=== PATIENT | female | born 1960 | race Caucasian/White ===

== ENCOUNTER 2016-12-23 05:19 | Emergency (ER) | payer OTHER ==
[~2016-12-23] VITALS: Ht 154.9 cm; Wt 124.7 kg
[~2016-12-23 05:19] MED LIST: /DIVA50TA PO; /GLIM2TA PO; /PANT40TA PO; ADV100INH INH; ADV250INH INH; ALBU17IN INH; ANTI25TA PO; ASPI1TAB PO; ATOR40TA PO; BUDE180INH INH; CARA1TAB2 PO; COLA50CA3 PO; COZA100T2 PO; CYMB60CA3 PO; DEPA500T2 PO; DULO1CAP3 PO; GABA-282 PO; GABA300C2 PO; GLIM2TAB PO; HALO05TA PO; HYDR-3363 PO; HYDR25T PO; IMIT100T PO; JANU100T PO; LEVO112T PO; LEVO137T PO; LIDO1DIS2 TD; LOSA50TA20 PO; LYRI150C PO; METF1000 PO; MIRA3350 PO; OMEP40CA2 PO; PERC5TAB6 PO; REST15CA PO; SYNT175T2 PO; SYNT25TA PO; TEMA15CA2 PO; TRAZ100T2 PO; TRAZ100T4 PO; TYLE500T7 PO; ULTR50TA PO; ZETI10TA21 PO; ZIPR80CA PO; ZIPR80CA12 PO; ZIPR80CAP PO
[2016-12-23] MEDS ORDERED: MORPHINE 4 MG/ML 1ML SYRINGE IV ONE (07:45)
[2016-12-23] MEDS ORDERED: NS 500 ML IV ONE (07:45)
[2016-12-23] MEDS ORDERED: ONDANSETRON 4MG/2ML VIAL (J2405) IV ONE (07:45)
[2016-12-23 08:08] LABS: BASO % 0.6 % (0.0-1.0); EOS # 0.4 K/mm3 (0.0-0.50); LARGE UNSTAINED CELL # 0.1 K/mm3 (0.0-0.4); LARGE UNSTAINED CELL % 0.9 % (0.0-4.0); LYMPH # 1.8 K/mm3 (1.5-4.5); MEAN CORPUSCULAR HEMOGLOBIN 27.7 pg (27.0-33.0); MEAN CORPUSCULAR HGB CONC 30.7 g/dl (32.0-36.5); MEAN CORPUSCULAR VOLUME 90.3 fl (80.0-96.0); MONO # 0.3 K/mm3 (0.0-0.8); MONO % 4.7 % (0.0-5.0); NEUTROPHILS # 3.5 K/mm3 (1.8-7.7); NEUTROPHILS % 58.7 % (36.0-66.0); PLATELET COUNT, AUTOMATED 434 k/mm3 (150-450); RED CELL DISTRIBUTION WIDTH 18.9 % (11.5-14.5)
[2016-12-23 08:17] LABS: ALBUMIN 3.5 GM/DL (3.2-5.2); ALBUMIN/GLOBULIN RATIO 0.85 (1.00-1.93); ALKALINE PHOSPHATASE 62 U/L (45-117); ALT/SGPT 13 U/L (12-78); ANION GAP 7 MEQ/L (8-16); AST/SGOT 12 U/L (15-37); BILIRUBIN,DIRECT < 0.1 MG/DL (0.0-0.2); BILIRUBIN,TOTAL 0.2 MG/DL (0.2-1.0); BLOOD UREA NITROGEN 14 MG/DL (7-18); CALCIUM LEVEL 8.9 MG/DL (8.5-10.1); CARBON DIOXIDE LEVEL 24 MEQ/L (21-32); CHLORIDE LEVEL 104 MEQ/L (98-107); CREATININE FOR GFR 0.94 MG/DL (0.55-1.02); GLOMERULAR FILTRATION RATE > 60.0 (>51); GLUCOSE, FASTING 168 MG/DL (70-105); POTASSIUM SERUM 4.2 MEQ/L (3.5-5.1); SODIUM LEVEL 135 MEQ/L (136-145); TOTAL PROTEIN 7.6 GM/DL (6.4-8.2)
[2016-12-23] MEDS ORDERED: PERC5TAB6 PO (08:45)
[2016-12-23] MEDS ORDERED: ZOFR4TAB3 PO (08:45)
[2016-12-23 08:47] VITALS: BP 138/91
== END 2016-12-23 08:58 | disposition home or self-care (01) ==
LOC: M ED 07:36
DX: K21.9 Gastro-esophageal reflux disease without esophagitis (principal); M54.5 Low back pain; I10 Essential (primary) hypertension; R56.9 Unspecified convulsions; E11.9 Type 2 diabetes mellitus without complications; E03.9 Hypothyroidism, unspecified; F33.9 Major depressive disorder, recurrent, unspecified; Z79.899 Other long term (current) drug therapy; Z79.82 Long term (current) use of aspirin; Z88.8 Allergy status to other drugs, medicaments and biological substances; Z91.018 Allergy to other foods; Z91.013 Allergy to seafood
CPT/HCPCS: 80048; 80076; 83690; 85025; 96361; 96372; 96374; 99282; J2405

== ENCOUNTER → 2017-02-01 | Outpatient (CLI) | payer OTHER ==
[~2017-02-01] MED LIST changes: +ZOFR4TAB3 PO
[2017-02-01 19:38] LABS: BASO % 0.2 % (0.0-1.0); EOS # 0.2 K/mm3 (0.0-0.50); EOS % 3.5 % (0.0-3.0); LARGE UNSTAINED CELL # 0.1 K/mm3 (0.0-0.4); LARGE UNSTAINED CELL % 1.8 % (0.0-4.0); LYMPH # 1.3 K/mm3 (1.5-4.5); LYMPH % 22.7 % (24.0-44.0); MEAN CORPUSCULAR HEMOGLOBIN 29.9 pg (27.0-33.0); MEAN CORPUSCULAR HGB CONC 30.1 g/dl (32.0-36.5); MEAN CORPUSCULAR VOLUME 99.4 fl (80.0-96.0); MONO # 0.3 K/mm3 (0.0-0.8); MONO % 5.7 % (0.0-5.0); NEUTROPHILS # 3.9 K/mm3 (1.8-7.7); NEUTROPHILS % 66.1 % (36.0-66.0); PLATELET COUNT, AUTOMATED 571 k/mm3 (150-450); RED CELL DISTRIBUTION WIDTH 18.5 % (11.5-14.5); WHITE BLOOD COUNT 5.9 K/mm3 (4.0-10.0)
[2017-02-01 20:25] LABS: ALBUMIN 3.3 GM/DL (3.2-5.2); ALBUMIN/GLOBULIN RATIO 0.89 (1.00-1.93); BILIRUBIN,TOTAL 0.3 MG/DL (0.2-1.0); CALCIUM LEVEL 8.8 MG/DL (8.5-10.1); CREATININE FOR GFR 1.02 MG/DL (0.55-1.02); FREE T4 1.38 NG/DL (0.76-1.46); GLOMERULAR FILTRATION RATE 59.3 (>51); POTASSIUM SERUM 4.1 MEQ/L (3.5-5.1)
== END ==
LOC: M WUC 16:08
PROVIDERS: ATTEND Nurse Practitioner Family
DX: R10.84 Generalized abdominal pain (principal); E03.9 Hypothyroidism, unspecified; I10 Essential (primary) hypertension

== ENCOUNTER 2017-02-08 20:26 | Observation (INO) | payer OTHER ==
[~2017-02-08] VITALS: Ht 154.9 cm; Wt 120.5 kg
[2017-02-08] MEDS ORDERED: TOUJ1.2I SC (21:06)
[2017-02-08] MEDS ORDERED: DEXTROSE 50% 50 ML SYRINGE IV STA (22:10)
[2017-02-08 22:51] LABS: BASO % 0.2 % (0.0-1.0); EOS # 0.2 K/mm3 (0.0-0.50); EOS % 2.5 % (0.0-3.0); LARGE UNSTAINED CELL # 0.1 K/mm3 (0.0-0.4); LARGE UNSTAINED CELL % 0.8 % (0.0-4.0); LYMPH # 1.7 K/mm3 (1.5-4.5); LYMPH % 27.1 % (24.0-44.0); MEAN CORPUSCULAR HEMOGLOBIN 29.1 pg (27.0-33.0); MEAN CORPUSCULAR HGB CONC 30.6 g/dl (32.0-36.5); MEAN CORPUSCULAR VOLUME 95.2 fl (80.0-96.0); MONO # 0.3 K/mm3 (0.0-0.8); NEUTROPHILS # 3.9 K/mm3 (1.8-7.7); NEUTROPHILS % 64.4 % (36.0-66.0); PLATELET COUNT, AUTOMATED 435 k/mm3 (150-450); RED CELL DISTRIBUTION WIDTH 18.8 % (11.5-14.5); WHITE BLOOD COUNT 6.1 K/mm3 (4.0-10.0)
[2017-02-08 23:20] LABS: ANION GAP 6 MEQ/L (8-16); BLOOD UREA NITROGEN 10 MG/DL (7-18); CALCIUM LEVEL 8.6 MG/DL (8.5-10.1); CARBON DIOXIDE LEVEL 28 MEQ/L (21-32); CHLORIDE LEVEL 105 MEQ/L (98-107); CREATININE FOR GFR 0.88 MG/DL (0.55-1.02); GLOMERULAR FILTRATION RATE > 60.0 (>51); GLUCOSE, FASTING 140 MG/DL (70-105); SODIUM LEVEL 139 MEQ/L (136-145)
[2017-02-09] MEDS ORDERED: D5W/0.45% SODIUM CHLORIDE 1,000 ML IV SCH (00:15)
[2017-02-09] MEDS ORDERED: ACETAMINOPHEN TAB 650MG DOSE (2X325MG) PO ONE (00:30)
[2017-02-09] MEDS ORDERED: ONDANSETRON 4MG/2ML VIAL (J2405) IV PRN (00:45)
[2017-02-09] MEDS ORDERED: TRAZ150T14 PO (01:07)
[2017-02-09] MEDS ORDERED: GEOD40CA2 PO (01:07)
[2017-02-09] MEDS ORDERED: ONDA1TAB15 PO (01:07)
[2017-02-09] MEDS ORDERED: DULO1CAP2 PO (01:07)
[2017-02-09] MEDS ORDERED: ASPI81TAEC PO (01:07)
[2017-02-09 01:10] LABS: ALBUMIN/GLOBULIN RATIO 0.91 (1.00-1.93); ALKALINE PHOSPHATASE 53 U/L (45-117); ALT/SGPT 17 U/L (12-78); AMYLASE 51 U/L (25-115); AST/SGOT 17 U/L (15-37); BILIRUBIN,DIRECT < 0.1 MG/DL (0.0-0.2); BILIRUBIN,TOTAL 0.2 MG/DL (0.2-1.0); TOTAL PROTEIN 6.3 GM/DL (6.4-8.2)
[2017-02-09] MEDS ORDERED: TEMAZEPAM 15 MG CAP PO PRN (01:15)
[2017-02-09] MEDS ORDERED: ONDANSETRON 4 MG TAB (S0181) PO PRN (01:15)
[2017-02-09] MEDS ORDERED: ALBUTEROL 90 MCG/ACT 8GM HFA INHALER INH PRN (01:15)
[2017-02-09 01:16] LABS: ERYTHROCYTE SEDIMENTATION RATE 22 mm/hr (0-30)
[2017-02-09] MEDS ORDERED: ISOVUE-370 76% 100ML VIAL (Q9967) As Ordered ONE (02:00)
[2017-02-09] MEDS: D5W/0.45% SODIUM CHLORIDE 1,000 ML IV SCH ×2 (02:00→11:53)
[2017-02-09 02:25] VITALS: BP 133/61
[2017-02-09] MEDS: traZODone 50 MG TAB PO SCH ×2 (02:37→20:33)
[2017-02-09] MEDS: DIVALPROEX 500MG *ER* TAB PO SCH ×3 (02:37→20:32)
[2017-02-09] MEDS: ATORVASTATIN 20 MG TAB PO SCH ×2 (02:37→20:31)
[2017-02-09] MEDS: OMEPRAZOLE 20 MG CAP PO SCH ×3 (02:37→20:34)
[2017-02-09] MEDS: GABAPENTIN 300 MG CAP PO SCH ×5 (02:37→20:32)
[2017-02-09] MEDS: hydrOXYzine 25 MG TAB PO SCH ×5 (02:37→20:34)
--- NOTE | 2017-02-09 02:40 | REPUSA ---
CLINICAL HISTORY: Abdominal pain. TECHNIQUE: Multiple axial, sagittal and coronal CT images were obtained through the abdomen and pelvi s after administration of intravenous contrast material. COMMENTS: Fluid-filled distended stomach suggestive of gastroparesis. The liver is mildly enlarged decreased attenuation without mass or defect. There is mild extrahepatic biliary ductal dilatation. The spleen is normal. The gallbladder is within normal limits. The pancre as is of normal contour and attenuation characteristics. There is no evidence of adrenal mass. Both kidneys demonstrate prompt and equal nephrograms. The kidneys are normal in size, shape and conf iguration. There is no evidence of renal or ureteral mass. No renal or ureteral calculi are identifie d. There is no hydroureter or hydronephrosis. No evidence for appendicitis. There is no bowel wall thickening. No evidence for small or large karlos l obstruction. There is no evidence of abdominal ascites or lymphadenopathy. There is no evidence of intrinsic or extrinsic bladder mass. There is no pelvic ascites or lymphadeno jose. Images of the lung bases show no evidence of pleural or parenchymal mass. There are no pleural effusi ons. The bony structures are free of lytic or blastic lesions. Multilevel degenerative changes are seen in volving the thoracolumbar spine. Scattered calcifications are seen involving the aorta and major bran ches compatible with atherosclerosis. IMPRESSION: Fluid-filled distended stomach suggestive of gastroparesis. Mild hepatomegaly with fatty liver infiltration. Mild extrahepatic biliary ductal dilatation measuring 8.8 mm. Moderate large bowel fecal stasis. Thank you for your kind referral of this patient.
[2017-02-09] MEDS: ZIPRASIDONE 20MG CAPSULE (GEODON) PO SCH ×3 (02:48→20:38)
[2017-02-09] MEDS ORDERED: MOM 30ML SUSPENSION UDC PO ONE (03:00)
[2017-02-09] MEDS ORDERED: FLEET ENEMA PR PRN (03:00)
[2017-02-09] MEDS ORDERED: GI COCKTAIL 50ML BTL(HYOSCYAMINE/MAALOX/LIDOCAINE VISCOUS)(1:3:1) PO PRN (03:15)
[2017-02-09] MEDS: SUCRALFATE 1 GM TAB PO SCH ×3 (05:59→17:27)
[2017-02-09 06:00] VITALS: BP 116/54
[2017-02-09] MEDS: METOCLOPRAMIDE 10 MG TAB PO SCH ×3 (06:00→17:27)
[2017-02-09] MEDS ORDERED: LEVOTHYROXINE 0.15 MG TAB (150 MCG) PO SCH (06:00)
[2017-02-09] MEDS: LEVOTHYROXINE 0.025 MG TAB (25 MCG) PO SCH (06:24)
[2017-02-09] MEDS: LEVOTHYROXINE 0.15 MG TAB (150 MCG) PO SCH (06:25)
[2017-02-09 07:27] LABS: BASO % 0.3 % (0.0-1.0); EOS # 0.2 K/mm3 (0.0-0.50); EOS % 2.7 % (0.0-3.0); LARGE UNSTAINED CELL # 0.1 K/mm3 (0.0-0.4); LYMPH # 2.1 K/mm3 (1.5-4.5); LYMPH % 32.6 % (24.0-44.0); MEAN CORPUSCULAR HEMOGLOBIN 29.6 pg (27.0-33.0); MEAN CORPUSCULAR HGB CONC 31.2 g/dl (32.0-36.5); MEAN CORPUSCULAR VOLUME 95.1 fl (80.0-96.0); MONO # 0.5 K/mm3 (0.0-0.8); MONO % 7.3 % (0.0-5.0); NEUTROPHILS # 3.4 K/mm3 (1.8-7.7); NEUTROPHILS % 55.1 % (36.0-66.0); PLATELET COUNT, AUTOMATED 411 k/mm3 (150-450); RED CELL DISTRIBUTION WIDTH 18.7 % (11.5-14.5); WHITE BLOOD COUNT 6.1 K/mm3 (4.0-10.0)
[2017-02-09 07:50] LABS: ALBUMIN 2.7 GM/DL (3.2-5.2); ALBUMIN/GLOBULIN RATIO 0.9 (1.00-1.93); BILIRUBIN,DIRECT 0.1 MG/DL (0.0-0.2); BILIRUBIN,TOTAL 0.2 MG/DL (0.2-1.0); TOTAL PROTEIN 5.7 GM/DL (6.4-8.2)
[2017-02-09 07:55] LABS: ANION GAP 7 MEQ/L (8-16); BLOOD UREA NITROGEN 8 MG/DL (7-18); CALCIUM LEVEL 8.1 MG/DL (8.5-10.1); CARBON DIOXIDE LEVEL 28 MEQ/L (21-32); CHLORIDE LEVEL 105 MEQ/L (98-107); CREATININE FOR GFR 0.85 MG/DL (0.55-1.02); GLOMERULAR FILTRATION RATE > 60.0 (>51); GLUCOSE, FASTING 76 MG/DL (70-105); MAGNESIUM LEVEL 1.9 MG/DL (1.8-2.4); POTASSIUM SERUM 3.5 MEQ/L (3.5-5.1); SODIUM LEVEL 140 MEQ/L (136-145)
--- NOTE | 2017-02-09 08:00 | REP ---
Clinical: Hypoglycemia . Comparison: 12/17/2014 . Findings: The mediastinum and cardiac silhouette are stable and within normal limits for portable technique. The lung bullock are clear without acute consolidation, effusion, or pneumothorax. Skeletal structures are intact. Impression: Normal portable chest x-ray Signed by Petey Walker MD 02/09/2017 07:51 A
[2017-02-09] MEDS ORDERED: E-Z-GAS II EFFERVESCENT PACKET (SODIUM BICARB./CITRIC ACID/SIMETHICONE) As Ordered ONE (08:11)
[2017-02-09] MEDS ORDERED: E-Z-HD 98% w/w 340GM SUSP BTL As Ordered ONE (08:11)
[2017-02-09] MEDS ORDERED: E-Z-PAQUE 96% w/w SUSP 176GM BTL As Ordered ONE ×2 (08:11→10:01)
--- NOTE | 2017-02-09 09:57 | REP ---
RIGHT UPPER QUADRANT SONOGRAPHY: HISTORY: Abdominal pain evaluate gallbladder. Comparison is made with CT images from earlier on this date. FINDINGS: Scanning through the right upper quadrant of the abdomen demonstrates multiple shadowing calculi filling the lumen of the gallbladder. No pericholecystic fluid is seen. No wall thickening is seen. The common bile duct is normal measuring 0.6 cm in greatest diameter. No focal liver lesion is seen. Pancreas is unremarkable. There is mild atrophy of the right kidney without evidence of hydronephrosis cyst or mass. Right kidney measures 8.8 x 6.3 x 4.8 cm. IMPRESSION: Cholelithiasis with multiple stones filling the lumen of the gallbladder. Otherwise negative. Signed by Ralph Mckeon MD 02/09/2017 05:07 P
[2017-02-09] MEDS ORDERED: GLUCOSE 4 GM CHEW TABLET PO PRN (11:45)
[2017-02-09] MEDS ORDERED: DEXTROSE 50% 50 ML SYRINGE IV PRN (11:45)
[2017-02-09] MEDS ORDERED: GLUCAGON FOR INJ 1 MG VIAL (J1610) SC PRN (11:45)
[2017-02-09] MEDS: HumaLOG INSULIN (NovoLOG) PER UNIT SC SCH ×2 (13:55→16:58)
[2017-02-09 14:00] VITALS: BP 131/63
[2017-02-09] MEDS: SENOKOT S TAB PO SCH ×2 (14:10→20:32)
[2017-02-09] MEDS: DULoxetine 30 MG CAP (CYMBALTA) PO SCH (14:10)
[2017-02-09] MEDS: ACETAMINOPHEN TAB 650MG DOSE (2X325MG) PO PRN ×2 (14:10→20:48)
[2017-02-09] MEDS: ASPIRIN 81 MG ENTERIC TAB PO SCH (14:11)
[2017-02-09] MEDS: LOSARTAN 50 MG TAB PO SCH (14:11)
[2017-02-09] MEDS: ENOXAPARIN 40 MG/0.4 ML SYRINGE (J1650) SC SCH (14:12)
--- NOTE | 2017-02-09 14:51 | IPNPDOC ---
Subjective Date Seen The patient was seen on 02/09/17. Subjective Chief Complaint/HPI The patient is a 56-year-old female admitted with a reason for visit of Hypoglycemia Associated With Type 2 Diabetes Melli. General: Denies: Chills, Night Sweats Constitutional: Denies: Chills, Fever Eyes: Denies: Pain, Vision change ENT: Denies: Head Aches, Ear Pain Skin: Denies: Rash, Lesions Pulmonary: Denies: Dyspnea, Cough Cardiovascular: Denies: Chest Pain, Palpitations Gastrointestinal: Reports: Nausea, Vomiting, Abdominal Pain Genitourinary: Denies: Dysuria, Frequency Hematologic: Denies: Bruising Endocrine: Denies: Polydipsia, Polyphagia Objective Physical Examination General Exam: Positive: Alert, Cooperative, No Acute Distress ENT Exam: Positive: Atraumatic, Mucous membr. moist/pink Neck Exam: Negative: JVD Chest Exam: Positive: Clear to auscultation, Normal air movement Heart Exam: Positive: Rate Normal, Normal S1, Normal S2 Abdomen Exam: Positive: Soft, Negative: Tenderness Extremity Exam: Positive: Swelling (2+ non pitting edema), Negative: Tenderness Assessment /Plan Plan/VTE VTE Prophylaxis Ordered?: Yes Plan Nausea, Vomiting with Abdominal Pain likely 2/2 Gastroparesis from Long Standing Diabetes Mellitus CT Scan of the Abd notable for fluid filled distended stomach suggestive of underlying gastroparesis, with moderate large bowel fecal stasis Ultrasound of the gallbladder notable for cholelithiasis with no evidence of cholecystitis Upper GI series ordered Continue with supportive treatment of Reglan, Zofran, milk of magnesia, Fleet enema Encourage ambulation Patient states that she is feeling better today and she has been started on a by mouth diet We will continue to monitor her progress Hypoglycemia likely secondary to underlying gastroparesis Patient has been started on a by mouth diet Insulin sliding scale for now We will continue to monitor blood sugar levels Diabetes mellitus Continue insulin sliding scale as noted above We will restart the patient's long-acting insulin once she is able to tolerate by mouth diet Diabetic Neuropathy Cont Gabapentin, Duloxetine Hypertension, stable Continue losartan Dyslipidemia Continue statin Hypothyroidism Continue levothyroxine History of seizures, stable Continue Depakote Insomnia Temazepam prn qhs GERD Continue PPI DVT prophylaxis Lovenox VS, I&O, 24H, Fishbone Vital Signs/I&O Vital Signs Date Time Temp Pulse Resp B/P (MAP) Pulse Ox O2 Delivery O2 Flow Rate FiO2 02/09/17 06:00 97.3 98 20 116/54 (74) 92 Room Air I&O- Last 24 Hours up to 6 AM 02/09/17 06:00 Intake Total 310 ml Output Total 200 ml Balance 110 ml Laboratory Data 24H LABS Laboratory Tests 2 02/08/17 20:53: Bedside Glucose (Misc Panel) 93 02/08/17 22:09: Bedside Glucose (Misc Panel) 41L 02/08/17 22:22: White Blood Count 6.1, Red Blood Count 3.95L, Hemoglobin 11.5L, Hematocrit 37.6 , Mean Corpuscular Volume 95.2, Mean Corpuscular Hemoglobin 29.1, Mean Corpuscular Hemoglobin Concent 30.6L, Red Cell Distribution Width 18.8H, Platelet Count 435, Neutrophils (%) (Auto) 64.4, Lymphocytes (%) (Auto) 27.1, Monocytes (%) (Auto) 5.0, Eosinophils (%) (Auto) 2.5, Basophils (%) (Auto) 0.2, Neutrophils # (Auto) 3.9, Lymphocytes # (Auto) 1.7, Monocytes # (Auto) 0.3, Eosinophils # (Auto) 0.2, Basophils # (Auto) 0.0, Large Unclassified Cells % 0.8 , Large Unclassified Cells # 0.1, Erythrocyte Sedimentation Rate 22 02/08/17 22:51: Anion Gap 6L, Glomerular Filtration Rate > 60.0, Blood Urea Nitrogen 10, Creatinine 0.88, Sodium Level 139, Potassium Level 4.0, Chloride Level 105, Carbon Dioxide Level 28, Calcium Level 8.6, Aspartate Amino Transf (AST/SGOT) 17 , Alanine Aminotransferase (ALT/SGPT) 17, Alkaline Phosphatase 53, Total Bilirubin 0.2, Direct Bilirubin < 0.1, Total Creatine Kinase 47, Creatine Kinase MB 2.0, Creatine Kinase MB Relative Index 4.25H, Troponin I < 0.02, C- Reactive Protein, Quantitative < 0.30, Total Protein 6.3L, Albumin 3.0L, Albumin /Globulin Ratio 0.91L, Amylase Level 51, Lipase 93 02/08/17 23:13: Bedside Glucose (Misc Panel) 85 02/09/17 00:09: Bedside Glucose (Misc Panel) 78 02/09/17 01:42: Bedside Glucose (Misc Panel) 83 02/09/17 02:00: Estimated Mean Plasma Glucose 146H, Hemoglobin A1c 6.7H, Lactic Acid Level 1.3 02/09/17 03:02: Bedside Glucose (Misc Panel) 78 02/09/17 03:48: Urine Appearance CLEAR, Urine Color YELLOW, Urine pH 6.0, Urine Specific [place] 1.042, Urine Protein NEGATIVE, Urine Glucose (UA) NEGATIVE, Urine Ketones NEGATIVE, Urine Urobilinogen 0.2, Urine Bilirubin NEGATIVE, Urine Leukocyte Esterase NEGATIVE, Urine Blood 3+H, Urine Nitrite NEGATIVE, Urine WBC (Auto) 0, Urine RBC (Auto) 2, Urine Hyaline Casts (Auto) 0, Urine Bacteria (Auto ) NEGATIVE, Urine Squamous Epithelial Cells 2, Urine Sperm (Auto) 02/09/17 06:23: Bedside Glucose (Misc Panel) 77 02/09/17 07:03: White Blood Count 6.1, Red Blood Count 3.41L, Hemoglobin 10.1L, Hematocrit 32.4L , Mean Corpuscular Volume 95.1, Mean Corpuscular Hemoglobin 29.6, Mean Corpuscular Hemoglobin Concent 31.2L, Red Cell Distribution Width 18.7H, Platelet Count 411, Neutrophils (%) (Auto) 55.1, Lymphocytes (%) (Auto) 32.6, Monocytes (%) (Auto) 7.3H, Eosinophils (%) (Auto) 2.7, Basophils (%) (Auto) 0.3 , Neutrophils # (Auto) 3.4, Lymphocytes # (Auto) 2.1, Monocytes # (Auto) 0.5, Eosinophils # (Auto) 0.2, Basophils # (Auto) 0.0, Large Unclassified Cells % 2.0 , Large Unclassified Cells # 0.1, Anion Gap 7L, Glomerular Filtration Rate > 60.0, Blood Urea Nitrogen 8, Creatinine 0.85, Sodium Level 140, Potassium Level 3.5, Chloride Level 105, Carbon Dioxide Level 28, Calcium Level 8.1L, Magnesium Level 1.9, Aspartate Amino Transf (AST/SGOT) 14L, Alanine Aminotransferase (ALT/ SGPT) 16, Alkaline Phosphatase 52, Total Bilirubin 0.2, Direct Bilirubin 0.1, Total Protein 5.7L, Albumin 2.7L, Albumin/Globulin Ratio 0.90L, Amylase Level 48 , Lipase 93, Thyroid Stimulating Hormone (TSH) 1.200 02/09/17 13:36: Bedside Glucose (Misc Panel) 68L CBC/BMP Laboratory Tests 02/08/17 22:22 Red Blood Count 3.95 L, Mean Corpuscular Volume 95.2, Mean Corpuscular Hemoglobin 29.1, Mean Corpuscular Hemoglobin Concent 30.6 L, Red Cell Distribution Width 18.8 H, Neutrophils (%) (Auto) 64.4, Lymphocytes (%) (Auto) 27.1, Monocytes (%) (Auto) 5.0, Eosinophils (%) (Auto) 2.5, Basophils (%) (Auto ) 0.2, Neutrophils # (Auto) 3.9, Lymphocytes # (Auto) 1.7, Monocytes # (Auto) 0.3, Eosinophils # (Auto) 0.2, Basophils # (Auto) 0.0 02/08/17 22:51 Calcium Level 8.6 02/09/17 07:03 Red Blood Count 3.41 L, Mean Corpuscular Volume 95.1, Mean Corpuscular Hemoglobin 29.6, Mean Corpuscular Hemoglobin Concent 31.2 L, Red Cell Distribution Width 18.7 H, Neutrophils (%) (Auto) 55.1, Lymphocytes (%) (Auto) 32.6, Monocytes (%) (Auto) 7.3 H, Eosinophils (%) (Auto) 2.7, Basophils (%) ( Auto) 0.3, Neutrophils # (Auto) 3.4, Lymphocytes # (Auto) 2.1, Monocytes # (Auto ) 0.5, Eosinophils # (Auto) 0.2, Basophils # (Auto) 0.0, Calcium Level 8.1 L Microbiology Microbiology 02/09/17 Urine Culture, Received Pending JEMMA DUBOSE MD February 09, 2017 14:50
--- NOTE | 2017-02-09 14:55 | REP ---
Partial small bowel follow-through study: History: Intractable vomiting. Abdominal pain. 1 minute 11 seconds of fluoroscopy time is utilized. 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 There is air and stool in a nondilated colon. Contrast opacified urine is seen in the urinary bladder from the previous CT study. Single contrast upper GI series shows a normal esophagus and gastroesophageal junction. Minimal reflux is observed. No stricture or hiatal hernia is seen. The stomach displays normal rugal folds and a normal mucosal pattern. No mass or ulcer is appreciated. Duodenal bulb is fully distensible and clear. C-loop is not widened. Small bowel follow-through study shows normal opacification of nondilated jejunal and ileal loops. No fold thickening, obstructive lesion, mass or ulcer is seen. Impression: Minimal gastroesophageal reflux. No other abnormality. Signed by Ralph Mckeon MD 02/09/2017 05:08 P
[2017-02-09] MEDS: MOM 30ML SUSPENSION UDC PO PRN ×2 (15:21→20:46)
[2017-02-09] MEDS: traMADol 50 MG TAB PO PRN (15:21)
[2017-02-09] MEDS ORDERED: HumaLOG INSULIN (NovoLOG) PER UNIT SC SCH (21:00)
[2017-02-09 22:00] VITALS: BP 130/60
[2017-02-10] MEDS: SUCRALFATE 1 GM TAB PO SCH ×3 (00:16→12:13)
[2017-02-10] MEDS: METOCLOPRAMIDE 10 MG TAB PO SCH ×3 (00:16→12:13)
[2017-02-10] MEDS: ACETAMINOPHEN TAB 650MG DOSE (2X325MG) PO PRN (01:11)
[2017-02-10] MEDS: traMADol 50 MG TAB PO PRN (05:23)
[2017-02-10] MEDS: LEVOTHYROXINE 0.15 MG TAB (150 MCG) PO SCH (05:40)
[2017-02-10] MEDS: LEVOTHYROXINE 0.025 MG TAB (25 MCG) PO SCH (05:40)
[2017-02-10 06:00] VITALS: BP 122/68
[2017-02-10 06:31] LABS: BASO % 0.3 % (0.0-1.0); EOS # 0.3 K/mm3 (0.0-0.50); EOS % 6.2 % (0.0-3.0); LARGE UNSTAINED CELL # 0.1 K/mm3 (0.0-0.4); LARGE UNSTAINED CELL % 2.2 % (0.0-4.0); LYMPH # 2.4 K/mm3 (1.5-4.5); LYMPH % 44.1 % (24.0-44.0); MEAN CORPUSCULAR HEMOGLOBIN 30.1 pg (27.0-33.0); MEAN CORPUSCULAR HGB CONC 31.2 g/dl (32.0-36.5); MEAN CORPUSCULAR VOLUME 96.4 fl (80.0-96.0); MONO # 0.5 K/mm3 (0.0-0.8); MONO % 8.2 % (0.0-5.0); NEUTROPHILS # 2.2 K/mm3 (1.8-7.7); PLATELET COUNT, AUTOMATED 352 k/mm3 (150-450); RED CELL DISTRIBUTION WIDTH 18.1 % (11.5-14.5); WHITE BLOOD COUNT 5.5 K/mm3 (4.0-10.0)
[2017-02-10 06:39] LABS: ANION GAP 6 MEQ/L (8-16); BLOOD UREA NITROGEN 7 MG/DL (7-18); CALCIUM LEVEL 8.6 MG/DL (8.5-10.1); CARBON DIOXIDE LEVEL 31 MEQ/L (21-32); CHLORIDE LEVEL 103 MEQ/L (98-107); CREATININE FOR GFR 0.81 MG/DL (0.55-1.02); GLOMERULAR FILTRATION RATE > 60.0 (>51); GLUCOSE, FASTING 85 MG/DL (70-105); POTASSIUM SERUM 4.1 MEQ/L (3.5-5.1); SODIUM LEVEL 140 MEQ/L (136-145)
--- NOTE | 2017-02-10 07:55 | HPE ---
DATE OF ADMISSION: 02/09/2017 PRIMARY CARE PHYSICIAN: Dr. Ata Kamara HOSPITALIST ATTENDING: Dr. Ton Delgado CHIEF COMPLAINT: Confusion, diaphoresis. I felt like I was going to pass out. I was confused and sweating. HISTORY OF PRESENT ILLNESS: This is a 56-year-old female with history of diabetes, hypothyroidism, dyslipidemia, asthma, reflux, bipolar disorder, seizure disorder, hypertension and migraines who was in her usual state of health until a week ago when she developed epigastric abdominal pain, decrease in appetite described as periumbilical pain radiating across the abdomen, none to the back. Denies any dysuria, urgency, frequency, fever or chills at that time. She had seen Dr. Ata Kamara, recommended further imaging and followup in one week. The patient described the pain as a squeezing pain with vomiting about four times daily. She has kept a bland diet and had taken some Tylenol for relief. The pain came and went, no hematemesis, no bright blood per rectum. The patient had felt very constipated. Despite all of this, she had been persistently taking her insulin and diabetic medications. For the past two days she has been increasingly confused, diaphoretic and sweating at home feeling like she was going to pass out. She took her sugar this morning and it was 65. She came to the emergency room for evaluation due to persistent symptoms. She was found to have a glucose level of 41. Hospitalist service was called for admission. The patient denies weight gain, weight loss. She has had change in appetite since last week which was decreased in oral intake due to persistent abdominal pain. She denies any fever, but had chills, no cough, vomiting or diarrhea. No urinary tract infection (UTI) symptoms. Denies dysuria, urgency or frequency. No headaches. Hospitalist service was called for admission for persistent hypoglycemia most likely secondary to her insulin with decrease in oral intake at home. PAST MEDICAL HISTORY: 1. Seizure disorder. 2. Hypertension. 3. Migraines. 4. Diabetes. 5. Hypothyroidism. 6. Dyslipidemia. 7. Osteoarthritis. 8. Asthma. 9. Reflux. 10. Bipolar disorder. PAST SURGICAL HISTORY: 1. Colonoscopy. 2. Tubal ligation. SOCIAL HISTORY: Lives alone, denies alcohol, tobacco or illicit drug use. ALLERGIES: MOTRIN causing upset stomach, SEROQUEL seizures, CORN OIL diarrhea, and SHELLFISH. HOME MEDICATIONS: - budesonide one puff twice a day - levothyroxine 175 mcg daily - Toujeo 35 units nightly - aspirin 81 daily - atorvastatin 40 daily - valproic acid 500 mg twice a day - duloxetine 90 mg daily - gabapentin 300 mg three times a day - hydroxyzine 25 four times a day - losartan 50 daily - omeprazole 40 twice a day - Zofran 4 mg every 6 hours - temazepam 15 mg nightly as needed for sleep - trazodone 150 mg nightly - Geodon 40 mg twice a day FAMILY HISTORY: Noncontributory. REVIEW OF SYSTEMS: Per history of present illness (HPI), 12-point system otherwise with negative findings aside from positive findings on HPI. PHYSICAL EXAMINATION: VITAL SIGNS: Temperature 97.8, pulse 111 sinus, respiratory 20, blood pressure 132/61, 96% on room air. GENERAL: The patient is awake, alert, oriented times three, answering questions appropriately. HEENT: He is edentulous. Pupils equal, round, reactive to light and accommodation. Extraocular muscles intact. Normocephalic atraumatic. Moist mucous membranes. NECK: No cervical lymphadenopathy, thyromegaly or jugular venous distention. LUNGS: Clear to auscultation, no wheezing, rales, or rhonchi. HEART: S1, S2, sinus rhythm. No murmurs, rubs, gallops. ABDOMEN: Soft, nontender, nondistended. Positive bowel sounds in all four quadrants. No rebound, guarding. No hepatosplenomegaly or costovertebral angle (CVA) tenderness. EXTREMITIES: No cyanosis, clubbing or pitting edema. LABORATORY DATA: White count 6.1, hemoglobin 11, hematocrit 37, platelet count 435, 64% neutrophils. Sodium 130, potassium 4, chloride 105, carbon dioxide 28, BUN 10, creatinine 0.88, glucose 140, A1c 6.7, lactic acid 1.3, calcium 8.6, total bilirubin 0.2, direct bilirubin less than 0.1, AST 17, ALT 17, alkaline phosphatase 53, total CK 47, troponin less than 0.02, MB fraction of 2. C-reactive protein less than 0.3, total protein 6.3, albumin 3, amylase 51, lipase 93. IMAGING STUDIES: CT of the abdomen and pelvis shows fluid filled distended stomach suggestive of gastropareses, mildly enlarged liver without mass or defect. There is mild extrahepatic biliary ductal dilatation. Spleen is normal. Gallbladder is within normal. Pancreas is normal. Both kidneys demonstrate prompt and equal nephrograms, normal in size, shape and configuration. Mild hepatomegaly with fatty liver infiltration. Mild extrahepatic biliary ductal dilatation measuring 8.8 mm, moderate large bowel fecal stasis. ASSESSMENT AND PLAN: This is a 56-year-old female with history of diabetes, hypertension, migraines, hypothyroidism, dyslipidemia, asthma, reflux, bipolar disorder, with prepsychiatric admission presents to the emergency room with complaints of confusion, diaphoresis for the past two days almost feeling like passing out with a one week history of epigastric discomfort, decrease in oral intake and vomiting. The patient was found to have severe hypoglycemia due to continued use of long acting insulin by decreasing oral intake and vomiting at home and metabolic acidosis secondary to vomiting. The patient is found to have gastroparesis, and large fecal stasis on CT of the abdomen and pelvis, admitted as an inpatient for two midnights for the following issues: 1. Hypoglycemia secondary to long acting insulin despite decreased oral intake and vomiting for the past week. The patient's long acting insulin has been discontinued. She will be kept on fingersticks every four hours and D5 1/2 normal saline. Infectious etiology has been ruled out for now. 2. Mild extrahepatic biliary ductal dilatation. Obtain ultrasound of gallbladder. Rule out cholelithiasis due to complaints of abdominal pain and what appears to be biliary colic. 3. Gastroparesis. Reglan every 6 hours, Carafate and Protonix. 4. Type 2 diabetes. Nothing by mouth status for now in order to obtain ultrasound of the gallbladder due to complaints of severe gastric pain. Also, rule out hiatal hernia with upper gastrointestinal (GI) series. Rule out peptic ulcer disease, empiric treatment with GI cocktail. Carafate and continue on proton pump inhibitor (PPI). 5. Hypertension. Stable. Continue home dose of losartan. 6. Hypothyroidism. Continue Synthroid. Check TSH in the morning. 7. History of asthma. As needed albuterol. 8. Bipolar disorder. Continue psychiatric medications. 9. Neuropathy. Continue Neurontin. 10. Deep venous thrombosis (DVT) prophylaxis with compression stockings and Lovenox. MTDD
[2017-02-10] MEDS: HumaLOG INSULIN (NovoLOG) PER UNIT SC SCH ×2 (07:59→12:12)
[2017-02-10] MEDS: ASPIRIN 81 MG ENTERIC TAB PO SCH (09:52)
[2017-02-10] MEDS: SENOKOT S TAB PO SCH (09:52)
[2017-02-10] MEDS: ENOXAPARIN 40 MG/0.4 ML SYRINGE (J1650) SC SCH (09:52)
[2017-02-10] MEDS: DULoxetine 30 MG CAP (CYMBALTA) PO SCH (09:52)
[2017-02-10] MEDS: OMEPRAZOLE 20 MG CAP PO SCH (09:53)
[2017-02-10] MEDS: GABAPENTIN 300 MG CAP PO SCH (09:53)
[2017-02-10] MEDS: hydrOXYzine 25 MG TAB PO SCH ×2 (09:53→12:13)
[2017-02-10] MEDS: ZIPRASIDONE 20MG CAPSULE (GEODON) PO SCH (09:53)
[2017-02-10] MEDS: DIVALPROEX 500MG *ER* TAB PO SCH (09:53)
[2017-02-10 09:55] VITALS: BP 135/72
[2017-02-10] MEDS: LOSARTAN 50 MG TAB PO SCH (09:55)
[2017-02-10] MEDS ORDERED: TRAM50TA2 PO (11:03)
[2017-02-10] MEDS ORDERED: SENN1TAB2 PO (11:03)
--- NOTE | 2017-02-10 11:21 | DS.PDOC ---
Discharge Summary General Date of Admission February 08, 2017 at 22:02 Date of Discharge 02/10/17 Primary Care Physician: Ata Kamara [facility] Discharge Summary PROCEDURES PERFORMED DURING STAY: None. ADMITTING DIAGNOSES: 1. . Abdominal pain likely 2/2 Constipation from Gastroparesis from long standing DM 2. Hypoglycemic episode 2/2 Decreased PO Intake and Continuation of Basal Insulin 3. Cholelithiasis DISCHARGE DIAGNOSES: 1. . Abdominal pain likely 2/2 Constipation from Gastroparesis from long standing DM 2. Hypoglycemic episode 2/2 Decreased PO Intake and Continuation of Basal Insulin 3. Cholelithiasis COMPLICATIONS/CHIEF COMPLAINT: Hypoglycemia Associated With Type 2 Diabetes Melli. HISTORY OF PRESENT ILLNESS: . 56-year-old female with history of diabetes, hypothyroidism, dyslipidemia, asthma, reflux, bipolar disorder, seizure disorder, hypertension and migraines who was in her usual state of health until a week ago when she developed epigastric abdominal pain, decrease in appetite described as periumbilical pain radiating across the abdomen, but not to the back. The patient states that during this time she continued to take her normally prescribed basal insulin dose at night. She reports that she took her blood sugar levels this morning and it was noted to be in the 40s. The hospitalist service was called for admission. During hospitalization, a CT scan of the abdomen was obtained which revealed fluid distended stomach suggestive of gastroparesis with moderate large bowel fecal stasis. In addition, an ultrasound of the liver was obtained which revealed cholelithiasis with multiple stones filling the lumen of the gallbladder but no pericholecystic fluid was seen, and the common bile duct was measured within normal limits. LFT's and amylase/lipase were noted to be within normal limits. The patient was given a bowel regimen, antiemetics and analgesics as well as IV fluid hydration. Her diet was subsequently advanced and the patient has tolerated this well. During this time, the patient denies any abdominal pain and notes that she has felt much better after having a bowel movement. The patient denies any right upper quadrant pain and notes that her pain was more diffusely located across the abdomen. She denies similar occurrences in the past. I discussed the findings of cholelithiasis with multiple stones in the gallbladder with the patient. She states that she will follow up with her primary care physician and obtain a referral for surgery for possible cholecystectomy in the future. I advised the patient to cut down on her basal insulin dosing if she is not eating or able to tolerate a by mouth diet in the future due to sickness, to avoid hypoglycemic episodes. In addition I have prescribed the patient medication for stool softening as this appears to be the patient's primary problem on this admission. At this time, the patient states that she is eager to return home. Physical therapy has cleared the patient to return home. DISCHARGE MEDICATIONS: Please see below. ALLERGIES: Please see below. PHYSICAL EXAMINATION ON DISCHARGE: VITAL SIGNS: Please see below. General Exam: Positive: Alert, Cooperative, No Acute Distress ENT Exam: Positive: Atraumatic, Mucous membr. moist/pink Neck Exam: Negative: JVD Chest Exam: Positive: Clear to auscultation, Normal air movement Heart Exam: Positive: Rate Normal, Normal S1, Normal S2 Abdomen Exam: Positive: Soft, Negative: Tenderness Extremity Exam: Positive: Swelling (2+ non pitting edema), Negative: Tenderness LABORATORY DATA: Please see below. IMAGING: RIGHT UPPER QUADRANT SONOGRAPHY: HISTORY: Abdominal pain evaluate gallbladder. Comparison is made with CT images from earlier on this date. FINDINGS: Scanning through the right upper quadrant of the abdomen demonstrates multiple shadowing calculi filling the lumen of the gallbladder. No pericholecystic fluid is seen. No wall thickening is seen. The common bile duct is normal measuring 0.6 cm in greatest diameter. No focal liver lesion is seen. Pancreas is unremarkable. There is mild atrophy of the right kidney without evidence of hydronephrosis cyst or mass. Right kidney measures 8.8 x 6.3 x 4.8 cm. IMPRESSION: Cholelithiasis with multiple stones filling the lumen of the gallbladder. Otherwise negative. CLINICAL HISTORY: Abdominal pain. TECHNIQUE: Multiple axial, sagittal and coronal CT images were obtained through the abdomen and pelvis after administration of intravenous contrast material. COMMENTS: Fluid-filled distended stomach suggestive of gastroparesis. The liver is mildly enlarged decreased attenuation without mass or defect. There is mild extrahepatic biliary ductal dilatation. The spleen is normal. The gallbladder is within normal limits. The pancreas is of normal contour and attenuation characteristics. There is no evidence of adrenal mass. Both kidneys demonstrate prompt and equal nephrograms. The kidneys are normal in size, shape and configuration. There is no evidence of renal or ureteral mass. No renal or ureteral calculi are identified. There is no hydroureter or hydronephrosis. No evidence for appendicitis. There is no bowel wall thickening. No evidence for small or large bowel obstruction. There is no evidence of abdominal ascites or lymphadenopathy. There is no evidence of intrinsic or extrinsic bladder mass. There is no pelvic ascites or lymphadenopathy. Images of the lung bases show no evidence of pleural or parenchymal mass. There are no pleural effusions. The bony structures are free of lytic or blastic lesions. Multilevel degenerative changes are seen involving the thoracolumbar spine. Scattered calcifications are seen involving the aorta and major branches compatible with atherosclerosis. IMPRESSION: Fluid-filled distended stomach suggestive of gastroparesis. Mild hepatomegaly with fatty liver infiltration. Mild extrahepatic biliary ductal dilatation measuring 8.8 mm. Moderate large bowel fecal stasis. PROGNOSIS: Medically stable at this time ACTIVITY: As tolerated. DIET: . Carb consistent diet DISCHARGE PLAN: DISPOSITION: . Home DISCHARGE INSTRUCTIONS: 1. . Follow-up with primary care physician within one week 2. . Obtain outpatient surgery referral for follow up for possible cholecystectomy for cholelithiasis found on ultrasound of the liver/gallbladder 3. . Return to ER if symptoms return or worsen. DISCHARGE CONDITION: Stable. TIME SPENT ON DISCHARGE: Greater than 30 minutes. Vital Signs/I&Os Vital Signs Date Time Temp Pulse Resp B/P (MAP) Pulse Ox O2 Delivery O2 Flow Rate FiO2 02/10/17 09:55 135/72 02/10/17 06:00 96.5 88 18 98 Room Air I&O- Last 24 Hours up to 6 AM 02/10/17 06:00 Intake Total 1940 ml Output Total 900 ml Balance 1040 ml Laboratory Data Labs 24H Laboratory Tests 2 02/09/17 13:36: Bedside Glucose (Misc Panel) 68L 02/09/17 16:46: Bedside Glucose (Misc Panel) 97 02/09/17 19:34: Bedside Glucose (Misc Panel) 150H 02/09/17 20:04: Bedside Glucose (Misc Panel) 182H 02/10/17 06:13: White Blood Count 5.5, Red Blood Count 3.46L, Hemoglobin 10.4L, Hematocrit 33.4L , Mean Corpuscular Volume 96.4H, Mean Corpuscular Hemoglobin 30.1, Mean Corpuscular Hemoglobin Concent 31.2L, Red Cell Distribution Width 18.1H, Platelet Count 352, Neutrophils (%) (Auto) 39.0, Lymphocytes (%) (Auto) 44.1H, Monocytes (%) (Auto) 8.2H, Eosinophils (%) (Auto) 6.2H, Basophils (%) (Auto) 0.3 , Neutrophils # (Auto) 2.2, Lymphocytes # (Auto) 2.4, Monocytes # (Auto) 0.5, Eosinophils # (Auto) 0.3, Basophils # (Auto) 0.0, Large Unclassified Cells % 2.2 , Large Unclassified Cells # 0.1, Anion Gap 6L, Glomerular Filtration Rate > 60.0, Blood Urea Nitrogen 7, Creatinine 0.81, Sodium Level 140, Potassium Level 4.1, Chloride Level 103, Carbon Dioxide Level 31, Calcium Level 8.6 CBC/BMP Laboratory Tests 02/10/17 06:13 Red Blood Count 3.46 L, Mean Corpuscular Volume 96.4 H, Mean Corpuscular Hemoglobin 30.1, Mean Corpuscular Hemoglobin Concent 31.2 L, Red Cell Distribution Width 18.1 H, Neutrophils (%) (Auto) 39.0, Lymphocytes (%) (Auto) 44.1 H, Monocytes (%) (Auto) 8.2 H, Eosinophils (%) (Auto) 6.2 H, Basophils (%) (Auto) 0.3, Neutrophils # (Auto) 2.2, Lymphocytes # (Auto) 2.4, Monocytes # ( Auto) 0.5, Eosinophils # (Auto) 0.3, Basophils # (Auto) 0.0, Calcium Level 8.6 FSBS Laboratory Tests Test 02/09/17 13:36 02/09/17 16:46 02/09/17 19:34 02/09/17 20:04 Range/Units Bedside Glucose (Misc Panel) 68 97 150 182 70-105 MG/DL Microbiology Microbiology 02/09/17 Respiratory Virus Panel (PCR) (JEFFERY) - Final, Complete 02/09/17 Urine Culture - Final, Complete Discharge Medications Scheduled (Lee Verdugo) 300 Unit/Ml Inj, 35 UNIT SC QHS, (Reported) Aspirin (Aspirin EC) 81 Mg Tabec, 81 MG PO DAILY, (Reported) Atorvastatin Calcium (Atorvastatin Calcium) 40 Mg Tab, 40 MG PO QHS, (Reported) Budesonide (Pulmicort Flexhaler) 120 Puff/Inhaler Aerp, 1 PUFF INH BID, ( Reported) Divalproex Sodium (Depakote ER) 500 Mg Tab, 500 MG PO BID, (Reported) Duloxetine Hcl (Duloxetine HCl) 30 Mg Cap, 90 MG PO DAILY, (Reported) Gabapentin (Gabapentin) 300 Mg Cap, 300 MG PO TID, (Reported) Hydroxyzine HCl (Hydroxyzine HCl) 25 Mg Tab, 25 MG PO QID, (Reported) Levothyroxine Sodium (Synthroid) 175 Mcg Tab, 175 MCG PO DAILY, (Reported) Losartan Potassium (Losartan Potassium) 50 Mg Tab, 50 MG PO DAILY, (Reported) Omeprazole (Omeprazole) 40 Mg Cap, 40 MG PO BID, (Reported) Trazodone HCl (Trazodone HCl) 150 Mg Tab, 150 MG PO QHS, (Reported) Ziprasidone Hydrochloride (Geodon) 40 Mg Cap, 40 MG PO BID, (Reported) Scheduled PRN (Senna Plus 8.6-50 mg) 1 Tab Tab, 2 TAB PO BIDP PRN for cons Albuterol Sulfate (Ventolin Hfa) 200 Puff/8 Gm Aers, 2 PUFF INH Q4H PRN for SHORTNESS OF BREATH, (Reported) Ondansetron HCl (Ondansetron HCl) 4 Mg Tab, 4 MG PO Q6H PRN for NAUSEA OR VOMITING, (Reported) Temazepam (Temazepam) 15 Mg Cap, 15 MG PO QHS PRN for SLEEP, (Reported) Tramadol HCl (Tramadol HCl) 50 Mg Tab, 50 MG PO Q12HP PRN for PAIN Allergies Coded Allergies: Quetiapine (Unverified Allergy, Severe, SEIZURES, 12/23/16) Shellfish Allergy (Verified Allergy, Severe, ANAPHYLAXIS, 12/23/16) Atorvastatin (Verified Adverse Reaction, Intermediate, ELEVATED LIVER ENZYMES, 02/10/17) Pt. actively taking atorvastatin and denies having any allergic reaction. Liver enzymes are WNL at this time. [place] Oil (Verified Adverse Reaction, Intermediate, DIARRHEA, 12/23/16) Ibuprofen (Unverified Adverse Reaction, Mild, UPSET STOMACH, 12/23/16) JEMMA DUBOSE MD February 10, 2017 11:21
== END 2017-02-10 12:45 | disposition home health service (06) ==
LOC: EDBD 20:26 → M ED 22:01 → M ED INP 22:02 → M MSPAV 02-09 02:21
PROVIDERS: ADMIT General Practice; ATTEND Internal Medicine
DX: R10.33 Periumbilical pain (principal); E11.43 Type 2 diabetes mellitus with diabetic autonomic (poly)neuropathy; E11.649 Type 2 diabetes mellitus with hypoglycemia without coma; E03.9 Hypothyroidism, unspecified; E78.4 Other hyperlipidemia; J45.909 Unspecified asthma, uncomplicated; K21.9 Gastro-esophageal reflux disease without esophagitis; F31.9 Bipolar disorder, unspecified; K80.20 Calculus of gallbladder without cholecystitis without obstruction; I10 Essential (primary) hypertension; Z79.82 Long term (current) use of aspirin; Z79.899 Other long term (current) drug therapy; Z88.8 Allergy status to other drugs, medicaments and biological substances; Z91.013 Allergy to seafood

== ENCOUNTER 2019-02-01 05:30 | Emergency (ER) | payer OTHER ==
[~2019-02-01 05:30] MED LIST changes: -/DIVA50TA PO; -/GLIM2TA PO; -/PANT40TA PO; +AMAR1TAB5 PO; -ASPI1TAB PO; +ASPI81TA26 PO; +ASPI81TAEC PO; -ATOR40TA PO; +ATOR40TA75 PO; +DEPA1TAB3 PO; +DULO1CAP2 PO; -GABA-282 PO; +GABA-843 PO; +GEOD40CA13 PO; +HALO0.5H PO; -HALO05TA PO; -HYDR25T PO; +LOSA50TA88 PO; +ONDA4TAB5 PO; +PERC5TAB12 PO; -PERC5TAB6 PO; +PROT1TAB2 PO; +SENN1TAB40 PO; +TOUJ1.2I SC; +TRAM50TA2 PO; +TRAZ-163 PO; -TRAZ100T4 PO; +TRAZ1TAB14 PO; +ZOFR4TAB14 PO; -ZOFR4TAB3 PO
--- NOTE | 2019-02-01 07:11 | REP ---
Clinical: Trauma. Fall. Pain. Technique: Internal rotation, external rotation, and Y view of the left shoulder. Findings: Mild arthritic changes include cortical irregularity and subtle spurring at the acromioclavicular joint. The glenohumeral joint is intact and relatively normal for age. Subacromial space is normal. No acute fracture or dislocation is appreciated. Impression: Mild arthritic changes. No acute fracture or dislocation. Electronically Signed by Petey Walker MD 02/01/2019 07:03 A
--- NOTE | 2019-02-01 07:13 | REP ---
Clinical: Trauma. Fall. Pain. Technique: Neutral and frog lateral views of the left hip. Findings: Age-related degenerative change including joint space narrowing and subtle spurring along the acetabular roof noted. No acute fracture dislocation. Surrounding soft tissues normal. Impression: Age-related degenerative change. No acute fracture or dislocation. Electronically Signed by Petey Walker MD 02/01/2019 07:04 A
[2019-02-01] MEDS ORDERED: ACETAMINOPHEN 325 MG TAB PO ONE (07:15)
--- NOTE | 2019-02-01 07:15 | REP ---
Clinical: Fall. Pain. Technique: AP, lateral, bilateral oblique and sunrise views of the left knee. Findings: Early advanced tricompartmental osteoarthritic degenerative changes are appreciated. No obvious acute fracture or dislocation. No obvious effusion. Impression: Early advanced tricompartmental osteoarthritic changes. No acute fracture dislocation identified. If the patient remains symptomatic consider CT or MRI for further investigation. Electronically Signed by Petey Walker MD 02/01/2019 07:06 A
[2019-02-01 08:18] VITALS: BP 133/64
== END 2019-02-01 08:18 | disposition home or self-care (01) ==
LOC: M ED 05:30
DX: M17.12 Unilateral primary osteoarthritis, left knee (principal); M19.012 Primary osteoarthritis, left shoulder; M16.12 Unilateral primary osteoarthritis, left hip; W19.XXXA Unspecified fall, initial encounter; Y92.099 Unspecified place in other non-institutional residence as the place of occurrence of the external cause; Y93.01 Activity, walking, marching and hiking; Y99.9 Unspecified external cause status; E11.9 Type 2 diabetes mellitus without complications; I10 Essential (primary) hypertension; F43.10 Post-traumatic stress disorder, unspecified; F20.9 Schizophrenia, unspecified; F41.9 Anxiety disorder, unspecified; F31.9 Bipolar disorder, unspecified; M54.9 Dorsalgia, unspecified; R42 Dizziness and giddiness; K21.9 Gastro-esophageal reflux disease without esophagitis; J45.909 Unspecified asthma, uncomplicated; E78.5 Hyperlipidemia, unspecified; R56.9 Unspecified convulsions; Z87.440 Personal history of urinary (tract) infections; Z79.82 Long term (current) use of aspirin; Z79.899 Other long term (current) drug therapy; Z88.6 Allergy status to analgesic agent; Z88.8 Allergy status to other drugs, medicaments and biological substances; Z91.02 Food additives allergy status; Z91.018 Allergy to other foods

== ENCOUNTER 2019-03-20 20:09 | Emergency (ER) | payer OTHER ==
[~2019-03-20 20:09] MED LIST changes: -DULO1CAP2 PO; +DULO1CAP5 PO; +DULO1CAP6 PO
[2019-03-20 21:53] LABS: BASO # 0.1 10^3/uL (0.0-0.2); BASO % 0.6 % (0.0-1.0); EOS # 0.5 10^3/uL (0.0-0.50); EOS % 5.7 % (0.0-3.0); HEMATOCRIT 35.9 % (36.0-47.0); HEMOGLOBIN 11.2 g/dl (12.0-15.5); LYMPH # 2.1 10^3/uL (1.5-4.5); LYMPH % 25.4 % (24.0-44.0); MEAN CORPUSCULAR HEMOGLOBIN 28.2 pg (27.0-33.0); MEAN CORPUSCULAR HGB CONC 31.2 g/dl (32.0-36.5); MEAN CORPUSCULAR VOLUME 90.4 fl (80.0-96.0); MONO # 0.8 10^3/uL (0.0-0.8); MONO % 10.4 % (0.0-5.0); NEUTROPHILS # 4.6 10^3/uL (1.8-7.7); NEUTROPHILS % 57.3 % (36.0-66.0); PLATELET COUNT, AUTOMATED 285 10^3/uL (150-450); RED BLOOD COUNT 3.97 10^6/uL (4.00-5.40); WHITE BLOOD COUNT 8.1 10^3/uL (4.0-10.0)
[2019-03-20 22:25] LABS: ALBUMIN 3.5 GM/DL (3.2-5.2); BILIRUBIN,DIRECT 0.1 MG/DL (0.0-0.2); BILIRUBIN,TOTAL 0.3 MG/DL (0.2-1.0); CREATININE FOR GFR 1.02 MG/DL (0.55-1.30); GLOMERULAR FILTRATION RATE 58.8 (>45); TOTAL PROTEIN 7.8 GM/DL (6.4-8.2)
[2019-03-20 22:29] LABS: C REACTIVE PROTEIN QUANTITATIV < 0.30 MG/DL (0.00-0.30); NT-PRO BNP 149 PG/ML (<125)
[2019-03-20 23:09] VITALS: BP 160/94
[2019-03-20] MEDS ORDERED: LASI20TA3 PO (23:41)
[2019-03-20] MEDS ORDERED: FUROSEMIDE 20 MG TAB PO ONE (23:45)
== END 2019-03-21 00:03 | disposition home or self-care (01) ==
LOC: M ED 20:09
DX: R60.0 Localized edema (principal); E11.9 Type 2 diabetes mellitus without complications; J44.9 Chronic obstructive pulmonary disease, unspecified; Z79.4 Long term (current) use of insulin; Z79.51 Long term (current) use of inhaled steroids; Z79.82 Long term (current) use of aspirin; Z79.891 Long term (current) use of opiate analgesic; Z79.899 Other long term (current) drug therapy; Z88.6 Allergy status to analgesic agent; Z88.8 Allergy status to other drugs, medicaments and biological substances; Z91.013 Allergy to seafood; Z91.018 Allergy to other foods

== ENCOUNTER → 2019-04-18 | Outpatient (REF) | payer OTHER ==
[~2019-04-18] MED LIST changes: +LASI20TA3 PO
[2019-04-18 16:11] LABS: FREE T4 1.06 NG/DL (0.76-1.46); PERCENT SATURATION 10.7 % (13.2-45.0); THYROID STIMULATING HORMONE 18.6 uIU/ML (0.358-3.740)
[2019-04-18 16:13] LABS: BASO # 0.1 10^3/uL (0.0-0.2); BASO % 0.7 % (0.0-1.0); EOS # 0.4 10^3/uL (0.0-0.50); EOS % 5.5 % (0.0-3.0); LYMPH # 2.1 10^3/uL (1.5-4.5); MEAN CORPUSCULAR HEMOGLOBIN 28.6 pg (27.0-33.0); MEAN CORPUSCULAR HGB CONC 30.8 g/dl (32.0-36.5); MEAN CORPUSCULAR VOLUME 92.9 fl (80.0-96.0); MONO # 0.6 10^3/uL (0.0-0.8); MONO % 9.2 % (0.0-5.0); NEUTROPHILS # 3.6 10^3/uL (1.8-7.7); NEUTROPHILS % 52.7 % (36.0-66.0); PLATELET COUNT, AUTOMATED 297 10^3/uL (150-450); WHITE BLOOD COUNT 6.9 10^3/uL (4.0-10.0)
[2019-04-18 16:22] LABS: HEMOGLOBIN A1c 9.4 %
== END ==
LOC: M SFHCPLAZ 14:13
PROVIDERS: ATTEND Physician Assistant Medical
DX: D64.9 Anemia, unspecified (principal); E11.9 Type 2 diabetes mellitus without complications; E03.9 Hypothyroidism, unspecified

== ENCOUNTER → 2019-04-28 | Outpatient (CLI) | payer OTHER ==
--- NOTE | 2019-04-28 11:27 | REP ---
BILATERAL LOWER EXTREMITY DOPPLER VENOUS ULTRASOUND: Comparison: None. Technique: The deep venous system of the bilateral lower extremities is evaluated with weller scale imaging, compression ultrasound, color imaging and duplex Doppler interrogation. Examination from the groin through the popliteal fossa into the proximal calf. Local history: Lymphedema, debilitation, evaluate venous system. Findings: There is full compressibility from the common femoral vein in the inguinal region through the popliteal vein on both sides. Color imaging confirms patency throughout the course of the deep venous system. There is respiratory variation and augmented flow at all levels. Impression: 1. No Doppler venous ultrasound evidence of DVT in the bilateral lower extremities. 2. Technologist notes indicate visualization difficult due to body habitus considerations. No visible thrombus. Electronically Signed by Yariel Moss MD 04/28/2019 11:19 A
== END ==
LOC: M RAD 09:57
PROVIDERS: ATTEND Physician Assistant Medical
DX: R53.81 Other malaise (principal)

== ENCOUNTER 2019-05-18 10:00 | Outpatient (RCR) | payer OTHER ==
[~2019-05-18 10:00] MED LIST changes: -ACET500T15 PO; -ACET650T15 PO; -AMMO12CR7 TOP; -AMOX500T PO; -ASPI81TA85 PO; -BASA100I SC; -BUSP10TA; -BUSP10TA PO; -FURO20TA2 PO; -GLIM2TAB4 PO; -HYDR-643 PO; -HYDR50TA70 PO; -LEVO2TA PO; -LIDO5TD TD; -MELO7.5T35; -METF-791; -MOBI4TAB PO; -NYAM10003; -NYST1POW9 TOP; -OMEP-221 PO; +OMEP40CA2 PO; -OMEP40CA97 PO; -ONDA-83 PO; +ONDA4TAB5 PO; -PIOG1TAB36 PO; -SENN-53 PO; +SENN1TAB40 PO; -SYST1SOL OU; -TIZA2TA; -TIZA2TA PO; +TRAZ-163 PO; -TRAZ-257 PO; -VALP1CAP2 PO; -VOLT1GEL15 TOP
== END 2019-05-20 ==
LOC: M PT 10:00
PROVIDERS: ATTEND Physician Assistant Medical
DX: R53.81 Other malaise (principal)

== ENCOUNTER → 2019-05-18 | Outpatient (CLI) | payer OTHER ==
[~2019-05-18] MED LIST changes: +ACET500T15 PO; +ACET650T15 PO; +AMMO12CR7 TOP; +AMOX500T PO; +ASPI81TA85 PO; +BASA100I SC; +BUSP10TA; +BUSP10TA PO; +FURO20TA2 PO; +GLIM2TAB4 PO; +HYDR-643 PO; +HYDR50TA70 PO; +LEVO2TA PO; +LIDO5TD TD; +MELO7.5T35; +METF-791; +MOBI4TAB PO; +NYAM10003; +NYST1POW9 TOP; +OMEP-221 PO; -OMEP40CA2 PO; +OMEP40CA97 PO; +ONDA-83 PO; -ONDA4TAB5 PO; +PIOG1TAB36 PO; +SENN-53 PO; -SENN1TAB40 PO; +SYST1SOL OU; +TIZA2TA; +TIZA2TA PO; -TRAZ-163 PO; +TRAZ-257 PO; +VALP1CAP2 PO; +VOLT1GEL15 TOP
--- NOTE | 2019-05-18 21:25 | REP ---
Clinical: Right wrist pain. No history of trauma. Technique: AP and lateral views of the right wrist. Findings: Small calcifications and/or bony fragments are identified at the first carpometacarpal joint space and anteriorly noted on lateral radiograph which may represent elements of chondrocalcinosis and/or small fracture fragments related to prior trauma. Dilation is required. The carpal bones appear otherwise relatively intact and within normal limits for age. Distal radius and ulna as well as visualized metacarpal bones appear essentially age-appropriate. Impression: Nonspecific findings as described above. Electronically Signed by Petey Walker MD 05/18/2019 09:17 P
== END ==
LOC: M RAD 11:09
PROVIDERS: ATTEND Physician Assistant Medical
DX: M25.531 Pain in right wrist (principal)

== ENCOUNTER → 2019-05-26 | Outpatient (CLI) | payer OTHER ==
--- NOTE | 2019-06-01 08:11 | ECHO ---
DATE OF PROCEDURE: 05/26/2019 DATE OF : 1960 AGE: 58 REFERRING PROVIDER: JENNA Fink REASON FOR STUDY: Heart failure, unspecified. 2-D MEASUREMENTS: IVS: 0.9 cm LV: 4.8 cm LVPW: 0.9 cm LA: 3.6 cm Aorta: 2.6 cm RV: 2.7 cm IVS: 1.8 cm DOPPLER MEASUREMENTS: Peak velocity across the aortic valve: 1.9 m/s Peak velocity across the LVOT: 1.1 m/s Mitral E: 1.1 Mitral A: 0.9 Ratio: 1.3 Maximum tricuspid valve velocity: 2.7 m/s 2-D COMMENTS: 1. Normal left ventricular size, wall thickness, and normal global left ventricular systolic function. The estimated ventricular systolic ejection fraction is 60-65%. 2. Normal left atrium. Normal right atrium and right ventricle. 3. The atrial septum appeared to be normal without evidence of defect or shunt. 4. Normal aortic root. 5. A small pericardial effusion was noted, no evidence of cardiac tamponade. 6. Mildly calcified aortic valve with normal leaflet excursion. The mitral valve as well as the tricuspid valve and pulmonic valve appeared to be normal. The proximal pulmonary artery branches were not well visualized. 7. The inferior vena cava was normal in size, central venous pressure is most likely normal. DOPPLER: Detects trace mitral regurgitation and mild tricuspid regurgitation. Trace pulmonic regurgitation also detected. The calculated pulmonary artery systolic pressure varies between 30-40 mmHg. Assessment of the left ventricular diastolic function also appeared to be normal. IMPRESSION: 1. Normal global left ventricular systolic and diastolic function. 2. Aortic valve sclerosis with trivial aortic stenosis. There was no aortic regurgitation. 3. Trace mitral regurgitation. 4. Mild tricuspid regurgitation with probably mild pulmonary hypertension. 5. A small pericardial effusion was noted, no evidence of cardiac tamponade.
== END ==
LOC: M CARPUL 09:41
PROVIDERS: ATTEND Physician Assistant Medical
DX: I50.9 Heart failure, unspecified (principal)

== ENCOUNTER 2019-06-02 10:28 | Outpatient (RCR) | payer OTHER | END 2019-06-19 | LOC: M PT 10:28 | PROVIDERS: ATTEND Physician Assistant Medical | DX: R53.81 Other malaise (principal) ==

== ENCOUNTER 2019-06-08 12:20 | Emergency (ER) | payer OTHER ==
[~2019-06-08] VITALS: Ht 154.9 cm; Wt 123.2 kg
[2019-06-08 12:54] LABS: BASO % 0.6 % (0.0-1.0); EOS # 0.4 10^3/uL (0.0-0.5); EOS % 4.9 % (0.0-3.0); HEMATOCRIT 36.6 % (36.0-47.0); HEMOGLOBIN 11.4 g/dl (12.0-15.5); LYMPH # 1.8 10^3/uL (1.5-5.0); LYMPH % 25.6 % (24.0-44.0); MEAN CORPUSCULAR HEMOGLOBIN 27.6 pg (27.0-33.0); MEAN CORPUSCULAR HGB CONC 31.1 g/dl (32.0-36.5); MEAN CORPUSCULAR VOLUME 88.6 fl (80.0-96.0); MONO # 0.7 10^3/uL (0.0-0.8); MONO % 9.6 % (0.0-5.0); NEUTROPHILS # 4.2 10^3/uL (1.5-8.5); NEUTROPHILS % 58.7 % (36.0-66.0); PLATELET COUNT, AUTOMATED 286 10^3/uL (150-450); RED BLOOD COUNT 4.13 10^6/uL (4.00-5.40); WHITE BLOOD COUNT 7.1 10^3/uL (4.0-10.0)
[2019-06-08 13:31] LABS: INR 1.07; PROTHROMBIN TIME 13.7 SECONDS (11.8-14.0)
[2019-06-08 13:49] LABS: ALT/SGPT 12 U/L (12-78); BILIRUBIN,DIRECT < 0.1 MG/DL (0.0-0.2); BILIRUBIN,TOTAL 0.3 MG/DL (0.2-1.0); BLOOD UREA NITROGEN 19 MG/DL (7-18); CALCIUM LEVEL 8.7 MG/DL (8.8-10.2); CARBON DIOXIDE LEVEL 27 MEQ/L (21-32); CHLORIDE LEVEL 100 MEQ/L (98-107); CK-MB VALUE MASS < 1.0 NG/ML (<3.6); CPK CREATINE PHOSPHOKINASE 25 U/L (26-192); CREATININE FOR GFR 1.05 MG/DL (0.55-1.30); GLOMERULAR FILTRATION RATE 56.9 (>45); GLUCOSE, FASTING 360 MG/DL (70-100); LIPASE 113 U/L (73-393); NT-PRO BNP 175 PG/ML (<125); POTASSIUM SERUM 4.4 MEQ/L (3.5-5.1); SODIUM LEVEL 135 MEQ/L (136-145); TOTAL PROTEIN 6.8 GM/DL (6.4-8.2); TROPONIN I < 0.02 NG/ML (< 0.10)
--- NOTE | 2019-06-08 14:13 | REP ---
CHEST, SINGLE VIEW: Single view of the chest is performed. There is mild elevation of the right hemidiaphragm. This is similar to the prior study 02/09/2017. There is no acute infiltrate or pulmonary edema. The heart is at the upper limits of normal in size. Mediastinal silhouette is unchanged. There are degenerative changes of the spine. IMPRESSION: No acute pulmonary disease. Electronically Signed by Pierre Vasquez MD 06/08/2019 05:40 P
[2019-06-08] MEDS ORDERED: HumuLIN R (REGULAR) INSULIN (NovoLIN R) **100U/ML** PER UNIT IV ONE (14:15)
[2019-06-08 17:07] LABS: HEMOGLOBIN A1c 10.9 %
[2019-06-08 17:15] VITALS: BP 171/74
--- NOTE | 2019-06-08 21:40 | ECGEPIP ---
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
== END 2019-06-08 17:25 | disposition home or self-care (01) ==
LOC: M ED 12:20 → EDBD 12:20 → M ED 17:25
DX: E11.65 Type 2 diabetes mellitus with hyperglycemia (principal); I10 Essential (primary) hypertension; J45.909 Unspecified asthma, uncomplicated; E07.9 Disorder of thyroid, unspecified; M79.7 Fibromyalgia; E78.9 Disorder of lipoprotein metabolism, unspecified; F43.10 Post-traumatic stress disorder, unspecified; F20.9 Schizophrenia, unspecified; Z79.899 Other long term (current) drug therapy; Z79.890 Hormone replacement therapy; Z79.82 Long term (current) use of aspirin; Z88.8 Allergy status to other drugs, medicaments and biological substances; Z91.018 Allergy to other foods

== ENCOUNTER → 2019-06-14 | Outpatient (REF) | payer OTHER ==
[2019-06-14 14:07] LABS: ALBUMIN 3.4 GM/DL (3.2-5.2); ALT/SGPT 13 U/L (12-78); BILIRUBIN,TOTAL 0.3 MG/DL (0.2-1.0); BLOOD UREA NITROGEN 13 MG/DL (7-18); CALCIUM LEVEL 9.4 MG/DL (8.8-10.2); CARBON DIOXIDE LEVEL 26 MEQ/L (21-32); CHLORIDE LEVEL 104 MEQ/L (98-107); GLOMERULAR FILTRATION RATE > 60.0 (>45); GLUCOSE, FASTING 184 MG/DL (70-100); NT-PRO BNP 144 PG/ML (<125); SODIUM LEVEL 139 MEQ/L (136-145); TOTAL PROTEIN 7.4 GM/DL (6.4-8.2)
== END ==
LOC: M SFHCPLAZ 11:51
PROVIDERS: ATTEND Physician Assistant Medical
DX: I50.9 Heart failure, unspecified (principal)

== ENCOUNTER 2019-07-11 17:02 | Emergency (ER) | payer OTHER ==
[~2019-07-11] VITALS: Ht 154.9 cm; Wt 109.5 kg
[~2019-07-11 17:02] MED LIST changes: -OMEP40CA2 PO; +OMEP40CA97 PO; +SENN-53 PO; -SENN1TAB40 PO
[2019-07-11 18:10] LABS: BASO # 0.1 10^3/uL (0.0-0.2); BASO % 0.7 % (0.0-1.0); EOS # 0.5 10^3/uL (0.0-0.5); EOS % 6.9 % (0.0-3.0); HEMATOCRIT 35.2 % (36.0-47.0); HEMOGLOBIN 10.8 g/dl (12.0-15.5); LYMPH % 30.1 % (24.0-44.0); MEAN CORPUSCULAR HEMOGLOBIN 26.5 pg (27.0-33.0); MEAN CORPUSCULAR HGB CONC 30.7 g/dl (32.0-36.5); MEAN CORPUSCULAR VOLUME 86.5 fl (80.0-96.0); MONO # 0.6 10^3/uL (0.0-0.8); MONO % 8.5 % (0.0-5.0); NEUTROPHILS # 3.6 10^3/uL (1.5-8.5); NEUTROPHILS % 53.4 % (36.0-66.0); PLATELET COUNT, AUTOMATED 254 10^3/uL (150-450); RED BLOOD COUNT 4.07 10^6/uL (4.00-5.40); WHITE BLOOD COUNT 6.7 10^3/uL (4.0-10.0)
[2019-07-11] MEDS ORDERED: NORCO, ANEXSIA 5/325MG TABLET (HYDROcodone/ACETAMINOPHEN) PO ONE (18:30)
[2019-07-11 18:48] LABS: BLOOD UREA NITROGEN 17 MG/DL (7-18); C REACTIVE PROTEIN QUANTITATIV 0.71 MG/DL (0.00-0.30); CALCIUM LEVEL 8.8 MG/DL (8.8-10.2); CARBON DIOXIDE LEVEL 28 MEQ/L (21-32); CHLORIDE LEVEL 103 MEQ/L (98-107); CREATININE FOR GFR 0.86 MG/DL (0.55-1.30); GLOMERULAR FILTRATION RATE > 60.0 (>45); GLUCOSE, FASTING 114 MG/DL (70-100); POTASSIUM SERUM 5.3 MEQ/L (3.5-5.1); SODIUM LEVEL 137 MEQ/L (136-145)
--- NOTE | 2019-07-11 19:29 | REP ---
HISTORY: Pain. No trauma. Degenerative changes seen involving the hip and knee. There is no fracture or destructive osseous lesion. Electronically Signed by Simeon Haney DO 07/11/2019 07:54 P
--- NOTE | 2019-07-11 19:31 | REP ---
HISTORY: Pain. COMPARISON: 02/01/2019. There is no significant change from the prior exam. There is tricompartmental marginal osteophytosis and there is tricompartmental narrowing, however, today's exam is limited by the lack of proper obliques, lateral view and sunrise view. The technologist has placed in the Oxxy power jacket, that the images obtained were the best obtainable. Electronically Signed by Simeon Haney DO 07/11/2019 07:54 P
--- NOTE | 2019-07-11 19:35 | REPVR ---
PROCEDURE INFORMATION: Exam: US Duplex Lower Extremity Veins Exam date and time: 07/11/2019 6:59 PM Clinical history: 58 years old, female; Pain; Leg, lower; Bilateral; Additional info: Left leg swelling > right swelling TECHNIQUE: Imaging protocol: Real-time duplex ultrasound of the Lower Extremities with 2-D weller scale, color Doppler flow and spectral waveform analysis with image documentation. Complete exam focused on the bilateral lower extremity veins. COMPARISON: US Duplex, Ext LOWER veins, bilat 04/28/2019 10:18 AM FINDINGS: Right deep veins: Unremarkable. The common femoral, femoral, proximal profunda femoral and popliteal veins are patent without thrombus. Normal Doppler waveforms. Normal compressibility and/or augmentation response. Right superficial veins: Saphenofemoral junction is patent without thrombus. Left deep veins: Unremarkable. The common femoral, femoral, proximal profunda femoral and popliteal veins are patent without thrombus. Normal Doppler waveforms. Normal compressibility and/or augmentation response. Left superficial veins: Saphenofemoral junction is patent without thrombus. Soft tissues: Unremarkable. IMPRESSION: No DVT of the bilateral lower extremity veins. Electronically signed by: Sid Magallanes On 07/11/2019 19:34:51 PM
--- NOTE | 2019-07-11 19:46 | REP ---
HISTORY: Pain. No history of trauma. COMPARISON: None. There is no evidence of an acute fracture. Electronically Signed by Simeon Haney DO 07/11/2019 07:54 P
[2019-07-11 20:33] VITALS: BP 179/93
== END 2019-07-11 20:43 | disposition home or self-care (01) ==
LOC: M ED 17:02 → EDBD 17:02 → M ED 20:43
DX: M16.12 Unilateral primary osteoarthritis, left hip (principal); M17.12 Unilateral primary osteoarthritis, left knee; M25.762 Osteophyte, left knee; I50.9 Heart failure, unspecified; K21.9 Gastro-esophageal reflux disease without esophagitis; N39.0 Urinary tract infection, site not specified; E78.5 Hyperlipidemia, unspecified; I11.0 Hypertensive heart disease with heart failure; R42 Dizziness and giddiness; F41.9 Anxiety disorder, unspecified; Z88.8 Allergy status to other drugs, medicaments and biological substances; Z91.02 Food additives allergy status; Z91.013 Allergy to seafood; Z79.899 Other long term (current) drug therapy; Z79.51 Long term (current) use of inhaled steroids

== ENCOUNTER 2019-07-13 10:08 | Outpatient (RCR) | payer OTHER | END 2019-07-20 | LOC: M PT 10:08 | PROVIDERS: ATTEND Physician Assistant Medical | DX: R53.81 Other malaise (principal) ==

== ENCOUNTER → 2019-07-21 | Outpatient (REF) | payer OTHER ==
[2019-07-21 12:14] LABS: FREE T4 1.05 NG/DL (0.76-1.46); THYROID STIMULATING HORMONE 20.5 uIU/ML (0.358-3.740)
[2019-07-21 12:51] LABS: HEMOGLOBIN A1c 9.5 %
== END ==
LOC: M SFHCPLAZ 10:03
PROVIDERS: ATTEND Physician Assistant Medical
DX: I50.9 Heart failure, unspecified (principal); E03.9 Hypothyroidism, unspecified; E11.9 Type 2 diabetes mellitus without complications

== ENCOUNTER 2019-07-27 13:01 | Observation (INO) | payer OTHER ==
[~2019-07-27] VITALS: Ht 154.9 cm; Wt 118.2 kg
[2019-07-27] MEDS ORDERED: TIZA2TA (13:18)
[2019-07-27] MEDS ORDERED: NYAM10003 (13:18)
[2019-07-27] MEDS ORDERED: METF-791 (13:18)
[2019-07-27] MEDS ORDERED: BUSP10TA (13:18)
[2019-07-27] MEDS ORDERED: MELO7.5T35 (13:18)
[2019-07-27 14:09] LABS: HEMATOCRIT 33.1 % (36.0-47.0); HEMOGLOBIN 10.2 g/dl (12.0-15.5); MEAN CORPUSCULAR HEMOGLOBIN 26.3 pg (27.0-33.0); MEAN CORPUSCULAR HGB CONC 30.8 g/dl (32.0-36.5); MEAN CORPUSCULAR VOLUME 85.3 fl (80.0-96.0); PLATELET COUNT, AUTOMATED 244 10^3/uL (150-450); RED BLOOD COUNT 3.88 10^6/uL (4.00-5.40); WHITE BLOOD COUNT 6.5 10^3/uL (4.0-10.0)
[2019-07-27 14:25] LABS: ACETAMINOPHEN LEVEL < 2.0 UG/ML (10.0-30.0); ALBUMIN 3.3 GM/DL (3.2-5.2); ALT/SGPT 14 U/L (12-78); BILIRUBIN,DIRECT < 0.1 MG/DL (0.0-0.2); BILIRUBIN,TOTAL 0.3 MG/DL (0.2-1.0); BLOOD UREA NITROGEN 18 MG/DL (7-18); CALCIUM LEVEL 8.7 MG/DL (8.8-10.2); CARBON DIOXIDE LEVEL 29 MEQ/L (21-32); CHLORIDE LEVEL 102 MEQ/L (98-107); CREATININE FOR GFR 1.06 MG/DL (0.55-1.30); ETHYL ALCOHOL (ETHANOL) < 0.003 % (0.000-0.010); GLOMERULAR FILTRATION RATE 56.3 (>45); GLUCOSE, FASTING 286 MG/DL (70-100); POTASSIUM SERUM 4.1 MEQ/L (3.5-5.1); SALICYLATE LEVEL < 1.7 MG/DL (5.0-30.0); SODIUM LEVEL 136 MEQ/L (136-145); TOTAL PROTEIN 7.5 GM/DL (6.4-8.2)
[2019-07-27 14:28] LABS: AMPHETAMINES LEVEL URINE NEGATIVE (NEGATIVE); BARBITURATES URINE NEGATIVE (NEGATIVE); BENZODIAZEPINES URINE NEGATIVE (NEGATIVE); CANNABINOIDS URINE NEGATIVE (NEGATIVE); COCAINE METABOLITE URINE NEGATIVE (NEGATIVE); METHADONE URINE NEGATIVE (NEGATIVE); OPIATES URINE NEGATIVE (NEGATIVE); PHENCYCLIDINE URINE NEGATIVE (NEGATIVE)
[2019-07-27] MEDS ORDERED: TIZA2TA PO (16:39)
[2019-07-27] MEDS ORDERED: TRAZ1TAB14 PO (16:39)
[2019-07-27] MEDS ORDERED: HYDR-643 PO (16:39)
[2019-07-27] MEDS ORDERED: TEMA15CA2 PO (16:39)
[2019-07-27] MEDS ORDERED: PIOG1TAB36 PO (16:39)
[2019-07-27] MEDS ORDERED: ACET500T15 PO (16:39)
[2019-07-27] MEDS ORDERED: HYDR50TA70 PO (16:39)
[2019-07-27] MEDS ORDERED: AMMO12CR7 TOP (16:39)
[2019-07-27] MEDS ORDERED: ACET650T15 PO (16:39)
[2019-07-27] MEDS ORDERED: LOSA50TA88 PO (16:39)
[2019-07-27] MEDS ORDERED: ASPI81TA85 PO (16:39)
[2019-07-27] MEDS ORDERED: MOBI4TAB PO (16:39)
[2019-07-27] MEDS ORDERED: LEVO2TA PO (16:39)
[2019-07-27] MEDS ORDERED: DULO1CAP6 PO (16:39)
[2019-07-27] MEDS ORDERED: DULO1CAP5 PO (16:39)
[2019-07-27] MEDS ORDERED: BASA100I SC (16:39)
[2019-07-27] MEDS ORDERED: OMEP-221 PO (16:39)
[2019-07-27] MEDS ORDERED: FURO20TA2 PO (16:39)
[2019-07-27] MEDS ORDERED: NYST1POW9 TOP (16:39)
[2019-07-27] MEDS ORDERED: BUSP10TA PO (16:39)
[2019-07-27] MEDS ORDERED: GLIM2TAB2 PO (16:39)
[2019-07-27] MEDS ORDERED: VALP1CAP2 PO (16:39)
[2019-07-27] MEDS ORDERED: VOLT1GEL15 TOP (16:39)
[2019-07-27] MEDS ORDERED: SYST1SOL OU (16:39)
[2019-07-27] MEDS ORDERED: traZODone 50 MG TAB PO PRN ×2 (17:30→22:45)
[2019-07-27] MEDS ORDERED: MOM 30ML SUSPENSION UDC PO PRN (17:30)
[2019-07-27] MEDS ORDERED: MAALOX 30 ML SUSP *UDC PO PRN (17:30)
[2019-07-27] MEDS ORDERED: ACETAMINOPHEN TAB 650MG DOSE (2X325MG) PO PRN (17:30)
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
[2019-07-27] MEDS ORDERED: GLUCAGON FOR INJ 1 MG VIAL (J1610) SC PRN (20:15)
[2019-07-27] MEDS ORDERED: DEXTROSE 50% 50 ML SYRINGE IV PRN (20:15)
[2019-07-27] MEDS ORDERED: GLUCOSE 4 GM CHEW TABLET PO PRN (20:15)
[2019-07-27 20:41] LABS: HEMOGLOBIN A1c 9.3 %
[2019-07-27] MEDS ORDERED: LIDOCAINE 5% (LIDODERM) PATCH TD SCH (21:00)
[2019-07-27] MEDS ORDERED: HumaLOG INSULIN (NovoLOG) PER UNIT SC SCH (21:00)
[2019-07-27] MEDS ORDERED: POLYVINYL ALCOHOL OPHTH SOLN 15 ML(LIQUITEARS) OU PRN (22:45)
[2019-07-27] MEDS ORDERED: LEVEMIR (INSULIN DETEMIR) 1 UNITS/0.01ML SC SCH (22:45)
[2019-07-27] MEDS ORDERED: TEMAZEPAM 15 MG CAP PO PRN (22:45)
[2019-07-27] MEDS ORDERED: hydrOXYzine 50 MG TAB PO SCH (22:45)
[2019-07-27] MEDS ORDERED: PILL CUTTER 1 EACH XX PRN (23:15)
[2019-07-27] MEDS: OMEPRAZOLE 20 MG CAP PO SCH (23:21)
[2019-07-27] MEDS: MELOXICAM (MOBIC) 7.5 MG TAB PO SCH (23:22)
[2019-07-27] MEDS: busPIRone 10 MG TAB PO SCH (23:22)
[2019-07-27] MEDS: VALPROIC ACID 250 MG CAP PO SCH (23:22)
[2019-07-28 00:13] VITALS: BP 154/88
[2019-07-28] MEDS: tiZANidine 4 MG TAB PO PRN ×2 (03:49→16:41)
[2019-07-28 06:00] VITALS: BP 152/88
[2019-07-28] MEDS ORDERED: LEVOTHYROXINE 100MCG TABLET (0.1MG) PO SCH (06:00)
[2019-07-28] MEDS ORDERED: HumaLOG INSULIN (NovoLOG) PER UNIT SC ONE (06:00)
[2019-07-28 06:15] LABS: HEMATOCRIT 31.2 % (36.0-47.0); HEMOGLOBIN 9.6 g/dl (12.0-15.5); MEAN CORPUSCULAR HEMOGLOBIN 26.3 pg (27.0-33.0); MEAN CORPUSCULAR HGB CONC 30.8 g/dl (32.0-36.5); MEAN CORPUSCULAR VOLUME 85.5 fl (80.0-96.0); PLATELET COUNT, AUTOMATED 223 10^3/uL (150-450); RED BLOOD COUNT 3.65 10^6/uL (4.00-5.40); WHITE BLOOD COUNT 7.1 10^3/uL (4.0-10.0)
[2019-07-28 06:40] LABS: BLOOD UREA NITROGEN 18 MG/DL (7-18); CALCIUM LEVEL 8.8 MG/DL (8.8-10.2); CARBON DIOXIDE LEVEL 28 MEQ/L (21-32); CHLORIDE LEVEL 106 MEQ/L (98-107); CREATININE FOR GFR 0.96 MG/DL (0.55-1.30); GLOMERULAR FILTRATION RATE > 60.0 (>45); GLUCOSE, FASTING 200 MG/DL (70-100); POTASSIUM SERUM 3.9 MEQ/L (3.5-5.1); SODIUM LEVEL 139 MEQ/L (136-145)
[2019-07-28] MEDS: HumaLOG INSULIN (NovoLOG) PER UNIT SC SCH ×2 (07:30→13:22)
[2019-07-28] MEDS: OMEPRAZOLE 20 MG CAP PO SCH (08:39)
[2019-07-28] MEDS: hydrOXYzine 10 MG TAB PO SCH ×2 (08:39→16:41)
[2019-07-28 08:40] VITALS: BP 135/74
[2019-07-28] MEDS: VALPROIC ACID 250 MG CAP PO SCH ×2 (08:41→16:41)
[2019-07-28] MEDS: MELOXICAM (MOBIC) 7.5 MG TAB PO SCH (08:41)
[2019-07-28] MEDS: busPIRone 10 MG TAB PO SCH (08:41)
[2019-07-28] MEDS ORDERED: **NOTE PATIENT COMMENT** MISC XX SCH (09:00)
[2019-07-28] MEDS ORDERED: DULoxetine 30 MG CAP (CYMBALTA) PO SCH ×2 (09:00)
[2019-07-28] MEDS ORDERED: ASPIRIN 81 MG ENTERIC TAB PO SCH (09:00)
[2019-07-28] MEDS ORDERED: LOSARTAN 50 MG TAB PO SCH (09:00)
[2019-07-28] MEDS ORDERED: FUROSEMIDE 20 MG TAB PO SCH (09:00)
[2019-07-28] MEDS ORDERED: NYSTATIN 100,000 UNITS/GM TOPICAL PWD 15 GM TOP SCH (09:00)
[2019-07-28] MEDS ORDERED: ACETAMINOPHEN 650MG ER TAB (TYLENOL ARTHRITIS) PO SCH (09:00)
[2019-07-28 14:00] VITALS: BP 142/75
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
== END 2019-07-28 17:16 ==
LOC: M ED 13:01 → INTOOBSV 17:21 → M ED INP 17:21 → M MSPAV 07-28 00:13
PROVIDERS: ADMIT Psychiatry & Neurology Psychiatry; ATTEND Family Medicine
DX: F32.2 Major depressive disorder, single episode, severe without psychotic features (principal); R45.851 Suicidal ideations; E11.65 Type 2 diabetes mellitus with hyperglycemia; E03.9 Hypothyroidism, unspecified; I50.9 Heart failure, unspecified; E66.01 Morbid (severe) obesity due to excess calories; I11.0 Hypertensive heart disease with heart failure; G40.909 Epilepsy, unspecified, not intractable, without status epilepticus; R05 Cough; M54.5 Low back pain; M25.562 Pain in left knee; D64.9 Anemia, unspecified; K59.09 Other constipation; Z79.899 Other long term (current) drug therapy; Z79.82 Long term (current) use of aspirin; Z79.4 Long term (current) use of insulin; Z91.013 Allergy to seafood; Z88.8 Allergy status to other drugs, medicaments and biological substances; Z91.018 Allergy to other foods; Z88.6 Allergy status to analgesic agent; Z91.14 Patient's other noncompliance with medication regimen
CPT/HCPCS: 36415; 80048; 80076; 80307; 83036; 84443; 85027; 97140; 97161; 99285; G0480

== ENCOUNTER 2019-07-28 16:00 | Inpatient (IN) | payer MEDICAID, OTHER ==
[~2019-07-28] VITALS: Ht 154.9 cm; Wt 130.0 kg
[~2019-07-28 16:00] MED LIST changes: +ACET500T15 PO; +ACET650T15 PO; +AMMO12CR7 TOP; +ASPI81TA85 PO; +BASA100I SC; +BUSP10TA; +BUSP10TA PO; +FURO20TA2 PO; +GLIM2TAB2 PO; +HYDR-643 PO; +HYDR50TA70 PO; +LEVO2TA PO; +MELO7.5T35; +METF-791; +MOBI4TAB PO; +NYAM10003; +NYST1POW9 TOP; +OMEP-221 PO; +PIOG1TAB36 PO; +SYST1SOL OU; +TIZA2TA; +TIZA2TA PO; +VALP1CAP2 PO; +VOLT1GEL15 TOP
[2019-07-28] MEDS ORDERED: TEMAZEPAM 15 MG CAP PO PRN (16:45)
[2019-07-28] MEDS ORDERED: POLYVINYL ALCOHOL OPHTH SOLN 15 ML(LIQUITEARS) OU PRN (16:45)
[2019-07-28] MEDS ORDERED: GLUCAGON FOR INJ 1 MG VIAL (J1610) SC PRN (17:00)
[2019-07-28] MEDS ORDERED: DEXTROSE 50% 50 ML SYRINGE IV PRN (17:00)
[2019-07-28] MEDS ORDERED: GLUCOSE 4 GM CHEW TABLET PO PRN (17:00)
[2019-07-28 18:11] VITALS: BP 142/86
[2019-07-28] MEDS: HumaLOG INSULIN (NovoLOG) PER UNIT SC SCH ×2 (18:45→20:36)
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
[2019-07-28] MEDS: LEVEMIR (INSULIN DETEMIR) 1 UNITS/0.01ML SC SCH (20:30)
[2019-07-28] MEDS: hydrOXYzine 50 MG TAB PO SCH (20:32)
[2019-07-28] MEDS: busPIRone 10 MG TAB PO SCH (20:32)
[2019-07-28] MEDS: MELOXICAM (MOBIC) 7.5 MG TAB PO SCH (20:32)
[2019-07-28] MEDS: ACETAMINOPHEN 650MG ER TAB (TYLENOL ARTHRITIS) PO SCH (20:32)
[2019-07-28] MEDS: traZODone 50 MG TAB PO PRN (20:32)
[2019-07-28] MEDS: NYSTATIN 100,000 UNITS/GM TOPICAL PWD 15 GM TOP SCH (20:32)
[2019-07-28] MEDS ORDERED: GLIMEPIRIDE 2 MG TAB PO SCH (21:00)
[2019-07-29] MEDS: LEVOTHYROXINE 100MCG TABLET (0.1MG) PO SCH (04:36)
[2019-07-29] MEDS: tiZANidine 4 MG TAB PO PRN ×2 (04:36→16:03)
[2019-07-29] MEDS: HumaLOG INSULIN (NovoLOG) PER UNIT SC SCH ×4 (06:36→21:00)
[2019-07-29 07:34] VITALS: BP 133/70
[2019-07-29] MEDS ORDERED: DULoxetine 30 MG CAP (CYMBALTA) PO SCH (09:00)
[2019-07-29] MEDS: NYSTATIN 100,000 UNITS/GM TOPICAL PWD 15 GM TOP SCH ×2 (09:04→20:56)
[2019-07-29] MEDS: VALPROIC ACID 250 MG CAP PO SCH ×2 (09:04→17:09)
[2019-07-29] MEDS: MELOXICAM (MOBIC) 7.5 MG TAB PO SCH ×2 (09:04→20:55)
[2019-07-29] MEDS: hydrOXYzine 10 MG TAB PO SCH ×2 (09:05→14:03)
[2019-07-29] MEDS: ASPIRIN 81 MG ENTERIC TAB PO SCH (09:05)
[2019-07-29] MEDS: DULoxetine 30 MG CAP (CYMBALTA) PO SCH (09:05)
[2019-07-29] MEDS: FUROSEMIDE 40 MG TAB PO SCH (09:05)
[2019-07-29] MEDS: busPIRone 10 MG TAB PO SCH ×2 (09:05→20:55)
[2019-07-29] MEDS: ACETAMINOPHEN 650MG ER TAB (TYLENOL ARTHRITIS) PO SCH ×2 (09:05→20:55)
[2019-07-29] MEDS: LOSARTAN 50 MG TAB PO SCH (09:26)
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
[2019-07-29 18:00] VITALS: BP 138/75
[2019-07-29] MEDS: hydrOXYzine 50 MG TAB PO SCH (20:55)
[2019-07-29] MEDS: LEVEMIR (INSULIN DETEMIR) 1 UNITS/0.01ML SC SCH (20:56)
[2019-07-29] MEDS: traZODone 50 MG TAB PO PRN (21:01)
[2019-07-30] MEDS: tiZANidine 4 MG TAB PO PRN ×3 (04:18→17:16)
[2019-07-30] MEDS: LEVOTHYROXINE 100MCG TABLET (0.1MG) PO SCH (06:07)
[2019-07-30 06:28] VITALS: BP 130/71
[2019-07-30] MEDS: HumaLOG INSULIN (NovoLOG) PER UNIT SC SCH ×4 (06:59→20:57)
[2019-07-30] MEDS: VALPROIC ACID 250 MG CAP PO SCH ×2 (08:21→17:09)
[2019-07-30] MEDS: ASPIRIN 81 MG ENTERIC TAB PO SCH (08:21)
[2019-07-30] MEDS: LIDOCAINE 5% (LIDODERM) PATCH TD SCH ×2 (08:21→15:43)
[2019-07-30] MEDS: FUROSEMIDE 40 MG TAB PO SCH (08:21)
[2019-07-30] MEDS: busPIRone 10 MG TAB PO SCH ×2 (08:23→20:49)
[2019-07-30] MEDS: LOSARTAN 50 MG TAB PO SCH (08:23)
[2019-07-30] MEDS: ACETAMINOPHEN 650MG ER TAB (TYLENOL ARTHRITIS) PO SCH ×2 (08:24→20:50)
[2019-07-30] MEDS: DULoxetine 30 MG CAP (CYMBALTA) PO SCH (08:24)
[2019-07-30] MEDS: MELOXICAM (MOBIC) 7.5 MG TAB PO SCH ×2 (08:24→20:49)
[2019-07-30] MEDS: hydrOXYzine 10 MG TAB PO SCH ×2 (08:24→15:35)
[2019-07-30] MEDS: NYSTATIN 100,000 UNITS/GM TOPICAL PWD 15 GM TOP SCH ×2 (08:48→20:51)
[2019-07-30] MEDS ORDERED: FLUBLOK(EGG FREE)(QUAD)INFLUENZA VACC 0.5ML SYRINGE (90682)18YRS&OLDER IM ONE (09:00)
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
[2019-07-30] MEDS ORDERED: ANALGESIC BALM CRM 120 GM TOP ONE (14:15)
[2019-07-30 15:25] VITALS: BP 133/75
[2019-07-30] MEDS ORDERED: ANALGESIC BALM CRM 120 GM TOP PRN (18:30)
[2019-07-30] MEDS: hydrOXYzine 50 MG TAB PO SCH (20:49)
[2019-07-30] MEDS: LEVEMIR (INSULIN DETEMIR) 1 UNITS/0.01ML SC SCH (20:56)
[2019-07-30] MEDS: traZODone 50 MG TAB PO PRN (20:58)
[2019-07-30] MEDS ORDERED: **NOTE PATIENT COMMENT** MISC XX SCH ×2 (21:00)
[2019-07-31] MEDS: LEVOTHYROXINE 100MCG TABLET (0.1MG) PO SCH (05:49)
[2019-07-31] MEDS: HumaLOG INSULIN (NovoLOG) PER UNIT SC SCH (06:32)
[2019-07-31 06:37] VITALS: BP 132/77
[2019-07-31 09:11] VITALS: BP 151/70
[2019-07-31] MEDS: ASPIRIN 81 MG ENTERIC TAB PO SCH (09:11)
[2019-07-31] MEDS: busPIRone 10 MG TAB PO SCH (09:11)
[2019-07-31] MEDS: ACETAMINOPHEN 650MG ER TAB (TYLENOL ARTHRITIS) PO SCH (09:11)
[2019-07-31] MEDS: MELOXICAM (MOBIC) 7.5 MG TAB PO SCH (09:11)
[2019-07-31] MEDS: DULoxetine 30 MG CAP (CYMBALTA) PO SCH (09:11)
[2019-07-31] MEDS: hydrOXYzine 10 MG TAB PO SCH (09:11)
[2019-07-31] MEDS: FUROSEMIDE 40 MG TAB PO SCH (09:11)
[2019-07-31] MEDS: LOSARTAN 50 MG TAB PO SCH (09:11)
[2019-07-31] MEDS: NYSTATIN 100,000 UNITS/GM TOPICAL PWD 15 GM TOP SCH (09:12)
[2019-07-31] MEDS: VALPROIC ACID 250 MG CAP PO SCH (09:12)
[2019-07-31] MEDS: LIDOCAINE 5% (LIDODERM) PATCH TD SCH ×2 (09:15→09:16)
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
[2019-07-31] MEDS ORDERED: LIDO5TD TD (10:27)
== END 2019-07-31 12:00 | disposition home or self-care (01) | DRG 754 ==
LOC: M PSY 17:18
PROVIDERS: ADMIT Psychiatry & Neurology Addiction Medicine; ATTEND Psychiatry & Neurology Addiction Medicine
DX: F32.9 Major depressive disorder, single episode, unspecified (principal); F43.20 Adjustment disorder, unspecified; Z62.811 Personal history of psychological abuse in childhood; Z63.5 Disruption of family by separation and divorce; F45.1 Undifferentiated somatoform disorder; Z79.82 Long term (current) use of aspirin; Z79.4 Long term (current) use of insulin; Z79.899 Other long term (current) drug therapy; Z88.8 Allergy status to other drugs, medicaments and biological substances; Z91.013 Allergy to seafood; M54.30 Sciatica, unspecified side; M79.606 Pain in leg, unspecified

== ENCOUNTER 2019-08-14 14:09 | Outpatient (RCR) | payer OTHER ==
[~2019-08-14 14:09] MED LIST changes: +LIDO5TD TD
== END 2019-08-19 ==
LOC: M PT 14:09
PROVIDERS: ATTEND Physician Assistant Medical
DX: Z51.89 Encounter for other specified aftercare (principal); R53.81 Other malaise

== ENCOUNTER 2019-08-31 08:42 | Emergency (ER) | payer OTHER ==
[~2019-08-31] VITALS: Ht 154.9 cm; Wt 122.7 kg
[2019-08-31] MEDS ORDERED: IPRATROPIUM 0.5MG/ALBUTEROL 2.5MG INH SOL UD 3ML (DUONEB)(J7620) NEB ONE (09:30)
--- NOTE | 2019-08-31 09:41 | REP ---
Single view chest: 08/31/2019. Indication: Dyspnea. Comparison: 06/08/2019. Findings: No air space consolidation is present. There is no pleural effusion or pneumothorax. The cardiomediastinal silhouette is unremarkable. Impression: No acute cardiopulmonary process. Electronically Signed by Domingo Walton DO 08/31/2019 09:32 A
[2019-08-31 10:34] LABS: BASO # 0.1 10^3/uL (0.0-0.2); BASO % 0.6 % (0.0-1.0); EOS # 0.5 10^3/uL (0.0-0.5); EOS % 5.8 % (0.0-3.0); HEMATOCRIT 36.6 % (36.0-47.0); HEMOGLOBIN 11.2 g/dl (12.0-15.5); LYMPH % 22.8 % (24.0-44.0); MEAN CORPUSCULAR HEMOGLOBIN 26.4 pg (27.0-33.0); MEAN CORPUSCULAR HGB CONC 30.6 g/dl (32.0-36.5); MEAN CORPUSCULAR VOLUME 86.3 fl (80.0-96.0); MONO % 10.9 % (0.0-5.0); NEUTROPHILS # 5.2 10^3/uL (1.5-8.5); NEUTROPHILS % 59.4 % (36.0-66.0); PLATELET COUNT, AUTOMATED 284 10^3/uL (150-450); RED BLOOD COUNT 4.24 10^6/uL (4.00-5.40); WHITE BLOOD COUNT 8.8 10^3/uL (4.0-10.0)
[2019-08-31 10:56] LABS: CK-MB VALUE MASS 1.1 NG/ML (<3.6); CPK CREATINE PHOSPHOKINASE 50 U/L (26-192); TROPONIN I < 0.02 NG/ML (< 0.10)
[2019-08-31 11:03] LABS: CALCIUM LEVEL 9.1 MG/DL (8.8-10.2); CREATININE FOR GFR 1.41 MG/DL (0.55-1.30); GLOMERULAR FILTRATION RATE 40.5 (>45); POTASSIUM SERUM 3.4 MEQ/L (3.5-5.1)
[2019-08-31] MEDS ORDERED: AMOX500T PO ×2 (13:18→13:45)
[2019-08-31 13:46] VITALS: BP 130/78
--- NOTE | 2019-08-31 22:05 | ECGEPIP ---
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
== END 2019-08-31 14:05 | disposition home or self-care (01) ==
LOC: M ED 08:42 → EDBD 08:42 → M ED 14:05
DX: J20.9 Acute bronchitis, unspecified (principal); E11.9 Type 2 diabetes mellitus without complications; E03.9 Hypothyroidism, unspecified; I10 Essential (primary) hypertension; D64.9 Anemia, unspecified; F32.9 Major depressive disorder, single episode, unspecified; I89.0 Lymphedema, not elsewhere classified; R94.31 Abnormal electrocardiogram [ECG] [EKG]; Z88.6 Allergy status to analgesic agent; Z88.8 Allergy status to other drugs, medicaments and biological substances; Z91.013 Allergy to seafood; Z91.02 Food additives allergy status

== ENCOUNTER → 2019-10-18 | Outpatient (CLI) | payer OTHER ==
[~2019-10-18] MED LIST changes: +AMOX500T PO; -GLIM2TAB2 PO; +GLIM2TAB4 PO; +ONDA-83 PO; -ONDA4TAB5 PO; -TRAZ-163 PO; +TRAZ-257 PO
[2019-10-18 13:26] LABS: ALBUMIN 3.3 GM/DL (3.2-5.2); BILIRUBIN,TOTAL 0.4 MG/DL (0.2-1.0); CALCIUM LEVEL 9.6 MG/DL (8.8-10.2); CREATININE FOR GFR 1.47 MG/DL (0.55-1.30); GLOMERULAR FILTRATION RATE 38.6 (>45); POTASSIUM SERUM 3.6 MEQ/L (3.5-5.1); TOTAL PROTEIN 7.7 GM/DL (6.4-8.2)
[2019-10-18 13:30] LABS: HEMOGLOBIN A1c 11.2 %
== END ==
LOC: M PLALAB 10:39
PROVIDERS: ATTEND Physician Assistant Medical
DX: E11.9 Type 2 diabetes mellitus without complications (principal); I50.9 Heart failure, unspecified

== ENCOUNTER → 2020-01-17 | Outpatient (CLI) | payer OTHER ==
--- NOTE | 2020-01-18 02:32 | REPPI ---
Clinical: Left-sided sciatica. Technique: AP, lateral, bilateral oblique views of the lumbosacral spine. Findings: Alignment and lordosis maintained. Age-related osteopenia and moderate multilevel degenerative changes include endplate sclerosis, early marginal spurring/osteophyte formation, and hypertrophic facet changes. Associated disc space narrowing and L3-4 through L5-S1 is suggested. No acute fracture / compression injury or subluxation identified. Impression: Osteopenia and moderate multilevel degenerative spondylosis. Electronically Signed by Petey Walker MD 01/18/2020 02:23 A
== END ==
LOC: M PLAIMG 14:55
PROVIDERS: ATTEND Physician Assistant Medical
DX: M54.32 Sciatica, left side (principal); M85.88 Other specified disorders of bone density and structure, other site; M51.36 Other intervertebral disc degeneration, lumbar region

== ENCOUNTER → 2020-01-17 | Outpatient (REF) | payer OTHER ==
[2020-01-17 17:28] LABS: HEMOGLOBIN A1c 10.6 %
[2020-01-17 17:32] LABS: ALBUMIN 3.5 GM/DL (3.2-5.2); ALT/SGPT 17 U/L (12-78); BILIRUBIN,TOTAL 0.2 MG/DL (0.2-1.0); BLOOD UREA NITROGEN 18 MG/DL (7-18); CALCIUM LEVEL 9.4 MG/DL (8.8-10.2); CARBON DIOXIDE LEVEL 29 MEQ/L (21-32); CHLORIDE LEVEL 98 MEQ/L (98-107); CREATININE FOR GFR 0.95 MG/DL (0.55-1.30); GLOMERULAR FILTRATION RATE > 60.0 (>45); GLUCOSE, FASTING 407 MG/DL (70-100); NT-PRO BNP 183 PG/ML (<125); SODIUM LEVEL 133 MEQ/L (136-145); TOTAL PROTEIN 8.2 GM/DL (6.4-8.2)
== END ==
LOC: M SFHCPLAZ 14:54
PROVIDERS: ATTEND Physician Assistant Medical
DX: I50.9 Heart failure, unspecified (principal); E11.9 Type 2 diabetes mellitus without complications

== ENCOUNTER → 2020-02-15 | Outpatient (REF) | payer OTHER ==
[~2020-02-15] MED LIST changes: -METF-791; +METF-838
[2020-02-15 18:23] LABS: BASO # 0.1 10^3/uL (0.0-0.2); BASO % 0.7 % (0.0-1.0); EOS # 0.2 10^3/uL (0.0-0.5); EOS % 2.7 % (0.0-3.0); HEMATOCRIT 37.9 % (36.0-47.0); HEMOGLOBIN 11.2 g/dl (12.0-15.5); LYMPH # 1.9 10^3/uL (1.5-5.0); LYMPH % 21.4 % (24.0-44.0); MEAN CORPUSCULAR HEMOGLOBIN 25.4 pg (27.0-33.0); MEAN CORPUSCULAR HGB CONC 29.6 g/dl (32.0-36.5); MEAN CORPUSCULAR VOLUME 85.9 fl (80.0-96.0); MONO # 0.9 10^3/uL (0.0-0.8); MONO % 9.9 % (0.0-5.0); NEUTROPHILS # 5.8 10^3/uL (1.5-8.5); NEUTROPHILS % 64.3 % (36.0-66.0); PLATELET COUNT, AUTOMATED 449 10^3/uL (150-450); RED BLOOD COUNT 4.41 10^6/uL (4.00-5.40)
[2020-02-15 19:03] LABS: ALBUMIN 3.4 GM/DL (3.2-5.2); BILIRUBIN,TOTAL 0.3 MG/DL (0.2-1.0); C REACTIVE PROTEIN QUANTITATIV 0.3 MG/DL (0.00-0.30); CALCIUM LEVEL 9.4 MG/DL (8.8-10.2); CREATININE FOR GFR 1.2 MG/DL (0.55-1.30); GLOMERULAR FILTRATION RATE 48.6 (>45); POTASSIUM SERUM 5.3 MEQ/L (3.5-5.1); TOTAL PROTEIN 8.4 GM/DL (6.4-8.2)
[2020-02-15 19:39] LABS: ERYTHROCYTE SEDIMENTATION RATE 54 mm/hr (0-30)
== END ==
LOC: M SFHCPLAZ 14:37
PROVIDERS: ATTEND Physician Assistant Medical
DX: J01.10 Acute frontal sinusitis, unspecified (principal); I50.9 Heart failure, unspecified

== ENCOUNTER 2020-03-14 17:35 | Emergency (ER) | payer OTHER ==
--- NOTE | 2020-03-14 18:38 | REP ---
Oral chest x-ray: Sitting AP view. History: Chest pain. Comparison chest x-ray: August 31, 2019. Findings: Monitoring electrodes overlie the chest. Lungs are well inflated and clear. The pleural angles are sharp. Right hemidiaphragm is slightly elevated unchanged. Heart is not felt to be enlarged. Impression: No acute disease. Electronically Signed by Ralph Mckeon MD 03/14/2020 06:30 P
[2020-03-14 19:01] VITALS: BP 129/75
== END 2020-03-14 19:03 | disposition home or self-care (01) ==
LOC: EDBD 17:35 → M ED 17:35
DX: M94.0 Chondrocostal junction syndrome [Tietze] (principal); I51.9 Heart disease, unspecified; E11.9 Type 2 diabetes mellitus without complications; J45.909 Unspecified asthma, uncomplicated; Z79.4 Long term (current) use of insulin; Z79.82 Long term (current) use of aspirin; Z79.899 Other long term (current) drug therapy; Z88.8 Allergy status to other drugs, medicaments and biological substances; Z91.013 Allergy to seafood; Z91.018 Allergy to other foods

== ENCOUNTER 2020-03-15 14:01 | Outpatient (RCR) | payer OTHER ==
[~2020-03-15 14:01] MED LIST changes: -ASPI81TA85 PO; +ASPI81TA86 PO
== END 2020-03-19 ==
LOC: M PT 14:01
PROVIDERS: ATTEND Physician Assistant Medical
DX: I89.0 Lymphedema, not elsewhere classified (principal)

== ENCOUNTER 2020-04-02 23:45 | Emergency (ER) | payer OTHER ==
[~2020-04-02] VITALS: Ht 152.4 cm; Wt 102.7 kg
[~2020-04-02 23:45] MED LIST changes: +ASPI81TA85 PO; -ASPI81TA86 PO
--- NOTE | 2020-04-03 01:46 | REPVR ---
PROCEDURE INFORMATION: Exam: CT Thoracic Spine Without Contrast Exam date and time: 04/03/2020 1:02 AM Age: 59 years old Clinical indication: Injury or trauma; Fall; Initial encounter; Blunt trauma (contusions or hematomas); Additional info: Fall, pain TECHNIQUE: Imaging protocol: Computed tomography images of the thoracic spine without contrast. Radiation optimization: All CT scans at this facility use at least one of these dose optimization techniques: automated exposure control; mA and/or kV adjustment per patient size (includes targeted exams where dose is matched to clinical indication); or iterative reconstruction. COMPARISON: CR Spine, Thoracic 3 VIEWS 09/25/2014 9:36 AM FINDINGS: Vertebrae: Degenerative changes at the costovertebral joints throughout the thoracic spine. No acute fracture or malalignment.. Advanced discogenic degenerative changes throughout the thoracic spine. No spinal stenosis. No bone lesions. Posterior elements are intact. Soft tissues: Paraspinal soft tissues are unremarkable. IMPRESSION: 1. No fracture or malalignment. 2. Degenerative spondylosis as above. Electronically signed by: Alonso Armstrong On 04/03/2020 01:46:42 AM
--- NOTE | 2020-04-03 01:51 | REPVR ---
PROCEDURE INFORMATION: Exam: CT Lumbar Spine Without Contrast Exam date and time: 04/03/2020 1:02 AM Age: 59 years old Clinical indication: Injury or trauma; Fall; Initial encounter; Blunt trauma (contusions or hematomas); Additional info: Fall, pain TECHNIQUE: Imaging protocol: Computed tomography images of the lumbar spine without contrast. Radiation optimization: All CT scans at this facility use at least one of these dose optimization techniques: automated exposure control; mA and/or kV adjustment per patient size (includes targeted exams where dose is matched to clinical indication); or iterative reconstruction. COMPARISON: CR Spine. Lumbosacral, complete 06/14/2015 6:21 AM FINDINGS: Vertebrae: Normal alignment. No compression fractures. Mild discogenic degenerative changes. Advanced multilevel facet DJD. Mild spinal stenosis at L4-L5 and L5-S1. Severe foraminal stenosis at L4-L5 and L5-S1 on the left with milder foraminal stenoses on the right. Soft tissues: Unremarkable. IMPRESSION: 1. No fracture or malalignment. 2. Advanced degenerative spondylosis as above. Electronically signed by: Alonso Armstrong On 04/03/2020 01:51:03 AM
[2020-04-03] MEDS ORDERED: PERCOCET 5MG/325MG TAB PO ONE (02:30)
[2020-04-03 03:30] VITALS: BP 147/80
[2020-04-03] MEDS ORDERED: PERC5TAB12 PO (04:10)
[2020-04-03] MEDS ORDERED: OXYCODONE/APAP 5MG/325MG(BULK FOR ED) 1 TABLET PO ONE (04:15)
== END 2020-04-03 04:30 | disposition home or self-care (01) ==
LOC: M ED 23:45
DX: M54.5 Low back pain (principal); E11.9 Type 2 diabetes mellitus without complications; I10 Essential (primary) hypertension; I50.9 Heart failure, unspecified; E03.9 Hypothyroidism, unspecified; R56.9 Unspecified convulsions; Z79.899 Other long term (current) drug therapy; Z79.890 Hormone replacement therapy; Z79.82 Long term (current) use of aspirin; Z79.4 Long term (current) use of insulin; Z88.8 Allergy status to other drugs, medicaments and biological substances; Z91.018 Allergy to other foods

== ENCOUNTER 2020-04-17 13:30 | Outpatient (RCR) | payer OTHER ==
[~2020-04-17 13:30] MED LIST changes: -ASPI81TA85 PO; +ASPI81TA86 PO
== END 2020-04-19 ==
LOC: M PT 13:30
PROVIDERS: ATTEND Physician Assistant Medical
DX: I89.0 Lymphedema, not elsewhere classified (principal)

== ENCOUNTER 2020-04-23 12:45 | Outpatient (RCR) | payer OTHER | END 2020-05-20 | LOC: M PT 12:45 | PROVIDERS: ATTEND Physician Assistant Medical | DX: I89.0 Lymphedema, not elsewhere classified (principal) ==

== ENCOUNTER 2020-07-04 12:44 | Emergency (ER) | payer OTHER ==
[~2020-07-04] VITALS: Ht 154.9 cm; Wt 103.2 kg
[2020-07-04 13:20] LABS: VENOUS O2 SATURATION 97.4 % (60.0-80.0); VENOUS PARTIAL PRESSURE CO2 40.9 mmHg (38.0-50.0); VENOUS PARTIAL PRESSURE O2 107.8 mmHg (30.0-50.0); VENOUS PH 7.386 UNITS (7.330-7.430); VENOUS STANDARD HCO3 23.7 MEQ/L; VENOUS TOTAL CO2 25.2 MEQ/L (24.0-28.0)
[2020-07-04 13:39] LABS: BASO % 0.4 % (0.0-1.0); EOS # 0.3 10^3/uL (0.0-0.5); HEMATOCRIT 31.4 % (36.0-47.0); HEMOGLOBIN 9.2 g/dl (12.0-15.5); LYMPH # 1.5 10^3/uL (1.5-5.0); LYMPH % 20.1 % (24.0-44.0); MEAN CORPUSCULAR HEMOGLOBIN 22.4 pg (27.0-33.0); MEAN CORPUSCULAR HGB CONC 29.3 g/dl (32.0-36.5); MEAN CORPUSCULAR VOLUME 76.6 fl (80.0-96.0); MONO # 0.9 10^3/uL (0.0-0.8); MONO % 11.3 % (0.0-5.0); NEUTROPHILS # 4.9 10^3/uL (1.5-8.5); NEUTROPHILS % 63.3 % (36.0-66.0); WHITE BLOOD COUNT 7.7 10^3/uL (4.0-10.0)
[2020-07-04 14:12] LABS: OSMOLALITY SERUM 303 MOSM/KG (280-301)
[2020-07-04] MEDS ORDERED: NS 1,000 ML IV ONE (14:15)
[2020-07-04 14:22] LABS: ACETONE/KETONE 2.04 MG/DL (<2.81); ALBUMIN 2.8 GM/DL (3.2-5.2); ALT/SGPT 16 U/L (12-78); BILIRUBIN,DIRECT < 0.1 MG/DL (0.0-0.2); BILIRUBIN,TOTAL 0.2 MG/DL (0.2-1.0); BLOOD UREA NITROGEN 22 MG/DL (7-18); CALCIUM LEVEL 8.7 MG/DL (8.8-10.2); CARBON DIOXIDE LEVEL 29 MEQ/L (21-32); CHLORIDE LEVEL 99 MEQ/L (98-107); CREATININE FOR GFR 1.02 MG/DL (0.55-1.30); GLOMERULAR FILTRATION RATE 58.7 (>45); GLUCOSE, FASTING 405 MG/DL (70-100); LIPASE 84 U/L (73-393); MAGNESIUM LEVEL 1.8 MG/DL (1.8-2.4); PHOSPHORUS LEVEL 3.7 MG/DL (2.5-4.9); POTASSIUM SERUM 5.2 MEQ/L (3.5-5.1); SODIUM LEVEL 133 MEQ/L (136-145); TOTAL PROTEIN 7.3 GM/DL (6.4-8.2)
[2020-07-04 14:58] LABS: HEMOGLOBIN A1c 11.1 %
[2020-07-04] MEDS ORDERED: HumuLIN R (REGULAR) INSULIN (NovoLIN R) **100U/ML** PER UNIT IV ONE (15:15)
[2020-07-04 18:23] VITALS: BP 144/87
--- NOTE | 2020-07-04 19:41 | ECGEPIP ---
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
== END 2020-07-04 18:30 | disposition home or self-care (01) ==
LOC: EDBD 12:44 → M ED 12:44
DX: E11.65 Type 2 diabetes mellitus with hyperglycemia (principal); R19.7 Diarrhea, unspecified; I10 Essential (primary) hypertension; E78.5 Hyperlipidemia, unspecified; E03.9 Hypothyroidism, unspecified; D64.9 Anemia, unspecified; J45.909 Unspecified asthma, uncomplicated; E66.9 Obesity, unspecified; Z88.8 Allergy status to other drugs, medicaments and biological substances; Z91.013 Allergy to seafood; Z79.4 Long term (current) use of insulin; Z79.82 Long term (current) use of aspirin; Z79.890 Hormone replacement therapy; Z79.899 Other long term (current) drug therapy

== ENCOUNTER → 2020-07-10 | Outpatient (REF) | payer OTHER ==
[~2020-07-10] MED LIST changes: +SOMA350T PO
[2020-07-10 14:13] LABS: ALBUMIN 3.4 GM/DL (3.2-5.2); BILIRUBIN,TOTAL 0.3 MG/DL (0.2-1.0); CALCIUM LEVEL 9.7 MG/DL (8.8-10.2); CREATININE FOR GFR 1.18 MG/DL (0.55-1.30); GLOMERULAR FILTRATION RATE 49.6 (>45); POTASSIUM SERUM 4.7 MEQ/L (3.5-5.1); TOTAL PROTEIN 7.9 GM/DL (6.4-8.2)
== END ==
LOC: M SFHCPLAZ 09:28
PROVIDERS: ATTEND Nurse Practitioner Family
DX: E11.65 Type 2 diabetes mellitus with hyperglycemia (principal)

== ENCOUNTER → 2020-07-18 | Outpatient (CLI) | payer OTHER ==
--- NOTE | 2020-07-20 01:01 | ECWPNPC ---
PATIENT NAME: KAIN RUIZ : 1960 GENDER: FEMALE VISIT DATE: 07/18/2020 DISCHARGE DATE: 07/18/20910 VISIT LOCKED DATE TIME: PHYSICIAN: JUAN PABLO PERKINS PHYSICIAN PAGER NO: ACTIVE RESOURCE: JUAN PABLO PERKINS REASON FOR APPOINTMENT 1. SCIATICA HISTORY OF PRESENT ILLNESS GENERAL: 59-YEAR-OLD FEMALE IN FOR INITIAL PAIN CONSULT REGARDING SCIATICA. PATIENT STATES THAT SHE'S HAD INJECTIONS IN THE PAST FOR HER SCIATICA AND THEY WORKED WELL. SHE RATES HER PAIN CURRENTLY AT AN 8 OUT OF 10 AND DESCRIBES IT STABBING. FALL RISK SCREENING: SCREENING :TWO OR MORE FALLS WITH INJURY IN THE PAST YEAR PT FELL ONE MONTH AGO AND HURT HER BACK AND NECK. PT ADMITS TO SEEKING MEDICAL TREATMENT. PAIN SCREENING: PATIENT HAS A COMPLAINT OF ACUTE OR CHRONIC PAIN :YES LOCATION OF PAIN:NECK, RIGHT SHOULDER, LOW BACK INTENSITY OF PAIN (SCALE OF 1 TO 10):8 WHAT DOES YOUR PAIN FEEL LIKE:STABBING DURATION:CONTINOUS, CONSTANT PAIN IS INCREASED BY:ACTIVITIES PAIN IS DECREASED BY:OTHERS NOTHING TREATMENT/MEDICATIONS USED TO MANAGE PAIN:OTC PAIN RELIEVERS LEVEL OF RELIEF FROM PAIN TREATMENTS IN THE PAST:25% PAIN HAS INTERFERED WITH THE FOLLOWING:BATHING/DRESSING, WALKING ABILITY, HOUSEWORK, SLEEP, TRANSPORTATION, TOILETING NURSING NOTE: - - - - - -. PAIN CENTER INTAKE QUESTIONS: DO YOU HAVE A HISTORY OF MRSA? :NO DO YOU TAKE A BLOOD THINNERS? :NO DO YOU HAVE ANY BLEEDING DISORDERS? :NO ANY NEW NUMBNESS OR WEAKNESS IN YOUR LEGS OR ARMS? :YES NEUROPATHY TO ARMS AND LEGS ANY PACEMAKER,DEFIBRILLATOR, OR DORSAL COLUMN STIMULATOR? :NO DO YOU HAVE ANY RASHES OR OPEN SORES? :NO ARE YOU ALLERGIC TO IV DYE? :NO ARE YOU DIABETIC? :YES INSULIN ANY NEW PROBLEMS WITH YOUR MEDICATIONS? :NO HAVE YOU RECEIVED A VACCINE IN THE PAST 30 DAYS? :NO DO YOU PLAN TO RECEIVE A VACCINE IN THE NEXT 21 DAYS? :NO DO YOU NEED ANY PRESCRIPTION? :NO DO YOU TAKE ANY IMMUNOSUPPRESSIVE MEDICATIONS? :NO CURRENT MEDICATIONS TAKING VENTOLIN HFA 108 (90 BASE) MCG/ACT AEROSOL SOLUTION 2 PUFFS NEEDED INHALATION EVERY 4 HOURS NEEDED TAKING ATORVASTATIN CALCIUM 40 MG TABLET 1 TABLET ORALLY ONCE A DAY TAKING PULMICORT FLEXHALER 180 MCG/ACT AEROSOL POWDER BREATH ACTIVATED 1 PUFF INHALATION TWICE A DAY TAKING ONE TOUCH ULTRA BLUE STRIPS 1 STRIP SUBCUTANEOUSLY BID TAKING TEMAZEPAM 15 MG CAPSULE 1 CAPSULE AT BEDTIME NEEDED ORALLY ONCE A DAY TAKING PEPCID 40 MG TABLET 1 TABLET AT BEDTIME ORALLY BID TAKING HYDROXYZINE HCL 50 MG TABLET 1 TABLET NEEDED ORALLY BEFORE BEDTIME TAKING TRAZODONE HCL 150 MG TABLET 1 TABLET AT BEDTIME ORALLY ONCE A DAY TAKING HYDROXYZINE HCL 25 MG TABLET 1 TABLET FOUR TIMES A DAY ORALLY QID TAKING DEPAKOTE ER 500 MG TABLET EXTENDED RELEASE 24 HOUR 1 TABLET ORALLY TWICE A DAY TAKING LEVOTHYROXINE SODIUM 200 MCG TABLET 1 TABLET ON AN EMPTY STOMACH IN THE MORNING ORALLY ONCE A DAY TAKING VALPROIC ACID 250 MG CAPSULE 2 CAPS ORALLY TWICE DAILY AT 800 AND 1700 TAKING DICLOFENAC SODIUM 1 % CREAM 2 PUMPS TO AFFECTED AREA TRANSDERMAL EVERY 6 HOURS NEEDED TAKING ULTRA THIN PEN NEEDLES 31G X 5 MM MISCELLANEOUS DIRECTED DX E11.9 BEFORE BEDTIME TAKING POTASSIUM CHLORIDE ER 10 MEQ TABLET EXTENDED RELEASE 1 TABLET WITH FOOD ORALLY DAILY TAKING OMEPRAZOLE 40 MG CAPSULE DELAYED RELEASE 1 CAPSULE ORALLY TWICE A DAY TAKING MAY HAVE - - XXL DEPENDS DX R32, N39.46 SIX TIMES DAILY NEEDED TAKING GABAPENTIN 400 MG CAPSULE 1 CAPSULE ORALLY THREE TIMES DAILY TAKING CHUX 1PAD TO BED/COUCH/CHAIR TOPICALLY BID TAKING LASIX 40 MG TABLET 1 TABLET ORALLY DAILY TAKING ASPIRIN 81 81 MG TABLET DELAYED RELEASE 1 TABLET ORALLY ONCE A DAY TAKING OXYBUTYNIN CHLORIDE 5 MG TABLET 1 TABLET ORALLY TWICE A DAY TAKING LOSARTAN POTASSIUM 50 MG TABLET 1 TABLET ORALLY ONCE A DAY TAKING METFORMIN HCL ER 500 MG TABLET EXTENDED RELEASE 24 HOUR 1 TABLET WITH EVENING MEAL ORALLY ONCE A DAY TAKING ALOGLIPTIN BENZOATE 25 MG TABLET 1 TAB ORALLY DAILY TAKING BASAGLAR KWIKPEN 100 UNIT/ML SOLUTION PEN-INJECTOR 55 UNITS AT BEDTIME SUBCUTANEOUS BEFORE BEDTIME NOT-TAKING NYSTATIN 163529 UNIT/GM POWDER 1 APPLICATION UNDER PANNUS EXTERNALLY TWICE A DAY NOT-TAKING ONDANSETRON HCL 4 MG TABLET 1 TABLET ORALLY Q6H PRN NOT-TAKING BUSPIRONE HCL 15 MG TABLET TAKE ONE TABLET BY MOUTH @8AM AND TAKE ONE TABLET @8PM ORALLY BID NOT-TAKING DULOXETINE HCL 60 MG CAPSULE DELAYED RELEASE PARTICLES 1 CAPSULE ORALLY ONCE A DAY NOT-TAKING TRAMADOL HCL 50 MG TABLET 1 TABLET Q12 HOURS NEEDED ORALLY BID PRN MDD 2 TABS NOT-TAKING LIDOCAINE HCL 4 % GEL 1 APPLICATION, SHOULDER, KNEE, BUTTOCK NEEDED EXTERNALLY THREE TIMES A DAY NOT-TAKING NYSTATIN 106173 UNIT/ML SUSPENSION 5 ML ORALLY SWISH AND SWALLOW 4 TIMES A DAY NOT-TAKING MELOXICAM 7.5 MG TABLET 1 TABLET ORALLY BID NOT-TAKING TIZANIDINE HCL 4 MG TABLET 1 TABLET NEEDED ORALLY THREE TIMES DAILY NEEDED NOT-TAKING MAPAP 500 MG CAPSULE 2 CAPSULE NEEDED ORALLY EVERY 8 HRS MEDICATION LIST REVIEWED AND RECONCILED WITH THE PATIENT PAST MEDICAL HISTORY ANEMIA LYMPHEDEMA [id number] INSULIN HTN HYPOTHYROIDISM H/O SEIZURES CONSTIPATION CHF-NONE ON ECHO 05/2019 SUICIDAL IDEATION 07/2019 ALLERGIES IBUPROFEN: UPSET STOMACH - SIDE EFFECTS ATORVASTATIN CALCIUM: ELEVATES LIVER ENZYMES - SIDE EFFECTS QUETIAPINE FUMARATE: SEIZURES - ALLERGY SHELLFISH: ANAPHYLAXIS - ALLERGY HYDROLYZED CORN OIL: DIARRHEA - SIDE EFFECTS SURGICAL HISTORY NO SURGICAL HISTORY DOCUMENTED. FAMILY HISTORY FATHER: MOTHER: 3 BROTHER(S) , 5 SISTER(S) . 1DAUGHTER(S) . 2 BROTHERS . SOCIAL HISTORY GENERAL: TOBACCO USE ARE YOU A:NONSMOKER LATEX QUESTIONNAIRE LATEX ALLERGY : HAVE YOU EVER DEVELOPED ANY TYPE OF REACTION AFTER HANDLING LATEX PRODUCTS SUCH RUBBER GLOVES, CONDOMS, DIAPHRAGMS, BALLOONS, SOCKS, OR UNDERWEAR?NO LATEX ALLERGY : HAVE YOU EVER DEVELOPED ANY TYPE OF REACTION DURING OR AFTER DENTAL APPOINTMENT, VAGINAL/RECTAL EXAMINATION, SURGICAL PROCEDURE, OR ANY OTHER EXPOSURE?NO LATEX RISK : HAVE YOU EVER HAD ANY DIFFICULTY BREATHING OR HIVES AFTER EATING OR HANDLING ANY FRUITS, OR VEGETABLES; SUCH KIWI, BANANAS, STONE FRUITS, OR CHESTNUTSNO LATEX RISK : DO YOU HAVE A PREVIOUS PERSONAL HISTORY OF MORE THAN NINE SURGERIES, SPINA BIFIDA, OR REPEATED CATHERIZATIONS? NO LATEX RISK : ARE YOU FREQUENTLY EXPOSED TO LATEX PRODUCTS IN YOUR OCCUPATION?NO DATE ASKED : 07/10/2020 ALCOHOL SCREENING DID YOU HAVE A DRINK CONTAINING ALCOHOL IN THE PAST YEAR?NO POINTS0 INTERPRETATIONNEGATIVE RECREATIONAL DRUG USE DRUG USE?NO CAFFEINE CAFFEINE USE?YES HOW OFTEN AND HOW MUCH? 1-2 CUPS COFFEE HIV / HEP-C SCREENING HIV TEST OFFERED TO PATIENT:YES DATE OFFERED:04/18/2019 TEST ACCEPTED:NO HEP-C TEST OFFERED TO PATIENT:YES DATE OFFERED:04/18/2019 REASON:PATIENT DECLINED TEST ACCEPTED:NO REASON:PATIENT DECLINED BROCHURE PROVIDED TO PATIENTYES LANGUAGE LANGUAGES SPOKEN:BENGALI LEARNING BARRIERS / SPECIAL NEEDS CHANGE FROM LAST VISIT?NO BARRIERS TO LEARNING?NO HEARING IMPAIRED?NO VISION IMPAIRED?YES COGNITIVELY IMPAIRED?NO :CORRECTIVE LENSES READINESS TO LEARN?YES LEARNING PREFERENCES?NO LEARNING CAPABILITIES PRESENT?YES EMOTIONAL BARRIERS?NO SPECIAL DEVICES?YES :WALKER HAND CANDLE DIPPER NEEDED?NO DOMESTIC VIOLENCE DO YOU FEEL SAFE IN YOUR ENVIRONMENT?YES DIET: NO CONCENTRATED SWEETS.. MARITAL STATUS: . PAIN CLINIC PFS, CLERGY, PUBLIC HEALTH REFERRALS HAS THE PATIENT BEEN EDUCATED REGARDING HIS/HER PLAN OF CARE?YES HAS THE PATIENT BEEN EDUCATED REGARDING PAIN, THE RISK FOR PAIN, THE IMPORTANCE OF EFFECTIVE PAIN MANAGEMENT, AND THE PAIN ASSESSMENT PROCESS?YES ADVANCE DIRECTIVE ADVANCE DIRECTIVE DISCUSSED WITH PATIENT:YES SISTERKUMAR [phone] HOSPITALIZATION/MAJOR DIAGNOSTIC PROCEDURE SUICIDE ATTEMPT C DRUG OVERDOSE AT [facility] 2013 GASTROPARESIS, HYPOGLYCEMIA, GASTROENTERITIS, & BILIARY COLIC @ [facility] 2017 REVIEW OF SYSTEMS CONSTITUTIONAL: ANY RECENT FEVER NO . CHILLS NO . WEIGHT CHANGE OF UNKNOWN REASONS NO . MUSCULOSKELETAL: ANY UNUSUAL JOINT PAIN OR SWELLING NOT MENTIONED NO . SYSTEMIC LUPUS NO . ANY NEUROMUSCULAR DISORDER NOT MENTIONED NO . LYME DISEASE NO . GASTROENTEROLOGY: ANY NEW CHANGE IN BOWEL CONTROL? NO . HISTORY OF LIVER DISORDER NOT MENTIONED NO . HISTORY OF UNUSUAL ABDOMINAL PAIN OR CRAMPING NOT MENTIONED NO . NO CONSTIPATION. GENITOURINARY: ANY NEW CHANGE IN BLADDER CONTROL? NO . ANY RENAL/KIDNEY CONDITON NOT MENTIONED NO . NEUROLOGY: HISTORY OF TBI NOT MENTIONED NO . OTHER NEW NUMBNESS OR PAIN PATTERNS NOT MENTIONED NO . NEW ONSET DIZZINESS OR NEUROLOGICAL CHANGES NOT MENTIONED NO . HISTORY OF SEVERE HEADACHES NOT MENTIONED NO . HISTORY OF STROKE OR NEUROLOGICAL DISORDER NOT MENTIONED NO . CARDIOLOGY: HEART SURGERY NO . CONGESTIVE HEART FAILURE/FLUID OVERLOAD NOT MENTIONED NO . HISTORY OF CHEST PAIN,IRREGULAR HEART BEAT NOT MENTIONED NO . RESPIRATORY: SHORTNESS OF BREATH ON EXERTION, WHEEZES, UNUSUAL COUGH NOT MENTIONED NO . ENDOCRINOLOGY: ADRENAL GLAND OR THYROID DISORDERS NOT MENTIONED NO . UNUSUAL URINATION, DIZZINESS OR LETHARGY NOT MENTIONED NO . VITAL SIGNS WT 267 LBS, HT 61 IN, BMI 50.44 INDEX, BP 143/91 MM HG, HR 93 /MIN, RR 20 /MIN, TEMP 97.4 F, OXYGEN SAT % 93, SAFE IN ENV? (Y/N) YES, REVIEWED BY: DM. EXAMINATION GENERAL EXAMINATION: GENERALNO ACUTE DISTRESS, WELL NOURISHED AND HYDRATED. PSYCHAPPROPRIATE MOOD AND AFFECT . LUNGS:CLEAR TO AUSCULTATION BILATERALLY, NO WHEEZES, RHONCHI, RALES. HEART:NO MURMURS, REGULAR RATE AND RHYTHM. BACK:POINT TENDER LEFT SIJ, POSITIVE JOSE'S TEST LEFT SIDE . ASSESSMENTS SACROILIITIS, NOT ELSEWHERE CLASSIFIED - M46.1 (PRIMARY) TREATMENT SACROILIITIS, NOT ELSEWHERE CLASSIFIED START CELEBREX CAPSULE, 100 MG, 1 CAPSULE WITH FOOD, ORALLY, ONCE A DAY, 30 DAY(S), 30 REFILL TIZANIDINE HCL TABLET, 4 MG, 1 TABLET NEEDED, ORALLY, THREE TIMES DAILY NEEDED, 90 DAY(S), 90, REFILLS 1 NOTES: 59-YEAR-OLD FEMALE IN FOR INITIAL PAIN CONSULT. GIVEN PRESENTING SYMPTOMS AND RESULTS OF PHYSICAL EXAMINATION RECOMMENDED LEFT SIJ AND STARTING CELEBREX 100 MG DAILY WITH FOLLOW-UP POST PROCEDURE. PATIENT HAS EXPRESSED UNDERSTANDING OF AND WAS IN AGREEMENT WITH TREATMENT PLAN. GIVEN TIME TO ASK QUESTIONS AND EXPRESS CONCERNS. CLINICAL NOTES: STARTED PATIENT ON CELEBREX 100MG AND REFILLED THE TIZANIDINE 4MG TAB. PRE- PROCEDURE TEACHING WAS GIVEN AND PATIENT AGREES AND UNDERSTANDS JUAN PABLO WILL SEE PATIENT POST-PROCEDURE -DIGNA BARNETT. OTHERS NOTES: 07/17/20 JOHN PARKINSON SUPERVISOR COVERING AND LINING. PROCEDURE CODES FA211 ESTABILISHED PATIENT [facility] CHARGE DISPOSITION & COMMUNICATION FOLLOW UP POSTPROCEDURE (REASON: LEFT SIJ) ELECTRONICALLY SIGNED BY KATHI MCNEAL ON 07/19/2020 AT 09:52 AM EDT DISCLAIMER : THIS IS A VISIT SUMMARY EXTRACTED FROM THE [employer] CHART. IT IS NOT A COPY OF THE [employer] PROGRESS NOTE. GANESH
== END ==
LOC: M PAIN 08:30
PROVIDERS: ATTEND Family Medicine
DX: M46.1 Sacroiliitis, not elsewhere classified (principal); E11.9 Type 2 diabetes mellitus without complications; I10 Essential (primary) hypertension; E03.9 Hypothyroidism, unspecified; Z88.6 Allergy status to analgesic agent; Z88.8 Allergy status to other drugs, medicaments and biological substances; Z91.013 Allergy to seafood; Z91.018 Allergy to other foods; E66.01 Morbid (severe) obesity due to excess calories; Z68.43 Body mass index [BMI] 50.0-59.9, adult; Z79.4 Long term (current) use of insulin; Z79.82 Long term (current) use of aspirin; Z79.899 Other long term (current) drug therapy

== ENCOUNTER 2020-07-19 16:42 | Emergency (ER) | payer OTHER ==
[~2020-07-19] VITALS: Ht 154.9 cm; Wt 127.3 kg
[~2020-07-19 16:42] MED LIST changes: -SOMA350T PO
[2020-07-19] MEDS ORDERED: PERCOCET 5MG/325MG TAB PO ONE (17:30)
--- NOTE | 2020-07-19 17:57 | REPVR ---
PROCEDURE INFORMATION: Exam: CT Lumbar Spine Without Contrast Exam date and time: 07/19/2020 5:16 PM Age: 59 years old Clinical indication: Injury or trauma; Fall; Blunt trauma (contusions or hematomas) TECHNIQUE: Imaging protocol: Computed tomography images of the lumbar spine without contrast. Radiation optimization: All CT scans at this facility use at least one of these dose optimization techniques: automated exposure control; mA and/or kV adjustment per patient size (includes targeted exams where dose is matched to clinical indication); or iterative reconstruction. COMPARISON: CT Spine, lumbar w/o contrast 04/03/2020 1:15 AM FINDINGS: Vertebrae: Sacralization of the L5 vertebra is present. No acute fracture is identified. There is severe facet arthropathy in the lower lumbar spine. Alignment is anatomic. Discs/Spinal canal/Neural foramina: There is no severe spinal canal stenosis. Moderate/severe left and mild right neural foraminal narrowing is present at L3-L4 and L4-L5. Soft tissues: Unremarkable. IMPRESSION: 1. No acute abnormality. 2. Chronic findings as discussed above. Electronically signed by: Brennan Schmitz On 07/19/2020 17:56:40 PM
--- NOTE | 2020-07-19 18:06 | REP ---
INDICATION: fall. COMPARISON: Comparison chest x-ray March 14, 2020.. TECHNIQUE: Six views including PA chest. FINDINGS: PA chest radiograph shows no evidence of pneumothorax or hydrothorax. Mediastinum is not widened. Heart size is normal. Lung bullock are clear. Multiple views of the right ribcage showed no evidence of acute rib fracture or bony destructive lesion. There are degenerative changes in the thoracic spine. IMPRESSION: Negative right rib radiographs. No fracture or acute bony abnormality. <Electronically signed by Diogenes Mckeon > 07/19/20 [id number]
--- NOTE | 2020-07-19 18:15 | REP ---
INDICATION: fall. COMPARISON: Comparison radiographs September 13, 2014.. TECHNIQUE: Three views. FINDINGS: The right glenohumeral and acromioclavicular joints are normally aligned. There is osteoarthritic hypertrophy and acromion process spurring. No fracture or subluxation is seen. Periarticular soft tissues are unremarkable. IMPRESSION: No fracture or subluxation seen. AC joint osteoarthritis. <Electronically signed by Diogenes Mckeon > 07/19/20 [id number]
[2020-07-19] MEDS ORDERED: SOMA350T PO (19:02)
[2020-07-19] MEDS ORDERED: carisoprodoL 350 MG TAB PO ONE (19:15)
[2020-07-19 19:58] VITALS: BP 144/74
== END 2020-07-19 20:15 | disposition home or self-care (01) ==
LOC: M ED 16:42
DX: S39.012A Strain of muscle, fascia and tendon of lower back, initial encounter (principal); T14.8XXA Other injury of unspecified body region, initial encounter; M25.511 Pain in right shoulder; W01.0XXA Fall on same level from slipping, tripping and stumbling without subsequent striking against object, initial encounter; Y92.019 Unspecified place in single-family (private) house as the place of occurrence of the external cause; Y93.9 Activity, unspecified; M19.011 Primary osteoarthritis, right shoulder; M48.061 Spinal stenosis, lumbar region without neurogenic claudication; I11.9 Hypertensive heart disease without heart failure; E11.9 Type 2 diabetes mellitus without complications; Z88.8 Allergy status to other drugs, medicaments and biological substances; Z91.018 Allergy to other foods; Z79.82 Long term (current) use of aspirin; Z79.899 Other long term (current) drug therapy

== ENCOUNTER → 2020-09-09 | Outpatient (REF) | payer OTHER ==
[~2020-09-09] MED LIST changes: +SOMA350T PO
[2020-09-09 18:09] LABS: APPEARANCE, URINE CLOUDY (CLEAR); BACTERIA, URINE AUTO 1+ (NEGATIVE); BILIRUBIN, URINE AUTO NEGATIVE (NEGATIVE); BLOOD, URINE BLOOD 1+ (NEGATIVE); COLOR, URINE YELLOW (YELLOW); GLUCOSE, URINE (UA) AUTO 3+ mg/dL (NEGATIVE); KETONE, URINE AUTO TRACE mg/dL (NEGATIVE); LEUKOCYTE ESTERASE, URINE AUTO 3+ (NEGATIVE); MUCUS, URINE SMALL (NEGATIVE); NITRITE, URINE AUTO NEGATIVE (NEGATIVE); PROTEIN, URINE AUTO 1+ mg/dL (NEGATIVE); RBC, URINE AUTO 43 /HPF (0-3); SPECIFIC GRAVITY URINE AUTO 1.024 (1.002-1.035); SQUAMOUS EPITHELIAL CELL UR AU 15 /HPF (0-6); UROBILINOGEN, URINE AUTO 0.2 mg/dL (0.0-2.0); WBC, URINE AUTO 37 /HPF (0-3)
== END ==
LOC: M SFHCPLAZ 16:43
PROVIDERS: ATTEND Family Medicine
DX: R30.0 Dysuria (principal)

== ENCOUNTER 2020-09-19 13:56 | Emergency (ER) | payer OTHER ==
[2020-09-19 14:56] LABS: BASO % 0.6 % (0.0-1.0); EOS # 0.3 10^3/uL (0.0-0.5); EOS % 6.3 % (0.0-3.0); HEMOGLOBIN 8.4 g/dl (12.0-15.5); LYMPH # 1.2 10^3/uL (1.5-5.0); LYMPH % 25.2 % (24.0-44.0); MEAN CORPUSCULAR HEMOGLOBIN 21.3 pg (27.0-33.0); MEAN CORPUSCULAR VOLUME 76.1 fl (80.0-96.0); MONO # 0.6 10^3/uL (0.0-0.8); MONO % 11.8 % (0.0-5.0); NEUTROPHILS # 2.6 10^3/uL (1.5-8.5); PLATELET COUNT, AUTOMATED 182 10^3/uL (150-450); RED BLOOD COUNT 3.94 10^6/uL (4.00-5.40); WHITE BLOOD COUNT 4.7 10^3/uL (4.0-10.0)
[2020-09-19 15:32] LABS: RSV AMPLIFICATION NEGATIVE (NEGATIVE)
[2020-09-19 15:35] LABS: BLOOD UREA NITROGEN 20 MG/DL (7-18); CALCIUM LEVEL 8.4 MG/DL (8.8-10.2); CARBON DIOXIDE LEVEL 28 MEQ/L (21-32); CHLORIDE LEVEL 97 MEQ/L (98-107); CK-MB VALUE MASS < 1.0 NG/ML (<3.6); CPK CREATINE PHOSPHOKINASE 67 U/L (26-192); CREATININE FOR GFR 1.21 MG/DL (0.55-1.30); FREE T4 0.59 NG/DL (0.76-1.46); GLOMERULAR FILTRATION RATE 48.2 (>45); GLUCOSE, FASTING 478 MG/DL (70-100); MAGNESIUM LEVEL 1.7 MG/DL (1.8-2.4); MB/CK RELATIVE INDEX 1.49 (< OR =4); SODIUM LEVEL 131 MEQ/L (136-145); TROPONIN I < 0.02 NG/ML (< 0.10)
[2020-09-19] MEDS ORDERED: HumuLIN R (REGULAR) INSULIN (NovoLIN R) **100U/ML** PER UNIT IV STA (15:43)
--- NOTE | 2020-09-19 15:46 | REP ---
INDICATION: Syncope/near-syncope COMPARISON: 03/14/2020 TECHNIQUE: Portable AP view of the chest FINDINGS: The mediastinum and cardiac silhouette are stable and within normal limits for portable technique. The lung bullock are clear without acute consolidation, effusion, or pneumothorax. Skeletal structures are intact. IMPRESSION: No acute cardiopulmonary process appreciated. <Electronically signed by Petey Walker > 09/19/20 [id number]
--- NOTE | 2020-09-19 16:00 | REP ---
INDICATION: Syncope COMPARISON: 05/18/2015 TECHNIQUE: Axial noncontrast images from the skull base to the thoracic inlet with coronal reformations. This CT examination was performed using the following dose reduction techniques: Automated exposure control, adjustment of mA and/or kv according to the patient's size, and use of iterative reconstruction technique. FINDINGS: Age-related atrophy and microvascular ischemic changes are appreciated. The ventricles and sulci are symmetric. Vasquez-white differentiation is maintained. There is no evidence for acute intracranial hemorrhage, mass/mass effect, pathology or infarction. No extra-axial fluid collection. Calvarium is intact. Paranasal sinuses and mastoid air cells are clear. IMPRESSION: Age related atrophy and microvascular ischemic changes. No acute intracranial hemorrhage, infarction, or mass/mass effect. <Electronically signed by Petey Walker > 09/19/20 [id number]
[2020-09-19] MEDS ORDERED: NS 500 ML IV ONE (16:15)
[2020-09-19 16:22] VITALS: O2SAT 98
[2020-09-19 18:01] VITALS: BP 137/84
--- NOTE | 2020-09-20 08:02 | ECGEPIP ---
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
== END 2020-09-19 18:37 | disposition home or self-care (01) ==
LOC: M ED 13:56
DX: E11.65 Type 2 diabetes mellitus with hyperglycemia (principal); I11.9 Hypertensive heart disease without heart failure; I50.9 Heart failure, unspecified; Z79.4 Long term (current) use of insulin; Z79.82 Long term (current) use of aspirin; Z79.899 Other long term (current) drug therapy; Z88.8 Allergy status to other drugs, medicaments and biological substances; Z91.018 Allergy to other foods; Z91.013 Allergy to seafood

== ENCOUNTER → 2020-10-01 | Outpatient (REF) | payer OTHER ==
[~2020-10-01] MED LIST changes: +GABA-282 PO; -GABA-843 PO
== END ==
LOC: M SFHCPLAZ 13:18
PROVIDERS: ATTEND Physician Assistant Medical
DX: R05 Cough (principal)

== ENCOUNTER 2020-10-16 14:41 | Inpatient (IN) | payer OTHER ==
[~2020-10-16] VITALS: Ht 154.9 cm; Wt 126.9 kg
[2020-10-16] MEDS ORDERED: GABA-845 PO (14:56)
[2020-10-16] MEDS ORDERED: POTA1TAB23 PO (14:56)
[2020-10-16] MEDS ORDERED: ALOG25TA PO (14:56)
[2020-10-16] MEDS ORDERED: ATOR40TA75 PO (14:56)
[2020-10-16] MEDS ORDERED: METF-838 PO (14:56)
[2020-10-16] MEDS ORDERED: LIDO2.5C15 TOP (14:56)
--- NOTE | 2020-10-16 15:25 | REP ---
INDICATION: pain after fall. COMPARISON: Comparison left tib fib series 11 July 2019.. TECHNIQUE: Four views of the left knee are presented. Patient unable to position for sunrise. FINDINGS: Four views of the left knee demonstrate diffuse osteopenia. There is advanced patellofemoral, medial, and lateral compartment osteoarthritis. There is no evidence of joint effusion.. No fracture or subluxation is seen. No opaque foreign body noted. IMPRESSION: Advanced 3 compartment osteoarthritis of the left knee. Diffuse osteopenia. No acute bony abnormality seen.. <Electronically signed by Diogenes Mckeon > 10/16/20 [id number]
[2020-10-16] MEDS ORDERED: traMADol 50 MG TAB PO ONE (15:45)
[2020-10-16] MEDS ORDERED: ACETAMINOPHEN 325 MG TAB PO ONE (15:45)
--- OUTSIDE RECORDS SUMMARY | 2020-10-16 15:52 | CCD ---
Author Author [facility] Organization [facility] Address Unknown Phone Unavailable Care Team Providers Care Pediatric Urologist Name Role Phone Butch Donaldson Unavailable PROBLEMS Type Condition ICD9-CM Code EFY69-HG Code Onset Dates Condition S tatus SNOMED Code Notes Problem Congestive heart failure, [place] KIMBLE class 1, unspecified congestive heart failure type I50.9 Active 57659248 Problem Anemia, unspecified type D64.9 Active 4747127 00 Problem Debilitated R53.81 Active 10438755 Problem Constipation, unspecified constipation type K59.00 Active 84304773 Problem Seizures R56.9 Active 50371143 Problem Other chronic pain G89.29 Active 15366644 Problem Sciatica of left side M54.32 Active 7917275428 57112 Problem Essential hypertension I10 Active 19820887 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 Z79.4 Active 317128798 Problem Cervical cancer screening Z12.4 Active 310095 001 Problem Breast cancer screening Z12.39 Active 64207558 1 Problem Morbid (severe) obesity due to excess calories E66 .01 Active 27373044541693 Problem Body mass index (BMI) of 50-59.9 in adult Z68.43 Active 570116762 Problem Candidiasis B37.9 Active 99728551 Problem Post-traumatic osteoarthritis of left knee M17.32 Active 736363313 Problem PMB (postmenopausal bleeding) N95.0 Active 76 388420 Problem Postmenopausal vaginal bleeding N95.0 Active 36560902 Problem DDD (degenerative disc disease), lumbar M51.36 Active 58910209 Problem Type 2 diabetes mellitus with hyperglycemia E11.65 Active 779100720266971 Problem Acquired hypothyroidism E03.9 Active 21088625 2 Problem Sacroiliitis, not elsewhere classified M46.1 A ctive 166573203 Problem Lymphedema I89.0 Active 527934497 Problem Type 2 diabetes mellitus without complications E11 .9 Active 489824632 Problem Mixed stress and urge urinary incontinence N39.46 Active 791826464 Problem Falls frequently R29.6 Active 940777352 Problem Incontinence in female R32 Active 15193441 Problem Hypoglycemia E16.2 Active 483922036 ALLERGIES Allergen (clinical drug ingredient) Drug/Non Drug Allergy do cumented on EMR Reaction Allergy Type Onset Date Status shellfish Anaphylaxis Non Drug Allergy Active quetiapine Quetiapine Fumarate([facility] Code:[address]-09) seizures Adolfo g Allergy Active hydrolyzed corn oil Diarrhea Non Drug Allergy Active atorvastatin Atorvastatin Calcium([facility] Code:[address] -98) elevates liver enzymes Drug Allergy Active ibuprofen Ibuprofen([facility] Code:[address]-84) upset stomach Drug Aller gy Active ENCOUNTERS from 1960 to 2020-10-07 Encounter Location Date Provider Diagnosis [facility] [address] [place] [id number] Sep, Butch Donaldson IMMUNIZATIONS No Information SOCIAL HISTORY Tobacco Use: Social History Observation Description Date Details (start date - stop date) Never Smoker Sex Assigned At : Social History Observation Description Sex Assigned At Unknown Language: Question Answer Notes Languages spoken: Ugandan Alcohol Screening: Question Answer Notes Did you have a drink containing alcohol in the past year? No Points 0 Interpretation Negative Tobacco Use: Question Answer Notes Are you a: never smoker REASON FOR REFERRAL No Information VITAL SIGNS No information MEDICATIONS Medication SIG (Take, Route, Frequency, Duration) Notes Start Da te End Date Status Basaglar KwikPen 100 UNIT/ML 55 units at bedtime Subcutaneous be fore bedtime Active Aspirin 81 81 MG 1 tablet Orally Once a day Active Diclofenac Sodium 1 % 2 pumps to affected area Tra nsdermal every 6 hours as needed Active Atorvastatin Calcium 40 MG 1 tablet Orally Once a day for 30 day(s) Active Omeprazole 40 MG 1 capsule Orally twice a day for 30 days Active Tizanidine HCl 4 MG 1 tablet as needed Orally three times daily as ne eded Active Lasix 40 MG 1 tablet Orally Daily Ac tive Ventolin HFA 108 (90 Base) MCG/ACT 2 puffs as needed I nhalation every 4 hours as needed Active Chux 1pad to bed/couch/chair topically bid 21 May, 2 020 Active Oxybutynin Chloride 5 MG 1 tablet Orally Twice a day 2019 Active Celebrex 100 MG 1 capsule with food Orally Once a day Active Ultra Thin Pen [place] 31G X 5 MM as directed DX E11.9 before bedtime Active Gabapentin 400 MG 1 capsule Orally three times daily 2019 Active Alogliptin Benzoate 25 MG 1 tab Orally Daily Active Losartan Potassium 50 MG 1 tablet Orally Once a day for 28 Active Valproic Acid 250 MG 2 caps orally Twice daily at 800 and 1700 for 28 days Active MetFORMIN HCl ER 500 MG 1 tablet with evening meal Orally Once a day Active Lidocaine HCl 4 % 1 application, shoulder, kne e, buttock as needed Externally Three times a day Active TraZODone HCl 150 MG 1 tablet at bedtime Orally Once a day for 30 day (s) Active Pulmicort Flexhaler 180 MCG/ACT 1 puff Inhalation Twice a day Active Mapap 500 MG 2 capsule as needed Orally every 8 hrs Active Levothyroxine Sodium 200 MCG 1 tablet on an empty stom ach in the morning Orally Once a day for 30 Active Potassium Chloride ER 10 MEQ 1 tablet with food Orally Daily for 30 D ays Active Fluconazole 150 MG 1 tablet Orally every 72 hours Aug, Active One touch ultra blue 1 strip subcutaneously bid for 30 days Active HydrOXYzine HCl 25 MG 1 tablet four times a day Orally QID for 30 Day s Active May Have - XXL Depends DX R32, N39.46 Six times daily as ne eded for 30 Days Feb, Active Temazepam 15 MG 1 capsule at bedtime as needed Orally Once a day for 30 days Active Depakote ER 500 MG 1 tablet Orally twice a day for 30 Days Active HydrOXYzine HCl 50 MG 1 tablet as needed Orally before bedtime for 30 days Active Pepcid 40 MG 1 tablet at bedtime Orally bid for 30 day(s) Aug, Active PROCEDURES No Information RESULTS No Results REASON FOR VISIT RESCHEDULE PROCEDURE MEDICAL (GENERAL) HISTORY Type Description Date Medical History Anemia Medical History Lymphedema Medical History N5LD-bi Insulin Medical History HTN Medical History Hypothyroidism Medical History H/o seizures Medical History Constipation Medical History CHF-none on echo 05/2019 Medical History Suicidal Ideation 07/2019 Surgical History No Surgical history information Hospitalization History suicide attempt c drug overdose at [facility] 2013 Hospitalization History Gastroparesis, hypoglycemia, gastroenteritis, & biliary colic @ [facility] 2017 Goals Section No Information Health Concerns No Information MEDICAL EQUIPMENT No Information MENTAL STATUS No Information FUNCTIONAL STATUS No Information ASSESSMENTS No Information PLAN OF TREATMENT Medication Medication Name Sig Start Date Stop Date MetFORMIN HCl ER 500 MG 1 tablet with evening meal Orally Once a day Alogliptin Benzoate 25 MG 1 tab Orally Daily Basaglar KwikPen 100 UNIT/ML 55 units at bedtime Subcutaneous be fore bedtime Diclofenac Sodium 1 % 2 pumps to affected area Tra nsdermal every 6 hours as needed Ultra Thin Pen [place] 31G X 5 MM as directed DX E11.9 before be dtime Celebrex 100 MG 1 capsule with food Orally Once a day Tizanidine HCl 4 MG 1 tablet as needed Orally three times daily as needed Lidocaine HCl 4 % 1 application, shoulder, kne e, buttock as needed Externally Three times a day Mapap 500 MG 2 capsule as needed Orally every 8 hrs Next Appt Details Provider Name:Butch Donaldson, 2020-10-22 09:00:00 AM, [address] [place] [address], [phone], Provider Name:Melissa Carlisle, 2020-11-05 02 :15:00 PM, [address] [place] [address], [phone], Provider Name:Homa Back, 01-15 10:45:00 AM, [facility] [place], [phone], Insurance Providers Payer Name Payer Address Payer Phone Insured Name Patient Relati onship to Insured Coverage Start Date Coverage End Date [facility] [employer] [facility] [address] [facility] [phone] KAIN RUIZ self
--- OUTSIDE RECORDS SUMMARY | 2020-10-16 15:52 | CCD ---
Author Author [facility] Organization [facility] Address Unknown Phone Unavailable Care Team Providers Care Party Plan Sales Director Name Role Phone Homa Back Unavailable PROBLEMS Type Condition ICD9-CM Code [id number] Code Onset Dates Condition S tatus SNOMED Code Notes Problem Congestive heart failure, [place] KIMBLE class 1, unspecified congestive heart failure type I50.9 Active 76605233 Problem Anemia, unspecified type D64.9 Active 4227951 00 Problem Debilitated R53.81 Active 89717965 Problem Constipation, unspecified constipation type K59.00 Active 91615346 Problem Seizures R56.9 Active 37915683 Problem Other chronic pain G89.29 Active 32525293 Problem Sciatica of left side M54.32 Active 2064641317 63665 Problem Essential hypertension I10 Active 64723383 Problem residential current use of insulin Z79.4 Active 849905688 Problem Cervical cancer screening Z12.4 Active 992062 001 Problem Breast cancer screening Z12.39 Active 55050253 1 Problem Morbid (severe) obesity due to excess calories E66 .01 Active 34658159235612 Problem Body mass index (BMI) of 50-59.9 in adult Z68.43 Active 588437428 Problem Candidiasis B37.9 Active 01427051 Problem Post-traumatic osteoarthritis of left knee M17.32 Active 825252573 Problem PMB (postmenopausal bleeding) N95.0 Active 76 408233 Problem Postmenopausal vaginal bleeding N95.0 Active 07441133 Problem DDD (degenerative disc disease), lumbar M51.36 Active 06294510 Problem Type 2 diabetes mellitus with hyperglycemia E11.65 Active 114569505310723 Problem Acquired hypothyroidism E03.9 Active 15403322 2 Problem Sacroiliitis, not elsewhere classified M46.1 A ctive 741638491 Problem Lymphedema I89.0 Active 098981119 Problem Type 2 diabetes mellitus without complications E11 .9 Active 880502197 Problem Mixed stress and urge urinary incontinence N39.46 Active 324622101 Problem Falls frequently R29.6 Active 785709056 Problem Incontinence in female R32 Active 03913389 Problem Hypoglycemia E16.2 Active 265554473 ALLERGIES Allergen (clinical drug ingredient) Drug/Non Drug Allergy do cumented on EMR Reaction Allergy Type Onset Date Status shellfish Anaphylaxis Non Drug Allergy Active quetiapine Quetiapine Fumarate([place] Code:[address]-67) seizures Adolfo g Allergy Active hydrolyzed corn oil Diarrhea Non Drug Allergy Active atorvastatin Atorvastatin Calcium([facility] Code:[address] -98) elevates liver enzymes Drug Allergy Active ibuprofen Ibuprofen([facility] Code:[address]-80) upset stomach Drug Aller gy Active ENCOUNTERS from 1960 to 2020-10-11 Encounter Location Date Provider Diagnosis [address] [address] Sep, Homa Nazanin Type 2 diabetes mellitus with hyperglyce diana E11.65 ; Cough R05 and Fall, subsequent encounter W19.XXXD IMMUNIZATIONS No Information SOCIAL HISTORY Tobacco Use: Social History Observation Description Date Details (start date - stop date) Never Smoker Sex Assigned At : Social History Observation Description Sex Assigned At Unknown Language: Question Answer Notes Languages spoken: Pashto Alcohol Screening: Question Answer Notes Did you have a drink containing alcohol in the past year? No Points 0 Interpretation Negative Tobacco Use: Question Answer Notes Are you a: never smoker REASON FOR REFERRAL No Information VITAL SIGNS Weight 277 lbs Sep, Height 61 in Sep, BMI 52.33 kg/m2 Sep, Heart Rate 116 /min Sep, Respiratory Rate 20 /min Sep, Temperature 97.5 degrees Fahrenheit Sep, Oximetry 97 Sep, Blood pressure systolic 120 mm Hg Sep, Blood pressure diastolic 80 mm Hg Sep, MEDICATIONS Medication SIG (Take, Route, Frequency, Duration) [...] Active Chux 1pad to bed/couch/chair topically bid January, Active Oxybutynin Chloride 5 MG 1 tablet Orally Twice a day 2019 Active Celebrex 100 MG 1 capsule with food Orally Once a day Active Ultra Thin Pen [place] 31G X 5 MM as directed DX [...] Orally QID for 30 Day s Active January Have - XXL Depends DX R32, N39.46 [...] day(s) Aug, Active PROCEDURES No Information RESULTS Component Value Reference Range RESPIRATORY PANEL Reviewed date:10/01/2020 15:58:28 Interpretation: Performing Lab:[facility], [facility] [id number] , ,[place] [address] RESPIRATORY PANEL This respiratory PCR panel detects Influ jaziel A H1, H3 and RESPIRATORY PANEL 2009 H1 viruses, Influenza B virus, Respiratory Syncytial Virus, RESPIRATORY PANEL Human metapneumovirus, Parai nfluenza virus 1, 2, 3 and 4, Adenovirus, RESPIRATORY PANEL Rhinovirus/Enterovirus, Diomedes navirus HKU1, NL63, OC43, 229E and RESPIRATORY PANEL SARS-CoV-2 (COVID 19), Borde tella pertussis, Bordetella parapertussis, RESPIRATORY PANEL Mycoplasma pneumoniae and Chlamydia pneu moniae. RESPIRATORY PANEL RESPIRATORY PANEL NEGATIVE by MULTIPLEXED NUCLEIC ACID PCR RESPIRATORY PANEL SARS-CoV-2 (COVID 19) NEGATIVE - SARS-CoV-2 (COVID19) RESPIRATORY PANEL REASON FOR VISIT 2 MONTH MEDICAL (GENERAL) HISTORY Type Description Date Medical History Anemia Medical History Lymphedema Medical History [id number] Insulin Medical History HTN Medical History Hypothyroidism Medical History H/o seizures Medical History Constipation Medical History CHF-none on echo 05/2019 Medical History Suicidal Ideation 07/2019 Surgical History No Surgical history information Hospitalization History suicide attempt c drug overdose at [facility] 2013 Hospitalization History Gastroparesis, hypoglycemia, gastroenteritis, & biliary colic @ [facility] 2017 Goals Section No Information Health Concerns No Information MEDICAL EQUIPMENT No Information MENTAL STATUS No Information FUNCTIONAL STATUS No Information ASSESSMENTS Encounter Date Diagnosis Assessment Notes Treatment Notes Treatm ent Clinical Notes Sep, Type 2 diabetes mellitus with hyperglycemia (ICD -10 - E11.65) No change in Regimen Sep, Cough (ICD-10 - R05) productive phlegm/green now x 3D Sep, Fall, subsequent encounter (ICD-10 - W19.XXXD) NO new falls PLAN OF TREATMENT Medication Medication Name Sig [...] 6 hours as needed Ultra Thin Pen Goodman 31G X 5 MM as directed DX [...] capsule as needed Orally every 8 hrs Treatment Notes Assessment Notes Clinical Notes Type 2 diabetes mellitus with hyperglycemia No change in Regimen Cough productive phlegm/gr een now x 3D Fall, subsequent encounter NO new falls Treatment Notes Test Name Order Date Comprehensive Metabolic Profile (CMP) 2020-10-11 HEMOGLOBIN A1c 2020-10-11 CBC with Differential 2020-10-11 Next Appt Details 3 Months f/u c SS, BW today Reason: Provider Name:Butch Donaldson, 2020-10-22 09:00:00 AM, [address] [place] [address], [phone], Provider Name:Melissa Carlisle, 2020-11-05 02 :15:00 PM, [address] [place] [address], [phone], Provider Name:Homa Back, 01-15 10:45:00 AM, [address] [place], [address], Insurance Providers Payer Name Payer Address Payer Phone Insured Name Patient Relati onship to Insured Coverage Start Date Coverage End Date [facility] COMMUNITY PLAN [facility] [address] [facility] [phone] KAIN RUIZ self
--- OUTSIDE RECORDS SUMMARY | 2020-10-16 15:52 | CCD ---
Author Author [facility] Organization [facility] Address Unknown Phone Unavailable Care Team Providers Care Food Selector Name Role Phone Homa Back Unavailable PROBLEMS Type Condition ICD9-CM Code [id number] Code Onset Dates Condition S tatus SNOMED Code Notes Problem Congestive heart failure, [place] KIMBLE class 1, unspecified congestive heart failure type I50.9 Active 59228532 Problem Anemia, unspecified type D64.9 Active 3021629 00 Problem Debilitated R53.81 Active 27607798 Problem Constipation, unspecified constipation type K59.00 Active 72052599 Problem Seizures R56.9 Active 46198482 Problem Other chronic pain G89.29 Active 31471973 Problem Sciatica of left side M54.32 Active 9637792523 10748 Problem Essential hypertension I10 Active 15114420 Problem [facility] current use of insulin Z79.4 Active 526978966 Problem Cervical cancer screening Z12.4 Active 979634 001 Problem Breast cancer screening Z12.39 Active 05745149 1 Problem Morbid (severe) obesity due to excess calories E66 .01 Active 50627567429444 Problem Body mass index (BMI) of 50-59.9 in adult Z68.43 Active 516553202 Problem Candidiasis B37.9 Active 84917206 Problem Post-traumatic osteoarthritis of left knee M17.32 Active 560231821 Problem PMB (postmenopausal bleeding) N95.0 Active 76 401211 Problem Postmenopausal vaginal bleeding N95.0 Active 23555835 Problem DDD (degenerative disc disease), lumbar M51.36 Active 42752521 Problem Type 2 diabetes mellitus with hyperglycemia E11.65 Active 863599114121255 Problem Acquired hypothyroidism E03.9 Active 20945129 2 Problem Sacroiliitis, not elsewhere classified M46.1 A ctive 225535489 Problem Lymphedema I89.0 Active 177478840 Problem Type 2 diabetes mellitus without complications E11 .9 Active 527651767 Problem Mixed stress and urge urinary incontinence N39.46 Active 451823740 Problem Falls frequently R29.6 Active 458381037 Problem Incontinence in female R32 Active 75204058 Problem Hypoglycemia E16.2 Active 387087176 ALLERGIES Allergen (clinical drug ingredient) Drug/Non Drug Allergy do cumented on EMR Reaction Allergy Type Onset Date Status shellfish Anaphylaxis Non Drug Allergy Active quetiapine Quetiapine Fumarate([facility] Code:[address]-44) seizures Adolfo g Allergy Active hydrolyzed corn oil Diarrhea Non Drug Allergy Active atorvastatin Atorvastatin Calcium([facility] Code:[address] -98) elevates liver enzymes Drug Allergy Active ibuprofen Ibuprofen([facility] Code:[address]-48) upset stomach Drug Aller gy Active ENCOUNTERS from 1960 to 2020-09-24 Encounter Location Date Provider Diagnosis [address] [address] Sep[facility] IMMUNIZATIONS No Information SOCIAL HISTORY Tobacco Use: Social History Observation Description Date Details (start date - stop date) Never Smoker Sex Assigned At : Social History Observation Description Sex Assigned At Unknown Language: Question Answer Notes Languages spoken: Australian Alcohol Screening: Question Answer Notes Did you have a drink containing alcohol in the past year? No Points 0 Interpretation Negative Tobacco Use: Question Answer Notes Are you a: never smoker REASON FOR REFERRAL No Information VITAL SIGNS No information MEDICATIONS Medication SIG (Take, Route, Frequency, Duration) Notes Start Da te End Date Status Mapap 500 MG 2 capsule as needed Orally every 8 hrs Mar Active Atorvastatin Calcium 40 MG 1 tablet Orally Once a day for 30 day(s) Active MetFORMIN HCl ER 500 MG 1 tablet with evening meal Orally Once a day Active BusPIRone HCl 15 MG TAKE ONE TABLET BY MOUTH @8A M and TAKE ONE TABLET @8PM Orally bid for 28 days Not-Adeel g Diclofenac Sodium 1 % 2 pumps to affected area Tra nsdermal every 6 hours as needed Apr, Active Ultra Thin Pen [place] 31G X 5 MM as directed DX E11.9 before be dtime Dec, Active HydrOXYzine HCl 50 MG 1 tablet as needed Orally before bedtime for 30 days Active Pulmicort Flexhaler 180 MCG/ACT 1 puff Inhalation Twice a day Active Meloxicam 7.5 MG 1 tablet Orally bid Not-Taking Losartan Potassium 50 MG 1 tablet Orally Once a day for 28 Active Celebrex 100 MG 1 capsule with food Orally Once a day 2019 Active Basaglar KwikPen 100 UNIT/ML 55 units at bedtime Subcutaneous be fore bedtime Active One touch ultra blue 1 strip subcutaneously bid for 30 days Active Aspirin 81 81 MG 1 tablet Orally Once a day Active Levothyroxine Sodium 200 MCG 1 tablet on an empty stom ach in the morning Orally Once a day for 30 Active Tizanidine HCl 4 MG 1 tablet as needed Orally three times daily as needed Dec, Active Lasix 40 MG 1 tablet Orally Daily Ac tive Fluconazole 150 MG 1 tablet Orally every 72 hours Aug, Active Lidocaine HCl 4 % 1 application, shoulder, kne e, buttock as needed Externally Three times a day Dec, Active Alogliptin Benzoate 25 mg 1 tab Orally Daily for 30 Days Active HydrOXYzine HCl 25 MG 1 tablet four times a day Orally QID for 30 Day s Active May Have - XXL Depends DX R32, N39.46 Six times daily as ne eded for 30 Days Feb, Active Omeprazole 40 MG 1 capsule Orally twice a day for 30 days Active Depakote ER 500 MG 1 tablet Orally twice a day for 30 Days Active Pepcid 40 MG 1 tablet at bedtime Orally bid for 30 day(s) Aug, Active Gabapentin 400 MG 1 capsule Orally three times daily 2019 Active Nystatin 450350 UNIT/GM 1 application under pannus E xternally Twice a day for 30 days Jun, Not-Taking Temazepam 15 MG 1 capsule at bedtime as needed Orally Once a day for 30 days Active Ventolin HFA 108 (90 Base) MCG/ACT 2 puffs as needed I nhalation every 4 hours as needed Active Oxybutynin Chloride 5 MG 1 tablet Orally Twice a day 2019 Active Nystatin 722117 UNIT/ML 5 mL Orally Swish and swallow 4 time s a day for 10 days January, Not-Taking Ondansetron HCl 4 MG 1 tablet Orally q6h prn Not-Taking TraZODone HCl 150 MG 1 tablet at bedtime Orally Once a day for 30 day (s) Active Tramadol HCl 50 MG 1 tablet q12 hours as needed Orally bid prn mdd 2 tabs for 14 day(s) Not-Taking Duloxetine HCl 60 MG 1 capsule Orally Once a day for 30 day(s) Oct, Not-Taking Potassium Chloride ER 10 MEQ 1 tablet with food Orally Daily for 30 D ays Active Valproic Acid 250 MG 2 caps orally Twice daily at 800 and 1700 for 28 days Active Chux 1pad to bed/couch/chair topically bid 07 February, 2 020 Active PROCEDURES No Information RESULTS No Results REASON FOR VISIT ER Visit [facility] 09/19; Hyperglycemia due to Type 2 diabetes MEDICAL (GENERAL) HISTORY Type Description Date Medical History Anemia Medical History Lymphedema Medical History [id number] Insulin Medical History HTN Medical History Hypothyroidism Medical History H/o seizures Medical History Constipation Medical History CHF-none on echo 05/2019 Medical History Suicidal Ideation 07/2019 Surgical History No Surgical history information Hospitalization History suicide attempt c drug overdose at [facility] 2013 Hospitalization History Gastroparesis, hypoglycemia, gastroenteritis, & biliary colic @ [facility] 2017 Goals Section No Information Health Concerns No Information MEDICAL EQUIPMENT No Information MENTAL STATUS No Information FUNCTIONAL STATUS No Information ASSESSMENTS No Information PLAN OF TREATMENT Medication Medication Name Sig Start Date Stop Date Alogliptin Benzoate 25 mg 1 tab Orally Daily for 30 Days Levothyroxine Sodium 200 MCG 1 tablet on an empty stom ach in the morning Orally Once a day for 30 Fluconazole 150 MG 1 tablet Orally every 72 hours Aug, Next Appt Details Provider Name:Homa Back, 10-01 10:45:00 AM, [address] [place], [address], Provider Name:Rajinder Cheema, 2020-10-10 02:00:00 PM, [address] [place], [address], Insurance Providers Payer Name Payer Address Payer Phone Insured Name Patient Relati onship to Insured Coverage Start Date Coverage End Date [facility] COMMUN[facility] PLAN [facility] [address] [facility] [phone] KAIN RUIZ self
--- OUTSIDE RECORDS SUMMARY | 2020-10-16 15:52 | CCD ---
Author Author [facility] Organization [facility] Address Unknown Phone Unavailable Care Team Providers Care Employee Relations Director Name Role Phone Homa Back Unavailable PROBLEMS Type Condition ICD9-CM Code [id number] Code Onset Dates Condition S tatus SNOMED Code Notes Problem Congestive heart failure, [place] KIMBLE class 1, unspecified congestive heart failure type I50.9 Active 54274319 Problem Anemia, unspecified type D64.9 Active 4705952 00 Problem Debilitated R53.81 Active 22236626 Problem Constipation, unspecified constipation type K59.00 Active 68267671 Problem Seizures R56.9 Active 96959242 Problem Other chronic pain G89.29 Active 13718189 Problem Sciatica of left side M54.32 Active 3279298727 28484 Problem Essential hypertension I10 Active 53297364 Problem [facility] current use of insulin Z79.4 Active 953926234 Problem Cervical cancer screening Z12.4 Active 635347 001 Problem Breast cancer screening Z12.39 Active 43482770 1 Problem Morbid (severe) obesity due to excess calories E66 .01 Active 70274813379347 Problem Body mass index (BMI) of 50-59.9 in adult Z68.43 Active 835022977 Problem Candidiasis B37.9 Active 62746522 Problem Post-traumatic osteoarthritis of left knee M17.32 Active 653152290 Problem PMB (postmenopausal bleeding) N95.0 Active 76 194929 Problem Postmenopausal vaginal bleeding N95.0 Active 21481302 Problem DDD (degenerative disc disease), lumbar M51.36 Active 88938017 Problem Type 2 diabetes mellitus with hyperglycemia E11.65 Active 797746153830949 Problem Acquired hypothyroidism E03.9 Active 11985201 2 Problem Sacroiliitis, not elsewhere classified M46.1 A ctive 075125832 Problem Lymphedema I89.0 Active 905959862 Problem Type 2 diabetes mellitus without complications E11 .9 Active 028150816 Problem Mixed stress and urge urinary incontinence N39.46 Active 189050251 Problem Falls frequently R29.6 Active 830052205 Problem Incontinence in female R32 Active 58145736 Problem Hypoglycemia E16.2 Active 554382767 ALLERGIES Allergen (clinical drug ingredient) Drug/Non Drug Allergy do cumented on EMR Reaction Allergy Type Onset Date Status shellfish Anaphylaxis Non Drug Allergy Active quetiapine Quetiapine Fumarate([facility] Code:[address]-31) seizures Adolfo g Allergy Active hydrolyzed corn oil Diarrhea Non Drug Allergy Active atorvastatin Atorvastatin Calcium([facility] Code:[address] -98) elevates liver enzymes Drug Allergy Active ibuprofen Ibuprofen([facility] Code:[address]-33) upset stomach Drug Aller gy Active ENCOUNTERS from 1960 to 2020-09-27 Encounter Location Date Provider Diagnosis [address] [address] Sep, [facility] IMMUNIZATIONS No Information SOCIAL HISTORY Tobacco Use: Social History Observation Description Date Details (start date - stop date) Never Smoker Sex Assigned At : Social History Observation Description Sex Assigned At Unknown Language: Question Answer Notes Languages spoken: Tunisian Alcohol Screening: Question Answer Notes Did you have a drink containing alcohol in the past year? No Points 0 Interpretation Negative Tobacco Use: Question Answer Notes Are you a: never smoker REASON FOR REFERRAL No Information VITAL SIGNS No information MEDICATIONS Medication SIG (Take, Route, Frequency, Duration) Notes Start Da te End Date Status BusPIRone HCl 15 MG TAKE ONE TABLET BY MOUTH @8A M and TAKE ONE TABLET @8PM Orally bid for 28 days Not-Takin g Diclofenac Sodium 1 % 2 pumps to affected area Tra nsdermal every 6 hours as needed Apr, Active MetFORMIN HCl ER 500 MG 1 tablet with evening meal Orally Once a day Active Ondansetron HCl 4 MG 1 tablet Orally q6h prn Not-Taking Ventolin HFA 108 (90 Base) MCG/ACT 2 puffs as needed I nhalation every 4 hours as needed Active Ultra Thin Pen [place] 31G X 5 MM as directed DX E11.9 before be dtime Dec, Active Losartan Potassium 50 MG 1 tablet Orally Once a day for 28 Active Pulmicort Flexhaler 180 MCG/ACT 1 puff Inhalation Twice a day Active Meloxicam 7.5 MG 1 tablet Orally bid Not-Taking Mapap 500 MG 2 capsule as needed Orally every 8 hrs Mar Active Celebrex 100 MG 1 capsule with food Orally Once a day 2019 Active Basaglar KwikPen 100 UNIT/ML 55 units at bedtime Subcutaneous be fore bedtime Active One touch ultra blue 1 strip subcutaneously bid for 30 days Active Aspirin 81 81 MG 1 tablet Orally Once a day Active HydrOXYzine HCl 50 MG 1 tablet as needed Orally before bedtime for 30 days Active Tizanidine HCl 4 [...] twice a day for 30 days Active Atorvastatin Calcium 40 MG 1 tablet Orally Once a day for 30 day(s) Active Temazepam 15 MG 1 capsule at bedtime as needed Orally Once a day for 30 days Active Gabapentin 400 MG 1 capsule Orally three times daily 2019 Active Nystatin 273721 UNIT/GM 1 application under pannus E xternally Twice a day for 30 days Jun, Not-Taking Levothyroxine Sodium 200 MCG 1 tablet on an empty stom ach in the morning Orally Once a day for 30 Active Pepcid 40 MG 1 tablet at bedtime Orally bid for 30 day(s) Aug, Active Oxybutynin Chloride 5 MG 1 tablet Orally Twice a day 2019 Active Nystatin 887193 UNIT/ML 5 mL Orally Swish and swallow 4 time s a day for 10 days January, Not-Taking Depakote ER 500 MG 1 tablet Orally twice a day for 30 Days Active TraZODone HCl 150 MG 1 tablet [...] Information RESULTS No Results REASON FOR VISIT Atorvastatin Calcium 40 MG MEDICAL (GENERAL) HISTORY Type Description Date Medical History Anemia Medical History Lymphedema Medical History [id number] Insulin Medical History HTN Medical History Hypothyroidism Medical History H/o seizures Medical History Constipation Medical History CHF-none on echo 05/2019 Medical History Suicidal Ideation 07/2019 Surgical History No Surgical history information Hospitalization History suicide attempt c drug overdose at [place] [facility] 2013 Hospitalization History Gastroparesis, hypoglycemia, gastroenteritis, & biliary colic @ [facility] 2017 Goals Section No Information Health Concerns No Information MEDICAL EQUIPMENT No Information MENTAL STATUS No Information FUNCTIONAL STATUS No Information ASSESSMENTS No Information PLAN OF TREATMENT Medication Medication Name Sig Start Date Stop Date Levothyroxine Sodium 200 MCG 1 tablet on an empty stom ach in the morning Orally Once a day for 30 Atorvastatin Calcium 40 MG 1 tablet Orally Once a day for 30 day (s) Fluconazole 150 MG 1 tablet Orally every 72 hours Aug, Alogliptin Benzoate 25 mg 1 tab Orally Daily for 30 Days Next Appt Details Provider Name:Homa Back, 10-01 10:45:00 AM, [address] [place], [address], Provider Name:Rajinder Cheema, 2020-10-10 02:00:00 PM, [address] [place], [address], Insurance Providers Payer Name Payer Address Payer Phone Insured Name Patient Relati onship to Insured Coverage Start Date Coverage End Date [facility] COMMUNITY PLAN [facility] [address] [facility] [phone] KAIN RUIZ self
--- OUTSIDE RECORDS SUMMARY | 2020-10-16 15:54 | CCD ---
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[employer] [place] Name Role Phone Jori HERNANDEZ DPM Unavailable Unavailable Jori HERNANDEZ DPM Unavailable Unavailable Jori HERNANDEZ DPM Unavailable Unavailable Jori HERNANDEZ DPM Unavailable Unavailable Jori HERNANDEZ DPM Unavailable Unavailable Jori HERNANDEZ DPM Unavailable Unavailable Jori HERNANDEZ DPM Unavailable Unavailable Jori HERNANDEZ DPM Unavailable Unavailable Jori HERNANDEZ DPM Unavailable Unavailable Jori HERNANDEZ DPM Unavailable Unavailable Jori HERNANDEZ DPM Unavailable Unavailable Jori HERNANDEZ DPM Unavailable Unavailable Jori HERNANDEZ DPM Unavailable Unavailable Jori HERNANDEZ DPM Unavailable Unavailable Jori HERNANDEZ DPM Unavailable Unavailable Jori HERNANDEZ DPM Unavailable Unavailable Jori HERNANDEZ DPM Unavailable Unavailable MAJAK, R MADIHA DPM Unavailable Unavailable MAJAK, R MADIHA DPM Unavailable Unavailable MAJAK, R MADIHA DPM Unavailable Unavailable MAJAK, R MADIHA DPM Unavailable Unavailable MAJAK, R MADIHA DPM Unavailable Unavailable MAJAK, R MADIHA DPM Unavailable Unavailable MAJAK, R MADIHA DPM Unavailable Unavailable MAJAK, R MADIHA DPM Unavailable Unavailable MAJAK, R MADIHA DPM Unavailable Unavailable MAJAK, R MADIAH DPM Unavailable Unavailable MAJAK, R MADIHA DPM Unavailable Unavailable MAJAK, R MADIHA DPM Unavailable Unavailable MAJAK, R MADIHA DPM Unavailable Unavailable [facility] Unavailable Unavailable Re-disclosure Warning The records that you are about to access may contain information from federally-assisted alcohol or drug abuse programs. If such information is present, then the following federally mandated warning applies: This information has been disclosed to you from records protected by federal confidentiality rules (42 CFR part 2). The federal rules prohibit you from making any further disclosure of this information unless further disclosure is expressly permitted by the written consent of the person to whom it pertains or as otherwise permitted by 42 CFR part 2. A general authorization for the release of medical or other information is NOT sufficient for this purpose. The Federal rules restrict any use of the information to criminally investigate or prosecute any alcohol or drug abuse patient.The records that you are about to access may contain highly sensitive health information, the redisclosure of which is protected by Article 27-F of the [facility] Public Health law. If you continue you may have access to information: Regarding HIV / AIDS; Provided by facilities licensed or operated by the [facility] Office of Mental Health; or Provided by the [facility] Office for People With Developmental Disabilities. If such information is present, then the following [facility] mandated warning applies: This information has been disclosed to you from confidential records which are protected by state law. State law prohibits you from making any further disclosure of this information without the specific written consent of the person to whom it pertains, or as otherwise permitted by law. Any unauthorized further disclosure in violation of state law may result in a fine or chcf sentence or both. A general authorization for the release of medical or other information is NOT sufficient authorization for further disc losure. Allergies and Adverse Reactions Type Description Substance Reaction Status Data Source(s ) Drug allergy Ibuprofen Ibuprofen upset stomach Active eCW1 ([facility]) Drug allergy Atorvastatin Calcium atorvastatin elevates liver enzymes Active eCW1 ([facility]) Drug allergy Quetiapine Fumarate quetiapine seizures Active eCW 1 ([facility]) shellfish shellfish shellfish Anaphylaxis Active eCW1 ([facility]) hydrolyzed corn oil hydrolyzed corn oil hydrolyzed corn oil Diarrhea Active eCW1 ([facility]) shellfish shellfish shellfish Anaphylaxis Active eCW1 ([facility]) hydrolyzed corn oil hydrolyzed corn oil hydrolyzed corn oil Diarrhea Active eCW1 ([facility]) shellfish shellfish shellfish Anaphylaxis Active eCW1 ([facility]) hydrolyzed corn oil hydrolyzed corn oil hydrolyzed corn oil Diarrhea Active eCW1 ([facility]) Family History Family Member Name Family Member Gender Family Member Status Date o f Status Description Data Source(s) Unknown Male Problem MEDENT ([facility] () Unknown Female Problem MEDENT ([facility]) Encounters Encounter Providers Location Date Indications Data Source(s ) [place] [address] [facility] [place] [address] 10/01/2020 12:00:00 AM EST eCW1 ([facility]) Unknown [address] [facility] [place] [address] 09/26/2020 12:00:00 AM EST eCW1 ([facility]) Unknown [address] [facility] [place] [address] 09/23/2020 12:00:00 AM EST eCW1 ([facility]) Unknown [address] [facility] [place] [address] 09/23/2020 12:00:00 AM EST eCW1 ([facility]) Unknown [address] [facility] [place] [address] 09/16/2020 12:00:00 AM EST eCW1 ([facility]) Unknown [address] [facility] [place] [address] 09/10/2020 12:00:00 AM EST eCW1 ([facility]) Outpatient [address] [facility] [address] 09/09/2020 12:00:00 AM EST eCW1 ([facility]) Unknown [address] [facility] [address] 09/09/2020 12:00:00 AM EST eCW1 ([facility]) Unknown [address] [facility] [address] 09/05/2020 12:00:00 AM EST eCW1 ([facility]) Unknown [address] [facility] [address] 09/04/2020 12:00:00 AM EST eCW1 ([facility]) Unknown [address] [facility] [address] 08/22/2020 12:00:00 AM EST eCW1 ([facility]) Unknown [address] [facility] [address] 08/13/2020 12:00:00 AM EST eCW1 ([facility]) Unknown [address] [facility] [address] 08/08/2020 12:00:00 AM EST eCW1 ([facility]) Outpatient [address] [facility] [address] 07/30/2020 12:00:00 AM EST eCW1 ([facility]) Unknown [address] [facility] [address] 07/23/2020 12:00:00 AM EST eCW1 ([facility]) Outpatient [address] [facility] [address] 07/18/2020 12:00:00 AM EDT eCW1 ([facility]) Unknown [address] [facility] [address] 07/18/2020 12:00:00 AM EDT eCW1 ([facility]) Unknown [address] [facility] [place] [address] 07/17/2020 12:00:00 AM EDT eCW1 ([facility]) Outpatient [address] [facility] [address] 07/10/2020 12:00:00 AM EDT [facility]CW1 ([facility]) Unknown [address] [facility] [address] 07/05/2020 12:00:00 AM EDT eCW1 ([facility]) Unknown [address] [facility] [address] 07/03/2020 12:00:00 AM EDT eCW1 [facility] Outpatient Attender: MADIHA HERNANDEZ [facility] 04/20 10:45:00 AM EDT MEDENT ([facility] [place] [address] [facility] Y [address] 04/16/2020 12:00:00 AM EDT eCW1 ([facility]) Unknown [address] [facility] [address] 04/11/2020 12:00:00 AM EDT eCW1 ([facility]) Unknown [address] [facility] [address] 04/03/2020 12:00:00 AM EDT eCW1 ([facility]) Outpatient [address] [facility] [address] 04/02/2020 12:00:00 AM EDT eCW1 ([facility]) Unknown [address] [facility] [address] 04/01/2020 12:00:00 AM EDT eCW1 ([facility]) Outpatient [address] [facility] Y [address] 03/28/2020 12:00:00 AM EDT eCW1 ([facility]) Unknown [address] [facility] [address] 03/20/2020 12:00:00 AM EDT eCW1 ([facility]) [facility] [address] [place] [address] 03/05/2020 12:00:00 AM EDT eCW1 ([facility]) Unknown [address] [facility] [address] 03/04/2020 12:00:00 AM EDT eCW1 ([facility]) [place] [address] [facility] [address] 03/04/2020 12:00:00 AM EDT eCW1 ([facility]) Unknown [address] [facility] [address] 03/01/2020 12:00:00 AM EDT eCW1 [facility]/27/2020 07:33:08 PM E DT [facility] Unknown [address] [facility] [address] 02/22/2020 12:00:00 AM EDT eCW1 ([facility]) Unknown [address] [facility] [address] 02/16/2020 12:00:00 AM EDT [facility]CW[facility] Outpatient [address] [facility] [place] [address] 02/15/2020 12:00:00 AM EDT eCW1 ([facility]) [facility] [place] [address] [facility] [place] [address] 02/14/2020 12:00:00 AM EDT eCW1 ([facility] [place] [address] [facility] [address] 02/13/2020 12:00:00 AM EDT eCW1 ([facility] [place] [address] [facility] [place] [address] 02/08/2020 12:00:00 AM EDT eCW1 ([facility]) [facility] [place] [address] [facility] [place] [address] 02/08/2020 12:00:00 AM EDT eCW1 ([facility]) [facility] [address] [facility] [address] 02/06/2020 12:00:00 AM EDT eCW1 ([facility]) [facility] [address] [facility] [address] 02/06/2020 12:00:00 AM EDT eCW1 ([facility]) [facility] [address] [facility] [address] 02/02/2020 12:00:00 AM EDT eCW1 ([facility]) [facility] [address] [facility] [address] 01/31/2020 12:00:00 AM EDT eCW1 ([facility]) [facility] [address] [facility] [address] 01/29/2020 12:00:00 AM EDT eCW1 ([facility]) [facility] [address] [place] [address], [place] [address] 01/25/2020 12:00:00 AM EDT eCW1 ([facility]) [facility] [address] [facility] [address] 01/24/2020 12:00:00 AM EDT eCW1 ([facility]) [facility] [address] [facility] [address] 01/18/2020 12:00:00 AM EDT eCW1 ([facility]) [facility] [address] [place] [address], [place] [address] 01/18/2020 12:00:00 AM EDT eCW1 ([facility]) [facility] [address] [place] [address], [place] [address] 01/18/2020 12:00:00 AM EDT eCW1 ([facility]) [facility] [address] [place] [address], [place] [address] 01/17/2020 12:00:00 AM EDT eCW1 ([facility]) [facility] [address] [facility] [place] [address] 01/16/2020 12:00:00 AM EDT eCW1 ([facility]) [facility] [address] [facility] [place] [address] 01/15/2020 12:00:00 AM EDT eCW1 ([facility]) [facility] [address] [place] [address] 12/20/2019 12:00:00 AM EDT eCW1 ([facility]) [facility] [address] [place] [address] [place] [address] 12/12/2019 12:00:00 AM EDT eCW1 ([facility]) [facility] [address] [place] [address] 11/30/2019 12:00:00 AM EDT eCW1 ([facility]) [facility] [address] [place] [address] N [place] [address] 11/21/2019 12:00:00 AM EST eCW1 ([facility]) [facility] [address] [place] [address] N [place] [address] 11/21/2019 12:00:00 AM EST eCW1 ([facility]) [facility] [address] [place] [address] 11/21/2019 12:00:00 AM EST eCW1 ([facility]) [facility] [address] [place] [address] N [place] [address] 11/20/2019 12:00:00 AM EST eCW1 ([facility]) [facility] [address] [place] [address] Y [address] 11/16/2019 12:00:00 AM EST eCW1 ([facility]) [facility] [address] [place] [address] Y [address] 11/15/2019 12:00:00 AM EST eCW1 ([facility]) [facility] [address] [place] [address], [place] [address] 11/09/2019 12:00:00 AM EST eCW1 ([facility]) [facility] [address] [place] [address], [place] [address] 10/24/2019 12:00:00 AM EST eCW1 ([facility]) [facility] [address] [place] [address], [place] [address] 10/23/2019 12:00:00 AM EST eCW1 ([facility]) [facility] [address] [place] [address], [place] [address] 10/23/2019 12:00:00 AM EST eCW1 ([facility]) [facility] [address] [place] [address], [place] [address] 10/19/2019 12:00:00 AM EST eCW1 ([facility]) [address] [address] 10/18/2019 12:00:00 AM EST eCW1 ([facility]) [address] [address] 10/16/2019 12:00:00 AM EST eCW1 ([facility]) [facility] [address] [place] [address], [place] [address] 10/16/2019 12:00:00 AM EST eCW1 ([facility]) [facility] [address] [place] [address], [place] [address] 10/12/2019 12:00:00 AM EST eCW1 ([facility]) [address] [address] 10/12/2019 12:00:00 AM EST eCW1 ([facility]) [address] [address] 10/02/2019 12:00:00 AM EST eCW1 ([facility]) [address] [address] 09/28/2019 12:00:00 AM EST eCW1 ([facility]) [address] [address] 09/27/2019 12:00:00 AM EST eCW1 ([facility]) Outpatient 09/22/2019 05:38:00 AM EST [facility] [address] [address] 09/21/2019 12:00:00 AM EST eCW1 ([facility]) [address] [address] 09/07/2019 12:00:00 AM EST eCW1 ([facility]) [address] [address] 08/31/2019 12:00:00 AM EST eCW1 ([facility]) Medications Medication Brand Name Start Date Product Form Dose Route Admi nistrative Instructions Pharmacy Instructions Status Indications Reaction Description Data Source(s) Fluconazole 150 MG Oral Tablet Fluconazole 150 MG 09/09/2020 12:00: 00 AM EST 1.0 {tablet} active Fluconazole 150 MG eCW1 ([facility]) Fluconazole 150 MG Oral Tablet Fluconazole 150 MG 09/09/2020 12:00: 00 AM EST 1.0 {tablet} active Fluconazole 150 MG eCW1 ([facility]) Fluconazole 150 MG Oral Tablet Fluconazole 150 MG 09/09/2020 12:00: 00 AM EST 1.0 {tablet} active Fluconazole 150 MG eCW1 ([facility]) Fluconazole 150 MG Oral Tablet Fluconazole 150 MG 09/09/2020 12:00: 00 AM EST 1.0 {tablet} active Fluconazole 150 MG eCW1 ([facility]) Fluconazole 150 MG Oral Tablet Fluconazole 150 MG 09/09/2020 12:00: 00 AM EST 1.0 {tablet} active Fluconazole 150 MG eCW1 ([facility]) Fluconazole 150 MG Oral Tablet Fluconazole 150 MG 09/09/2020 12:00: 00 AM EST 1.0 {tablet} active Fluconazole 150 MG eCW1 ([facility]) Fluconazole 150 MG Oral Tablet Fluconazole 150 MG 09/09/2020 12:00: 00 AM EST 1.0 {tablet} active Fluconazole 150 MG eCW1 ([facility]) Fluconazole 150 MG Oral Tablet Fluconazole 150 MG 09/09/2020 12:00: 00 AM EST 1.0 {tablet} active Fluconazole 150 MG eCW1 ([facility]) celecoxib 100 MG Oral Capsule [Celebrex] Celebrex 100 MG Siobhan ebrex 100 MG 07/18/2020 12:00:00 AM EDT 1.0 {capsule_with_food} active Celebrex 100 MG eCW1 ([facility]) celecoxib 100 MG Oral Capsule [Celebrex] Celebrex 100 MG Siobhan ebrex 100 MG 07/18/2020 12:00:00 AM EDT 1.0 {capsule_with_food} active Celebrex 100 MG eCW1 ([facility]) celecoxib 100 MG Oral Capsule [Celebrex] Celebrex 100 MG Siobhan ebrex 100 MG 07/18/2020 12:00:00 AM EDT 1.0 {capsule_with_food} active Celebrex 100 MG eCW1 ([facility]) celecoxib 100 MG Oral Capsule [Celebrex] Celebrex 100 MG Siobhan ebrex 100 MG 07/18/2020 12:00:00 AM EDT 1.0 {capsule_with_food} active Celebrex 100 MG eCW1 ([facility]) celecoxib 100 MG Oral Capsule [Celebrex] Celebrex 100 MG Siobhan ebrex 100 MG 07/18/2020 12:00:00 AM EDT 1.0 {capsule_with_food} active Celebrex 100 MG eCW1 ([facility]) celecoxib 100 MG Oral Capsule [Celebrex] Celebrex 100 MG Siobhan ebrex 100 MG 07/18/2020 12:00:00 AM EDT 1.0 {capsule_with_food} active Celebrex 100 MG eCW1 ([facility]) celecoxib 100 MG Oral Capsule [Celebrex] Celebrex 100 MG Siobhan ebrex 100 MG 07/18/2020 12:00:00 AM EDT 1.0 {capsule_with_food} active Celebrex 100 MG eCW1 ([facility]) celecoxib 100 MG Oral Capsule [Celebrex] Celebrex 100 MG Siobhan ebrex 100 MG 07/18/2020 12:00:00 AM EDT 1.0 {capsule_with_food} active Celebrex 100 MG eCW1 ([facility]) celecoxib 100 MG Oral Capsule [Celebrex] Celebrex 100 MG Siobhan ebrex 100 MG 07/18/2020 12:00:00 AM EDT 1.0 {capsule_with_food} active Celebrex 100 MG eCW1 ([facility]) celecoxib 100 MG Oral Capsule [Celebrex] Celebrex 100 MG Siobhan ebrex 100 MG 07/18/2020 12:00:00 AM EDT 1.0 {capsule_with_food} active Celebrex 100 MG eCW1 ([facility]) celecoxib 100 MG Oral Capsule [Celebrex] Celebrex 100 MG Siobhan ebrex 100 MG 07/18/2020 12:00:00 AM EDT 1.0 {capsule_with_food} active Celebrex 100 MG eCW1 ([facility]) celecoxib 100 MG Oral Capsule [Celebrex] Celebrex 100 MG Siobhan ebrex 100 MG 07/18/2020 12:00:00 AM EDT 1.0 {capsule_with_food} active Celebrex 100 MG eCW1 ([facility]) celecoxib 100 MG Oral Capsule [Celebrex] Celebrex 100 MG Siobhan ebrex 100 MG 07/18/2020 12:00:00 AM EDT 1.0 {capsule_with_food} active Celebrex 100 MG eCW1 ([facility]) celecoxib 100 MG Oral Capsule [Celebrex] Celebrex 100 MG Siobhan ebrex 100 MG 07/18/2020 12:00:00 AM EDT 1.0 {capsule_with_food} active Celebrex 100 MG eCW1 ([facility]) celecoxib 100 MG Oral Capsule [Celebrex] Celebrex 100 MG Siobhan ebrex 100 MG 07/18/2020 12:00:00 AM EDT 1.0 {capsule_with_food} active Celebrex 100 MG eCW1 ([facility]) May Have - UNK 02/26/2020 12:00:00 AM EDT active May Have - eCW1 ([facility]) May Have - UNK 02/26/2020 12:00:00 AM EDT active May Have - eCW1 ([facility]) May Have - UNK 02/26/2020 12:00:00 AM EDT active May Have - eCW1 ([facility]) May Have - UNK 02/26/2020 12:00:00 AM EDT active May Have - eCW1 ([facility]) May Have - UNK 02/26/2020 12:00:00 AM EDT active May Have - eCW1 ([facility]) May Have - UNK 02/26/2020 12:00:00 AM EDT active May Have - eCW1 ([facility]) May Have - UNK 02/26/2020 12:00:00 AM EDT active May Have - eCW1 ([facility]) May Have - UNK 02/26/2020 12:00:00 AM EDT active May Have - eCW1 ([facility]) May Have - UNK 02/26/2020 12:00:00 AM EDT active May Have - eCW1 ([facility]) May Have - UNK 02/26/2020 12:00:00 AM EDT active May Have - eCW1 ([facility]) May Have - UNK 02/26/2020 12:00:00 AM EDT active May Have - eCW1 ([facility]) May Have - UNK 02/26/2020 12:00:00 AM EDT active May Have - eCW1 ([facility]) May Have - UNK 02/26/2020 12:00:00 AM EDT active May Have - eCW1 ([facility]) May Have - UNK 02/26/2020 12:00:00 AM EDT active May Have - eCW1 ([facility]) May Have - UNK 02/26/2020 12:00:00 AM EDT active May Have - eCW1 ([facility]) May Have - UNK 02/26/2020 12:00:00 AM EDT active May Have - eCW1 ([facility]) May Have - UNK 02/26/2020 12:00:00 AM EDT active May Have - eCW1 ([facility]) May Have - UNK 02/26/2020 12:00:00 AM EDT active May Have - eCW1 ([facility]) May Have - UNK 02/26/2020 12:00:00 AM EDT active May Have - eCW1 ([facility]) May Have - UNK 02/26/2020 12:00:00 AM EDT active May Have - eCW1 ([facility]) May Have - UNK 02/26/2020 12:00:00 AM EDT active May Have - eCW1 ([facility]) May Have - UNK 02/26/2020 12:00:00 AM EDT active May Have - eCW1 ([facility]) May Have - UNK 02/26/2020 12:00:00 AM EDT active May Have - eCW1 ([facility]) May Have - UNK 02/26/2020 12:00:00 AM EDT active May Have - eCW1 ([facility]) May Have - UNK 02/26/2020 12:00:00 AM EDT active May Have - eCW1 ([facility]) May Have - UNK 02/26/2020 12:00:00 AM EDT active May Have - eCW1 ([facility]) May Have - UNK 02/26/2020 12:00:00 AM EDT active May Have - eCW1 ([facility]) May Have - UNK 02/26/2020 12:00:00 AM EDT active May Have - eCW1 ([facility]) May Have - UNK 02/26/2020 12:00:00 AM EDT active May Have - eCW1 ([facility]) May Have - UNK 02/26/2020 12:00:00 AM EDT active May Have - eCW1 ([facility]) May Have - UNK 02/26/2020 12:00:00 AM EDT active May Have - eCW1 ([facility]) May Have - UNK 02/26/2020 12:00:00 AM EDT active May Have - eCW1 ([facility]) Amoxicillin 875 MG / Clavulanate 125 MG Oral Tablet Amoxicillin-Pot Clavulanate 875-125 MG Amoxicillin-Pot Clavulanate 875-125 MG 02/15/2020 12:00:00 AM ED T 1.0 {tablet} active Amoxicillin-Pot Cla vulanate 875-125 MG eCW1 ([facility]) Prednisone 20 MG Oral Tablet PredniSONE 20 MG PredniSONE 20 MG 02/15/2020 12:00:00 AM EDT 1.0 {tablet} active Pr edniSONE 20 MG eCW1 ([facility]) Amoxicillin 875 MG / Clavulanate 125 MG Oral Tablet Amoxicillin-Pot Clavulanate 875-125 MG Amoxicillin-Pot Clavulanate 875-125 MG 02/15/2020 12:00:00 AM ED T 1.0 {tablet} active Amoxicillin-Pot Cla vulanate 875-125 MG eCW1 ([facility]) Amoxicillin 875 MG / Clavulanate 125 MG Oral Tablet Amoxicillin-Pot Clavulanate 875-125 MG Amoxicillin-Pot Clavulanate 875-125 MG 02/15/2020 12:00:00 AM ED T 1.0 {tablet} active Amoxicillin-Pot Cla vulanate 875-125 MG eCW1 ([facility]) Prednisone 20 MG Oral Tablet PredniSONE 20 MG PredniSONE 20 MG 02/15/2020 12:00:00 AM EDT 1.0 {tablet} active Pr edniSONE 20 MG eCW1 ([facility]) Amoxicillin 875 MG / Clavulanate 125 MG Oral Tablet Amoxicillin-Pot Clavulanate 875-125 MG Amoxicillin-Pot Clavulanate 875-125 MG 02/15/2020 12:00:00 AM ED T 1.0 {tablet} active Amoxicillin-Pot Cla vulanate 875-125 MG eCW1 ([facility]) Prednisone 20 MG Oral Tablet PredniSONE 20 MG PredniSONE 20 MG 02/15/2020 12:00:00 AM EDT 1.0 {tablet} active Pr edniSONE 20 MG eCW1 ([facility]) Prednisone 20 MG Oral Tablet PredniSONE 20 MG PredniSONE 20 MG 02/15/2020 12:00:00 AM EDT 1.0 {tablet} active Pr edniSONE 20 MG eCW1 ([facility]) Amoxicillin 875 MG / Clavulanate 125 MG Oral Tablet Amoxicillin-Pot Clavulanate 875-125 MG Amoxicillin-Pot Clavulanate 875-125 MG 02/15/2020 12:00:00 AM ED T 1.0 {tablet} active Amoxicillin-Pot Cla vulanate 875-125 MG eCW1 ([facility]) Prednisone 20 MG Oral Tablet PredniSONE 20 MG PredniSONE 20 MG 02/15/2020 12:00:00 AM EDT 1.0 {tablet} active Pr edniSONE 20 MG eCW1 ([facility]) Oxybutynin chloride 5 MG Oral Tablet Oxybutynin Chlori de 5 MG Oxybutynin Chloride 5 MG 02/14/2020 12:00:00 AM EDT 1.0 {tablet} active Oxybutynin Chloride 5 MG eCW1 ([facility]) Oxybutynin chloride 5 MG Oral Tablet Oxybutynin Chlori de 5 MG Oxybutynin Chloride 5 MG 02/14/2020 12:00:00 AM EDT 1.0 {tablet} active Oxybutynin Chloride 5 MG eCW1 ([facility]) Oxybutynin chloride 5 MG Oral Tablet Oxybutynin Chlori de 5 MG Oxybutynin Chloride 5 MG 02/14/2020 12:00:00 AM EDT 1.0 {tablet} active Oxybutynin Chloride 5 MG eCW1 ([facility]) Oxybutynin chloride 5 MG Oral Tablet Oxybutynin Chlori de 5 MG Oxybutynin Chloride 5 MG 02/14/2020 12:00:00 AM EDT 1.0 {tablet} active Oxybutynin Chloride 5 MG eCW1 ([facility]) Oxybutynin chloride 5 MG Oral Tablet Oxybutynin Chlori de 5 MG Oxybutynin Chloride 5 MG 02/14/2020 12:00:00 AM EDT 1.0 {tablet} active Oxybutynin Chloride 5 MG eCW1 ([facility]) Oxybutynin chloride 5 MG Oral Tablet Oxybutynin Chlori de 5 MG Oxybutynin Chloride 5 MG 02/14/2020 12:00:00 AM EDT 1.0 {tablet} active Oxybutynin Chloride 5 MG eCW1 ([facility]) Oxybutynin chloride 5 MG Oral Tablet Oxybutynin Chlori de 5 MG Oxybutynin Chloride 5 MG 02/14/2020 12:00:00 AM EDT 1.0 {tablet} active Oxybutynin Chloride 5 MG eCW1 ([facility]) Oxybutynin chloride 5 MG Oral Tablet Oxybutynin Chlori de 5 MG Oxybutynin Chloride 5 MG 02/14/2020 12:00:00 AM EDT 1.0 {tablet} active Oxybutynin Chloride 5 MG eCW1 ([facility]) Oxybutynin chloride 5 MG Oral Tablet Oxybutynin Chlori de 5 MG Oxybutynin Chloride 5 MG 02/14/2020 12:00:00 AM EDT 1.0 {tablet} active Oxybutynin Chloride 5 MG eCW1 ([facility]) Oxybutynin chloride 5 MG Oral Tablet Oxybutynin Chlori de 5 MG Oxybutynin Chloride 5 MG 02/14/2020 12:00:00 AM EDT 1.0 {tablet} active Oxybutynin Chloride 5 MG eCW1 ([facility]) Oxybutynin chloride 5 MG Oral Tablet Oxybutynin Chlori de 5 MG Oxybutynin Chloride 5 MG 02/14/2020 12:00:00 AM EDT 1.0 {tablet} active Oxybutynin Chloride 5 MG eCW1 ([facility]) Oxybutynin chloride 5 MG Oral Tablet Oxybutynin Chlori de 5 MG Oxybutynin Chloride 5 MG 02/14/2020 12:00:00 AM EDT 1.0 {tablet} active Oxybutynin Chloride 5 MG eCW1 ([facility]) Oxybutynin chloride 5 MG Oral Tablet Oxybutynin Chlori de 5 MG Oxybutynin Chloride 5 MG 02/14/2020 12:00:00 AM EDT 1.0 {tablet} active Oxybutynin Chloride 5 MG eCW1 ([facility]) Oxybutynin chloride 5 MG Oral Tablet Oxybutynin Chlori de 5 MG Oxybutynin Chloride 5 MG 02/14/2020 12:00:00 AM EDT 1.0 {tablet} active Oxybutynin Chloride 5 MG eCW1 ([facility]) Oxybutynin chloride 5 MG Oral Tablet Oxybutynin Chlori de 5 MG Oxybutynin Chloride 5 MG 02/14/2020 12:00:00 AM EDT 1.0 {tablet} active Oxybutynin Chloride 5 MG eCW1 ([facility]) Oxybutynin chloride 5 MG Oral Tablet Oxybutynin Chlori de 5 MG Oxybutynin Chloride 5 MG 02/14/2020 12:00:00 AM EDT 1.0 {tablet} active Oxybutynin Chloride 5 MG eCW1 ([facility]) Oxybutynin chloride 5 MG Oral Tablet Oxybutynin Chlori de 5 MG Oxybutynin Chloride 5 MG 02/14/2020 12:00:00 AM EDT 1.0 {tablet} active Oxybutynin Chloride 5 MG eCW1 ([facility]) Oxybutynin chloride 5 MG Oral Tablet Oxybutynin Chlori de 5 MG Oxybutynin Chloride 5 MG 02/14/2020 12:00:00 AM EDT 1.0 {tablet} active Oxybutynin Chloride 5 MG eCW1 ([facility]) Oxybutynin chloride 5 MG Oral Tablet Oxybutynin Chlori de 5 MG Oxybutynin Chloride 5 MG 02/14/2020 12:00:00 AM EDT 1.0 {tablet} active Oxybutynin Chloride 5 MG eCW1 ([facility]) Oxybutynin chloride 5 MG Oral Tablet Oxybutynin Chlori de 5 MG Oxybutynin Chloride 5 MG 02/14/2020 12:00:00 AM EDT 1.0 {tablet} active Oxybutynin Chloride 5 MG eCW1 ([facility]) Oxybutynin chloride 5 MG Oral Tablet Oxybutynin Chlori de 5 MG Oxybutynin Chloride 5 MG 02/14/2020 12:00:00 AM EDT 1.0 {tablet} active Oxybutynin Chloride 5 MG eCW1 ([facility]) Oxybutynin chloride 5 MG Oral Tablet Oxybutynin Chlori de 5 MG Oxybutynin Chloride 5 MG 02/14/2020 12:00:00 AM EDT 1.0 {tablet} active Oxybutynin Chloride 5 MG eCW1 ([facility]) Oxybutynin chloride 5 MG Oral Tablet Oxybutynin Chlori de 5 MG Oxybutynin Chloride 5 MG 02/14/2020 12:00:00 AM EDT 1.0 {tablet} active Oxybutynin Chloride 5 MG eCW1 ([facility]) Oxybutynin chloride 5 MG Oral Tablet Oxybutynin Chlori de 5 MG Oxybutynin Chloride 5 MG 02/14/2020 12:00:00 AM EDT 1.0 {tablet} active Oxybutynin Chloride 5 MG eCW1 ([facility]) Oxybutynin chloride 5 MG Oral Tablet Oxybutynin Chlori de 5 MG Oxybutynin Chloride 5 MG 02/14/2020 12:00:00 AM EDT 1.0 {tablet} active Oxybutynin Chloride 5 MG eCW1 ([facility]) Oxybutynin chloride 5 MG Oral Tablet Oxybutynin Chlori de 5 MG Oxybutynin Chloride 5 MG 02/14/2020 12:00:00 AM EDT 1.0 {tablet} active Oxybutynin Chloride 5 MG eCW1 ([facility]) Oxybutynin chloride 5 MG Oral Tablet Oxybutynin Chlori de 5 MG Oxybutynin Chloride 5 MG 02/14/2020 12:00:00 AM EDT 1.0 {tablet} active Oxybutynin Chloride 5 MG eCW1 ([facility]) Oxybutynin chloride 5 MG Oral Tablet Oxybutynin Chlori de 5 MG Oxybutynin Chloride 5 MG 02/14/2020 12:00:00 AM EDT 1.0 {tablet} active Oxybutynin Chloride 5 MG eCW1 ([facility]) Oxybutynin chloride 5 MG Oral Tablet Oxybutynin Chlori de 5 MG Oxybutynin Chloride 5 MG 02/14/2020 12:00:00 AM EDT 1.0 {tablet} active Oxybutynin Chloride 5 MG eCW1 ([facility]) Oxybutynin chloride 5 MG Oral Tablet Oxybutynin Chlori de 5 MG Oxybutynin Chloride 5 MG 02/14/2020 12:00:00 AM EDT 1.0 {tablet} active Oxybutynin Chloride 5 MG eCW1 ([facility]) Oxybutynin chloride 5 MG Oral Tablet Oxybutynin Chlori de 5 MG Oxybutynin Chloride 5 MG 02/14/2020 12:00:00 AM EDT 1.0 {tablet} active Oxybutynin Chloride 5 MG eCW1 ([facility]) Oxybutynin chloride 5 MG Oral Tablet Oxybutynin Chlori de 5 MG Oxybutynin Chloride 5 MG 02/14/2020 12:00:00 AM EDT 1.0 {tablet} active Oxybutynin Chloride 5 MG eCW1 ([facility]) Chux UNK 02/08/2020 12:00:00 AM EDT active Chux eCW1 ([facility]) Chux UNK 02/08/2020 12:00:00 AM EDT active Chux eCW1 ([facility]) Chux UNK 02/08/2020 12:00:00 AM EDT active Chux eCW1 ([facility]) Chux UNK 02/08/2020 12:00:00 AM EDT activ e 1pad to bed/couch/chair eCW1 ([facility]) Chux UNK 02/08/2020 12:00:00 AM EDT active Chux eCW1 ([facility]) Chux UNK 02/08/2020 12:00:00 AM EDT active Chux eCW1 ([facility]) Chux UNK 02/08/2020 12:00:00 AM EDT active Chux eCW1 ([facility]) Chux UNK 02/08/2020 12:00:00 AM EDT active Chux eCW1 ([facility]) Chux UNK 02/08/2020 12:00:00 AM EDT active Chux eCW1 ([facility]) Chux UNK 02/08/2020 12:00:00 AM EDT active Chux eCW1 ([facility]) Chux UNK 02/08/2020 12:00:00 AM EDT active Chux eCW1 ([facility]) Chux UNK 02/08/2020 12:00:00 AM EDT active Chux eCW1 ([facility]) Chux UNK 02/08/2020 12:00:00 AM EDT active Chux eCW1 ([facility]) Chux UNK 02/08/2020 12:00:00 AM EDT active Chux eCW1 ([facility]) Chux UNK 02/08/2020 12:00:00 AM EDT active Chux eCW1 ([facility]) Chux UNK 02/08/2020 12:00:00 AM EDT active Chux eCW1 ([facility]) Chux UNK 02/08/2020 12:00:00 AM EDT active Chux eCW1 ([facility]) Chux UNK 02/08/2020 12:00:00 AM EDT active Chux eCW1 ([facility]) Chux UNK 02/08/2020 12:00:00 AM EDT active Chux eCW1 ([facility]) Chux UNK 02/08/2020 12:00:00 AM EDT active Chux eCW1 ([facility]) Chux UNK 02/08/2020 12:00:00 AM EDT active Chux eCW1 ([facility]) Chux UNK 02/08/2020 12:00:00 AM EDT active Chux eCW1 ([facility]) Chux UNK 02/08/2020 12:00:00 AM EDT active Chux eCW1 ([facility]) Chux UNK 02/08/2020 12:00:00 AM EDT active Chux eCW1 ([facility]) Chux UNK 02/08/2020 12:00:00 AM EDT active Chux eCW1 ([facility]) Chux UNK 02/08/2020 12:00:00 AM EDT active Chux eCW1 ([facility]) Chux UNK 02/08/2020 12:00:00 AM EDT active Chux eCW1 ([facility]) Chux UNK 02/08/2020 12:00:00 AM EDT active Chux eCW1 ([facility]) Chux UNK 02/08/2020 12:00:00 AM EDT active Chux eCW1 ([facility]) Chux UNK 02/08/2020 12:00:00 AM EDT active Chux eCW1 ([facility]) Chux UNK 02/08/2020 12:00:00 AM EDT active Chux eCW1 ([facility]) Chux UNK 02/08/2020 12:00:00 AM EDT active Chux eCW1 ([facility]) Chux UNK 02/08/2020 12:00:00 AM EDT active Chux eCW1 ([facility]) Nystatin 354609 UNT/ML Oral Suspension Nystatin 128992 UNIT/ML Nystatin 122911 UNIT/ML 01/29/2020 12:00:00 AM EDT 5.0 {ml} active Nystatin 853761 UNIT/ML eCW1 ([facility]) Nystatin 690936 UNT/ML Oral Suspension Nystatin 814336 UNIT/ML Nystatin 952403 UNIT/ML 01/29/2020 12:00:00 AM EDT 5.0 {ml} suspende d Nystatin 379408 UNIT/ML eCW1 ([facility]) Nystatin 286537 UNT/ML Oral Suspension Nystatin 059973 UNIT/ML Nystatin 652034 UNIT/ML 01/29/2020 12:00:00 AM EDT 5.0 {ml} active Nystatin 544395 UNIT/ML eCW1 ([facility]) Nystatin 428508 UNT/ML Oral Suspension Nystatin 352632 UNIT/ML Nystatin 427809 UNIT/ML 01/29/2020 12:00:00 AM EDT 5.0 {ml} active Nystatin 861577 UNIT/ML eCW1 ([facility]) Nystatin 424728 UNT/ML Oral Suspension Nystatin 268633 UNIT/ML Nystatin 337051 UNIT/ML 01/29/2020 12:00:00 AM EDT 5.0 {ml} suspende d Nystatin 259790 UNIT/ML eCW1 ([facility]) Nystatin 896225 UNT/ML Oral Suspension Nystatin 493430 UNIT/ML Nystatin 941201 UNIT/ML 01/29/2020 12:00:00 AM EDT 5.0 {ml} suspende d Nystatin 843439 UNIT/ML eCW1 ([facility]) Nystatin 638609 UNT/ML Oral Suspension Nystatin 679927 UNIT/ML Nystatin 303316 UNIT/ML 01/29/2020 12:00:00 AM EDT 5.0 {ml} active Nystatin 220257 UNIT/ML eCW1 ([facility]) Nystatin 675787 UNT/ML Oral Suspension Nystatin 706232 UNIT/ML Nystatin 136073 UNIT/ML 01/29/2020 12:00:00 AM EDT 5.0 {ml} suspende d Nystatin 106100 UNIT/ML eCW1 ([facility]) Nystatin 657207 UNT/ML Oral Suspension Nystatin 875354 UNIT/ML Nystatin 303464 UNIT/ML 01/29/2020 12:00:00 AM EDT 5.0 {ml} active Nystatin 059520 UNIT/ML eCW1 ([facility]) Nystatin 167813 UNT/ML Oral Suspension Nystatin 310583 UNIT/ML Nystatin 903742 UNIT/ML 01/29/2020 12:00:00 AM EDT 5.0 {ml} suspende d Nystatin 322333 UNIT/ML eCW1 ([facility]) Nystatin 698041 UNT/ML Oral Suspension Nystatin 995518 UNIT/ML Nystatin 286076 UNIT/ML 01/29/2020 12:00:00 AM EDT 5.0 {ml} suspende d Nystatin 977986 UNIT/ML eCW1 ([facility]) Nystatin 389748 UNT/ML Oral Suspension Nystatin 560067 UNIT/ML Nystatin 738812 UNIT/ML 01/29/2020 12:00:00 AM EDT 5.0 {ml} active Nystatin 648604 UNIT/ML eCW1 ([facility]) Nystatin 002335 UNT/ML Oral Suspension Nystatin 297643 UNIT/ML Nystatin 640516 UNIT/ML 01/29/2020 12:00:00 AM EDT active 5 mL eCW1 ([facility]) Nystatin 191181 UNT/ML Oral Suspension Nystatin 999702 UNIT/ML Nystatin 298721 UNIT/ML 01/29/2020 12:00:00 AM EDT 5.0 {ml} suspende d Nystatin 133787 UNIT/ML eCW1 ([facility]) Nystatin 066499 UNT/ML Oral Suspension Nystatin 150753 UNIT/ML Nystatin 496015 UNIT/ML 01/29/2020 12:00:00 AM EDT 5.0 {ml} active Nystatin 912962 UNIT/ML eCW1 ([facility]) Nystatin 913934 UNT/ML Oral Suspension Nystatin 838600 UNIT/ML Nystatin 483050 UNIT/ML 01/29/2020 12:00:00 AM EDT 5.0 {ml} active Nystatin 780417 UNIT/ML eCW1 ([facility]) Nystatin 109287 UNT/ML Oral Suspension Nystatin 187769 UNIT/ML Nystatin 081365 UNIT/ML 01/29/2020 12:00:00 AM EDT 5.0 {ml} suspende d Nystatin 873449 UNIT/ML eCW1 ([facility]) Nystatin 777359 UNT/ML Oral Suspension Nystatin 802508 UNIT/ML Nystatin 382894 UNIT/ML 01/29/2020 12:00:00 AM EDT 5.0 {ml} active Nystatin 061740 UNIT/ML eCW1 ([facility]) Nystatin 060307 UNT/ML Oral Suspension Nystatin 604334 UNIT/ML Nystatin 102528 UNIT/ML 01/29/2020 12:00:00 AM EDT 5.0 {ml} active Nystatin 602609 UNIT/ML eCW1 ([facility]) Nystatin 140511 UNT/ML Oral Suspension Nystatin 859043 UNIT/ML Nystatin 847870 UNIT/ML 01/29/2020 12:00:00 AM EDT 5.0 {ml} active Nystatin 676754 UNIT/ML eCW1 ([facility]) Nystatin 307088 UNT/ML Oral Suspension Nystatin 338109 UNIT/ML Nystatin 088147 UNIT/ML 01/29/2020 12:00:00 AM EDT 5.0 {ml} suspende d Nystatin 940485 UNIT/ML eCW1 ([facility]) Nystatin 276616 UNT/ML Oral Suspension Nystatin 009296 UNIT/ML Nystatin 057388 UNIT/ML 01/29/2020 12:00:00 AM EDT 5.0 {ml} suspende d Nystatin 815361 UNIT/ML eCW1 ([facility]) Nystatin 379422 UNT/ML Oral Suspension Nystatin 635449 UNIT/ML Nystatin 265675 UNIT/ML 01/29/2020 12:00:00 AM EDT 5.0 {ml} active Nystatin 628371 UNIT/ML eCW1 ([facility]) Nystatin 560654 UNT/ML Oral Suspension Nystatin 484874 UNIT/ML Nystatin 978643 UNIT/ML 01/29/2020 12:00:00 AM EDT 5.0 {ml} suspende d Nystatin 364272 UNIT/ML eCW1 ([facility]) Nystatin 930282 UNT/ML Oral Suspension Nystatin 219023 UNIT/ML Nystatin 198804 UNIT/ML 01/29/2020 12:00:00 AM EDT 5.0 {ml} suspende d Nystatin 985051 UNIT/ML eCW1 ([facility]) Nystatin 193134 UNT/ML Oral Suspension Nystatin 181036 UNIT/ML Nystatin 685971 UNIT/ML 01/29/2020 12:00:00 AM EDT 5.0 {ml} suspende d Nystatin 436627 UNIT/ML eCW1 ([facility]) Nystatin 780983 UNT/ML Oral Suspension Nystatin 329123 UNIT/ML Nystatin 879417 UNIT/ML 01/29/2020 12:00:00 AM EDT 5.0 {ml} active Nystatin 779585 UNIT/ML eCW1 ([facility]) Nystatin 533095 UNT/ML Oral Suspension Nystatin 854706 UNIT/ML Nystatin 384293 UNIT/ML 01/29/2020 12:00:00 AM EDT 5.0 {ml} suspende d Nystatin 919279 UNIT/ML eCW1 ([facility]) Nystatin 782851 UNT/ML Oral Suspension Nystatin 557965 UNIT/ML Nystatin 779310 UNIT/ML 01/29/2020 12:00:00 AM EDT 5.0 {ml} active Nystatin 282735 UNIT/ML eCW1 ([facility]) Nystatin 779800 UNT/ML Oral Suspension Nystatin 243333 UNIT/ML Nystatin 328316 UNIT/ML 01/29/2020 12:00:00 AM EDT 5.0 {ml} suspende d Nystatin 449367 UNIT/ML eCW1 ([facility]) Nystatin 601775 UNT/ML Oral Suspension Nystatin 862544 UNIT/ML Nystatin 182716 UNIT/ML 01/29/2020 12:00:00 AM EDT 5.0 {ml} suspende d Nystatin 880768 UNIT/ML eCW1 ([facility]) Acetaminophen 325 MG / Hydrocodone La trate 5 MG Oral Tablet Hydrocodone- Acetaminophen 5-325 MG Hydrocodone-Acetaminophen 5-325 MG 01/25/2020 12:00:00 AM EDT 1.0 {tablet_as_needed} suspended Hydrocodone-Acetaminophen 5- 325 MG eCW1 ([facility]) Acetaminophen 325 MG / Hydrocodone La trate 5 MG Oral Tablet Hydrocodone- Acetaminophen 5-325 MG Hydrocodone-Acetaminophen 5-325 MG 01/25/2020 12:00:00 AM EDT 1.0 {tablet_as_needed} suspended Hydrocodone-Acetaminophen 5- 325 MG eCW1 ([facility]) Acetaminophen 325 MG / Hydrocodone La trate 5 MG Oral Tablet Hydrocodone- Acetaminophen 5-325 MG Hydrocodone-Acetaminophen 5-325 MG 01/25/2020 12:00:00 AM EDT 1.0 {tablet_as_needed} active Hydrocodone-Acetaminophen 5-325 MG eCW1 ([facility]) Acetaminophen 325 MG / Hydrocodone La trate 5 MG Oral Tablet Hydrocodone- Acetaminophen 5-325 MG Hydrocodone-Acetaminophen 5-325 MG 01/25/2020 12:00:00 AM EDT 1.0 {tablet_as_needed} suspended Hydrocodone-Acetaminophen 5- 325 MG eCW1 ([facility]) Acetaminophen 325 MG / Hydrocodone La trate 5 MG Oral Tablet Hydrocodone- Acetaminophen 5-325 MG Hydrocodone-Acetaminophen 5-325 MG 01/25/2020 12:00:00 AM EDT active 1 tablet as neede d eCW1 ([facility]) Acetaminophen 325 MG / Hydrocodone La trate 5 MG Oral Tablet Hydrocodone- Acetaminophen 5-325 MG Hydrocodone-Acetaminophen 5-325 MG 01/25/2020 12:00:00 AM EDT 1.0 {tablet_as_needed} active Hydrocodone-Acetaminophen 5-325 MG eCW1 ([facility]) Acetaminophen 325 MG / Hydrocodone La trate 5 MG Oral Tablet Hydrocodone- Acetaminophen 5-325 MG Hydrocodone-Acetaminophen 5-325 MG 01/25/2020 12:00:00 AM EDT 1.0 {tablet_as_needed} active Hydrocodone-Acetaminophen 5-325 MG eCW1 ([facility]) Acetaminophen 325 MG / Hydrocodone La trate 5 MG Oral Tablet Hydrocodone- Acetaminophen 5-325 MG Hydrocodone-Acetaminophen 5-325 MG 01/25/2020 12:00:00 AM EDT 1.0 {tablet_as_needed} suspended Hydrocodone-Acetaminophen 5- 325 MG eCW1 ([facility]) Acetaminophen 325 MG / Hydrocodone La trate 5 MG Oral Tablet Hydrocodone- Acetaminophen 5-325 MG Hydrocodone-Acetaminophen 5-325 MG 01/25/2020 12:00:00 AM EDT 1.0 {tablet_as_needed} active Hydrocodone-Acetaminophen 5-325 MG eCW1 ([facility]) Acetaminophen 325 MG / Hydrocodone La trate 5 MG Oral Tablet Hydrocodone- Acetaminophen 5-325 MG Hydrocodone-Acetaminophen 5-325 MG 01/25/2020 12:00:00 AM EDT 1.0 {tablet_as_needed} suspended Hydrocodone-Acetaminophen 5- 325 MG eCW1 ([facility]) Acetaminophen 325 MG / Hydrocodone La trate 5 MG Oral Tablet Hydrocodone- Acetaminophen 5-325 MG Hydrocodone-Acetaminophen 5-325 MG 01/25/2020 12:00:00 AM EDT 1.0 {tablet_as_needed} suspended Hydrocodone-Acetaminophen 5- 325 MG eCW1 ([facility]) Acetaminophen 325 MG / Hydrocodone La trate 5 MG Oral Tablet Hydrocodone- Acetaminophen 5-325 MG Hydrocodone-Acetaminophen 5-325 MG 01/25/2020 12:00:00 AM EDT 1.0 {tablet_as_needed} suspended Hydrocodone-Acetaminophen 5- 325 MG eCW1 ([facility]) Acetaminophen 325 MG / Hydrocodone La trate 5 MG Oral Tablet Hydrocodone- Acetaminophen 5-325 MG Hydrocodone-Acetaminophen 5-325 MG 01/25/2020 12:00:00 AM EDT 1.0 {tablet_as_needed} active Hydrocodone-Acetaminophen 5-325 MG eCW1 ([facility]) Acetaminophen 325 MG / Hydrocodone La trate 5 MG Oral Tablet Hydrocodone- Acetaminophen 5-325 MG Hydrocodone-Acetaminophen 5-325 MG 01/25/2020 12:00:00 AM EDT 1.0 {tablet_as_needed} active Hydrocodone-Acetaminophen 5-325 MG eCW1 ([facility]) Ultra Thin Pen [place] 31G X 5 MM UNK 01/18/2020 12:00:00 AM EDT active Ultra Th[employer] [place] 31G X 5 M M eCW1 ([facility]) Ultra Thin [employer] [place] 31G X 5 MM UNK 01/18/2020 12:00:00 AM EDT active [employer] [place] 31G X 5 M M eCW1 ([facility]) Ultra Thin [employer] [place] 31G X 5 MM UNK 01/18/2020 12:00:00 AM EDT active Ultra [employer] [place] 31G X 5 M M eCW1 ([facility]) Ultra Thin [employer] [place] 31G X 5 MM UNK 01/18/2020 12:00:00 AM EDT active Ultra [employer] [place] 31G X 5 M M eCW1 ([facility]) Ultra Thin [employer] [place] 31G X 5 MM UNK 01/18/2020 12:00:00 AM EDT active Ultra Th[employer] [place] 31G X 5 M M eCW1 ([facility]) Ultra Thin [employer] [place] 31G X 5 MM UNK 01/18/2020 12:00:00 AM EDT active Ultra Th[employer] [place] 31G X 5 M M eCW1 ([facility]) Ultra Thin [employer] [place] 31G X 5 MM UNK 01/18/2020 12:00:00 AM EDT active Ultra Th[employer] [place] 31G X 5 M M eCW1 ([facility]) Ultra Thin [employer] [place] 31G X 5 MM UNK 01/18/2020 12:00:00 AM EDT active Ultra [employer] [place] 31G X 5 M M eCW1 ([facility]) Ultra Thin [employer] [place] 31G X 5 MM UNK 01/18/2020 12:00:00 AM EDT active Ultra Th[employer] [place] 31G X 5 M M eCW1 ([facility]) Ultra Thin [employer] [place] 31G X 5 MM UNK 01/18/2020 12:00:00 AM EDT active Ultra Th[employer] [place] 31G X 5 M M eCW1 ([facility]) Ultra Thin [employer] [place] 31G X 5 MM UNK 01/18/2020 12:00:00 AM EDT active as directed eCW1 ([facility]) Ultra Thin [employer] [place] 31G X 5 MM UNK 01/18/2020 12:00:00 AM EDT active Ultra Th[employer] [place] 31G X 5 M M eCW1 ([facility]) Ultra Thin [employer] [place] 31G X 5 MM UNK 01/18/2020 12:00:00 AM EDT active Ultra Th[employer] [place] 31G X 5 M M eCW1 ([facility]) Ultra Thin [employer] [place] 31G X 5 MM UNK 01/18/2020 12:00:00 AM EDT active Ultra Th[employer] [place] 31G X 5 M M eCW1 ([facility]) Ultra Thin [employer] [place] 31G X 5 MM UNK 01/18/2020 12:00:00 AM EDT active Ultra Th[employer] [place] 31G X 5 M M eCW1 ([facility]) Ultra Thin [employer] [place] 31G X 5 MM UNK 01/18/2020 12:00:00 AM EDT active [employer] [place] 31G X 5 M M eCW1 ([facility]) [employer] [place] 31G X 5 MM UNK 01/18/2020 12:00:00 AM EDT active [employer] [place] 31G X 5 M M eCW1 ([facility]) [employer] [place] 31G X 5 MM UNK 01/18/2020 12:00:00 AM EDT active [employer] [place] 31G X 5 M M eCW1 ([facility]) [employer] [place] 31G X 5 MM UNK 01/18/2020 12:00:00 AM EDT active [employer] [place] 31G X 5 M M eCW1 ([facility]) [employer] [place] 31G X 5 MM UNK 01/18/2020 12:00:00 AM EDT active [employer] [place] 31G X 5 M M eCW1 ([facility]) [employer] [place] 31G X 5 MM UNK 01/18/2020 12:00:00 AM EDT active [employer] [place] 31G X 5 M M eCW1 ([facility]) [employer] [place] 31G X 5 MM UNK 01/18/2020 12:00:00 AM EDT active [employer] [place] 31G X 5 M M eCW1 ([facility]) [employer] [place] 31G X 5 MM UNK 01/18/2020 12:00:00 AM EDT active [employer] [place] 31G X 5 M M eCW1 ([facility]) [employer] [place] 31G X 5 MM UNK 01/18/2020 12:00:00 AM EDT active [employer] [place] 31G X 5 M M eCW1 ([facility]) [employer] [place] 31G X 5 MM UNK 01/18/2020 12:00:00 AM EDT active [employer] [place] 31G X 5 M M eCW1 ([facility]) [employer] [place] 31G X 5 MM UNK 01/18/2020 12:00:00 AM EDT active [employer] [place] 31G X 5 M M eCW1 ([facility]) [employer] [place] 31G X 5 MM UNK 01/18/2020 12:00:00 AM EDT active [employer] [place] 31G X 5 M M eCW1 ([facility]) [employer] [place] 31G X 5 MM UNK 01/18/2020 12:00:00 AM EDT active [employer] [place] 31G X 5 M M eCW1 ([facility]) [employer] [place] 31G X 5 MM UNK 01/18/2020 12:00:00 AM EDT active [employer] [place] 31G X 5 M M eCW1 ([facility]) [employer] [place] 31G X 5 MM UNK 01/18/2020 12:00:00 AM EDT active [employer] [place] 31G X 5 M M eCW1 ([facility]) [employer] [place] 31G X 5 MM UNK 01/18/2020 12:00:00 AM EDT active [employer] [place] 29G X 5 M M eCW1 ([facility]) gabapentin 400 MG Oral Capsule Gabapentin 400 MG Gabapentin 400 MG 01/17/2020 12:00:00 AM EDT 1.0 {capsule} active G abapentin 400 MG eCW1 ([facility]) gabapentin 400 MG Oral Capsule Gabapentin 400 MG Gabapentin 400 MG 01/17/2020 12:00:00 AM EDT 1.0 {capsule} active G abapentin 400 MG eCW1 ([facility]) tizanidine 4 MG Oral Tablet Tizanidine HCl 4 MG Tizanidine H Cl 4 MG 01/17/2020 12:00:00 AM EDT 1.0 {tablet_as_needed} active Tizanidine HCl 4 MG eCW1 ([facility]) gabapentin 400 MG Oral Capsule Gabapentin 400 MG Gabapentin 400 MG 01/17/2020 12:00:00 AM EDT 1.0 {capsule} active G abapentin 400 MG eCW1 ([facility]) Lidocaine HCl 4 % UNK 01/17/2020 12:00:00 AM EDT active Lidocaine HCl 4 % eCW1 ([facility]) gabapentin 400 MG Oral Capsule Gabapentin 400 MG Gabapentin 400 MG 01/17/2020 12:00:00 AM EDT 1.0 {capsule} active G abapentin 400 MG eCW1 ([facility]) gabapentin 400 MG Oral Capsule Gabapentin 400 MG Gabapentin 400 MG 01/17/2020 12:00:00 AM EDT 1.0 {capsule} active G abapentin 400 MG eCW1 ([facility]) tizanidine 4 MG Oral Tablet Tizanidine HCl 4 MG Tizanidine H Cl 4 MG 01/17/2020 12:00:00 AM EDT 1.0 {tablet_as_needed} suspended Tizanidine HCl 4 MG eCW1 ([facility]) gabapentin 400 MG Oral Capsule Gabapentin 400 MG Gabapentin 400 MG 01/17/2020 12:00:00 AM EDT 1.0 {capsule} active G abapentin 400 MG eCW1 ([facility]) tizanidine 4 MG Oral Tablet Tizanidine HCl 4 MG Tizanidine H Cl 4 MG 01/17/2020 12:00:00 AM EDT 1.0 {tablet_as_needed} active Tizanidine HCl 4 MG eCW1 ([facility]) gabapentin 400 MG Oral Capsule Gabapentin 400 MG Gabapentin 400 MG 01/17/2020 12:00:00 AM EDT 1.0 {capsule} active G abapentin 400 MG eCW1 ([facility]) Lidocaine HCl 4 % UNK 01/17/2020 12:00:00 AM EDT active Lidocaine HCl 4 % eCW1 ([facility]) gabapentin 400 MG Oral Capsule Gabapentin 400 MG Gabapentin 400 MG 01/17/2020 12:00:00 AM EDT 1.0 {capsule} active G abapentin 400 MG eCW1 ([facility]) tizanidine 4 MG Oral Tablet Tizanidine HCl 4 MG Tizanidine H Cl 4 MG 01/17/2020 12:00:00 AM EDT 1.0 {tablet_as_needed} active Tizanidine HCl 4 MG eCW1 ([facility]) gabapentin 400 MG Oral Capsule Gabapentin 400 MG Gabapentin 400 MG 01/17/2020 12:00:00 AM EDT 1.0 {capsule} active G abapentin 400 MG eCW1 ([facility]) Lidocaine HCl 4 % UNK 01/17/2020 12:00:00 AM EDT active Lidocaine HCl 4 % eCW1 ([facility]) tizanidine 4 MG Oral Tablet Tizanidine HCl 4 MG Tizanidine H Cl 4 MG 01/17/2020 12:00:00 AM EDT 1.0 {tablet_as_needed} active Tizanidine HCl 4 MG eCW1 ([facility]) gabapentin 400 MG Oral Capsule Gabapentin 400 MG Gabapentin 400 MG 01/17/2020 12:00:00 AM EDT 1.0 {capsule} active G abapentin 400 MG eCW1 ([facility]) tizanidine 4 MG Oral Tablet Tizanidine HCl 4 MG Tizanidine H Cl 4 MG 01/17/2020 12:00:00 AM EDT 1.0 {tablet_as_needed} active Tizanidine HCl 4 MG eCW1 ([facility]) gabapentin 400 MG Oral Capsule Gabapentin 400 MG Gabapentin 400 MG 01/17/2020 12:00:00 AM EDT 1.0 {capsule} active G abapentin 400 MG eCW1 ([facility]) Lidocaine HCl 4 % UNK 01/17/2020 12:00:00 AM EDT active Lidocaine HCl 4 % eCW1 ([facility]) Lidocaine HCl 4 % UNK 01/17/2020 12:00:00 AM EDT active Lidocaine HCl 4 % eCW1 ([facility]) gabapentin 400 MG Oral Capsule Gabapentin 400 MG Gabapentin 400 MG 01/17/2020 12:00:00 AM EDT 1.0 {capsule} active G abapentin 400 MG eCW1 ([facility]) Lidocaine HCl 4 % UNK 01/17/2020 12:00:00 AM EDT active Lidocaine HCl 4 % eCW1 ([facility]) tizanidine 4 MG Oral Tablet Tizanidine HCl 4 MG Tizanidine H Cl 4 MG 01/17/2020 12:00:00 AM EDT 1.0 {tablet_as_needed} active Tizanidine HCl 4 MG eCW1 ([facility]) Lidocaine HCl 4 % UNK 01/17/2020 12:00:00 AM EDT suspended Lidocaine HCl 4 % eCW1 ([facility]) gabapentin 400 MG Oral Capsule Gabapentin 400 MG Gabapentin 400 MG 01/17/2020 12:00:00 AM EDT 1.0 {capsule} active G abapentin 400 MG eCW1 ([facility]) gabapentin 400 MG Oral Capsule Gabapentin 400 MG Gabapentin 400 MG 01/17/2020 12:00:00 AM EDT 1.0 {capsule} active G abapentin 400 MG eCW1 ([facility]) tizanidine 4 MG Oral Tablet Tizanidine HCl 4 MG Tizanidine H Cl 4 MG 01/17/2020 12:00:00 AM EDT 1.0 {tablet_as_needed} active Tizanidine HCl 4 MG eCW1 ([facility]) gabapentin 400 MG Oral Capsule Gabapentin 400 MG Gabapentin 400 MG 01/17/2020 12:00:00 AM EDT 1.0 {capsule} active G abapentin 400 MG eCW1 ([facility]) Lidocaine HCl 4 % UNK 01/17/2020 12:00:00 AM EDT suspended Lidocaine HCl 4 % eCW1 ([facility]) gabapentin 400 MG Oral Capsule Gabapentin 400 MG Gabapentin 400 MG 01/17/2020 12:00:00 AM EDT 1.0 {capsule} active G abapentin 400 MG eCW1 ([facility]) tizanidine 4 MG Oral Tablet Tizanidine HCl 4 MG Tizanidine H Cl 4 MG 01/17/2020 12:00:00 AM EDT 1.0 {tablet_as_needed} active Tizanidine HCl 4 MG eCW1 ([facility]) tizanidine 4 MG Oral Tablet Tizanidine HCl 4 MG Tizanidine H Cl 4 MG 01/17/2020 12:00:00 AM EDT 1.0 {tablet_as_needed} active Tizanidine HCl 4 MG eCW1 ([facility]) Lidocaine HCl 4 % UNK 01/17/2020 12:00:00 AM EDT active Lidocaine HCl 4 % eCW1 ([facility]) Lidocaine HCl 4 % UNK 01/17/2020 12:00:00 AM EDT active Lidocaine HCl 4 % eCW1 ([facility]) gabapentin 400 MG Oral Capsule Gabapentin 400 MG Gabapentin 400 MG 01/17/2020 12:00:00 AM EDT 1.0 {capsule} active G abapentin 400 MG eCW1 ([facility]) gabapentin 400 MG Oral Capsule Gabapentin 400 MG Gabapentin 400 MG 01/17/2020 12:00:00 AM EDT 1.0 {capsule} active G abapentin 400 MG eCW1 ([facility]) Lidocaine HCl 4 % UNK 01/17/2020 12:00:00 AM EDT active Lidocaine HCl 4 % eCW1 ([facility]) tizanidine 4 MG Oral Tablet Tizanidine HCl 4 MG Tizanidine H Cl 4 MG 01/17/2020 12:00:00 AM EDT 1.0 {tablet_as_needed} active Tizanidine HCl 4 MG eCW1 ([facility]) tizanidine 4 MG Oral Tablet Tizanidine HCl 4 MG Tizanidine H Cl 4 MG 01/17/2020 12:00:00 AM EDT 1.0 {tablet_as_needed} active Tizanidine HCl 4 MG eCW1 ([facility]) gabapentin 400 MG Oral Capsule Gabapentin 400 MG Gabapentin 400 MG 01/17/2020 12:00:00 AM EDT 1.0 {capsule} active G abapentin 400 MG eCW1 ([facility]) tizanidine 4 MG Oral Tablet Tizanidine HCl 4 MG Tizanidine H Cl 4 MG 01/17/2020 12:00:00 AM EDT 1.0 {tablet_as_needed} active Tizanidine HCl 4 MG eCW1 ([facility]) gabapentin 400 MG Oral Capsule Gabapentin 400 MG Gabapentin 400 MG 01/17/2020 12:00:00 AM EDT 1.0 {capsule} active G abapentin 400 MG eCW1 ([facility]) tizanidine 4 MG Oral Tablet Tizanidine HCl 4 MG Tizanidine H Cl 4 MG 01/17/2020 12:00:00 AM EDT 1.0 {tablet_as_needed} active Tizanidine HCl 4 MG eCW1 ([facility]) Lidocaine HCl 4 % UNK 01/17/2020 12:00:00 AM EDT active Lidocaine HCl 4 % eCW1 ([facility]) Lidocaine HCl 4 % UNK 01/17/2020 12:00:00 AM EDT active Lidocaine HCl 4 % eCW1 ([facility]) tizanidine 4 MG Oral Tablet Tizanidine HCl 4 MG Tizanidine H Cl 4 MG 01/17/2020 12:00:00 AM EDT 1.0 {tablet_as_needed} active Tizanidine HCl 4 MG eCW1 ([facility]) tizanidine 4 MG Oral Tablet Tizanidine HCl 4 MG Tizanidine H Cl 4 MG 01/17/2020 12:00:00 AM EDT 1.0 {tablet_as_needed} active Tizanidine HCl 4 MG eCW1 ([facility]) Lidocaine HCl 4 % UNK 01/17/2020 12:00:00 AM EDT active Lidocaine HCl 4 % eCW1 ([facility]) tizanidine 4 MG Oral Tablet Tizanidine HCl 4 MG Tizanidine H Cl 4 MG 01/17/2020 12:00:00 AM EDT 1.0 {tablet_as_needed} active Tizanidine HCl 4 MG eCW1 ([facility]) tizanidine 4 MG Oral Tablet Tizanidine HCl 4 MG Tizanidine H Cl 4 MG 01/17/2020 12:00:00 AM EDT 1.0 {tablet_as_needed} active Tizanidine HCl 4 MG eCW1 ([facility]) Lidocaine HCl 4 % UNK 01/17/2020 12:00:00 AM EDT active Lidocaine HCl 4 % eCW1 ([facility]) gabapentin 400 MG Oral Capsule Gabapentin 400 MG Gabapentin 400 MG 01/17/2020 12:00:00 AM EDT 1.0 {capsule} active G abapentin 400 MG eCW1 ([facility]) gabapentin 400 MG Oral Capsule Gabapentin 400 MG Gabapentin 400 MG 01/17/2020 12:00:00 AM EDT 1.0 {capsule} active G abapentin 400 MG eCW1 ([facility]) tizanidine 4 MG Oral Tablet Tizanidine HCl 4 MG Tizanidine H Cl 4 MG 01/17/2020 12:00:00 AM EDT 1.0 {tablet_as_needed} active Tizanidine HCl 4 MG eCW1 ([facility]) tizanidine 4 MG Oral Tablet Tizanidine HCl 4 MG Tizanidine H Cl 4 MG 01/17/2020 12:00:00 AM EDT 1.0 {tablet_as_needed} active Tizanidine HCl 4 MG eCW1 ([facility]) Lidocaine HCl 4 % UNK 01/17/2020 12:00:00 AM EDT active Lidocaine HCl 4 % eCW1 ([facility]) gabapentin 400 MG Oral Capsule Gabapentin 400 MG Gabapentin 400 MG 01/17/2020 12:00:00 AM EDT 1.0 {capsule} active G abapentin 400 MG eCW1 ([facility]) Lidocaine HCl 4 % UNK 01/17/2020 12:00:00 AM EDT active Lidocaine HCl 4 % eCW1 ([facility]) tizanidine 4 MG Oral Tablet Tizanidine HCl 4 MG Tizanidine H Cl 4 MG 01/17/2020 12:00:00 AM EDT 1.0 {tablet_as_needed} active Tizanidine HCl 4 MG eCW1 ([facility]) Lidocaine HCl 4 % UNK 01/17/2020 12:00:00 AM EDT active Lidocaine HCl 4 % eCW1 ([facility]) tizanidine 4 MG Oral Tablet Tizanidine HCl 4 MG Tizanidine H Cl 4 MG 01/17/2020 12:00:00 AM EDT 1.0 {tablet_as_needed} active Tizanidine HCl 4 MG eCW1 ([facility]) gabapentin 400 MG Oral Capsule Gabapentin 400 MG Gabapentin 400 MG 01/17/2020 12:00:00 AM EDT 1.0 {capsule} active G abapentin 400 MG eCW1 ([facility]) Lidocaine HCl 4 % UNK 01/17/2020 12:00:00 AM EDT active Lidocaine HCl 4 % eCW1 ([facility]) tizanidine 4 MG Oral Tablet Tizanidine HCl 4 MG Tizanidine H Cl 4 MG 01/17/2020 12:00:00 AM EDT 1.0 {tablet_as_needed} active Tizanidine HCl 4 MG eCW1 ([facility]) Lidocaine HCl 4 % UNK 01/17/2020 12:00:00 AM EDT active Lidocaine HCl 4 % eCW1 ([facility]) tizanidine 4 MG Oral Tablet Tizanidine HCl 4 MG Tizanidine H Cl 4 MG 01/17/2020 12:00:00 AM EDT 1.0 {tablet_as_needed} active Tizanidine HCl 4 MG eCW1 ([facility]) tizanidine 4 MG Oral Tablet Tizanidine HCl 4 MG Tizanidine H Cl 4 MG 01/17/2020 12:00:00 AM EDT active 1 tablet as needed eCW1 ([facility]) Lidocaine HCl 4 % UNK 01/17/2020 12:00:00 AM EDT active Lidocaine HCl 4 % eCW1 ([facility]) Lidocaine HCl 4 % UNK 01/17/2020 12:00:00 AM EDT suspended Lidocaine HCl 4 % eCW1 ([facility]) Lidocaine HCl 4 % UNK 01/17/2020 12:00:00 AM EDT active 1 application, shoulder, knee, buttock as needed eCW1 ([facility]) Lidocaine HCl 4 % UNK 01/17/2020 12:00:00 AM EDT active Lidocaine HCl 4 % eCW1 ([facility]) Lidocaine HCl 4 % UNK 01/17/2020 12:00:00 AM EDT active Lidocaine HCl 4 % eCW1 ([facility]) gabapentin 400 MG Oral Capsule Gabapentin 400 MG Gabapentin 400 MG 01/17/2020 12:00:00 AM EDT 1.0 {capsule} active G abapentin 400 MG eCW1 ([facility]) Lidocaine HCl 4 % UNK 01/17/2020 12:00:00 AM EDT active Lidocaine HCl 4 % eCW1 ([facility]) gabapentin 400 MG Oral Capsule Gabapentin 400 MG Gabapentin 400 MG 01/17/2020 12:00:00 AM EDT active 1 capsul e eCW1 ([facility]) gabapentin 400 MG Oral Capsule Gabapentin 400 MG Gabapentin 400 MG 01/17/2020 12:00:00 AM EDT 1.0 {capsule} active G abapentin 400 MG eCW1 ([facility]) Lidocaine HCl 4 % UNK 01/17/2020 12:00:00 AM EDT active Lidocaine HCl 4 % eCW1 ([facility]) gabapentin 400 MG Oral Capsule Gabapentin 400 MG Gabapentin 400 MG 01/17/2020 12:00:00 AM EDT 1.0 {capsule} active G abapentin 400 MG eCW1 ([facility]) tizanidine 4 MG Oral Tablet Tizanidine HCl 4 MG Tizanidine H Cl 4 MG 01/17/2020 12:00:00 AM EDT 1.0 {tablet_as_needed} active Tizanidine HCl 4 MG eCW1 ([facility]) tizanidine 4 MG Oral Tablet Tizanidine HCl 4 MG Tizanidine H Cl 4 MG 01/17/2020 12:00:00 AM EDT 1.0 {tablet_as_needed} active Tizanidine HCl 4 MG eCW1 ([facility]) gabapentin 400 MG Oral Capsule Gabapentin 400 MG Gabapentin 400 MG 01/17/2020 12:00:00 AM EDT 1.0 {capsule} active G abapentin 400 MG eCW1 ([facility]) tizanidine 4 MG Oral Tablet Tizanidine HCl 4 MG Tizanidine H Cl 4 MG 01/17/2020 12:00:00 AM EDT 1.0 {tablet_as_needed} active Tizanidine HCl 4 MG eCW1 ([facility]) Lidocaine HCl 4 % UNK 01/17/2020 12:00:00 AM EDT suspended Lidocaine HCl 4 % eCW1 ([facility]) Lidocaine HCl 4 % UNK 01/17/2020 12:00:00 AM EDT active Lidocaine HCl 4 % eCW1 ([facility]) gabapentin 400 MG Oral Capsule Gabapentin 400 MG Gabapentin 400 MG 01/17/2020 12:00:00 AM EDT 1.0 {capsule} active G abapentin 400 MG eCW1 ([facility]) gabapentin 400 MG Oral Capsule Gabapentin 400 MG Gabapentin 400 MG 01/17/2020 12:00:00 AM EDT 1.0 {capsule} active G abapentin 400 MG eCW1 ([facility]) tizanidine 4 MG Oral Tablet Tizanidine HCl 4 MG Tizanidine H Cl 4 MG 01/17/2020 12:00:00 AM EDT 1.0 {tablet_as_needed} active Tizanidine HCl 4 MG eCW1 ([facility]) Lidocaine HCl 4 % UNK 01/17/2020 12:00:00 AM EDT active Lidocaine HCl 4 % eCW1 ([facility]) gabapentin 400 MG Oral Capsule Gabapentin 400 MG Gabapentin 400 MG 01/17/2020 12:00:00 AM EDT 1.0 {capsule} active G abapentin 400 MG eCW1 ([facility]) tizanidine 4 MG Oral Tablet Tizanidine HCl 4 MG Tizanidine H Cl 4 MG 01/17/2020 12:00:00 AM EDT 1.0 {tablet_as_needed} active Tizanidine HCl 4 MG eCW1 ([facility]) Lidocaine HCl 4 % UNK 01/17/2020 12:00:00 AM EDT active Lidocaine HCl 4 % eCW1 ([facility]) tizanidine 4 MG Oral Tablet Tizanidine HCl 4 MG Tizanidine H Cl 4 MG 01/17/2020 12:00:00 AM EDT 1.0 {tablet_as_needed} active Tizanidine HCl 4 MG eCW1 ([facility]) gabapentin 400 MG Oral Capsule Gabapentin 400 MG Gabapentin 400 MG 01/17/2020 12:00:00 AM EDT 1.0 {capsule} active G abapentin 400 MG eCW1 ([facility]) duloxetine 60 MG Delayed Release Oral Capsule Duloxeti ne HCl 60 MG Duloxetine HCl 60 MG 10/24/2019 12:00:00 AM EST 1.0 {capsule} a ctive Duloxetine HCl 60 MG eCW1 ([facility]) duloxetine 60 MG Delayed Release Oral Capsule Duloxeti ne HCl 60 MG Duloxetine HCl 60 MG 10/24/2019 12:00:00 AM EST 1.0 {capsule} a ctive Duloxetine HCl 60 MG eCW1 ([facility]) duloxetine 60 MG Delayed Release Oral Capsule Duloxeti ne HCl 60 MG Duloxetine HCl 60 MG 10/24/2019 12:00:00 AM EST 1.0 {capsule} s uspended Duloxetine HCl 60 MG eCW1 ([facility]) duloxetine 60 MG Delayed Release Oral Capsule Duloxeti ne HCl 60 MG Duloxetine HCl 60 MG 10/24/2019 12:00:00 AM EST 1.0 {capsule} a ctive Duloxetine HCl 60 MG eCW1 ([facility]) duloxetine 30 MG Delayed Release Oral Capsule Duloxeti ne HCl 30 MG Duloxetine HCl 30 MG 10/24/2019 12:00:00 AM EST suspende d Duloxetine HCl 30 MG eCW1 ([facility]) duloxetine 60 MG Delayed Release Oral Capsule Duloxeti ne HCl 60 MG Duloxetine HCl 60 MG 10/24/2019 12:00:00 AM EST 1.0 {capsule} a ctive Duloxetine HCl 60 MG eCW1 ([facility]) duloxetine 60 MG Delayed Release Oral Capsule Duloxeti ne HCl 60 MG Duloxetine HCl 60 MG 10/24/2019 12:00:00 AM EST 1.0 {capsule} a ctive Duloxetine HCl 60 MG eCW1 ([facility]) duloxetine 30 MG Delayed Release Oral Capsule Duloxeti ne HCl 30 MG Duloxetine HCl 30 MG 10/24/2019 12:00:00 AM EST active Duloxetine HCl 30 MG eCW1 ([facility]) duloxetine 30 MG Delayed Release Oral Capsule Duloxeti ne HCl 30 MG Duloxetine HCl 30 MG 10/24/2019 12:00:00 AM EST active Duloxetine HCl 30 MG eCW1 ([facility]) duloxetine 60 MG Delayed Release Oral Capsule Duloxeti ne HCl 60 MG Duloxetine HCl 60 MG 10/24/2019 12:00:00 AM EST 1.0 {capsule} s uspended Duloxetine HCl 60 MG eCW1 ([facility]) duloxetine 30 MG Delayed Release Oral Capsule Duloxeti ne HCl 30 MG Duloxetine HCl 30 MG 10/24/2019 12:00:00 AM EST active 1 capsule c -1 60mg capsule eCW1 ([facility]) duloxetine 60 MG Delayed Release Oral Capsule Duloxeti ne HCl 60 MG Duloxetine HCl 60 MG 10/24/2019 12:00:00 AM EST 1.0 {capsule} s uspended Duloxetine HCl 60 MG eCW1 ([facility]) duloxetine 30 MG Delayed Release Oral Capsule Duloxeti ne HCl 30 MG Duloxetine HCl 30 MG 10/24/2019 12:00:00 AM EST suspende d Duloxetine HCl 30 MG eCW1 ([facility]) duloxetine 60 MG Delayed Release Oral Capsule Duloxeti ne HCl 60 MG Duloxetine HCl 60 MG 10/24/2019 12:00:00 AM EST 1.0 {capsule} a ctive Duloxetine HCl 60 MG eCW1 ([facility]) duloxetine 60 MG Delayed Release Oral Capsule Duloxeti ne HCl 60 MG Duloxetine HCl 60 MG 10/24/2019 12:00:00 AM EST 1.0 {capsule} s uspended Duloxetine HCl 60 MG eCW1 ([facility]) duloxetine 30 MG Delayed Release Oral Capsule Duloxeti ne HCl 30 MG Duloxetine HCl 30 MG 10/24/2019 12:00:00 AM EST suspende d Duloxetine HCl 30 MG eCW1 ([facility]) duloxetine 30 MG Delayed Release Oral Capsule Duloxeti ne HCl 30 MG Duloxetine HCl 30 MG 10/24/2019 12:00:00 AM EST active Duloxetine HCl 30 MG eCW1 ([facility]) duloxetine 30 MG Delayed Release Oral Capsule Duloxeti ne HCl 30 MG Duloxetine HCl 30 MG 10/24/2019 12:00:00 AM EST suspende d Duloxetine HCl 30 MG eCW1 ([facility]) duloxetine 60 MG Delayed Release Oral Capsule Duloxeti ne HCl 60 MG Duloxetine HCl 60 MG 10/24/2019 12:00:00 AM EST 1.0 {capsule} s uspended Duloxetine HCl 60 MG eCW1 ([facility]) duloxetine 60 MG Delayed Release Oral Capsule Duloxeti ne HCl 60 MG Duloxetine HCl 60 MG 10/24/2019 12:00:00 AM EST active 1 capsule eCW1 ([facility]) duloxetine 60 MG Delayed Release Oral Capsule Duloxeti ne HCl 60 MG Duloxetine HCl 60 MG 10/24/2019 12:00:00 AM EST 1.0 {capsule} s uspended Duloxetine HCl 60 MG eCW1 ([facility]) duloxetine 30 MG Delayed Release Oral Capsule Duloxeti ne HCl 30 MG Duloxetine HCl 30 MG 10/24/2019 12:00:00 AM EST active Duloxetine HCl 30 MG eCW1 ([facility]) duloxetine 30 MG Delayed Release Oral Capsule Duloxeti ne HCl 30 MG Duloxetine HCl 30 MG 10/24/2019 12:00:00 AM EST suspende d Duloxetine HCl 30 MG eCW1 ([facility]) duloxetine 60 MG Delayed Release Oral Capsule Duloxeti ne HCl 60 MG Duloxetine HCl 60 MG 10/24/2019 12:00:00 AM EST 1.0 {capsule} s uspended Duloxetine HCl 60 MG eCW1 ([facility]) duloxetine 60 MG Delayed Release Oral Capsule Duloxeti ne HCl 60 MG Duloxetine HCl 60 MG 10/24/2019 12:00:00 AM EST 1.0 {capsule} s uspended Duloxetine HCl 60 MG eCW1 ([facility]) duloxetine 60 MG Delayed Release Oral Capsule Duloxeti ne HCl 60 MG Duloxetine HCl 60 MG 10/24/2019 12:00:00 AM EST active 1 capsule eCW1 ([facility]) duloxetine 60 MG Delayed Release Oral Capsule Duloxeti ne HCl 60 MG Duloxetine HCl 60 MG 10/24/2019 12:00:00 AM EST 1.0 {capsule} s uspended Duloxetine HCl 60 MG eCW1 ([facility]) duloxetine 60 MG Delayed Release Oral Capsule Duloxeti ne HCl 60 MG Duloxetine HCl 60 MG 10/24/2019 12:00:00 AM EST 1.0 {capsule} a ctive Duloxetine HCl 60 MG eCW1 ([facility]) duloxetine 60 MG Delayed Release Oral Capsule Duloxeti ne HCl 60 MG Duloxetine HCl 60 MG 10/24/2019 12:00:00 AM EST 1.0 {capsule} s uspended Duloxetine HCl 60 MG eCW1 ([facility]) duloxetine 60 MG Delayed Release Oral Capsule Duloxeti ne HCl 60 MG Duloxetine HCl 60 MG 10/24/2019 12:00:00 AM EST 1.0 {capsule} a ctive Duloxetine HCl 60 MG eCW1 ([facility]) duloxetine 60 MG Delayed Release Oral Capsule Duloxeti ne HCl 60 MG Duloxetine HCl 60 MG 10/24/2019 12:00:00 AM EST 1.0 {capsule} s uspended Duloxetine HCl 60 MG eCW1 ([facility]) duloxetine 30 MG Delayed Release Oral Capsule Duloxeti ne HCl 30 MG Duloxetine HCl 30 MG 10/24/2019 12:00:00 AM EST suspende d Duloxetine HCl 30 MG eCW1 ([facility]) duloxetine 60 MG Delayed Release Oral Capsule Duloxeti ne HCl 60 MG Duloxetine HCl 60 MG 10/24/2019 12:00:00 AM EST 1.0 {capsule} a ctive Duloxetine HCl 60 MG eCW1 ([facility]) duloxetine 30 MG Delayed Release Oral Capsule Duloxeti ne HCl 30 MG Duloxetine HCl 30 MG 10/24/2019 12:00:00 AM EST suspende d Duloxetine HCl 30 MG eCW1 ([facility]) duloxetine 60 MG Delayed Release Oral Capsule Duloxeti ne HCl 60 MG Duloxetine HCl 60 MG 10/24/2019 12:00:00 AM EST 1.0 {capsule} a ctive Duloxetine HCl 60 MG eCW1 ([facility]) duloxetine 60 MG Delayed Release Oral Capsule Duloxeti ne HCl 60 MG Duloxetine HCl 60 MG 10/24/2019 12:00:00 AM EST 1.0 {capsule} s uspended Duloxetine HCl 60 MG eCW1 ([facility]) duloxetine 60 MG Delayed Release Oral Capsule Duloxeti ne HCl 60 MG Duloxetine HCl 60 MG 10/24/2019 12:00:00 AM EST 1.0 {capsule} a ctive Duloxetine HCl 60 MG eCW1 ([facility]) duloxetine 30 MG Delayed Release Oral Capsule Duloxeti ne HCl 30 MG Duloxetine HCl 30 MG 10/24/2019 12:00:00 AM EST active Duloxetine HCl 30 MG eCW1 ([facility]) duloxetine 30 MG Delayed Release Oral Capsule Duloxeti ne HCl 30 MG Duloxetine HCl 30 MG 10/24/2019 12:00:00 AM EST active 1 capsule c -1 60mg capsule eCW1 ([facility]) duloxetine 60 MG Delayed Release Oral Capsule Duloxeti ne HCl 60 MG Duloxetine HCl 60 MG 10/24/2019 12:00:00 AM EST 1.0 {capsule} s uspended Duloxetine HCl 60 MG eCW1 ([facility]) duloxetine 60 MG Delayed Release Oral Capsule Duloxeti ne HCl 60 MG Duloxetine HCl 60 MG 10/24/2019 12:00:00 AM EST 1.0 {capsule} a ctive Duloxetine HCl 60 MG eCW1 ([facility]) duloxetine 30 MG Delayed Release Oral Capsule Duloxeti ne HCl 30 MG Duloxetine HCl 30 MG 10/24/2019 12:00:00 AM EST active Duloxetine HCl 30 MG eCW1 ([facility]) duloxetine 60 MG Delayed Release Oral Capsule Duloxeti ne HCl 60 MG Duloxetine HCl 60 MG 10/24/2019 12:00:00 AM EST 1.0 {capsule} a ctive Duloxetine HCl 60 MG eCW1 ([facility]) duloxetine 60 MG Delayed Release Oral Capsule Duloxeti ne HCl 60 MG Duloxetine HCl 60 MG 10/24/2019 12:00:00 AM EST 1.0 {capsule} s uspended Duloxetine HCl 60 MG eCW1 ([facility]) duloxetine 60 MG Delayed Release Oral Capsule Duloxeti ne HCl 60 MG Duloxetine HCl 60 MG 10/24/2019 12:00:00 AM EST 1.0 {capsule} a ctive Duloxetine HCl 60 MG eCW1 ([facility]) duloxetine 60 MG Delayed Release Oral Capsule Duloxeti ne HCl 60 MG Duloxetine HCl 60 MG 10/24/2019 12:00:00 AM EST 1.0 {capsule} s uspended Duloxetine HCl 60 MG eCW1 ([facility]) duloxetine 60 MG Delayed Release Oral Capsule Duloxeti ne HCl 60 MG Duloxetine HCl 60 MG 10/24/2019 12:00:00 AM EST 1.0 {capsule} s uspended Duloxetine HCl 60 MG eCW1 ([facility]) alogliptin 25 MG Oral Tablet Alogliptin Benzoate 25 MG Alogliptin Benzoate 25 MG 10/13/2019 12:00:00 AM EST active Alogliptin Benzoate 25 MG eCW1 ([facility]) alogliptin 6.25 MG Oral Tablet Alogliptin Benzoate 6.2 5 MG Alogliptin Benzoate 6.25 MG 10/13/2019 12:00:00 AM EST active 1 tab eCW1 ([facility]) alogliptin 6.25 MG Oral Tablet Alogliptin Benzoate 6.2 5 MG Alogliptin Benzoate 6.25 MG 10/13/2019 12:00:00 AM EST active Alogliptin Benzoate 6.25 MG eCW1 ([facility]) alogliptin 6.25 MG Oral Tablet Alogliptin Benzoate 6.2 5 MG Alogliptin Benzoate 6.25 MG 10/13/2019 12:00:00 AM EST active Alogliptin Benzoate 6.25 MG eCW1 ([facility]) alogliptin 25 MG Oral Tablet Alogliptin Benzoate 25 MG Alogliptin Benzoate 25 MG 10/13/2019 12:00:00 AM EST active Alogliptin Benzoate 25 MG eCW1 ([facility]) alogliptin 6.25 MG Oral Tablet Alogliptin Benzoate 6.2 5 MG Alogliptin Benzoate 6.25 MG 10/13/2019 12:00:00 AM EST active Alogliptin Benzoate 6.25 MG eCW1 ([facility]) alogliptin 6.25 MG Oral Tablet Alogliptin Benzoate 6.2 5 MG Alogliptin Benzoate 6.25 MG 10/13/2019 12:00:00 AM EST active Alogliptin Benzoate 6.25 MG eCW1 ([facility]) alogliptin 25 MG Oral Tablet Alogliptin Benzoate 25 MG Alogliptin Benzoate 25 MG 10/13/2019 12:00:00 AM EST active Alogliptin Benzoate 25 MG eCW1 ([facility]) alogliptin 6.25 MG Oral Tablet Alogliptin Benzoate 6.2 5 MG Alogliptin Benzoate 6.25 MG 10/13/2019 12:00:00 AM EST active Alogliptin Benzoate 6.25 MG eCW1 ([facility]) alogliptin 6.25 MG Oral Tablet Alogliptin Benzoate 6.2 5 MG Alogliptin Benzoate 6.25 MG 10/13/2019 12:00:00 AM EST active Alogliptin Benzoate 6.25 MG eCW1 ([facility]) alogliptin 6.25 MG Oral Tablet Alogliptin Benzoate 6.2 5 MG Alogliptin Benzoate 6.25 MG 10/13/2019 12:00:00 AM EST active Alogliptin Benzoate 6.25 MG eCW1 ([facility]) alogliptin 6.25 MG Oral Tablet Alogliptin Benzoate 6.2 5 MG Alogliptin Benzoate 6.25 MG 10/13/2019 12:00:00 AM EST active Alogliptin Benzoate 6.25 MG eCW1 ([facility]) alogliptin 6.25 MG Oral Tablet Alogliptin Benzoate 6.2 5 MG Alogliptin Benzoate 6.25 MG 10/13/2019 12:00:00 AM EST active Alogliptin Benzoate 6.25 MG eCW1 ([facility]) alogliptin 6.25 MG Oral Tablet Alogliptin Benzoate 6.2 5 MG Alogliptin Benzoate 6.25 MG 10/13/2019 12:00:00 AM EST active Alogliptin Benzoate 6.25 MG eCW1 ([facility]) alogliptin 25 MG Oral Tablet Alogliptin Benzoate 25 MG Alogliptin Benzoate 25 MG 10/13/2019 12:00:00 AM EST active Alogliptin Benzoate 25 MG eCW1 ([facility]) alogliptin 6.25 MG Oral Tablet Alogliptin Benzoate 6.2 5 MG Alogliptin Benzoate 6.25 MG 10/13/2019 12:00:00 AM EST active Alogliptin Benzoate 6.25 MG eCW1 ([facility]) alogliptin 6.25 MG Oral Tablet Alogliptin Benzoate 6.2 5 MG Alogliptin Benzoate 6.25 MG 10/13/2019 12:00:00 AM EST active 1 tab eCW1 ([facility]) alogliptin 6.25 MG Oral Tablet Alogliptin Benzoate 6.2 5 MG Alogliptin Benzoate 6.25 MG 10/13/2019 12:00:00 AM EST active Alogliptin Benzoate 6.25 MG eCW1 ([facility]) alogliptin 6.25 MG Oral Tablet Alogliptin Benzoate 6.2 5 MG Alogliptin Benzoate 6.25 MG 10/13/2019 12:00:00 AM EST active Alogliptin Benzoate 6.25 MG eCW1 ([facility]) alogliptin 25 MG Oral Tablet Alogliptin Benzoate 25 MG Alogliptin Benzoate 25 MG 10/13/2019 12:00:00 AM EST active Alogliptin Benzoate 25 MG eCW1 ([facility]) alogliptin 25 MG Oral Tablet Alogliptin Benzoate 25 MG Alogliptin Benzoate 25 MG 10/13/2019 12:00:00 AM EST active Alogliptin Benzoate 25 MG eCW1 ([facility]) Levofloxacin 750 MG Oral Tablet [Levaquin] Levaquin 750 MG L evaquin 750 MG 10/12/2019 12:00:00 AM EST 1.0 {tablet} suspended Levaquin 750 MG eCW1 ([facility]) Levofloxacin 750 MG Oral Tablet [Levaquin] Levaquin 750 MG L evaquin 750 MG 10/12/2019 12:00:00 AM EST 1.0 {tablet} suspended Levaquin 750 MG eCW1 ([facility]) Levofloxacin 750 MG Oral Tablet [Levaquin] Levaquin 750 MG L evaquin 750 MG 10/12/2019 12:00:00 AM EST 1.0 {tablet} suspended Levaquin 750 MG eCW1 ([facility]) Levofloxacin 750 MG Oral Tablet [Levaquin] Levaquin 750 MG L evaquin 750 MG 10/12/2019 12:00:00 AM EST 1.0 {tablet} suspended Levaquin 750 MG eCW1 ([facility]) Levofloxacin 750 MG Oral Tablet [Levaquin] Levaquin 750 MG L evaquin 750 MG 10/12/2019 12:00:00 AM EST 1.0 {tablet} suspended Levaquin 750 MG eCW1 ([facility]) Levofloxacin 750 MG Oral Tablet [Levaquin] Levaquin 750 MG L evaquin 750 MG 10/12/2019 12:00:00 AM EST active 1 tablet eCW1 ([facility]) Levofloxacin 750 MG Oral Tablet [Levaquin] Levaquin 750 MG L evaquin 750 MG 10/12/2019 12:00:00 AM EST suspended 1 tablet eCW1 ([facility]) sitagliptin 25 MG Oral Tablet [Januvia] Januvia 25 MG Januvi a 25 MG 09/21/2019 12:00:00 AM EST active as direc gabo eCW1 ([facility]) Famotidine 40 MG Oral Tablet [Pepcid] Pepcid 40 MG Pepcid 40 MG 09/07/2019 12:00:00 AM EST 1.0 {tablet_at_bedtime} active Pepcid 40 MG eCW1 ([facility]) Metoclopramide 5 MG Oral Tablet [Reglan] Reglan 5 MG Reglan 5 MG 09/07/2019 12:00:00 AM EST 1.0 {tablet_before_meals} active Reglan 5 MG eCW1 ([facility]) Probiotics UNK 09/07/2019 12:00:00 AM EST active 1-2tablet c each meal eCW1 ([facility]) Metoclopramide 5 MG Oral Tablet [Reglan] Reglan 5 MG Reglan 5 MG 09/07/2019 12:00:00 AM EST 1.0 {tablet_before_meals} suspended Reglan 5 MG eCW1 ([facility]) Metoclopramide 5 MG Oral Tablet [Reglan] Reglan 5 MG Reglan 5 MG 09/07/2019 12:00:00 AM EST 1.0 {tablet_before_meals} active Reglan 5 MG eCW1 ([facility]) Probiotics UNK 09/07/2019 12:00:00 AM EST suspend ed Probiotics eCW1 ([facility]) Probiotics UNK 09/07/2019 12:00:00 AM EST suspend ed Probiotics eCW1 ([facility]) Probiotics UNK 09/07/2019 12:00:00 AM EST suspend ed Probiotics eCW1 ([facility]) Metoclopramide 5 MG Oral Tablet [Reglan] Reglan 5 MG Reglan 5 MG 09/07/2019 12:00:00 AM EST 1.0 {tablet_before_meals} suspended Reglan 5 MG eCW1 ([facility]) Metoclopramide 5 MG Oral Tablet [Reglan] Reglan 5 MG Reglan 5 MG 09/07/2019 12:00:00 AM EST active 1 tablet before meals eCW1 ([facility]) Famotidine 40 MG Oral Tablet [Pepcid] Pepcid 40 MG Pepcid 40 MG 09/07/2019 12:00:00 AM EST 1.0 {tablet_at_bedtime} active Pepcid 40 MG eCW1 ([facility]) Famotidine 40 MG Oral Tablet [Pepcid] Pepcid 40 MG Pepcid 40 MG 09/07/2019 12:00:00 AM EST 1.0 {tablet_at_bedtime} active Pepcid 40 MG eCW1 ([facility]) Famotidine 40 MG Oral Tablet [Pepcid] Pepcid 40 MG Pepcid 40 MG 09/07/2019 12:00:00 AM EST 1.0 {tablet_at_bedtime} active Pepcid 40 MG eCW1 ([facility]) Famotidine 40 MG Oral Tablet [Pepcid] Pepcid 40 MG Pepcid 40 MG 09/07/2019 12:00:00 AM EST active 1 tablet at bedtime eCW1 ([facility]) Famotidine 40 MG Oral Tablet [Pepcid] Pepcid 40 MG Pepcid 40 MG 09/07/2019 12:00:00 AM EST 1.0 {tablet_at_bedtime} active Pepcid 40 MG eCW1 ([facility]) Probiotics UNK 09/07/2019 12:00:00 AM EST suspend ed Probiotics eCW1 ([facility]) Probiotics UNK 09/07/2019 12:00:00 AM EST active Probiotics eCW1 ([facility]) Famotidine 40 MG Oral Tablet [Pepcid] Pepcid 40 MG Pepcid 40 MG 09/07/2019 12:00:00 AM EST 1.0 {tablet_at_bedtime} active Pepcid 40 MG eCW1 ([facility]) Probiotics UNK 09/07/2019 12:00:00 AM EST active 1-2tablet c each meal eCW1 ([facility]) Famotidine 40 MG Oral Tablet [Pepcid] Pepcid 40 MG Pepcid 40 MG 09/07/2019 12:00:00 AM EST 1.0 {tablet_at_bedtime} active Pepcid 40 MG eCW1 ([facility]) Famotidine 40 MG Oral Tablet [Pepcid] Pepcid 40 MG Pepcid 40 MG 09/07/2019 12:00:00 AM EST 1.0 {tablet_at_bedtime} active Pepcid 40 MG eCW1 ([facility]) Famotidine 40 MG Oral Tablet [Pepcid] Pepcid 40 MG Pepcid 40 MG 09/07/2019 12:00:00 AM EST 1.0 {tablet_at_bedtime} active Pepcid 40 MG eCW1 ([facility]) Metoclopramide 5 MG Oral Tablet [Reglan] Reglan 5 MG Reglan 5 MG 09/07/2019 12:00:00 AM EST 1.0 {tablet_before_meals} suspended Reglan 5 MG eCW1 ([facility]) Famotidine 40 MG Oral Tablet [Pepcid] Pepcid 40 MG Pepcid 40 MG 09/07/2019 12:00:00 AM EST 1.0 {tablet_at_bedtime} active Pepcid 40 MG eCW1 ([facility]) Famotidine 40 MG Oral Tablet [Pepcid] Pepcid 40 MG Pepcid 40 MG 09/07/2019 12:00:00 AM EST active 1 tablet at bedtime eCW1 ([facility]) Famotidine 40 MG Oral Tablet [Pepcid] Pepcid 40 MG Pepcid 40 MG 09/07/2019 12:00:00 AM EST 1.0 {tablet_at_bedtime} active Pepcid 40 MG eCW1 ([facility]) Probiotics UNK 09/07/2019 12:00:00 AM EST active Probiotics eCW1 ([facility]) Famotidine 40 MG Oral Tablet [Pepcid] Pepcid 40 MG Pepcid 40 MG 09/07/2019 12:00:00 AM EST 1.0 {tablet_at_bedtime} active Pepcid 40 MG eCW1 ([facility]) Metoclopramide 5 MG Oral Tablet [Reglan] Reglan 5 MG Reglan 5 MG 09/07/2019 12:00:00 AM EST 1.0 {tablet_before_meals} suspended Reglan 5 MG eCW1 ([facility]) Probiotics UNK 09/07/2019 12:00:00 AM EST active Probiotics eCW1 ([facility]) Famotidine 40 MG Oral Tablet [Pepcid] Pepcid 40 MG Pepcid 40 MG 09/07/2019 12:00:00 AM EST 1.0 {tablet_at_bedtime} active Pepcid 40 MG eCW1 ([facility]) Metoclopramide 5 MG Oral Tablet [Reglan] Reglan 5 MG Reglan 5 MG 09/07/2019 12:00:00 AM EST 1.0 {tablet_before_meals} suspended Reglan 5 MG eCW1 ([facility]) Probiotics UNK 09/07/2019 12:00:00 AM EST active Probiotics eCW1 ([facility]) Metoclopramide 5 MG Oral Tablet [Reglan] Reglan 5 MG Reglan 5 MG 09/07/2019 12:00:00 AM EST 1.0 {tablet_before_meals} active Reglan 5 MG eCW1 ([facility]) Cheratussin AC 100-10 MG/5ML UNK 09/07/2019 12:00:00 AM EST active 5 ml eCW1 ([facility]) Famotidine 40 MG Oral Tablet [Pepcid] Pepcid 40 MG Pepcid 40 MG 09/07/2019 12:00:00 AM EST 1.0 {tablet_at_bedtime} active Pepcid 40 MG eCW1 ([facility]) Probiotics UNK 09/07/2019 12:00:00 AM EST suspend ed Probiotics eCW1 ([facility]) Metoclopramide 5 MG Oral Tablet [Reglan] Reglan 5 MG Reglan 5 MG 09/07/2019 12:00:00 AM EST 1.0 {tablet_before_meals} suspended Reglan 5 MG eCW1 ([facility]) Famotidine 40 MG Oral Tablet [Pepcid] Pepcid 40 MG Pepcid 40 MG 09/07/2019 12:00:00 AM EST 1.0 {tablet_at_bedtime} active Pepcid 40 MG eCW1 ([facility]) Famotidine 40 MG Oral Tablet [Pepcid] Pepcid 40 MG Pepcid 40 MG 09/07/2019 12:00:00 AM EST 1.0 {tablet_at_bedtime} active Pepcid 40 MG eCW1 ([facility]) Famotidine 40 MG Oral Tablet [Pepcid] Pepcid 40 MG Pepcid 40 MG 09/07/2019 12:00:00 AM EST 1.0 {tablet_at_bedtime} active Pepcid 40 MG eCW1 ([facility]) Famotidine 40 MG Oral Tablet [Pepcid] Pepcid 40 MG Pepcid 40 MG 09/07/2019 12:00:00 AM EST 1.0 {tablet_at_bedtime} active Pepcid 40 MG eCW1 ([facility]) Probiotics UNK 09/07/2019 12:00:00 AM EST active Probiotics eCW1 ([facility]) Probiotics UNK 09/07/2019 12:00:00 AM EST suspend ed Probiotics eCW1 ([facility]) Famotidine 40 MG Oral Tablet [Pepcid] Pepcid 40 MG Pepcid 40 MG 09/07/2019 12:00:00 AM EST active 1 tablet at bedtime eCW1 ([facility]) Famotidine 40 MG Oral Tablet [Pepcid] Pepcid 40 MG Pepcid 40 MG 09/07/2019 12:00:00 AM EST 1.0 {tablet_at_bedtime} active Pepcid 40 MG eCW1 ([facility]) Famotidine 40 MG Oral Tablet [Pepcid] Pepcid 40 MG Pepcid 40 MG 09/07/2019 12:00:00 AM EST 1.0 {tablet_at_bedtime} active Pepcid 40 MG eCW1 ([facility]) Famotidine 40 MG Oral Tablet [Pepcid] Pepcid 40 MG Pepcid 40 MG 09/07/2019 12:00:00 AM EST 1.0 {tablet_at_bedtime} active Pepcid 40 MG eCW1 ([facility]) Famotidine 40 MG Oral Tablet [Pepcid] Pepcid 40 MG Pepcid 40 MG 09/07/2019 12:00:00 AM EST 1.0 {tablet_at_bedtime} active Pepcid 40 MG eCW1 ([facility]) Famotidine 40 MG Oral Tablet [Pepcid] Pepcid 40 MG Pepcid 40 MG 09/07/2019 12:00:00 AM EST 1.0 {tablet_at_bedtime} active Pepcid 40 MG eCW1 ([facility]) Metoclopramide 5 MG Oral Tablet [Reglan] Reglan 5 MG Reglan 5 MG 09/07/2019 12:00:00 AM EST 1.0 {tablet_before_meals} suspended Reglan 5 MG eCW1 ([facility]) Probiotics UNK 09/07/2019 12:00:00 AM EST active 1-2tablet c each meal eCW1 ([facility]) Metoclopramide 5 MG Oral Tablet [Reglan] Reglan 5 MG Reglan 5 MG 09/07/2019 12:00:00 AM EST active 1 tablet before meals eCW1 ([facility]) Metoclopramide 5 MG Oral Tablet [Reglan] Reglan 5 MG Reglan 5 MG 09/07/2019 12:00:00 AM EST 1.0 {tablet_before_meals} active Reglan 5 MG eCW1 ([facility]) Famotidine 40 MG Oral Tablet [Pepcid] Pepcid 40 MG Pepcid 40 MG 09/07/2019 12:00:00 AM EST 1.0 {tablet_at_bedtime} active Pepcid 40 MG eCW1 ([facility]) Metoclopramide 5 MG Oral Tablet [Reglan] Reglan 5 MG Reglan 5 MG 09/07/2019 12:00:00 AM EST 1.0 {tablet_before_meals} active Reglan 5 MG eCW1 ([facility]) Famotidine 40 MG Oral Tablet [Pepcid] Pepcid 40 MG Pepcid 40 MG 09/07/2019 12:00:00 AM EST 1.0 {tablet_at_bedtime} active Pepcid 40 MG eCW1 ([facility]) Famotidine 40 MG Oral Tablet [Pepcid] Pepcid 40 MG Pepcid 40 MG 09/07/2019 12:00:00 AM EST 1.0 {tablet_at_bedtime} active Pepcid 40 MG eCW1 ([facility]) Famotidine 40 MG Oral Tablet [Pepcid] Pepcid 40 MG Pepcid 40 MG 09/07/2019 12:00:00 AM EST 1.0 {tablet_at_bedtime} active Pepcid 40 MG eCW1 ([facility]) Probiotics UNK 09/07/2019 12:00:00 AM EST active Probiotics eCW1 ([facility]) Probiotics UNK 09/07/2019 12:00:00 AM EST suspend ed Probiotics eCW1 ([facility]) Amoxicillin 500 MG Oral Tablet Amoxicillin 500 MG 09/07/2019 12:00: 00 AM EST active 2 tablet eCW1 ([facility]) Famotidine 40 MG Oral Tablet [Pepcid] Pepcid 40 MG Pepcid 40 MG 09/07/2019 12:00:00 AM EST 1.0 {tablet_at_bedtime} active Pepcid 40 MG eCW1 ([facility]) Metoclopramide 5 MG Oral Tablet [Reglan] Reglan 5 MG Reglan 5 MG 09/07/2019 12:00:00 AM EST 1.0 {tablet_before_meals} active Reglan 5 MG eCW1 ([facility]) Metoclopramide 5 MG Oral Tablet [Reglan] Reglan 5 MG Reglan 5 MG 09/07/2019 12:00:00 AM EST active 1 tablet before meals eCW1 ([facility]) Famotidine 40 MG Oral Tablet [Pepcid] Pepcid 40 MG Pepcid 40 MG 09/07/2019 12:00:00 AM EST 1.0 {tablet_at_bedtime} active Pepcid 40 MG eCW1 ([facility]) Famotidine 40 MG Oral Tablet [Pepcid] Pepcid 40 MG Pepcid 40 MG 09/07/2019 12:00:00 AM EST 1.0 {tablet_at_bedtime} active Pepcid 40 MG eCW1 ([facility]) Famotidine 40 MG Oral Tablet [Pepcid] Pepcid 40 MG Pepcid 40 MG 09/07/2019 12:00:00 AM EST 1.0 {tablet_at_bedtime} active Pepcid 40 MG eCW1 ([facility]) Famotidine 40 MG Oral Tablet [Pepcid] Pepcid 40 MG Pepcid 40 MG 09/07/2019 12:00:00 AM EST 1.0 {tablet_at_bedtime} active Pepcid 40 MG eCW1 ([facility]) benzonatate 100 MG Oral Capsule [Tessalon Perles] Sailaja jeremías Perles 100 MG Tessalon Perles 100 MG 09/07/2019 12:00:00 AM EST active 1 capsule as needed eCW1 ([facility]) Insurance Providers Payer name Policy type / Coverage type Policy ID Covered republican ID Covered republican's relationship to morales Policy Morales Plan Information [facility]) O [id number] S [id number] [employer] COMMUNITY [employer]AN [facility] [id number] SP [id number] [employer] COMMUNITY PLAN [facility] [id number] SP [id number] [employer] COMMUNITY PLAN [facility] [id number] SP [id number] Medicaid Dental P [id number] S [id number] [facility] [id number] SP [id number] [employer] COMMUNITY PLAN [facility] [id number] SP [id number] ANSI-Medicaid [id number] ANSI-Medicaid [id number] ANSI-Medicaid [id number] ANSI-Medicaid [id number] ANSI-Medicaid [id number] [employer] Hmo Commercial [id number] Self [id number] [employer] Hmo Commercial [id number] Self [id number] [employer] Hmo Commercial [id number] Self [id number] [employer] Hmo Commercial [id number] Self [id number] UNHC COMMUNITY PLAN MCDHMO [id number] SP [id number] Medicaid [place] Medigap Part B Self BS [facility] Plus Medigap Part B Self BS [place] Hmo Blue Option Medigap Part B Self [facility] Community Plan Commercial Self [facility] Community Plan Commercial Self [facility]) O [id number] S [id number] SELF PAY UNAVAILABLE SP UNAVAILA BLE [place] [id number] SP [id number] L[place] [id number] SP [id number] MEDICAID [id number] SP [id number] HMO BLUE [id number] SP [id number] HMO BLUE [id number] SP [id number] Problems, Conditions, and Diagnoses Code Display Name Description Problem Type Effective Dates Data Source(s) M46.1 Solitary sacroiliitis Sacroiliitis, not elsewhere clas sified Problem 07/18/2020 12:00:00 AM EDT eCW1 ([facility]) E11.65 Hyperglycemia due to type 2 diabetes alison litus Type 2 diabetes mellitus with hyperglycemia Problem 07/10/2020 12:00:00 AM EDT eCW1 ([facility]) Type 2 diabetes mellitus with diabetic p olyneuropathy Type 2 diabetes mellitus with diabetic polyneuropathy Problem 05/18/2020 12:00:00 AM EDT MEDE NT ([facility] [id number] Ingrowing nail Ingrowing nail Problem 05/18/2020 12:00: 00 AM EDT MEDENT ([facility] E16.2 [id number] Hypoglycemia Problem 03/28/2020 12:00:00 AM EDT eCW1 ([facility]) R29.6 [id number] Falls frequently Problem 02/15/2020 12:00:00 AM EDT eCW1 ([facility]) R29.6 [id number] Falls frequently Problem 02/15/2020 12:00:00 AM EDT eCW1 ([facility]) R32 [id number] Incontinence in female Problem 02/14/2020 12 :00:00 AM EDT eCW1 ([facility]) R32 [id number] Incontinence in female Problem 02/14/2020 12 :00:00 AM EDT eCW1 ([facility]) N39.46 [id number] Mixed stress and urge urinary incontinenc e Problem 02/08/2020 12:00:00 AM EDT eCW1 ([facility]) N39.46 [id number] Mixed stress and urge urinary incontinenc e Problem 02/08/2020 12:00:00 AM EDT eCW1 ([facility]) M51.36 59130393 DDD (degenerative disc disease), lumbar P roblem 01/18/2020 12:00:00 AM EDT eCW1 ([facility]) N95.0 13510177 Postmenopausal vaginal bleeding Problem 01/18/2020 12:00:00 AM EDT eCW1 ([facility]) M51.36 [id number] DDD (degenerative disc disease), lumbar P roblem 01/18/2020 12:00:00 AM EDT eCW1 ([facility]) N95.0 50118418 PMB (postmenopausal bleeding) Problem 2019 12:00:00 AM EDT eCW1 ([facility]) N95.0 45464610 PMB (postmenopausal bleeding) Problem 2019 12:00:00 AM EDT eCW1 ([facility]) G89.29 27330025 Other chronic pain Problem 10/24/2019 12:00: 00 AM EST eCW1 ([facility]) G89.29 96450925 Other chronic pain Problem 10/24/2019 12:00: 00 AM EST eCW1 ([facility]) Surgeries/Procedures Procedure Description Date Indications Data Source(s) DEBRIDEMENT NAIL ANY METHOD 07/15/2020 12:00:00 AM EDT [facility] ([facility] DEBRIDEMENT NAIL ANY METHOD 05/06/2020 12:00:00 AM EDT [facility] ([facility] Office Visit, Est Pt., Level 4 PC 10/12/2019 12:00:00 AM EST eCW1 ([facility]) Influenza A+B 10/12/2019 12:00:00 AM EST eCW1 ([facility]) TRANS CARE MGMT 7 DAY DISCH 09/07/2019 12:00:00 AM EST eCW1 ([facility]) Results ID Date Data Source [id number] 10/01/2020 11:28:00 AM EST [facility] Name Value Range Interpretation Code Description Data Debbi rce(s) Supporting Document(s) SARS-CoV-2 (COVID 19) NEGATIVE - SARS-CoV-2 (COVID19) [facility] This lab was ordered by [facility] a nd reported by [facility]. ID Date Data Source RESPIRATORY PANEL 10/01/2020 12:00:00 AM EST eCW1 ([facility]) Name Value Range Interpretation Code Description Data Debbi rce(s) Supporting Document(s) This respiratory PCR panel detects Influenza A H1, H3 and RESPIRATORY PANEL eCW1 ([facility]) ID Date Data Source [id number] 09/19/2020 02:43:00 PM EST [facility] Name Value Range Interpretation Code Description Data Debbi rce(s) Supporting Document(s) SARS coronavirus 2 RNA [Presence] in Res piratory specimen by AMANDEEP with probe detection [facility] This lab was ordered by [facility] a nd reported by [facility]. ID Date Data Source URINE CULTURE 09/09/2020 12:00:00 AM EST eCW1 ([facility]) Name Value Range Interpretation Code Description Data Debbi rce(s) Supporting Document(s) URINE CULTURE eCW1 ([facility]) ID Date Data Source UA URINALYSIS 09/09/2020 12:00:00 AM EST eCW1 ([facility]) Name Value Range Interpretation Code Description Data Debbi rce(s) Supporting Document(s) UA URINALYSIS eCW1 ([facility]) ID Date Data Source Comprehensive Metabolic Profile (CMP) 07/10/2020 06:37:14 AM EDT eCW1 ([facility]) Name Value Range Interpretation Code Description Data Debbi rce(s) Supporting Document(s) 260 GLUCOSE, FASTING eCW1 ([facility]) 49.6 GLOMERULAR FILTRATION RATE eCW 1 ([facility]) 134 SODIUM LEVEL eCW1 ([facility]) 15 BLOOD UREA NITROGEN eCW1 ([facility]) 1.18 CREATININE FOR GFR eCW1 ([facility]) 4.7 POTASSIUM SERUM eCW1 ([facility]) 96 CHLORIDE LEVEL eCW1 ([facility]) 30 CARBON DIOXIDE LEVEL eCW1 ([facility]) 15 ALT/SGPT eCW1 ([facility]) 9.7 CALCIUM LEVEL eCW1 ([facility]) 84 ALKALINE PHOSPHATASE eCW1 ([facility]) 10 AST/SGOT eCW1 ([facility]) 3.4 ALBUMIN eCW1 ([facility]) 0.8 ALBUMIN/GLOBULIN RATIO eCW1 ([facility]) 7.9 TOTAL PROTEIN eCW1 ([facility]) 0.3 BILIRUBIN,TOTAL eCW1 ([facility]) ID Date Data Source [id number] 01/17/2020 12:00:00 AM EDT eCW1 ([facility]) Name Value Range Interpretation Code Description Data Debbi rce(s) Supporting Document(s) Hemoglobin A1c/Hemoglobin.total in Blood 10.6 HEMOGLOBIN A1c eCW1 ([facility]) ID Date Data Source NT-PRO BNP 01/17/2020 12:00:00 AM EDT eCW1 ([facility]) Name Value Range Interpretation Code Description Data Debbi rce(s) Supporting Document(s) 183 <125 NT-PRO BNP eCW1 ([facility]) Procedure Social History Code Duration Value Status Description Data Source(s ) Smoking 10/01/2020 12:00:00 AM EST Never Smoker completed Never S moker eCW1 ([facility]) Smoking 10/01/2020 12:00:00 AM EST Never Smoker completed Never S moker eCW1 ([facility]) Smoking 09/09/2020 12:00:00 AM EST Never Smoker completed Never S moker eCW1 ([facility]) Smoking 09/09/2020 12:00:00 AM EST Never Smoker completed Never S moker eCW1 ([facility]) Smoking 09/09/2020 12:00:00 AM EST Never Smoker completed Never S moker eCW1 ([facility]) Smoking 09/09/2020 12:00:00 AM EST Never Smoker completed Never S moker eCW1 ([facility]) Smoking 09/09/2020 12:00:00 AM EST Never Smoker completed Never S moker eCW1 ([facility]) Smoking 09/09/2020 12:00:00 AM EST Never Smoker completed Never S moker eCW1 ([facility]) Smoking 07/30/2020 12:00:00 AM EST Never Smoker completed Never S moker eCW1 ([facility]) Smoking 07/30/2020 12:00:00 AM EST Never Smoker completed Never S moker eCW1 ([facility]) Smoking 07/30/2020 12:00:00 AM EST Never Smoker completed Never S moker eCW1 ([facility]) Smoking 07/30/2020 12:00:00 AM EST Never Smoker completed Never S moker eCW1 ([facility]) Smoking 07/30/2020 12:00:00 AM EST Never Smoker completed Never S moker eCW1 ([facility]) Smoking 07/30/2020 12:00:00 AM EST Never Smoker completed Never S moker eCW1 ([facility]) Smoking 07/18/2020 12:00:00 AM EDT Never Smoker completed Never S moker eCW1 ([facility]) Smoking 07/18/2020 12:00:00 AM EDT Never Smoker completed Never S moker eCW1 ([facility]) Smoking 07/18/2020 12:00:00 AM EDT Never Smoker completed Never S moker eCW1 ([facility]) Smoking 07/17/2020 12:00:00 AM EDT Never Smoker completed Never S moker eCW1 ([facility]) Smoking 07/10/2020 12:00:00 AM EDT Never Smoker completed Never S moker eCW1 ([facility]) Smoking 03/28/2020 12:00:00 AM EDT Never Smoker completed Never S moker eCW1 ([facility]) Smoking 03/28/2020 12:00:00 AM EDT Never Smoker completed Never S moker eCW1 ([facility]) Smoking 03/28/2020 12:00:00 AM EDT Never Smoker completed Never S moker eCW1 ([facility]) Smoking 03/28/2020 12:00:00 AM EDT Never Smoker completed Never S moker eCW1 ([facility]) Smoking 03/28/2020 12:00:00 AM EDT Never Smoker completed Never S moker eCW1 ([facility]) Smoking 03/28/2020 12:00:00 AM EDT Never Smoker completed Never S moker eCW1 ([facility]) Smoking 03/28/2020 12:00:00 AM EDT Never Smoker completed Never S moker eCW1 ([facility]) Smoking 03/28/2020 12:00:00 AM EDT Never Smoker completed Never S moker eCW1 ([facility]) Smoking 02/15/2020 12:00:00 AM EDT Never Smoker completed Never S moker eCW1 ([facility]) Smoking 02/15/2020 12:00:00 AM EDT Never Smoker completed Never S moker eCW1 ([facility]) Smoking 02/15/2020 12:00:00 AM EDT Never Smoker completed Never S moker eCW1 ([facility]) Smoking 02/15/2020 12:00:00 AM EDT Never Smoker completed Never S moker eCW1 ([facility]) Smoking 02/15/2020 12:00:00 AM EDT Never Smoker completed Never S moker eCW1 ([facility]) Vital Signs ID Date Data Source UNK Name Value Range Interpretation Code Description Data Source(s) Diastolic blood pressure 80 mm[Hg] 80 mm[Hg] eCW1 ([facility]) Systolic blood pressure 120 mm[Hg] 120 mm[Hg] e CW1 ([facility]) Body temperature 97.5 [degF] 97.5 [degF] eCW1 ( [facility]) Respiratory rate 20 /min 20 /min eCW1 ([facility]) Heart rate 116 /min 116 /min eCW1 [facility] Body mass index (BMI) [Ratio] 52.33 kg/m2 52.33 kg/m2 eCW1 ([facility]) Body height 61 [in_i] 61 [in_i] eCW1 ([facility]) Body weight 277 [lb_av] 277 [lb_av] eCW1 ([facility]) Diastolic blood pressure 80 mm[Hg] 80 mm[Hg] eCW1 ([facility]) Systolic blood pressure 140 mm[Hg] 140 mm[Hg] e CW1 ([facility]) Body temperature 96.6 [degF] 96.6 [degF] eCW1 ( [facility]) Respiratory rate 20 /min 20 /min eCW1 ([facility]) Heart rate 100 /min 100 /min eCW1 ([facility] Body mass index (BMI) [Ratio] 52.52 kg/m2 52.52 kg/m2 eCW1 ([facility]) Body height 61 [in_i] 61 [in_i] eCW1 ([facility]) Body weight 278 [lb_av] 278 [lb_av] eCW1 ([facility]) Diastolic blood pressure 82 mm[Hg] 82 mm[Hg] eCW1 ([facility]) Systolic blood pressure 132 mm[Hg] 132 mm[Hg] e CW1 ([facility]) Body temperature 97.4 [degF] 97.4 [degF] eCW1 ( [facility]) Respiratory rate 20 /min 20 /min eCW1 ([facility]) Heart rate 99 /min 99 /min eCW1 ([facility]) Body mass index (BMI) [Ratio] 52.26 kg/m2 52.26 kg/m2 eCW1 ([facility]) Body height 61 [in_i] 61 [in_i] eCW1 ([facility]) Body weight 276.6 [lb_av] 276.6 [lb_av] eCW1 ([facility]) Diastolic blood pressure 91 mm[Hg] 91 mm[Hg] eCW1 ([facility]) Systolic blood pressure 143 mm[Hg] 143 mm[Hg] e CW1 ([facility]) Body temperature 97.4 [degF] 97.4 [degF] eCW1 ( [facility]) Respiratory rate 20 /min 20 /min eCW1 ([facility]) Heart rate 93 /min 93 /min eCW1 ([facility]) Body mass index (BMI) [Ratio] 50.44 kg/m2 50.44 kg/m2 W1 ([facility]) Body height 61 [in_i] 61 [in_i] eCW1 ([facility]) Body weight 267 [lb_av] 267 [lb_av] eCW1 ([facility]) Diastolic blood pressure 78 mm[Hg] 78 mm[Hg] eCW1 ([facility]) Systolic blood pressure 134 mm[Hg] 134 mm[Hg] e CW1 ([facility]) Body temperature 97.4 [degF] 97.4 [degF] eCW1 ( [facility]) Respiratory rate 22 /min 22 /min eCW1 ([facility]) Heart rate 100 /min 100 /min eCW1 ([facility]) Body mass index (BMI) [Ratio] 51.88 kg/m2 51.88 kg/m2 eCW1 ([facility]) Body height 61 [in_i] 61 [in_i] eCW1 ([facility]) Body weight 274.6 [lb_av] 274.6 [lb_av] eCW1 ([facility]) Body mass index (BMI) [Ratio] 41.3 kg/m2 41.3 k g/m2 MEDENT ([facility] Heart rate 95 /min 95 /min MEDENT ([facility] Diastolic blood pressure 80 mm[Hg] 80 mm[Hg] MEDENT ([facility] Systolic blood pressure 138 mm[Hg] 138 mm[Hg] M EDENT ([facility] Body weight 226.00 [lb_av] 226.00 [lb_av] MEDEN T ([facility] Body height 62 [in_i] 62 [in_i] MEDENT ([facility] 5'2" Diastolic blood pressure 76 mm[Hg] 76 mm[Hg] eCW1 ([facility]) Systolic blood pressure 130 mm[Hg] 130 mm[Hg] e CW1 ([facility]) Body temperature 97.5 [degF] 97.5 [degF] eCW1 ( [facility]) Respiratory rate 22 /min 22 /min eCW1 ([facility]) Heart rate 122 /min 122 /min eCW1 ([facility]) Body mass index (BMI) [Ratio] 50.86 kg/m2 50.86 kg/m2 W1 ([facility]) Body height 61 [in_i] 61 [in_i] eCW1 ([facility]) Body weight 269.2 [lb_av] 269.2 [lb_av] eCW1 ([facility]) Systolic blood pressure 136 mm[Hg] 136 mm[Hg] e CW1 ([facility]) Body temperature 96.9 [degF] 96.9 [degF] eCW1 ( [facility]) Respiratory rate 24 /min 24 /min eCW1 ([facility]) Heart rate 120 /min 120 /min eCW1 ([facility]) Body mass index (BMI) [Ratio] 50.90 kg/m2 50.90 kg/m2 eCW1 ([facility]) Body height 61 [in_i] 61 [in_i] eCW1 ([facility]) Body weight 269.4 [lb_av] 269.4 [lb_av] eCW1 ([facility]) Diastolic blood pressure 70 mm[Hg] 70 mm[Hg] eCW1 ([facility]) Diastolic blood pressure 78 mm[Hg] 78 mm[Hg] eCW1 ([facility]) Systolic blood pressure 128 mm[Hg] 128 mm[Hg] e CW1 ([facility]) Body temperature 97.7 [degF] 97.7 [degF] eCW1 ( [facility]) Respiratory rate 22 /min 22 /min eCW1 ([facility]) Heart rate 125 /min 125 /min eCW1 ([facility]) Body mass index (BMI) [Ratio] 50.90 kg/m2 50.90 kg/m2 eCW1 ([facility]) Body height 61 [in_us] 61 [in_us] eCW1 ([facility]) Body weight Measured 269.4 [lb_av] 269.4 [lb_av ] eCW1 ([facility]) Diastolic blood pressure 80 mm[Hg] 80 mm[Hg] eCW1 ([facility]) Systolic blood pressure 132 mm[Hg] 132 mm[Hg] e CW1 ([facility]) Body temperature 98.3 [degF] 98.3 [degF] eCW1 ( [facility]) Respiratory rate 22 /min 22 /min eCW1 ([facility]) Heart rate 106 /min 106 /min eCW1 ([facility]) Body mass index (BMI) [Ratio] 51.09 kg/m2 51.09 kg/m2 eCW1 ([facility]) Body height 61 [in_us] 61 [in_us] eCW1 ([facility]) Body weight Measured 270.4 [lb_av] 270.4 [lb_av ] eCW1 ([facility]) Diastolic blood pressure 70 mm[Hg] 70 mm[Hg] eCW1 ([facility]) Systolic blood pressure 120 mm[Hg] 120 mm[Hg] e CW1 ([facility]) Body temperature 98.0 [degF] 98.0 [degF] eCW1 ( [facility]) Respiratory rate 22 /min 22 /min eCW1 ([facility]) Heart rate 118 /min 118 /min eCW1 ([facility]) Body mass index (BMI) [Ratio] 49.73 kg/m2 49.73 kg/m2 eCW1 ([facility]) Body height 61 [in_us] 61 [in_us] eCW1 ([facility]) Body weight Measured 263.2 [lb_av] 263.2 [lb_av ] eCW1 ([facility]) Patient Treatment Plan of Care Planned Activity Planned Date Details Description Data Source (s) Fluconazole 150 MG Oral Tablet 09/09/2020 12:00:00 AM EST eCW1 ([facility]) Fluconazole 150 MG Oral Tablet 09/09/2020 12:00:00 AM EST eCW1 ([facility]) Fluconazole 150 MG Oral Tablet 09/09/2020 12:00:00 AM EST eCW1 ([facility]) Fluconazole 150 MG Oral Tablet 09/09/2020 12:00:00 AM EST eCW1 ([facility]) Fluconazole 150 MG Oral Tablet 09/09/2020 12:00:00 AM EST eCW1 ([facility]) Fluconazole 150 MG Oral Tablet 09/09/2020 12:00:00 AM EST eCW1 ([facility]) celecoxib 100 MG Oral Capsule [Celebrex] 07/18/2020 12:00:00 AM EDT eCW1 ([facility]) celecoxib 100 MG Oral Capsule [Celebrex] 07/18/2020 12:00:00 AM EDT eCW1 ([facility]) celecoxib 100 MG Oral Capsule [Celebrex] 07/18/2020 12:00:00 AM EDT eCW1 ([facility]) celecoxib 100 MG Oral Capsule [Celebrex] 07/18/2020 12:00:00 AM EDT eCW1 ([facility]) celecoxib 100 MG Oral Capsule [Celebrex] 07/18/2020 12:00:00 AM EDT eCW1 ([facility]) celecoxib 100 MG Oral Capsule [Celebrex] 07/18/2020 12:00:00 AM EDT eCW1 ([facility]) celecoxib 100 MG Oral Capsule [Celebrex] 07/18/2020 12:00:00 AM EDT eCW1 ([facility]) celecoxib 100 MG Oral Capsule [Celebrex] 07/18/2020 12:00:00 AM EDT eCW1 ([facility]) celecoxib 100 MG Oral Capsule [Celebrex] 07/18/2020 12:00:00 AM EDT eCW1 ([facility]) May Have - 02/26/2020 12:00:00 AM EDT e CW1 ([facility]) May Have - 02/26/2020 12:00:00 AM EDT e CW1 ([facility]) May Have - 02/26/2020 12:00:00 AM EDT e CW1 ([facility]) May Have - 02/26/2020 12:00:00 AM EDT e CW1 ([facility]) May Have - 02/26/2020 12:00:00 AM EDT e CW1 ([facility]) May Have - 02/26/2020 12:00:00 AM EDT e CW1 ([facility]) May Have - 02/26/2020 12:00:00 AM EDT e CW1 ([facility]) May Have - 02/26/2020 12:00:00 AM EDT e CW1 ([facility]) May Have - 02/26/2020 12:00:00 AM EDT e CW1 ([facility]) May Have - 02/26/2020 12:00:00 AM EDT e CW1 ([facility]) Prednisone 20 MG Oral Tablet 02/15/2020 12:00:00 AM EDT eCW1 ([facility]) Amoxicillin 875 MG / Clavulanate 125 MG Oral Tablet 02/15/20 20 12:00:00 AM EDT eCW1 ([facility]) Amoxicillin 875 MG / Clavulanate 125 MG Oral Tablet 02/15/20 20 12:00:00 AM EDT eCW1 ([facility]) Prednisone 20 MG Oral Tablet 02/15/2020 12:00:00 AM EDT eCW1 ([facility]) Amoxicillin 875 MG / Clavulanate 125 MG Oral Tablet 02/15/20 20 12:00:00 AM EDT eCW1 ([facility]) Prednisone 20 MG Oral Tablet 02/15/2020 12:00:00 AM EDT eCW1 ([facility]) Amoxicillin 875 MG / Clavulanate 125 MG Oral Tablet 02/15/20 20 12:00:00 AM EDT eCW1 ([facility]) Prednisone 20 MG Oral Tablet 02/15/2020 12:00:00 AM EDT eCW1 ([facility]) Amoxicillin 875 MG / Clavulanate 125 MG Oral Tablet 02/15/20 20 12:00:00 AM EDT eCW1 ([facility]) Prednisone 20 MG Oral Tablet 02/15/2020 12:00:00 AM EDT eCW1 ([facility]) Oxybutynin chloride 5 MG Oral Tablet 02/14/2020 12:00:00 AM EDT eCW1 ([facility]) Chux 02/08/2020 12:00:00 AM EDT e CW1 ([facility]) Chux 02/08/2020 12:00:00 AM EDT e CW1 ([facility]) Chux 02/08/2020 12:00:00 AM EDT e CW1 ([facility]) Chux 02/08/2020 12:00:00 AM EDT e CW1 ([facility]) Chux 02/08/2020 12:00:00 AM EDT e CW1 ([facility]) Nystatin 146472 UNT/ML Oral Suspension 01/29/2020 12:00:00 AM EDT eCW1 ([facility]) Acetaminophen 325 MG / Hydrocodone Bitartrate 5 MG Ora l Tablet 01/25/2020 12:00:00 AM EDT eCW1 ([facility]) Ultra Thin Pen [place] 31G X 5 MM 01/18/2020 12:00:00 AM EDT eCW1 ([facility]) Ultra Thin Pen [place] 31G X 5 MM 01/18/2020 12:00:00 AM EDT eCW1 ([facility]) Ultra Thin Pen [place] 31G X 5 MM 01/18/2020 12:00:00 AM EDT eCW1 ([facility]) Ultra Thin Pen [place] 31G X 5 MM 01/18/2020 12:00:00 AM EDT eCW1 ([facility]) Ultra Thin Pen [place] 31G X 5 MM 01/18/2020 12:00:00 AM EDT eCW1 ([facility]) Ultra Thin Pen [place] 31G X 5 MM 01/18/2020 12:00:00 AM EDT eCW1 ([facility]) Ultra Thin Pen [place] 31G X 5 MM 01/18/2020 12:00:00 AM EDT eCW1 ([facility]) tizanidine 4 MG Oral Tablet 01/17/2020 12:00:00 AM EDT eCW1 ([facility]) Lidocaine HCl 4 % 01/17/2020 12:00:00 AM EDT eCW1 ([facility]) tizanidine 4 MG Oral Tablet 01/17/2020 12:00:00 AM EDT eCW1 ([facility]) Lidocaine HCl 4 % 01/17/2020 12:00:00 AM EDT eCW1 ([facility]) tizanidine 4 MG Oral Tablet 01/17/2020 12:00:00 AM EDT eCW1 ([facility]) Lidocaine HCl 4 % 01/17/2020 12:00:00 AM EDT eCW1 ([facility]) tizanidine 4 MG Oral Tablet 01/17/2020 12:00:00 AM EDT eCW1 ([facility]) Lidocaine HCl 4 % 01/17/2020 12:00:00 AM EDT eCW1 ([facility]) tizanidine 4 MG Oral Tablet 01/17/2020 12:00:00 AM EDT eCW1 ([facility]) tizanidine 4 MG Oral Tablet 01/17/2020 12:00:00 AM EDT eCW1 ([facility]) Lidocaine HCl 4 % 01/17/2020 12:00:00 AM EDT eCW1 ([facility]) tizanidine 4 MG Oral Tablet 01/17/2020 12:00:00 AM EDT eCW1 ([facility]) Lidocaine HCl 4 % 01/17/2020 12:00:00 AM EDT eCW1 ([facility]) tizanidine 4 MG Oral Tablet 01/17/2020 12:00:00 AM EDT eCW1 ([facility]) tizanidine 4 MG Oral Tablet 01/17/2020 12:00:00 AM EDT eCW1 ([facility]) tizanidine 4 MG Oral Tablet 01/17/2020 12:00:00 AM EDT eCW1 ([facility]) gabapentin 400 MG Oral Capsule 01/17/2020 12:00:00 AM EDT eCW1 ([facility]) tizanidine 4 MG Oral Tablet 01/17/2020 12:00:00 AM EDT eCW1 ([facility]) gabapentin 400 MG Oral Capsule 01/17/2020 12:00:00 AM EDT eCW1 ([facility]) gabapentin 400 MG Oral Capsule 01/17/2020 12:00:00 AM EDT eCW1 ([facility]) tizanidine 4 MG Oral Tablet 01/17/2020 12:00:00 AM EDT eCW1 ([facility]) Lidocaine HCl 4 % 01/17/2020 12:00:00 AM EDT eCW1 ([facility]) tizanidine 4 MG Oral Tablet 01/17/2020 12:00:00 AM EDT eCW1 ([facility]) gabapentin 400 MG Oral Capsule 01/17/2020 12:00:00 AM EDT eCW1 ([facility]) tizanidine 4 MG Oral Tablet 01/17/2020 12:00:00 AM EDT eCW1 ([facility]) gabapentin 400 MG Oral Capsule 01/17/2020 12:00:00 AM EDT eCW1 ([facility]) duloxetine 60 MG Delayed Release Oral Capsule 10/24/2019 12:00:00 A M EST eCW1 ([facility]) duloxetine 30 MG Delayed Release Oral Capsule 10/24/2019 12:00:00 A M EST eCW1 ([facility]) alogliptin 25 MG Oral Tablet 10/13/2019 12:00:00 AM EST eCW1 ([facility]) alogliptin 6.25 MG Oral Tablet 10/13/2019 12:00:00 AM EST eCW1 ([facility]) alogliptin 25 MG Oral Tablet 10/13/2019 12:00:00 AM EST eCW1 ([facility]) alogliptin 6.25 MG Oral Tablet 10/13/2019 12:00:00 AM EST eCW1 ([facility]) alogliptin 6.25 MG Oral Tablet 10/13/2019 12:00:00 AM EST eCW1 ([facility]) alogliptin 6.25 MG Oral Tablet 10/13/2019 12:00:00 AM EST eCW1 ([facility]) alogliptin 6.25 MG Oral Tablet 10/13/2019 12:00:00 AM EST eCW1 ([facility]) alogliptin 6.25 MG Oral Tablet 10/13/2019 12:00:00 AM EST eCW1 ([facility]) alogliptin 6.25 MG Oral Tablet 10/13/2019 12:00:00 AM EST eCW1 ([facility]) alogliptin 6.25 MG Oral Tablet 10/13/2019 12:00:00 AM EST eCW1 ([facility]) alogliptin 6.25 MG Oral Tablet 10/13/2019 12:00:00 AM EST eCW1 ([facility]) alogliptin 6.25 MG Oral Tablet 10/13/2019 12:00:00 AM EST eCW1 ([facility]) Levofloxacin 750 MG Oral Tablet [Levaquin] 10/12/2019 12:00:[address] eCW1 ([facility]) sitagliptin 25 MG Oral Tablet [Januvia] 09/21/2019 12:00:00 AM EST eCW1 ([facility]) Cheratussin AC 100-10 MG/5ML 09/07/2019 12:00:00 AM EST eCW1 ([facility]) Probiotics 09/07/2019 12:00:00 AM EST e CW1 ([facility]) Amoxicillin 500 MG Oral Tablet 09/07/2019 12:00:00 AM EST eCW1 ([facility]) Metoclopramide 5 MG Oral Tablet [Reglan] 09/07/2019 12:00:00 AM EST eCW1 ([facility]) benzonatate 100 MG Oral Capsule [Tessalon Perles] 09/07/2019 12: 00:00 AM EST eCW1 ([facility]) Famotidine 40 MG Oral Tablet [Pepcid] 09/07/2019 12:00:00 AM EST eCW1 ([facility])
[2020-10-16] MEDS ORDERED: ULTR50TA8 PO (16:21)
[2020-10-16] MEDS ORDERED: FURO40TA2 PO (17:30)
[2020-10-16] MEDS ORDERED: BUSP15TA47 PO (17:30)
[2020-10-16] MEDS ORDERED: ASPI81TA27 PO (17:31)
[2020-10-16] MEDS ORDERED: POLYVINYL ALCOHOL OPHTH SOLN 15 ML(LIQUITEARS) OU PRN (19:00)
--- NOTE | 2020-10-16 19:02 | HPEPDOC ---
[facility] Medical History & Physical Date of Admission Oct 16, 2020 Date of Service: Oct 16, 2020 History and Physical CHIEF COMPLAINT: Left knee pain HISTORY OF PRESENT ILLNESS: 59-year-old female with significant arthritis of her knee presents due to uncontrollable left knee pain preventing her from ambulating at home using her walker. Patient tells me that this pain has been ongoing for years but lately been getting worse the left knee is worse than the right knee. Tells me she's tried a steroid injection in her knee approximately 3 years ago and it helped but she hasn't tried it since. She says that today at home she twisted her knee and that exacerbated her pain she describes the pain as 8 out of 10 very uncomfortable and unable to use her walker to ambulate. Patient otherwise feels well and was planned to be discharged home from the emergency department however she was only able to walk a few feet and was deemed unsafe to be discharged from there patient will be admitted to the medical service for evaluation by physical therapy and pain management PAST MEDICAL/SURGICAL HISTORY: Seizure disorder Fibromyalgia Hypothyroidism Insulin-dependent diabetes Arthritis Tubal ligation SOCIAL HISTORY: Denies alcohol use Denies tobacco use Denies illicit drug use FAMILY HISTORY: Reviewed and noncontributory to this admission. Mother has CHF. Dad has Ckd ALLERGIES: Please see below. REVIEW OF SYSTEMS: 10 point review of systems complete all negative otherwise stated in HPI HOME MEDICATIONS: Please see below. PHYSICAL EXAMINATION: Constitutional: Awake and alert, in no apparent distress, obese female ENT: Sclera are clear. Mucosa is moist. Respiratory: Lungs CTA bilaterally. No respiratory distress. No use of accessory muscles. Cardiovascular: RRR S1 and S2 are normal, no murmur Gastrointestinal: Abdomen is soft, obese, non distended, non tender Musculoskeletal: Very large lower extremities mostly fatty tissue very large diameter of both legs they are symmetrical. Left knee is tender to manipulation. Difficult to examine accurately due to her large body habitus and large leg size. Neurologic: No focal neurological deficit. Mental Status: A&O x3, normal affect Skin: Warm, dry LABORATORY DATA: See below. IMAGING: The x-ray impressions:Advanced 3 compartment osteoarthritis of the left knee. Diffuse osteopenia MICROBIOLOGY: Please see below. ASSESSMENT/PLAN 59-year-old female with significant arthritis of her knee presents due to un controllable left knee pain preventing her from ambulating at home using her walker.admitted to the medical service for evaluation by physical therapy and pain management # Left knee arthritis: Evaluation by physical therapy. Pain control. We'll refer her to outpatient follow-up with orthopedic surgery. # Congestive heart failure: Not in exacerbation. Continue home medications inc quita Lasix. # DM: ISS. Frequent Accu-Cheks. Hypoglycemic precautions. Levemir 25 units twice a day. # Seizure disorder: Continue Depakote # Anxiety/depression: Continue home medications # Hypertension: Continue home meds. Monitor and titrate # Hypothyroidism: resume Synthroid. # DVT prophylaxis: Heparin A Youse[facility] Hospitalist Vital Signs Vital Signs Date Time Temp Pulse Resp B/P (MAP) Pulse Ox O2 Delivery O2 Flow Rate FiO2 10/16/20 16:02 18 10/16/20 15:50 97.7 90 134/69 (90) 100 Room Air Laboratory Data Labs 24H Laboratory Tests 2 10/16/20 18:07: Home Medications Scheduled Alogliptin Benzoate (Alogliptin) 25 Mg Tablet, 25 MG PO DAILY Aspirin (Aspirin EC) 81 Mg Tablet.dr, 81 MG PO DAILY Atorvastatin Calcium (Atorvastatin Calcium) 40 Mg Tablet, 40 MG PO QPM Buspirone HCl (Buspirone HCl) 15 Mg Tablet, 15 MG PO BID Duloxetine Hcl (Duloxetine HCl) 60 Mg Capsule.dr, 60 MG PO BID Furosemide (Furosemide) 40 Mg Tablet, 40 MG PO DAILY Gabapentin (Gabapentin) 400 Mg Capsule, 400 MG PO TID Hydroxyzine HCl (Hydroxyzine HCl) 50 Mg Tablet, 50 MG PO QHS Insulin Glargine,Hum.rec.anlog (Basaglar Kwikpen U-100) 100 Unit/1 Ml Insuln.pen, 55 UNIT SC QHS Levothyroxine Sodium (Synthroid) 200 Mcg Tablet, 200 MCG PO QAM Losartan Potassium (Losartan Potassium) 50 Mg Tablet, 50 MG PO DAILY Metformin HCl (Metformin HCl ER) 500 Mg Tab.er.24h, 500 MG PO QPM Omeprazole (Omeprazole) 40 Mg Capsule.dr, 40 MG PO BID Potassium Chloride (Potassium Chloride) 10 Meq Tablet.er, 10 MEQ PO QPM Trazodone HCl (Trazodone HCl) 150 Mg Tablet, 150 MG PO QHS Valproic Acid (Valproic Acid) 250 Mg Capsule, 500 MG PO BID TAKES 0800/1700 Scheduled PRN Acetaminophen (Acetaminophen ER) 650 Mg Tablet.er, 650 MG PO Q8H PRN for PAIN Lidocaine/Prilocaine (Lidocaine-Prilocaine Cream) 2.5%/2.5% Cream..g., 1 APLCT TOP DAILY PRN for PAIN APPLY TO SHOULDER, KNEE, HAND Oxycodone/Acetaminophen (Oxycodone-Acetaminophen 5-325) 1 Each Tablet, 1 TAB PO Q8HP PRN for MODERATE/SEVERE PAIN (PS 5-10) Propylene Glycol/Peg 400 (Systane 0.3-0.4% Eye Drops) 15 Ml Drops, 1 DROP OU QID PRN for DRY EYES Allergies Coded Allergies: shellfish derived (Verified Allergy, Severe, ANAPHYLAXIS, 07/19/20) atorvastatin (Verified Adverse Reaction, Intermediate, ELEVATED LIVER ENZYMES, 07/19/20) quetiapine (Verified Adverse Reaction, Intermediate, SEIZURES, 07/19/20) Hydrolyzed Brogan Oil (Verified Adverse Reaction, Mild, DIARRHEA, 07/19/20) ibuprofen (Verified Adverse Reaction, Mild, UPSET STOMACH, 07/19/20) metformin (Verified Adverse Reaction, Unknown, DIARRHEA, 07/19/20) A-FIB/CHADSVASC A-FIB History Current/History of A-Fib/PAF?: No ARCELIA JUNG MD Oct 16, 2020 19:02
[2020-10-16] MEDS ORDERED: GLUCOSE 4GM CHEW TABLET PO PRN (19:15)
[2020-10-16] MEDS ORDERED: GLUCAGON INJ 1MG VIAL SC PRN (19:15)
[2020-10-16] MEDS ORDERED: DEXTROSE 50% 50 ML SYRINGE IV PRN (19:15)
[2020-10-16] MEDS ORDERED: MAALOX 30 ML SUSP *UDC PO PRN (19:15)
[2020-10-16] MEDS ORDERED: MOM 30ML SUSPENSION UDC PO PRN (19:15)
[2020-10-16] MEDS: ATORVASTATIN 20 MG TAB PO SCH (19:31)
[2020-10-16] MEDS: POTASSIUM CHLORIDE 10 MEQ SR TABLET PO SCH (19:32)
--- OUTSIDE RECORDS SUMMARY | 2020-10-16 20:12 | CCD ---
Author Author [facility] Organization [facility] Address Unknown Phone Unavailable Care Team Providers Care Pamphlet Distributor Name Role Phone Jori HERNANDEZ DPM Unavailable [...] is protected by Article 27-F of the [facility] Public Health law. If you continue you may have access to information: Regarding HIV / AIDS; Provided by facilities licensed or operated by the [facility] Office of Mental Health; or Provided by the [facility] Office for People With Developmental Disabilities. If such information is present, then the following [facility] mandated warning applies: This information has been [...] allergy Ibuprofen Ibuprofen upset stomach Active eCW1 ([facility]) Drug allergy Atorvastatin Calcium atorvastatin elevates liver enzymes Active eCW1 ([facility]) Drug allergy Quetiapine Fumarate quetiapine seizures Active eCW 1 ([facility]) shellfish shellfish shellfish Anaphylaxis Active eCW1 ([facility]) hydrolyzed corn oil hydrolyzed corn oil hydrolyzed corn oil Diarrhea Active eCW1 ([facility]) shellfish shellfish shellfish Anaphylaxis Active eCW1 ([facility]) hydrolyzed corn oil hydrolyzed corn oil hydrolyzed corn oil Diarrhea Active eCW1 ([facility]) shellfish shellfish shellfish Anaphylaxis Active eCW1 ([facility]) hydrolyzed corn oil hydrolyzed corn oil hydrolyzed corn oil Diarrhea Active eCW1 ([facility]) Family History Family Member Name Family Member Gender Family Member Status Date o f Status Description Data Source(s) Unknown Male Problem MEDENT ([facility] () Unknown Female Problem MEDENT ([facility]) Encounters Encounter Providers Location Date Indications Data Source(s ) Outpatient [address] [facility] [place] [address] 10/01/2020 12:00:00 AM EST eCW1 ([facility]) Unknown [address] [facility] [place] [address] 09/26/2020 12:00:00 AM EST eCW1 ([facility]) Unknown [address] [facility] [place] [address] 09/23/2020 12:00:00 AM EST eCW1 ([facility]) Unknown [address] [facility] [place] [address] 09/23/2020 12:00:00 AM EST eCW1 ([facility]) Unknown [address] [facility] [place] [address] 09/16/2020 12:00:00 AM EST eCW1 ([facility]) Unknown [address] [facility] [place] [address] 09/10/2020 12:00:00 AM EST eCW1 ([facility]) Outpatient [address] [facility] [address] 09/09/2020 12:00:00 AM EST eCW1 ([facility]) [place] [address] [facility] [address] 09/09/2020 12:00:00 AM EST eCW1 ([facility]) [place] [address] [facility] [address] 09/05/2020 12:00:00 AM EST eCW1 ([facility]) Unknown [address] [facility] [address] 09/04/2020 12:00:00 AM EST eCW1 ([facility]) Unknown [address] [facility] [address] 08/22/2020 12:00:00 AM EST eCW1 ([facility]) Unknown [address] [facility] [address] 08/13/2020 12:00:00 AM EST eCW1 ([facility]) Unknown [address] [facility] [address] 08/08/2020 12:00:00 AM EST eCW1 ([facility]) [place]patient [address] [facility] [address] 07/30/2020 12:00:00 AM EST eCW1 ([facility]) Unknown [address] [facility] [address] 07/23/2020 12:00:00 AM EST eCW1 ([facility]) Outpatient [address] [facility] [address] 07/18/2020 12:00:00 AM EDT eCW1 ([facility]) Unknown [address] [facility] [address] 07/18/2020 12:00:00 AM EDT eCW1 ([facility]) Unknown [address] [facility] [place] [address] 07/17/2020 12:00:00 AM EDT eCW1 ([facility]) Outpatient [address] [facility], [place] [address] 07/10/2020 12:00:00 AM EDT [facility]CW1 [facility] Unknown [address] [facility], [place] [address] 07/05/2020 12:00:00 AM EDT eCW1 ([facility]) Unknown [address] [facility], [place] [address] 07/03/2020 12:00:00 AM EDT eCW1 [facility] Outpatient Attender: MADIHA HERNANDEZ [facility] Office 04/20 10:45:00 AM EDT MEDENT ([facility] [place] [address] [facility] Y [address] 04/16/2020 12:00:00 AM EDT eCW1 ([facility]) Unknown [address] [facility] [address] 04/11/2020 12:00:00 AM EDT eCW1 ([facility]) Unknown [address] [facility], [place] [address] 04/03/2020 12:00:00 AM EDT eCW1 ([facility]) Outpatient [address] [facility], [place] [address] 04/02/2020 12:00:00 AM EDT eCW1 ([facility]) Unknown [address] [facility] [address] 04/01/2020 12:00:00 AM EDT eCW1 ([facility]) Outpatient [address] [facility] Y [address] 03/28/2020 12:00:00 AM EDT eCW1 ([facility]) Unknown [address] [facility], [place] [address] 03/20/2020 12:00:00 AM EDT eCW1 ([facility]) [facility] [address] [place] [address] 03/05/2020 12:00:00 AM EDT eCW1 ([facility]) Unknown [address] [facility] [address] 03/04/2020 12:00:00 AM EDT eCW1 ([facility]) Unknown [address] [facility] [address] 03/04/2020 12:00:00 AM EDT eCW1 ([facility]) Unknown [address] [facility] [address] 03/01/2020 12:00:00 AM EDT eCW1 [facility]) [facility]: [facility] 02/27/2020 07:33:08 PM E DT [facility] Unknown [address] [facility] [address] 02/22/2020 12:00:00 AM EDT eCW1 ([facility]) Unknown [address] [facility] [address] 02/16/2020 12:00:00 AM EDT [facility]CW1 [facility] Outpatient [address] [facility] [place] [address] 02/15/2020 12:00:00 AM EDT eCW1 ([facility]) [facility] Lenny [address] [facility] [place] [address] 02/14/2020 12:00:00 AM EDT eCW1 ([facility]) [facility] Lenny [address] [facility] [address] 02/13/2020 12:00:00 AM EDT eCW1 ([facility]) [facility] Jamaal [address] [facility] [place] [address] 02/08/2020 12:00:00 AM EDT eCW1 [facility] Jamaal [address] [facility] [place] [address] 02/08/2020 12:00:00 AM EDT eCW1 ([facility]) [facility] [address] [facility] [address] 02/06/2020 12:00:00 AM EDT eCW1 ([facility]) [facility] [address] [facility] [address] 02/06/2020 12:00:00 AM EDT eCW1 ([facility]) [facility] [address] [facility] [address] 02/02/2020 12:00:00 AM EDT eCW1 ([facility]) [facility] [address] [facility] [address] 01/31/2020 12:00:00 AM EDT eCW1 ([facility]) [facility] [address] [facility] [address] 01/29/2020 12:00:00 AM EDT eCW1 ([facility]) [facility] [address] [place] [address], [place] [address] 01/25/2020 12:00:00 AM EDT eCW1 ([facility]) [facility] [address] [facility] [address] 01/24/2020 12:00:00 AM EDT eCW1 ([facility]) [facility] [address] [facility] [address] 01/18/2020 12:00:00 AM EDT eCW1 ([facility]) [facility] [address] [place] [address], [place] [address] 01/18/2020 12:00:00 AM EDT eCW1 ([facility]) [facility] [address] [place] [address], [place] [address] 01/18/2020 12:00:00 AM EDT eCW1 ([facility]) [facility] [address] [place] [address], [place] [address] 01/17/2020 12:00:00 AM EDT eCW1 ([facility]) [facility] [address] [facility] [place] [address] 01/16/2020 12:00:00 AM EDT eCW1 ([facility]) [facility] [address] [facility] Y [address] 01/15/2020 12:00:00 AM EDT eCW1 ([facility]) [facility] [address] [place] [address] 12/20/2019 12:00:00 AM EDT eCW1 ([facility]) [facility] [address] [place] [address] Y [address] 12/12/2019 12:00:00 AM EDT eCW1 ([facility]) [facility] [address] [place] [address] 11/30/2019 12:00:00 AM EDT eCW1 ([facility]) [facility] [address] [place] [address] N [place] [address] 11/21/2019 12:00:00 AM EST eCW1 ([facility]) [facility] [address] [place] [address] N Y [address] 11/21/2019 12:00:00 AM EST eCW1 ([facility]) [facility] [address] [place] [address] 11/21/2019 12:00:00 AM EST eCW1 ([facility]) [facility] [address] [place] [address] N Y [address] 11/20/2019 12:00:00 AM EST eCW1 ([facility]) [facility] [address] [place] [address] Y [address] 11/16/2019 12:00:00 AM EST eCW1 ([facility]) [facility] [address] [place] [address] Y [address] 11/15/2019 12:00:00 AM EST eCW1 ([facility]) [facility] [address] [place] [address], [place] [address] 11/09/2019 12:00:00 AM EST eCW1 ([facility]) [facility] [address] [place] [address], [place] [address] 10/24/2019 12:00:00 AM EST eCW1 ([facility]) [facility] [address] [place] [address], [place] [address] 10/23/2019 12:00:00 AM EST eCW1 ([facility]) [facility] [address] [place] [address], [place] [address] 10/23/2019 12:00:00 AM EST eCW1 ([facility]) [facility] [address] [place] [address], [place] [address] 10/19/2019 12:00:00 AM EST eCW1 ([facility]) [address] [address] 10/18/2019 12:00:00 AM EST eCW1 ([facility]) [address] [address] 10/16/2019 12:00:00 AM EST eCW1 ([facility]) [facility] [address] [place] [address], [place] [address] 10/16/2019 12:00:00 AM EST eCW1 ([facility]) [facility] [address] [place] [address], [place] [address] 10/12/2019 12:00:00 AM EST eCW1 ([facility]) [address] [address] 10/12/2019 12:00:00 AM EST eCW1 ([facility]) [address] [address] 10/02/2019 12:00:00 AM EST eCW1 ([facility]) [address] [address] 09/28/2019 12:00:00 AM EST eCW1 ([facility]) [address] [address] 09/27/2019 12:00:00 AM EST eCW1 ([facility]) Outpatient 09/22/2019 05:38:00 AM EST [facility] [address], [place] [address] 09/21/2019 12:00:00 AM EST eCW1 ([facility]) [address] [address] 09/07/2019 12:00:00 AM EST eCW1 ([facility]) [address] [address] 08/31/2019 12:00:00 AM EST eCW1 ([facility]) Medications Medication Brand Name Start Date Product Form Dose Route Admi nistrative Instructions Pharmacy Instructions Status Indications Reaction Description Data Source(s) Fluconazole 150 MG Oral Tablet Fluconazole 150 MG 09/09/2020 12:00: 00 AM EST 1.0 {tablet} active Fluconazole 150 MG eCW1 ([facility]) Fluconazole 150 MG Oral Tablet Fluconazole 150 MG 09/09/2020 12:00: 00 AM EST 1.0 {tablet} active Fluconazole 150 MG eCW1 ([facility]) Fluconazole 150 MG Oral Tablet Fluconazole 150 MG 09/09/2020 12:00: 00 AM EST 1.0 {tablet} active Fluconazole 150 MG eCW1 ([facility]) Fluconazole 150 MG Oral Tablet Fluconazole 150 MG 09/09/2020 12:00: 00 AM EST 1.0 {tablet} active Fluconazole 150 MG eCW1 ([facility]) Fluconazole 150 MG Oral Tablet Fluconazole 150 MG 09/09/2020 12:00: 00 AM EST 1.0 {tablet} active Fluconazole 150 MG eCW1 ([facility]) Fluconazole 150 MG Oral Tablet Fluconazole 150 MG 09/09/2020 12:00: 00 AM EST 1.0 {tablet} active Fluconazole 150 MG eCW1 ([facility]) Fluconazole 150 MG Oral Tablet Fluconazole 150 MG 09/09/2020 12:00: 00 AM EST 1.0 {tablet} active Fluconazole 150 MG eCW1 ([facility]) Fluconazole 150 MG Oral Tablet Fluconazole 150 MG 09/09/2020 12:00: 00 AM EST 1.0 {tablet} active Fluconazole 150 MG eCW1 ([facility]) celecoxib 100 MG Oral Capsule [Celebrex] Celebrex 100 MG Siobhan ebrex 100 MG 07/18/2020 12:00:00 AM EDT 1.0 {capsule_with_food} active Celebrex 100 MG eCW1 ([facility]) celecoxib 100 MG Oral Capsule [Celebrex] Celebrex 100 MG Siobhan ebrex 100 MG 07/18/2020 12:00:00 AM EDT 1.0 {capsule_with_food} active Celebrex 100 MG eCW1 ([facility]) celecoxib 100 MG Oral Capsule [Celebrex] Celebrex 100 MG Siobhan ebrex 100 MG 07/18/2020 12:00:00 AM EDT 1.0 {capsule_with_food} active Celebrex 100 MG eCW1 ([facility]) celecoxib 100 MG Oral Capsule [Celebrex] Celebrex 100 MG Siobhan ebrex 100 MG 07/18/2020 12:00:00 AM EDT 1.0 {capsule_with_food} active Celebrex 100 MG eCW1 ([facility]) celecoxib 100 MG Oral Capsule [Celebrex] Celebrex 100 MG Siobhan ebrex 100 MG 07/18/2020 12:00:00 AM EDT 1.0 {capsule_with_food} active Celebrex 100 MG eCW1 ([facility]) celecoxib 100 MG Oral Capsule [Celebrex] Celebrex 100 MG Siobhan ebrex 100 MG 07/18/2020 12:00:00 AM EDT 1.0 {capsule_with_food} active Celebrex 100 MG eCW1 ([facility]) celecoxib 100 MG Oral Capsule [Celebrex] Celebrex 100 MG Siobhan ebrex 100 MG 07/18/2020 12:00:00 AM EDT 1.0 {capsule_with_food} active Celebrex 100 MG eCW1 ([facility]) celecoxib 100 MG Oral Capsule [Celebrex] Celebrex 100 MG Siobhan ebrex 100 MG 07/18/2020 12:00:00 AM EDT 1.0 {capsule_with_food} active Celebrex 100 MG eCW1 ([facility]) celecoxib 100 MG Oral Capsule [Celebrex] Celebrex 100 MG Siobhan ebrex 100 MG 07/18/2020 12:00:00 AM EDT 1.0 {capsule_with_food} active Celebrex 100 MG eCW1 ([facility]) celecoxib 100 MG Oral Capsule [Celebrex] Celebrex 100 MG Siobhan ebrex 100 MG 07/18/2020 12:00:00 AM EDT 1.0 {capsule_with_food} active Celebrex 100 MG eCW1 ([facility]) celecoxib 100 MG Oral Capsule [Celebrex] Celebrex 100 MG Siobhan ebrex 100 MG 07/18/2020 12:00:00 AM EDT 1.0 {capsule_with_food} active Celebrex 100 MG eCW1 ([facility]) celecoxib 100 MG Oral Capsule [Celebrex] Celebrex 100 MG Siobhan ebrex 100 MG 07/18/2020 12:00:00 AM EDT 1.0 {capsule_with_food} active Celebrex 100 MG eCW1 ([facility]) celecoxib 100 MG Oral Capsule [Celebrex] Celebrex 100 MG Siobhan ebrex 100 MG 07/18/2020 12:00:00 AM EDT 1.0 {capsule_with_food} active Celebrex 100 MG eCW1 ([facility]) celecoxib 100 MG Oral Capsule [Celebrex] Celebrex 100 MG Siobhan ebrex 100 MG 07/18/2020 12:00:00 AM EDT 1.0 {capsule_with_food} active Celebrex 100 MG eCW1 ([facility]) celecoxib 100 MG Oral Capsule [Celebrex] Celebrex 100 MG Siobhan ebrex 100 MG 07/18/2020 12:00:00 AM EDT 1.0 {capsule_with_food} active Celebrex 100 MG eCW1 ([facility]) May Have - UNK 02/26/2020 12:00:00 AM EDT active May Have - eCW1 ([facility]) May Have - UNK 02/26/2020 12:00:00 AM EDT active May Have - eCW1 ([facility]) May Have - UNK 02/26/2020 12:00:00 AM EDT active May Have - eCW1 ([facility]) May Have - UNK 02/26/2020 12:00:00 AM EDT active May Have - eCW1 ([facility]) May Have - UNK 02/26/2020 12:00:00 AM EDT active May Have - eCW1 ([facility]) May Have - UNK 02/26/2020 12:00:00 AM EDT active May Have - eCW1 ([facility]) May Have - UNK 02/26/2020 12:00:00 AM EDT active May Have - eCW1 ([facility]) May Have - UNK 02/26/2020 12:00:00 AM EDT active May Have - eCW1 ([facility]) May Have - UNK 02/26/2020 12:00:00 AM EDT active May Have - eCW1 ([facility]) May Have - UNK 02/26/2020 12:00:00 AM EDT active May Have - eCW1 ([facility]) May Have - UNK 02/26/2020 12:00:00 AM EDT active May Have - eCW1 ([facility]) May Have - UNK 02/26/2020 12:00:00 AM EDT active May Have - eCW1 ([facility]) May Have - UNK 02/26/2020 12:00:00 AM EDT active May Have - eCW1 ([facility]) May Have - UNK 02/26/2020 12:00:00 AM EDT active May Have - eCW1 ([facility]) May Have - UNK 02/26/2020 12:00:00 AM EDT active May Have - eCW1 ([facility]) May Have - UNK 02/26/2020 12:00:00 AM EDT active May Have - eCW1 ([facility]) May Have - UNK 02/26/2020 12:00:00 AM EDT active May Have - eCW1 ([facility]) May Have - UNK 02/26/2020 12:00:00 AM EDT active May Have - eCW1 ([facility]) May Have - UNK 02/26/2020 12:00:00 AM EDT active May Have - eCW1 ([facility]) May Have - UNK 02/26/2020 12:00:00 AM EDT active May Have - eCW1 ([facility]) May Have - UNK 02/26/2020 12:00:00 AM EDT active May Have - eCW1 ([facility]) May Have - UNK 02/26/2020 12:00:00 AM EDT active May Have - eCW1 ([facility]) May Have - UNK 02/26/2020 12:00:00 AM EDT active May Have - eCW1 ([facility]) May Have - UNK 02/26/2020 12:00:00 AM EDT active May Have - eCW1 ([facility]) May Have - UNK 02/26/2020 12:00:00 AM EDT active May Have - eCW1 ([facility]) May Have - UNK 02/26/2020 12:00:00 AM EDT active May Have - eCW1 ([facility]) May Have - UNK 02/26/2020 12:00:00 AM EDT active May Have - eCW1 ([facility]) May Have - UNK 02/26/2020 12:00:00 AM EDT active May Have - eCW1 ([facility]) May Have - UNK 02/26/2020 12:00:00 AM EDT active May Have - eCW1 ([facility]) May Have - UNK 02/26/2020 12:00:00 AM EDT active May Have - eCW1 ([facility]) May Have - UNK 02/26/2020 12:00:00 AM EDT active May Have - eCW1 ([facility]) May Have - UNK 02/26/2020 12:00:00 AM EDT active May Have - eCW1 ([facility]) Amoxicillin 875 MG / Clavulanate 125 MG Oral Tablet Amoxicillin-Pot Clavulanate 875-125 MG Amoxicillin-Pot Clavulanate 875-125 MG 02/15/2020 12:00:00 AM ED T 1.0 {tablet} active Amoxicillin-Pot Cla vulanate 875-125 MG eCW1 ([facility]) Prednisone 20 MG Oral Tablet PredniSONE 20 MG PredniSONE 20 MG 02/15/2020 12:00:00 AM EDT 1.0 {tablet} active Pr edniSONE 20 MG eCW1 ([facility]) Amoxicillin 875 MG / Clavulanate 125 MG Oral Tablet Amoxicillin-Pot Clavulanate 875-125 MG Amoxicillin-Pot Clavulanate 875-125 MG 02/15/2020 12:00:00 AM ED T 1.0 {tablet} active Amoxicillin-Pot Cla vulanate 875-125 MG eCW1 ([facility]) Amoxicillin 875 MG / Clavulanate 125 MG Oral Tablet Amoxicillin-Pot Clavulanate 875-125 MG Amoxicillin-Pot Clavulanate 875-125 MG 02/15/2020 12:00:00 AM ED T 1.0 {tablet} active Amoxicillin-Pot Cla vulanate 875-125 MG eCW1 ([facility]) Prednisone 20 MG Oral Tablet PredniSONE 20 MG PredniSONE 20 MG 02/15/2020 12:00:00 AM EDT 1.0 {tablet} active Pr edniSONE 20 MG eCW1 ([facility]) Amoxicillin 875 MG / Clavulanate 125 MG Oral Tablet Amoxicillin-Pot Clavulanate 875-125 MG Amoxicillin-Pot Clavulanate 875-125 MG 02/15/2020 12:00:00 AM ED T 1.0 {tablet} active Amoxicillin-Pot Cla vulanate 875-125 MG eCW1 ([facility]) Prednisone 20 MG Oral Tablet PredniSONE 20 MG PredniSONE 20 MG 02/15/2020 12:00:00 AM EDT 1.0 {tablet} active Pr edniSONE 20 MG eCW1 ([facility]) Prednisone 20 MG Oral Tablet PredniSONE 20 MG PredniSONE 20 MG 02/15/2020 12:00:00 AM EDT 1.0 {tablet} active Pr edniSONE 20 MG eCW1 ([facility]) Amoxicillin 875 MG / Clavulanate 125 MG Oral Tablet Amoxicillin-Pot Clavulanate 875-125 MG Amoxicillin-Pot Clavulanate 875-125 MG 02/15/2020 12:00:00 AM ED T 1.0 {tablet} active Amoxicillin-Pot Cla vulanate 875-125 MG eCW1 ([facility]) Prednisone 20 MG Oral Tablet PredniSONE 20 MG PredniSONE 20 MG 02/15/2020 12:00:00 AM EDT 1.0 {tablet} active Pr edniSONE 20 MG eCW1 ([facility]) Oxybutynin chloride 5 MG Oral Tablet Oxybutynin Chlori de 5 MG Oxybutynin Chloride 5 MG 02/14/2020 12:00:00 AM EDT 1.0 {tablet} active Oxybutynin Chloride 5 MG eCW1 ([facility]) Oxybutynin chloride 5 MG Oral Tablet Oxybutynin Chlori de 5 MG Oxybutynin Chloride 5 MG 02/14/2020 12:00:00 AM EDT 1.0 {tablet} active Oxybutynin Chloride 5 MG eCW1 ([facility]) Oxybutynin chloride 5 MG Oral Tablet Oxybutynin Chlori de 5 MG Oxybutynin Chloride 5 MG 02/14/2020 12:00:00 AM EDT 1.0 {tablet} active Oxybutynin Chloride 5 MG eCW1 ([facility]) Oxybutynin chloride 5 MG Oral Tablet Oxybutynin Chlori de 5 MG Oxybutynin Chloride 5 MG 02/14/2020 12:00:00 AM EDT 1.0 {tablet} active Oxybutynin Chloride 5 MG eCW1 ([facility]) Oxybutynin chloride 5 MG Oral Tablet Oxybutynin Chlori de 5 MG Oxybutynin Chloride 5 MG 02/14/2020 12:00:00 AM EDT 1.0 {tablet} active Oxybutynin Chloride 5 MG eCW1 ([facility]) Oxybutynin chloride 5 MG Oral Tablet Oxybutynin Chlori de 5 MG Oxybutynin Chloride 5 MG 02/14/2020 12:00:00 AM EDT 1.0 {tablet} active Oxybutynin Chloride 5 MG eCW1 ([facility]) Oxybutynin chloride 5 MG Oral Tablet Oxybutynin Chlori de 5 MG Oxybutynin Chloride 5 MG 02/14/2020 12:00:00 AM EDT 1.0 {tablet} active Oxybutynin Chloride 5 MG eCW1 ([facility]) Oxybutynin chloride 5 MG Oral Tablet Oxybutynin Chlori de 5 MG Oxybutynin Chloride 5 MG 02/14/2020 12:00:00 AM EDT 1.0 {tablet} active Oxybutynin Chloride 5 MG eCW1 ([facility]) Oxybutynin chloride 5 MG Oral Tablet Oxybutynin Chlori de 5 MG Oxybutynin Chloride 5 MG 02/14/2020 12:00:00 AM EDT 1.0 {tablet} active Oxybutynin Chloride 5 MG [facility] [facility] Oxybutynin chloride 5 MG Oral Tablet Oxybutynin Chlori de 5 MG Oxybutynin Chloride 5 MG 02/14/2020 12:00:00 AM EDT 1.0 {tablet} active Oxybutynin Chloride 5 MG eCW1 ([facility]) Oxybutynin chloride 5 MG Oral Tablet Oxybutynin Chlori de 5 MG Oxybutynin Chloride 5 MG 02/14/2020 12:00:00 AM EDT 1.0 {tablet} active Oxybutynin Chloride 5 MG eCW1 ([facility]) Oxybutynin chloride 5 MG Oral Tablet Oxybutynin Chlori de 5 MG Oxybutynin Chloride 5 MG 02/14/2020 12:00:00 AM EDT 1.0 {tablet} active Oxybutynin Chloride 5 MG eCW1 ([facility]) Oxybutynin chloride 5 MG Oral Tablet Oxybutynin Chlori de 5 MG Oxybutynin Chloride 5 MG 02/14/2020 12:00:00 AM EDT 1.0 {tablet} active Oxybutynin Chloride 5 MG eCW1 ([facility]) Oxybutynin chloride 5 MG Oral Tablet Oxybutynin Chlori de 5 MG Oxybutynin Chloride 5 MG 02/14/2020 12:00:00 AM EDT 1.0 {tablet} active Oxybutynin Chloride 5 MG eCW1 ([facility]) Oxybutynin chloride 5 MG Oral Tablet Oxybutynin Chlori de 5 MG Oxybutynin Chloride 5 MG 02/14/2020 12:00:00 AM EDT 1.0 {tablet} active Oxybutynin Chloride 5 MG eCW1 ([facility]) Oxybutynin chloride 5 MG Oral Tablet Oxybutynin Chlori de 5 MG Oxybutynin Chloride 5 MG 02/14/2020 12:00:00 AM EDT 1.0 {tablet} active Oxybutynin Chloride 5 MG eCW1 ([facility]) Oxybutynin chloride 5 MG Oral Tablet Oxybutynin Chlori de 5 MG Oxybutynin Chloride 5 MG 02/14/2020 12:00:00 AM EDT 1.0 {tablet} active Oxybutynin Chloride 5 MG eCW1 ([facility]) Oxybutynin chloride 5 MG Oral Tablet Oxybutynin Chlori de 5 MG Oxybutynin Chloride 5 MG 02/14/2020 12:00:00 AM EDT 1.0 {tablet} active Oxybutynin Chloride 5 MG eCW1 ([facility]) Oxybutynin chloride 5 MG Oral Tablet Oxybutynin Chlori de 5 MG Oxybutynin Chloride 5 MG 02/14/2020 12:00:00 AM EDT 1.0 {tablet} active Oxybutynin Chloride 5 MG eCW1 ([facility]) Oxybutynin chloride 5 MG Oral Tablet Oxybutynin Chlori de 5 MG Oxybutynin Chloride 5 MG 02/14/2020 12:00:00 AM EDT 1.0 {tablet} active Oxybutynin Chloride 5 MG eCW1 ([facility]) Oxybutynin chloride 5 MG Oral Tablet Oxybutynin Chlori de 5 MG Oxybutynin Chloride 5 MG 02/14/2020 12:00:00 AM EDT 1.0 {tablet} active Oxybutynin Chloride 5 MG eCW1 ([facility]) Oxybutynin chloride 5 MG Oral Tablet Oxybutynin Chlori de 5 MG Oxybutynin Chloride 5 MG 02/14/2020 12:00:00 AM EDT 1.0 {tablet} active Oxybutynin Chloride 5 MG eCW1 ([facility]) Oxybutynin chloride 5 MG Oral Tablet Oxybutynin Chlori de 5 MG Oxybutynin Chloride 5 MG 02/14/2020 12:00:00 AM EDT 1.0 {tablet} active Oxybutynin Chloride 5 MG eCW1 ([facility]) Oxybutynin chloride 5 MG Oral Tablet Oxybutynin Chlori de 5 MG Oxybutynin Chloride 5 MG 02/14/2020 12:00:00 AM EDT 1.0 {tablet} active Oxybutynin Chloride 5 MG eCW1 ([facility]) Oxybutynin chloride 5 MG Oral Tablet Oxybutynin Chlori de 5 MG Oxybutynin Chloride 5 MG 02/14/2020 12:00:00 AM EDT 1.0 {tablet} active Oxybutynin Chloride 5 MG eCW1 ([facility]) Oxybutynin chloride 5 MG Oral Tablet Oxybutynin Chlori de 5 MG Oxybutynin Chloride 5 MG 02/14/2020 12:00:00 AM EDT 1.0 {tablet} active Oxybutynin Chloride 5 MG eCW1 ([facility]) Oxybutynin chloride 5 MG Oral Tablet Oxybutynin Chlori de 5 MG Oxybutynin Chloride 5 MG 02/14/2020 12:00:00 AM EDT 1.0 {tablet} active Oxybutynin Chloride 5 MG eCW1 ([facility]) Oxybutynin chloride 5 MG Oral Tablet Oxybutynin Chlori de 5 MG Oxybutynin Chloride 5 MG 02/14/2020 12:00:00 AM EDT 1.0 {tablet} active Oxybutynin Chloride 5 MG eCW1 ([facility]) Oxybutynin chloride 5 MG Oral Tablet Oxybutynin Chlori de 5 MG Oxybutynin Chloride 5 MG 02/14/2020 12:00:00 AM EDT 1.0 {tablet} active Oxybutynin Chloride 5 MG eCW1 ([facility]) Oxybutynin chloride 5 MG Oral Tablet Oxybutynin Chlori de 5 MG Oxybutynin Chloride 5 MG 02/14/2020 12:00:00 AM EDT 1.0 {tablet} active Oxybutynin Chloride 5 MG eCW1 ([facility]) Oxybutynin chloride 5 MG Oral Tablet Oxybutynin Chlori de 5 MG Oxybutynin Chloride 5 MG 02/14/2020 12:00:00 AM EDT 1.0 {tablet} active Oxybutynin Chloride 5 MG eCW1 ([facility]) Oxybutynin chloride 5 MG Oral Tablet Oxybutynin Chlori de 5 MG Oxybutynin Chloride 5 MG 02/14/2020 12:00:00 AM EDT 1.0 {tablet} active Oxybutynin Chloride 5 MG eCW1 ([facility]) Chux UNK 02/08/2020 12:00:00 AM EDT active Chux eCW1 ([facility]) Chux UNK 02/08/2020 12:00:00 AM EDT active Chux eCW1 ([facility]) Chux UNK 02/08/2020 12:00:00 AM EDT active Chux eCW1 ([facility]) Chux UNK 02/08/2020 12:00:00 AM EDT activ e 1pad to bed/couch/chair eCW1 ([facility]) Chux UNK 02/08/2020 12:00:00 AM EDT active Chux eCW1 ([facility]) Chux UNK 02/08/2020 12:00:00 AM EDT active Chux eCW1 ([facility]) Chux UNK 02/08/2020 12:00:00 AM EDT active Chux eCW1 ([facility]) Chux UNK 02/08/2020 12:00:00 AM EDT active Chux eCW1 ([facility]) Chux UNK 02/08/2020 12:00:00 AM EDT active Chux eCW1 ([facility]) Chux UNK 02/08/2020 12:00:00 AM EDT active Chux eCW1 ([facility]) Chux UNK 02/08/2020 12:00:00 AM EDT active Chux eCW1 ([facility]) Chux UNK 02/08/2020 12:00:00 AM EDT active Chux eCW1 ([facility]) Chux UNK 02/08/2020 12:00:00 AM EDT active Chux eCW1 ([facility]) Chux UNK 02/08/2020 12:00:00 AM EDT active Chux eCW1 ([facility]) Chux UNK 02/08/2020 12:00:00 AM EDT active Chux eCW1 ([facility]) Chux UNK 02/08/2020 12:00:00 AM EDT active Chux eCW1 ([facility]) Chux UNK 02/08/2020 12:00:00 AM EDT active Chux eCW1 ([facility]) Chux UNK 02/08/2020 12:00:00 AM EDT active Chux eCW1 ([facility]) Chux UNK 02/08/2020 12:00:00 AM EDT active Chux eCW1 ([facility]) Chux UNK 02/08/2020 12:00:00 AM EDT active Chux eCW1 ([facility]) Chux UNK 02/08/2020 12:00:00 AM EDT active Chux eCW1 ([facility]) Chux UNK 02/08/2020 12:00:00 AM EDT active Chux eCW1 ([facility]) Chux UNK 02/08/2020 12:00:00 AM EDT active Chux eCW1 ([facility]) Chux UNK 02/08/2020 12:00:00 AM EDT active Chux eCW1 ([facility]) Chux UNK 02/08/2020 12:00:00 AM EDT active Chux eCW1 ([facility]) Chux UNK 02/08/2020 12:00:00 AM EDT active Chux eCW1 ([facility]) Chux UNK 02/08/2020 12:00:00 AM EDT active Chux eCW1 ([facility]) Chux UNK 02/08/2020 12:00:00 AM EDT active Chux eCW1 ([facility]) Chux UNK 02/08/2020 12:00:00 AM EDT active Chux eCW1 ([facility]) Chux UNK 02/08/2020 12:00:00 AM EDT active Chux eCW1 ([facility]) Chux UNK 02/08/2020 12:00:00 AM EDT active Chux eCW1 ([facility]) Chux UNK 02/08/2020 12:00:00 AM EDT active Chux eCW1 ([facility]) Chux UNK 02/08/2020 12:00:00 AM EDT active Chux eCW1 ([facility]) Nystatin 351564 UNT/ML Oral Suspension Nystatin 683618 UNIT/ML Nystatin 941892 UNIT/ML 01/29/2020 12:00:00 AM EDT 5.0 {ml} active Nystatin 389768 UNIT/ML eCW1 ([facility]) Nystatin 920393 UNT/ML Oral Suspension Nystatin 069257 UNIT/ML Nystatin 471185 UNIT/ML 01/29/2020 12:00:00 AM EDT 5.0 {ml} suspende d Nystatin 681014 UNIT/ML eCW1 ([facility]) Nystatin 054718 UNT/ML Oral Suspension Nystatin 643805 UNIT/ML Nystatin 339828 UNIT/ML 01/29/2020 12:00:00 AM EDT 5.0 {ml} active Nystatin 978685 UNIT/ML eCW1 ([facility]) Nystatin 837806 UNT/ML Oral Suspension Nystatin 689009 UNIT/ML Nystatin 081951 UNIT/ML 01/29/2020 12:00:00 AM EDT 5.0 {ml} active Nystatin 033394 UNIT/ML eCW1 ([facility]) Nystatin 814478 UNT/ML Oral Suspension Nystatin 506804 UNIT/ML Nystatin 606914 UNIT/ML 01/29/2020 12:00:00 AM EDT 5.0 {ml} suspende d Nystatin 904195 UNIT/ML eCW1 ([facility]) Nystatin 373943 UNT/ML Oral Suspension Nystatin 924270 UNIT/ML Nystatin 496939 UNIT/ML 01/29/2020 12:00:00 AM EDT 5.0 {ml} suspende d Nystatin 710695 UNIT/ML eCW1 ([facility]) Nystatin 358650 UNT/ML Oral Suspension Nystatin 575379 UNIT/ML Nystatin 347150 UNIT/ML 01/29/2020 12:00:00 AM EDT 5.0 {ml} active Nystatin 886225 UNIT/ML eCW1 ([facility]) Nystatin 638734 UNT/ML Oral Suspension Nystatin 078080 UNIT/ML Nystatin 452448 UNIT/ML 01/29/2020 12:00:00 AM EDT 5.0 {ml} suspende d Nystatin 051852 UNIT/ML eCW1 ([facility]) Nystatin 021751 UNT/ML Oral Suspension Nystatin 238411 UNIT/ML Nystatin 678891 UNIT/ML 01/29/2020 12:00:00 AM EDT 5.0 {ml} active Nystatin 351812 UNIT/ML eCW1 ([facility]) Nystatin 701741 UNT/ML Oral Suspension Nystatin 475516 UNIT/ML Nystatin 305276 UNIT/ML 01/29/2020 12:00:00 AM EDT 5.0 {ml} suspende d Nystatin 371451 UNIT/ML eCW1 ([facility]) Nystatin 940727 UNT/ML Oral Suspension Nystatin 698748 UNIT/ML Nystatin 538744 UNIT/ML 01/29/2020 12:00:00 AM EDT 5.0 {ml} suspende d Nystatin 109161 UNIT/ML eCW1 ([facility]) Nystatin 692170 UNT/ML Oral Suspension Nystatin 970941 UNIT/ML Nystatin 349485 UNIT/ML 01/29/2020 12:00:00 AM EDT 5.0 {ml} active Nystatin 955677 UNIT/ML eCW1 ([facility]) Nystatin 870730 UNT/ML Oral Suspension Nystatin 339005 UNIT/ML Nystatin 764659 UNIT/ML 01/29/2020 12:00:00 AM EDT active 5 mL eCW1 ([facility]) Nystatin 776701 UNT/ML Oral Suspension Nystatin 770498 UNIT/ML Nystatin 878000 UNIT/ML 01/29/2020 12:00:00 AM EDT 5.0 {ml} suspende d Nystatin 939716 UNIT/ML eCW1 ([facility]) Nystatin 214864 UNT/ML Oral Suspension Nystatin 024758 UNIT/ML Nystatin 401421 UNIT/ML 01/29/2020 12:00:00 AM EDT 5.0 {ml} active Nystatin 169166 UNIT/ML eCW1 ([facility]) Nystatin 330649 UNT/ML Oral Suspension Nystatin 376757 UNIT/ML Nystatin 779602 UNIT/ML 01/29/2020 12:00:00 AM EDT 5.0 {ml} active Nystatin 147101 UNIT/ML eCW1 ([facility]) Nystatin 373086 UNT/ML Oral Suspension Nystatin 221330 UNIT/ML Nystatin 614452 UNIT/ML 01/29/2020 12:00:00 AM EDT 5.0 {ml} suspende d Nystatin 179265 UNIT/ML eCW1 ([facility]) Nystatin 795631 UNT/ML Oral Suspension Nystatin 847898 UNIT/ML Nystatin 783594 UNIT/ML 01/29/2020 12:00:00 AM EDT 5.0 {ml} active Nystatin 420669 UNIT/ML eCW1 ([facility]) Nystatin 755106 UNT/ML Oral Suspension Nystatin 269358 UNIT/ML Nystatin 644897 UNIT/ML 01/29/2020 12:00:00 AM EDT 5.0 {ml} active Nystatin 080347 UNIT/ML eCW1 ([facility]) Nystatin 574462 UNT/ML Oral Suspension Nystatin 698789 UNIT/ML Nystatin 665120 UNIT/ML 01/29/2020 12:00:00 AM EDT 5.0 {ml} active Nystatin 637708 UNIT/ML eCW1 ([facility]) Nystatin 838435 UNT/ML Oral Suspension Nystatin 173281 UNIT/ML Nystatin 741472 UNIT/ML 01/29/2020 12:00:00 AM EDT 5.0 {ml} suspende d Nystatin 349605 UNIT/ML eCW1 ([facility]) Nystatin 596229 UNT/ML Oral Suspension Nystatin 439925 UNIT/ML Nystatin 390620 UNIT/ML 01/29/2020 12:00:00 AM EDT 5.0 {ml} suspende d Nystatin 029762 UNIT/ML eCW1 ([facility]) Nystatin 973710 UNT/ML Oral Suspension Nystatin 317748 UNIT/ML Nystatin 045693 UNIT/ML 01/29/2020 12:00:00 AM EDT 5.0 {ml} active Nystatin 464958 UNIT/ML eCW1 ([facility]) Nystatin 007130 UNT/ML Oral Suspension Nystatin 339817 UNIT/ML Nystatin 508755 UNIT/ML 01/29/2020 12:00:00 AM EDT 5.0 {ml} suspende d Nystatin 796759 UNIT/ML eCW1 ([facility]) Nystatin 527633 UNT/ML Oral Suspension Nystatin 536706 UNIT/ML Nystatin 772612 UNIT/ML 01/29/2020 12:00:00 AM EDT 5.0 {ml} suspende d Nystatin 883801 UNIT/ML eCW1 ([facility]) Nystatin 172521 UNT/ML Oral Suspension Nystatin 169798 UNIT/ML Nystatin 910290 UNIT/ML 01/29/2020 12:00:00 AM EDT 5.0 {ml} suspende d Nystatin 633619 UNIT/ML eCW1 ([facility]) Nystatin 709362 UNT/ML Oral Suspension Nystatin 307863 UNIT/ML Nystatin 028358 UNIT/ML 01/29/2020 12:00:00 AM EDT 5.0 {ml} active Nystatin 180781 UNIT/ML eCW1 ([facility]) Nystatin 711864 UNT/ML Oral Suspension Nystatin 060067 UNIT/ML Nystatin 090183 UNIT/ML 01/29/2020 12:00:00 AM EDT 5.0 {ml} suspende d Nystatin 453860 UNIT/ML eCW1 ([facility]) Nystatin 890207 UNT/ML Oral Suspension Nystatin 411004 UNIT/ML Nystatin 845863 UNIT/ML 01/29/2020 12:00:00 AM EDT 5.0 {ml} active Nystatin 939565 UNIT/ML eCW1 ([facility]) Nystatin 065804 UNT/ML Oral Suspension Nystatin 650424 UNIT/ML Nystatin 801889 UNIT/ML 01/29/2020 12:00:00 AM EDT 5.0 {ml} suspende d Nystatin 489979 UNIT/ML eCW1 ([facility]) Nystatin 571103 UNT/ML Oral Suspension Nystatin 826403 UNIT/ML Nystatin 071380 UNIT/ML 01/29/2020 12:00:00 AM EDT 5.0 {ml} suspende d Nystatin 368661 UNIT/ML eCW1 ([facility]) Acetaminophen 325 MG / Hydrocodone La trate 5 MG Oral Tablet Hydrocodone- Acetaminophen 5-325 MG Hydrocodone-Acetaminophen 5-325 MG 01/25/2020 12:00:00 AM EDT 1.0 {tablet_as_needed} suspended Hydrocodone-Acetaminophen 5- 325 MG eCW1 ([facility]) Acetaminophen 325 MG / Hydrocodone La trate 5 MG Oral Tablet Hydrocodone- Acetaminophen 5-325 MG Hydrocodone-Acetaminophen 5-325 MG 01/25/2020 12:00:00 AM EDT 1.0 {tablet_as_needed} suspended Hydrocodone-Acetaminophen 5- 325 MG eCW1 ([facility]) Acetaminophen 325 MG / Hydrocodone La trate 5 MG Oral Tablet Hydrocodone- Acetaminophen 5-325 MG Hydrocodone-Acetaminophen 5-325 MG 01/25/2020 12:00:00 AM EDT 1.0 {tablet_as_needed} active Hydrocodone-Acetaminophen 5-325 MG eCW1 ([facility]) Acetaminophen 325 MG / Hydrocodone La trate 5 MG Oral Tablet Hydrocodone- Acetaminophen 5-325 MG Hydrocodone-Acetaminophen 5-325 MG 01/25/2020 12:00:00 AM EDT 1.0 {tablet_as_needed} suspended Hydrocodone-Acetaminophen 5- 325 MG eCW1 ([facility]) Acetaminophen 325 MG / Hydrocodone La trate 5 MG Oral Tablet Hydrocodone- Acetaminophen 5-325 MG Hydrocodone-Acetaminophen 5-325 MG 01/25/2020 12:00:00 AM EDT active 1 tablet as neede d eCW1 ([facility]) Acetaminophen 325 MG / Hydrocodone La trate 5 MG Oral Tablet Hydrocodone- Acetaminophen 5-325 MG Hydrocodone-Acetaminophen 5-325 MG 01/25/2020 12:00:00 AM EDT 1.0 {tablet_as_needed} active Hydrocodone-Acetaminophen 5-325 MG eCW1 ([facility]) Acetaminophen 325 MG / Hydrocodone La trate 5 MG Oral Tablet Hydrocodone- Acetaminophen 5-325 MG Hydrocodone-Acetaminophen 5-325 MG 01/25/2020 12:00:00 AM EDT 1.0 {tablet_as_needed} active Hydrocodone-Acetaminophen 5-325 MG eCW1 ([facility]) Acetaminophen 325 MG / Hydrocodone La trate 5 MG Oral Tablet Hydrocodone- Acetaminophen 5-325 MG Hydrocodone-Acetaminophen 5-325 MG 01/25/2020 12:00:00 AM EDT 1.0 {tablet_as_needed} suspended Hydrocodone-Acetaminophen 5- 325 MG eCW1 ([facility]) Acetaminophen 325 MG / Hydrocodone La trate 5 MG Oral Tablet Hydrocodone- Acetaminophen 5-325 MG Hydrocodone-Acetaminophen 5-325 MG 01/25/2020 12:00:00 AM EDT 1.0 {tablet_as_needed} active Hydrocodone-Acetaminophen 5-325 MG eCW1 ([facility]) Acetaminophen 325 MG / Hydrocodone La trate 5 MG Oral Tablet Hydrocodone- Acetaminophen 5-325 MG Hydrocodone-Acetaminophen 5-325 MG 01/25/2020 12:00:00 AM EDT 1.0 {tablet_as_needed} suspended Hydrocodone-Acetaminophen 5- 325 MG eCW1 ([facility]) Acetaminophen 325 MG / Hydrocodone La trate 5 MG Oral Tablet Hydrocodone- Acetaminophen 5-325 MG Hydrocodone-Acetaminophen 5-325 MG 01/25/2020 12:00:00 AM EDT 1.0 {tablet_as_needed} suspended Hydrocodone-Acetaminophen 5- 325 MG eCW1 ([facility]) Acetaminophen 325 MG / Hydrocodone La trate 5 MG Oral Tablet Hydrocodone- Acetaminophen 5-325 MG Hydrocodone-Acetaminophen 5-325 MG 01/25/2020 12:00:00 AM EDT 1.0 {tablet_as_needed} suspended Hydrocodone-Acetaminophen 5- 325 MG eCW1 ([facility]) Acetaminophen 325 MG / Hydrocodone La trate 5 MG Oral Tablet Hydrocodone- Acetaminophen 5-325 MG Hydrocodone-Acetaminophen 5-325 MG 01/25/2020 12:00:00 AM EDT 1.0 {tablet_as_needed} active Hydrocodone-Acetaminophen 5-325 MG eCW1 ([facility]) Acetaminophen 325 MG / Hydrocodone La trate 5 MG Oral Tablet Hydrocodone- Acetaminophen 5-325 MG Hydrocodone-Acetaminophen 5-325 MG 01/25/2020 12:00:00 AM EDT 1.0 {tablet_as_needed} active Hydrocodone-Acetaminophen 5-325 MG eCW1 ([facility]) Ultra Thin [place] 31G X 5 MM UNK 01/18/2020 12:00:00 AM EDT active Ultra Thin [place] 31G X 5 M M eCW1 ([facility]) Ultra Thin [place] 31G X 5 MM UNK 01/18/2020 12:00:00 AM EDT active Ultra Thin [place] 31G X 5 M M eCW1 ([facility]) Ultra Thin [place] 31G X 5 MM UNK 01/18/2020 12:00:00 AM EDT active Ultra Thin [place] 31G X 5 M M eCW1 ([facility]) Ultra Thin [place] 31G X 5 MM UNK 01/18/2020 12:00:00 AM EDT active Ultra Thin [place] 31G X 5 M M eCW1 ([facility]) Ultra Thin [place] 31G X 5 MM UNK 01/18/2020 12:00:00 AM EDT active Ultra Thin [place] 31G X 5 M M eCW1 ([facility]) Ultra Thin [place] 31G X 5 MM UNK 01/18/2020 12:00:00 AM EDT active Ultra Thin [place] 31G X 5 M M eCW1 ([facility]) Ultra Thin [place] 31G X 5 MM UNK 01/18/2020 12:00:00 AM EDT active Ultra Thin [place] 31G X 5 M M eCW1 ([facility]) Ultra Thin [place] 31G X 5 MM UNK 01/18/2020 12:00:00 AM EDT active Ultra Thin [place] 31G X 5 M M eCW1 ([facility]) Ultra Thin [place] 31G X 5 MM UNK 01/18/2020 12:00:00 AM EDT active Ultra Thin [place] 31G X 5 M M eCW1 ([facility]) Ultra Thin [place] 31G X 5 MM UNK 01/18/2020 12:00:00 AM EDT active Ultra Thin [place] 31G X 5 M M eCW1 ([facility]) Ultra Thin [place] 31G X 5 MM UNK 01/18/2020 12:00:00 AM EDT active as directed eCW1 ([facility]) Ultra Thin [place] 31G X 5 MM UNK 01/18/2020 12:00:00 AM EDT active Ultra Thin [place] 31G X 5 M M eCW1 ([facility]) Ultra Thin [place] 31G X 5 MM UNK 01/18/2020 12:00:00 AM EDT active Ultra Thin [place] 31G X 5 M M eCW1 ([facility]) Ultra Thin [place] 31G X 5 MM UNK 01/18/2020 12:00:00 AM EDT active Ultra Thin [place] 31G X 5 M M eCW1 ([facility]) Ultra Thin [place] 31G X 5 MM UNK 01/18/2020 12:00:00 AM EDT active Ultra Thin [place] 31G X 5 M M eCW1 ([facility]) Ultra Thin [place] 31G X 5 MM UNK 01/18/2020 12:00:00 AM EDT active Ultra Thin [place] 31G X 5 M M eCW1 ([facility]) Ultra Thin [place] 31G X 5 MM UNK 01/18/2020 12:00:00 AM EDT active Ultra Thin [place] 31G X 5 M M eCW1 ([facility]) Ultra Thin [place] 31G X 5 MM UNK 01/18/2020 12:00:00 AM EDT active Ultra Thin [place] 31G X 5 M M eCW1 ([facility]) Ultra Thin [place] 31G X 5 MM UNK 01/18/2020 12:00:00 AM EDT active Ultra Thin [place] 31G X 5 M M eCW1 ([facility]) Ultra Thin [place] 31G X 5 MM UNK 01/18/2020 12:00:00 AM EDT active Ultra Thin [place] 31G X 5 M M eCW1 ([facility]) Ultra Thin [place] 31G X 5 MM UNK 01/18/2020 12:00:00 AM EDT active Ultra Thin [place] 31G X 5 M M eCW1 ([facility]) Ultra Thin [place] 31G X 5 MM UNK 01/18/2020 12:00:00 AM EDT active Ultra Thin [place] 31G X 5 M M eCW1 ([facility]) Ultra Thin [place] 31G X 5 MM UNK 01/18/2020 12:00:00 AM EDT active Ultra Thin [place] 31G X 5 M M eCW1 ([facility]) Ultra Thin [place] 31G X 5 MM UNK 01/18/2020 12:00:00 AM EDT active Ultra Thin [place] 31G X 5 M M eCW1 ([facility]) Ultra Thin [place] 31G X 5 MM UNK 01/18/2020 12:00:00 AM EDT active Ultra Thin [place] 31G X 5 M M eCW1 ([facility]) Ultra Thin [place] 31G X 5 MM UNK 01/18/2020 12:00:00 AM EDT active Ultra Thin [place] 31G X 5 M M eCW1 ([facility]) Ultra Thin [place] 31G X 5 MM UNK 01/18/2020 12:00:00 AM EDT active Ultra Thin [place] 31G X 5 M M eCW1 ([facility]) Ultra Thin [place] 31G X 5 MM UNK 01/18/2020 12:00:00 AM EDT active Ultra Thin [place] 31G X 5 M M eCW1 ([facility]) Ultra Thin [place] 31G X 5 MM UNK 01/18/2020 12:00:00 AM EDT active Ultra Thin [place] 31G X 5 M M eCW1 ([facility]) Ultra Thin [place] 31G X 5 MM UNK 01/18/2020 12:00:00 AM EDT active Ultra Thin [place] 31G X 5 M M eCW1 ([facility]) Ultra Thin [place] 31G X 5 MM UNK 01/18/2020 12:00:00 AM EDT active Ultra Thin [place] 31G X 5 M M eCW1 ([facility]) gabapentin 400 MG Oral Capsule Gabapentin 400 MG Gabapentin 400 MG 01/17/2020 12:00:00 AM EDT 1.0 {capsule} active G abapentin 400 MG eCW1 ([facility]) gabapentin 400 MG Oral Capsule Gabapentin 400 MG Gabapentin 400 MG 01/17/2020 12:00:00 AM EDT 1.0 {capsule} active G abapentin 400 MG eCW1 ([facility]) tizanidine 4 MG Oral Tablet Tizanidine HCl 4 MG Tizanidine H Cl 4 MG 01/17/2020 12:00:00 AM EDT 1.0 {tablet_as_needed} active Tizanidine HCl 4 MG eCW1 ([facility]) gabapentin 400 MG Oral Capsule Gabapentin 400 MG Gabapentin 400 MG 01/17/2020 12:00:00 AM EDT 1.0 {capsule} active G abapentin 400 MG eCW1 ([facility]) Lidocaine HCl 4 % UNK 01/17/2020 12:00:00 AM EDT active Lidocaine HCl 4 % eCW1 ([facility]) gabapentin 400 MG Oral Capsule Gabapentin 400 MG Gabapentin 400 MG 01/17/2020 12:00:00 AM EDT 1.0 {capsule} active G abapentin 400 MG eCW1 ([facility]) gabapentin 400 MG Oral Capsule Gabapentin 400 MG Gabapentin 400 MG 01/17/2020 12:00:00 AM EDT 1.0 {capsule} active G abapentin 400 MG eCW1 ([facility]) tizanidine 4 MG Oral Tablet Tizanidine HCl 4 MG Tizanidine H Cl 4 MG 01/17/2020 12:00:00 AM EDT 1.0 {tablet_as_needed} suspended Tizanidine HCl 4 MG eCW1 ([facility]) gabapentin 400 MG Oral Capsule Gabapentin 400 MG Gabapentin 400 MG 01/17/2020 12:00:00 AM EDT 1.0 {capsule} active G abapentin 400 MG [facility]CW[facility] [facility] tizanidine 4 MG Oral Tablet Tizanidine HCl 4 MG Tizanidine H Cl 4 MG 01/17/2020 12:00:00 AM EDT 1.0 {tablet_as_needed} active Tizanidine HCl 4 MG eCW1 ([facility]) gabapentin 400 MG Oral Capsule Gabapentin 400 MG Gabapentin 400 MG 01/17/2020 12:00:00 AM EDT 1.0 {capsule} active G abapentin 400 MG eCW1 ([facility]) Lidocaine HCl 4 % UNK 01/17/2020 12:00:00 AM EDT active Lidocaine HCl 4 % eCW1 ([facility]) gabapentin 400 MG Oral Capsule Gabapentin 400 MG Gabapentin 400 MG 01/17/2020 12:00:00 AM EDT 1.0 {capsule} active G abapentin 400 MG eCW1 ([facility]) tizanidine 4 MG Oral Tablet Tizanidine HCl 4 MG Tizanidine H Cl 4 MG 01/17/2020 12:00:00 AM EDT 1.0 {tablet_as_needed} active Tizanidine HCl 4 MG eCW1 ([facility]) gabapentin 400 MG Oral Capsule Gabapentin 400 MG Gabapentin 400 MG 01/17/2020 12:00:00 AM EDT 1.0 {capsule} active G abapentin 400 MG eCW1 ([facility]) Lidocaine HCl 4 % UNK 01/17/2020 12:00:00 AM EDT active Lidocaine HCl 4 % eCW1 ([facility]) tizanidine 4 MG Oral Tablet Tizanidine HCl 4 MG Tizanidine H Cl 4 MG 01/17/2020 12:00:00 AM EDT 1.0 {tablet_as_needed} active Tizanidine HCl 4 MG eCW1 ([facility]) gabapentin 400 MG Oral Capsule Gabapentin 400 MG Gabapentin 400 MG 01/17/2020 12:00:00 AM EDT 1.0 {capsule} active G abapentin 400 MG eCW1 ([facility]) tizanidine 4 MG Oral Tablet Tizanidine HCl 4 MG Tizanidine H Cl 4 MG 01/17/2020 12:00:00 AM EDT 1.0 {tablet_as_needed} active Tizanidine HCl 4 MG eCW1 ([facility]) gabapentin 400 MG Oral Capsule Gabapentin 400 MG Gabapentin 400 MG 01/17/2020 12:00:00 AM EDT 1.0 {capsule} active G abapentin 400 MG eCW1 ([facility]) Lidocaine HCl 4 % UNK 01/17/2020 12:00:00 AM EDT active Lidocaine HCl 4 % eCW1 ([facility]) Lidocaine HCl 4 % UNK 01/17/2020 12:00:00 AM EDT active Lidocaine HCl 4 % eCW1 ([facility]) gabapentin 400 MG Oral Capsule Gabapentin 400 MG Gabapentin 400 MG 01/17/2020 12:00:00 AM EDT 1.0 {capsule} active G abapentin 400 MG eCW1 ([facility]) Lidocaine HCl 4 % UNK 01/17/2020 12:00:00 AM EDT active Lidocaine HCl 4 % eCW1 ([facility]) tizanidine 4 MG Oral Tablet Tizanidine HCl 4 MG Tizanidine H Cl 4 MG 01/17/2020 12:00:00 AM EDT 1.0 {tablet_as_needed} active Tizanidine HCl 4 MG eCW1 ([facility]) Lidocaine HCl 4 % UNK 01/17/2020 12:00:00 AM EDT suspended Lidocaine HCl 4 % eCW1 ([facility]) gabapentin 400 MG Oral Capsule Gabapentin 400 MG Gabapentin 400 MG 01/17/2020 12:00:00 AM EDT 1.0 {capsule} active G abapentin 400 MG eCW1 ([facility]) gabapentin 400 MG Oral Capsule Gabapentin 400 MG Gabapentin 400 MG 01/17/2020 12:00:00 AM EDT 1.0 {capsule} active G abapentin 400 MG eCW1 ([facility]) tizanidine 4 MG Oral Tablet Tizanidine HCl 4 MG Tizanidine H Cl 4 MG 01/17/2020 12:00:00 AM EDT 1.0 {tablet_as_needed} active Tizanidine HCl 4 MG eCW1 ([facility]) gabapentin 400 MG Oral Capsule Gabapentin 400 MG Gabapentin 400 MG 01/17/2020 12:00:00 AM EDT 1.0 {capsule} active G abapentin 400 MG eCW1 ([facility]) Lidocaine HCl 4 % UNK 01/17/2020 12:00:00 AM EDT suspended Lidocaine HCl 4 % eCW1 ([facility]) gabapentin 400 MG Oral Capsule Gabapentin 400 MG Gabapentin 400 MG 01/17/2020 12:00:00 AM EDT 1.0 {capsule} active G abapentin 400 MG eCW1 ([facility]) tizanidine 4 MG Oral Tablet Tizanidine HCl 4 MG Tizanidine H Cl 4 MG 01/17/2020 12:00:00 AM EDT 1.0 {tablet_as_needed} active Tizanidine HCl 4 MG eCW1 ([facility]) tizanidine 4 MG Oral Tablet Tizanidine HCl 4 MG Tizanidine H Cl 4 MG 01/17/2020 12:00:00 AM EDT 1.0 {tablet_as_needed} active Tizanidine HCl 4 MG eCW1 ([facility]) Lidocaine HCl 4 % UNK 01/17/2020 12:00:00 AM EDT active Lidocaine HCl 4 % eCW1 ([facility]) Lidocaine HCl 4 % UNK 01/17/2020 12:00:00 AM EDT active Lidocaine HCl 4 % eCW1 ([facility]) gabapentin 400 MG Oral Capsule Gabapentin 400 MG Gabapentin 400 MG 01/17/2020 12:00:00 AM EDT 1.0 {capsule} active G abapentin 400 MG eCW1 ([facility]) gabapentin 400 MG Oral Capsule Gabapentin 400 MG Gabapentin 400 MG 01/17/2020 12:00:00 AM EDT 1.0 {capsule} active G abapentin 400 MG eCW1 ([facility]) Lidocaine HCl 4 % UNK 01/17/2020 12:00:00 AM EDT active Lidocaine HCl 4 % eCW1 ([facility]) tizanidine 4 MG Oral Tablet Tizanidine HCl 4 MG Tizanidine H Cl 4 MG 01/17/2020 12:00:00 AM EDT 1.0 {tablet_as_needed} active Tizanidine HCl 4 MG eCW1 ([facility]) tizanidine 4 MG Oral Tablet Tizanidine HCl 4 MG Tizanidine H Cl 4 MG 01/17/2020 12:00:00 AM EDT 1.0 {tablet_as_needed} active Tizanidine HCl 4 MG eCW1 ([facility]) gabapentin 400 MG Oral Capsule Gabapentin 400 MG Gabapentin 400 MG 01/17/2020 12:00:00 AM EDT 1.0 {capsule} active G abapentin 400 MG eCW1 ([facility]) tizanidine 4 MG Oral Tablet Tizanidine HCl 4 MG Tizanidine H Cl 4 MG 01/17/2020 12:00:00 AM EDT 1.0 {tablet_as_needed} active Tizanidine HCl 4 MG eCW1 ([facility]) gabapentin 400 MG Oral Capsule Gabapentin 400 MG Gabapentin 400 MG 01/17/2020 12:00:00 AM EDT 1.0 {capsule} active G abapentin 400 MG eCW1 ([facility]) tizanidine 4 MG Oral Tablet Tizanidine HCl 4 MG Tizanidine H Cl 4 MG 01/17/2020 12:00:00 AM EDT 1.0 {tablet_as_needed} active Tizanidine HCl 4 MG eCW1 ([facility]) Lidocaine HCl 4 % UNK 01/17/2020 12:00:00 AM EDT active Lidocaine HCl 4 % eCW1 ([facility]) Lidocaine HCl 4 % UNK 01/17/2020 12:00:00 AM EDT active Lidocaine HCl 4 % eCW1 ([facility]) tizanidine 4 MG Oral Tablet Tizanidine HCl 4 MG Tizanidine H Cl 4 MG 01/17/2020 12:00:00 AM EDT 1.0 {tablet_as_needed} active Tizanidine HCl 4 MG eCW1 ([facility]) tizanidine 4 MG Oral Tablet Tizanidine HCl 4 MG Tizanidine H Cl 4 MG 01/17/2020 12:00:00 AM EDT 1.0 {tablet_as_needed} active Tizanidine HCl 4 MG eCW1 ([facility]) Lidocaine HCl 4 % UNK 01/17/2020 12:00:00 AM EDT active Lidocaine HCl 4 % eCW1 ([facility]) tizanidine 4 MG Oral Tablet Tizanidine HCl 4 MG Tizanidine H Cl 4 MG 01/17/2020 12:00:00 AM EDT 1.0 {tablet_as_needed} active Tizanidine HCl 4 MG eCW1 ([facility]) tizanidine 4 MG Oral Tablet Tizanidine HCl 4 MG Tizanidine H Cl 4 MG 01/17/2020 12:00:00 AM EDT 1.0 {tablet_as_needed} active Tizanidine HCl 4 MG eCW1 ([facility]) Lidocaine HCl 4 % UNK 01/17/2020 12:00:00 AM EDT active Lidocaine HCl 4 % eCW1 ([facility]) gabapentin 400 MG Oral Capsule Gabapentin 400 MG Gabapentin 400 MG 01/17/2020 12:00:00 AM EDT 1.0 {capsule} active G abapentin 400 MG eCW1 ([facility]) gabapentin 400 MG Oral Capsule Gabapentin 400 MG Gabapentin 400 MG 01/17/2020 12:00:00 AM EDT 1.0 {capsule} active G abapentin 400 MG eCW1 ([facility]) tizanidine 4 MG Oral Tablet Tizanidine HCl 4 MG Tizanidine H Cl 4 MG 01/17/2020 12:00:00 AM EDT 1.0 {tablet_as_needed} active Tizanidine HCl 4 MG eCW1 ([facility]) tizanidine 4 MG Oral Tablet Tizanidine HCl 4 MG Tizanidine H Cl 4 MG 01/17/2020 12:00:00 AM EDT 1.0 {tablet_as_needed} active Tizanidine HCl 4 MG eCW1 ([facility]) Lidocaine HCl 4 % UNK 01/17/2020 12:00:00 AM EDT active Lidocaine HCl 4 % eCW1 ([facility]) gabapentin 400 MG Oral Capsule Gabapentin 400 MG Gabapentin 400 MG 01/17/2020 12:00:00 AM EDT 1.0 {capsule} active G abapentin 400 MG eCW1 ([facility]) Lidocaine HCl 4 % UNK 01/17/2020 12:00:00 AM EDT active Lidocaine HCl 4 % eCW1 ([facility]) tizanidine 4 MG Oral Tablet Tizanidine HCl 4 MG Tizanidine H Cl 4 MG 01/17/2020 12:00:00 AM EDT 1.0 {tablet_as_needed} active Tizanidine HCl 4 MG eCW1 ([facility]) Lidocaine HCl 4 % UNK 01/17/2020 12:00:00 AM EDT active Lidocaine HCl 4 % eCW1 ([facility]) tizanidine 4 MG Oral Tablet Tizanidine HCl 4 MG Tizanidine H Cl 4 MG 01/17/2020 12:00:00 AM EDT 1.0 {tablet_as_needed} active Tizanidine HCl 4 MG eCW1 ([facility]) gabapentin 400 MG Oral Capsule Gabapentin 400 MG Gabapentin 400 MG 01/17/2020 12:00:00 AM EDT 1.0 {capsule} active G abapentin 400 MG eCW1 ([facility]) Lidocaine HCl 4 % UNK 01/17/2020 12:00:00 AM EDT active Lidocaine HCl 4 % eCW1 ([facility]) tizanidine 4 MG Oral Tablet Tizanidine HCl 4 MG Tizanidine H Cl 4 MG 01/17/2020 12:00:00 AM EDT 1.0 {tablet_as_needed} active Tizanidine HCl 4 MG eCW1 ([facility]) Lidocaine HCl 4 % UNK 01/17/2020 12:00:00 AM EDT active Lidocaine HCl 4 % eCW1 ([facility]) tizanidine 4 MG Oral Tablet Tizanidine HCl 4 MG Tizanidine H Cl 4 MG 01/17/2020 12:00:00 AM EDT 1.0 {tablet_as_needed} active Tizanidine HCl 4 MG eCW1 ([facility]) tizanidine 4 MG Oral Tablet Tizanidine HCl 4 MG Tizanidine H Cl 4 MG 01/17/2020 12:00:00 AM EDT active 1 tablet as needed eCW1 ([facility]) Lidocaine HCl 4 % UNK 01/17/2020 12:00:00 AM EDT active Lidocaine HCl 4 % eCW1 ([facility]) Lidocaine HCl 4 % UNK 01/17/2020 12:00:00 AM EDT suspended Lidocaine HCl 4 % eCW1 ([facility]) Lidocaine HCl 4 % UNK 01/17/2020 12:00:00 AM EDT active 1 application, shoulder, knee, buttock as needed eCW1 ([facility]) Lidocaine HCl 4 % UNK 01/17/2020 12:00:00 AM EDT active Lidocaine HCl 4 % eCW1 ([facility]) Lidocaine HCl 4 % UNK 01/17/2020 12:00:00 AM EDT active Lidocaine HCl 4 % eCW1 ([facility]) gabapentin 400 MG Oral Capsule Gabapentin 400 MG Gabapentin 400 MG 01/17/2020 12:00:00 AM EDT 1.0 {capsule} active G abapentin 400 MG eCW1 ([facility]) Lidocaine HCl 4 % UNK 01/17/2020 12:00:00 AM EDT active Lidocaine HCl 4 % eCW1 ([facility]) gabapentin 400 MG Oral Capsule Gabapentin 400 MG Gabapentin 400 MG 01/17/2020 12:00:00 AM EDT active 1 capsul e eCW1 ([facility]) gabapentin 400 MG Oral Capsule Gabapentin 400 MG Gabapentin 400 MG 01/17/2020 12:00:00 AM EDT 1.0 {capsule} active G abapentin 400 MG eCW1 ([facility]) Lidocaine HCl 4 % UNK 01/17/2020 12:00:00 AM EDT active Lidocaine HCl 4 % eCW1 ([facility]) gabapentin 400 MG Oral Capsule Gabapentin 400 MG Gabapentin 400 MG 01/17/2020 12:00:00 AM EDT 1.0 {capsule} active G abapentin 400 MG eCW1 ([facility]) tizanidine 4 MG Oral Tablet Tizanidine HCl 4 MG Tizanidine H Cl 4 MG 01/17/2020 12:00:00 AM EDT 1.0 {tablet_as_needed} active Tizanidine HCl 4 MG eCW1 ([facility]) tizanidine 4 MG Oral Tablet Tizanidine HCl 4 MG Tizanidine H Cl 4 MG 01/17/2020 12:00:00 AM EDT 1.0 {tablet_as_needed} active Tizanidine HCl 4 MG eCW1 ([facility]) gabapentin 400 MG Oral Capsule Gabapentin 400 MG Gabapentin 400 MG 01/17/2020 12:00:00 AM EDT 1.0 {capsule} active G abapentin 400 MG eCW1 ([facility]) tizanidine 4 MG Oral Tablet Tizanidine HCl 4 MG Tizanidine H Cl 4 MG 01/17/2020 12:00:00 AM EDT 1.0 {tablet_as_needed} active Tizanidine HCl 4 MG eCW1 ([facility]) Lidocaine HCl 4 % UNK 01/17/2020 12:00:00 AM EDT suspended Lidocaine HCl 4 % eCW1 ([facility]) Lidocaine HCl 4 % UNK 01/17/2020 12:00:00 AM EDT active Lidocaine HCl 4 % eCW1 ([facility]) gabapentin 400 MG Oral Capsule Gabapentin 400 MG Gabapentin 400 MG 01/17/2020 12:00:00 AM EDT 1.0 {capsule} active G abapentin 400 MG eCW1 ([facility]) gabapentin 400 MG Oral Capsule Gabapentin 400 MG Gabapentin 400 MG 01/17/2020 12:00:00 AM EDT 1.0 {capsule} active G abapentin 400 MG eCW1 ([facility]) tizanidine 4 MG Oral Tablet Tizanidine HCl 4 MG Tizanidine H Cl 4 MG 01/17/2020 12:00:00 AM EDT 1.0 {tablet_as_needed} active Tizanidine HCl 4 MG eCW1 ([facility]) Lidocaine HCl 4 % UNK 01/17/2020 12:00:00 AM EDT active Lidocaine HCl 4 % eCW1 ([facility]) gabapentin 400 MG Oral Capsule Gabapentin 400 MG Gabapentin 400 MG 01/17/2020 12:00:00 AM EDT 1.0 {capsule} active G abapentin 400 MG eCW1 ([facility]) tizanidine 4 MG Oral Tablet Tizanidine HCl 4 MG Tizanidine H Cl 4 MG 01/17/2020 12:00:00 AM EDT 1.0 {tablet_as_needed} active Tizanidine HCl 4 MG eCW1 ([facility]) Lidocaine HCl 4 % UNK 01/17/2020 12:00:00 AM EDT active Lidocaine HCl 4 % eCW1 ([facility]) tizanidine 4 MG Oral Tablet Tizanidine HCl 4 MG Tizanidine H Cl 4 MG 01/17/2020 12:00:00 AM EDT 1.0 {tablet_as_needed} active Tizanidine HCl 4 MG eCW1 ([facility]) gabapentin 400 MG Oral Capsule Gabapentin 400 MG Gabapentin 400 MG 01/17/2020 12:00:00 AM EDT 1.0 {capsule} active G abapentin 400 MG eCW1 ([facility]) duloxetine 60 MG Delayed Release Oral Capsule Duloxeti ne HCl 60 MG Duloxetine HCl 60 MG 10/24/2019 12:00:00 AM EST 1.0 {capsule} a ctive Duloxetine HCl 60 MG eCW1 ([facility]) duloxetine 60 MG Delayed Release Oral Capsule Duloxeti ne HCl 60 MG Duloxetine HCl 60 MG 10/24/2019 12:00:00 AM EST 1.0 {capsule} a ctive Duloxetine HCl 60 MG eCW1 ([facility]) duloxetine 60 MG Delayed Release Oral Capsule Duloxeti ne HCl 60 MG Duloxetine HCl 60 MG 10/24/2019 12:00:00 AM EST 1.0 {capsule} s uspended Duloxetine HCl 60 MG eCW1 ([facility]) duloxetine 60 MG Delayed Release Oral Capsule Duloxeti ne HCl 60 MG Duloxetine HCl 60 MG 10/24/2019 12:00:00 AM EST 1.0 {capsule} a ctive Duloxetine HCl 60 MG eCW1 ([facility]) duloxetine 30 MG Delayed Release Oral Capsule Duloxeti ne HCl 30 MG Duloxetine HCl 30 MG 10/24/2019 12:00:00 AM EST suspende d Duloxetine HCl 30 MG eCW1 ([facility]) duloxetine 60 MG Delayed Release Oral Capsule Duloxeti ne HCl 60 MG Duloxetine HCl 60 MG 10/24/2019 12:00:00 AM EST 1.0 {capsule} a ctive Duloxetine HCl 60 MG eCW1 ([facility]) duloxetine 60 MG Delayed Release Oral Capsule Duloxeti ne HCl 60 MG Duloxetine HCl 60 MG 10/24/2019 12:00:00 AM EST 1.0 {capsule} a ctive Duloxetine HCl 60 MG eCW1 ([facility]) duloxetine 30 MG Delayed Release Oral Capsule Duloxeti ne HCl 30 MG Duloxetine HCl 30 MG 10/24/2019 12:00:00 AM EST active Duloxetine HCl 30 MG eCW1 ([facility]) duloxetine 30 MG Delayed Release Oral Capsule Duloxeti ne HCl 30 MG Duloxetine HCl 30 MG 10/24/2019 12:00:00 AM EST active Duloxetine HCl 30 MG eCW1 ([facility]) duloxetine 60 MG Delayed Release Oral Capsule Duloxeti ne HCl 60 MG Duloxetine HCl 60 MG 10/24/2019 12:00:00 AM EST 1.0 {capsule} s uspended Duloxetine HCl 60 MG eCW1 ([facility]) duloxetine 30 MG Delayed Release Oral Capsule Duloxeti ne HCl 30 MG Duloxetine HCl 30 MG 10/24/2019 12:00:00 AM EST active 1 capsule c -1 60mg capsule eCW1 ([facility]) duloxetine 60 MG Delayed Release Oral Capsule Duloxeti ne HCl 60 MG Duloxetine HCl 60 MG 10/24/2019 12:00:00 AM EST 1.0 {capsule} s uspended Duloxetine HCl 60 MG eCW1 ([facility]) duloxetine 30 MG Delayed Release Oral Capsule Duloxeti ne HCl 30 MG Duloxetine HCl 30 MG 10/24/2019 12:00:00 AM EST suspende d Duloxetine HCl 30 MG eCW1 ([facility]) duloxetine 60 MG Delayed Release Oral Capsule Duloxeti ne HCl 60 MG Duloxetine HCl 60 MG 10/24/2019 12:00:00 AM EST 1.0 {capsule} a ctive Duloxetine HCl 60 MG eCW1 ([facility]) duloxetine 60 MG Delayed Release Oral Capsule Duloxeti ne HCl 60 MG Duloxetine HCl 60 MG 10/24/2019 12:00:00 AM EST 1.0 {capsule} s uspended Duloxetine HCl 60 MG eCW1 ([facility]) duloxetine 30 MG Delayed Release Oral Capsule Duloxeti ne HCl 30 MG Duloxetine HCl 30 MG 10/24/2019 12:00:00 AM EST suspende d Duloxetine HCl 30 MG eCW1 ([facility]) duloxetine 30 MG Delayed Release Oral Capsule Duloxeti ne HCl 30 MG Duloxetine HCl 30 MG 10/24/2019 12:00:00 AM EST active Duloxetine HCl 30 MG eCW1 ([facility]) duloxetine 30 MG Delayed Release Oral Capsule Duloxeti ne HCl 30 MG Duloxetine HCl 30 MG 10/24/2019 12:00:00 AM EST suspende d Duloxetine HCl 30 MG eCW1 ([facility]) duloxetine 60 MG Delayed Release Oral Capsule Duloxeti ne HCl 60 MG Duloxetine HCl 60 MG 10/24/2019 12:00:00 AM EST 1.0 {capsule} s uspended Duloxetine HCl 60 MG eCW1 ([facility]) duloxetine 60 MG Delayed Release Oral Capsule Duloxeti ne HCl 60 MG Duloxetine HCl 60 MG 10/24/2019 12:00:00 AM EST active 1 capsule eCW1 ([facility]) duloxetine 60 MG Delayed Release Oral Capsule Duloxeti ne HCl 60 MG Duloxetine HCl 60 MG 10/24/2019 12:00:00 AM EST 1.0 {capsule} s uspended Duloxetine HCl 60 MG eCW1 ([facility]) duloxetine 30 MG Delayed Release Oral Capsule Duloxeti ne HCl 30 MG Duloxetine HCl 30 MG 10/24/2019 12:00:00 AM EST active Duloxetine HCl 30 MG eCW1 ([facility]) duloxetine 30 MG Delayed Release Oral Capsule Duloxeti ne HCl 30 MG Duloxetine HCl 30 MG 10/24/2019 12:00:00 AM EST suspende d Duloxetine HCl 30 MG eCW1 ([facility]) duloxetine 60 MG Delayed Release Oral Capsule Duloxeti ne HCl 60 MG Duloxetine HCl 60 MG 10/24/2019 12:00:00 AM EST 1.0 {capsule} s uspended Duloxetine HCl 60 MG eCW1 ([facility]) duloxetine 60 MG Delayed Release Oral Capsule Duloxeti ne HCl 60 MG Duloxetine HCl 60 MG 10/24/2019 12:00:00 AM EST 1.0 {capsule} s uspended Duloxetine HCl 60 MG eCW1 ([facility]) duloxetine 60 MG Delayed Release Oral Capsule Duloxeti ne HCl 60 MG Duloxetine HCl 60 MG 10/24/2019 12:00:00 AM EST active 1 capsule eCW1 ([facility]) duloxetine 60 MG Delayed Release Oral Capsule Duloxeti ne HCl 60 MG Duloxetine HCl 60 MG 10/24/2019 12:00:00 AM EST 1.0 {capsule} s uspended Duloxetine HCl 60 MG eCW1 ([facility]) duloxetine 60 MG Delayed Release Oral Capsule Duloxeti ne HCl 60 MG Duloxetine HCl 60 MG 10/24/2019 12:00:00 AM EST 1.0 {capsule} a ctive Duloxetine HCl 60 MG eCW1 ([facility]) duloxetine 60 MG Delayed Release Oral Capsule Duloxeti ne HCl 60 MG Duloxetine HCl 60 MG 10/24/2019 12:00:00 AM EST 1.0 {capsule} s uspended Duloxetine HCl 60 MG eCW1 ([facility]) duloxetine 60 MG Delayed Release Oral Capsule Duloxeti ne HCl 60 MG Duloxetine HCl 60 MG 10/24/2019 12:00:00 AM EST 1.0 {capsule} a ctive Duloxetine HCl 60 MG eCW1 ([facility]) duloxetine 60 MG Delayed Release Oral Capsule Duloxeti ne HCl 60 MG Duloxetine HCl 60 MG 10/24/2019 12:00:00 AM EST 1.0 {capsule} s uspended Duloxetine HCl 60 MG eCW1 ([facility]) duloxetine 30 MG Delayed Release Oral Capsule Duloxeti ne HCl 30 MG Duloxetine HCl 30 MG 10/24/2019 12:00:00 AM EST suspende d Duloxetine HCl 30 MG eCW1 ([facility]) duloxetine 60 MG Delayed Release Oral Capsule Duloxeti ne HCl 60 MG Duloxetine HCl 60 MG 10/24/2019 12:00:00 AM EST 1.0 {capsule} a ctive Duloxetine HCl 60 MG eCW1 ([facility]) duloxetine 30 MG Delayed Release Oral Capsule Duloxeti ne HCl 30 MG Duloxetine HCl 30 MG 10/24/2019 12:00:00 AM EST suspende d Duloxetine HCl 30 MG eCW1 ([facility]) duloxetine 60 MG Delayed Release Oral Capsule Duloxeti ne HCl 60 MG Duloxetine HCl 60 MG 10/24/2019 12:00:00 AM EST 1.0 {capsule} a ctive Duloxetine HCl 60 MG eCW1 ([facility]) duloxetine 60 MG Delayed Release Oral Capsule Duloxeti ne HCl 60 MG Duloxetine HCl 60 MG 10/24/2019 12:00:00 AM EST 1.0 {capsule} s uspended Duloxetine HCl 60 MG eCW1 ([facility]) duloxetine 60 MG Delayed Release Oral Capsule Duloxeti ne HCl 60 MG Duloxetine HCl 60 MG 10/24/2019 12:00:00 AM EST 1.0 {capsule} a ctive Duloxetine HCl 60 MG eCW1 ([facility]) duloxetine 30 MG Delayed Release Oral Capsule Duloxeti ne HCl 30 MG Duloxetine HCl 30 MG 10/24/2019 12:00:00 AM EST active Duloxetine HCl 30 MG eCW1 ([facility]) duloxetine 30 MG Delayed Release Oral Capsule Duloxeti ne HCl 30 MG Duloxetine HCl 30 MG 10/24/2019 12:00:00 AM EST active 1 capsule c -1 60mg capsule eCW1 ([facility]) duloxetine 60 MG Delayed Release Oral Capsule Duloxeti ne HCl 60 MG Duloxetine HCl 60 MG 10/24/2019 12:00:00 AM EST 1.0 {capsule} s uspended Duloxetine HCl 60 MG eCW1 ([facility]) duloxetine 60 MG Delayed Release Oral Capsule Duloxeti ne HCl 60 MG Duloxetine HCl 60 MG 10/24/2019 12:00:00 AM EST 1.0 {capsule} a ctive Duloxetine HCl 60 MG eCW1 ([facility]) duloxetine 30 MG Delayed Release Oral Capsule Duloxeti ne HCl 30 MG Duloxetine HCl 30 MG 10/24/2019 12:00:00 AM EST active Duloxetine HCl 30 MG eCW1 ([facility]) duloxetine 60 MG Delayed Release Oral Capsule Duloxeti ne HCl 60 MG Duloxetine HCl 60 MG 10/24/2019 12:00:00 AM EST 1.0 {capsule} a ctive Duloxetine HCl 60 MG eCW1 ([facility]) duloxetine 60 MG Delayed Release Oral Capsule Duloxeti ne HCl 60 MG Duloxetine HCl 60 MG 10/24/2019 12:00:00 AM EST 1.0 {capsule} s uspended Duloxetine HCl 60 MG eCW1 ([facility]) duloxetine 60 MG Delayed Release Oral Capsule Duloxeti ne HCl 60 MG Duloxetine HCl 60 MG 10/24/2019 12:00:00 AM EST 1.0 {capsule} a ctive Duloxetine HCl 60 MG eCW1 ([facility]) duloxetine 60 MG Delayed Release Oral Capsule Duloxeti ne HCl 60 MG Duloxetine HCl 60 MG 10/24/2019 12:00:00 AM EST 1.0 {capsule} s uspended Duloxetine HCl 60 MG eCW1 ([facility]) duloxetine 60 MG Delayed Release Oral Capsule Duloxeti ne HCl 60 MG Duloxetine HCl 60 MG 10/24/2019 12:00:00 AM EST 1.0 {capsule} s uspended Duloxetine HCl 60 MG eCW1 ([facility]) alogliptin 25 MG Oral Tablet Alogliptin Benzoate 25 MG Alogliptin Benzoate 25 MG 10/13/2019 12:00:00 AM EST active Alogliptin Benzoate 25 MG eCW1 ([facility]) alogliptin 6.25 MG Oral Tablet Alogliptin Benzoate 6.2 5 MG Alogliptin Benzoate 6.25 MG 10/13/2019 12:00:00 AM EST active 1 tab eCW1 ([facility]) alogliptin 6.25 MG Oral Tablet Alogliptin Benzoate 6.2 5 MG Alogliptin Benzoate 6.25 MG 10/13/2019 12:00:00 AM EST active Alogliptin Benzoate 6.25 MG eCW1 ([facility]) alogliptin 6.25 MG Oral Tablet Alogliptin Benzoate 6.2 5 MG Alogliptin Benzoate 6.25 MG 10/13/2019 12:00:00 AM EST active Alogliptin Benzoate 6.25 MG eCW1 ([facility]) alogliptin 25 MG Oral Tablet Alogliptin Benzoate 25 MG Alogliptin Benzoate 25 MG 10/13/2019 12:00:00 AM EST active Alogliptin Benzoate 25 MG [facility] [facility] alogliptin 6.25 MG Oral Tablet Alogliptin Benzoate 6.2 5 MG Alogliptin Benzoate 6.25 MG 10/13/2019 12:00:00 AM EST active Alogliptin Benzoate 6.25 MG eCW1 ([facility]) alogliptin 6.25 MG Oral Tablet Alogliptin Benzoate 6.2 5 MG Alogliptin Benzoate 6.25 MG 10/13/2019 12:00:00 AM EST active Alogliptin Benzoate 6.25 MG eCW1 ([facility]) alogliptin 25 MG Oral Tablet Alogliptin Benzoate 25 MG Alogliptin Benzoate 25 MG 10/13/2019 12:00:00 AM EST active Alogliptin Benzoate 25 MG eCW1 ([facility]) alogliptin 6.25 MG Oral Tablet Alogliptin Benzoate 6.2 5 MG Alogliptin Benzoate 6.25 MG 10/13/2019 12:00:00 AM EST active Alogliptin Benzoate 6.25 MG eCW1 ([facility]) alogliptin 6.25 MG Oral Tablet Alogliptin Benzoate 6.2 5 MG Alogliptin Benzoate 6.25 MG 10/13/2019 12:00:00 AM EST active Alogliptin Benzoate 6.25 MG eCW1 ([facility]) alogliptin 6.25 MG Oral Tablet Alogliptin Benzoate 6.2 5 MG Alogliptin Benzoate 6.25 MG 10/13/2019 12:00:00 AM EST active Alogliptin Benzoate 6.25 MG eCW1 ([facility]) alogliptin 6.25 MG Oral Tablet Alogliptin Benzoate 6.2 5 MG Alogliptin Benzoate 6.25 MG 10/13/2019 12:00:00 AM EST active Alogliptin Benzoate 6.25 MG eCW1 ([facility]) alogliptin 6.25 MG Oral Tablet Alogliptin Benzoate 6.2 5 MG Alogliptin Benzoate 6.25 MG 10/13/2019 12:00:00 AM EST active Alogliptin Benzoate 6.25 MG eCW1 ([facility]) alogliptin 6.25 MG Oral Tablet Alogliptin Benzoate 6.2 5 MG Alogliptin Benzoate 6.25 MG 10/13/2019 12:00:00 AM EST active Alogliptin Benzoate 6.25 MG eCW1 ([facility]) alogliptin 25 MG Oral Tablet Alogliptin Benzoate 25 MG Alogliptin Benzoate 25 MG 10/13/2019 12:00:00 AM EST active Alogliptin Benzoate 25 MG eCW1 ([facility]) alogliptin 6.25 MG Oral Tablet Alogliptin Benzoate 6.2 5 MG Alogliptin Benzoate 6.25 MG 10/13/2019 12:00:00 AM EST active Alogliptin Benzoate 6.25 MG eCW1 ([facility]) alogliptin 6.25 MG Oral Tablet Alogliptin Benzoate 6.2 5 MG Alogliptin Benzoate 6.25 MG 10/13/2019 12:00:00 AM EST active 1 tab eCW1 ([facility]) alogliptin 6.25 MG Oral Tablet Alogliptin Benzoate 6.2 5 MG Alogliptin Benzoate 6.25 MG 10/13/2019 12:00:00 AM EST active Alogliptin Benzoate 6.25 MG eCW1 ([facility]) alogliptin 6.25 MG Oral Tablet Alogliptin Benzoate 6.2 5 MG Alogliptin Benzoate 6.25 MG 10/13/2019 12:00:00 AM EST active Alogliptin Benzoate 6.25 MG eCW1 ([facility]) alogliptin 25 MG Oral Tablet Alogliptin Benzoate 25 MG Alogliptin Benzoate 25 MG 10/13/2019 12:00:00 AM EST active Alogliptin Benzoate 25 MG eCW1 ([facility]) alogliptin 25 MG Oral Tablet Alogliptin Benzoate 25 MG Alogliptin Benzoate 25 MG 10/13/2019 12:00:00 AM EST active Alogliptin Benzoate 25 MG eCW1 ([facility]) Levofloxacin 750 MG Oral Tablet [Levaquin] Levaquin 750 MG L evaquin 750 MG 10/12/2019 12:00:00 AM EST 1.0 {tablet} suspended Levaquin 750 MG eCW1 ([facility]) Levofloxacin 750 MG Oral Tablet [Levaquin] Levaquin 750 MG L evaquin 750 MG 10/12/2019 12:00:00 AM EST 1.0 {tablet} suspended Levaquin 750 MG eCW1 ([facility]) Levofloxacin 750 MG Oral Tablet [Levaquin] Levaquin 750 MG L evaquin 750 MG 10/12/2019 12:00:00 AM EST 1.0 {tablet} suspended Levaquin 750 MG eCW1 ([facility]) Levofloxacin 750 MG Oral Tablet [Levaquin] Levaquin 750 MG L evaquin 750 MG 10/12/2019 12:00:00 AM EST 1.0 {tablet} suspended Levaquin 750 MG eCW1 ([facility]) Levofloxacin 750 MG Oral Tablet [Levaquin] Levaquin 750 MG L evaquin 750 MG 10/12/2019 12:00:00 AM EST 1.0 {tablet} suspended Levaquin 750 MG eCW1 ([facility]) Levofloxacin 750 MG Oral Tablet [Levaquin] Levaquin 750 MG L evaquin 750 MG 10/12/2019 12:00:00 AM EST active 1 tablet eCW1 ([facility]) Levofloxacin 750 MG Oral Tablet [Levaquin] Levaquin 750 MG L evaquin 750 MG 10/12/2019 12:00:00 AM EST suspended 1 tablet eCW1 ([facility]) sitagliptin 25 MG Oral Tablet [Januvia] Januvia 25 MG Januvi a 25 MG 09/21/2019 12:00:00 AM EST active as direc gabo eCW1 ([facility]) Famotidine 40 MG Oral Tablet [Pepcid] Pepcid 40 MG Pepcid 40 MG 09/07/2019 12:00:00 AM EST 1.0 {tablet_at_bedtime} active Pepcid 40 MG eCW1 ([facility]) Metoclopramide 5 MG Oral Tablet [Reglan] Reglan 5 MG Reglan 5 MG 09/07/2019 12:00:00 AM EST 1.0 {tablet_before_meals} active Reglan 5 MG eCW1 ([facility]) Probiotics UNK 09/07/2019 12:00:00 AM EST active 1-2tablet c each meal eCW1 ([facility]) Metoclopramide 5 MG Oral Tablet [Reglan] Reglan 5 MG Reglan 5 MG 09/07/2019 12:00:00 AM EST 1.0 {tablet_before_meals} suspended Reglan 5 MG eCW1 ([facility]) Metoclopramide 5 MG Oral Tablet [Reglan] Reglan 5 MG Reglan 5 MG 09/07/2019 12:00:00 AM EST 1.0 {tablet_before_meals} active Reglan 5 MG eCW1 ([facility]) Probiotics UNK 09/07/2019 12:00:00 AM EST suspend ed Probiotics eCW1 ([facility]) Probiotics UNK 09/07/2019 12:00:00 AM EST suspend ed Probiotics eCW1 ([facility]) Probiotics UNK 09/07/2019 12:00:00 AM EST suspend ed Probiotics eCW1 ([facility]) Metoclopramide 5 MG Oral Tablet [Reglan] Reglan 5 MG Reglan 5 MG 09/07/2019 12:00:00 AM EST 1.0 {tablet_before_meals} suspended Reglan 5 MG eCW1 ([facility]) Metoclopramide 5 MG Oral Tablet [Reglan] Reglan 5 MG Reglan 5 MG 09/07/2019 12:00:00 AM EST active 1 tablet before meals eCW1 ([facility]) Famotidine 40 MG Oral Tablet [Pepcid] Pepcid 40 MG Pepcid 40 MG 09/07/2019 12:00:00 AM EST 1.0 {tablet_at_bedtime} active Pepcid 40 MG eCW1 ([facility]) Famotidine 40 MG Oral Tablet [Pepcid] Pepcid 40 MG Pepcid 40 MG 09/07/2019 12:00:00 AM EST 1.0 {tablet_at_bedtime} active Pepcid 40 MG eCW1 ([facility]) Famotidine 40 MG Oral Tablet [Pepcid] Pepcid 40 MG Pepcid 40 MG 09/07/2019 12:00:00 AM EST 1.0 {tablet_at_bedtime} active Pepcid 40 MG eCW1 ([facility]) Famotidine 40 MG Oral Tablet [Pepcid] Pepcid 40 MG Pepcid 40 MG 09/07/2019 12:00:00 AM EST active 1 tablet at bedtime eCW1 ([facility]) Famotidine 40 MG Oral Tablet [Pepcid] Pepcid 40 MG Pepcid 40 MG 09/07/2019 12:00:00 AM EST 1.0 {tablet_at_bedtime} active Pepcid 40 MG eCW1 ([facility]) Probiotics UNK 09/07/2019 12:00:00 AM EST suspend ed Probiotics eCW1 ([facility]) Probiotics UNK 09/07/2019 12:00:00 AM EST active Probiotics eCW1 ([facility]) Famotidine 40 MG Oral Tablet [Pepcid] Pepcid 40 MG Pepcid 40 MG 09/07/2019 12:00:00 AM EST 1.0 {tablet_at_bedtime} active Pepcid 40 MG eCW1 ([facility]) Probiotics UNK 09/07/2019 12:00:00 AM EST active 1-2tablet c each meal eCW1 ([facility]) Famotidine 40 MG Oral Tablet [Pepcid] Pepcid 40 MG Pepcid 40 MG 09/07/2019 12:00:00 AM EST 1.0 {tablet_at_bedtime} active Pepcid 40 MG eCW1 ([facility]) Famotidine 40 MG Oral Tablet [Pepcid] Pepcid 40 MG Pepcid 40 MG 09/07/2019 12:00:00 AM EST 1.0 {tablet_at_bedtime} active Pepcid 40 MG eCW1 ([facility]) Famotidine 40 MG Oral Tablet [Pepcid] Pepcid 40 MG Pepcid 40 MG 09/07/2019 12:00:00 AM EST 1.0 {tablet_at_bedtime} active Pepcid 40 MG eCW1 ([facility]) Metoclopramide 5 MG Oral Tablet [Reglan] Reglan 5 MG Reglan 5 MG 09/07/2019 12:00:00 AM EST 1.0 {tablet_before_meals} suspended Reglan 5 MG eCW1 ([facility]) Famotidine 40 MG Oral Tablet [Pepcid] Pepcid 40 MG Pepcid 40 MG 09/07/2019 12:00:00 AM EST 1.0 {tablet_at_bedtime} active Pepcid 40 MG eCW1 ([facility]) Famotidine 40 MG Oral Tablet [Pepcid] Pepcid 40 MG Pepcid 40 MG 09/07/2019 12:00:00 AM EST active 1 tablet at bedtime eCW1 ([facility]) Famotidine 40 MG Oral Tablet [Pepcid] Pepcid 40 MG Pepcid 40 MG 09/07/2019 12:00:00 AM EST 1.0 {tablet_at_bedtime} active Pepcid 40 MG eCW1 ([facility]) Probiotics UNK 09/07/2019 12:00:00 AM EST active Probiotics eCW1 ([facility]) Famotidine 40 MG Oral Tablet [Pepcid] Pepcid 40 MG Pepcid 40 MG 09/07/2019 12:00:00 AM EST 1.0 {tablet_at_bedtime} active Pepcid 40 MG eCW1 ([facility]) Metoclopramide 5 MG Oral Tablet [Reglan] Reglan 5 MG Reglan 5 MG 09/07/2019 12:00:00 AM EST 1.0 {tablet_before_meals} suspended Reglan 5 MG eCW1 ([facility]) Probiotics UNK 09/07/2019 12:00:00 AM EST active Probiotics eCW1 ([facility]) Famotidine 40 MG Oral Tablet [Pepcid] Pepcid 40 MG Pepcid 40 MG 09/07/2019 12:00:00 AM EST 1.0 {tablet_at_bedtime} active Pepcid 40 MG eCW1 ([facility]) Metoclopramide 5 MG Oral Tablet [Reglan] Reglan 5 MG Reglan 5 MG 09/07/2019 12:00:00 AM EST 1.0 {tablet_before_meals} suspended Reglan 5 MG eCW1 ([facility]) Probiotics UNK 09/07/2019 12:00:00 AM EST active Probiotics eCW1 ([facility]) Metoclopramide 5 MG Oral Tablet [Reglan] Reglan 5 MG Reglan 5 MG 09/07/2019 12:00:00 AM EST 1.0 {tablet_before_meals} active Reglan 5 MG eCW1 ([facility]) Cheratussin AC 100-10 MG/5ML UNK 09/07/2019 12:00:00 AM EST active 5 ml eCW1 ([facility]) Famotidine 40 MG Oral Tablet [Pepcid] Pepcid 40 MG Pepcid 40 MG 09/07/2019 12:00:00 AM EST 1.0 {tablet_at_bedtime} active Pepcid 40 MG eCW1 ([facility]) Probiotics UNK 09/07/2019 12:00:00 AM EST suspend ed Probiotics eCW1 ([facility]) Metoclopramide 5 MG Oral Tablet [Reglan] Reglan 5 MG Reglan 5 MG 09/07/2019 12:00:00 AM EST 1.0 {tablet_before_meals} suspended Reglan 5 MG eCW1 ([facility]) Famotidine 40 MG Oral Tablet [Pepcid] Pepcid 40 MG Pepcid 40 MG 09/07/2019 12:00:00 AM EST 1.0 {tablet_at_bedtime} active Pepcid 40 MG eCW1 ([facility]) Famotidine 40 MG Oral Tablet [Pepcid] Pepcid 40 MG Pepcid 40 MG 09/07/2019 12:00:00 AM EST 1.0 {tablet_at_bedtime} active Pepcid 40 MG eCW1 ([facility]) Famotidine 40 MG Oral Tablet [Pepcid] Pepcid 40 MG Pepcid 40 MG 09/07/2019 12:00:00 AM EST 1.0 {tablet_at_bedtime} active Pepcid 40 MG eCW1 ([facility]) Famotidine 40 MG Oral Tablet [Pepcid] Pepcid 40 MG Pepcid 40 MG 09/07/2019 12:00:00 AM EST 1.0 {tablet_at_bedtime} active Pepcid 40 MG eCW1 ([facility]) Probiotics UNK 09/07/2019 12:00:00 AM EST active Probiotics eCW1 ([facility]) Probiotics UNK 09/07/2019 12:00:00 AM EST suspend ed Probiotics eCW1 ([facility]) Famotidine 40 MG Oral Tablet [Pepcid] Pepcid 40 MG Pepcid 40 MG 09/07/2019 12:00:00 AM EST active 1 tablet at bedtime eCW1 ([facility]) Famotidine 40 MG Oral Tablet [Pepcid] Pepcid 40 MG Pepcid 40 MG 09/07/2019 12:00:00 AM EST 1.0 {tablet_at_bedtime} active Pepcid 40 MG eCW1 ([facility]) Famotidine 40 MG Oral Tablet [Pepcid] Pepcid 40 MG Pepcid 40 MG 09/07/2019 12:00:00 AM EST 1.0 {tablet_at_bedtime} active Pepcid 40 MG eCW1 ([facility]) Famotidine 40 MG Oral Tablet [Pepcid] Pepcid 40 MG Pepcid 40 MG 09/07/2019 12:00:00 AM EST 1.0 {tablet_at_bedtime} active Pepcid 40 MG eCW1 ([facility]) Famotidine 40 MG Oral Tablet [Pepcid] Pepcid 40 MG Pepcid 40 MG 09/07/2019 12:00:00 AM EST 1.0 {tablet_at_bedtime} active Pepcid 40 MG eCW1 ([facility]) Famotidine 40 MG Oral Tablet [Pepcid] Pepcid 40 MG Pepcid 40 MG 09/07/2019 12:00:00 AM EST 1.0 {tablet_at_bedtime} active Pepcid 40 MG eCW1 ([facility]) Metoclopramide 5 MG Oral Tablet [Reglan] Reglan 5 MG Reglan 5 MG 09/07/2019 12:00:00 AM EST 1.0 {tablet_before_meals} suspended Reglan 5 MG eCW1 ([facility]) Probiotics UNK 09/07/2019 12:00:00 AM EST active 1-2tablet c each meal eCW1 ([facility]) Metoclopramide 5 MG Oral Tablet [Reglan] Reglan 5 MG Reglan 5 MG 09/07/2019 12:00:00 AM EST active 1 tablet before meals eCW1 ([facility]) Metoclopramide 5 MG Oral Tablet [Reglan] Reglan 5 MG Reglan 5 MG 09/07/2019 12:00:00 AM EST 1.0 {tablet_before_meals} active Reglan 5 MG eCW1 ([facility]) Famotidine 40 MG Oral Tablet [Pepcid] Pepcid 40 MG Pepcid 40 MG 09/07/2019 12:00:00 AM EST 1.0 {tablet_at_bedtime} active Pepcid 40 MG eCW1 ([facility]) Metoclopramide 5 MG Oral Tablet [Reglan] Reglan 5 MG Reglan 5 MG 09/07/2019 12:00:00 AM EST 1.0 {tablet_before_meals} active Reglan 5 MG eCW1 ([facility]) Famotidine 40 MG Oral Tablet [Pepcid] Pepcid 40 MG Pepcid 40 MG 09/07/2019 12:00:00 AM EST 1.0 {tablet_at_bedtime} active Pepcid 40 MG eCW1 ([facility]) Famotidine 40 MG Oral Tablet [Pepcid] Pepcid 40 MG Pepcid 40 MG 09/07/2019 12:00:00 AM EST 1.0 {tablet_at_bedtime} active Pepcid 40 MG eCW1 ([facility]) Famotidine 40 MG Oral Tablet [Pepcid] Pepcid 40 MG Pepcid 40 MG 09/07/2019 12:00:00 AM EST 1.0 {tablet_at_bedtime} active Pepcid 40 MG eCW1 ([facility]) Probiotics UNK 09/07/2019 12:00:00 AM EST active Probiotics eCW1 ([facility]) Probiotics UNK 09/07/2019 12:00:00 AM EST suspend ed Probiotics eCW1 ([facility]) Amoxicillin 500 MG Oral Tablet Amoxicillin 500 MG 09/07/2019 12:00: 00 AM EST active 2 tablet eCW1 ([facility]) Famotidine 40 MG Oral Tablet [Pepcid] Pepcid 40 MG Pepcid 40 MG 09/07/2019 12:00:00 AM EST 1.0 {tablet_at_bedtime} active Pepcid 40 MG eCW1 ([facility]) Metoclopramide 5 MG Oral Tablet [Reglan] Reglan 5 MG Reglan 5 MG 09/07/2019 12:00:00 AM EST 1.0 {tablet_before_meals} active Reglan 5 MG eCW1 ([facility]) Metoclopramide 5 MG Oral Tablet [Reglan] Reglan 5 MG Reglan 5 MG 09/07/2019 12:00:00 AM EST active 1 tablet before meals eCW1 ([facility]) Famotidine 40 MG Oral Tablet [Pepcid] Pepcid 40 MG Pepcid 40 MG 09/07/2019 12:00:00 AM EST 1.0 {tablet_at_bedtime} active Pepcid 40 MG eCW1 ([facility]) Famotidine 40 MG Oral Tablet [Pepcid] Pepcid 40 MG Pepcid 40 MG 09/07/2019 12:00:00 AM EST 1.0 {tablet_at_bedtime} active Pepcid 40 MG eCW1 ([facility]) Famotidine 40 MG Oral Tablet [Pepcid] Pepcid 40 MG Pepcid 40 MG 09/07/2019 12:00:00 AM EST 1.0 {tablet_at_bedtime} active Pepcid 40 MG eCW1 ([facility]) Famotidine 40 MG Oral Tablet [Pepcid] Pepcid 40 MG Pepcid 40 MG 09/07/2019 12:00:00 AM EST 1.0 {tablet_at_bedtime} active Pepcid 40 MG eCW1 ([facility]) benzonatate 100 MG Oral Capsule [Tessalon Perles] Sailaja jeremías Perles 100 MG Tessalon Perles 100 MG 09/07/2019 12:00:00 AM EST active 1 capsule as needed eCW1 ([facility]) Insurance Providers Payer name Policy type / Coverage type Policy ID Covered democrat ID Covered democrat's relationship to morales Policy Morales Plan Information [employer] COMMUNITY PLAN [facility] [id number] SP [id number] [facility] COMMUNITY PLAN [facility] [id number] SP [id number] [facility]) O [id number] S [id number] [employer] COMMUNITY PLAN [facility] [id number] SP [id number] Medicaid Dental P [id number] S [id number] [facility] [id number] SP [id number] [facility] COMMUNITY PLAN [facility] [id number] SP [id number] ANSI-Medicaid [id number] ANSI-Medicaid [id number] ANSI-Medicaid [id number] ANSI-Medicaid [id number] ANSI-Medicaid [id number] [employer] Hmo Commercial [id number] Self [id number] [employer] Hmo Commercial [id number] Self [id number] [employer] Hmo Commercial [id number] Self [id number] [employer] Hmo Commercial [id number] Self [id number] UNHC COMMUNITY PLAN [id number] [id number] SP [id number] [place] Medigap Part B Self BS Family Health Plus Medigap Part B Self BS [place] Hmo Blue Option Medigap Part B Self [facility] Community Plan Commercial Self [facility] Community Plan Commercial Self [facility](MCAID) O [id number] S [id number] SELF PAY UNAVAILABLE SP UNAVAILA BLE LESIA [id number] SP [id number] LESIA [id number] SP [id number] MEDICAID [id number] SP [id number] HMO BLUE [id number] SP [id number] HMO BLUE [id number] SP [id number] Problems, Conditions, and Diagnoses Code Display Name Description Problem Type Effective Dates Data Source(s) M46.1 Solitary sacroiliitis Sacroiliitis, not elsewhere clas sified Problem 07/18/2020 12:00:00 AM EDT eCW1 ([facility]) E11.65 Hyperglycemia due to type 2 diabetes alison litus Type 2 diabetes mellitus with hyperglycemia Problem 07/10/2020 12:00:00 AM EDT eCW1 ([facility]) Type 2 diabetes mellitus with diabetic p olyneuropathy Type 2 diabetes mellitus with diabetic polyneuropathy Problem 05/18/2020 12:00:00 AM EDT MEDE NT ([facility] [id number] Ingrowing nail Ingrowing nail Problem 05/18/2020 12:00: 00 AM EDT MEDENT ([facility] E16.2 [id number] Hypoglycemia Problem 03/28/2020 12:00:00 AM EDT eCW1 ([facility]) R29.6 [id number] Falls frequently Problem 02/15/2020 12:00:00 AM EDT eCW1 ([facility]) R29.6 [id number] Falls frequently Problem 02/15/2020 12:00:00 AM EDT eCW1 ([facility]) R32 [id number] Incontinence in female Problem 02/14/2020 12 :00:00 AM EDT eCW1 ([facility]) R32 [id number] Incontinence in female Problem 02/14/2020 12 :00:00 AM EDT eCW1 ([facility]) N39.46 [id number] Mixed stress and urge urinary incontinenc e Problem 02/08/2020 12:00:00 AM EDT eCW1 ([facility]) N39.46 [id number] Mixed stress and urge urinary incontinenc e Problem 02/08/2020 12:00:00 AM EDT eCW1 ([facility]) M51.36 [id number] DDD (degenerative disc disease), lumbar P roblem 01/18/2020 12:00:00 AM EDT eCW1 ([facility]) N95.0 [id number] Postmenopausal vaginal bleeding Problem 01/18/2020 12:00:00 AM EDT eCW1 ([facility]) M51.36 [id number] DDD (degenerative disc disease), lumbar P roblem 01/18/2020 12:00:00 AM EDT eCW1 ([facility]) N95.0 48206195 PMB (postmenopausal bleeding) Problem 2019 12:00:00 AM EDT eCW1 ([facility]) N95.0 08128603 PMB (postmenopausal bleeding) Problem 2019 12:00:00 AM EDT eCW1 ([facility]) G89.29 [id number] Other chronic pain Problem 10/24/2019 12:00: 00 AM EST eCW1 ([facility]) G89.29 [id number] Other chronic pain Problem 10/24/2019 12:00: 00 AM EST eCW1 ([facility]) Surgeries/Procedures Procedure Description Date Indications Data Source(s) DEBRIDEMENT NAIL ANY METHOD 07/15/2020 12:00:00 AM EDT [facility] ([facility] DEBRIDEMENT NAIL ANY METHOD 05/06/2020 12:00:00 AM EDT [facility] ([facility] Office Visit, Est Pt., Level 4 PC 10/12/2019 12:00:00 AM EST eCW1 ([facility]) Influenza A+B 10/12/2019 12:00:00 AM EST eCW1 ([facility]) TRANS CARE MGMT 7 DAY DISCH 09/07/2019 12:00:00 AM EST eCW1 ([facility]) Results ID Date Data Source [id number] 10/01/2020 11:28:00 AM EST [place] Name Value Range Interpretation Code Description Data Debbi rce(s) Supporting Document(s) SARS-CoV-2 (COVID 19) NEGATIVE - SARS-CoV-2 (COVID19) [facility] This lab was ordered by [facility] a nd reported by [facility]. ID Date Data Source RESPIRATORY PANEL 10/01/2020 12:00:00 AM EST eCW1 ([facility]) Name Value Range Interpretation Code Description Data Debbi rce(s) Supporting Document(s) This respiratory PCR panel detects Influenza A H1, H3 and RESPIRATORY PANEL eCW1 ([facility]) ID Date Data Source [id number] 09/19/2020 02:43:00 PM EST [facility] Name Value Range Interpretation Code Description Data Debbi rce(s) Supporting Document(s) SARS coronavirus 2 RNA [Presence] in Res piratory specimen by [facility]ANDEEP with probe detection [facility] This lab was ordered by [facility] a nd reported by [facility]. ID Date Data Source URINE CULTURE 09/09/2020 12:00:00 AM EST eCW1 ([facility]) Name Value Range Interpretation Code Description Data Debbi rce(s) Supporting Document(s) URINE CULTURE eCW1 ([facility]) ID Date Data Source UA URINALYSIS 09/09/2020 12:00:00 AM EST eCW1 ([facility]) Name Value Range Interpretation Code Description Data Debbi rce(s) Supporting Document(s) UA URINALYSIS eCW1 ([facility]) ID Date Data Source Comprehensive Metabolic Profile (CMP) 07/10/2020 06:37:14 AM EDT eCW1 ([facility]) Name Value Range Interpretation Code Description Data Debbi rce(s) Supporting Document(s) 260 GLUCOSE, FASTING eCW1 ([facility]) 49.6 GLOMERULAR FILTRATION RATE eCW 1 ([facility]) 134 SODIUM LEVEL eCW1 ([facility]) 15 BLOOD UREA NITROGEN eCW1 ([facility]) 1.18 CREATININE FOR GFR eCW1 ([facility]) 4.7 POTASSIUM SERUM eCW1 ([facility]) 96 CHLORIDE LEVEL eCW1 ([facility]) 30 CARBON DIOXIDE LEVEL eCW1 ([facility]) 15 ALT/SGPT eCW1 ([facility]) 9.7 CALCIUM LEVEL eCW1 ([facility]) 84 ALKALINE PHOSPHATASE eCW1 ([facility]) 10 AST/SGOT eCW1 ([facility]) 3.4 ALBUMIN eCW1 ([facility]) 0.8 ALBUMIN/GLOBULIN RATIO eCW1 ([facility]) 7.9 TOTAL PROTEIN eCW1 ([facility]) 0.3 BILIRUBIN,TOTAL eCW1 ([facility]) ID Date Data Source [id number] 01/17/2020 12:00:00 AM EDT eCW1 ([facility]) Name Value Range Interpretation Code Description Data Debbi rce(s) Supporting Document(s) Hemoglobin A1c/Hemoglobin.total in Blood 10.6 HEMOGLOBIN A1c eCW1 ([facility]) ID Date Data Source NT-PRO BNP 01/17/2020 12:00:00 AM EDT eCW1 ([facility]) Name Value Range Interpretation Code Description Data Debbi rce(s) Supporting Document(s) 183 <125 NT-PRO BNP eCW1 ([facility]) Procedure Social History Code Duration Value Status Description Data Source(s ) Smoking 10/01/2020 12:00:00 AM EST Never Smoker completed Never S moker eCW1 ([facility]) Smoking 10/01/2020 12:00:00 AM EST Never Smoker completed Never S moker eCW1 ([facility]) Smoking 09/09/2020 12:00:00 AM EST Never Smoker completed Never S moker eCW1 ([facility]) Smoking 09/09/2020 12:00:00 AM EST Never Smoker completed Never S moker eCW1 ([facility]) Smoking 09/09/2020 12:00:00 AM EST Never Smoker completed Never S moker eCW1 ([facility]) Smoking 09/09/2020 12:00:00 AM EST Never Smoker completed Never S moker eCW1 ([facility]) Smoking 09/09/2020 12:00:00 AM EST Never Smoker completed Never S moker eCW1 ([facility]) Smoking 09/09/2020 12:00:00 AM EST Never Smoker completed Never S moker eCW1 ([facility]) Smoking 07/30/2020 12:00:00 AM EST Never Smoker completed Never S moker eCW1 ([facility]) Smoking 07/30/2020 12:00:00 AM EST Never Smoker completed Never S moker eCW1 ([facility]) Smoking 07/30/2020 12:00:00 AM EST Never Smoker completed Never S moker eCW1 ([facility]) Smoking 07/30/2020 12:00:00 AM EST Never Smoker completed Never S moker eCW1 ([facility]) Smoking 07/30/2020 12:00:00 AM EST Never Smoker completed Never S moker eCW1 ([facility]) Smoking 07/30/2020 12:00:00 AM EST Never Smoker completed Never S moker eCW1 ([facility]) Smoking 07/18/2020 12:00:00 AM EDT Never Smoker completed Never S moker eCW1 ([facility]) Smoking 07/18/2020 12:00:00 AM EDT Never Smoker completed Never S moker eCW1 ([facility]) Smoking 07/18/2020 12:00:00 AM EDT Never Smoker completed Never S moker eCW1 ([facility]) Smoking 07/17/2020 12:00:00 AM EDT Never Smoker completed Never S moker eCW1 ([facility]) Smoking 07/10/2020 12:00:00 AM EDT Never Smoker completed Never S moker eCW1 ([facility]) Smoking 03/28/2020 12:00:00 AM EDT Never Smoker completed Never S moker eCW1 ([facility]) Smoking 03/28/2020 12:00:00 AM EDT Never Smoker completed Never S moker eCW1 ([facility]) Smoking 03/28/2020 12:00:00 AM EDT Never Smoker completed Never S moker eCW1 ([facility]) Smoking 03/28/2020 12:00:00 AM EDT Never Smoker completed Never S moker eCW1 ([facility]) Smoking 03/28/2020 12:00:00 AM EDT Never Smoker completed Never S moker eCW1 ([facility]) Smoking 03/28/2020 12:00:00 AM EDT Never Smoker completed Never S moker eCW1 ([facility]) Smoking 03/28/2020 12:00:00 AM EDT Never Smoker completed Never S moker eCW1 ([facility]) Smoking 03/28/2020 12:00:00 AM EDT Never Smoker completed Never S moker eCW1 ([facility]) Smoking 02/15/2020 12:00:00 AM EDT Never Smoker completed Never S moker eCW1 ([facility]) Smoking 02/15/2020 12:00:00 AM EDT Never Smoker completed Never S moker eCW1 ([facility]) Smoking 02/15/2020 12:00:00 AM EDT Never Smoker completed Never S moker eCW1 ([facility]) Smoking 02/15/2020 12:00:00 AM EDT Never Smoker completed Never S moker eCW1 ([facility]) Smoking 02/15/2020 12:00:00 AM EDT Never Smoker completed Never S moker eCW1 ([facility]) Vital Signs ID Date Data Source UNK Name Value Range Interpretation Code Description Data Source(s) Diastolic blood pressure 80 mm[Hg] 80 mm[Hg] eCW1 ([facility]) Systolic blood pressure 120 mm[Hg] 120 mm[Hg] e CW1 ([facility]) Body temperature 97.5 [degF] 97.5 [degF] eCW1 ( [facility]) Respiratory rate 20 /min 20 /min eCW1 ([facility]) Heart rate 116 /min 116 /min eCW1 ([facility]) Body mass index (BMI) [Ratio] 52.33 kg/m2 52.33 kg/m2 eCW1 ([facility]) Body height 61 [in_i] 61 [in_i] eCW1 ([facility]) Body weight 277 [lb_av] 277 [lb_av] eCW1 ([facility]) Diastolic blood pressure 80 mm[Hg] 80 mm[Hg] eCW1 ([facility]) Systolic blood pressure 140 mm[Hg] 140 mm[Hg] e CW1 ([facility]) Body temperature 96.6 [degF] 96.6 [degF] eCW1 ( [facility]) Respiratory rate 20 /min 20 /min eCW1 ([facility]) Heart rate 100 /min 100 /min eCW1 ([facility]) Body mass index (BMI) [Ratio] 52.52 kg/m2 52.52 kg/m2 eCW1 ([facility]) Body height 61 [in_i] 61 [in_i] eCW1 ([facility]) Body weight 278 [lb_av] 278 [lb_av] eCW1 ([facility]) Diastolic blood pressure 82 mm[Hg] 82 mm[Hg] eCW1 ([facility]) Systolic blood pressure 132 mm[Hg] 132 mm[Hg] e CW1 ([facility]) Body temperature 97.4 [degF] 97.4 [degF] eCW1 ( [facility]) Respiratory rate 20 /min 20 /min eCW1 ([facility]) Heart rate 99 /min 99 /min eCW1 ([facility]) Body mass index (BMI) [Ratio] 52.26 kg/m2 52.26 kg/m2 eCW1 ([facility]) Body height 61 [in_i] 61 [in_i] eCW1 ([facility]) Body weight 276.6 [lb_av] 276.6 [lb_av] eCW1 ([facility]) Diastolic blood pressure 91 mm[Hg] 91 mm[Hg] eCW1 ([facility]) Systolic blood pressure 143 mm[Hg] 143 mm[Hg] e CW1 ([facility]) Body temperature 97.4 [degF] 97.4 [degF] eCW1 ( [facility]) Respiratory rate 20 /min 20 /min eCW1 ([facility]) Heart rate 93 /min 93 /min eCW1 ([facility]) Body mass index (BMI) [Ratio] 50.44 kg/m2 50.44 kg/m2 W1 ([facility]) Body height 61 [in_i] 61 [in_i] eCW1 ([facility]) Body weight 267 [lb_av] 267 [lb_av] eCW1 ([facility]) Diastolic blood pressure 78 mm[Hg] 78 mm[Hg] eCW1 ([facility]) Systolic blood pressure 134 mm[Hg] 134 mm[Hg] e CW1 ([facility]) Body temperature 97.4 [degF] 97.4 [degF] eCW1 ( [facility]) Respiratory rate 22 /min 22 /min eCW1 ([facility]) Heart rate 100 /min 100 /min eCW1 ([facility]) Body mass index (BMI) [Ratio] 51.88 kg/m2 51.88 kg/m2 eCW1 ([facility]) Body height 61 [in_i] 61 [in_i] eCW1 ([facility]) Body weight 274.6 [lb_av] 274.6 [lb_av] eCW1 ([facility]) Body mass index (BMI) [Ratio] 41.3 kg/m2 [...] blood pressure 76 mm[Hg] 76 mm[Hg] eCW1 ([facility]) Systolic blood pressure 130 mm[Hg] 130 mm[Hg] e CW1 ([facility]) Body temperature 97.5 [degF] 97.5 [degF] eCW1 ( [facility]) Respiratory rate 22 /min 22 /min eCW1 ([facility]) Heart rate 122 /min 122 /min eCW1 ([facility]) Body mass index (BMI) [Ratio] 50.86 kg/m2 50.86 kg/m2 W1 ([facility]) Body height 61 [in_i] 61 [in_i] eCW1 ([facility]) Body weight 269.2 [lb_av] 269.2 [lb_av] eCW1 ([facility]) Systolic blood pressure 136 mm[Hg] 136 mm[Hg] e CW1 ([facility]) Body temperature 96.9 [degF] 96.9 [degF] eCW1 ( [facility]) Respiratory rate 24 /min 24 /min eCW1 ([facility]) Heart rate 120 /min 120 /min eCW1 ([facility]) Body mass index (BMI) [Ratio] 50.90 kg/m2 50.90 kg/m2 eCW1 ([facility]) Body height 61 [in_i] 61 [in_i] eCW1 ([facility]) Body weight 269.4 [lb_av] 269.4 [lb_av] eCW1 ([facility]) Diastolic blood pressure 70 mm[Hg] 70 mm[Hg] eCW1 ([facility]) Diastolic blood pressure 78 mm[Hg] 78 mm[Hg] eCW1 ([facility]) Systolic blood pressure 128 mm[Hg] 128 mm[Hg] e CW1 ([facility]) Body temperature 97.7 [degF] 97.7 [degF] eCW1 ( [facility]) Respiratory rate 22 /min 22 /min eCW1 ([facility]) Heart rate 125 /min 125 /min eCW1 ([facility]) Body mass index (BMI) [Ratio] 50.90 kg/m2 50.90 kg/m2 eCW1 ([facility]) Body height 61 [in_us] 61 [in_us] eCW1 ([facility]) Body weight Measured 269.4 [lb_av] 269.4 [lb_av ] eCW1 ([facility]) Diastolic blood pressure 80 mm[Hg] 80 mm[Hg] eCW1 ([facility]) Systolic blood pressure 132 mm[Hg] 132 mm[Hg] e CW1 ([facility]) Body temperature 98.3 [degF] 98.3 [degF] eCW1 ( [facility]) Respiratory rate 22 /min 22 /min eCW1 ([facility]) Heart rate 106 /min 106 /min eCW1 ([facility]) Body mass index (BMI) [Ratio] 51.09 kg/m2 51.09 kg/m2 eCW1 ([facility]) Body height 61 [in_us] 61 [in_us] eCW1 ([facility]) Body weight Measured 270.4 [lb_av] 270.4 [lb_av ] eCW1 ([facility]) Diastolic blood pressure 70 mm[Hg] 70 mm[Hg] eCW1 ([facility]) Systolic blood pressure 120 mm[Hg] 120 mm[Hg] e CW1 ([facility]) Body temperature 98.0 [degF] 98.0 [degF] eCW1 ( [facility]) Respiratory rate 22 /min 22 /min eCW1 ([facility]) Heart rate 118 /min 118 /min eCW1 ([facility]) Body mass index (BMI) [Ratio] 49.73 kg/m2 49.73 kg/m2 eCW1 ([facility]) Body height 61 [in_us] 61 [in_us] eCW1 ([facility]) Body weight Measured 263.2 [lb_av] 263.2 [lb_av ] eCW1 ([facility]) Patient Treatment Plan of Care Planned Activity Planned Date Details Description Data Source (s) Fluconazole 150 MG Oral Tablet 09/09/2020 12:00:00 AM EST eCW1 ([facility]) Fluconazole 150 MG Oral Tablet 09/09/2020 12:00:00 AM EST eCW1 ([facility]) Fluconazole 150 MG Oral Tablet 09/09/2020 12:00:00 AM EST eCW1 ([facility]) Fluconazole 150 MG Oral Tablet 09/09/2020 12:00:00 AM EST eCW1 ([facility]) Fluconazole 150 MG Oral Tablet 09/09/2020 12:00:00 AM EST eCW1 ([facility]) Fluconazole 150 MG Oral Tablet 09/09/2020 12:00:00 AM EST eCW1 ([facility]) celecoxib 100 MG Oral Capsule [Celebrex] 07/18/2020 12:00:00 AM EDT eCW1 ([facility]) celecoxib 100 MG Oral Capsule [Celebrex] 07/18/2020 12:00:00 AM EDT eCW1 ([facility]) celecoxib 100 MG Oral Capsule [Celebrex] 07/18/2020 12:00:00 AM EDT eCW1 ([facility]) celecoxib 100 MG Oral Capsule [Celebrex] 07/18/2020 12:00:00 AM EDT eCW1 ([facility]) celecoxib 100 MG Oral Capsule [Celebrex] 07/18/2020 12:00:00 AM EDT eCW1 ([facility]) celecoxib 100 MG Oral Capsule [Celebrex] 07/18/2020 12:00:00 AM EDT eCW1 ([facility]) celecoxib 100 MG Oral Capsule [Celebrex] 07/18/2020 12:00:00 AM EDT eCW1 ([facility]) celecoxib 100 MG Oral Capsule [Celebrex] 07/18/2020 12:00:00 AM EDT eCW1 ([facility]) celecoxib 100 MG Oral Capsule [Celebrex] 07/18/2020 12:00:00 AM EDT eCW1 ([facility]) May Have - 02/26/2020 12:00:00 AM EDT e CW1 ([facility]) May Have - 02/26/2020 12:00:00 AM EDT e CW1 ([facility]) May Have - 02/26/2020 12:00:00 AM EDT e CW1 ([facility]) May Have - 02/26/2020 12:00:00 AM EDT e CW1 ([facility]) May Have - 02/26/2020 12:00:00 AM EDT e CW1 ([facility]) May Have - 02/26/2020 12:00:00 AM EDT e CW1 ([facility]) May Have - 02/26/2020 12:00:00 AM EDT e CW1 ([facility]) May Have - 02/26/2020 12:00:00 AM EDT e CW1 ([facility]) May Have - 02/26/2020 12:00:00 AM EDT e CW1 ([facility]) May Have - 02/26/2020 12:00:00 AM EDT e CW1 ([facility]) Prednisone 20 MG Oral Tablet 02/15/2020 12:00:00 AM EDT eCW1 ([facility]) Amoxicillin 875 MG / Clavulanate 125 MG Oral Tablet 02/15/20 20 12:00:00 AM EDT eCW1 ([facility]) Amoxicillin 875 MG / Clavulanate 125 MG Oral Tablet 02/15/20 20 12:00:00 AM EDT eCW1 ([facility]) Prednisone 20 MG Oral Tablet 02/15/2020 12:00:00 AM EDT eCW1 ([facility]) Amoxicillin 875 MG / Clavulanate 125 MG Oral Tablet 02/15/20 20 12:00:00 AM EDT eCW1 ([facility]) Prednisone 20 MG Oral Tablet 02/15/2020 12:00:00 AM EDT eCW1 ([facility]) Amoxicillin 875 MG / Clavulanate 125 MG Oral Tablet 02/15/20 20 12:00:00 AM EDT eCW1 ([facility]) Prednisone 20 MG Oral Tablet 02/15/2020 12:00:00 AM EDT eCW1 ([facility]) Amoxicillin 875 MG / Clavulanate 125 MG Oral Tablet 02/15/20 20 12:00:00 AM EDT eCW1 ([facility]) Prednisone 20 MG Oral Tablet 02/15/2020 12:00:00 AM EDT eCW1 ([facility]) Oxybutynin chloride 5 MG Oral Tablet 02/14/2020 12:00:00 AM EDT eCW1 ([facility]) Chux 02/08/2020 12:00:00 AM EDT e CW1 ([facility]) Chux 02/08/2020 12:00:00 AM EDT e CW1 ([facility]) Chux 02/08/2020 12:00:00 AM EDT e CW1 ([facility]) Chux 02/08/2020 12:00:00 AM EDT e CW1 ([facility]) Chux 02/08/2020 12:00:00 AM EDT e CW1 ([facility]) Nystatin [id number] UNT/ML Oral Suspension 01/29/2020 12:00:00 AM EDT eCW1 ([facility]) Acetaminophen 325 MG / Hydrocodone Bitartrate 5 MG Ora l Tablet 01/25/2020 12:00:00 AM EDT eCW1 ([facility]) Ultra Thin Pen [place] 31G X 5 MM 01/18/2020 12:00:00 AM EDT eCW1 ([facility]) Ultra Thin Pen [place] 31G X 5 MM 01/18/2020 12:00:00 AM EDT eCW1 ([facility]) Ultra Thin Pen [place] 31G X 5 MM 01/18/2020 12:00:00 AM EDT eCW1 ([facility]) Ultra Thin Pen [place] 31G X 5 MM 01/18/2020 12:00:00 AM EDT eCW1 ([facility]) Ultra Thin Pen [place] 31G X 5 MM 01/18/2020 12:00:00 AM EDT eCW1 ([facility]) Ultra Thin Pen [place] 31G X 5 MM 01/18/2020 12:00:00 AM EDT eCW1 ([facility]) Ultra Thin Pen [place] 31G X 5 MM 01/18/2020 12:00:00 AM EDT eCW1 ([facility]) tizanidine 4 MG Oral Tablet 01/17/2020 12:00:00 AM EDT eCW1 ([facility]) Lidocaine HCl 4 % 01/17/2020 12:00:00 AM EDT eCW1 ([facility]) tizanidine 4 MG Oral Tablet 01/17/2020 12:00:00 AM EDT eCW1 ([facility]) Lidocaine HCl 4 % 01/17/2020 12:00:00 AM EDT eCW1 ([facility]) tizanidine 4 MG Oral Tablet 01/17/2020 12:00:00 AM EDT eCW1 ([facility]) Lidocaine HCl 4 % 01/17/2020 12:00:00 AM EDT eCW1 ([facility]) tizanidine 4 MG Oral Tablet 01/17/2020 12:00:00 AM EDT eCW1 ([facility]) Lidocaine HCl 4 % 01/17/2020 12:00:00 AM EDT eCW1 ([facility]) tizanidine 4 MG Oral Tablet 01/17/2020 12:00:00 AM EDT eCW1 ([facility]) tizanidine 4 MG Oral Tablet 01/17/2020 12:00:00 AM EDT eCW1 ([facility]) Lidocaine HCl 4 % 01/17/2020 12:00:00 AM EDT eCW1 ([facility]) tizanidine 4 MG Oral Tablet 01/17/2020 12:00:00 AM EDT eCW1 ([facility]) Lidocaine HCl 4 % 01/17/2020 12:00:00 AM EDT eCW1 ([facility]) tizanidine 4 MG Oral Tablet 01/17/2020 12:00:00 AM EDT eCW1 ([facility]) tizanidine 4 MG Oral Tablet 01/17/2020 12:00:00 AM EDT eCW1 ([facility]) tizanidine 4 MG Oral Tablet 01/17/2020 12:00:00 AM EDT eCW1 ([facility]) gabapentin 400 MG Oral Capsule 01/17/2020 12:00:00 AM EDT eCW1 ([facility]) tizanidine 4 MG Oral Tablet 01/17/2020 12:00:00 AM EDT eCW1 ([facility]) gabapentin 400 MG Oral Capsule 01/17/2020 12:00:00 AM EDT eCW1 ([facility]) gabapentin 400 MG Oral Capsule 01/17/2020 12:00:00 AM EDT eCW1 ([facility]) tizanidine 4 MG Oral Tablet 01/17/2020 12:00:00 AM EDT eCW1 ([facility]) Lidocaine HCl 4 % 01/17/2020 12:00:00 AM EDT eCW1 ([facility]) tizanidine 4 MG Oral Tablet 01/17/2020 12:00:00 AM EDT eCW1 ([facility]) gabapentin 400 MG Oral Capsule 01/17/2020 12:00:00 AM EDT eCW1 ([facility]) tizanidine 4 MG Oral Tablet 01/17/2020 12:00:00 AM EDT eCW1 ([facility]) gabapentin 400 MG Oral Capsule 01/17/2020 12:00:00 AM EDT eCW1 ([facility]) duloxetine 60 MG Delayed Release Oral Capsule 10/24/2019 12:00:00 A M EST eCW1 ([facility]) duloxetine 30 MG Delayed Release Oral Capsule 10/24/2019 12:00:00 A M EST eCW1 ([facility]) alogliptin 25 MG Oral Tablet 10/13/2019 12:00:00 AM EST eCW1 ([facility]) alogliptin 6.25 MG Oral Tablet 10/13/2019 12:00:00 AM EST eCW1 ([facility]) alogliptin 25 MG Oral Tablet 10/13/2019 12:00:00 AM EST eCW1 ([facility]) alogliptin 6.25 MG Oral Tablet 10/13/2019 12:00:00 AM EST eCW1 ([facility]) alogliptin 6.25 MG Oral Tablet 10/13/2019 12:00:00 AM EST eCW1 ([facility]) alogliptin 6.25 MG Oral Tablet 10/13/2019 12:00:00 AM EST eCW1 ([facility]) alogliptin 6.25 MG Oral Tablet 10/13/2019 12:00:00 AM EST eCW1 ([facility]) alogliptin 6.25 MG Oral Tablet 10/13/2019 12:00:00 AM EST eCW1 ([facility]) alogliptin 6.25 MG Oral Tablet 10/13/2019 12:00:00 AM EST eCW1 ([facility]) alogliptin 6.25 MG Oral Tablet 10/13/2019 12:00:00 AM EST eCW1 ([facility]) alogliptin 6.25 MG Oral Tablet 10/13/2019 12:00:00 AM EST eCW1 ([facility]) alogliptin 6.25 MG Oral Tablet 10/13/2019 12:00:00 AM EST eCW1 ([facility]) Levofloxacin 750 MG Oral Tablet [Levaquin] 10/12/2019 12:00:[address] eCW1 ([facility]) sitagliptin 25 MG Oral Tablet [Januvia] 09/21/2019 12:00:00 AM EST eCW1 ([facility]) Cheratussin AC 100-10 MG/5ML 09/07/2019 12:00:00 AM EST eCW1 ([facility]) Probiotics 09/07/2019 12:00:00 AM EST e CW1 ([facility]) Amoxicillin 500 MG Oral Tablet 09/07/2019 12:00:00 AM EST eCW1 ([facility]) Metoclopramide 5 MG Oral Tablet [Reglan] 09/07/2019 12:00:00 AM EST eCW1 ([facility]) benzonatate 100 MG Oral Capsule [Tessalon Perles] 09/07/2019 12: 00:00 AM EST eCW1 ([facility]) Famotidine 40 MG Oral Tablet [Pepcid] 09/07/2019 12:00:00 AM EST eCW1 ([facility])
[2020-10-16 20:44] LABS: HEMATOCRIT 30.3 % (36.0-47.0); HEMOGLOBIN 8.6 g/dl (12.0-15.5); MEAN CORPUSCULAR HEMOGLOBIN 21.2 pg (27.0-33.0); MEAN CORPUSCULAR HGB CONC 28.4 g/dl (32.0-36.5); MEAN CORPUSCULAR VOLUME 74.6 fl (80.0-96.0); PLATELET COUNT, AUTOMATED 284 10^3/uL (150-450); RED BLOOD COUNT 4.06 10^6/uL (4.00-5.40); WHITE BLOOD COUNT 9.7 10^3/uL (4.0-10.0)
[2020-10-16] MEDS: DOCUSATE SODIUM 100MG CAPSULE PO SCH (21:00)
[2020-10-16] MEDS: HumaLOG INSULIN (NovoLOG) PER UNIT SC SCH (21:00)
[2020-10-16 21:09] LABS: BLOOD UREA NITROGEN 13 MG/DL (7-18); CALCIUM LEVEL 8.6 MG/DL (8.8-10.2); CARBON DIOXIDE LEVEL 32 MEQ/L (21-32); CHLORIDE LEVEL 100 MEQ/L (98-107); CREATININE FOR GFR 0.91 MG/DL (0.55-1.30); GLOMERULAR FILTRATION RATE > 60.0 (>45); GLUCOSE, FASTING 209 MG/DL (70-100); POTASSIUM SERUM 3.8 MEQ/L (3.5-5.1); SODIUM LEVEL 137 MEQ/L (136-145)
[2020-10-16 22:14] VITALS: BP 192/88
[2020-10-16] MEDS: traZODone 50 MG TAB PO SCH (23:06)
[2020-10-16] MEDS: DULoxetine 30 MG CAP (CYMBALTA) PO SCH (23:06)
[2020-10-16] MEDS: GABAPENTIN 400 MG CAP PO SCH (23:06)
[2020-10-16] MEDS: hydrOXYzine 50 MG TAB PO SCH (23:07)
[2020-10-16] MEDS: busPIRone 5 MG TAB PO SCH (23:07)
[2020-10-16] MEDS: LEVEMIR (INSULIN DETEMIR) 1 UNITS/0.01ML SC SCH (23:08)
[2020-10-16] MEDS: ACETAMINOPHEN TAB 650MG DOSE (2X325MG) PO PRN (23:10)
[2020-10-17] MEDS ORDERED: traMADol 50 MG TAB PO ONE
[2020-10-17] MEDS ORDERED: KETOROLAC 30 MG/ML 1ML VIAL IV ONE (03:00)
[2020-10-17] MEDS ORDERED: KETOROLAC TROMETHAMINE 10 MG TAB PO ONE (03:15)
[2020-10-17 03:21] VITALS: BP 127/70
[2020-10-17] MEDS: HEPARIN SOD (PORCINE) 5000UNITS/ML 1ML VIAL/SYRINGE SC SCH ×3 (05:34→22:37)
[2020-10-17] MEDS: LEVOTHYROXINE 100MCG TABLET (0.1MG) PO SCH (05:34)
[2020-10-17 06:00] VITALS: BP 127/69
[2020-10-17] MEDS: HumaLOG INSULIN (NovoLOG) PER UNIT SC SCH ×4 (08:36→22:36)
[2020-10-17] MEDS: LEVEMIR (INSULIN DETEMIR) 1 UNITS/0.01ML SC SCH ×2 (08:36→22:37)
[2020-10-17] MEDS: DOCUSATE SODIUM 100MG CAPSULE PO SCH ×2 (08:37→21:00)
[2020-10-17] MEDS: DULoxetine 30 MG CAP (CYMBALTA) PO SCH ×2 (08:37→22:35)
[2020-10-17] MEDS: busPIRone 5 MG TAB PO SCH ×2 (08:37→22:35)
[2020-10-17] MEDS: GABAPENTIN 400 MG CAP PO SCH ×3 (08:37→22:35)
[2020-10-17] MEDS: FUROSEMIDE 40 MG TAB PO SCH (08:37)
[2020-10-17] MEDS: VALPROIC ACID 250MG CAP PO SCH ×2 (08:37→17:30)
[2020-10-17] MEDS: ASPIRIN 81 MG ENTERIC TAB PO SCH (08:37)
[2020-10-17] MEDS: LOSARTAN 50MG TABLET PO SCH (08:39)
[2020-10-17] MEDS: CAPSAICIN 0.025% CR 60 GM TOP SCH ×4 (09:00→22:37)
[2020-10-17 09:19] LABS: BLOOD UREA NITROGEN 12 MG/DL (7-18); CALCIUM LEVEL 9.1 MG/DL (8.8-10.2); CARBON DIOXIDE LEVEL 27 MEQ/L (21-32); CHLORIDE LEVEL 102 MEQ/L (98-107); CREATININE FOR GFR 0.84 MG/DL (0.55-1.30); GLOMERULAR FILTRATION RATE > 60.0 (>45); GLUCOSE, FASTING 219 MG/DL (70-100); POTASSIUM SERUM 4.1 MEQ/L (3.5-5.1); SODIUM LEVEL 139 MEQ/L (136-145)
[2020-10-17 10:05] LABS: HEMOGLOBIN 8.6 g/dl (12.0-15.5); MEAN CORPUSCULAR HEMOGLOBIN 21.5 pg (27.0-33.0); MEAN CORPUSCULAR HGB CONC 28.7 g/dl (32.0-36.5); PLATELET COUNT, AUTOMATED 285 10^3/uL (150-450)
--- NOTE | 2020-10-17 11:12 | IPNPDOC ---
Text Note Date of Service The patient was seen on 10/17/20. NOTE Subjective: Patient was seen and examined this morning at bedside she tells me she's feeling better overall compared to yesterday her knee feels less painful and she is able to move more freely. She says she still not quite able to use her walker as she is been able to prior limited by pain. She'll be working with physical therapy today. There was no acute overnight events. Patient tells me she's otherwise feeling well Objective: Constitutional: Awake and alert, in no apparent distress, obese female ENT: Sclera are clear. Mucosa is moist. Respiratory: Lungs CTA bilaterally. No respiratory distress. No use of accessory muscles. Cardiovascular: RRR S1 and S2 are normal, no murmur Gastrointestinal: Abdomen is soft, obese, non distended, non tender Musculoskeletal: Very large lower extremities mostly fatty tissue very large diameter of both legs they are symmetrical. Left knee is tender to manipulation. Difficult to examine accurately due to her large body habitus and large leg size. Pain overall improved from yesterday so is her range of motion at the joint Neurologic: No focal neurological deficit. Mental Status: A&O x3, normal affect Skin: Warm, dry Assessment/plan: 59-year-old female with significant arthritis of her knee presents due to uncontrollable left knee pain preventing her from ambulating at home using her walker.admitted to the medical service for evaluation by physical therapy and pain management # Left knee arthritis: Evaluation by physical therapy. Pain control. We'll refer her to outpatient follow-up with orthopedic surgery. Patient is medically cleared for discharge however it is the opinion of physical therapy the patient would benefit from subacute rehabilitation prior to going home. Patient will be transitioned ALC status until this can be arranged. # Congestive heart failure: Not in exacerbation. Continue home medications including Lasix. # DM: ISS. Frequent Accu-Cheks. Hypoglycemic precautions. Levemir 25 units twice a day. # Seizure disorder: Continue Depakote # Anxiety/depression: Continue home medications # Hypertension: Continue home meds. Monitor and titrate # Hypothyroidism: resume Synthroid. # DVT prophylaxis: Heparin A Yousef Hospitalist VS,Mariusz, I+O VS, Fishbone, I+O Laboratory Tests 10/16/20 20:27 10/17/20 08:09 10/17/20 09:43 Vital Signs Date Time Temp Pulse Resp B/P (MAP) Pulse Ox O2 Delivery O2 Flow Rate FiO2 10/17/20 08:39 134/73 10/17/20 06:00 98.0 87 18 96 Room Air I&O- Last 24 Hours up to 6 AM 10/17/20 06:00 Intake Total 540 ml Output Total 0 ml Balance 540 ml ARCELIA JUNG MD Oct 17, 2020 11:12
[2020-10-17 12:00] VITALS: BP 161/85
[2020-10-17] MEDS: ACETAMINOPHEN TAB 650MG DOSE (2X325MG) PO PRN (12:58)
[2020-10-17] MEDS: POTASSIUM CHLORIDE 10 MEQ SR TABLET PO SCH (17:30)
[2020-10-17] MEDS: ATORVASTATIN 20 MG TAB PO SCH (17:30)
[2020-10-17 22:00] VITALS: BP 165/87
[2020-10-17] MEDS: traZODone 50 MG TAB PO SCH (22:35)
[2020-10-17] MEDS: hydrOXYzine 50 MG TAB PO SCH (22:35)
[2020-10-17] MEDS: PERCOCET 5MG/325MG TAB PO PRN (22:36)
[2020-10-18] MEDS: HEPARIN SOD (PORCINE) 5000UNITS/ML 1ML VIAL/SYRINGE SC SCH (05:42)
[2020-10-18] MEDS: LEVOTHYROXINE 100MCG TABLET (0.1MG) PO SCH (05:42)
[2020-10-18 06:00] VITALS: BP 137/73
[2020-10-18] MEDS: HumaLOG INSULIN (NovoLOG) PER UNIT SC SCH ×2 (08:32→12:28)
[2020-10-18] MEDS: VALPROIC ACID 250MG CAP PO SCH (08:33)
[2020-10-18] MEDS: LEVEMIR (INSULIN DETEMIR) 1 UNITS/0.01ML SC SCH (08:33)
[2020-10-18] MEDS: DULoxetine 30 MG CAP (CYMBALTA) PO SCH (08:33)
[2020-10-18] MEDS: ASPIRIN 81 MG ENTERIC TAB PO SCH (08:33)
[2020-10-18] MEDS: FUROSEMIDE 40 MG TAB PO SCH (08:34)
[2020-10-18] MEDS: busPIRone 5 MG TAB PO SCH (08:34)
[2020-10-18] MEDS: DOCUSATE SODIUM 100MG CAPSULE PO SCH (08:34)
[2020-10-18] MEDS: GABAPENTIN 400 MG CAP PO SCH (08:34)
[2020-10-18 08:35] VITALS: BP 153/96
[2020-10-18] MEDS: LOSARTAN 50MG TABLET PO SCH (08:35)
[2020-10-18] MEDS: CAPSAICIN 0.025% CR 60 GM TOP SCH ×2 (08:36→12:28)
[2020-10-18] MEDS: PERCOCET 5MG/325MG TAB PO PRN (08:39)
[2020-10-18] MEDS ORDERED: PERCOCET PO (10:58)
--- NOTE | 2020-10-18 11:13 | DS.PDOC ---
Discharge Summary General Date of Admission Oct 16, 2020 at 19:02 Date of Discharge 10/18/2020 Discharge Summary PROCEDURES PERFORMED DURING STAY: [None]. ADMITTING DIAGNOSES: 1. Left knee arthritis DISCHARGE DIAGNOSES: 1. Left knee arthritis COMPLICATIONS/CHIEF COMPLAINT: Left Knee Sprain. HISTORY OF PRESENT ILLNESS: From admitting H&P:59-year-old female with significant arthritis of her knee presents due to uncontrollable left knee pain preventing her from ambulating at home using her walker. Patient tells me that this pain has been ongoing for years but lately been getting worse the left knee is worse than the right knee. Tells me she's tried a steroid injection in her knee approximately 3 years ago and it helped but she hasn't tried it since. She says that today at home she twisted her knee and that exacerbated her pain she describes the pain as 8 out of 10 very uncomfortable and unable to use her walker to ambulate. Patient otherwise feels well and was planned to be discharged home from the emergency department however she was only able to walk a few feet and was deemed unsafe to be discharged from there patient will be admitted to the medical service for evaluation by physical therapy and pain management HOSPITAL COURSE: 59-year-old female with significant arthritis of her knee pres ents due to uncontrollable left knee pain preventing her from ambulating at home using her walker.admitted to the medical service for evaluation by physical therapy and pain management. During her hospital stay patient's left knee pain did improve and shortness of physical therapy who recommended some subacute rehabilitation would be appropriate. I did not feel that MRI imaging was necessary at this point given her clinical improvement and knee x-rays demonstrate her severe left knee arthritis which has been progressing for years upon discharge I referred her to orthopedic surgery to see if she is a candidate for knee replacement or perhaps repeat steroid injection. DISCHARGE MEDICATIONS: Please see below. ALLERGIES: Please see below. PHYSICAL EXAMINATION ON DISCHARGE: Constitutional: Awake and alert, in no apparent distress, obese female ENT: Sclera are clear. Mucosa is moist. Respiratory: Lungs CTA bilaterally. No respiratory distress. No use of accessory muscles. Cardiovascular: RRR S1 and S2 are normal, no murmur Gastrointestinal: Abdomen is soft, obese, non distended, non tender Musculoskeletal: Very large lower extremities mostly fatty tissue very large diameter of both legs they are symmetrical. Left knee is tender to manipulation but improved significantly over the past 2 days. Difficult to examine accurately due to her large body habitus and large leg size. Pain overall improved from yesterday so is her range of motion at the joint. Able to bear weight on it. Neurologic: No focal neurological deficit. Mental Status: A&O x3, normal affect Skin: Warm, dry LABORATORY DATA: Please see below. IMAGING: Left knee x-ray:Advanced 3 compartment osteoarthritis of the left knee. Diffuse osteopenia. No acute bony abnormality seen. PROGNOSIS: Fair ACTIVITY: [As tolerated]. DIET: No salt added diet DISPOSITION: Subacute rehabilitation DISCHARGE INSTRUCTIONS:Please follow up with your primary care physician within 1 week from discharge. If you do not have one, please follow up with us to schedule an appointment. Please keep all of your follow up appointments. Please call central to book your appointments with hospital specialists. Please take all your medications as prescribed. Please call/come to Clinic or go to the Emergency Department if - Temp >101, intractable Nausea/Vomiting, Diarrhea, Mouth sores, Headaches, Altered mental status, Seizures, sudden onset of swelling, bleeding, shortness of breath or chest pain. ITEMS TO FOLLOWUP ON ON OUTPATIENT: 1. Follow-up with PCP in 3-5 days of discharge. Follow-up with orthopedic surgery for further recommendations and management of your advanced left knee arthritis. DISCHARGE CONDITION: [Stable]. TIME SPENT ON DISCHARGE: 30 minutes. Vital Signs/I&Os Vital Signs Date Time Temp Pulse Resp B/P (MAP) Pulse Ox O2 Delivery O2 Flow Rate FiO2 10/18/20 09:09 18 10/18/20 08:35 153/96 10/18/20 06:00 97.6 84 97 Room Air I&O- Last 24 Hours up to 6 AM 10/18/20 06:00 Intake Total 1210 ml Output Total 1 ml Balance 1209 ml Laboratory Data Labs 24H Laboratory Tests 2 10/17/20 12:44: Bedside Glucose (Misc Panel) 237H 10/17/20 16:56: Bedside Glucose (Misc Panel) 220H 10/17/20 22:22: Bedside Glucose (Misc Panel) 319H 10/18/20 05:47: Bedside Glucose (Misc Panel) 201H FSBS Laboratory Tests Test 10/17/20 12:44 10/17/20 16:56 10/17/20 22:22 10/18/20 05:47 Range/Units Bedside Glucose (Misc Panel) 237 220 319 201 80-115 MG/DL Discharge Medications Scheduled Alogliptin Benzoate (Alogliptin) 25 Mg Tablet, 25 MG PO DAILY, (Reported) Aspirin (Aspirin EC) 81 Mg Tablet.dr, 81 MG PO DAILY, (Reported) Atorvastatin Calcium (Atorvastatin Calcium) 40 Mg Tablet, 40 MG PO QPM, (Reported) Buspirone HCl (Buspirone HCl) 15 Mg Tablet, 15 MG PO BID, (Reported) Duloxetine Hcl (Duloxetine HCl) 60 Mg Capsule.dr, 60 MG PO BID, (Reported) Furosemide (Furosemide) 40 Mg Tablet, 40 MG PO DAILY, (Reported) Gabapentin (Gabapentin) 400 Mg Capsule, 400 MG PO TID, (Reported) Hydroxyzine HCl (Hydroxyzine HCl) 50 Mg Tablet, 50 MG PO QHS, (Reported) Insulin Glargine,Hum.rec.anlog (Basaglar Kwikpen U-100) 100 Unit/1 Ml Insuln.pen, 55 UNIT SC QHS, (Reported) Levothyroxine Sodium (Synthroid) 200 Mcg Tablet, 200 MCG PO QAM, (Reported) Losartan Potassium (Losartan Potassium) 50 Mg Tablet, 50 MG PO DAILY, (Reported) Metformin HCl (Metformin HCl ER) 500 Mg Tab.er.24h, 500 MG PO QPM, (Reported) Omeprazole (Omeprazole) 40 Mg Capsule.dr, 40 MG PO BID, (Reported) Potassium Chloride (Potassium Chloride) 10 Meq Tablet.er, 10 MEQ PO QPM, (Reported) Trazodone HCl (Trazodone HCl) 150 Mg Tablet, 150 MG PO QHS, (Reported) Valproic Acid (Valproic Acid) 250 Mg Capsule, 500 MG PO BID, (Reported) TAKES 0800/1700 Scheduled PRN Acetaminophen (Acetaminophen ER) 650 Mg Tablet.er, 650 MG PO Q8H PRN for PAIN, (Reported) Lidocaine/Prilocaine (Lidocaine-Prilocaine Cream) 2.5%/2.5% Cream..g., 1 APLCT TOP DAILY PRN for PAIN, (Reported) APPLY TO SHOULDER, KNEE, HAND Oxycodone/Acetaminophen (Oxycodone-Acetaminophen 5-325) 1 Each Tablet, 1 TAB PO Q8HP PRN for MODERATE/SEVERE PAIN (PS 5-10) Propylene Glycol/Peg 400 (Systane 0.3-0.4% Eye Drops) 15 Ml Drops, 1 DROP OU QID PRN for DRY EYES, (Reported) Allergies Coded Allergies: shellfish derived (Verified Allergy, Severe, ANAPHYLAXIS, 07/19/20) atorvastatin (Verified Adverse Reaction, Intermediate, ELEVATED LIVER ENZYMES, 07/19/20) quetiapine (Verified Adverse Reaction, Intermediate, SEIZURES, 07/19/20) Hydrolyzed [place] Oil (Verified Adverse Reaction, Mild, DIARRHEA, 07/19/20) ibuprofen (Verified Adverse Reaction, Mild, UPSET STOMACH, 07/19/20) metformin (Verified Adverse Reaction, Unknown, DIARRHEA, 07/19/20) ARCELIA JUNG MD Oct 18, 2020 11:13
== END 2020-10-18 12:56 | DRG 351 ==
LOC: M ED 14:41 → EDBD 14:41 → M ED INP 19:02 → M MSPAV 22:14
PROVIDERS: ADMIT Family Medicine; ATTEND Family Medicine
DX: M17.12 Unilateral primary osteoarthritis, left knee (principal); I11.0 Hypertensive heart disease with heart failure; I50.9 Heart failure, unspecified; Z79.899 Other long term (current) drug therapy; Z79.82 Long term (current) use of aspirin; Z79.4 Long term (current) use of insulin; Z91.013 Allergy to seafood; Z88.6 Allergy status to analgesic agent; Z88.8 Allergy status to other drugs, medicaments and biological substances; E11.9 Type 2 diabetes mellitus without complications; F41.9 Anxiety disorder, unspecified; F32.9 Major depressive disorder, single episode, unspecified; E03.9 Hypothyroidism, unspecified; G40.909 Epilepsy, unspecified, not intractable, without status epilepticus

== ENCOUNTER → 2020-10-21 | Outpatient (REF) | payer OTHER ==
[~2020-10-21] MED LIST changes: +ALOG25TA PO; +ASPI81TA27 PO; +BUSP15TA47 PO; +FURO40TA2 PO; +GABA-845 PO; +LIDO2.5C15 TOP; +METF-838 PO; +PERCOCET PO; +POTA1TAB23 PO; +ULTR50TA8 PO
[2020-10-21 11:05] LABS: HEMATOCRIT 34.2 % (36.0-47.0); HEMOGLOBIN 9.8 g/dl (12.0-15.5); MEAN CORPUSCULAR HEMOGLOBIN 21.5 pg (27.0-33.0); MEAN CORPUSCULAR HGB CONC 28.7 g/dl (32.0-36.5); MEAN CORPUSCULAR VOLUME 75.2 fl (80.0-96.0); PLATELET COUNT, AUTOMATED 318 10^3/uL (150-450); RED BLOOD COUNT 4.55 10^6/uL (4.00-5.40); WHITE BLOOD COUNT 8.6 10^3/uL (4.0-10.0)
[2020-10-21 11:39] LABS: CALCIUM LEVEL 9.3 MG/DL (8.8-10.2); CREATININE FOR GFR 1.25 MG/DL (0.55-1.30); GLOMERULAR FILTRATION RATE 46.4 (>45); POTASSIUM SERUM 3.9 MEQ/L (3.5-5.1); THYROID STIMULATING HORMONE 21.9 uIU/ML (0.358-3.740)
[2020-10-21 11:55] LABS: HEMOGLOBIN A1c 11.3 %
[2020-10-21 13:55] LABS: TOTAL 25(OH) VITAMIN D 27.8 NG/ML (30.0-100.0)
[2020-10-21 15:03] LABS: APPEARANCE, URINE MANUAL CLEAR (CLEAR); BILIRUBIN, URINE MANUAL NEGATIVE (NEGATIVE); BLOOD URINE MANUAL POSITIVE (NEGATIVE); COLOR, URINE MANUAL LT YELLOW (YELLOW); GLUCOSE, URINE (UA) MANUAL 2+(250 MG/DL) mg/dL (NEGATIVE); KETONE, URINE MANUAL NEGATIVE (NEGATIVE); LEUKOCYTE ESTERASE, URINE MAN NEGATIVE (NEGATIVE); NITRITE, URINE MANUAL NEGATIVE (NEGATIVE); PH,URINE MAN 7.5 UNITS (5.0 - 7.0); PROTEIN, URINE MANUAL NEGATIVE (NEGATIVE); SPECIFIC GRAVITY,URINE MANUAL 1.005 (1.002-1.035); UROBILINOGEN, URINE MANUAL NORMAL (NORMAL)
[2020-10-21 15:08] LABS: BACTERIA, URINE NONE SEEN; HYALINE CAST, URINE NONE SEEN /lpf (0-1); RBC, URINE TNTC /hpf (0-3); SQUAMOUS EPITHELIAL CELL URINE SMALL AMOUNT /hpf (SMALL AMT); WBC, URINE 0-1 /hpf (0-3)
[2020-10-21 15:36] LABS: CREATININE, URINE < 13.0 MG/DL; MALB URINE SIEMENS 17.2 MG/L
== END ==
LOC: SKLAB2 10:10
PROVIDERS: ATTEND Internal Medicine
DX: D64.9 Anemia, unspecified (principal); N95.0 Postmenopausal bleeding

== ENCOUNTER → 2020-10-22 | Outpatient (REF) ==
[2020-10-22 14:19] LABS: APPEARANCE, URINE CLEAR (CLEAR); BACTERIA, URINE AUTO NEGATIVE (NEGATIVE); BILIRUBIN, URINE AUTO NEGATIVE (NEGATIVE); BLOOD, URINE BLOOD 3+ (NEGATIVE); COLOR, URINE YELLOW (YELLOW); GLUCOSE, URINE (UA) AUTO NEGATIVE (NEGATIVE); KETONE, URINE AUTO TRACE mg/dL (NEGATIVE); LEUKOCYTE ESTERASE, URINE AUTO NEGATIVE (NEGATIVE); NITRITE, URINE AUTO NEGATIVE (NEGATIVE); PROTEIN, URINE AUTO NEGATIVE (NEGATIVE); RBC, URINE AUTO 26 /HPF (0-3); SPECIFIC GRAVITY URINE AUTO 1.017 (1.002-1.035); SQUAMOUS EPITHELIAL CELL UR AU 2 /HPF (0-6); UROBILINOGEN, URINE AUTO 0.2 mg/dL (0.0-2.0); WBC, URINE AUTO 18 /HPF (0-3)
== END ==
LOC: SKLAB2 12:00
PROVIDERS: ATTEND Internal Medicine
DX: R31.9 Hematuria, unspecified (principal)

== ENCOUNTER → 2020-10-23 | Outpatient (REF) | LOC: SKLAB2 11:11 | PROVIDERS: ATTEND Internal Medicine | DX: Z20.822 Contact with and (suspected) exposure to COVID-19 (principal) ==

== ENCOUNTER → 2020-10-25 | Outpatient (CLI) | payer OTHER ==
--- NOTE | 2020-10-26 04:22 | REP ---
INDICATION: HEMATURIA COMPARISON: None TECHNIQUE: Real time weller scale ultrasound examination using curved array transducer. FINDINGS: Bilateral kidneys are normal in contour, size, echogenicity and reniform shape. Increased central sinus fat consistent with chronic age-related changes. No hydronephrosis, nephrolithiasis, cystic or renal mass lesion. Bladder is normal in appearance and demonstrates bilateral ureteral jets. Right kidney measures 9.8 x 4.4 x 4.7 cm. Left kidney measures 9.3 x 5.3 x 5.4 cm. IMPRESSION: 1. Normal renal ultrasound. <Electronically signed by Petey Walker > 10/26/20 0410
== END ==
LOC: M RAD 11:12
PROVIDERS: ATTEND Nurse Practitioner Family
DX: R31.9 Hematuria, unspecified (principal); Z79.4 Long term (current) use of insulin

== ENCOUNTER → 2020-10-30 | Outpatient (REF) | LOC: SKLAB3 07:04 | PROVIDERS: ATTEND Internal Medicine | DX: Z20.822 Contact with and (suspected) exposure to COVID-19 (principal) ==

== ENCOUNTER → 2020-10-31 | Outpatient (CLI) | payer OTHER ==
--- NOTE | 2020-11-01 03:42 | REP ---
INDICATION: VAGINAL BLEEDING ANEMIA COMPARISON: None. TECHNIQUE: Transabdominal pelvic ultrasound followed by transvaginal examination for better evaluation of the endometrium and adnexa. FINDINGS: Bladder is unremarkable and measures 10.2 x 5.4 x 8.2 cm. Normal anteverted uterus measures 8.1 x 3.9 x 3.6 cm. The endometrial complex measures 10.8 mm thickness. No discrete uterine or endometrial abnormalities are appreciated. Bilateral ovaries are not visualized on either transabdominal or transvaginal images. No pelvic fluid or adnexal mass lesion identified. IMPRESSION: Normal uterus. Ovaries not visualized. <Electronically signed by Petey Walker > 11/01/20 1406
== END ==
LOC: M RAD 12:27
PROVIDERS: ATTEND Nurse Practitioner Family
DX: D64.9 Anemia, unspecified (principal); N93.9 Abnormal uterine and vaginal bleeding, unspecified

== ENCOUNTER → 2020-11-06 | Outpatient (REF) | LOC: SKLAB3 07:00 | PROVIDERS: ATTEND Internal Medicine | DX: Z20.822 Contact with and (suspected) exposure to COVID-19 (principal) ==

== ENCOUNTER → 2020-11-13 | Outpatient (REF) | payer OTHER ==
[~2020-11-13] MED LIST changes: +ADME100I SC; +FERR32TA PO; +LEVO50TA5 PO
[2020-11-13 07:01] LABS: HEMOGLOBIN 7.9 g/dl (12.0-15.5); MEAN CORPUSCULAR HEMOGLOBIN 21.6 pg (27.0-33.0); MEAN CORPUSCULAR HGB CONC 29.3 g/dl (32.0-36.5); PLATELET COUNT, AUTOMATED 271 10^3/uL (150-450); RED BLOOD COUNT 3.65 10^6/uL (4.00-5.40); WHITE BLOOD COUNT 6.2 10^3/uL (4.0-10.0)
[2020-11-13 07:41] LABS: BLOOD UREA NITROGEN 16 MG/DL (7-18); CALCIUM LEVEL 9.2 MG/DL (8.8-10.2); CARBON DIOXIDE LEVEL 34 MEQ/L (21-32); CHLORIDE LEVEL 99 MEQ/L (98-107); CREATININE FOR GFR 0.91 MG/DL (0.55-1.30); GLOMERULAR FILTRATION RATE > 60.0 (>45); GLUCOSE, FASTING 216 MG/DL (70-100); POTASSIUM SERUM 4.2 MEQ/L (3.5-5.1); SODIUM LEVEL 138 MEQ/L (136-145); THYROID STIMULATING HORMONE 0.746 uIU/ML (0.358-3.740)
--- NOTE | 2020-11-15 00:36 | ECGEPIP ---
[facility] Test Date: 2020-11-13 Pat Name: KAIN RUIZ Department: Room: - Gender: Female Medical Charge Entry Specialist: JESSICA : [id number] Requested By: Paul Orellana Order Number: [id number] Reading MD: Dewayne Murillo Measurements Intervals [place] Rate: 88 P: 43 FL: 152 QRS: 4 QRSD: 94 T: 88 QT: 402 QTc: 486 Interpretive Statements Normal sinus rhythm Compared to the last 3 tracings in the system, no significant changes Electronically Signed on 11-15-2020 0:36:21 EST by Dewayne Murillo
== END ==
LOC: SKLAB3 00:36
PROVIDERS: ATTEND Internal Medicine
DX: Z01.818 Encounter for other preprocedural examination (principal); Z20.822 Contact with and (suspected) exposure to COVID-19
CPT/HCPCS: 36415; 80048; 83550; 84443; 85027; 86850; 86870; 86900; 86901; 86920; 93005; U0003

== ENCOUNTER 2020-11-14 11:04 | Outpatient (CLI) | payer OTHER ==
[~2020-11-14] VITALS: Ht 154.9 cm; Wt 123.0 kg
[2020-11-14] VITALS (7 sets, daily range): BP systolic 115–144; BP diastolic 58–88
[~2020-11-14 11:04] MED LIST changes: +ACETAMINOPHEN TAB 650MG DOSE (2X325MG) PO SCH; -ADME100I SC; -FERR32TA PO; -LEVO50TA5 PO; +diphenhydrAMINE 25MG CAP PO SCH
== END 2020-11-14 16:30 | disposition home or self-care (01) ==
LOC: M INFU 11:04
PROVIDERS: ATTEND Nurse Practitioner Family
DX: D64.9 Anemia, unspecified (principal); Z88.8 Allergy status to other drugs, medicaments and biological substances
CPT/HCPCS: 36430; P9016

== ENCOUNTER → 2020-11-15 | Outpatient (REF) | payer OTHER ==
[~2020-11-15] MED LIST changes: -ACETAMINOPHEN TAB 650MG DOSE (2X325MG) PO SCH; +ADME100I SC; +FERR32TA PO; +LEVO50TA5 PO; -diphenhydrAMINE 25MG CAP PO SCH
[2020-11-15 08:09] LABS: HEMATOCRIT 37.3 % (36.0-47.0); HEMOGLOBIN 10.8 g/dl (12.0-15.5); MEAN CORPUSCULAR VOLUME 76.1 fl (80.0-96.0); PLATELET COUNT, AUTOMATED 297 10^3/uL (150-450)
== END ==
LOC: SKLAB3 11-12 07:00
PROVIDERS: ATTEND Internal Medicine
DX: D64.9 Anemia, unspecified (principal)

== ENCOUNTER → 2020-11-21 | Outpatient (REF) | payer OTHER ==
[~2020-11-21] MED LIST changes: +ASPI-569 PO; -ASPI81TAEC PO
[2020-11-21 08:50] LABS: HEMATOCRIT 39.4 % (36.0-47.0); HEMOGLOBIN 11.5 g/dl (12.0-15.5); MEAN CORPUSCULAR HEMOGLOBIN 22.7 pg (27.0-33.0); MEAN CORPUSCULAR HGB CONC 29.2 g/dl (32.0-36.5); MEAN CORPUSCULAR VOLUME 77.9 fl (80.0-96.0); PLATELET COUNT, AUTOMATED 313 10^3/uL (150-450); RED BLOOD COUNT 5.06 10^6/uL (4.00-5.40); WHITE BLOOD COUNT 7.9 10^3/uL (4.0-10.0)
== END ==
LOC: SKLAB3 07:00
PROVIDERS: ATTEND Internal Medicine
DX: D64.9 Anemia, unspecified (principal)

== ENCOUNTER → 2020-11-27 | Outpatient (REF) | payer OTHER | LOC: SKLAB3 14:21 | PROVIDERS: ATTEND Internal Medicine | DX: Z20.822 Contact with and (suspected) exposure to COVID-19 (principal) ==

== ENCOUNTER → 2020-11-28 | Outpatient (REF) | payer OTHER | LOC: SKLAB3 11:16 | PROVIDERS: ATTEND Internal Medicine | DX: Z20.822 Contact with and (suspected) exposure to COVID-19 (principal) ==

== ENCOUNTER 2020-12-03 09:04 | Day surgery (SDC) | payer OTHER ==
[~2020-12-03] VITALS: Ht 154.9 cm; Wt 93.0 kg
[~2020-12-03 09:04] MED LIST changes: +LIDOCAINE 2% 100MG/5ML SDV (FOR ANES.) As Ordered ONE; +LR 1,000 ML IV ONE; +MIDAZOLAM INJ 2MG/2ML VIAL (J2250 PER 1MG) As Ordered ONE; +ONDANSETRON 4MG/2ML VIAL As Ordered ONE; +dexameTHASONE 4 MG/ML 1ML VIAL (J1100 PER 1MG) As Ordered ONE; +fentaNYL 100 MCG/2 ML INJECTION (J3010) As Ordered ONE; +propofoL 200 MG/20 ML VIAL As Ordered ONE
[2020-12-03] MEDS ORDERED: ROCURONIUM BROMIDE 50 MG/5 ML VIAL As Ordered ONE (10:03)
[2020-12-03] MEDS ORDERED: fentaNYL 100 MCG/2 ML INJECTION (J3010) As Ordered ONE (10:51)
[2020-12-03] MEDS ORDERED: ACETAMINOPHEN 1000MG 100ML IV BTL (OFIRMEV) (J0131 PER 10MG) As Ordered ONE (10:54)
[2020-12-03] MEDS ORDERED: KETOROLAC 60MG 2ML VIAL As Ordered ONE (10:56)
[2020-12-03] MEDS ORDERED: SUGAMMADEX SODIUM 500 MG/5 ML VIAL (BRIDION) As Ordered ONE (10:56)
[2020-12-03] MEDS ORDERED: propofoL 200 MG/20 ML VIAL As Ordered ONE (10:59)
[2020-12-03] MEDS ORDERED: ONDANSETRON 4MG/2ML VIAL IV PRN (11:45)
[2020-12-03] MEDS ORDERED: fentaNYL 100 MCG/2 ML INJECTION (J3010) IV PRN (11:45)
[2020-12-03] MEDS ORDERED: METOCLOPRAMIDE INJ 10MG/2ML VIAL (J2765 PER 1) IV PRN (11:45)
[2020-12-03] MEDS ORDERED: ACETAMINOPHEN TAB 650MG DOSE (2X325MG) PO PRN (11:50)
[2020-12-03 13:18] VITALS: BP 115/62
--- NOTE | 2020-12-03 13:21 | RO ---
OPERATIVE NOTE DATE OF OPERATION: 12/03/2020 PREOPERATIVE DIAGNOSIS: POSTOPERATIVE DIAGNOSIS: PROCEDURE PERFORMED: Dilatation and curettage and diagnostic/operative hysteroscopy. SURGEON: Katie Cherry MD UNDER SHERIFF: None. ANESTHESIA: INDICATION FOR OPERATION: Suzanne is a 59-year-old female who presented to the office for bleeding. She is patient at the [facility] because she is not able to care for herself but she does report that she now has had a few episodes of heavy postmenopausal bleeding to the point that she had to change pads and was soaking pads. Bleeding as of right now has stopped from her most recent episode but it was prolonged and she reports needing a blood transfusion because her bleeding was so heavy. She has history of uterine polyps that were removed in the past but she was counseled on need for tissue diagnosis and she was unable to complete an endometrial biopsy in the office due to her body habitus and discomfort. INFECTION CLASSIFICATION: 2. ESTIMATED BLOOD LOSS: 20 mL. URINE OUTPUT: 100 mL clear yellow urine at the start of the procedure by in and out catheterization. IV FLUIDS: 300 mL of lactated Ringer's. DESCRIPTION OF FINDINGS: Uterus sounded to 6 cm and the cervix was slightly open. On hysteroscopy there was noted to be an elongated polyp coming down from the uterus and questionable mass on the inner right fundal aspect of the uterus. MATERIAL FORWARDED TO THE LAB FOR EXAMINATION: 1. Biopsy of endometrial polyp. 2. Endometrial curettings including endometrial polyp. DESCRIPTION OF PROCEDURE: After obtaining informed consent the patient was taken to the operating room where she underwent general anesthesia with endotracheal tube. She was placed in low lithotomy position, perineum and vagina were prepped and draped in sterile fashion. [place] speculum was inserted and tenaculum used to grasp the cervix from the anterior segment. Cervix was sequentially dilated using Hanks dilators. I then inserted the hysteroscope up to the fundus of the uterus but just inside the cervix it was noted to have an impeding elongated endometrial polyp so I took a biopsy of the polyp at that point and then because I could not get a good view of the cavity I removed the scope and performed D&C to get good tissue and then after that I reinserted the camera and most of the endometrial polyp had been removed with the curettings. There was a questionable mass on the inner right fundal aspect of the uterus and I made sure to scrape that area again with the curet prior to ending the procedure. There was approximately 300 mL of fluid used for the hysteroscopy but a lot of that was unaccounted for on the floor of the OR. At the end of the procedure tenaculum was removed, speculum was removed, nothing was retained in the vagina. The patient was awakened from general anesthesia and transferred to the recovery room in good condition. All counts were correct x2.
== END 2020-12-03 13:34 | disposition home or self-care (01) ==
LOC: M SDC 09:04
PROVIDERS: ATTEND Obstetrics & Gynecology
DX: N95.0 Postmenopausal bleeding (principal); N84.0 Polyp of corpus uteri; I10 Essential (primary) hypertension; E03.9 Hypothyroidism, unspecified; E10.9 Type 1 diabetes mellitus without complications; F41.9 Anxiety disorder, unspecified; F32.9 Major depressive disorder, single episode, unspecified; D64.9 Anemia, unspecified; Z79.4 Long term (current) use of insulin; M79.7 Fibromyalgia; Z88.8 Allergy status to other drugs, medicaments and biological substances; Z91.013 Allergy to seafood; Z79.82 Long term (current) use of aspirin; Z79.899 Other long term (current) drug therapy
CPT/HCPCS: 58558; 88305; J0131; J1100; J1885; J2250; J2405; J3010

== ENCOUNTER → 2020-12-04 | Outpatient (REF) | payer OTHER ==
[~2020-12-04] MED LIST changes: -LIDOCAINE 2% 100MG/5ML SDV (FOR ANES.) As Ordered ONE; -LR 1,000 ML IV ONE; -MIDAZOLAM INJ 2MG/2ML VIAL (J2250 PER 1MG) As Ordered ONE; -ONDANSETRON 4MG/2ML VIAL As Ordered ONE; -dexameTHASONE 4 MG/ML 1ML VIAL (J1100 PER 1MG) As Ordered ONE; -fentaNYL 100 MCG/2 ML INJECTION (J3010) As Ordered ONE; -propofoL 200 MG/20 ML VIAL As Ordered ONE
== END ==
LOC: SKLAB3 15:13
PROVIDERS: ATTEND Internal Medicine
DX: Z20.822 Contact with and (suspected) exposure to COVID-19 (principal)

== ENCOUNTER → 2020-12-18 | Outpatient (RCR) | payer OTHER | LOC: M PT 12-05 13:31 | PROVIDERS: ATTEND Internal Medicine | DX: I89.0 Lymphedema, not elsewhere classified (principal) ==

== ENCOUNTER → 2020-12-20 | Outpatient (REF) | payer OTHER | LOC: SKLAB3 07:00 | PROVIDERS: ATTEND Internal Medicine | DX: Z20.822 Contact with and (suspected) exposure to COVID-19 (principal) ==

== ENCOUNTER → 2020-12-22 | Outpatient (REF) | payer OTHER | LOC: SKLAB3 07:00 | PROVIDERS: ATTEND Internal Medicine | DX: E11.9 Type 2 diabetes mellitus without complications (principal) ==

== ENCOUNTER → 2021-01-02 | Outpatient (REF) | payer OTHER ==
[2021-01-02 09:50] LABS: ALBUMIN 2.8 GM/DL (3.2-5.2); ALT/SGPT 14 U/L (12-78); BILIRUBIN,TOTAL 0.3 MG/DL (0.2-1.0); BLOOD UREA NITROGEN 12 MG/DL (7-18); CALCIUM LEVEL 9.6 MG/DL (8.8-10.2); CARBON DIOXIDE LEVEL 33 MEQ/L (21-32); CHLORIDE LEVEL 102 MEQ/L (98-107); CREATININE FOR GFR 0.78 MG/DL (0.55-1.30); GLOMERULAR FILTRATION RATE > 60.0 (>45); GLUCOSE, FASTING 145 MG/DL (70-100); POTASSIUM SERUM 3.5 MEQ/L (3.5-5.1); SODIUM LEVEL 139 MEQ/L (136-145); TOTAL PROTEIN 7.1 GM/DL (6.4-8.2)
== END ==
LOC: SKLAB3 07:00
PROVIDERS: ATTEND Internal Medicine
DX: E11.9 Type 2 diabetes mellitus without complications (principal); R11.0 Nausea

== ENCOUNTER → 2021-01-07 | Outpatient (REF) | payer OTHER ==
[2021-01-07 10:08] LABS: ALBUMIN 2.6 GM/DL (3.2-5.2); ALT/SGPT 15 U/L (12-78); BILIRUBIN,TOTAL 0.2 MG/DL (0.2-1.0); BLOOD UREA NITROGEN 18 MG/DL (7-18); CALCIUM LEVEL 8.7 MG/DL (8.8-10.2); CARBON DIOXIDE LEVEL 35 MEQ/L (21-32); CHLORIDE LEVEL 101 MEQ/L (98-107); CHOLESTEROL LEVEL 118 MG/DL (<200); CHOLESTEROL RISK RATIO 2.458 (<5); CREATININE FOR GFR 0.81 MG/DL (0.55-1.30); GLOMERULAR FILTRATION RATE > 60.0 (>45); GLUCOSE, FASTING 173 MG/DL (70-100); HDL CHOLESTEROL 48 MG/DL (>40); IRON (FE) 46 UG/DL (50-170); LDL CHOLESTEROL 51 MG/DL (<100); NON-HDL-C 70 MG/DL; PERCENT SATURATION 12.3 % (13.2-45.0); POTASSIUM SERUM 3.8 MEQ/L (3.5-5.1); SODIUM LEVEL 140 MEQ/L (136-145); TOTAL IRON BINDING CAPACITY 373 UG/DL (250-450); TOTAL PROTEIN 6.1 GM/DL (6.4-8.2); TRIGLYCERIDES LEVEL 96 MG/DL (<150)
[2021-01-07 10:12] LABS: HEMOGLOBIN A1c 9.4 %
== END ==
LOC: SKLAB3 11:42
PROVIDERS: ATTEND Internal Medicine
DX: E11.9 Type 2 diabetes mellitus without complications (principal); D64.9 Anemia, unspecified; E78.5 Hyperlipidemia, unspecified

== ENCOUNTER → 2021-01-17 | Outpatient (RCR) | payer OTHER | LOC: M PT 12-19 13:33 | PROVIDERS: ATTEND Internal Medicine | DX: I89.0 Lymphedema, not elsewhere classified (principal) ==

== ENCOUNTER → 2021-01-24 | Outpatient (CLI) | payer MEDICAID ==
--- NOTE | 2021-01-24 15:53 | REP ---
INDICATION: GASTROPHRESIS. COMPARISON: None. TECHNIQUE/RADIOTRACER AND DOSE: 0.91 mCi of Technetium-99m sulfur colloid was ingested in two scrambled eggs and 6 ounces of water and sequential anterior and posterior images are acquired for an 89-minute imaging observation period. Regions of interest are drawn around the stomach to plot gastric emptying. FINDINGS: Expected T1/2 is 90 minutes. Fifty-five% emptying is observed in this patient during the 89-minute imaging observation period, for a calculated T1/2 in this patient of 90 minutes. IMPRESSION: Normal gastric emptying. <Electronically signed by Diogenes Mckeon > 01/24/21 [id number]
== END ==
LOC: M RAD 12:32
PROVIDERS: ATTEND Nurse Practitioner Family
DX: K31.84 Gastroparesis (principal)
CPT/HCPCS: 78264; A9541

== ENCOUNTER → 2021-01-27 | Outpatient (REF) | payer MEDICAID | LOC: SKLAB3 09:11 | PROVIDERS: ATTEND Internal Medicine | DX: Z20.822 Contact with and (suspected) exposure to COVID-19 (principal) ==

== ENCOUNTER 2021-02-06 17:29 | Inpatient (IN) | payer MEDICAID, OTHER ==
[~2021-02-06] VITALS: Ht 154.9 cm; Wt 125.1 kg
[~2021-02-06 17:29] MED LIST changes: +GABA-283 PO; -GABA-845 PO; +LIDO1CRE42 TOP; -LIDO2.5C15 TOP
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
--- NOTE | 2021-02-06 18:49 | REP ---
INDICATION: trauma COMPARISON: 07/11/2019 TECHNIQUE: Four views FINDINGS: There is no significant change compared to the prior exam. There is tricompartmental marginal osteophytosis and tricompartmental narrowing. No acute fracture has developed. IMPRESSION: No change from the prior exam. <Electronically signed by Simeon Haney > 02/06/21 [id number]
[2021-02-06 19:22] LABS: BASO % 0.5 % (0.0-1.0); EOS # 0.3 10^3/uL (0.0-0.5); EOS % 3.6 % (0.0-3.0); HEMATOCRIT 37.1 % (36.0-47.0); HEMOGLOBIN 11.6 g/dl (12.0-15.5); LYMPH # 1.5 10^3/uL (1.5-5.0); LYMPH % 20.8 % (24.0-44.0); MEAN CORPUSCULAR HEMOGLOBIN 26.9 pg (27.0-33.0); MEAN CORPUSCULAR HGB CONC 31.3 g/dl (32.0-36.5); MEAN CORPUSCULAR VOLUME 86.1 fl (80.0-96.0); NEUTROPHILS # 4.5 10^3/uL (1.5-8.5); NEUTROPHILS % 61.2 % (36.0-66.0); PLATELET COUNT, AUTOMATED 261 10^3/uL (150-450); RED BLOOD COUNT 4.31 10^6/uL (4.00-5.40); WHITE BLOOD COUNT 7.4 10^3/uL (4.0-10.0)
[2021-02-06] MEDS ORDERED: MORPHINE 2 MG/ML 1ML VIAL (J2270) IV ONE (19:30)
[2021-02-06 19:35] LABS: INR 0.98; PARTIAL THROMBOPLASTIN TIME 25.1 SECONDS (24.2-38.5); PROTHROMBIN TIME 13.2 SECONDS (12.5-14.3)
[2021-02-06 19:53] LABS: BLOOD UREA NITROGEN 16 MG/DL (7-18); CALCIUM LEVEL 8.8 MG/DL (8.8-10.2); CARBON DIOXIDE LEVEL 33 MEQ/L (21-32); CHLORIDE LEVEL 103 MEQ/L (98-107); CK-MB VALUE MASS < 1.0 NG/ML (<3.6); CPK CREATINE PHOSPHOKINASE 25 U/L (26-192); CREATININE FOR GFR 0.89 MG/DL (0.55-1.30); GLOMERULAR FILTRATION RATE > 60.0 (>45); GLUCOSE, FASTING 163 MG/DL (70-100); POTASSIUM SERUM 3.7 MEQ/L (3.5-5.1); SODIUM LEVEL 141 MEQ/L (136-145); TROPONIN I < 0.02 NG/ML (< 0.10); VALPROIC ACID (DEPAKOTE) 50.3 UG/ML (50.0-100.0)
[2021-02-06] MEDS ORDERED: ACET-683 PO (19:57)
[2021-02-06] MEDS ORDERED: NYST1POW9 TOP (19:57)
[2021-02-06] MEDS ORDERED: INSUH10VL SC (19:57)
[2021-02-06] MEDS ORDERED: LANTINJ4 SC (19:57)
[2021-02-06] MEDS ORDERED: VALP250S PO (19:57)
[2021-02-06] MEDS ORDERED: MOM30SS PO (19:57)
[2021-02-06] MEDS ORDERED: AUGM875T28 PO (19:57)
[2021-02-06] MEDS ORDERED: GLUCAGON INJ 1MG VIAL SC PRN (20:35)
[2021-02-06] MEDS ORDERED: MAALOX 30 ML SUSP *UDC PO PRN (20:35)
[2021-02-06] MEDS ORDERED: GLUCOSE 4GM CHEW TABLET PO PRN (20:35)
[2021-02-06] MEDS ORDERED: LABETALOL 100MG/20ML VIAL IV PRN (20:35)
[2021-02-06] MEDS ORDERED: DEXTROSE 50% 50 ML SYRINGE IV PRN (20:35)
[2021-02-06] MEDS ORDERED: MOM 30ML SUSPENSION UDC PO PRN (20:35)
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
[2021-02-06] MEDS ORDERED: AUGMENTIN 875 MG TAB PO SCH (21:00)
[2021-02-06] MEDS: LEVEMIR (INSULIN DETEMIR) 1 UNITS/0.01ML SC SCH (21:00)
[2021-02-06] MEDS: HumaLOG INSULIN (NovoLOG) PER UNIT SC SCH (21:00)
--- NOTE | 2021-02-06 23:07 | REPVR ---
PROCEDURE INFORMATION: Exam: MR Head Without Contrast Exam date and time: 02/06/2021 8:26 PM Age: 60 years old Clinical indication: Weakness, extremity; Bilateral; Additional info: CVA TECHNIQUE: Imaging protocol: MR of the head without contrast. COMPARISON: CT Head without contrast 02/06/2021 6:11 PM FINDINGS: Limitations: The exam is degraded by patient motion artifact. Brain: There is mild cerebral volume loss. Changes of chronic white matter microvascular disease are present. No signs of a recent infarction or hemorrhage. Cerebral ventricles: There is ex vacuo ventricular enlargement without evidence of obstructive hydrocephalus. Bones/joints: Unremarkable. Paranasal sinuses: Normal as visualized. No acute sinusitis. Mastoid air cells: Normal as visualized. No mastoid effusion. oft tissues: Unremarkable. IMPRESSION: 1. Motion limited exam. 2. Mild cerebral volume loss and chronic white matter changes. No acute intracranial abnormality. Electronically signed by: Alonso Armstrong On 02/06/2021 23:07:41 PM
--- NOTE | 2021-02-06 23:12 | REPVR ---
PROCEDURE INFORMATION: Exam: MRA Head Without Contrast; Arteriography Exam date and time: 02/06/2021 8:26 PM Age: 60 years old Clinical indication: Weakness; Additional info: CVA TECHNIQUE: Imaging protocol: Magnetic resonance angiography head without contrast. Exam focused on the arteries. COMPARISON: CT Head without contrast 02/06/2021 6:11 PM FINDINGS: ANTERIOR CIRCULATION: Right internal carotid artery: Intracranial segment is patent with no significant stenosis. No aneurysm. Right middle cerebral artery: No occlusion or significant stenosis. No aneurysm. Right anterior cerebral artery: No occlusion or significant stenosis. No aneurysm. Left internal carotid artery: Intracranial segment is patent with no significant stenosis. No aneurysm. Left middle cerebral artery: No occlusion or significant stenosis. No aneurysm. Left anterior cerebral artery: No occlusion or significant stenosis. No aneurysm. POSTERIOR CIRCULATION: Right vertebral artery: No occlusion or significant stenosis. No aneurysm. Left vertebral artery: No occlusion or significant stenosis. No aneurysm. Basilar artery: No occlusion or significant stenosis. No aneurysm. Right posterior cerebral artery: No occlusion or significant stenosis. No aneurysm. Left posterior cerebral artery: No occlusion or significant stenosis. No aneurysm. IMPRESSION: No stenosis or occlusion. Electronically signed by: Alonso Armstrong On 02/06/2021 23:12:12 PM
[2021-02-06 23:58] VITALS: BP 123/64
[2021-02-07] MEDS: traZODone 50 MG TAB PO SCH ×2 (00:43→20:56)
[2021-02-07] MEDS: DULoxetine 30 MG CAP (CYMBALTA) PO SCH ×3 (00:43→20:57)
[2021-02-07] MEDS: busPIRone 5 MG TAB PO SCH ×3 (00:43→20:56)
[2021-02-07] MEDS: POTASSIUM CHLORIDE 10 MEQ SR TABLET PO SCH ×2 (00:44→20:57)
[2021-02-07] MEDS: LOSARTAN 50MG TABLET PO SCH ×2 (00:49→20:56)
[2021-02-07] MEDS: VALPROIC ACID 250MG CAP PO SCH ×3 (00:50→20:56)
[2021-02-07] MEDS: GABAPENTIN 400MG CAP PO SCH ×4 (00:50→20:55)
[2021-02-07] MEDS: NYSTATIN 100,000 UNITS/GM TOPICAL PWD 15 GM TOP SCH ×3 (00:50→20:59)
[2021-02-07 06:00] VITALS: BP 107/61
[2021-02-07] MEDS: LEVOTHYROXINE 100MCG TABLET (0.1MG) PO SCH (06:17)
[2021-02-07] MEDS: ACETAMINOPHEN TAB 650MG DOSE (2X325MG) PO PRN ×3 (06:18→20:55)
[2021-02-07 06:50] LABS: HEMATOCRIT 34.1 % (36.0-47.0); HEMOGLOBIN 10.5 g/dl (12.0-15.5); MEAN CORPUSCULAR HGB CONC 30.8 g/dl (32.0-36.5); MEAN CORPUSCULAR VOLUME 87.7 fl (80.0-96.0); PLATELET COUNT, AUTOMATED 229 10^3/uL (150-450); RED BLOOD COUNT 3.89 10^6/uL (4.00-5.40); WHITE BLOOD COUNT 6.7 10^3/uL (4.0-10.0)
[2021-02-07 07:13] LABS: BLOOD UREA NITROGEN 14 MG/DL (7-18); CALCIUM LEVEL 8.1 MG/DL (8.8-10.2); CARBON DIOXIDE LEVEL 34 MEQ/L (21-32); CHLORIDE LEVEL 103 MEQ/L (98-107); CREATININE FOR GFR 0.72 MG/DL (0.55-1.30); GLOMERULAR FILTRATION RATE > 60.0 (>45); GLUCOSE, FASTING 136 MG/DL (70-100); POTASSIUM SERUM 3.9 MEQ/L (3.5-5.1); SODIUM LEVEL 140 MEQ/L (136-145)
--- NOTE | 2021-02-07 07:59 | REP ---
INDICATION: leg weakness resolved. Repeat dictation. Preliminary report is provided at the time of the exam by stanley PATHAK. COMPARISON: Comparison CT study of the brain is from 19 September 2020.. TECHNIQUE: Helical scanning is acquired. 5 mm axial images were reformatted. Coronal MPR images were generated. FINDINGS: Bone window settings demonstrate intact bony calvarium. The it visualized paranasal sinuses are clear. Digital preliminary prepper view is are unremarkable. Patient is edentulous. On soft tissue window settings there is mild generalized volume loss and concordant ventricular enlargement. There is no evidence of intracranial hemorrhage. No mass, extra-axial fluid collection, infarct, or midline shift is seen. IMPRESSION: Mild generalized atrophy. No acute intracranial abnormality.. <Electronically signed by Diogenes Mckeon > 02/07/21 [id number]
--- NOTE | 2021-02-07 08:02 | REP ---
INDICATION: trauma. Repeat dictation. Preliminary report is provided at the time of the exam by stanley PATHAK. COMPARISON: Comparison CT study of the cervical spine is from February 22, 2016.. TECHNIQUE: Helical scanning is acquired and overlapping 2 mm high resolution axial images were generated and reviewed at bone and soft tissue window settings. Coronal and sagittal multiplanar re-formations images are generated. FINDINGS: There is no evidence of cervical spine element fracture. No skull base fracture is seen. Cervical vertebral body heights are preserved. Alignment is normal. Facet joints are normally aligned bilaterally at each cervical level on multiplanar re-formations images. There is no evidence of intraspinal or paraspinal hematoma. No extra vertebral abnormality is seen. There is fairly advanced degenerative spondylosis change with degenerative disc disease throughout the cervical spine anterior osteophyte formation particularly to the right of midline and osteoarthritic facet disease. These findings are essentially unchanged. There is a degenerative 2.6 mm anterior subluxation of C3 on C4 due to degenerative disc and osteoarthritic facet disease. This previously measured 2.1 mm. No prevertebral or paravertebral soft tissue swelling is seen. No significant extra-spinal abnormality. IMPRESSION: Degenerative spondylosis changes. No traumatic abnormality.. <Electronically signed by Diogenes Mckeon > 02/07/21 [id number]
[2021-02-07] MEDS: ENOXAPARIN 40MG/0.4ML SYRINGE (J1650 PER 10MG) SC SCH (08:41)
[2021-02-07] MEDS: HumaLOG INSULIN (NovoLOG) PER UNIT SC SCH ×4 (08:41→20:58)
[2021-02-07] MEDS: FERROUS GLUCONATE 324 MG TAB PO SCH (08:43)
[2021-02-07] MEDS: FUROSEMIDE 40 MG TAB PO SCH (08:43)
[2021-02-07] MEDS: AUGMENTIN 875 MG TAB PO SCH ×2 (08:49→20:55)
[2021-02-07 09:34] LABS: HEMOGLOBIN A1c 8.9 %
[2021-02-07 14:00] VITALS: BP 126/70
--- NOTE | 2021-02-07 15:15 | IPNPDOC ---
Text Note Date of Service The patient was seen on 02/07/21. NOTE Subjective: She was seen and examined this morning at bedside. Patient tells me that her left leg feels swollen and painful, she says her legs are always swollen and she thinks her leg swelling is part of the reason why she fell. Otherwise she tells me she has no chest pain or palpitations no fevers or chills. Otherwise there is no acute overnight events reported to me. Objective: Constitutional: Awake and alert, appears older than stated age and chronically ill appearing ENT: Sclera are clear. Mucosa is moist. Respiratory: Lungs diminished breath sounds bilaterally. No respiratory distress. Cardiovascular: Regular rate and rhythm Gastrointestinal: Abdomen is soft, non distended, non tender, BS present. Obese abdomen Musculoskeletal: Chronic appearing bilateral lower extremity edema left slightly greater than right with tenderness on palpation of the left lower extremity Neurologic: No focal neurological deficit. Mental Status: A&O x3, normal affect Assessment/plan: 60F w IDDM2, essential HTN, Hypothyroidism, Seizure Disorder, OA, Unsteady gait requiring walker, Fibromyalgia, anxiety / depression, & obesity who presented for evaluation of transient LLE weakness resulting in a fall. # LLE pain and swelling: Fu duplex US lower extremity to rule out DVT. On exam not much difference in both legs left leg maybe slightly more swollen but much more tender on palpation, they both appear chronically swollen. # Mechanical Fall: Could be multifactorial from deconditioning chronic illness, medications, leg pain or swelling. PT consulted for home safety evaluation to determine patient is safe to go home versus requiring rehabilitation. # N Anemia: Appears stable follow-up with PCP continue oral iron supplementation # DM: ISS. Frequent Accu-Cheks. Hypoglycemic precautions. reduce long acting insulin from 82 units to 40 units QHS # Hypertension: Continue home meds Furosemide, Losartan. Monitor and titrate # Seizure Disorder: Valproic Acid # Anxiety/ depression: Duloxetine Buspirone # Venous insufficiency w lymphedema: Furosemide / elevate legs # Class 3 obesity: BMI 53, complicates care. # DVT prophylaxis: Lovenox A Yousef Hospitalist VS,Fishbone, I+O VS, Fishbone, I+O Laboratory Tests 02/06/21 18:33 02/07/21 06:32 Vital Signs Date Time Temp Pulse Resp B/P (MAP) Pulse Ox O2 Delivery O2 Flow Rate FiO2 02/07/21 14:00 98.2 83 18 126/70 (88) 95 Room Air I&O- Last 24 Hours up to 6 AM 02/07/21 06:00 Intake Total 720 ml Output Total 0 ml Balance 720 ml ARCELIA JUNG MD February 07, 2021 15:15
--- NOTE | 2021-02-07 16:36 | REP ---
INDICATION: Left lower extremity swelling and pain. COMPARISON: None. TECHNIQUE: Multiple ultrasonographic images of the deep venous structures of the left thigh were obtained from the common femoral vein to the popliteal vein along with Doppler interrogation and color flow Doppler images. FINDINGS: There is no abnormal echogenic material seen within any of the visualized deep venous structures that would suggest acute thrombosis. Coaptation is unremarkable throughout. Doppler interrogation shows an expected response to respiratory variability and augmentation. The color flow images show what appears to be a normal vascular pattern throughout. IMPRESSION: There is no ultrasonographic evidence of deep venous thrombosis involving any of the visualized deep venous structures of the left thigh, as described above. <Electronically signed by Simeon Haney > 02/07/21 [id number]
--- NOTE | 2021-02-07 20:24 | ECGEPIP ---
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
[2021-02-07] MEDS: LEVEMIR (INSULIN DETEMIR) 1 UNITS/0.01ML SC SCH (20:57)
[2021-02-07 22:00] VITALS: BP 121/67
[2021-02-08 06:00] VITALS: BP 122/65
[2021-02-08] MEDS: LEVOTHYROXINE 100MCG TABLET (0.1MG) PO SCH (06:20)
[2021-02-08] MEDS: HumaLOG INSULIN (NovoLOG) PER UNIT SC SCH ×4 (08:06→22:09)
[2021-02-08] MEDS: ENOXAPARIN 40MG/0.4ML SYRINGE (J1650 PER 10MG) SC SCH (08:07)
[2021-02-08] MEDS: AUGMENTIN 875 MG TAB PO SCH ×2 (08:08→22:04)
[2021-02-08] MEDS: busPIRone 5 MG TAB PO SCH ×2 (08:09→22:02)
[2021-02-08] MEDS: DULoxetine 30 MG CAP (CYMBALTA) PO SCH ×2 (08:09→22:04)
[2021-02-08] MEDS: FUROSEMIDE 40 MG TAB PO SCH (08:09)
[2021-02-08] MEDS: FERROUS GLUCONATE 324 MG TAB PO SCH (08:09)
[2021-02-08] MEDS: GABAPENTIN 400MG CAP PO SCH ×3 (08:10→22:04)
[2021-02-08] MEDS: VALPROIC ACID 250MG CAP PO SCH ×2 (08:10→22:05)
[2021-02-08] MEDS: NYSTATIN 100,000 UNITS/GM TOPICAL PWD 15 GM TOP SCH ×2 (08:11→22:09)
[2021-02-08] MEDS: ACETAMINOPHEN TAB 650MG DOSE (2X325MG) PO PRN ×2 (12:55→22:03)
--- NOTE | 2021-02-08 12:57 | IPNPDOC ---
Text Note Date of Service The patient was seen on 02/08/21. NOTE Subjective: -Reports left leg pain, a bit better now. -No report of chest pain, palpitations, SOB, fevers or chills. Objective: Constitutional: Awake and alert, appears older than stated age and chronically ill appearing ENT: Sclera are clear. Mucosa is moist. Respiratory: Lungs diminished breath sounds bilaterally. No respiratory distress. Cardiovascular: Regular rate and rhythm Gastrointestinal: Abdomen is soft, non distended, non tender, BS present. Obese abdomen Extremities: Chronic appearing bilateral lower extremity edema left slightly greater than right with tenderness on palpation of the left lower extremity Neurologic: No focal neurological deficit. Mental Status: A&O x3, normal affect Labs: reviewed Assessment: 60F w IDDM2, essential HTN, Hypothyroidism, Seizure Disorder, OA, Unsteady gait requiring walker, Fibromyalgia, anxiety / depression, & obesity who presented f or evaluation of LLE weakness resulting in a fall with LLE pain without evidence of DVT or fracture. # LLE pain and swelling: -duplex US of lower extremity was negative for DVT. -On exam did not see much difference in legs with left leg slightly more swollen on bilateral edema with tenderness to palpation. # Mechanical Fall: Could be multifactorial from deconditioning chronic illness, medications, leg pain or swelling. -PT consulted for home safety evaluation to determine patient is safe to go home versus requiring rehabilitation _-> recommending rehabilitation # Chronic Anemia: Appears stable follow-up with PCP continue oral iron supplementation # DM: ISS. Frequent Accu-Cheks. Hypoglycemic precautions. Continue long acting insulin at 40 units QHS # Hypertension: Continue home meds Furosemide, Losartan. Monitor and titrate # Seizure Disorder: Valproic Acid # Anxiety/ depression: Duloxetine Buspirone # Venous insufficiency w lymphedema: Furosemide / elevate legs # Class 3 obesity: BMI 53, complicates care. # DVT prophylaxis: Lovenox VS,Fishbone, I+O VS, Fishbone, I+O Vital Signs Date Time Temp Pulse Resp B/P (MAP) Pulse Ox O2 Delivery O2 Flow Rate FiO2 02/08/21 06:00 97.6 85 18 122/65 (84) 94 Room Air I&O- Last 24 Hours up to 6 AM 02/08/21 06:00 Intake Total 930 ml Output Total 1300 ml Balance -370 ml CLEMENTE CUMMINGS V. MD February 08, 2021 09:49
[2021-02-08 14:00] VITALS: BP 107/61
[2021-02-08 22:00] VITALS: BP 149/76
[2021-02-08] MEDS: traZODone 50 MG TAB PO SCH (22:04)
[2021-02-08] MEDS: POTASSIUM CHLORIDE 10 MEQ SR TABLET PO SCH (22:04)
[2021-02-08] MEDS: LEVEMIR (INSULIN DETEMIR) 1 UNITS/0.01ML SC SCH (22:05)
[2021-02-08] MEDS: LOSARTAN 50MG TABLET PO SCH (22:08)
[2021-02-09] MEDS: LEVOTHYROXINE 100MCG TABLET (0.1MG) PO SCH (05:35)
[2021-02-09 05:39] LABS: HEMATOCRIT 34.2 % (36.0-47.0); HEMOGLOBIN 10.5 g/dl (12.0-15.5); MEAN CORPUSCULAR HEMOGLOBIN 26.5 pg (27.0-33.0); MEAN CORPUSCULAR HGB CONC 30.7 g/dl (32.0-36.5); MEAN CORPUSCULAR VOLUME 86.4 fl (80.0-96.0); PLATELET COUNT, AUTOMATED 231 10^3/uL (150-450); RED BLOOD COUNT 3.96 10^6/uL (4.00-5.40); WHITE BLOOD COUNT 6.5 10^3/uL (4.0-10.0)
[2021-02-09 06:00] VITALS: BP 145/76
[2021-02-09 06:12] LABS: BLOOD UREA NITROGEN 17 MG/DL (7-18); CARBON DIOXIDE LEVEL 30 MEQ/L (21-32); CHLORIDE LEVEL 105 MEQ/L (98-107); CREATININE FOR GFR 0.78 MG/DL (0.55-1.30); GLOMERULAR FILTRATION RATE > 60.0 (>45); GLUCOSE, FASTING 210 MG/DL (70-100); POTASSIUM SERUM 4.2 MEQ/L (3.5-5.1); SODIUM LEVEL 138 MEQ/L (136-145)
[2021-02-09] MEDS: AUGMENTIN 875 MG TAB PO SCH ×2 (08:07→21:04)
[2021-02-09] MEDS: VALPROIC ACID 250MG CAP PO SCH ×2 (08:07→21:04)
[2021-02-09] MEDS: busPIRone 5 MG TAB PO SCH ×2 (08:07→21:04)
[2021-02-09] MEDS: GABAPENTIN 400MG CAP PO SCH ×3 (08:07→21:04)
[2021-02-09] MEDS: ENOXAPARIN 40MG/0.4ML SYRINGE (J1650 PER 10MG) SC SCH (08:07)
[2021-02-09] MEDS: DULoxetine 30 MG CAP (CYMBALTA) PO SCH ×2 (08:08→21:05)
[2021-02-09] MEDS: FERROUS GLUCONATE 324 MG TAB PO SCH (08:08)
[2021-02-09] MEDS: HumaLOG INSULIN (NovoLOG) PER UNIT SC SCH ×4 (08:08→21:06)
[2021-02-09] MEDS: NYSTATIN 100,000 UNITS/GM TOPICAL PWD 15 GM TOP SCH ×2 (08:08→21:06)
[2021-02-09] MEDS: FUROSEMIDE 40 MG TAB PO SCH (08:08)
[2021-02-09 14:00] VITALS: BP 144/77
--- NOTE | 2021-02-09 15:23 | IPNPDOC ---
Text Note Date of Service The patient was seen on 02/09/21. NOTE Subjective: -Improving left leg pain. I am encouraging her to get out of bed though because she is not getting out of bed much this weekend at all. -No report of chest pain, palpitations, SOB, fevers or chills. Objective: Constitutional: Awake and alert, appears older than stated age and chronically ill appearing ENT: Sclera are clear. Mucosa is moist. Respiratory: Lungs diminished breath sounds bilaterally. No respiratory distress. Cardiovascular: Regular rate and rhythm Gastrointestinal: Abdomen is soft, non distended, non tender, BS present. Obese abdomen Extremities: Chronic appearing bilateral lower extremity edema, with teds on, LLE pain seems better with palpation than yesterday Neurologic: No focal neurological deficit. Mental Status: A&O x3, normal affect Labs: reviewed, stable Assessment: 60F w IDDM2, essential HTN, Hypothyroidism, Seizure Disorder, OA, Unsteady gait requiring walker, Fibromyalgia, anxiety / depression, & obesity who presented for evaluation of LLE weakness resulting in a fall with LLE pain without evidence of DVT or fracture. # LLE pain and swelling: -duplex US of lower extremity was negative for DVT. -On exam did not see much difference in legs with left leg slightly more swollen on bilateral edema with tenderness to palpation. # Mechanical Fall: Could be multifactorial from deconditioning chronic illness, medications, leg pain or swelling. -PT consulted for home safety evaluation to determine patient is safe to go home versus requiring rehabilitation --> recommending rehabilitation # Chronic Anemia: Appears stable follow-up with PCP continue oral iron supplementation # DM: ISS. Frequent Accu-Cheks. Hypoglycemic precautions. Continue long acting insulin at 40 units QHS # Hypertension: Continue home meds Furosemide, Losartan. Monitor and titrate # Seizure Disorder: Valproic Acid # Anxiety/ depression: Duloxetine Buspirone # Venous insufficiency w lymphedema: Furosemide / elevate legs # Class 3 obesity: BMI 53, complicates care. # DVT prophylaxis: Lovenox Dispo: pending rehab with ongoing PT/OT VS,Fishbone, I+O VS, Fishbone, I+O Laboratory Tests 02/09/21 05:27 Vital Signs Date Time Temp Pulse Resp B/P (MAP) Pulse Ox O2 Delivery O2 Flow Rate FiO2 02/09/21 06:00 98.0 83 18 145/76 (99) 94 Room Air I&O- Last 24 Hours up to 6 AM 02/09/21 06:00 Intake Total 2220 ml Output Total 3600 ml Balance -1380 ml CLEMENTE CUMMINGS MD February 09, 2021 08:34
[2021-02-09] MEDS: ACETAMINOPHEN TAB 650MG DOSE (2X325MG) PO PRN ×2 (15:36→21:11)
[2021-02-09] MEDS: traZODone 50 MG TAB PO SCH (21:04)
[2021-02-09] MEDS: LEVEMIR (INSULIN DETEMIR) 1 UNITS/0.01ML SC SCH (21:05)
[2021-02-09] MEDS: LOSARTAN 50MG TABLET PO SCH (21:05)
[2021-02-09] MEDS: POTASSIUM CHLORIDE 10 MEQ SR TABLET PO SCH (21:05)
[2021-02-09 22:00] VITALS: BP 155/83
[2021-02-10 06:00] VITALS: BP 151/83
[2021-02-10] MEDS: LEVOTHYROXINE 100MCG TABLET (0.1MG) PO SCH (06:08)
[2021-02-10 06:40] LABS: HEMATOCRIT 38.9 % (36.0-47.0); HEMOGLOBIN 12.1 g/dl (12.0-15.5); MEAN CORPUSCULAR HGB CONC 31.1 g/dl (32.0-36.5); MEAN CORPUSCULAR VOLUME 86.8 fl (80.0-96.0); PLATELET COUNT, AUTOMATED 222 10^3/uL (150-450); RED BLOOD COUNT 4.48 10^6/uL (4.00-5.40); WHITE BLOOD COUNT 5.3 10^3/uL (4.0-10.0)
[2021-02-10 07:06] LABS: BLOOD UREA NITROGEN 14 MG/DL (7-18); CALCIUM LEVEL 9.1 MG/DL (8.8-10.2); CARBON DIOXIDE LEVEL 33 MEQ/L (21-32); CHLORIDE LEVEL 97 MEQ/L (98-107); CREATININE FOR GFR 0.83 MG/DL (0.55-1.30); GLOMERULAR FILTRATION RATE > 60.0 (>45); GLUCOSE, FASTING 191 MG/DL (70-100); POTASSIUM SERUM 4.2 MEQ/L (3.5-5.1); SODIUM LEVEL 135 MEQ/L (136-145)
[2021-02-10] MEDS: VALPROIC ACID 250MG CAP PO SCH ×2 (08:08→21:15)
[2021-02-10] MEDS: HumaLOG INSULIN (NovoLOG) PER UNIT SC SCH ×4 (08:08→21:16)
[2021-02-10] MEDS: GABAPENTIN 400MG CAP PO SCH ×3 (08:09→21:13)
[2021-02-10] MEDS: AUGMENTIN 875 MG TAB PO SCH ×2 (08:09→21:13)
[2021-02-10] MEDS: busPIRone 5 MG TAB PO SCH ×2 (08:09→21:15)
[2021-02-10] MEDS: DULoxetine 30 MG CAP (CYMBALTA) PO SCH ×2 (08:09→21:15)
[2021-02-10] MEDS: FUROSEMIDE 40 MG TAB PO SCH (08:09)
[2021-02-10] MEDS: FERROUS GLUCONATE 324 MG TAB PO SCH (08:09)
[2021-02-10] MEDS: ACETAMINOPHEN TAB 650MG DOSE (2X325MG) PO PRN ×2 (08:09→15:43)
[2021-02-10] MEDS: NYSTATIN 100,000 UNITS/GM TOPICAL PWD 15 GM TOP SCH ×2 (08:10→21:17)
[2021-02-10] MEDS: ENOXAPARIN 40MG/0.4ML SYRINGE (J1650 PER 10MG) SC SCH (08:10)
--- NOTE | 2021-02-10 13:15 | IPNPDOC ---
Text Note Date of Service The patient was seen on 02/10/21. NOTE Subjective: -Improving left leg pain. Reports that she actually walked on it today with PT, feels encouraged -No report of chest pain, palpitations, SOB, fevers or chills. Objective: Constitutional: Awake and alert, appears older than stated age and chronically ill appearing ENT: Sclera are clear. Mucosa is moist. Respiratory: Lungs diminished breath sounds bilaterally. No respiratory distress. Cardiovascular: Regular rate and rhythm Gastrointestinal: Abdomen is soft, non distended, non tender, BS present. Obese abdomen Extremities: Chronic appearing bilateral lower extremity edema, with teds on, LLE pain seems better with palpation than yesterday Neurologic: No focal neurological deficit. Mental Status: A&O x3, normal affect Labs: reviewed, stable Assessment: 60F w IDDM2, essential HTN, Hypothyroidism, Seizure Disorder, OA, Unsteady gait requiring walker, Fibromyalgia, anxiety / depression, & obesity who presented for evaluation of LLE weakness resulting in a fall with LLE pain without evidence of DVT or fracture. # LLE pain and swelling: -duplex US of lower extremity was negative for DVT. -On exam did not see much difference in legs with left leg slightly more swollen on bilateral edema with tenderness to palpation. # Mechanical Fall: Could be multifactorial from deconditioning chronic illness, medications, leg pain or swelling. -PT consulted for home safety evaluation to determine patient is safe to go home versus requiring rehabilitation --> recommending rehabilitation # Chronic Anemia: Appears stable follow-up with PCP continue oral iron supplementation # DM: ISS. Frequent Accu-Cheks. Hypoglycemic precautions. Continue long acting insulin at 40 units QHS # Hypertension: Continue home meds Furosemide, Losartan. Monitor and titrate # Seizure Disorder: Valproic Acid # Anxiety/ depression: Duloxetine Buspirone # Venous insufficiency w lymphedema: Furosemide / elevate legs # Class 3 obesity: BMI 53, complicates care. # DVT prophylaxis: Lovenox Dispo: Has ongoing PT/OT, pending ARU eval vs. STR VS,Fishbone, I+O VS, Fishbone, I+O Laboratory Tests 02/10/21 06:12 Vital Signs Date Time Temp Pulse Resp B/P (MAP) Pulse Ox O2 Delivery O2 Flow Rate FiO2 02/10/21 06:00 98.0 90 20 151/83 (105) 94 Room Air I&O- Last 24 Hours up to 6 AM 02/10/21 06:00 Intake Total 1500 ml Output Total 3800 ml Balance -2300 ml CLEMENTE CUMMINGS MD February 10, 2021 13:15
[2021-02-10 14:00] VITALS: BP 125/69
[2021-02-10] MEDS: POTASSIUM CHLORIDE 10 MEQ SR TABLET PO SCH (21:13)
[2021-02-10 21:14] VITALS: BP 119/70
[2021-02-10] MEDS: LOSARTAN 50MG TABLET PO SCH (21:14)
[2021-02-10] MEDS: traZODone 50 MG TAB PO SCH (21:15)
[2021-02-10] MEDS: LEVEMIR (INSULIN DETEMIR) 1 UNITS/0.01ML SC SCH (21:16)
[2021-02-10 22:00] VITALS: BP 119/70
[2021-02-11] MEDS: LEVOTHYROXINE 100MCG TABLET (0.1MG) PO SCH (05:46)
[2021-02-11 06:00] VITALS: BP 117/71
[2021-02-11 06:24] LABS: HEMATOCRIT 36.7 % (36.0-47.0); HEMOGLOBIN 11.6 g/dl (12.0-15.5); MEAN CORPUSCULAR HEMOGLOBIN 27.2 pg (27.0-33.0); MEAN CORPUSCULAR HGB CONC 31.6 g/dl (32.0-36.5); MEAN CORPUSCULAR VOLUME 85.9 fl (80.0-96.0); PLATELET COUNT, AUTOMATED 213 10^3/uL (150-450); RED BLOOD COUNT 4.27 10^6/uL (4.00-5.40); WHITE BLOOD COUNT 5.8 10^3/uL (4.0-10.0)
[2021-02-11 06:48] LABS: BLOOD UREA NITROGEN 14 MG/DL (7-18); CALCIUM LEVEL 8.9 MG/DL (8.8-10.2); CARBON DIOXIDE LEVEL 31 MEQ/L (21-32); CHLORIDE LEVEL 101 MEQ/L (98-107); CREATININE FOR GFR 0.81 MG/DL (0.55-1.30); GLOMERULAR FILTRATION RATE > 60.0 (>45); GLUCOSE, FASTING 206 MG/DL (70-100); POTASSIUM SERUM 3.9 MEQ/L (3.5-5.1); SODIUM LEVEL 138 MEQ/L (136-145)
[2021-02-11] MEDS: busPIRone 5 MG TAB PO SCH (09:40)
[2021-02-11] MEDS: FERROUS GLUCONATE 324 MG TAB PO SCH (09:40)
[2021-02-11] MEDS: DULoxetine 30 MG CAP (CYMBALTA) PO SCH (09:40)
[2021-02-11] MEDS: VALPROIC ACID 250MG CAP PO SCH (09:40)
[2021-02-11] MEDS: FUROSEMIDE 40 MG TAB PO SCH (09:41)
[2021-02-11] MEDS: ENOXAPARIN 40MG/0.4ML SYRINGE (J1650 PER 10MG) SC SCH (09:41)
[2021-02-11] MEDS: HumaLOG INSULIN (NovoLOG) PER UNIT SC SCH (09:41)
[2021-02-11] MEDS: GABAPENTIN 400MG CAP PO SCH (09:41)
[2021-02-11] MEDS: AUGMENTIN 875 MG TAB PO SCH (09:41)
[2021-02-11] MEDS: NYSTATIN 100,000 UNITS/GM TOPICAL PWD 15 GM TOP SCH (09:42)
--- NOTE | 2021-02-11 10:01 | DS.PDOC ---
Discharge Summary General Date of Admission February 06, 2021 at 20:35 Date of Discharge 02/11/2021 Attending Physician: CLEEMNTE CUMMINGS MD Discharge Summary PROCEDURES PERFORMED DURING STAY: None ADMITTING DIAGNOSES: Weakness DISCHARGE DIAGNOSES: L leg pain, likely 2/2 her osteoarthritis Mechanical fall Physical deconditioning Unstable gait IDDM2 w neuropathy essential HTN Hypothyroidism Seizure Disorder OA History of Unsteady gait/ frequent falls/ uses walker Fibromyalgia Venous insufficiency w lymphedema anxiety depression Class 3 obesity COMPLICATIONS/CHIEF COMPLAINT: Transient Weakness Of Left Leg. HISTORY OF PRESENT ILLNESS: 60 yr old W who lives in assisted living who was brought into the ED after she reported more than usual LLE pain with weakness and feeling like it was heavy and she could not ambulate per her baseline, despite having her walker with her and had a fall backwards. She denies hitting her head or LOC but hurt her knees and shoulder. She denied having prodromal v/d, dizziness, sensation of the ground moving beneath her, ringing in the ears, chest pain. HOSPITAL COURSE: She was admitted for observation and a lower extremity venous doppler scan was negative for DVT, XR was negative for acute fracture, while CT head showed no fractures, bleeding or masses. She worked with PT and was deemed appropriate for subacute rehabilitation. DISCHARGE MEDICATIONS: Please see below. ALLERGIES: Please see below. PHYSICAL EXAMINATION ON DISCHARGE: VITAL SIGNS: Please see below. Constitutional: Awake and alert, appears older than stated age and chronically ill appearing ENT: Sclera are clear. Mucosa is moist. Respiratory: Lungs diminished breath sounds bilaterally. No respiratory distress. Cardiovascular: Regular rate and rhythm Gastrointestinal: Abdomen is soft, non distended, non tender, BS present. Obese abdomen Extremities: Chronic appearing bilateral lower extremity edema, with teds on Neurologic: No focal neurological deficit. Mental Status: A&O x3, normal affect LABORATORY DATA: Please see below. IMAGING: CT head: without acute bleeding, fractures to skull, masses or evidence of acute infarct CT cervical spine: No acute fractures XRay pelvis/hip IMPRESSION: Chronic changes and technique as described above. Xray knee left IMPRESSION: No change from the prior exam. Xray shoulder IMPRESSION: No change from the prior exam. AC joint DJD status quo. MRI brain IMPRESSION: 1. Motion limited exam. 2. Mild cerebral volume loss and chronic white matter changes. No acute intracranial abnormality. MRA brain IMPRESSION: No stenosis or occlusion. PROGNOSIS: Good ACTIVITY: As tolerated. DIET: Consistent carb DISCHARGE PLAN: STR for rehab DISPOSITION: STR DISCHARGE INSTRUCTIONS: STR for rehab ITEMS TO FOLLOWUP ON ON OUTPATIENT: Deconditioning Osteoarthritis and mobility challenges with PCP, and likely referral to orthopedics DISCHARGE CONDITION: Stable TIME SPENT ON DISCHARGE: 32 minutes. Vital Signs/I&Os Vital Signs Date Time Temp Pulse Resp B/P (MAP) Pulse Ox O2 Delivery O2 Flow Rate FiO2 02/10/21 06:00 98.0 90 20 151/83 (105) 94 Room Air I&O- Last 24 Hours up to 6 AM 02/10/21 06:00 Intake Total 1500 ml Output Total 3800 ml Balance -2300 ml Laboratory Data Labs 24H Laboratory Tests 2 02/09/21 11:43: Bedside Glucose (Misc Panel) 282H 02/09/21 16:27: Bedside Glucose (Misc Panel) 265H 02/09/21 20:24: Bedside Glucose (Misc Panel) 288H 02/10/21 06:12: Nucleated Red Blood Cells % (auto) 0.0, Anion Gap 5L, Glomerular Filtration Rate > 60.0, Calcium Level 9.1 CBC/BMP Laboratory Tests 02/10/21 06:12 FSBS Laboratory Tests Test 02/09/21 11:43 02/09/21 16:27 02/09/21 20:24 Range/Units Bedside Glucose (Misc Panel) 282 265 288 80-115 MG/DL Microbiology Microbiology 02/06/21 Respiratory Virus Panel (PCR) (JEFFERY) - Final, Complete Discharge Medications Scheduled Acetaminophen (Acetaminophen) 500 Mg Tablet, 1,000 MG PO TID, (Reported) Amoxicillin/Potassium Clav (Augmentin 875-125 Tablet) 1 Each Tablet, 1 TAB PO BID, (Reported) STARTED 02/05/21 FOR 11 DAYS Atorvastatin Calcium (Atorvastatin Calcium) 40 Mg Tablet, 40 MG PO QHS, (Reported) Buspirone HCl (Buspirone HCl) 15 Mg Tablet, 15 MG PO BID, (Reported) Duloxetine Hcl (Duloxetine HCl) 60 Mg Capsule.dr, 60 MG PO BID, (Reported) Ferrous Gluconate (Ferrous Gluconate) 324 Mg Tablet, 324 MG PO DAILY, (Reported) Furosemide (Furosemide) 40 Mg Tablet, 40 MG PO DAILY, (Reported) Gabapentin (Gabapentin) 400 Mg Capsule, 400 MG PO TID, (Reported) Hydroxyzine HCl (Hydroxyzine HCl) 50 Mg Tablet, 50 MG PO QHS, (Reported) Insulin Glargine,Hum.rec.anlog (Lantus Solostar) 100 Unit/1 Ml Insuln.pen, 82 UNITS SC QHS, (Reported) Insulin Human Lispro (Novolog) 100 Unit/1 Ml Vial, 8 UNITS SC AC, (Reported) Levothyroxine Sodium (Synthroid) 200 Mcg Tablet, 200 MCG PO QAM, (Reported) Losartan Potassium (Losartan Potassium) 50 Mg Tablet, 50 MG PO QHS, (Reported) Nystatin (Nystatin Powder) 15 Gm Powder, 1 DOSE TOP BID, (Reported) APPLY UNDER RIGHT BREAST Omeprazole (Omeprazole) 40 Mg Capsule.dr, 40 MG PO DAILY, (Reported) Potassium Chloride (Potassium Chloride) 10 Meq Tablet.er, 10 MEQ PO QHS, (Reported) Trazodone HCl (Trazodone HCl) 150 Mg Tablet, 150 MG PO QHS, (Reported) Valproic Acid (As Sodium Salt) (Valproic Acid) 250 Mg/5 Ml Solution, 500 MG PO BID, (Reported) Scheduled PRN Lidocaine/Prilocaine (Lidocaine-Prilocaine Cream) 2.5%/2.5% Cream..g., 1 APLCT TOP QID PRN for PAIN, (Reported) APPLY TO LEFT KNEE Milk Of Magnesia (Milk of Magnesia) 2,400 Mg/10 Ml Oral.susp, 10 ML PO DAILY PRN for CONSTIPATION, (Reported) Allergies Coded Allergies: shellfish derived (Verified Allergy, Severe, ANAPHYLAXIS, 12/03/20) atorvastatin (Verified Adverse Reaction, Intermediate, ELEVATED LIVER ENZYMES, 12/03/20) quetiapine (Verified Adverse Reaction, Intermediate, SEIZURES, 12/03/20) Hydrolyzed [place] Oil (Verified Adverse Reaction, Mild, DIARRHEA, 12/03/20) ibuprofen (Verified Adverse Reaction, Mild, UPSET STOMACH, 12/03/20) metformin (Verified Adverse Reaction, Mild, DIARRHEA, 12/03/20) CLEMENTE CUMMINGS MD February 10, 2021 08:43
== END 2021-02-11 12:45 | DRG 351 ==
LOC: M ED 17:29 → EDBD 17:29 → M ED INP 20:35 → INTOOBSV 20:35 → ENRESERV 21:54 → M MSPAV 23:58 → OBSVTOIN 02-10 13:13
PROVIDERS: ADMIT Internal Medicine; ATTEND Internal Medicine
DX: M16.12 Unilateral primary osteoarthritis, left hip (principal); E11.40 Type 2 diabetes mellitus with diabetic neuropathy, unspecified; F41.9 Anxiety disorder, unspecified; F32.9 Major depressive disorder, single episode, unspecified; E03.9 Hypothyroidism, unspecified; G40.909 Epilepsy, unspecified, not intractable, without status epilepticus; I10 Essential (primary) hypertension; R29.6 Repeated falls; E66.9 Obesity, unspecified; R26.89 Other abnormalities of gait and mobility; I87.8 Other specified disorders of veins; I89.0 Lymphedema, not elsewhere classified; Z79.899 Other long term (current) drug therapy; Z91.013 Allergy to seafood; Z88.6 Allergy status to analgesic agent; Z88.8 Allergy status to other drugs, medicaments and biological substances; M79.7 Fibromyalgia; D64.9 Anemia, unspecified; Z79.4 Long term (current) use of insulin; Z68.43 Body mass index [BMI] 50.0-59.9, adult

== ENCOUNTER → 2021-02-18 | Outpatient (REF) | payer OTHER, MEDICAID ==
[~2021-02-18] MED LIST changes: +ACET-683 PO; +AUGM875T28 PO; +DULO60CA35 PO; +EXCETAB33 PO; +FIOR1CAP PO; +FLON1SPR NARES; +FLUT15.820 NARES; +INSUH10VL SC; +LANTINJ4 SC; +LEVO200T31 PO; +LEVO200T4 PO; +LORA-622 PO; +MILKSUS3 PO; +MIRA1POW3 PO; +MOM30SS PO; +OMEP40CA4 PO; -OMEP40CA97 PO; +VALP250S PO
[2021-02-18 12:06] LABS: BLOOD UREA NITROGEN 14 MG/DL (7-18); CALCIUM LEVEL 9.2 MG/DL (8.8-10.2); CARBON DIOXIDE LEVEL 26 MEQ/L (21-32); CHLORIDE LEVEL 101 MEQ/L (98-107); CREATININE FOR GFR 0.89 MG/DL (0.55-1.30); GLOMERULAR FILTRATION RATE > 60.0 (>45); GLUCOSE, FASTING 213 MG/DL (70-100); POTASSIUM SERUM 4.6 MEQ/L (3.5-5.1); SODIUM LEVEL 136 MEQ/L (136-145)
== END ==
PROVIDERS: ATTEND Internal Medicine
DX: I10 Essential (primary) hypertension (principal)

== ENCOUNTER → 2021-02-19 | Outpatient (REF) | payer OTHER ==
[2021-02-19 09:39] LABS: HEMATOCRIT 37.2 % (36.0-47.0); HEMOGLOBIN 11.5 g/dl (12.0-15.5); MEAN CORPUSCULAR HEMOGLOBIN 27.3 pg (27.0-33.0); MEAN CORPUSCULAR HGB CONC 30.9 g/dl (32.0-36.5); MEAN CORPUSCULAR VOLUME 88.4 fl (80.0-96.0); PLATELET COUNT, AUTOMATED 258 10^3/uL (150-450); RED BLOOD COUNT 4.21 10^6/uL (4.00-5.40); WHITE BLOOD COUNT 6.7 10^3/uL (4.0-10.0)
== END ==
PROVIDERS: ATTEND Internal Medicine
DX: I10 Essential (primary) hypertension (principal)

== ENCOUNTER → 2021-02-25 | Outpatient (REF) | payer OTHER, MEDICAID ==
[~2021-02-25] MED LIST changes: -DULO60CA35 PO; -EXCETAB33 PO; -FIOR1CAP PO; -FLON1SPR NARES; -FLUT15.820 NARES; -LEVO200T31 PO; -LEVO200T4 PO; -LORA-622 PO; -MILKSUS3 PO; -MIRA1POW3 PO; -OMEP40CA4 PO; +OMEP40CA97 PO
[2021-02-25 11:02] LABS: HEMATOCRIT 37.9 % (36.0-47.0); HEMOGLOBIN 11.6 g/dl (12.0-15.5); MEAN CORPUSCULAR HEMOGLOBIN 27.4 pg (27.0-33.0); MEAN CORPUSCULAR HGB CONC 30.6 g/dl (32.0-36.5); MEAN CORPUSCULAR VOLUME 89.4 fl (80.0-96.0); PLATELET COUNT, AUTOMATED 267 10^3/uL (150-450); RED BLOOD COUNT 4.24 10^6/uL (4.00-5.40); WHITE BLOOD COUNT 7.4 10^3/uL (4.0-10.0)
[2021-02-25 12:11] LABS: BLOOD UREA NITROGEN 21 MG/DL (7-18); CALCIUM LEVEL 9.1 MG/DL (8.8-10.2); CARBON DIOXIDE LEVEL 26 MEQ/L (21-32); CHLORIDE LEVEL 101 MEQ/L (98-107); CHOLESTEROL LEVEL 117 MG/DL (<200); CREATININE FOR GFR 0.85 MG/DL (0.55-1.30); GLOMERULAR FILTRATION RATE > 60.0 (>45); GLUCOSE, FASTING 226 MG/DL (70-100); HDL CHOLESTEROL 52 MG/DL (>40); LDL CHOLESTEROL 48 MG/DL (<100); NON-HDL-C 65 MG/DL; POTASSIUM SERUM 4.3 MEQ/L (3.5-5.1); SODIUM LEVEL 138 MEQ/L (136-145); THYROID STIMULATING HORMONE 0.894 uIU/ML (0.358-3.740); TRIGLYCERIDES LEVEL 87 MG/DL (<150); VALPROIC ACID (DEPAKOTE) 79.5 UG/ML (50.0-100.0)
[2021-02-25 12:35] LABS: HEMOGLOBIN A1c 8.5 %
== END ==
PROVIDERS: ATTEND Internal Medicine
DX: I10 Essential (primary) hypertension (principal); E78.5 Hyperlipidemia, unspecified; E11.9 Type 2 diabetes mellitus without complications; G40.909 Epilepsy, unspecified, not intractable, without status epilepticus

== ENCOUNTER → 2021-03-10 | Outpatient (REF) | payer OTHER ==
[~2021-03-10] MED LIST changes: +OMEP40CA4 PO; -OMEP40CA97 PO
== END ==
PROVIDERS: ATTEND Internal Medicine
DX: Z20.822 Contact with and (suspected) exposure to COVID-19 (principal); Z01.89 Encounter for other specified special examinations

== ENCOUNTER 2021-03-13 16:37 | Emergency (ER) | payer OTHER ==
[~2021-03-13] VITALS: Ht 154.9 cm; Wt 127.3 kg
[2021-03-13] MEDS ORDERED: SUMAtriptan SUCCINATE 6 MG/0.5 ML VIAL SC ONE (17:50)
[2021-03-13] MEDS ORDERED: diphenhydrAMINE 50MG/ML VIAL (J1200) IV STA (20:04)
[2021-03-13] MEDS ORDERED: KETOROLAC 30 MG/ML 1ML VIAL IV ONE (20:05)
[2021-03-13] MEDS ORDERED: NS 1,000 ML IV ONE (20:05)
[2021-03-13] MEDS ORDERED: METOCLOPRAMIDE INJ 10MG/2ML VIAL (J2765 PER 1) IV ONE (21:00)
[2021-03-13 23:00] VITALS: BP 116/73
[2021-03-15] MEDS ORDERED: DULO1CAP6 PO (23:48)
[2021-03-15] MEDS ORDERED: FLON1SPR NARES (23:48)
== END 2021-03-14 00:18 | disposition home or self-care (01) ==
LOC: M ED 16:37
DX: G43.909 Migraine, unspecified, not intractable, without status migrainosus (principal); M79.7 Fibromyalgia; K21.9 Gastro-esophageal reflux disease without esophagitis; E03.9 Hypothyroidism, unspecified; F20.9 Schizophrenia, unspecified; J45.909 Unspecified asthma, uncomplicated; E11.9 Type 2 diabetes mellitus without complications; I11.0 Hypertensive heart disease with heart failure; Z88.8 Allergy status to other drugs, medicaments and biological substances; Z91.013 Allergy to seafood
CPT/HCPCS: 96361; 96374; 96375; 99284; J1200; J1885; J2765

== ENCOUNTER 2021-03-15 23:24 | Emergency (ER) | payer OTHER ==
[~2021-03-15] VITALS: Ht 154.9 cm; Wt 127.2 kg
[2021-03-15] MEDS ORDERED: FLON1SPR NARES (23:48)
[2021-03-15] MEDS ORDERED: DULO1CAP6 PO (23:48)
[2021-03-16] MEDS ORDERED: DEPA1TAB3 PO (01:22)
[2021-03-16] MEDS ORDERED: LEVO200T4 PO (01:22)
[2021-03-16] MEDS ORDERED: diphenhydrAMINE 50MG/ML VIAL (J1200) IV ONE (02:40)
[2021-03-16] MEDS ORDERED: METOCLOPRAMIDE INJ 10MG/2ML VIAL (J2765 PER 1) IV ONE (02:40)
--- NOTE | 2021-03-16 04:00 | REPVR ---
PROCEDURE INFORMATION: Exam: CT Head Without Contrast Exam date and time: 03/16/2021 2:53 AM Age: 60 years old Clinical indication: Pain; Headache TECHNIQUE: Imaging protocol: Computed tomography of the head without contrast. Radiation optimization: All CT scans at this facility use at least one of these dose optimization techniques: automated exposure control; mA and/or kV adjustment per patient size (includes targeted exams where dose is matched to clinical indication); or iterative reconstruction. COMPARISON: 1. MRI-Brain without Contrast 2021-02-06 21:[address] Head without contrast 2021-02-06 18:11 FINDINGS: Brain: Diffuse moderate cerebral volume loss. No midline shift, mass, fluid collection, or evidence of acute hemorrhage. Cerebral ventricles: Moderate ventricular enlargement. Paranasal sinuses: Visualized sinuses are unremarkable. No fluid levels. Mastoid air cells: Visualized mastoid air cells are well aerated. Bones/joints: Unremarkable. No acute fracture. Soft tissues: Unremarkable. IMPRESSION: No acute intracranial abnormality. Electronically signed by: Ton Wyman On 03/16/2021 04:00:14 AM
[2021-03-16] MEDS ORDERED: FIOR1CAP PO (05:20)
[2021-03-16 06:24] VITALS: BP 139/65
== END 2021-03-16 06:26 | disposition home or self-care (01) ==
LOC: M ED 23:24
DX: G43.909 Migraine, unspecified, not intractable, without status migrainosus (principal); Z79.899 Other long term (current) drug therapy; Z79.890 Hormone replacement therapy; Z79.84 Long term (current) use of oral hypoglycemic drugs; Z79.51 Long term (current) use of inhaled steroids; Z88.8 Allergy status to other drugs, medicaments and biological substances; Z91.013 Allergy to seafood
CPT/HCPCS: 70450; 96374; 96375; 99284; J1200; J2765

== ENCOUNTER → 2021-03-18 | Outpatient (CLI) | payer OTHER ==
[~2021-03-18] MED LIST changes: +FIOR1CAP PO; +FLON1SPR NARES; +LEVO200T4 PO
--- NOTE | 2021-03-18 16:41 | DEXAMM ---
INDICATION: M85.88 OSTEOPENIA OF LUMBAR SPINE. COMPARISON: None. TECHNIQUE: Bone density was measured using dual-energy x-ray absorptionmetry (DEXA). FINDINGS: AP SPINE L1-L4 BMD 1.154 g/cm2 Young Adult T-Score -0.3 Age Matched Z-Score 1.0. LT FEMUR, TOTAL BMD 0.728 g/cm2 Young Adult T-Score -2.2 Age Matched Z-Score -1.2. LT NECK BMD 0.656 g/cm2 Young Adult T-Score -2.8 Age Matched Z-Score -1.4. RT FEMUR, TOTAL BMD 0.790 g/cm2 Young Adult T-Score -1.7 Age Matched Z-Score -0.7. RT NECK BMD 0.721 g/cm2 Young Adult T-Score -2.3 Age Matched Z-Score -0.9. IMPRESSION: There is normal bone density of the spine. There is osteoporosis of the left hip. There is low bone density of the right hip. FOLLOW-UP: Recommendation for the next bone density exam: 2 years. <Electronically signed by Diogenes Mckeon > 03/18/21 [id number]
== END ==
LOC: M WHC 14:47
PROVIDERS: ATTEND Physician Assistant Medical
DX: M85.88 Other specified disorders of bone density and structure, other site (principal)

== ENCOUNTER 2021-03-23 13:54 | Inpatient (IN) | payer MEDICAID, OTHER ==
[~2021-03-23] VITALS: Ht 154.9 cm; Wt 134.2 kg
[2021-03-23] MEDS ORDERED: traMADol 50 MG TAB PO SCH (14:00)
[2021-03-23 14:49] LABS: BASO # 0.1 10^3/uL (0.0-0.2); BASO % 0.7 % (0.0-1.0); EOS # 0.4 10^3/uL (0.0-0.5); EOS % 5.6 % (0.0-3.0); HEMATOCRIT 38.6 % (36.0-47.0); LYMPH % 27.7 % (24.0-44.0); MEAN CORPUSCULAR HEMOGLOBIN 28.4 pg (27.0-33.0); MEAN CORPUSCULAR HGB CONC 31.1 g/dl (32.0-36.5); MEAN CORPUSCULAR VOLUME 91.5 fl (80.0-96.0); MONO # 0.7 10^3/uL (0.0-0.8); NEUTROPHILS % 54.9 % (36.0-66.0); PLATELET COUNT, AUTOMATED 283 10^3/uL (150-450); RED BLOOD COUNT 4.22 10^6/uL (4.00-5.40); WHITE BLOOD COUNT 7.3 10^3/uL (4.0-10.0)
--- NOTE | 2021-03-23 15:03 | REP ---
INDICATION: ro dvt - swelling and pain both legs COMPARISON: None. TECHNIQUE: Vasquez scale and color Doppler evaluation using linear high frequency transducer. FINDINGS: Ultrasound examination of the lower extremity deep venous structures from the common femoral vein through the popliteal veins demonstrates normal compressibility flow and wave patterns in response to respiration and augmentation. There is no evidence for deep venous thrombosis. IMPRESSION: No evidence for deep venous thrombosis. <Electronically signed by Petey Walker > 03/23/21 [id number]
--- NOTE | 2021-03-23 15:04 | REP ---
INDICATION: cellulitis legs COMPARISON: 09/19/2020 TECHNIQUE: Portable AP view of the chest FINDINGS: The mediastinum and cardiac silhouette are stable and within normal limits for portable technique. The lung bullock are clear without acute consolidation, effusion, or pneumothorax. Skeletal structures are intact. IMPRESSION: No acute cardiopulmonary process appreciated. <Electronically signed by Petey Walker > 03/23/21 [id number]
[2021-03-23 15:13] LABS: ERYTHROCYTE SEDIMENTATION RATE 40 mm/hr (0-30)
[2021-03-23 15:19] LABS: ALBUMIN 3.1 GM/DL (3.2-5.2); ALT/SGPT 19 U/L (12-78); BILIRUBIN,DIRECT < 0.1 MG/DL (0.0-0.2); BILIRUBIN,TOTAL 0.2 MG/DL (0.2-1.0); BLOOD UREA NITROGEN 16 MG/DL (7-18); CALCIUM LEVEL 8.3 MG/DL (8.8-10.2); CARBON DIOXIDE LEVEL 32 MEQ/L (21-32); CHLORIDE LEVEL 100 MEQ/L (98-107); CREATININE FOR GFR 0.93 MG/DL (0.55-1.30); GLOMERULAR FILTRATION RATE > 60.0 (>45); GLUCOSE, FASTING 225 MG/DL (70-100); POTASSIUM SERUM 4.4 MEQ/L (3.5-5.1); SODIUM LEVEL 136 MEQ/L (136-145); TOTAL PROTEIN 7.2 GM/DL (6.4-8.2)
[2021-03-23] MEDS ORDERED: PIPERACILLIN/TAZOBACTAM SOD 4.5 GM in D5W MINI-BAG PLUS 50 ML IV ONE (15:45)
[2021-03-23] MEDS ORDERED: MORPHINE 2 MG/ML 1ML VIAL (J2270) IV PRN (15:50)
[2021-03-23] MEDS ORDERED: MILKSUS3 PO (16:41)
[2021-03-23] MEDS ORDERED: DULO60CA35 PO (16:41)
[2021-03-23] MEDS ORDERED: EXCETAB33 PO (16:41)
[2021-03-23] MEDS ORDERED: LEVO200T31 PO (16:41)
[2021-03-23] MEDS ORDERED: LORA-622 PO (16:41)
[2021-03-23] MEDS ORDERED: FLUT15.820 NARES (16:41)
[2021-03-23] MEDS ORDERED: DEPA1TAB3 PO (16:41)
[2021-03-23] MEDS ORDERED: GLUCOSE 4GM CHEW TABLET PO PRN (17:00)
[2021-03-23] MEDS ORDERED: GLUCAGON INJ 1MG VIAL SC PRN (17:00)
[2021-03-23] MEDS ORDERED: DEXTROSE 50% 50 ML SYRINGE IV PRN (17:00)
[2021-03-23 17:02] LABS: RSV AMPLIFICATION NEGATIVE (NEGATIVE)
--- NOTE | 2021-03-23 17:18 | HPEPDOC ---
General Date of Admission 03/23/21 Date of Service: Mar 23, 2021 Chief Complaint The patient is a 60-year-old female admitted with a reason for visit of Cellulitis. Source: Patient, RN/MD History of Present Illness This is a 60-year-old female a resident of [facility] assisted living with past medical history of obesity, bilateral lower leg lymphedema, diabetes, hypertension, hypothyroid, hyperlipidemia, seizure disorder, fibromyalgia, migraine,GERD gait instability uses a walker to ambulate presented to the emergency room for burning pain and swelling with redness of both the legs which started this morning. She reported that she was feeling unwell yesterday but nothing major and when she went to bed her legs were as usual looking but this morning when she woke up she saw that her both her legs were swollen and both her legs where red and hot and painful so that she could not put pressure on the legs to walk so she was brought to the emergency room. She denied any fever or chills. She had DVT scan done for both the legs which were negative. She was admitted for bilateral cellulitis Home Medications Scheduled Acetaminophen (Acetaminophen) 500 Mg Tablet, 1,000 MG PO TID, (Reported) Atorvastatin Calcium (Atorvastatin Calcium) 40 Mg Tablet, 40 MG PO QHS, (Reported) Buspirone HCl (Buspirone HCl) 15 Mg Tablet, 15 MG PO BID, (Reported) Divalproex Sodium (Depakote) 500 Mg Tablet.dr, 500 MG PO BID, (Reported) Duloxetine HCl (Duloxetine HCl) 60 Mg Capsule.dr, 120 MG PO DAILY, (Reported) Ferrous Gluconate (Ferrous Gluconate) 324 Mg Tablet, 324 MG PO DAILY, (Reported) Fluticasone Propionate (Fluticasone Propionate) 15.8 Ml [place].susp, 1 SPRAY NARES DAILY, (Reported) Furosemide (Furosemide) 40 Mg Tablet, 40 MG PO DAILY, (Reported) Gabapentin (Gabapentin) 400 Mg Capsule, 400 MG PO TID, (Reported) Insulin Glargine,Hum.rec.anlog (Lantus Solostar) 100 Unit/1 Ml Insuln.pen, 82 UNITS SC QHS, (Reported) Insulin Human Lispro (Novolog) 100 Unit/1 Ml Vial, 8 UNITS SC AC, (Reported) Levothyroxine Sodium (Levoxyl) 200 Mcg Tablet, 200 MCG PO DAILY, (Reported) Loratadine (Loratadine) 10 Mg Tablet, 10 MG PO QHS, (Reported) Losartan Potassium (Losartan Potassium) 50 Mg Tablet, 50 MG PO QHS, (Reported) Nystatin (Nystatin Powder) 15 Gm Powder, 1 DOSE TOP BID, (Reported) APPLY UNDER BREASTS Omeprazole (Omeprazole) 40 Mg Capsule.dr, 40 MG PO DAILY, (Reported) Potassium Chloride (Potassium Chloride) 10 Meq Tablet.er, 10 MEQ PO QHS, (Reported) Trazodone HCl (Trazodone HCl) 150 Mg Tablet, 150 MG PO QHS, (Reported) Scheduled PRN Aspirin/Acetaminophen/Caffeine (Excedrin Migraine Caplet) 1 Each Tablet, 2 TAB- CAP PO Q6H PRN for MIGRAINE, (Reported) Lidocaine/Prilocaine (Lidocaine-Prilocaine Cream) 2.5%/2.5% Cream..g., 1 APLCT TOP QID PRN for PAIN, (Reported) APPLY TO LEFT KNEE, NECK, SHOULDERS, AND BUTTOCKS Magnesium Hydroxide (Milk of Magnesia) 400 Mg/5 Ml Oral.susp, 30 ML PO DAILY PRN for CONSTIPATION, (Reported) Allergies Coded Allergies: shellfish derived (Verified Allergy, Severe, ANAPHYLAXIS, 12/03/20) atorvastatin (Verified Adverse Reaction, Intermediate, ELEVATED LIVER ENZYMES, 12/03/20) quetiapine (Verified Adverse Reaction, Intermediate, SEIZURES, 12/03/20) Hydrolyzed [place] Oil (Verified Adverse Reaction, Mild, DIARRHEA, 12/03/20) ibuprofen (Verified Adverse Reaction, Mild, UPSET STOMACH, 12/03/20) metformin (Verified Adverse Reaction, Mild, DIARRHEA, 12/03/20) Past Medical History Medical History IDDM2 w neuropathy, essential HTN, Hypothyroidism, Seizure Disorder, OA, Unsteady gait/ frequent falls/ uses walker, Fibromyalgia, Venous insufficiency w lymphedema, anxiety/ depression, Obesity, Tubal ligation, In-Pt Psych admission for Adjustment disorder, PTSD, migraine, asthma Family History Mother CHF Father - CKD Social History * Smoker: Denies Alcohol: Denies Drugs: denies A-FIB/CHADSVASC A-FIB History Current/History of A-Fib/PAF?: No Review of Systems Constitutional: Denies: Chills, Fever, Night Sweats Eyes: Denies: Pain, Vision change ENT: Denies: Head Aches, Ear Pain, Dysphagia Skin: Reports: Other (Both legs are red and swollen) Pulmonary: Denies: Dyspnea, Cough Cardiovascular: Denies: Chest Pain, Palpitations, Orthopnea, Paroxysmal Noc. Dyspnea, Lt Headedness Gastrointestinal: Denies: Nausea, Vomiting, Abdominal Pain, Diarrhea Genitourinary: Denies: Dysuria, Frequency, Incontinence, Retention Hematologic: Denies: Bruising, Bleeding Excessively Musculoskeletal: Reports: Back Pain Physical Examination General Exam: Positive: Alert, Cooperative, No Acute Distress Eye Exam: Positive: PERRLA, Conjunctiva & lids normal, EOMI; Negative: Sclera icteric ENT Exam: Positive: Atraumatic, Mucous membr. moist/pink, Pharynx Normal Neck Exam: Positive: Supple; Negative: JVD, thyromegaly Chest Exam: Positive: Clear to auscultation, Normal air movement Heart Exam: Positive: Rate Normal, Regular Rhythm, Normal S1, Normal S2; Negative: Murmurs, Rubs Abdomen Exam: Positive: Normal bowel sounds, Soft; Negative: Tenderness, Hepatospenomegaly Extremity Exam: Positive: Edema, Tenderness, Swelling Skin Exam: Positive: Other skin issue (Both the lower part of the legs are red and inflamed) Vital Signs Vital Signs Date Time Temp Pulse Resp B/P (MAP) Pulse Ox O2 Delivery O2 Flow Rate FiO2 03/23/21 14:31 145/69 (94) 03/23/21 14:24 83 19 96 Room Air 03/23/21 14:00 98.3 Laboratory Data Labs 24H Laboratory Tests 2 03/23/21 14:27: Immature Granulocyte % (Auto) 1.1, Neutrophils (%) (Auto) 54.9, Lymphocytes (%) (Auto) 27.7, Monocytes (%) (Auto) 10.0H, Eosinophils (%) (Auto) 5.6H, Basophils (%) (Auto) 0.7, Neutrophils # (Auto) 4.0, Lymphocytes # (Auto) 2.0, Monocytes # (Auto) 0.7, Eosinophils # (Auto) 0.4, Basophils # (Auto) 0.1, Nucleated Red Blood Cells % (auto) 0.0, Erythrocyte Sedimentation Rate 40H, Anion Gap 4L, Glomerular Filtration Rate > 60.0, Lactic Acid Level 2.0, Calcium Level 8.3L, Total Bilirubin 0.2, Direct Bilirubin < 0.1, Aspartate Amino Transf (AST/SGOT) 22, Alanine Aminotransferase (ALT/SGPT) 19, Alkaline Phosphatase 66, C-Reactive Protein, Quantitative 0.60H, Total Protein 7.2, Albumin 3.1L, Albumin/Globulin Ratio 0.8L CBC/BMP Laboratory Tests 03/23/21 14:27 Microbiology Microbiology 03/23/21 Blood Culture, Received Pending 03/23/21 Blood Culture, Received Pending Assessment/Plan This is a 60-year-old female a resident of [facility] assisted living with past medical history of obesity, bilateral lower leg lymphedema, diabetes, hypertension, hypothyroid, hyperlipidemia, seizure disorder, fibromyalgia, migraine,GERD gait instability uses a walker to ambulate presented to the emergency room for burning pain and swelling with redness of both the legs which started this morning. She was admitted for bilateral cellulitis. Bilateral lower leg cellulitis Will give ceftaroline Blood culture sent Pain control with tramadol and ketorolac and Tylenol Diabetes with neuropathy We will give Levemir and lispro fingersticks before meals and at bedtime Continue gabapentin, duloxetine Fibromyalgia Continue duloxetine, gabapentin Hypothyroid Continue Synthroid Seizure disorder Continue Depakote Hypertension Continue losartan Hyperlipidemia Continue statin Anxiety /depression /insomnia/ adjustment disorder Continue buspirone, trazodone, Depakote Plan / VTE VTE Prophylaxis Ordered?: Yes LENY ANTONIO MD Mar 23, 2021 15:55
[2021-03-23 17:57] VITALS: BP 127/71
[2021-03-23] MEDS: GABAPENTIN 400MG CAP PO SCH ×2 (18:13→20:18)
[2021-03-23] MEDS: ACETAMINOPHEN 500 MG TAB PO SCH ×2 (18:13→20:18)
[2021-03-23] MEDS: HumaLOG INSULIN (NovoLOG) PER UNIT SC SCH ×2 (18:13→20:47)
[2021-03-23] MEDS ORDERED: FUROSEMIDE 100MG/10ML VIAL (J1940) IV ONE (18:15)
[2021-03-23] MEDS: CEFTAROLINE FOSAMIL 600 MG in D5W MINI-BAG PLUS 50 ML IV SCH (18:35)
--- NOTE | 2021-03-23 19:22 | ECGEPIP ---
[facility] - ED Test Date: 2021-03-23 Pat Name: KAIN RUIZ Department: Room: - Gender: Female Family Law Legal Assistant: MELANIE : 1960 Requested By: Lc Mendez Order Number: [id number] Reading MD: Lc Mendez Measurements Intervals [place]ons Rate: 78 P: 26 TN: 158 QRS: 54 QRSD: 84 T: 106 QT: 412 QTc: 469 Interpretive Statements Normal sinus rhythm Nonspecific T wave abnormality Baseline artifact may affect reading Delayed R wave progression Borderline prolonged QTc cw 02/06/[address] T wave changes Electronically Signed on 03-23-2021 19:22:09 EDT by Lc Mendez
[2021-03-23] MEDS: traZODone 50 MG TAB PO SCH (20:18)
[2021-03-23] MEDS: ATORVASTATIN 20 MG TAB PO SCH (20:18)
[2021-03-23] MEDS: DIVALPROEX 500 MG TAB PO SCH (20:19)
[2021-03-23] MEDS: busPIRone 5 MG TAB PO SCH (20:19)
[2021-03-23] MEDS: LOSARTAN 50MG TABLET PO SCH (20:21)
[2021-03-23] MEDS: LORATADINE 10 MG TAB PO SCH (20:21)
[2021-03-23] MEDS: LEVEMIR (INSULIN DETEMIR) 1 UNITS/0.01ML SC SCH (20:21)
[2021-03-23] MEDS: traMADol 50 MG TAB PO SCH (21:18)
[2021-03-23 22:00] VITALS: BP 136/68
[2021-03-24] MEDS: KETOROLAC 30 MG/ML 1ML VIAL IV PRN ×2 (00:15→12:55)
[2021-03-24] MEDS: LEVOTHYROXINE 100MCG TABLET (0.1MG) PO SCH (05:45)
[2021-03-24] MEDS: CEFTAROLINE FOSAMIL 600 MG in D5W MINI-BAG PLUS 50 ML IV SCH ×2 (05:45→17:25)
[2021-03-24] MEDS: traMADol 50 MG TAB PO SCH ×3 (05:46→22:26)
[2021-03-24 06:00] VITALS: BP 111/61
[2021-03-24 06:34] LABS: BASO % 0.5 % (0.0-1.0); EOS # 0.5 10^3/uL (0.0-0.5); EOS % 6.9 % (0.0-3.0); HEMATOCRIT 36.1 % (36.0-47.0); HEMOGLOBIN 11.1 g/dl (12.0-15.5); LYMPH # 2.2 10^3/uL (1.5-5.0); LYMPH % 28.5 % (24.0-44.0); MEAN CORPUSCULAR HEMOGLOBIN 28.2 pg (27.0-33.0); MEAN CORPUSCULAR HGB CONC 30.7 g/dl (32.0-36.5); MEAN CORPUSCULAR VOLUME 91.6 fl (80.0-96.0); MONO # 0.8 10^3/uL (0.0-0.8); MONO % 10.7 % (2.0-8.0); NEUTROPHILS % 52.9 % (36.0-66.0); PLATELET COUNT, AUTOMATED 262 10^3/uL (150-450); RED BLOOD COUNT 3.94 10^6/uL (4.00-5.40); WHITE BLOOD COUNT 7.6 10^3/uL (4.0-10.0)
[2021-03-24 07:01] LABS: BLOOD UREA NITROGEN 20 MG/DL (7-18); CALCIUM LEVEL 8.8 MG/DL (8.8-10.2); CARBON DIOXIDE LEVEL 36 MEQ/L (21-32); CHLORIDE LEVEL 99 MEQ/L (98-107); CREATININE FOR GFR 0.91 MG/DL (0.55-1.30); GLOMERULAR FILTRATION RATE > 60.0 (>45); GLUCOSE, FASTING 114 MG/DL (70-100); POTASSIUM SERUM 3.9 MEQ/L (3.5-5.1); SODIUM LEVEL 140 MEQ/L (136-145)
[2021-03-24] MEDS: ENOXAPARIN 40MG/0.4ML SYRINGE (J1650 PER 10MG) SC SCH (08:12)
[2021-03-24] MEDS: LEVEMIR (INSULIN DETEMIR) 1 UNITS/0.01ML SC SCH ×2 (08:13→21:17)
[2021-03-24] MEDS: FERROUS GLUCONATE 324 MG TAB PO SCH (08:14)
[2021-03-24] MEDS: ACETAMINOPHEN 500 MG TAB PO SCH ×4 (08:14→21:19)
[2021-03-24] MEDS: DULoxetine 30 MG CAP (CYMBALTA) PO SCH (08:14)
[2021-03-24] MEDS: GABAPENTIN 400MG CAP PO SCH ×3 (08:14→21:15)
[2021-03-24] MEDS: HumaLOG INSULIN (NovoLOG) PER UNIT SC SCH ×4 (08:14→21:00)
[2021-03-24] MEDS: DIVALPROEX 500 MG TAB PO SCH ×2 (08:15→21:15)
[2021-03-24] MEDS: busPIRone 5 MG TAB PO SCH ×2 (08:18→21:15)
[2021-03-24] MEDS ORDERED: FUROSEMIDE 40MG/4ML VIAL (J1940) IV SCH (09:00)
[2021-03-24 14:00] VITALS: BP 137/81
[2021-03-24] MEDS ORDERED: FUROSEMIDE 40MG/4ML VIAL (J1940) IV ONE (17:45)
[2021-03-24 20:56] VITALS: BP 139/85
[2021-03-24] MEDS: ATORVASTATIN 20 MG TAB PO SCH (21:15)
[2021-03-24] MEDS: traZODone 50 MG TAB PO SCH (21:15)
[2021-03-24] MEDS: LORATADINE 10 MG TAB PO SCH (21:15)
[2021-03-24 21:18] VITALS: BP 152/86
[2021-03-24] MEDS: LOSARTAN 50MG TABLET PO SCH (21:18)
[2021-03-25] MEDS: KETOROLAC 30 MG/ML 1ML VIAL IV PRN (01:36)
[2021-03-25] MEDS: traMADol 50 MG TAB PO SCH (05:40)
[2021-03-25] MEDS: CEFTAROLINE FOSAMIL 600 MG in D5W MINI-BAG PLUS 50 ML IV SCH (05:40)
[2021-03-25] MEDS: LEVOTHYROXINE 100MCG TABLET (0.1MG) PO SCH (05:40)
[2021-03-25 06:16] VITALS: BP 122/84
[2021-03-25 06:39] LABS: BASO % 0.5 % (0.0-1.0); EOS # 0.5 10^3/uL (0.0-0.5); EOS % 7.2 % (0.0-3.0); HEMATOCRIT 36.2 % (36.0-47.0); HEMOGLOBIN 11.2 g/dl (12.0-15.5); LYMPH # 2.4 10^3/uL (1.5-5.0); LYMPH % 31.5 % (24.0-44.0); MEAN CORPUSCULAR HEMOGLOBIN 28.2 pg (27.0-33.0); MEAN CORPUSCULAR HGB CONC 30.9 g/dl (32.0-36.5); MEAN CORPUSCULAR VOLUME 91.2 fl (80.0-96.0); MONO # 0.7 10^3/uL (0.0-0.8); MONO % 8.9 % (2.0-8.0); NEUTROPHILS # 3.9 10^3/uL (1.5-8.5); NEUTROPHILS % 51.5 % (36.0-66.0); PLATELET COUNT, AUTOMATED 253 10^3/uL (150-450); RED BLOOD COUNT 3.97 10^6/uL (4.00-5.40); WHITE BLOOD COUNT 7.6 10^3/uL (4.0-10.0)
[2021-03-25 06:58] LABS: BLOOD UREA NITROGEN 23 MG/DL (7-18); CALCIUM LEVEL 8.5 MG/DL (8.8-10.2); CARBON DIOXIDE LEVEL 37 MEQ/L (21-32); CHLORIDE LEVEL 97 MEQ/L (98-107); GLOMERULAR FILTRATION RATE > 60.0 (>45); GLUCOSE, FASTING 89 MG/DL (70-100); POTASSIUM SERUM 4.4 MEQ/L (3.5-5.1); SODIUM LEVEL 136 MEQ/L (136-145)
[2021-03-25] MEDS: HumaLOG INSULIN (NovoLOG) PER UNIT SC SCH ×4 (07:30→20:41)
[2021-03-25] MEDS: LEVEMIR (INSULIN DETEMIR) 1 UNITS/0.01ML SC SCH ×2 (09:00→20:42)
[2021-03-25] MEDS ORDERED: HYDROMORPHONE HCL 0.5 MG/ 0.5 ML SYRINGE (J1170 PER 1) IV ONE (09:05)
[2021-03-25] MEDS ORDERED: NALOXONE INJ 0.4MG/1ML VIAL (J2310 PER 1MG) IV PRN (09:05)
[2021-03-25] MEDS: ACETAMINOPHEN 500 MG TAB PO SCH ×3 (09:21→20:41)
[2021-03-25] MEDS: KETOROLAC 30 MG/ML 1ML VIAL IV SCH ×3 (09:21→20:43)
[2021-03-25] MEDS: busPIRone 5 MG TAB PO SCH ×2 (09:21→20:39)
[2021-03-25] MEDS: DULoxetine 30 MG CAP (CYMBALTA) PO SCH (09:21)
[2021-03-25] MEDS: DIVALPROEX 500 MG TAB PO SCH ×2 (09:21→20:39)
[2021-03-25] MEDS: ENOXAPARIN 40MG/0.4ML SYRINGE (J1650 PER 10MG) SC SCH (09:22)
[2021-03-25] MEDS: GABAPENTIN 400MG CAP PO SCH ×3 (09:22→20:40)
[2021-03-25] MEDS: FERROUS GLUCONATE 324 MG TAB PO SCH (09:22)
[2021-03-25] MEDS ORDERED: LevoFLOXacin IV 750 MG in IV 1 EA IV SCH (12:00)
--- NOTE | 2021-03-25 12:58 | IPN ---
PROGRESS NOTE DATE: 03/25/2021 SUBJECTIVE: The patient complains of 10/10 pain of bilateral lower extremities, not alleviated with acetaminophen t.i.d. and IV Toradol as needed as well as Tramadol. Patient is chronically on Gabapentin. Due to BMI of 56.6, we have attempted to refrain from opioid narcotics due to increased risk of respiratory acidosis. No fever or chills overnight. Erythema is decreased on IV Ceftaroline but MRSA screen is negative. OBJECTIVE: VITAL SIGNS: Temperature is 96.4, pulse is 68, respiratory rate is 20, blood pressure is 122/84, 96% on room air. GENERAL APPEARANCE: Awake, alert and oriented to person, place and time, answering questions appropriately. HEENT: Moist mucous membranes. NECK: No JVD, thyromegaly or cervical lymphadenopathy. LUNGS: Clear to auscultation. No wheezing, rales or rhonchi. HEART: S1 and S2, sinus rhythm. ABDOMEN: Obese, soft, nontender and nondistended. Positive bowel sounds. EXTREMITIES: Bilateral lower extremity erythema. No induration, Slight tenderness on deep palpation, improving erythema along the marked site. LABORATORY DATA: Imaging studies have been reviewed. ASSESSMENT AND PLAN: This is a 58-year-old with supermorbid obesity, BMI of 56.6, admitted on 03/23/2021 due to bilateral lower extremity cellulitis with a history of bilateral lower extremity lymphedema, diabetes, hypertension, hypothyroidism, hyperlipidemia, seizure disorder, fibromyalgia, reflux disease, gait instability, uses a walker and fibromyalgia. Patient had been on Ceftaroline on March 23 and March 24. MRSA screen is negative. White count is normal. Patient remains afebrile with improvement in the bilateral lower extremity edema and erythema. Patient still complains of severe pain. IMPRESSION: 1. Bilateral lower extremity diabetic skin infection/cellulitis. Patient has been on Ceftaroline x2 days, transition to Flagyl 500 q. 8 hourly and for Pseudomonas coverage Levaquin 750 IV daily, pharmacy consulted for renal dosing. 2. Type 2 diabetes, controlled on Levemir, consistent carbohydrate diet, fingersticks q. a.c. and h.s. 3. Neuropathy secondary to diabetes on Gabapentin and Duloxetine. 4. Chronic fibromyalgia, on Duloxetine and Gabapentin. 5. Hypothyroidism, on Synthroid. Seizure disorder on Depakote. 6. Hypertension and acute kidney injury. Patient is currently on Toradol, blood pressure has been stable at 122 systolic, if needed patient can be given Norvasc for blood pressure control. If the heart rate is greater than 70 she may also be given beta blockers. MTDD
[2021-03-25 14:00] VITALS: BP 135/68
[2021-03-25] MEDS: metroNIDAZOLE 500 MG in IV 1 EA IV SCH ×2 (14:11→20:42)
[2021-03-25] MEDS: LORATADINE 10 MG TAB PO SCH (20:39)
[2021-03-25] MEDS: ATORVASTATIN 20 MG TAB PO SCH (20:40)
[2021-03-25] MEDS: traZODone 50 MG TAB PO SCH (20:40)
[2021-03-25 22:00] VITALS: BP 158/81
[2021-03-26] MEDS: KETOROLAC 30 MG/ML 1ML VIAL IV SCH ×4 (02:15→20:17)
[2021-03-26] MEDS: LEVOTHYROXINE 100MCG TABLET (0.1MG) PO SCH (05:19)
[2021-03-26] MEDS: metroNIDAZOLE 500 MG in IV 1 EA IV SCH (05:20)
[2021-03-26 06:00] VITALS: BP 125/61
[2021-03-26 06:32] LABS: BASO % 0.4 % (0.0-1.0); EOS # 0.6 10^3/uL (0.0-0.5); EOS % 8.2 % (0.0-3.0); HEMOGLOBIN 10.6 g/dl (12.0-15.5); LYMPH # 1.9 10^3/uL (1.5-5.0); MEAN CORPUSCULAR HGB CONC 31.2 g/dl (32.0-36.5); MEAN CORPUSCULAR VOLUME 89.7 fl (80.0-96.0); MONO # 0.7 10^3/uL (0.0-0.8); MONO % 9.2 % (2.0-8.0); NEUTROPHILS # 4.2 10^3/uL (1.5-8.5); NEUTROPHILS % 56.5 % (36.0-66.0); PLATELET COUNT, AUTOMATED 231 10^3/uL (150-450); RED BLOOD COUNT 3.79 10^6/uL (4.00-5.40); WHITE BLOOD COUNT 7.5 10^3/uL (4.0-10.0)
[2021-03-26 06:59] LABS: CALCIUM LEVEL 8.6 MG/DL (8.8-10.2); CREATININE FOR GFR 1.04 MG/DL (0.55-1.30); GLOMERULAR FILTRATION RATE 57.2 (>45); POTASSIUM SERUM 4.8 MEQ/L (3.5-5.1)
[2021-03-26] MEDS: DIVALPROEX 500 MG TAB PO SCH ×2 (08:28→20:18)
[2021-03-26] MEDS: FERROUS GLUCONATE 324 MG TAB PO SCH (08:28)
[2021-03-26] MEDS: GABAPENTIN 400MG CAP PO SCH ×3 (08:28→20:17)
[2021-03-26] MEDS: DULoxetine 30 MG CAP (CYMBALTA) PO SCH (08:28)
[2021-03-26] MEDS: ENOXAPARIN 40MG/0.4ML SYRINGE (J1650 PER 10MG) SC SCH (08:28)
[2021-03-26] MEDS: ACETAMINOPHEN 500 MG TAB PO SCH ×3 (08:29→20:17)
[2021-03-26] MEDS: HumaLOG INSULIN (NovoLOG) PER UNIT SC SCH ×4 (08:30→20:18)
[2021-03-26] MEDS: LEVEMIR (INSULIN DETEMIR) 1 UNITS/0.01ML SC SCH ×2 (08:30→20:18)
[2021-03-26] MEDS: busPIRone 5 MG TAB PO SCH ×2 (09:17→20:18)
[2021-03-26] MEDS: LevoFLOXacin 750 MG TABLET PO SCH (10:39)
[2021-03-26 14:00] VITALS: BP 131/77
[2021-03-26] MEDS: metroNIDAZOLE (FLAGYL) 500MG TABLET PO SCH ×2 (14:16→21:22)
[2021-03-26] MEDS ORDERED: FUROSEMIDE 40MG/4ML VIAL (J1940) IV ONE (14:35)
--- NOTE | 2021-03-26 14:44 | IPN ---
PROGRESS NOTE DATE: 03/26/2021 SUBJECTIVE: The patient was seen and examined at the bedside. Chart has been reviewed. She still complains of severe pain bilateral lower extremities, especially when she bears weight and ambulates from the bed to the bedside commode. No fever or chills overnight. Erythema and redness, as well as swelling have improved over the past two days. OBJECTIVE: VITAL SIGNS: Temperature 96.7, pulse 68, respiratory rate 20, blood pressure 125/61, 95% on room air. GENERAL: The patient is awake, alert, and oriented to person, place, and time. NECK: No JVD, thyromegaly, or cervical lymphadenopathy. LUNGS: Clear to auscultation. Air entry is equal. No adventitious breath sounds. HEART: S1, S2. Sinus. Nondisplaced PMI. No carotid bruits. ABDOMEN: Obese, soft, nontender, and nondistended with positive bowel sounds. No hepatosplenomegaly. EXTREMITIES: Bilateral lower extremity erythema is improved. Along the demarcated lines no induration, slight tenderness. DIAGNOSTIC STUDIES: Laboratory data, imaging studies, and microbiology have been reviewed. ASSESSMENT: This is a 60-year-old with super morbid obesity with body mass index (BMI) of 56 admitted on 03/23, due to bilateral lower extremity cellulitis with history of lymphedema, diabetes, hypertension, hypothyroidism, hyperlipidemia, seizure disorder, fibromyalgia, reflux, gait instability with walker at baseline. The patient was treated with ceftaroline 03/23 through 03/24. Methicillin-resistant Staphylococcus aureus (MRSA) screen was negative. White count is normal. The patient remains afebrile with improvement in bilateral lower extremity edema and erythema, but still complains of severe pain. IMPRESSION: 1. Bilateral lower extremity diabetic skin infection/bilateral lower extremity cellulitis in a diabetic. The patient had been on ceftaroline x2. MRSA screen was negative. This has been discontinued. She is currently now on Levaquin and Flagyl. Pharmacy consulted for renal dosing as needed. 2. Type 2 diabetes on Levemir, consistent carbohydrate diet, fingerstick a.c. and h.s. with coverage appears to be stable. 3. Chronic neuropathy on gabapentin and duloxetine. 4. Chronic fibromyalgia on home medications. 5. Hypothyroidism on Synthroid. 6. Seizure disorder on Depakote. 7. Hypertension, stable on Norvasc. Current blood pressure is 125. 8. Hyponatremia. No mental status changes. 9. Chronic lymphedema. The patient may be given Lasix daily. MTDD
[2021-03-26] MEDS: ATORVASTATIN 20 MG TAB PO SCH (20:17)
[2021-03-26] MEDS: traZODone 50 MG TAB PO SCH (20:18)
[2021-03-26] MEDS: LORATADINE 10 MG TAB PO SCH (20:18)
[2021-03-26 22:00] VITALS: BP 126/78
[2021-03-27] MEDS: KETOROLAC 30 MG/ML 1ML VIAL IV SCH ×2 (02:51→08:24)
[2021-03-27] MEDS: metroNIDAZOLE (FLAGYL) 500MG TABLET PO SCH ×3 (05:34→21:47)
[2021-03-27] MEDS: LEVOTHYROXINE 100MCG TABLET (0.1MG) PO SCH (05:34)
[2021-03-27] MEDS: LevoFLOXacin 750 MG TABLET PO SCH (05:34)
[2021-03-27 06:00] VITALS: BP 132/69
[2021-03-27 07:09] LABS: BASO % 0.6 % (0.0-1.0); EOS # 0.6 10^3/uL (0.0-0.5); HEMATOCRIT 34.2 % (36.0-47.0); HEMOGLOBIN 10.7 g/dl (12.0-15.5); LYMPH # 1.7 10^3/uL (1.5-5.0); LYMPH % 23.9 % (24.0-44.0); MEAN CORPUSCULAR HEMOGLOBIN 27.9 pg (27.0-33.0); MEAN CORPUSCULAR HGB CONC 31.3 g/dl (32.0-36.5); MEAN CORPUSCULAR VOLUME 89.3 fl (80.0-96.0); MONO # 0.7 10^3/uL (0.0-0.8); MONO % 9.7 % (2.0-8.0); NEUTROPHILS # 4.1 10^3/uL (1.5-8.5); NEUTROPHILS % 56.8 % (36.0-66.0); PLATELET COUNT, AUTOMATED 235 10^3/uL (150-450); RED BLOOD COUNT 3.83 10^6/uL (4.00-5.40); WHITE BLOOD COUNT 7.2 10^3/uL (4.0-10.0)
[2021-03-27 07:28] LABS: CREATININE FOR GFR 1.13 MG/DL (0.55-1.30); GLOMERULAR FILTRATION RATE 51.9 (>45); POTASSIUM SERUM 5.1 MEQ/L (3.5-5.1)
[2021-03-27] MEDS: DULoxetine 30 MG CAP (CYMBALTA) PO SCH (08:21)
[2021-03-27] MEDS: GABAPENTIN 400MG CAP PO SCH ×3 (08:21→21:47)
[2021-03-27] MEDS: ACETAMINOPHEN 500 MG TAB PO SCH ×3 (08:22→21:00)
[2021-03-27] MEDS: DIVALPROEX 500 MG TAB PO SCH ×2 (08:22→22:03)
[2021-03-27] MEDS: ENOXAPARIN 40MG/0.4ML SYRINGE (J1650 PER 10MG) SC SCH (08:23)
[2021-03-27] MEDS: FERROUS GLUCONATE 324 MG TAB PO SCH (08:23)
[2021-03-27] MEDS: HumaLOG INSULIN (NovoLOG) PER UNIT SC SCH ×4 (08:24→21:49)
[2021-03-27] MEDS: LEVEMIR (INSULIN DETEMIR) 1 UNITS/0.01ML SC SCH ×2 (08:25→21:48)
[2021-03-27] MEDS: busPIRone 5 MG TAB PO SCH ×2 (08:34→21:48)
[2021-03-27] MEDS ORDERED: SODIUM CHLORIDE NASAL 0.65% SPRAY BTL (OCEAN) PRN (08:45)
[2021-03-27] MEDS ORDERED: IBUPROFEN 600MG TAB PO PRN (10:40)
[2021-03-27] MEDS: SODIUM CHLORIDE NASAL 0.65% SPRAY BTL (OCEAN) SCH ×3 (11:07→21:49)
[2021-03-27] MEDS: FEXOFENADINE 60 MG TAB PO SCH (11:08)
--- NOTE | 2021-03-27 11:38 | IPNPDOC ---
Date Seen The patient was seen on 03/27/21. Progress Note pt is medically stable for hospital discharge, but needs continued physical therapy services. pt will be changed to alc/snf status. VS, I&O, 24H, Fishbone Vital Signs/I&O Vital Signs Date Time Temp Pulse Resp B/P (MAP) Pulse Ox O2 Delivery O2 Flow Rate FiO2 03/27/21 06:00 97.4 68 19 132/69 (90) 95 Room Air I&O- Last 24 Hours up to 6 AM 03/27/21 06:00 Intake Total 3250 ml Output Total 3075 ml Balance 175 ml Laboratory Data 24H LABS Laboratory Tests 2 03/26/21 16:43: Bedside Glucose (Misc Panel) 190H 03/26/21 19:55: Bedside Glucose (Misc Panel) 267H 03/27/21 06:18: Immature Granulocyte % (Auto) 1.0, Neutrophils (%) (Auto) 56.8, Lymphocytes (%) (Auto) 23.9L, Monocytes (%) (Auto) 9.7H, Eosinophils (%) (Auto) 8.0H, Basophils (%) (Auto) 0.6, Neutrophils # (Auto) 4.1, Lymphocytes # (Auto) 1.7, Monocytes # (Auto) 0.7, Eosinophils # (Auto) 0.6H, Basophils # (Auto) 0.0, Nucleated Red Blood Cells % (auto) 0.0, Anion Gap 0L, Glomerular Filtration Rate 51.9, Calcium Level 9.0 CBC/BMP Laboratory Tests 03/27/21 06:18 Microbiology Microbiology 03/23/21 Blood Culture - Preliminary, Resulted No Growth after 72 hours. All specime... 03/23/21 Blood Culture - Preliminary, Resulted No Growth after 72 hours. All specime... OVI RATLIFF MD Mar 27, 2021 11:38
[2021-03-27 14:00] VITALS: BP 128/78
[2021-03-27] MEDS: PERCOCET 5MG/325MG TAB PO PRN ×2 (15:30→22:04)
[2021-03-27] MEDS: traZODone 50 MG TAB PO SCH (21:47)
[2021-03-27] MEDS: ATORVASTATIN 20 MG TAB PO SCH (21:48)
[2021-03-27 22:00] VITALS: BP 146/86
[2021-03-28] MEDS: PERCOCET 5MG/325MG TAB PO PRN ×3 (04:27→17:55)
[2021-03-28] MEDS: LevoFLOXacin 750 MG TABLET PO SCH (05:34)
[2021-03-28] MEDS: metroNIDAZOLE (FLAGYL) 500MG TABLET PO SCH ×3 (05:34→21:30)
[2021-03-28] MEDS: LEVOTHYROXINE 100MCG TABLET (0.1MG) PO SCH (05:34)
[2021-03-28 06:00] VITALS: BP 115/80
[2021-03-28 07:03] LABS: BASO % 0.5 % (0.0-1.0); EOS # 0.7 10^3/uL (0.0-0.5); EOS % 8.2 % (0.0-3.0); HEMATOCRIT 33.9 % (36.0-47.0); HEMOGLOBIN 10.6 g/dl (12.0-15.5); LYMPH # 1.9 10^3/uL (1.5-5.0); LYMPH % 23.9 % (24.0-44.0); MEAN CORPUSCULAR HGB CONC 31.3 g/dl (32.0-36.5); MEAN CORPUSCULAR VOLUME 89.7 fl (80.0-96.0); MONO # 0.9 10^3/uL (0.0-0.8); MONO % 11.1 % (2.0-8.0); NEUTROPHILS # 4.4 10^3/uL (1.5-8.5); NEUTROPHILS % 55.7 % (36.0-66.0); PLATELET COUNT, AUTOMATED 232 10^3/uL (150-450); RED BLOOD COUNT 3.78 10^6/uL (4.00-5.40); WHITE BLOOD COUNT 7.9 10^3/uL (4.0-10.0)
[2021-03-28 07:24] LABS: CALCIUM LEVEL 8.9 MG/DL (8.8-10.2); CREATININE FOR GFR 1.29 MG/DL (0.55-1.30); GLOMERULAR FILTRATION RATE 44.6 (>45); POTASSIUM SERUM 5.2 MEQ/L (3.5-5.1)
[2021-03-28] MEDS: ACETAMINOPHEN 500 MG TAB PO SCH ×3 (09:00→20:29)
[2021-03-28] MEDS: FEXOFENADINE 60 MG TAB PO SCH (09:01)
[2021-03-28] MEDS: DIVALPROEX 500 MG TAB PO SCH ×2 (09:01→20:28)
[2021-03-28] MEDS: GABAPENTIN 400MG CAP PO SCH ×3 (09:01→20:28)
[2021-03-28] MEDS: FERROUS GLUCONATE 324 MG TAB PO SCH (09:01)
[2021-03-28] MEDS: ENOXAPARIN 40MG/0.4ML SYRINGE (J1650 PER 10MG) SC SCH (09:01)
[2021-03-28] MEDS: busPIRone 5 MG TAB PO SCH ×2 (09:01→20:28)
[2021-03-28] MEDS: DULoxetine 30 MG CAP (CYMBALTA) PO SCH (09:02)
[2021-03-28] MEDS: LEVEMIR (INSULIN DETEMIR) 1 UNITS/0.01ML SC SCH ×2 (09:03→21:31)
[2021-03-28] MEDS: HumaLOG INSULIN (NovoLOG) PER UNIT SC SCH ×4 (09:03→21:30)
[2021-03-28] MEDS: SODIUM CHLORIDE NASAL 0.65% SPRAY BTL (OCEAN) SCH ×3 (09:04→20:31)
[2021-03-28 14:00] VITALS: BP 112/68
[2021-03-28] MEDS: ATORVASTATIN 20 MG TAB PO SCH (20:28)
[2021-03-28] MEDS: traZODone 50 MG TAB PO SCH (20:28)
[2021-03-28 22:00] VITALS: BP 127/67
[2021-03-29] MEDS: PERCOCET 5MG/325MG TAB PO PRN ×3 (01:00→15:34)
[2021-03-29] MEDS: LevoFLOXacin 750 MG TABLET PO SCH (05:41)
[2021-03-29] MEDS: LEVOTHYROXINE 100MCG TABLET (0.1MG) PO SCH (05:41)
[2021-03-29] MEDS: metroNIDAZOLE (FLAGYL) 500MG TABLET PO SCH ×3 (05:41→22:26)
[2021-03-29 06:00] VITALS: BP 117/58
[2021-03-29 06:59] LABS: BASO % 0.5 % (0.0-1.0); EOS # 0.6 10^3/uL (0.0-0.5); EOS % 8.1 % (0.0-3.0); HEMATOCRIT 33.4 % (36.0-47.0); HEMOGLOBIN 10.5 g/dl (12.0-15.5); LYMPH # 2.1 10^3/uL (1.5-5.0); LYMPH % 26.8 % (24.0-44.0); MEAN CORPUSCULAR HEMOGLOBIN 28.7 pg (27.0-33.0); MEAN CORPUSCULAR HGB CONC 31.4 g/dl (32.0-36.5); MEAN CORPUSCULAR VOLUME 91.3 fl (80.0-96.0); MONO # 0.9 10^3/uL (0.0-0.8); MONO % 11.4 % (2.0-8.0); NEUTROPHILS % 52.3 % (36.0-66.0); PLATELET COUNT, AUTOMATED 204 10^3/uL (150-450); RED BLOOD COUNT 3.66 10^6/uL (4.00-5.40); WHITE BLOOD COUNT 7.7 10^3/uL (4.0-10.0)
[2021-03-29 07:29] LABS: CALCIUM LEVEL 8.5 MG/DL (8.8-10.2); CREATININE FOR GFR 1.09 MG/DL (0.55-1.30); GLOMERULAR FILTRATION RATE 54.1 (>45); POTASSIUM SERUM 4.9 MEQ/L (3.5-5.1)
[2021-03-29] MEDS: ACETAMINOPHEN 500 MG TAB PO SCH ×3 (09:00→20:57)
[2021-03-29] MEDS: FEXOFENADINE 60 MG TAB PO SCH (09:20)
[2021-03-29] MEDS: SODIUM CHLORIDE NASAL 0.65% SPRAY BTL (OCEAN) SCH ×3 (09:21→20:58)
[2021-03-29] MEDS: ENOXAPARIN 40MG/0.4ML SYRINGE (J1650 PER 10MG) SC SCH (09:21)
[2021-03-29] MEDS: DULoxetine 30 MG CAP (CYMBALTA) PO SCH (09:21)
[2021-03-29] MEDS: DIVALPROEX 500 MG TAB PO SCH ×2 (09:21→20:57)
[2021-03-29] MEDS: busPIRone 5 MG TAB PO SCH ×2 (09:21→20:57)
[2021-03-29] MEDS: GABAPENTIN 400MG CAP PO SCH ×3 (09:21→20:58)
[2021-03-29] MEDS: LEVEMIR (INSULIN DETEMIR) 1 UNITS/0.01ML SC SCH ×2 (09:22→22:26)
[2021-03-29] MEDS: HumaLOG INSULIN (NovoLOG) PER UNIT SC SCH ×4 (09:22→22:04)
[2021-03-29] MEDS: FERROUS GLUCONATE 324 MG TAB PO SCH (09:22)
[2021-03-29 14:00] VITALS: BP 119/54
[2021-03-29] MEDS: traZODone 50 MG TAB PO SCH (20:57)
[2021-03-29] MEDS: ATORVASTATIN 20 MG TAB PO SCH (20:58)
[2021-03-29 22:00] VITALS: BP 130/61
[2021-03-30] MEDS: metroNIDAZOLE (FLAGYL) 500MG TABLET PO SCH (05:59)
[2021-03-30] MEDS: LEVOTHYROXINE 100MCG TABLET (0.1MG) PO SCH (05:59)
[2021-03-30] MEDS: PERCOCET 5MG/325MG TAB PO PRN ×2 (05:59→17:03)
[2021-03-30 06:00] VITALS: BP 138/58
[2021-03-30 06:59] LABS: BASO # 0.1 10^3/uL (0.0-0.2); BASO % 0.7 % (0.0-1.0); EOS # 0.7 10^3/uL (0.0-0.5); EOS % 9.6 % (0.0-3.0); HEMATOCRIT 34.3 % (36.0-47.0); HEMOGLOBIN 10.6 g/dl (12.0-15.5); LYMPH # 1.7 10^3/uL (1.5-5.0); LYMPH % 22.9 % (24.0-44.0); MEAN CORPUSCULAR HEMOGLOBIN 28.3 pg (27.0-33.0); MEAN CORPUSCULAR HGB CONC 30.9 g/dl (32.0-36.5); MEAN CORPUSCULAR VOLUME 91.7 fl (80.0-96.0); MONO # 0.7 10^3/uL (0.0-0.8); MONO % 9.9 % (2.0-8.0); NEUTROPHILS # 4.2 10^3/uL (1.5-8.5); NEUTROPHILS % 56.1 % (36.0-66.0); PLATELET COUNT, AUTOMATED 202 10^3/uL (150-450); RED BLOOD COUNT 3.74 10^6/uL (4.00-5.40); WHITE BLOOD COUNT 7.4 10^3/uL (4.0-10.0)
[2021-03-30 07:29] LABS: BLOOD UREA NITROGEN 20 MG/DL (7-18); CALCIUM LEVEL 8.5 MG/DL (8.8-10.2); CARBON DIOXIDE LEVEL 33 MEQ/L (21-32); CHLORIDE LEVEL 99 MEQ/L (98-107); CREATININE FOR GFR 0.84 MG/DL (0.55-1.30); GLOMERULAR FILTRATION RATE > 60.0 (>45); GLUCOSE, FASTING 147 MG/DL (70-100); POTASSIUM SERUM 4.4 MEQ/L (3.5-5.1); SODIUM LEVEL 136 MEQ/L (136-145)
[2021-03-30] MEDS: busPIRone 5 MG TAB PO SCH ×2 (07:52→21:18)
[2021-03-30] MEDS: GABAPENTIN 400MG CAP PO SCH ×3 (07:52→21:18)
[2021-03-30] MEDS: ACETAMINOPHEN 500 MG TAB PO SCH ×3 (07:52→21:18)
[2021-03-30] MEDS: FERROUS GLUCONATE 324 MG TAB PO SCH (07:53)
[2021-03-30] MEDS: DIVALPROEX 500 MG TAB PO SCH ×2 (07:53→21:19)
[2021-03-30] MEDS: DULoxetine 30 MG CAP (CYMBALTA) PO SCH (07:53)
[2021-03-30] MEDS: HumaLOG INSULIN (NovoLOG) PER UNIT SC SCH ×4 (07:54→21:20)
[2021-03-30] MEDS: ENOXAPARIN 40MG/0.4ML SYRINGE (J1650 PER 10MG) SC SCH (07:54)
[2021-03-30] MEDS: FEXOFENADINE 60 MG TAB PO SCH (07:54)
[2021-03-30] MEDS: LEVEMIR (INSULIN DETEMIR) 1 UNITS/0.01ML SC SCH ×2 (07:54→21:19)
[2021-03-30] MEDS: SODIUM CHLORIDE NASAL 0.65% SPRAY BTL (OCEAN) SCH ×3 (07:55→21:20)
[2021-03-30] MEDS ORDERED: MOM 30ML SUSPENSION UDC PO PRN (11:05)
[2021-03-30] MEDS ORDERED: SENOKOT S TAB PO PRN (11:05)
[2021-03-30] MEDS ORDERED: SENOKOT S TAB PO ONE (11:05)
[2021-03-30] MEDS ORDERED: MIRALAX *UNIT DOSE* 17GM PACKET PO PRN (11:05)
[2021-03-30] MEDS ORDERED: MOM 30ML SUSPENSION UDC PO ONE (11:05)
[2021-03-30 14:00] VITALS: BP 126/60
[2021-03-30] MEDS: traZODone 50 MG TAB PO SCH (21:18)
[2021-03-30] MEDS: ATORVASTATIN 20 MG TAB PO SCH (21:19)
[2021-03-31] MEDS: PERCOCET 5MG/325MG TAB PO PRN ×2 (04:23→12:08)
[2021-03-31] MEDS: LEVOTHYROXINE 100MCG TABLET (0.1MG) PO SCH (05:16)
[2021-03-31 06:00] VITALS: BP 124/61
[2021-03-31] MEDS: HumaLOG INSULIN (NovoLOG) PER UNIT SC SCH ×4 (07:30→21:00)
[2021-03-31 08:55] LABS: BASO # 0.1 10^3/uL (0.0-0.2); BASO % 0.9 % (0.0-1.0); EOS # 0.7 10^3/uL (0.0-0.5); EOS % 8.8 % (0.0-3.0); HEMATOCRIT 36.7 % (36.0-47.0); HEMOGLOBIN 11.4 g/dl (12.0-15.5); LYMPH # 2.2 10^3/uL (1.5-5.0); LYMPH % 26.5 % (24.0-44.0); MEAN CORPUSCULAR HEMOGLOBIN 28.6 pg (27.0-33.0); MEAN CORPUSCULAR HGB CONC 31.1 g/dl (32.0-36.5); MONO # 0.8 10^3/uL (0.0-0.8); MONO % 10.2 % (2.0-8.0); NEUTROPHILS # 4.3 10^3/uL (1.5-8.5); NEUTROPHILS % 52.5 % (36.0-66.0); PLATELET COUNT, AUTOMATED 224 10^3/uL (150-450); RED BLOOD COUNT 3.99 10^6/uL (4.00-5.40); WHITE BLOOD COUNT 8.2 10^3/uL (4.0-10.0)
[2021-03-31] MEDS: FERROUS GLUCONATE 324 MG TAB PO SCH (08:56)
[2021-03-31] MEDS: DULoxetine 30 MG CAP (CYMBALTA) PO SCH (08:56)
[2021-03-31] MEDS: ACETAMINOPHEN 500 MG TAB PO SCH ×3 (08:58→21:08)
[2021-03-31] MEDS: DIVALPROEX 500 MG TAB PO SCH ×2 (08:59→21:08)
[2021-03-31] MEDS: FEXOFENADINE 60 MG TAB PO SCH (08:59)
[2021-03-31] MEDS: GABAPENTIN 400MG CAP PO SCH ×3 (08:59→21:08)
[2021-03-31] MEDS: ENOXAPARIN 40MG/0.4ML SYRINGE (J1650 PER 10MG) SC SCH (09:00)
[2021-03-31] MEDS: LEVEMIR (INSULIN DETEMIR) 1 UNITS/0.01ML SC SCH ×2 (09:00→21:09)
[2021-03-31] MEDS: SODIUM CHLORIDE NASAL 0.65% SPRAY BTL (OCEAN) SCH ×3 (09:01→21:10)
[2021-03-31] MEDS: busPIRone 5 MG TAB PO SCH ×2 (09:02→21:07)
[2021-03-31 09:29] LABS: BLOOD UREA NITROGEN 19 MG/DL (7-18); CALCIUM LEVEL 9.3 MG/DL (8.8-10.2); CARBON DIOXIDE LEVEL 32 MEQ/L (21-32); CHLORIDE LEVEL 103 MEQ/L (98-107); CREATININE FOR GFR 0.87 MG/DL (0.55-1.30); GLOMERULAR FILTRATION RATE > 60.0 (>45); GLUCOSE, FASTING 218 MG/DL (70-100); POTASSIUM SERUM 4.5 MEQ/L (3.5-5.1); SODIUM LEVEL 137 MEQ/L (136-145)
[2021-03-31] MEDS: traZODone 50 MG TAB PO SCH (21:08)
[2021-03-31] MEDS: ATORVASTATIN 20 MG TAB PO SCH (21:08)
[2021-04-01] MEDS: LEVOTHYROXINE 100MCG TABLET (0.1MG) PO SCH (05:06)
[2021-04-01 06:00] VITALS: BP 130/76
[2021-04-01] MEDS: FERROUS GLUCONATE 324 MG TAB PO SCH (08:08)
[2021-04-01] MEDS: GABAPENTIN 400MG CAP PO SCH ×3 (08:08→20:52)
[2021-04-01] MEDS: DULoxetine 30 MG CAP (CYMBALTA) PO SCH (08:08)
[2021-04-01] MEDS: FEXOFENADINE 60 MG TAB PO SCH (08:08)
[2021-04-01] MEDS: busPIRone 5 MG TAB PO SCH ×2 (08:08→20:52)
[2021-04-01] MEDS: DIVALPROEX 500 MG TAB PO SCH ×2 (08:08→20:51)
[2021-04-01] MEDS: ACETAMINOPHEN 500 MG TAB PO SCH ×3 (08:09→20:53)
[2021-04-01] MEDS: ENOXAPARIN 40MG/0.4ML SYRINGE (J1650 PER 10MG) SC SCH (08:09)
[2021-04-01] MEDS: LEVEMIR (INSULIN DETEMIR) 1 UNITS/0.01ML SC SCH ×2 (08:09→20:54)
[2021-04-01] MEDS: HumaLOG INSULIN (NovoLOG) PER UNIT SC SCH ×4 (08:10→20:41)
[2021-04-01] MEDS: SODIUM CHLORIDE NASAL 0.65% SPRAY BTL (OCEAN) SCH ×3 (08:10→20:53)
[2021-04-01] MEDS: PERCOCET 5MG/325MG TAB PO PRN ×3 (08:18→23:50)
[2021-04-01] MEDS: FUROSEMIDE 40 MG TAB PO SCH (09:50)
[2021-04-01 15:35] VITALS: BP 134/68
--- NOTE | 2021-04-01 15:55 | IPNPDOC ---
Text Note Date of Service The patient was seen on 04/01/21. NOTE Subjective: Patient is a 64-year-old female with a PMHx of Bilateral LE lymphedema, HTN, DM2, DLP, Hypothyroidism, Seizure disorder, Fibromyalgia, Migraine headaches, Super Morbid Obesity, GERD who presented to the emergency room with complaints of redness of her lower extremities. Patient was admitted to hospital service for further evaluation and treatment of cellulitis. Patient was seen and examined at the bedside. Currently patient denies any chest pain, shortness breath, palpitations, nausea, vomiting, abdominal pain. She does report some worsening of her lower extremity swelling. Reports that the redness, warmth and tenderness of bilateral legs has improved. Objective: Vitals (See below) General: Lying in bed, appears comfortable, AAOx3 HEENT: NC, AT CVS: +S1S2 Lungs: Fair air entry b/l, no evidence of wheezing, rales or rhonchi Abdomen: Soft, nondistended, nontender Extremities: Chronic lymphedema with 1+ pitting edema superimposed, LE erythema / warmth / tenderness has improved bilaterally (regressed from demarkation lines), - Calf tenderness Imaging: CXR 03/23: No acute cardiopulmonary process appreciated. Vascular US 03/23: No evidence for deep venous thrombosis. Assessment and plan: Bilateral LE cellulitis - Clinically patient is improvement of her bilateral lower extremity cellulitis - Physical reveals progression from demarcation lines improvement of erythema, warmth and tenderness - Blood culture 03/23: No growth at 5 days - MRSA screen 03/23: Not detected - s/p Levaquin and Flagyl (Completed 5 day course) DM2 - c/w ISS and Levemir Hypothyroidism - c/w Levothyroxine Chronic Neuropathy / Fibromyalgia - c/w Gabapentin and Duloxetine Seizure disorder - c/w Divalproex HTN - BP well controlled - c/w Amlodipien DLP - c/w Atorvastatin Depression / Insomnia - c/w Buspirone, Trazodone Chronic lymphedema - Will resume Furosemide based on outpatient dosing s/p Hyponatremia DVT prophylaxis - c/w Lovenox Disposition: - c/w ALC status - Awaiting placement VS,Fishbone, I+O VS, Fishbone, I+O Vital Signs Date Time Temp Pulse Resp B/P (MAP) Pulse Ox O2 Delivery O2 Flow Rate FiO2 04/01/21 15:35 134/68 (90) 04/01/21 15:35 20 04/01/21 06:00 97.6 81 96 Room Air I&O- Last 24 Hours up to 6 AM 04/01/21 05:59 Intake Total 2910 ml Output Total 1800 ml Balance 1110 ml BONITA SANTIAGO MD Apr 01, 2021 15:55
[2021-04-01] MEDS: traZODone 50 MG TAB PO SCH (20:51)
[2021-04-01] MEDS: ATORVASTATIN 20 MG TAB PO SCH (20:51)
[2021-04-02] MEDS: LEVOTHYROXINE 100MCG TABLET (0.1MG) PO SCH (05:53)
[2021-04-02 06:00] VITALS: BP 131/70
[2021-04-02 06:37] LABS: BASO # 0.1 10^3/uL (0.0-0.2); BASO % 0.6 % (0.0-1.0); EOS # 0.6 10^3/uL (0.0-0.5); EOS % 7.1 % (0.0-3.0); HEMATOCRIT 34.2 % (36.0-47.0); HEMOGLOBIN 10.7 g/dl (12.0-15.5); LYMPH # 2.4 10^3/uL (1.5-5.0); LYMPH % 30.2 % (24.0-44.0); MEAN CORPUSCULAR HEMOGLOBIN 28.6 pg (27.0-33.0); MEAN CORPUSCULAR HGB CONC 31.3 g/dl (32.0-36.5); MEAN CORPUSCULAR VOLUME 91.4 fl (80.0-96.0); MONO # 0.7 10^3/uL (0.0-0.8); MONO % 9.3 % (2.0-8.0); NEUTROPHILS # 4.1 10^3/uL (1.5-8.5); NEUTROPHILS % 51.8 % (36.0-66.0); PLATELET COUNT, AUTOMATED 199 10^3/uL (150-450); RED BLOOD COUNT 3.74 10^6/uL (4.00-5.40); WHITE BLOOD COUNT 7.9 10^3/uL (4.0-10.0)
[2021-04-02 07:02] LABS: BLOOD UREA NITROGEN 20 MG/DL (7-18); CARBON DIOXIDE LEVEL 30 MEQ/L (21-32); CHLORIDE LEVEL 100 MEQ/L (98-107); CREATININE FOR GFR 0.83 MG/DL (0.55-1.30); GLOMERULAR FILTRATION RATE > 60.0 (>45); GLUCOSE, FASTING 230 MG/DL (70-100); MAGNESIUM LEVEL 1.7 MG/DL (1.8-2.4); POTASSIUM SERUM 4.3 MEQ/L (3.5-5.1); SODIUM LEVEL 137 MEQ/L (136-145)
[2021-04-02] MEDS ORDERED: MAG SULF 1GM/100ML (MAG RUN) 1 GM in IV 1 EA IV ONE (07:30)
[2021-04-02] MEDS: HumaLOG INSULIN (NovoLOG) PER UNIT SC SCH ×4 (08:20→21:26)
[2021-04-02] MEDS: ENOXAPARIN 40MG/0.4ML SYRINGE (J1650 PER 10MG) SC SCH (08:20)
[2021-04-02] MEDS: LEVEMIR (INSULIN DETEMIR) 1 UNITS/0.01ML SC SCH ×2 (08:20→21:26)
[2021-04-02] MEDS: DULoxetine 30 MG CAP (CYMBALTA) PO SCH (08:21)
[2021-04-02] MEDS: GABAPENTIN 400MG CAP PO SCH ×3 (08:22→21:27)
[2021-04-02] MEDS: FERROUS GLUCONATE 324 MG TAB PO SCH (08:22)
[2021-04-02] MEDS: busPIRone 5 MG TAB PO SCH ×2 (08:22→21:27)
[2021-04-02] MEDS: ACETAMINOPHEN 500 MG TAB PO SCH ×3 (08:23→21:00)
[2021-04-02] MEDS: SODIUM CHLORIDE NASAL 0.65% SPRAY BTL (OCEAN) SCH ×3 (08:23→21:27)
[2021-04-02] MEDS: FUROSEMIDE 40 MG TAB PO SCH (08:23)
[2021-04-02] MEDS: DIVALPROEX 500 MG TAB PO SCH ×2 (09:00→21:26)
[2021-04-02] MEDS: FEXOFENADINE 60 MG TAB PO SCH (11:01)
[2021-04-02] MEDS ORDERED: MAGNESIUM OXIDE 400MG TAB (MAG-OX) PO ONE (12:15)
[2021-04-02] MEDS: PERCOCET 5MG/325MG TAB PO PRN ×2 (14:36→21:28)
[2021-04-02] MEDS: ATORVASTATIN 20 MG TAB PO SCH (21:27)
[2021-04-02] MEDS: traZODone 50 MG TAB PO SCH (21:27)
[2021-04-03] MEDS: PERCOCET 5MG/325MG TAB PO PRN ×3 (04:03→18:38)
[2021-04-03] MEDS: LEVOTHYROXINE 100MCG TABLET (0.1MG) PO SCH (05:59)
[2021-04-03 06:00] VITALS: BP 127/64
[2021-04-03 06:51] LABS: BASO # 0.1 10^3/uL (0.0-0.2); BASO % 0.7 % (0.0-1.0); EOS # 0.6 10^3/uL (0.0-0.5); EOS % 7.9 % (0.0-3.0); HEMATOCRIT 33.7 % (36.0-47.0); HEMOGLOBIN 10.6 g/dl (12.0-15.5); LYMPH # 2.3 10^3/uL (1.5-5.0); LYMPH % 27.9 % (24.0-44.0); MEAN CORPUSCULAR HEMOGLOBIN 28.3 pg (27.0-33.0); MEAN CORPUSCULAR HGB CONC 31.5 g/dl (32.0-36.5); MEAN CORPUSCULAR VOLUME 89.9 fl (80.0-96.0); MONO # 0.9 10^3/uL (0.0-0.8); MONO % 10.5 % (2.0-8.0); NEUTROPHILS # 4.2 10^3/uL (1.5-8.5); NEUTROPHILS % 52.1 % (36.0-66.0); PLATELET COUNT, AUTOMATED 211 10^3/uL (150-450); RED BLOOD COUNT 3.75 10^6/uL (4.00-5.40); WHITE BLOOD COUNT 8.1 10^3/uL (4.0-10.0)
[2021-04-03 07:05] LABS: BLOOD UREA NITROGEN 19 MG/DL (7-18); CALCIUM LEVEL 8.9 MG/DL (8.8-10.2); CARBON DIOXIDE LEVEL 32 MEQ/L (21-32); CHLORIDE LEVEL 100 MEQ/L (98-107); CREATININE FOR GFR 0.81 MG/DL (0.55-1.30); GLOMERULAR FILTRATION RATE > 60.0 (>45); GLUCOSE, FASTING 164 MG/DL (70-100); MAGNESIUM LEVEL 1.9 MG/DL (1.8-2.4); POTASSIUM SERUM 4.1 MEQ/L (3.5-5.1); SODIUM LEVEL 136 MEQ/L (136-145)
[2021-04-03] MEDS: HumaLOG INSULIN (NovoLOG) PER UNIT SC SCH ×4 (08:27→22:41)
[2021-04-03] MEDS: ENOXAPARIN 40MG/0.4ML SYRINGE (J1650 PER 10MG) SC SCH (08:27)
[2021-04-03] MEDS: FUROSEMIDE 40 MG TAB PO SCH (08:28)
[2021-04-03] MEDS: busPIRone 5 MG TAB PO SCH ×2 (08:28→22:48)
[2021-04-03] MEDS: FERROUS GLUCONATE 324 MG TAB PO SCH (08:28)
[2021-04-03] MEDS: DIVALPROEX 500 MG TAB PO SCH ×2 (08:28→22:48)
[2021-04-03] MEDS: FEXOFENADINE 60 MG TAB PO SCH (08:28)
[2021-04-03] MEDS: GABAPENTIN 400MG CAP PO SCH ×3 (08:28→22:47)
[2021-04-03] MEDS: SODIUM CHLORIDE NASAL 0.65% SPRAY BTL (OCEAN) SCH ×3 (08:29→22:49)
[2021-04-03] MEDS: DULoxetine 30 MG CAP (CYMBALTA) PO SCH (08:29)
[2021-04-03] MEDS: LEVEMIR (INSULIN DETEMIR) 1 UNITS/0.01ML SC SCH ×2 (08:29→22:48)
[2021-04-03] MEDS: ACETAMINOPHEN 500 MG TAB PO SCH ×3 (08:30→22:47)
[2021-04-03] MEDS ORDERED: LANTINJ4 SC (14:33)
[2021-04-03] MEDS ORDERED: BUSP15TA47 PO (14:33)
[2021-04-03] MEDS ORDERED: TRAZ1TAB14 PO (14:33)
[2021-04-03] MEDS ORDERED: FLUT15.820 NARES (14:33)
[2021-04-03] MEDS ORDERED: LEVO200T31 PO (14:33)
[2021-04-03] MEDS ORDERED: GABA-283 PO (14:33)
[2021-04-03] MEDS ORDERED: MIRA1POW3 PO (14:33)
[2021-04-03] MEDS ORDERED: DEPA1TAB3 PO (14:33)
[2021-04-03] MEDS ORDERED: INSUH10VL SC (14:33)
[2021-04-03] MEDS ORDERED: FERR32TA PO (14:33)
[2021-04-03] MEDS ORDERED: ATOR40TA75 PO (14:33)
[2021-04-03] MEDS ORDERED: OMEP-221 PO (14:33)
[2021-04-03] MEDS ORDERED: FURO40TA2 PO (14:33)
[2021-04-03] MEDS ORDERED: DULO60CA35 PO (14:33)
[2021-04-03] MEDS ORDERED: ACET-683 PO (14:33)
[2021-04-03] MEDS: traZODone 50 MG TAB PO SCH (22:47)
[2021-04-03] MEDS: ATORVASTATIN 20 MG TAB PO SCH (22:48)
[2021-04-04] MEDS: PERCOCET 5MG/325MG TAB PO PRN ×2 (03:36→10:51)
[2021-04-04 05:51] LABS: BASO # 0.1 10^3/uL (0.0-0.2); BASO % 0.6 % (0.0-1.0); EOS # 0.7 10^3/uL (0.0-0.5); EOS % 8.9 % (0.0-3.0); HEMOGLOBIN 10.8 g/dl (12.0-15.5); LYMPH # 2.3 10^3/uL (1.5-5.0); LYMPH % 28.5 % (24.0-44.0); MEAN CORPUSCULAR HEMOGLOBIN 28.7 pg (27.0-33.0); MEAN CORPUSCULAR HGB CONC 31.8 g/dl (32.0-36.5); MEAN CORPUSCULAR VOLUME 90.4 fl (80.0-96.0); MONO # 0.8 10^3/uL (0.0-0.8); MONO % 9.5 % (2.0-8.0); NEUTROPHILS # 4.2 10^3/uL (1.5-8.5); NEUTROPHILS % 51.9 % (36.0-66.0); PLATELET COUNT, AUTOMATED 211 10^3/uL (150-450); RED BLOOD COUNT 3.76 10^6/uL (4.00-5.40); WHITE BLOOD COUNT 8.1 10^3/uL (4.0-10.0)
[2021-04-04] MEDS: LEVOTHYROXINE 100MCG TABLET (0.1MG) PO SCH (05:57)
[2021-04-04 06:00] VITALS: BP 137/92
[2021-04-04 06:20] LABS: BLOOD UREA NITROGEN 20 MG/DL (7-18); CALCIUM LEVEL 8.9 MG/DL (8.8-10.2); CARBON DIOXIDE LEVEL 33 MEQ/L (21-32); CHLORIDE LEVEL 102 MEQ/L (98-107); CREATININE FOR GFR 0.85 MG/DL (0.55-1.30); GLOMERULAR FILTRATION RATE > 60.0 (>45); GLUCOSE, FASTING 168 MG/DL (70-100); MAGNESIUM LEVEL 1.9 MG/DL (1.8-2.4); POTASSIUM SERUM 4.1 MEQ/L (3.5-5.1); SODIUM LEVEL 140 MEQ/L (136-145)
[2021-04-04] MEDS ORDERED: PERCOCET PO (08:27)
[2021-04-04] MEDS: FERROUS GLUCONATE 324 MG TAB PO SCH (08:40)
[2021-04-04] MEDS: GABAPENTIN 400MG CAP PO SCH (08:40)
[2021-04-04] MEDS: busPIRone 5 MG TAB PO SCH (08:41)
[2021-04-04] MEDS: FEXOFENADINE 60 MG TAB PO SCH (08:41)
[2021-04-04] MEDS: DULoxetine 30 MG CAP (CYMBALTA) PO SCH (08:41)
[2021-04-04] MEDS: DIVALPROEX 500 MG TAB PO SCH (08:41)
[2021-04-04] MEDS: SODIUM CHLORIDE NASAL 0.65% SPRAY BTL (OCEAN) SCH (08:42)
[2021-04-04] MEDS: HumaLOG INSULIN (NovoLOG) PER UNIT SC SCH (08:42)
[2021-04-04] MEDS: ENOXAPARIN 40MG/0.4ML SYRINGE (J1650 PER 10MG) SC SCH (08:42)
[2021-04-04] MEDS: FUROSEMIDE 40 MG TAB PO SCH (08:42)
[2021-04-04] MEDS: ACETAMINOPHEN 500 MG TAB PO SCH (08:43)
[2021-04-04] MEDS: LEVEMIR (INSULIN DETEMIR) 1 UNITS/0.01ML SC SCH (08:43)
--- NOTE | 2021-04-04 10:35 | DS.PDOC ---
Discharge Summary General Date of Admission Mar 23, 2021 at 16:16 Date of Discharge 04/04/2021 Discharge Summary PROCEDURES PERFORMED DURING STAY: [None]. ADMITTING DIAGNOSES / DISCHARGE DIAGNOSES: Bilateral LE cellulitis DM2 Hypothyroidism Chronic Neuropathy / Fibromyalgia Seizure disorder HTN DLP Depression / Insomnia Chronic lymphedema s/p Hyponatremia DVT prophylaxis COMPLICATIONS/CHIEF COMPLAINT: Cellulitis HISTORY OF PRESENT ILLNESS: Patient is a 64-year-old female with a PMHx of Bilateral LE lymphedema, HTN, DM2, DLP, Hypothyroidism, Seizure disorder, Fibromyalgia, Migraine headaches, Super Morbid Obesity, GERD who presented to the emergency room with complaints of redness of her lower extremities. Patient was admitted to hospital service for further evaluation and treatment of cellulitis. Patient was seen and examined at the bedside. Currently, she was seen with a [facility] tray in front of her denies any nausea, vomiting, chest pain, shortness breath, palpitations, abdominal pain, diarrhea, or urinary discomfort. Reports that her lower extremity swelling has had improvement and she continues to work with physical therapy. HOSPITAL COURSE: Bilateral LE cellulitis - Clinically patient is improvement of her bilateral lower extremity cellulitis - Physical reveals progression from demarcation lines improvement of erythema, warmth and tenderness - Blood culture 03/23: No growth at 5 days - MRSA screen 03/23: Not detected - s/p Levaquin and Flagyl (Completed 5 day course) DM2 - c/w ISS and Levemir Hypothyroidism - c/w Levothyroxine Chronic Neuropathy / Fibromyalgia - c/w Gabapentin and Duloxetine - c/w Percocet PRN Seizure disorder - c/w Divalproex HTN - BP well controlled - c/w Amlodipien DLP - c/w Atorvastatin Depression / Insomnia - c/w Buspirone, Trazodone Chronic lymphedema - c/w Furosemide based on outpatient dosing s/p Hyponatremia DVT prophylaxis - c/w Lovenox DISCHARGE MEDICATIONS: Please see below. ALLERGIES: Please see below. PHYSICAL EXAMINATION ON DISCHARGE: Vitals (See below) General: Patient remains laying in bed eating breakfast, comfortable without any acute distress oriented 3 HEENT: NC, AT CVS: +S1S2 Lungs: Air entry appears to be fair bilaterally without evidence of wheezing, crackles, rhonchi Abdomen: Abdomen remains soft, nondistended, nontender, obese Extremities: Lower extremities don't reveal chronic lymph edema, there is trace pitting edema on top of that, area of erythema has had significant improvement LABORATORY DATA: Please see below. IMAGING: CXR 03/23: No acute cardiopulmonary process appreciated. Vascular US 03/23: No evidence for deep venous thrombosis. ACTIVITY: [As tolerated]. DISCHARGE PLAN: Follow-up with primary care provider within the next 7 days Remain compliant with treatment plan and medications Return to the ER if you experience any problems DISPOSITION: Subacute rehabilitation facility/swing bed at [facility] DISCHARGE CONDITION: [Stable]. TIME SPENT ON DISCHARGE: 35 minutes. Vital Signs/I&Os Vital Signs Date Time Temp Pulse Resp B/P (MAP) Pulse Ox O2 Delivery O2 Flow Rate FiO2 04/04/21 06:00 97.6 61 18 137/92 (107) 97 Room Air l I&O- Last 24 Hours up to 6 AM 04/04/21 06:00 Intake Total 1830 ml Output Total 4250 ml Balance -2420 ml Laboratory Data Labs 24H Laboratory Tests 2 04/03/21 11:52: Bedside Glucose (Misc Panel) 304H 04/03/21 16:17: Bedside Glucose (Misc Panel) 183H 04/03/21 22:40: Bedside Glucose (Misc Panel) 220H 04/04/21 05:36: Immature Granulocyte % (Auto) 0.6, Neutrophils (%) (Auto) 51.9, Lymphocytes (%) (Auto) 28.5, Monocytes (%) (Auto) 9.5H, Eosinophils (%) (Auto) 8.9H, Basophils (%) (Auto) 0.6, Neutrophils # (Auto) 4.2, Lymphocytes # (Auto) 2.3, Monocytes # (Auto) 0.8, Eosinophils # (Auto) 0.7H, Basophils # (Auto) 0.1, Nucleated Red Blood Cells % (auto) 0.0, Anion Gap 5L, Glomerular Filtration Rate > 60.0, Calcium Level 8.9, Magnesium Level 1.9 CBC/BMP Laboratory Tests 04/04/21 05:36 FSBS Laboratory Tests Test 04/03/21 11:52 04/03/21 16:17 04/03/21 22:40 Range/Units Bedside Glucose (Misc Panel) 304 183 220 80-115 MG/DL Discharge Medications Scheduled Acetaminophen (Acetaminophen) 500 Mg Tablet, 1,000 MG PO TID Atorvastatin Calcium (Atorvastatin Calcium) 40 Mg Tablet, 40 MG PO QHS Buspirone HCl (Buspirone HCl) 15 Mg Tablet, 15 MG PO BID Divalproex Sodium (Depakote) 500 Mg Tablet.dr, 500 MG PO BID Duloxetine HCl (Duloxetine HCl) 60 Mg Capsule.dr, 120 MG PO DAILY Ferrous Gluconate (Ferrous Gluconate) 324 Mg Tablet, 324 MG PO DAILY Fluticasone Propionate (Fluticasone Propionate) 15.8 Ml [place].susp, 1 SPRAY NARES DAILY Furosemide (Furosemide) 40 Mg Tablet, 40 MG PO DAILY Gabapentin (Gabapentin) 400 Mg Capsule, 400 MG PO TID Insulin Glargine,Hum.rec.anlog (Lantus Solostar) 100 Unit/1 Ml Insuln.pen, 30 UNITS SC BID 1 month supply Insulin Human Lispro (Novolog) 100 Unit/1 Ml Vial, 1 UNITS SC AC based on insulin sliding scale from [facility] Levothyroxine Sodium (Levoxyl) 200 Mcg Tablet, 200 MCG PO DAILY Omeprazole (Omeprazole) 40 Mg Capsule.dr, 40 MG PO DAILY Trazodone HCl (Trazodone HCl) 150 Mg Tablet, 150 MG PO QHS Scheduled PRN Oxycodone/Acetaminophen (Oxycodone-Acetaminophen 5-325) 1 Each Tablet, 1 TAB PO Q6HP PRN for SEVERE PAIN (PS 8-10) Polyethylene Glycol 3350 (Miralax) 17 Gm Powd.pack, 1 PKT PO DAILYPRN PRN for CONSTIPATION Allergies Coded Allergies: shellfish derived (Verified Allergy, Severe, ANAPHYLAXIS, 12/03/20) atorvastatin (Verified Adverse Reaction, Intermediate, ELEVATED LIVER ENZYMES, 12/03/20) quetiapine (Verified Adverse Reaction, Intermediate, SEIZURES, 12/03/20) Hydrolyzed [place] Oil (Verified Adverse Reaction, Mild, DIARRHEA, 12/03/20) ibuprofen (Verified Adverse Reaction, Mild, UPSET STOMACH, 12/03/20) metformin (Verified Adverse Reaction, Mild, DIARRHEA, 12/03/20) BONITA SANTIAGO MD Apr 04, 2021 10:35
== END 2021-04-04 11:18 | DRG 383 ==
LOC: M ED 13:54 → EDBD 13:54 → M ED INP 16:16 → M MSPAV 17:45
PROVIDERS: ADMIT Internal Medicine Nephrology; ATTEND Internal Medicine
DX: L03.115 Cellulitis of right lower limb (principal); E11.40 Type 2 diabetes mellitus with diabetic neuropathy, unspecified; E87.1 Hypo-osmolality and hyponatremia; E03.9 Hypothyroidism, unspecified; M79.7 Fibromyalgia; G40.909 Epilepsy, unspecified, not intractable, without status epilepticus; F32.9 Major depressive disorder, single episode, unspecified; G47.00 Insomnia, unspecified; I89.0 Lymphedema, not elsewhere classified; I10 Essential (primary) hypertension; G43.909 Migraine, unspecified, not intractable, without status migrainosus; K21.9 Gastro-esophageal reflux disease without esophagitis; Z79.899 Other long term (current) drug therapy; Z79.4 Long term (current) use of insulin; Z91.013 Allergy to seafood; Z88.6 Allergy status to analgesic agent; Z88.8 Allergy status to other drugs, medicaments and biological substances; E78.5 Hyperlipidemia, unspecified; L03.116 Cellulitis of left lower limb

== ENCOUNTER → 2021-04-30 | Outpatient (CLI) | payer OTHER ==
[~2021-04-30] MED LIST changes: +DULO60CA35 PO; +EXCETAB33 PO; +FLUT15.820 NARES; +LEVO200T31 PO; +LORA-622 PO; +MILKSUS3 PO; +MIRA1POW3 PO
--- NOTE | 2021-04-30 16:34 | REP ---
INDICATION: TYPE 2 DIABETES MELLITUS WITH HYPERGLYCEMIA. COMPARISON: 06/14/2015 TECHNIQUE: Five views FINDINGS: There is moderate disc space narrowing at every level. There is a grade 1 L4 upon L5 spondylolisthesis. Hypertrophic degenerative facet joint changes are seen at every level bilaterally particularly L4-5 and L5-S1. The exam is limited due to the patient's condition as per the note placed in the [employer] power jacket by the technologist performing the exam. Vertebral body height is within normal limits. IMPRESSION: Chronic changes increased from the prior exam. Exam is limited. Consider lumbar spine CT <Electronically signed by Simeon Haney > 04/30/21 [id number]
[2021-04-30 17:26] LABS: BASO # 0.1 10^3/uL (0.0-0.2); BASO % 0.5 % (0.0-1.0); EOS # 0.2 10^3/uL (0.0-0.5); EOS % 2.4 % (0.0-3.0); HEMATOCRIT 40.3 % (36.0-47.0); HEMOGLOBIN 12.6 g/dl (12.0-15.5); LYMPH # 2.2 10^3/uL (1.5-5.0); LYMPH % 22.5 % (24.0-44.0); MEAN CORPUSCULAR HEMOGLOBIN 28.5 pg (27.0-33.0); MEAN CORPUSCULAR HGB CONC 31.3 g/dl (32.0-36.5); MEAN CORPUSCULAR VOLUME 91.2 fl (80.0-96.0); MONO % 10.2 % (2.0-8.0); NEUTROPHILS # 6.3 10^3/uL (1.5-8.5); NEUTROPHILS % 63.9 % (36.0-66.0); PLATELET COUNT, AUTOMATED 279 10^3/uL (150-450); RED BLOOD COUNT 4.42 10^6/uL (4.00-5.40); WHITE BLOOD COUNT 9.8 10^3/uL (4.0-10.0)
[2021-04-30 18:19] LABS: ALBUMIN 3.3 GM/DL (3.2-5.2); ALT/SGPT 19 U/L (12-78); BILIRUBIN,TOTAL 0.2 MG/DL (0.2-1.0); BLOOD UREA NITROGEN 14 MG/DL (7-18); CALCIUM LEVEL 9.5 MG/DL (8.8-10.2); CARBON DIOXIDE LEVEL 30 MEQ/L (21-32); CHLORIDE LEVEL 101 MEQ/L (98-107); CHOLESTEROL LEVEL 129 MG/DL (<200); CPK CREATINE PHOSPHOKINASE 31 U/L (26-192); CREATININE FOR GFR 0.86 MG/DL (0.55-1.30); FREE T4 1.28 NG/DL (0.76-1.46); GLOMERULAR FILTRATION RATE > 60.0 (>45); GLUCOSE, FASTING 166 MG/DL (70-100); HDL CHOLESTEROL 60 MG/DL (>40); LDL CHOLESTEROL 45 MG/DL (<100); NON-HDL-C 69 MG/DL; NT-PRO BNP 195 PG/ML (<125); SODIUM LEVEL 138 MEQ/L (136-145); TOTAL PROTEIN 7.3 GM/DL (6.4-8.2); TRIGLYCERIDES LEVEL 119 MG/DL (<150); VALPROIC ACID (DEPAKOTE) 63.6 UG/ML (50.0-100.0)
[2021-04-30 20:20] LABS: HEMOGLOBIN A1c 8.5 %
== END ==
LOC: M PLALAB 15:11
PROVIDERS: ATTEND Physician Assistant Medical
DX: E11.65 Type 2 diabetes mellitus with hyperglycemia (principal); I11.0 Hypertensive heart disease with heart failure; E03.9 Hypothyroidism, unspecified; E78.00 Pure hypercholesterolemia, unspecified; I50.9 Heart failure, unspecified; M54.41 Lumbago with sciatica, right side; M43.16 Spondylolisthesis, lumbar region

== ENCOUNTER 2021-05-18 20:00 | Emergency (ER) | payer MEDICAID ==
[~2021-05-18] VITALS: Ht 154.9 cm; Wt 122.3 kg
[2021-05-18] MEDS ORDERED: SUMAtriptan SUCCINATE 25 MG TAB PO ONE (20:50)
[2021-05-18] MEDS ORDERED: PROCHLORPERAZINE 5 MG TAB (S0183) PO ONE (22:00)
[2021-05-18] MEDS ORDERED: diphenhydrAMINE 25MG CAP PO ONE (22:00)
[2021-05-18 22:28] VITALS: BP 120/59
== END 2021-05-19 01:58 | disposition home or self-care (01) ==
LOC: M ED 20:00
DX: G43.909 Migraine, unspecified, not intractable, without status migrainosus (principal); I25.2 Old myocardial infarction; I25.10 Atherosclerotic heart disease of native coronary artery without angina pectoris; E11.9 Type 2 diabetes mellitus without complications; M79.7 Fibromyalgia; R56.9 Unspecified convulsions; R42 Dizziness and giddiness; E03.9 Hypothyroidism, unspecified; K21.9 Gastro-esophageal reflux disease without esophagitis; F31.9 Bipolar disorder, unspecified; F41.9 Anxiety disorder, unspecified; Z88.6 Allergy status to analgesic agent; Z88.8 Allergy status to other drugs, medicaments and biological substances; Z79.899 Other long term (current) drug therapy

== ENCOUNTER 2021-05-26 10:14 | Emergency (ER) | payer MEDICAID ==
[~2021-05-26] VITALS: Ht 154.9 cm; Wt 114.5 kg
[2021-05-26] MEDS ORDERED: MORPHINE 4 MG/ML 1ML VIAL/SYRINGE (J2270) IV ONE (10:30)
[2021-05-26 10:42] LABS: BASO % 0.5 % (0.0-1.0); EOS # 0.3 10^3/uL (0.0-0.5); EOS % 3.9 % (0.0-3.0); HEMATOCRIT 38.5 % (36.0-47.0); HEMOGLOBIN 11.9 g/dl (12.0-15.5); LYMPH # 1.5 10^3/uL (1.5-5.0); LYMPH % 19.5 % (24.0-44.0); MEAN CORPUSCULAR HEMOGLOBIN 28.6 pg (27.0-33.0); MEAN CORPUSCULAR HGB CONC 30.9 g/dl (32.0-36.5); MEAN CORPUSCULAR VOLUME 92.5 fl (80.0-96.0); MONO # 0.8 10^3/uL (0.0-0.8); MONO % 10.6 % (2.0-8.0); NEUTROPHILS % 64.9 % (36.0-66.0); PLATELET COUNT, AUTOMATED 256 10^3/uL (150-450); RED BLOOD COUNT 4.16 10^6/uL (4.00-5.40); WHITE BLOOD COUNT 7.8 10^3/uL (4.0-10.0)
[2021-05-26 11:04] LABS: ERYTHROCYTE SEDIMENTATION RATE 49 mm/hr (0-30)
[2021-05-26 11:15] LABS: C REACTIVE PROTEIN QUANTITATIV 0.82 MG/DL (0.00-0.30); CALCIUM LEVEL 9.1 MG/DL (8.8-10.2); CREATININE FOR GFR 1.11 MG/DL (0.55-1.30); POTASSIUM SERUM 4.5 MEQ/L (3.5-5.1)
--- NOTE | 2021-05-26 11:48 | REP ---
INDICATION: swelling, pain, eval for DVT. COMPARISON: None. TECHNIQUE: 2D, duplex Doppler and color ultrasound evaluation of the lower extremity venous system was performed. FINDINGS: Sequential examination of the deep venous system of the right lower extremity reveals no evidence of deep venous thrombosis. The calf veins were not examined due to extreme edema. IMPRESSION: No evidence of deep venous thrombosis of the right lower extremity. <Electronically signed by Darinel Cardozo > 05/26/21 [id number]
[2021-05-26] MEDS ORDERED: CEPH500C PO (12:02)
[2021-05-26 12:51] VITALS: BP 140/76
== END 2021-05-26 12:45 | disposition home or self-care (01) ==
LOC: M ED 10:14 → EDBD 10:14 → M ED 12:45
DX: L03.115 Cellulitis of right lower limb (principal); L03.116 Cellulitis of left lower limb; E78.5 Hyperlipidemia, unspecified; E11.9 Type 2 diabetes mellitus without complications; F43.10 Post-traumatic stress disorder, unspecified; M79.7 Fibromyalgia; I10 Essential (primary) hypertension; Z79.4 Long term (current) use of insulin; Z88.6 Allergy status to analgesic agent; Z88.8 Allergy status to other drugs, medicaments and biological substances; Z91.013 Allergy to seafood
CPT/HCPCS: 36415; 80048; 85025; 85652; 86140; 93970; 96374; 99284; J2270

== ENCOUNTER → 2021-05-27 | Outpatient (CLI) | payer MEDICAID, OTHER ==
[~2021-05-27] MED LIST changes: +CEPH500C PO
[2021-05-27 18:11] LABS: BASO # 0.1 10^3/uL (0.0-0.2); BASO % 0.8 % (0.0-1.0); EOS # 0.3 10^3/uL (0.0-0.5); EOS % 4.1 % (0.0-3.0); HEMATOCRIT 41.8 % (36.0-47.0); HEMOGLOBIN 13.1 g/dl (12.0-15.5); LYMPH # 1.7 10^3/uL (1.5-5.0); LYMPH % 21.1 % (24.0-44.0); MEAN CORPUSCULAR HEMOGLOBIN 28.8 pg (27.0-33.0); MEAN CORPUSCULAR HGB CONC 31.3 g/dl (32.0-36.5); MEAN CORPUSCULAR VOLUME 91.9 fl (80.0-96.0); MONO # 0.8 10^3/uL (0.0-0.8); MONO % 9.9 % (2.0-8.0); NEUTROPHILS # 5.2 10^3/uL (1.5-8.5); NEUTROPHILS % 63.3 % (36.0-66.0); PLATELET COUNT, AUTOMATED 266 10^3/uL (150-450); RED BLOOD COUNT 4.55 10^6/uL (4.00-5.40); WHITE BLOOD COUNT 8.3 10^3/uL (4.0-10.0)
[2021-05-27 18:42] LABS: ALBUMIN 3.2 GM/DL (3.2-5.2); ALT/SGPT 20 U/L (12-78); BILIRUBIN,TOTAL 0.3 MG/DL (0.2-1.0); BLOOD UREA NITROGEN 18 MG/DL (7-18); C REACTIVE PROTEIN QUANTITATIV 1.34 MG/DL (0.00-0.30); CALCIUM LEVEL 9.7 MG/DL (8.8-10.2); CARBON DIOXIDE LEVEL 32 MEQ/L (21-32); CHLORIDE LEVEL 96 MEQ/L (98-107); CREATININE FOR GFR 0.93 MG/DL (0.55-1.30); GLOMERULAR FILTRATION RATE > 60.0 (>45); GLUCOSE, FASTING 286 MG/DL (70-100); NT-PRO BNP 177 PG/ML (<125); POTASSIUM SERUM 4.4 MEQ/L (3.5-5.1); SODIUM LEVEL 135 MEQ/L (136-145); TOTAL PROTEIN 7.6 GM/DL (6.4-8.2)
== END ==
LOC: M PLALAB 15:44
PROVIDERS: ATTEND Physician Assistant Medical
DX: I50.43 Acute on chronic combined systolic (congestive) and diastolic (congestive) heart failure (principal); L03.818 Cellulitis of other sites

== ENCOUNTER 2021-06-03 04:38 | Emergency (ER) | payer MEDICAID ==
[~2021-06-03] VITALS: Ht 154.9 cm; Wt 116.8 kg
[2021-06-03 05:20] LABS: BASO % 0.5 % (0.0-1.0); EOS # 0.3 10^3/uL (0.0-0.5); EOS % 4.1 % (0.0-3.0); HEMATOCRIT 36.3 % (36.0-47.0); HEMOGLOBIN 11.7 g/dl (12.0-15.5); LYMPH # 1.9 10^3/uL (1.5-5.0); LYMPH % 24.5 % (24.0-44.0); MEAN CORPUSCULAR HEMOGLOBIN 29.3 pg (27.0-33.0); MEAN CORPUSCULAR HGB CONC 32.2 g/dl (32.0-36.5); MEAN CORPUSCULAR VOLUME 90.8 fl (80.0-96.0); MONO # 0.8 10^3/uL (0.0-0.8); MONO % 11.1 % (2.0-8.0); NEUTROPHILS # 4.5 10^3/uL (1.5-8.5); NEUTROPHILS % 59.4 % (36.0-66.0); PLATELET COUNT, AUTOMATED 233 10^3/uL (150-450); WHITE BLOOD COUNT 7.5 10^3/uL (4.0-10.0)
[2021-06-03 06:04] LABS: ALT/SGPT 18 U/L (12-78); BILIRUBIN,DIRECT < 0.1 MG/DL (0.0-0.2); BILIRUBIN,TOTAL 0.3 MG/DL (0.2-1.0); BLOOD UREA NITROGEN 17 MG/DL (7-18); CALCIUM LEVEL 8.6 MG/DL (8.8-10.2); CARBON DIOXIDE LEVEL 32 MEQ/L (21-32); CHLORIDE LEVEL 98 MEQ/L (98-107); CK-MB VALUE MASS < 1.0 NG/ML (<3.6); CPK CREATINE PHOSPHOKINASE 28 U/L (26-192); CREATININE FOR GFR 0.94 MG/DL (0.55-1.30); GLOMERULAR FILTRATION RATE > 60.0 (>45); GLUCOSE, FASTING 275 MG/DL (70-100); LIPASE 46 U/L (73-393); MB/CK RELATIVE INDEX 3.57 (< OR =4); POTASSIUM SERUM 3.7 MEQ/L (3.5-5.1); SODIUM LEVEL 137 MEQ/L (136-145); TOTAL PROTEIN 7.1 GM/DL (6.4-8.2); TROPONIN I < 0.02 NG/ML (< 0.10)
--- NOTE | 2021-06-03 08:18 | REP ---
INDICATION: CHEST PAIN. COMPARISON: 03/23/2021 FINDINGS: The technique utilized in obtaining the radiograph has magnified the cardiac silhouette and accentuated the interstitial markings. The superior mediastinal structures are midline. The cardiac silhouette is unremarkable in size, shape, and position. The diaphragmatic surfaces of the lungs are regular, and the costophrenic angles are clear. The pulmonary bullock are clear. The imaged osseous structures are intact. There is unchanged persistent elevation of the diaphragmatic surface of the right lung. IMPRESSION: There is no acute cardiopulmonary disease. <Electronically signed by Simeon Haney > 06/03/21 [id number]
[2021-06-03 11:26] LABS: CK-MB VALUE MASS < 1.0 NG/ML (<3.6); CPK CREATINE PHOSPHOKINASE 24 U/L (26-192); MB/CK RELATIVE INDEX 4.17 (< OR =4); TROPONIN I < 0.02 NG/ML (< 0.10)
[2021-06-03 13:00] VITALS: BP 157/79
--- NOTE | 2021-06-04 18:52 | ECGEPIP ---
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
--- NOTE | 2021-06-04 18:54 | ECGEPIP ---
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
== END 2021-06-03 18:19 | disposition home or self-care (01) ==
LOC: M ED 04:38
DX: R07.9 Chest pain, unspecified (principal); E78.5 Hyperlipidemia, unspecified; I10 Essential (primary) hypertension; J45.909 Unspecified asthma, uncomplicated; Z88.6 Allergy status to analgesic agent; Z88.8 Allergy status to other drugs, medicaments and biological substances; Z91.013 Allergy to seafood

== ENCOUNTER → 2021-06-11 | Outpatient (REF) | payer MEDICAID, OTHER ==
[2021-06-11 10:43] LABS: BASO # 0.1 10^3/uL (0.0-0.2); BASO % 0.8 % (0.0-1.0); EOS # 0.4 10^3/uL (0.0-0.5); EOS % 4.7 % (0.0-3.0); HEMATOCRIT 40.5 % (36.0-47.0); HEMOGLOBIN 12.7 g/dl (12.0-15.5); LYMPH # 1.6 10^3/uL (1.5-5.0); LYMPH % 20.6 % (24.0-44.0); MEAN CORPUSCULAR HEMOGLOBIN 28.9 pg (27.0-33.0); MEAN CORPUSCULAR HGB CONC 31.4 g/dl (32.0-36.5); MEAN CORPUSCULAR VOLUME 92.3 fl (80.0-96.0); MONO # 0.8 10^3/uL (0.0-0.8); MONO % 9.7 % (2.0-8.0); NEUTROPHILS # 4.9 10^3/uL (1.5-8.5); NEUTROPHILS % 62.9 % (36.0-66.0); PLATELET COUNT, AUTOMATED 279 10^3/uL (150-450); RED BLOOD COUNT 4.39 10^6/uL (4.00-5.40); WHITE BLOOD COUNT 7.8 10^3/uL (4.0-10.0)
[2021-06-11 11:14] LABS: ALBUMIN 3.1 GM/DL (3.2-5.2); BILIRUBIN,TOTAL 0.2 MG/DL (0.2-1.0); C REACTIVE PROTEIN QUANTITATIV 1.07 MG/DL (0.00-0.30); CALCIUM LEVEL 9.3 MG/DL (8.8-10.2); CREATININE FOR GFR 1.09 MG/DL (0.55-1.30); GLOMERULAR FILTRATION RATE 54.1 (>45); TOTAL PROTEIN 7.4 GM/DL (6.4-8.2)
== END ==
PROVIDERS: ATTEND Physician Assistant Medical
DX: I50.43 Acute on chronic combined systolic (congestive) and diastolic (congestive) heart failure (principal); L03.818 Cellulitis of other sites

== ENCOUNTER 2021-06-29 12:42 | Inpatient (IN) | payer MEDICAID ==
[~2021-06-29] VITALS: Ht 154.9 cm; Wt 134.9 kg
--- NOTE | 2021-06-29 15:18 | REP ---
INDICATION: trauma Nontraumatic hip pain. COMPARISON: None. TECHNIQUE: Frontal view of the pelvis with neutral and frog lateral views of the left hip. FINDINGS: Age-related changes to the pelvis and bilateral hips. No evidence for acute fracture or dislocation. No subcutaneous emphysema or foreign body. IMPRESSION: Age-related degenerative changes. No acute fracture or dislocation. <Electronically signed by Petey Walker > 06/29/21 [id number]
--- NOTE | 2021-06-29 15:19 | REP ---
INDICATION: trauma COMPARISON: None. TECHNIQUE: Internal rotation, external rotation, and Y view. FINDINGS: Degenerative changes include cortical irregularity and subtle spurring at the acromioclavicular joint. Small amount of soft tissue calcification are suggested. The subacromial space is decreased to approximately 8 mm. There is no evidence for acute fracture or dislocation. IMPRESSION: Mild arthritic degenerative changes. No evidence for acute fracture or dislocation. <Electronically signed by Petey Walker > 06/29/21 [id number]
--- NOTE | 2021-06-29 16:32 | REP ---
INDICATION: bilateral leg weakness, spinal stenosis. COMPARISON: 07/19/2020 TECHNIQUE: Axial noncontrast images of the lumbosacral spine from mid T12 through mid sacrum with coronal and sagittal reformations. This CT examination was performed using the following dose reduction techniques: Automated exposure control, adjustment of mA and/or kv according to the patient's size, and use of iterative reconstruction technique. FINDINGS: Alignment and lordosis maintained. Vertebral bodies including posterior elements and spinous processes are intact. There is no evidence for acute fracture/compression injury or subluxation. Degenerative changes include endplate sclerosis, osteophytosis, disc space narrowing and facet arthropathy along with ligamentous hypertrophy causes chronic canal stenosis primarily involving L2-3 through L5-S1. Findings are relatively stable when compared to 07/19/2020 examination. IMPRESSION: 1. Moderate chronic canal stenosis primarily involving L2-3 through L5-S1 relatively unchanged in appearance compared to 07/19/2020. 2. No evidence for acute fracture/compression injury or subluxation. <Electronically signed by Petey Walker > 06/29/21 [id number]
[2021-06-29 16:59] LABS: HEMATOCRIT 36.9 % (36.0-47.0); HEMOGLOBIN 11.7 g/dl (12.0-15.5); MEAN CORPUSCULAR HEMOGLOBIN 29.3 pg (27.0-33.0); MEAN CORPUSCULAR HGB CONC 31.7 g/dl (32.0-36.5); MEAN CORPUSCULAR VOLUME 92.3 fl (80.0-96.0); PLATELET COUNT, AUTOMATED 249 10^3/uL (150-450); WHITE BLOOD COUNT 8.2 10^3/uL (4.0-10.0)
[2021-06-29 17:31] LABS: CALCIUM LEVEL 8.5 MG/DL (8.8-10.2); CREATININE FOR GFR 1.01 MG/DL (0.55-1.30); GLOMERULAR FILTRATION RATE 59.1 (>45); POTASSIUM SERUM 4.5 MEQ/L (3.5-5.1)
[2021-06-29] MEDS ORDERED: LANTINJ4 SC (17:40)
[2021-06-29] MEDS ORDERED: ZOLM2.5T20 PO (17:40)
[2021-06-29] MEDS ORDERED: TORS20TA2 PO (17:40)
[2021-06-29] MEDS ORDERED: FLUTISP NARES (17:40)
[2021-06-29] MEDS ORDERED: NYST1POW9 TOP (17:40)
[2021-06-29] MEDS ORDERED: ACET-683 PO (17:40)
[2021-06-29] MEDS ORDERED: ASPI81CH33 PO (17:40)
[2021-06-29] MEDS ORDERED: TRAM50TA2 PO (17:40)
[2021-06-29] MEDS ORDERED: BUSP10TA PO (17:40)
[2021-06-29] MEDS ORDERED: NOVOINJ3 SC (17:40)
[2021-06-29] MEDS ORDERED: LEVO2TA PO (17:40)
[2021-06-29] MEDS ORDERED: DIVA500T94 PO (17:40)
[2021-06-29] MEDS ORDERED: VALS40TA9 PO (17:40)
[2021-06-29] MEDS ORDERED: NORT10CA2 PO (17:40)
[2021-06-29] MEDS ORDERED: DULO60CA35 PO (17:40)
[2021-06-29] MEDS ORDERED: FERR324T2 PO (17:40)
[2021-06-29] MEDS ORDERED: ATOR40TA75 PO (17:40)
[2021-06-29] MEDS ORDERED: MELA1TAB9 PO (17:40)
[2021-06-29] MEDS ORDERED: OMEP-221 PO (17:40)
[2021-06-29] MEDS ORDERED: DICL1GEL3 TOP (17:40)
[2021-06-29] MEDS ORDERED: GABA-283 PO (17:40)
[2021-06-29] MEDS ORDERED: TRAZ150T90 PO (17:40)
[2021-06-29] MEDS ORDERED: HOME MED LIST COMPLETE! XX SCH (17:40)
[2021-06-29 17:46] LABS: RSV AMPLIFICATION NEGATIVE (NEGATIVE)
[2021-06-29] MEDS ORDERED: ACETAMINOPHEN TAB 650MG DOSE (2X325MG) PO PRN (17:55)
[2021-06-29] MEDS ORDERED: DEXTROSE 50% 50 ML SYRINGE IV PRN (17:55)
[2021-06-29] MEDS ORDERED: ZOLMitriptan TABLET 2.5MG PO PRN (17:55)
[2021-06-29] MEDS ORDERED: GLUCAGON INJ 1MG VIAL SC PRN (17:55)
[2021-06-29] MEDS ORDERED: GLUCOSE 4GM CHEW TABLET PO PRN (17:55)
--- NOTE | 2021-06-29 18:17 | HPEPDOC ---
[facility] Medical History & Physical Date of Admission Jun 29, 2021 Date of Service: Jun 29, 2021 History and Physical Chief complaint: Who presented to the ER after she had fallen while at [facility] assisted living History of present illness: Patient is a 60-year-old female with a PMHx of HTN, IDDM2, Asthma, Hypothyroidism, Venous insufficiency w lymphedema, frequent falls and unsteady gait presented to the emergency room after she had fallen at [facility] assisted living. Patient reported that she was in the bathroom and was ambulating to the kitchen with a walker. Reports that she does not have a steady mangle press catcher of her walker. She reported her leg gave out and she fell back and landed on her bottom. Patient denies any head trauma or loss of consciousness. Upon arrival to emergency room, patient reports back soreness and overall generalized weakness. Patient reports urinary incontinence. However, this is an ongoing problem for 3 years. She denies any incontinence of her stool. Patient denies any chest pain. Reports a chronic cough. Denies any palpitations or shortness of breath. Denies any nausea, vomiting, abdominal pain. Does report some diarrhea with loose stools. Denies any urinary discomfort. Denies any fevers but does report some chills. Patient reports her appetite is poor and has had a weight gain. Past Medical History: HTN IDDM2 w neuropathy Asthma Hypothyroidism Venous insufficiency w lymphedema Seizure Disorder Osteoarthritis Unsteady gait / Frequent falls / Uses walker Fibromyalgia / Anxiety / Depression / PTSD Migraine headaches Obesity Past Surgical History: Tubal ligation Patient reports prior exploratory laparoscopy Allergies: See below Medications: See below Family History: - Mother with a history of CHF and father with a history of CK 80 Social History: - Denies the use of alcohol, tobacco or illicit drugs - Denies recent travel or sick contacts - Lives at [facility] assisted living - 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; 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 Review of Systems: 10 point review of systems complete, all negative otherwise stated in HPI Physical exam: - Vitals: BP [169/87], HR [78], RR [20], Sat [94%RA], Temp [97.7F] - General: Lying in bed, Speaking in full sentences, AAOx3 - HEENT: NC, AT, PERRLA, EOMI - CVS: RRR, +S1S2 - Lungs: Fair air entry bilaterally, No appreciable wheezing / rales / rhonchi - Abdomen: Soft, Non-distended, Non-tender, +Obese - Extremities: Lower extremity edema, non-pitting, some erythema noted bilaterally - Neuro: 5/5 strength at bilateral upper and lower extremities bilaterally, CN2- 12 grossly intact - Skin: No visible rashes Labs: See below Imaging: Hip L XR 06/29: Age-related degenerative changes. No acute fracture or dislocation. Should XR 06/29: Mild arthritic degenerative changes. No evidence for acute fracture or dislocation. CT Lumbar spine 06/29: 1. Moderate chronic canal stenosis primarily involving L2-3 through L5-S1 relat ively unchanged in appearance compared to 07/19/2020. 2. No evidence for acute fracture/compression injury or subluxation. EKG: See below Assessment and Plan: Fall - likely mechanical - Reports she was ambulating, fell backward and landed on her bottom - Denies any head trauma / loss of consciousness - Hx of Unsteady gait / Frequent falls / Uses walker - Patient reports back soreness - Physicals without any focal deficits on exam - Imaging noted above - Will start PT / OT - Likely will need transition to skilled from assisted living - PFS consulted HTN - BP well controlled - c/w Valsartan / Torsemide IDDM2 with neuropathy - Will start ISS - Will c/w adjusted dose of long acting insulin - c/w Gabapentin DLP - c/w Atorvastatin Asthma - No evidence of exacerbation - c/w Inhaled therapy as ordered Hypothyroidism - c/w Levothyroxine Venous insufficiency w lymphedema - c/w Torsemide (with hold parameters) Seizure Disorder - c/w Divalproex Osteoarthritis - c/w Tramadol Fibromyalgia / Anxiety / Depression / PTSD - c/w Nortriptyline / Duloxetine / Trazodone Migraine headaches - c/w Zolmitriptan Obesity - BMI of 57.0 - Complicating medical care GERD - c/w Omeprazole DVT prophylaxis - Will start Heparin SQ Vital Signs Vital Signs Date Time Temp Pulse Resp B/P (MAP) Pulse Ox O2 Delivery O2 Flow Rate FiO2 06/29/21 12:53 97.7 78 20 169/87 (114) 94 Room Air Laboratory Data Labs 24H Laboratory Tests 2 06/29/21 16:47: Nucleated Red Blood Cells % (auto) 0.0, Anion Gap 7L, Glomerular Filtration Rate 59.1, Calcium Level 8.5L, Coronavirus (COVID-19)(PCR) NEGATIVE, Influenza Type A (RT-PCR) NEGATIVE, Influenza Type B (RT-PCR) NEGATIVE, Respiratory Syncytial Virus (PCR) NEGATIVE CBC/BMP Laboratory Tests 06/29/21 16:47 Home Medications Scheduled Aspirin (Aspirin) 81 Mg Tab.chew, 81 MG PO DAILY Atorvastatin Calcium (Atorvastatin Calcium) 40 Mg Tablet, 40 MG PO QPM Buspirone HCl (Buspirone HCl) 10 Mg Tablet, 10 MG PO BID Divalproex Sodium (Divalproex Sodium) 500 Mg Tablet.dr, 500 MG PO BID Duloxetine HCl (Duloxetine HCl) 60 Mg Capsule.dr, 120 MG PO DAILY Ferrous Sulfate (Ferrous Sulfate) 324 Mg Tablet.dr, 324 MG PO DAILY Fluticasone Propionate (Fluticasone Propionate) 16 Gm Watson.susp, 1 SPRAY NARES BID Gabapentin (Gabapentin) 400 Mg Capsule, 400 MG PO TID Insulin Aspart (Novolog Flexpen) 100 Unit/1 Ml Insuln.pen, 8 UNITS SC TID Insulin Glargine,Hum.rec.anlog (Lantus Solostar) 100 Unit/1 Ml Insuln.pen, 30 UNITS SC BID Levothyroxine Sodium (Synthroid) 200 Mcg Tablet, 200 MCG PO DAILY Melatonin (Melatonin) 5 Mg Tablet, 5 MG PO QHS Nortriptyline HCl (Nortriptyline HCl) 10 Mg Capsule, 10 MG PO DAILY Nystatin (Nystatin Powder) 15 Gm Powder, 1 APPLIC TOP BID APPLY UNDER BREASTS Omeprazole (Omeprazole) 40 Mg Capsule.dr, 40 MG PO DAILY Torsemide (Torsemide) 20 Mg Tablet, 20 MG PO DAILY Trazodone HCl (Trazodone HCl) 150 Mg Tablet, 150 MG PO QHS Valsartan (Valsartan) 40 Mg Tablet, 40 MG PO BID Scheduled PRN Acetaminophen (Acetaminophen) 500 Mg Tablet, 1,000 MG PO Q8H PRN for PAIN LEVEL 1-4 Diclofenac Sodium (Diclofenac Sodium) 1% 100GM Gel..gram., 1 APLCT TOP QID PRN for PAIN APPLY TO AFFCETED AREA Tramadol HCl (Tramadol HCl) 50 Mg Tablet, 50 MG PO Q6H PRN for PAIN LEVEL 4-7 Zolmitriptan (Zolmitriptan) 2.5 Mg Tablet, 2.5 MG PO DAILY PRN for MIGRAINE Allergies Coded Allergies: shellfish derived (Verified Allergy, Severe, ANAPHYLAXIS, 12/03/20) atorvastatin (Verified Adverse Reaction, Intermediate, ELEVATED LIVER ENZYMES, 12/03/20) quetiapine (Verified Adverse Reaction, Intermediate, SEIZURES, 12/03/20) Hydrolyzed Garrard Oil (Verified Adverse Reaction, Mild, DIARRHEA, 12/03/20) ibuprofen (Verified Adverse Reaction, Mild, UPSET STOMACH, 12/03/20) metformin (Verified Adverse Reaction, Mild, DIARRHEA, 12/03/20) BONITA SANTIAGO MD Jun 29, 2021 18:17
[2021-06-29 19:35] VITALS: BP 130/83
[2021-06-29] MEDS: HumaLOG INSULIN (NovoLOG) PER UNIT SC SCH (21:00)
[2021-06-29] MEDS: DIVALPROEX 500 MG TAB PO SCH (21:31)
[2021-06-29] MEDS: VALSARTAN 40MG TABLET (DIOVAN) PO SCH (21:32)
[2021-06-29] MEDS: traZODone 50 MG TAB PO SCH (21:33)
[2021-06-29] MEDS: GABAPENTIN 400MG CAP PO SCH (21:33)
[2021-06-29] MEDS: busPIRone 10 MG TAB PO SCH (21:33)
[2021-06-29] MEDS: ATORVASTATIN 20 MG TAB PO SCH (21:33)
[2021-06-29] MEDS: traMADol 50 MG TAB PO PRN (21:34)
[2021-06-29] MEDS: LEVEMIR (INSULIN DETEMIR) 1 UNITS/0.01ML SC SCH (21:36)
[2021-06-29] MEDS: HEPARIN SOD (PORCINE) 5000UNITS/ML 1ML VIAL/SYRINGE SQ SCH (21:36)
[2021-06-29] MEDS: FLUTICASONE PROP 0.05% NASAL SPRAY 16 GM (FLONASE) NARES SCH (21:37)
[2021-06-29] MEDS: NYSTATIN 100,000 UNITS/GM TOPICAL PWD 15 GM TOP SCH (21:37)
[2021-06-30] MEDS: HEPARIN SOD (PORCINE) 5000UNITS/ML 1ML VIAL/SYRINGE SQ SCH ×3 (05:25→22:00)
[2021-06-30] MEDS: LEVOTHYROXINE 100MCG TABLET (0.1MG) PO SCH (05:25)
[2021-06-30] MEDS: traMADol 50 MG TAB PO PRN ×3 (05:25→22:06)
[2021-06-30 06:00] VITALS: BP 136/70
[2021-06-30] MEDS ORDERED: FLUBLOK(EGG FREE)(QUAD)INFLUENZA VACC 0.5ML SYRINGE 18YRS & OLDER IM ONE (09:00)
[2021-06-30 09:44] LABS: BASO # 0.1 10^3/uL (0.0-0.2); BASO % 0.7 % (0.0-1.0); EOS # 0.4 10^3/uL (0.0-0.5); EOS % 5.6 % (0.0-3.0); HEMATOCRIT 36.6 % (36.0-47.0); HEMOGLOBIN 11.4 g/dl (12.0-15.5); LYMPH # 1.5 10^3/uL (1.5-5.0); LYMPH % 19.5 % (24.0-44.0); MEAN CORPUSCULAR HEMOGLOBIN 28.8 pg (27.0-33.0); MEAN CORPUSCULAR HGB CONC 31.1 g/dl (32.0-36.5); MEAN CORPUSCULAR VOLUME 92.4 fl (80.0-96.0); MONO # 0.8 10^3/uL (0.0-0.8); MONO % 11.2 % (2.0-8.0); NEUTROPHILS # 4.7 10^3/uL (1.5-8.5); NEUTROPHILS % 62.3 % (36.0-66.0); PLATELET COUNT, AUTOMATED 239 10^3/uL (150-450); RED BLOOD COUNT 3.96 10^6/uL (4.00-5.40); WHITE BLOOD COUNT 7.5 10^3/uL (4.0-10.0)
[2021-06-30 10:14] LABS: BLOOD UREA NITROGEN 16 MG/DL (7-18); CALCIUM LEVEL 8.8 MG/DL (8.8-10.2); CARBON DIOXIDE LEVEL 32 MEQ/L (21-32); CHLORIDE LEVEL 101 MEQ/L (98-107); CREATININE FOR GFR 0.88 MG/DL (0.55-1.30); GLOMERULAR FILTRATION RATE > 60.0 (>45); GLUCOSE, FASTING 245 MG/DL (70-100); MAGNESIUM LEVEL 1.8 MG/DL (1.8-2.4); POTASSIUM SERUM 4.2 MEQ/L (3.5-5.1); SODIUM LEVEL 138 MEQ/L (136-145)
[2021-06-30] MEDS: busPIRone 10 MG TAB PO SCH ×2 (10:17→21:57)
[2021-06-30] MEDS: DULoxetine 30MG CAPSULE (CYMBALTA) PO SCH (10:17)
[2021-06-30] MEDS: OMEPRAZOLE 20 MG CAP PO SCH (10:17)
[2021-06-30] MEDS: VALSARTAN 40MG TABLET (DIOVAN) PO SCH ×2 (10:17→21:58)
[2021-06-30] MEDS: TORSEMIDE 20 MG TAB PO SCH (10:18)
[2021-06-30] MEDS: DIVALPROEX 500 MG TAB PO SCH ×2 (10:18→21:57)
[2021-06-30] MEDS: FLUTICASONE PROP 0.05% NASAL SPRAY 16 GM (FLONASE) NARES SCH ×2 (10:18→21:56)
[2021-06-30] MEDS: NYSTATIN 100,000 UNITS/GM TOPICAL PWD 15 GM TOP SCH ×2 (10:18→21:57)
[2021-06-30] MEDS: GABAPENTIN 400MG CAP PO SCH ×3 (10:18→21:59)
[2021-06-30] MEDS: ASPIRIN 81 MG CHEW TABLET PO SCH (10:18)
[2021-06-30] MEDS: NORTRIPTYLINE 10 MG CAP PO SCH (10:18)
[2021-06-30] MEDS: LEVEMIR (INSULIN DETEMIR) 1 UNITS/0.01ML SC SCH ×2 (10:19→21:55)
[2021-06-30] MEDS: HumaLOG INSULIN (NovoLOG) PER UNIT SC SCH ×4 (10:20→21:56)
[2021-06-30 14:00] VITALS: BP 130/69
--- NOTE | 2021-06-30 18:17 | IPNPDOC ---
Date Seen The patient was seen on 06/30/21. Progress Note SUBJECTIVE: Patient is a 60-year-old female with presented to the [facility] ED after having a fall [facility] assisted [facility]. She reports some continued pain in her left shoulder and left hip, but does report that it has improved since yesterday. She did report new suprapubic/umbilical pain upon interview today that began yesterday. She describes the pain as sharp and dull but gets worse around the time she begins to urinate. She says this pain calms down post urination. She was tender to palpation in the lower abdomen. OBJECTIVE PHYSICAL EXAMINATION: VITAL SIGNS: Please see below. GENERAL: 60-year-old, obese, female, lying in bed, no acute distress HEENT: Normocephalic atraumatic, eyes EOMI, PERRLA, tongue somewhat dry CARDIOVASCULAR: Regular rate and rhythm. RESPIRATORY: CTA bilaterally. ABDOMINAL: Normoactive bowel sounds in all quadrants, nontender to palpation in the upper quadrants, tender to palpation below the bellybutton bilaterally EXTREMITIES: Radial pulses 2+, unable to palpate pedal pulses due to swelling and mass LABORATORY DATA, IMAGING STUDIES, MICROBIOLOGY: Please see below. Echocardiogram: . DVT prophylaxis ordered?: Heparin ASSESSMENT AND PLAN: This is a 60-year-old female status post mechanical fall [facility] assisted [facility]. # Fall likely mechanical - Patient reports that while ambulating, she had a pain in her right leg and it gave out, causing her to fall onto her left side - Reports no head trauma or LOC, no focal neuro deficits - Has hx of unsteady gait/ frequent falls - PT/OT - Will likely need placement in assisted living (previously in [facility] skilled living) # HTN - BP well controlled - c/w home valsartan/torsemide # IDDMII with neuropathy - Started on ISS with hypoglycemia protocol - c/w gabapentin # DLP - c/w home atorvastatin # Asthma - No sx of exacerbation at this time - c/w home inhaled therapy as needed # Hypothyroidism - c/w home Levothyroxine # Venous insufficiency with lymphedema - c/w home torsemide with hold parameters # Seizure disorder - c/w home divalproex # Osteoarthritis - c/w home tramadol # Fibromyalgia/Anxiety/Depression/PTSD - c/w home Nortriptyline/Duloxetine/Trazodone # Migraine HAs - c/w home Zolmitriptan # Obesity - BMI 57.0 - Complicates care # GERD - c/w home ompelrazole DVT prophylaxis: Heparin 7500 units SQ q8h VS, I&O, 24H, Fishbone Vital Signs/I&O Vital Signs Date Time Temp Pulse Resp B/P (MAP) Pulse Ox O2 Delivery O2 Flow Rate FiO2 06/30/21 13:25 16 06/30/21 10:17 136/70 06/30/21 06:04 Room Air 06/30/21 06:00 97.9 82 92 I&O- Last 24 Hours up to 6 AM 06/30/21 06:00 Intake Total 540 ml Output Total 1700 ml Balance -1160 ml Laboratory Data 24H LABS Laboratory Tests 2 06/29/21 19:53: Bedside Glucose (Misc Panel) 224H 06/30/21 09:32: Immature Granulocyte % (Auto) 0.7, Neutrophils (%) (Auto) 62.3, Lymphocytes (%) (Auto) 19.5L, Monocytes (%) (Auto) 11.2H, Eosinophils (%) (Auto) 5.6H, Basophils (%) (Auto) 0.7, Neutrophils # (Auto) 4.7, Lymphocytes # (Auto) 1.5, Monocytes # (Auto) 0.8, Eosinophils # (Auto) 0.4, Basophils # (Auto) 0.1, Nucleated Red Blood Cells % (auto) 0.0, Anion Gap 5L, Glomerular Filtration Rate > 60.0, Calcium Level 8.8, Magnesium Level 1.8 06/30/21 09:48: Bedside Glucose (Misc Panel) 238H 06/30/21 11:30: Bedside Glucose (Misc Panel) 252H 06/30/21 17:11: Bedside Glucose (Misc Panel) 236H CBC/BMP Laboratory Tests 06/30/21 09:32 GME ATTESTATION GME ATTESTATION My faculty preceptor for this patient encounter was physically present during the encounter and was fully available. All aspects of the patient interview, examination, medical decision making process, and medical care plan development were reviewed and approved by the faculty preceptor. The faculty preceptor is aware and concurs with the plan as stated in the body of this note and will attest to such by his/her cosignature. Farhat Ni DO Jun 30, 2021 18:17
[2021-06-30 19:46] VITALS: BP 120/66
[2021-06-30] MEDS: ATORVASTATIN 20 MG TAB PO SCH (21:59)
[2021-06-30] MEDS: traZODone 50 MG TAB PO SCH (21:59)
[2021-07-01 05:40] VITALS: BP 124/66
[2021-07-01] MEDS: HEPARIN SOD (PORCINE) 5000UNITS/ML 1ML VIAL/SYRINGE SQ SCH ×2 (06:04→13:01)
[2021-07-01] MEDS: LEVOTHYROXINE 100MCG TABLET (0.1MG) PO SCH (06:04)
[2021-07-01 06:10] LABS: BASO % 0.6 % (0.0-1.0); EOS # 0.5 10^3/uL (0.0-0.5); EOS % 7.3 % (0.0-3.0); HEMATOCRIT 34.2 % (36.0-47.0); HEMOGLOBIN 10.8 g/dl (12.0-15.5); LYMPH # 1.8 10^3/uL (1.5-5.0); LYMPH % 26.9 % (24.0-44.0); MEAN CORPUSCULAR HEMOGLOBIN 28.9 pg (27.0-33.0); MEAN CORPUSCULAR HGB CONC 31.6 g/dl (32.0-36.5); MEAN CORPUSCULAR VOLUME 91.4 fl (80.0-96.0); MONO # 0.7 10^3/uL (0.0-0.8); MONO % 10.8 % (2.0-8.0); NEUTROPHILS # 3.7 10^3/uL (1.5-8.5); NEUTROPHILS % 53.8 % (36.0-66.0); PLATELET COUNT, AUTOMATED 227 10^3/uL (150-450); RED BLOOD COUNT 3.74 10^6/uL (4.00-5.40); WHITE BLOOD COUNT 6.8 10^3/uL (4.0-10.0)
[2021-07-01 06:34] LABS: BLOOD UREA NITROGEN 12 MG/DL (7-18); CARBON DIOXIDE LEVEL 30 MEQ/L (21-32); CHLORIDE LEVEL 101 MEQ/L (98-107); CREATININE FOR GFR 0.85 MG/DL (0.55-1.30); GLOMERULAR FILTRATION RATE > 60.0 (>45); GLUCOSE, FASTING 190 MG/DL (70-100); MAGNESIUM LEVEL 1.9 MG/DL (1.8-2.4); POTASSIUM SERUM 3.9 MEQ/L (3.5-5.1); SODIUM LEVEL 139 MEQ/L (136-145)
[2021-07-01] MEDS: FLUTICASONE PROP 0.05% NASAL SPRAY 16 GM (FLONASE) NARES SCH (08:59)
[2021-07-01] MEDS: LEVEMIR (INSULIN DETEMIR) 1 UNITS/0.01ML SC SCH (09:00)
[2021-07-01] MEDS: NYSTATIN 100,000 UNITS/GM TOPICAL PWD 15 GM TOP SCH (09:00)
[2021-07-01] MEDS: HumaLOG INSULIN (NovoLOG) PER UNIT SC SCH ×2 (09:00→13:00)
[2021-07-01] MEDS: DIVALPROEX 500 MG TAB PO SCH (09:01)
[2021-07-01] MEDS: ASPIRIN 81 MG CHEW TABLET PO SCH (09:01)
[2021-07-01] MEDS: busPIRone 10 MG TAB PO SCH (09:01)
[2021-07-01] MEDS: OMEPRAZOLE 20 MG CAP PO SCH (09:01)
[2021-07-01] MEDS: NORTRIPTYLINE 10 MG CAP PO SCH (09:01)
[2021-07-01] MEDS: DULoxetine 30MG CAPSULE (CYMBALTA) PO SCH (09:01)
[2021-07-01] MEDS: GABAPENTIN 400MG CAP PO SCH ×2 (09:01→15:48)
[2021-07-01 09:02] VITALS: BP 124/66
[2021-07-01] MEDS: TORSEMIDE 20 MG TAB PO SCH (09:02)
[2021-07-01] MEDS: VALSARTAN 40MG TABLET (DIOVAN) PO SCH (09:02)
[2021-07-01] MEDS ORDERED: DICLOFENAC EPOLAMINE 1.3 % PATCH TOP SCH (09:10)
--- NOTE | 2021-07-01 09:19 | IPNPDOC ---
Date Seen The patient was seen on 07/01/21. Progress Note SUBJECTIVE: Patient is a 60-year-old female with scented to the ED after falling at [facility] assisted living. Today she reports improved pain in her back and hip than when she came in. Compared to yesterday she says her back pain is about the same but it got worse last night after working with PT. She is unsure of how her hip pain is today because she has not attempted to stand up. In regards to the abdominal pain she described yesterday, she reports continuation of the stinging sensation with urination and pain in her lower abdomen and around her bellybutton. Also, she realized that she must have hit her hand on the fall because she complains of her left knuckles hurting. She would also like diclofenac gel for her arthritis for which she says she uses as needed at [facility]. Review of systems: Constitutional: Denies fever, chills, night sweats Cardiac: Denies chest pain, tachycardia Respiratory: Denies shortness of breath, pain with breathing, coughing Gastrointestinal: Denies nausea, vomiting, diarrhea Genitourinary: Reports dysuria and increased urination; denies hematuria Neurologic: Denies headache, dizziness, blurry vision OBJECTIVE PHYSICAL EXAMINATION: VITAL SIGNS: Please see below. GENERAL: 60-year-old, obese, female, lying in bed, in no acute dis tress HEENT: Head normocephalic atraumatic, eyes PERRLA and EOMI CARDIOVASCULAR: Regular rate and rhythm. RESPIRATORY: Clear to auscultation bilaterally. ABDOMINAL: Normoactive bowel sounds appreciated throughout, tender to palpation in the lower quadrants and below umbilicus EXTREMITIES: 2+ radial pulses, pedal pulses unable to be appreciated due to habitus PSYCHOLOGICAL: Alert and oriented x4 LABORATORY DATA, IMAGING STUDIES, MICROBIOLOGY: Please see below. Hip L XR 06/29: Age-related degenerative changes. No acute fracture or dislocation. Should XR 06/29: Mild arthritic degenerative changes. No evidence for acute fracture or dislocation. CT Lumbar spine 06/29: 1. Moderate chronic canal stenosis primarily involving L2-3 through L5-S1 relatively unchanged in appearance compared to 07/19/2020. 2. No evidence for acute fracture/compression injury or subluxation. Echocardiogram: . DVT prophylaxis ordered?: Heparin subcu ASSESSMENT AND PLAN: This is a 60-year-old female with with back and hip pain status post mechanical fall at assisted living after not having steady material liaison on her walker. # Fall likely mechanical - Patient reports that while ambulating, she had a pain in her right leg and it gave out, causing her to fall onto her left side - Reports no head trauma or LOC, no focal neuro deficits - Has hx of unsteady gait/ frequent falls - PT/OT seen and evaluated patient - Will likely need placement in assisted living (previously in [facility] skilled living) # HTN - BP continues to be well controlled- c/w home valsartan/torsemide # Dysuria - UA with reflex to culture ordered # IDDMII with neuropathy - Started on ISS with hypoglycemia protocol - c/w gabapentin # DLP - c/w home atorvastatin # Asthma - No sx of exacerbation at this time - c/w home inhaled therapy as needed # Hypothyroidism - c/w home Levothyroxine # Venous insufficiency with lymphedema - c/w home torsemide with hold parameters # Seizure disorder - c/w home divalproex # Osteoarthritis - c/w home tramadol - Diclofenac patches to most painful areas # Fibromyalgia/Anxiety/Depression/PTSD - c/w home Nortriptyline/Duloxetine/Trazodone # Migraine HAs - c/w home Zolmitriptan # Obesity - BMI 57.0 - Complicates care # GERD - c/w home ompelrazole DVT prophylaxis: Heparin 7500 units SQ q8h VS, I&O, 24H, Fishbone Vital Signs/I&O Vital Signs Date Time Temp Pulse Resp B/P (MAP) Pulse Ox O2 Delivery O2 Flow Rate FiO2 07/01/21 09:02 124/66 07/01/21 05:40 98.0 76 16 97 Room Air I&O- Last 24 Hours up to 6 AM 07/01/21 06:00 Intake Total 420 ml Output Total 100 ml Balance 320 ml Laboratory Data 24H LABS Laboratory Tests 2 06/30/21 09:32: Immature Granulocyte % (Auto) 0.7, Neutrophils (%) (Auto) 62.3, Lymphocytes (%) (Auto) 19.5L, Monocytes (%) (Auto) 11.2H, Eosinophils (%) (Auto) 5.6H, Basophils (%) (Auto) 0.7, Neutrophils # (Auto) 4.7, Lymphocytes # (Auto) 1.5, Monocytes # (Auto) 0.8, Eosinophils # (Auto) 0.4, Basophils # (Auto) 0.1, Nucleated Red Blood Cells % (auto) 0.0, Anion Gap 5L, Glomerular Filtration Rate > 60.0, Calcium Level 8.8, Magnesium Level 1.8 06/30/21 09:48: Bedside Glucose (Misc Panel) 238H 06/30/21 11:30: Bedside Glucose (Misc Panel) 252H 06/30/21 17:11: Bedside Glucose (Misc Panel) 236H 06/30/21 19:50: Bedside Glucose (Misc Panel) 314H 07/01/21 05:55: Immature Granulocyte % (Auto) 0.6, Neutrophils (%) (Auto) 53.8, Lymphocytes (%) (Auto) 26.9, Monocytes (%) (Auto) 10.8H, Eosinophils (%) (Auto) 7.3H, Basophils (%) (Auto) 0.6, Neutrophils # (Auto) 3.7, Lymphocytes # (Auto) 1.8, Monocytes # (Auto) 0.7, Eosinophils # (Auto) 0.5, Basophils # (Auto) 0.0, Nucleated Red Blood Cells % (auto) 0.0, Anion Gap 8, Glomerular Filtration Rate > 60.0, Calcium Level 9.0, Magnesium Level 1.9 CBC/BMP Laboratory Tests 06/30/21 09:32 07/01/21 05:55 GME ATTESTATION GME ATTESTATION My faculty preceptor for this patient encounter was physically present during the encounter and was fully available. All aspects of the patient interview, examination, medical decision making process, and medical care plan development were reviewed and approved by the faculty preceptor. The faculty preceptor is aware and concurs with the plan as stated in the body of this note and will attest to such by his/her cosignature. Farhat Ni DO Jul 01, 2021 09:19
[2021-07-01] MEDS: traMADol 50 MG TAB PO PRN ×2 (09:27→15:49)
[2021-07-01] MEDS ORDERED: MACR100C43 PO (13:26)
--- NOTE | 2021-07-01 13:45 | DS.PDOC ---
Discharge Summary General Date of Admission Jun 29, 2021 at 17:55 Date of Discharge Jun, Discharge Summary PROCEDURES PERFORMED DURING STAY: None ADMITTING DIAGNOSES: HTN IDDM2 w neuropathy Asthma Hypothyroidism Venous insufficiency w lymphedema Seizure Disorder Osteoarthritis Unsteady gait / Frequent falls / Uses walker Fibromyalgia / Anxiety / Depression / PTSD Migraine headaches Obesity DISCHARGE DIAGNOSES: Debility HTN IDDM2 w neuropathy Asthma Hypothyroidism Venous insufficiency w lymphedema Seizure Disorder Osteoarthritis Unsteady gait / Frequent falls / Uses walker Fibromyalgia / Anxiety / Depression / PTSD Migraine headaches Obesity COMPLICATIONS/CHIEF COMPLAINT: Frequent Falls,Lumbar Spinal Stenosis. HISTORY OF PRESENT ILLNESS: Patient is a 60-year-old female with a PMHx of HTN, IDDM2, Asthma, Hypothyroidism, Venous insufficiency w lymphedema, frequent falls and unsteady gait presented to the emergency room after she had fallen at [facility] assisted living. Patient reported that she was in the bathroom and was ambulating to the kitchen with a walker. Reports that she does not have a steady grades 7 8 tutor of her walker. She reported her leg gave out and she fell back and landed on her bottom. Patient denies any head trauma or loss of consciousness. Upon arrival to emergency room, patient reports back soreness and overall generalized weakness. Patient reports urinary incontinence. However, this is an ongoing problem for 3 years. She denies any incontinence of her stool. Patient denies any chest pain. Reports a chronic cough. Denies any palpitations or shortness of breath. Denies any nausea, vomiting, abdominal pain. Does report some diarrhea with loose stools. Denies any urinary discomfort. Denies any fevers but does report some chills. Patient reports her appetite is poor and has had a weight gain. HOSPITAL COURSE: Ms. Schumacher is admitted to the hospitalist service after a fall at [facility] that was likely mechanical. She does have hx of unsteady gait and frequ ent falls. Imaging showed no acute injury at this time and only chronic changes. We started pain control and PT/OT to assess her ambulation and fitness to be discharged to either a [facility]ci facility or an assisted living home. All of her home meds were continued. She was able to work with PT/OT. She did report some urinary discomfort, patient will be discharged with Bactrim x7d. Her pain is chronic and is currently too limited to return to [facility]. She was approved by PT/OT to be placed in a [facility] home. She will be discharged to [facility]. Patient instructed to be compliant with the medications as well as all her home medications. Patient was also instructed to participate in rehab and be compliant. DISCHARGE MEDICATIONS: Please see below. ALLERGIES: Please see below. PHYSICAL EXAMINATION ON DISCHARGE: VITAL SIGNS: Please see below. GENERAL: Thoroughly female, rather obese. Laying in bed without any acute distress. AAO x3 HEENT: Head is normocephalic atraumatic, eyes PERRLA and EOMI, moist mucous membrane. CARDIOVASCULAR: Sinus rhythm, no significant murmur gallops rubs appreciated. Unable to appreciate JVD due to body habitus. RESPIRATORY: Unable to appreciate any significant wheezing, rhonchi, rales. Trace pitting edema ABDOMINAL: Normoactive bowel sounds appreciated throughout, tender to palpation in the lower quadrants and below umbilicus EXTREMITIES: 2+ radial pulses, pedal pulses unable to be appreciated due to habitus PSYCHOLOGICAL: Appropriate mood and affect LABORATORY DATA: Please see below. IMAGING: Hip L XR 06/29: Age-related degenerative changes. No acute fracture or dislocation. Should XR 06/29: Mild arthritic degenerative changes. No evidence for acute fracture or dislocation. CT Lumbar spine 06/29: 1. Moderate chronic canal stenosis primarily involving L2-3 through L5-S1 relatively unchanged in appearance compared to 07/19/2020. 2. No evidence for acute fracture/compression injury or subluxation. PROGNOSIS: Stable ACTIVITY: As tolerated DIET: 2 g sodium DISCHARGE PLAN: We will discharge to rehab at the [facility]. DISCHARGE INSTRUCTIONS: Please be compliant with your medications Please take your antibiotics Macrobid 100 mg p.o. twice daily for 7 days Please follow-up with your primary care physician within 7 days of hospital discharge. If your symptoms present again and/or worsen please present to the nearest ER DISCHARGE CONDITION: Stable TIME SPENT ON DISCHARGE: 30 minutes Vital Signs/I&Os Vital Signs Date Time Temp Pulse Resp B/P (MAP) Pulse Ox O2 Delivery O2 Flow Rate FiO2 07/01/21 09:57 18 Room Air 07/01/21 09:02 124/66 07/01/21 05:40 98.0 76 97 I&O- Last 24 Hours up to 6 AM 07/01/21 05:59 Intake Total 540 ml Output Total 800 ml Balance -260 ml Laboratory Data Labs 24H Laboratory Tests 2 06/30/21 17:11: Bedside Glucose (Misc Panel) 236H 06/30/21 19:50: Bedside Glucose (Misc Panel) 314H 07/01/21 05:55: Immature Granulocyte % (Auto) 0.6, Neutrophils (%) (Auto) 53.8, Lymphocytes (%) (Auto) 26.9, Monocytes (%) (Auto) 10.8H, Eosinophils (%) (Auto) 7.3H, Basophils (%) (Auto) 0.6, Neutrophils # (Auto) 3.7, Lymphocytes # (Auto) 1.8, Monocytes # (Auto) 0.7, Eosinophils # (Auto) 0.5, Basophils # (Auto) 0.0, Nucleated Red Blood Cells % (auto) 0.0, Anion Gap 8, Glomerular Filtration Rate > 60.0, Calcium Level 9.0, Magnesium Level 1.9 07/01/21 11:50: Bedside Glucose (Misc Panel) 254H CBC/BMP Laboratory Tests 07/01/21 05:55 FSBS Laboratory Tests Test 06/30/21 17:11 06/30/21 19:50 07/01/21 11:50 Range/Units Bedside Glucose (Misc Panel) 236 314 254 80-115 MG/DL Discharge Medications Scheduled Aspirin (Aspirin) 81 Mg Tab.chew, 81 MG PO DAILY, (Reported) Atorvastatin Calcium (Atorvastatin Calcium) 40 Mg Tablet, 40 MG PO QPM, (Reported) Buspirone HCl (Buspirone HCl) 10 Mg Tablet, 10 MG PO BID, (Reported) Divalproex Sodium (Divalproex Sodium) 500 Mg Tablet.dr, 500 MG PO BID, (Reported) Duloxetine HCl (Duloxetine HCl) 60 Mg Capsule.dr, 120 MG PO DAILY, (Reported) Ferrous Sulfate (Ferrous Sulfate) 324 Mg Tablet.dr, 324 MG PO DAILY, (Reported) Fluticasone Propionate (Fluticasone Propionate) 16 Gm Gary.susp, 1 SPRAY NARES BID, (Reported) Gabapentin (Gabapentin) 400 Mg Capsule, 400 MG PO TID, (Reported) Insulin Aspart (Novolog Flexpen) 100 Unit/1 Ml Insuln.pen, 8 UNITS SC TID, (Reported) Insulin Glargine,Hum.rec.anlog (Lantus Solostar) 100 Unit/1 Ml Insuln.pen, 30 UNITS SC BID, (Reported) Levothyroxine Sodium (Synthroid) 200 Mcg Tablet, 200 MCG PO DAILY, (Reported) Melatonin (Melatonin) 5 Mg Tablet, 5 MG PO QHS, (Reported) Nitrofurantoin Monohyd/M-Cryst (Macrobid 100 mg Capsule) 100 Mg Capsule, 100 MG PO BID Nortriptyline HCl (Nortriptyline HCl) 10 Mg Capsule, 10 MG PO DAILY, (Reported) Nystatin (Nystatin Powder) 15 Gm Powder, 1 APPLIC TOP BID, (Reported) APPLY UNDER BREASTS Omeprazole (Omeprazole) 40 Mg Capsule.dr, 40 MG PO DAILY, (Reported) Torsemide (Torsemide) 20 Mg Tablet, 20 MG PO DAILY, (Reported) Trazodone HCl (Trazodone HCl) 150 Mg Tablet, 150 MG PO QHS, (Reported) Valsartan (Valsartan) 40 Mg Tablet, 40 MG PO BID, (Reported) Scheduled PRN Acetaminophen (Acetaminophen) 500 Mg Tablet, 1,000 MG PO Q8H PRN for PAIN LEVEL 1-4, (Reported) Diclofenac Sodium (Diclofenac Sodium) 1% 100GM Gel..gram., 1 APLCT TOP QID PRN for PAIN, (Reported) APPLY TO AFFCETED AREA Tramadol HCl (Tramadol HCl) 50 Mg Tablet, 50 MG PO Q6H PRN for PAIN LEVEL 4-7, (Reported) Zolmitriptan (Zolmitriptan) 2.5 Mg Tablet, 2.5 MG PO DAILY PRN for MIGRAINE, (Reported) Allergies Coded Allergies: shellfish derived (Verified Allergy, Severe, ANAPHYLAXIS, 12/03/20) atorvastatin (Verified Adverse Reaction, Intermediate, ELEVATED LIVER ENZYMES, 12/03/20) quetiapine (Verified Adverse Reaction, Intermediate, SEIZURES, 12/03/20) Hydrolyzed [place] Oil (Verified Adverse Reaction, Mild, DIARRHEA, 12/03/20) ibuprofen (Verified Adverse Reaction, Mild, UPSET STOMACH, 12/03/20) metformin (Verified Adverse Reaction, Mild, DIARRHEA, 12/03/20) Trudy Barreto DO Jul 01, 2021 13:45
[2021-07-01 14:00] VITALS: BP 152/80
== END 2021-07-01 16:45 | DRG 58 ==
LOC: EDBD 12:42 → M ED 12:42 → M ED INP 17:55 → ENRESERV 18:47 → M MS5PR 19:48
PROVIDERS: ADMIT Internal Medicine; ATTEND Internal Medicine
DX: R29.6 Repeated falls (principal); E11.40 Type 2 diabetes mellitus with diabetic neuropathy, unspecified; Z68.43 Body mass index [BMI] 50.0-59.9, adult; E66.9 Obesity, unspecified; I10 Essential (primary) hypertension; R53.81 Other malaise; M19.90 Unspecified osteoarthritis, unspecified site; E03.9 Hypothyroidism, unspecified; M79.7 Fibromyalgia; G40.909 Epilepsy, unspecified, not intractable, without status epilepticus; F41.9 Anxiety disorder, unspecified; F32.9 Major depressive disorder, single episode, unspecified; F43.10 Post-traumatic stress disorder, unspecified; J45.909 Unspecified asthma, uncomplicated; Z79.82 Long term (current) use of aspirin; Z79.899 Other long term (current) drug therapy; Z91.013 Allergy to seafood; Z88.6 Allergy status to analgesic agent; Z88.8 Allergy status to other drugs, medicaments and biological substances; R26.81 Unsteadiness on feet; K21.9 Gastro-esophageal reflux disease without esophagitis

== ENCOUNTER 2021-10-25 01:00 | Emergency (ER) | payer MEDICAID, OTHER ==
[~2021-10-25] VITALS: Ht 152.4 cm; Wt 142.0 kg
[~2021-10-25 01:00] MED LIST changes: +ASPI81CH33 PO; +DICL1GEL3 TOP; +DIVA500T94 PO; +FERR324T2 PO; +FLUTISP NARES; +LOSA50TA28 PO; -LOSA50TA88 PO; +MACR100C43 PO; +MELA1TAB9 PO; +NORT10CA2 PO; +NOVOINJ3 SC; -OMEP-221 PO; +OMEP40CA5 PO; +TORS20TA2 PO; +TRAZ150T90 PO; +VALS40TA9 PO; +ZOLM2.5T20 PO
[2021-10-25] MEDS ORDERED: NS 1,000 ML IV ONE (01:05)
[2021-10-25 01:45] LABS: BASO % 0.4 % (0.0-1.0); EOS # 0.5 10^3/uL (0.0-0.5); EOS % 4.8 % (0.0-3.0); HEMATOCRIT 34.5 % (36.0-47.0); LYMPH # 2.8 10^3/uL (1.5-5.0); LYMPH % 29.8 % (24.0-44.0); MEAN CORPUSCULAR HEMOGLOBIN 29.8 pg (27.0-33.0); MEAN CORPUSCULAR HGB CONC 31.9 g/dl (32.0-36.5); MEAN CORPUSCULAR VOLUME 93.5 fl (80.0-96.0); MONO # 1.2 10^3/uL (0.0-0.8); MONO % 12.3 % (2.0-8.0); NEUTROPHILS # 4.8 10^3/uL (1.5-8.5); NEUTROPHILS % 51.8 % (36.0-66.0); PLATELET COUNT, AUTOMATED 212 10^3/uL (150-450); RED BLOOD COUNT 3.69 10^6/uL (4.00-5.40); WHITE BLOOD COUNT 9.3 10^3/uL (4.0-10.0)
[2021-10-25] MEDS ORDERED: ONDANSETRON 4MG/2ML VIAL IV ONE (01:45)
[2021-10-25] MEDS ORDERED: CHARCOAL ACTIVATED LIQUID 25 GM/120 ML BTL PO ONE (01:45)
[2021-10-25 02:28] LABS: ACETAMINOPHEN LEVEL 66.6 UG/ML (10.0-30.0); ALT/SGPT 23 U/L (12-78); BILIRUBIN,DIRECT < 0.1 MG/DL (0.0-0.2); BILIRUBIN,TOTAL 0.2 MG/DL (0.2-1.0); BLOOD UREA NITROGEN 17 MG/DL (7-18); CALCIUM LEVEL 8.8 MG/DL (8.8-10.2); CARBON DIOXIDE LEVEL 31 MEQ/L (21-32); CHLORIDE LEVEL 96 MEQ/L (98-107); ETHYL ALCOHOL (ETHANOL) 0.004 % (0.000-0.010); GLOMERULAR FILTRATION RATE 59.8 (>45); GLUCOSE, FASTING 291 MG/DL (70-100); POTASSIUM SERUM 4.1 MEQ/L (3.5-5.1); SALICYLATE LEVEL 10.6 MG/DL (5.0-30.0); SODIUM LEVEL 134 MEQ/L (136-145); VALPROIC ACID (DEPAKOTE) 48.7 UG/ML (50.0-100.0)
[2021-10-25 02:43] LABS: AMPHETAMINES LEVEL URINE NEGATIVE (NEGATIVE); BARBITURATES URINE NEGATIVE (NEGATIVE); BENZODIAZEPINES URINE NEGATIVE (NEGATIVE); CANNABINOIDS URINE NEGATIVE (NEGATIVE); COCAINE METABOLITE URINE NEGATIVE (NEGATIVE); METHADONE URINE NEGATIVE (NEGATIVE); OPIATES URINE NEGATIVE (NEGATIVE); PHENCYCLIDINE URINE NEGATIVE (NEGATIVE)
[2021-10-25 02:58] LABS: SALICYLATE LEVEL 11.3 MG/DL (5.0-30.0)
[2021-10-25 03:34] LABS: FREE T4 1.07 NG/DL (0.76-1.46)
[2021-10-25] MEDS ORDERED: DIVALPROEX 500 MG TAB PO SCH (09:00)
[2021-10-25] MEDS ORDERED: busPIRone 5 MG TAB PO SCH (09:00)
[2021-10-25] MEDS ORDERED: LEVEMIR (INSULIN DETEMIR) 1 UNITS/0.01ML SC SCH (09:00)
[2021-10-25] MEDS ORDERED: TORSEMIDE 20 MG TAB PO SCH (09:00)
[2021-10-25] MEDS ORDERED: BUSP15TA47 PO (13:00)
[2021-10-25] MEDS ORDERED: HOME MED LIST COMPLETE! XX SCH (13:05)
[2021-10-25] MEDS: HumaLOG INSULIN (NovoLOG) PER UNIT SC SCH ×2 (14:14→17:17)
[2021-10-25] MEDS ORDERED: OMEPRAZOLE 20MG CAP PO ONE (15:00)
[2021-10-25] MEDS ORDERED: GABAPENTIN 400MG CAP PO SCH (16:00)
[2021-10-25 17:46] VITALS: BP 185/92
[2021-10-25] MEDS ORDERED: VALSARTAN 80 MG TAB (DIOVAN) PO SCH (21:00)
[2021-10-25] MEDS ORDERED: ATORVASTATIN 20 MG TAB PO SCH (21:00)
[2021-10-26] MEDS ORDERED: LEVOTHYROXINE 100MCG TABLET (0.1MG) PO SCH (06:00)
== END 2021-10-25 18:00 ==
LOC: M ED 01:00 → EDBD 01:00 → M ED 18:00
DX: T14.91XA Suicide attempt, initial encounter (principal); F32.A Depression, unspecified; R45.851 Suicidal ideations; E11.9 Type 2 diabetes mellitus without complications; I10 Essential (primary) hypertension; G43.909 Migraine, unspecified, not intractable, without status migrainosus; Z88.6 Allergy status to analgesic agent; Z88.8 Allergy status to other drugs, medicaments and biological substances; Z91.048 Other nonmedicinal substance allergy status; Z91.013 Allergy to seafood; Z79.4 Long term (current) use of insulin; Z82.49 Family history of ischemic heart disease and other diseases of the circulatory system; Y92.9 Unspecified place or not applicable; Y93.9 Activity, unspecified; Y99.9 Unspecified external cause status
CPT/HCPCS: 36415; 80048; 80076; 80143; 80164; 80179; 80307; 82077; 82550; 84439; 84443; 85025; 87798; 93005; 93041; 94760; 96361; 96374; 99285; J2405

== ENCOUNTER → 2021-11-10 | Outpatient (CLI) | payer MEDICAID, OTHER ==
[2021-11-10 17:32] LABS: BASO % 0.5 % (0.0-1.0); EOS # 0.2 10^3/uL (0.0-0.5); EOS % 2.9 % (0.0-3.0); HEMATOCRIT 40.7 % (36.0-47.0); LYMPH # 1.6 10^3/uL (1.5-5.0); LYMPH % 20.8 % (24.0-44.0); MEAN CORPUSCULAR HEMOGLOBIN 30.2 pg (27.0-33.0); MEAN CORPUSCULAR HGB CONC 31.9 g/dl (32.0-36.5); MEAN CORPUSCULAR VOLUME 94.4 fl (80.0-96.0); MONO # 0.9 10^3/uL (0.0-0.8); MONO % 12.1 % (2.0-8.0); NEUTROPHILS # 4.8 10^3/uL (1.5-8.5); NEUTROPHILS % 62.6 % (36.0-66.0); PLATELET COUNT, AUTOMATED 185 10^3/uL (150-450); RED BLOOD COUNT 4.31 10^6/uL (4.00-5.40); WHITE BLOOD COUNT 7.6 10^3/uL (4.0-10.0)
[2021-11-10 17:47] LABS: ALBUMIN 3.2 GM/DL (3.2-5.2); ALT/SGPT 24 U/L (12-78); BILIRUBIN,TOTAL 0.5 MG/DL (0.2-1.0); BLOOD UREA NITROGEN 22 MG/DL (7-18); CALCIUM LEVEL 9.1 MG/DL (8.8-10.2); CARBON DIOXIDE LEVEL 31 MEQ/L (21-32); CHLORIDE LEVEL 94 MEQ/L (98-107); CREATININE FOR GFR 0.92 MG/DL (0.55-1.30); GLOMERULAR FILTRATION RATE > 60.0 (>45); GLUCOSE, FASTING 372 MG/DL (70-100); POTASSIUM SERUM 4.3 MEQ/L (3.5-5.1); SODIUM LEVEL 131 MEQ/L (136-145); TOTAL PROTEIN 7.5 GM/DL (6.4-8.2)
[2021-11-10 17:47] LABS: HEMOGLOBIN A1c 10.2 %
== END ==
LOC: M PLALAB 15:43
PROVIDERS: ATTEND Physician Assistant Medical
DX: E11.9 Type 2 diabetes mellitus without complications (principal)

== ENCOUNTER → 2021-11-28 | Outpatient (CLI) | payer MEDICAID, OTHER ==
[2021-11-28 15:22] LABS: BASO # 0.1 10^3/uL (0.0-0.2); BASO % 0.8 % (0.0-1.0); EOS # 0.4 10^3/uL (0.0-0.5); EOS % 3.7 % (0.0-3.0); HEMATOCRIT 40.8 % (36.0-47.0); HEMOGLOBIN 12.7 g/dl (12.0-15.5); LYMPH # 2.1 10^3/uL (1.5-5.0); LYMPH % 19.4 % (24.0-44.0); MEAN CORPUSCULAR HEMOGLOBIN 29.7 pg (27.0-33.0); MEAN CORPUSCULAR HGB CONC 31.1 g/dl (32.0-36.5); MEAN CORPUSCULAR VOLUME 95.3 fl (80.0-96.0); MONO # 1.2 10^3/uL (0.0-0.8); MONO % 10.7 % (2.0-8.0); NEUTROPHILS # 6.6 10^3/uL (1.5-8.5); NEUTROPHILS % 61.6 % (36.0-66.0); PLATELET COUNT, AUTOMATED 251 10^3/uL (150-450); RED BLOOD COUNT 4.28 10^6/uL (4.00-5.40); WHITE BLOOD COUNT 10.8 10^3/uL (4.0-10.0)
[2021-11-28 15:48] LABS: ALBUMIN 3.2 GM/DL (3.2-5.2); ALT/SGPT 18 U/L (12-78); BILIRUBIN,TOTAL 0.3 MG/DL (0.2-1.0); BLOOD UREA NITROGEN 22 MG/DL (7-18); C REACTIVE PROTEIN QUANTITATIV 1.13 MG/DL (0.00-0.30); CALCIUM LEVEL 9.1 MG/DL (8.8-10.2); CARBON DIOXIDE LEVEL 33 MEQ/L (21-32); CHLORIDE LEVEL 96 MEQ/L (98-107); CREATININE FOR GFR 0.94 MG/DL (0.55-1.30); GLOMERULAR FILTRATION RATE > 60.0 (>45); GLUCOSE, FASTING 299 MG/DL (70-100); NT-PRO BNP 218 PG/ML (<125); POTASSIUM SERUM 4.7 MEQ/L (3.5-5.1); SODIUM LEVEL 132 MEQ/L (136-145); TOTAL PROTEIN 7.9 GM/DL (6.4-8.2)
[2021-11-28 15:49] LABS: ERYTHROCYTE SEDIMENTATION RATE 41 mm/hr (0-30)
== END ==
LOC: M PLALAB 12:26
PROVIDERS: ATTEND Physician Assistant
DX: I89.0 Lymphedema, not elsewhere classified (principal)

== ENCOUNTER 2021-12-06 00:31 | Emergency (ER) | payer MEDICARE, MEDICAID ==
[~2021-12-06] VITALS: Ht 154.9 cm; Wt 131.4 kg
[2021-12-06 01:05] LABS: BASO # 0.1 10^3/uL (0.0-0.2); BASO % 0.7 % (0.0-1.0); EOS # 0.4 10^3/uL (0.0-0.5); EOS % 4.4 % (0.0-3.0); HEMOGLOBIN 11.7 g/dl (12.0-15.5); LYMPH # 1.8 10^3/uL (1.5-5.0); LYMPH % 22.2 % (24.0-44.0); MEAN CORPUSCULAR HEMOGLOBIN 29.4 pg (27.0-33.0); MEAN CORPUSCULAR HGB CONC 30.8 g/dl (32.0-36.5); MEAN CORPUSCULAR VOLUME 95.5 fl (80.0-96.0); MONO # 0.9 10^3/uL (0.0-0.8); MONO % 10.6 % (2.0-8.0); NEUTROPHILS # 4.9 10^3/uL (1.5-8.5); NEUTROPHILS % 59.8 % (36.0-66.0); PLATELET COUNT, AUTOMATED 208 10^3/uL (150-450); RED BLOOD COUNT 3.98 10^6/uL (4.00-5.40); WHITE BLOOD COUNT 8.2 10^3/uL (4.0-10.0)
[2021-12-06 01:31] LABS: CK-MB VALUE MASS < 1.0 NG/ML (<3.6); CPK CREATINE PHOSPHOKINASE 23 U/L (26-192); MB/CK RELATIVE INDEX 4.35 (< OR =4)
[2021-12-06 01:35] LABS: CALCIUM LEVEL 8.5 MG/DL (8.8-10.2); CREATININE FOR GFR 1.06 MG/DL (0.55-1.30); GLOMERULAR FILTRATION RATE 55.9 (>45); POTASSIUM SERUM 4.7 MEQ/L (3.5-5.1)
[2021-12-06 01:44] LABS: INR 0.94
[2021-12-06] MEDS ORDERED: HumuLIN R (REGULAR) INSULIN (NovoLIN R) **100U/ML** PER UNIT IV ONE (03:50)
[2021-12-06 08:32] VITALS: BP 135/82
== END 2021-12-06 10:00 | disposition home or self-care (01) ==
LOC: M ED 00:31
DX: R07.9 Chest pain, unspecified (principal); R94.31 Abnormal electrocardiogram [ECG] [EKG]; E11.9 Type 2 diabetes mellitus without complications; Z79.84 Long term (current) use of oral hypoglycemic drugs; E03.9 Hypothyroidism, unspecified; I10 Essential (primary) hypertension; F43.10 Post-traumatic stress disorder, unspecified; G43.909 Migraine, unspecified, not intractable, without status migrainosus; G40.509 Epileptic seizures related to external causes, not intractable, without status epilepticus; Z79.899 Other long term (current) drug therapy
CPT/HCPCS: 71045; 80048; 82550; 82553; 83880; 84484; 85025; 85610; 93005; 93041; 94760; 96374; 99285; J1815

== ENCOUNTER 2021-12-24 23:26 | Emergency (ER) | payer MEDICARE, MEDICAID ==
[~2021-12-24] VITALS: Ht 154.9 cm; Wt 143.2 kg
[2021-12-25] MEDS ORDERED: ACETAMINOPHEN TAB 650MG DOSE (2X325MG) PO ONE (00:35)
[2021-12-25 02:45] VITALS: BP 132/68
== END 2021-12-25 04:01 | disposition home or self-care (01) ==
LOC: M ED 23:26
DX: M25.512 Pain in left shoulder (principal); S91.201A Unspecified open wound of right great toe with damage to nail, initial encounter; W01.0XXA Fall on same level from slipping, tripping and stumbling without subsequent striking against object, initial encounter; Y92.9 Unspecified place or not applicable; Y93.9 Activity, unspecified; Y99.9 Unspecified external cause status; Z79.4 Long term (current) use of insulin; Z79.899 Other long term (current) drug therapy; Z91.013 Allergy to seafood; Z88.8 Allergy status to other drugs, medicaments and biological substances

== ENCOUNTER → 2022-01-07 | Outpatient (CLI) | payer MEDICARE, MEDICAID ==
[~2022-01-07] MED LIST changes: +ARIP1TAB6 PO; +DEPA250T32 PO; +ESOM1CAP5 PO; +IMIT50TA PO; +INSUHUMDS SC; +LIDO5DIS41 TD; +LOSA25TA13 PO; +MM S100C PO; +POLY17PO10 PO; +TORS5TAB2 PO; +VENL75CA2 PO; +VITA100093 PO
== END ==
LOC: M LABSMTC 10:51
PROVIDERS: ATTEND Anesthesiology
DX: Z01.818 Encounter for other preprocedural examination (principal); Z11.52 Encounter for screening for COVID-19

== ENCOUNTER → 2022-01-12 | Outpatient (REF) | payer MEDICAID ==
[2022-01-12 12:05] LABS: BASO % 0.6 % (0.0-1.0); EOS # 0.2 10^3/uL (0.0-0.5); EOS % 3.1 % (0.0-3.0); HEMATOCRIT 36.2 % (36.0-47.0); HEMOGLOBIN 10.9 g/dl (12.0-15.5); LYMPH # 1.7 10^3/uL (1.5-5.0); LYMPH % 25.3 % (24.0-44.0); MEAN CORPUSCULAR HEMOGLOBIN 28.8 pg (27.0-33.0); MEAN CORPUSCULAR HGB CONC 30.1 g/dl (32.0-36.5); MEAN CORPUSCULAR VOLUME 95.5 fl (80.0-96.0); MONO # 0.7 10^3/uL (0.0-0.8); MONO % 9.8 % (2.0-8.0); NEUTROPHILS # 4.1 10^3/uL (1.5-8.5); PLATELET COUNT, AUTOMATED 202 10^3/uL (150-450); RED BLOOD COUNT 3.79 10^6/uL (4.00-5.40); WHITE BLOOD COUNT 6.8 10^3/uL (4.0-10.0)
[2022-01-12 12:19] LABS: INR 0.91; PROTHROMBIN TIME 12.7 SECONDS (12.7-14.5)
[2022-01-12 12:20] LABS: PARTIAL THROMBOPLASTIN TIME 27.7 SECONDS (25.9-37.0)
[2022-01-12 13:00] LABS: ALBUMIN 2.7 GM/DL (3.2-5.2); ALT/SGPT 16 U/L (12-78); BILIRUBIN,TOTAL 0.2 MG/DL (0.2-1.0); BLOOD UREA NITROGEN 21 MG/DL (7-18); CALCIUM LEVEL 8.9 MG/DL (8.8-10.2); CARBON DIOXIDE LEVEL 32 MEQ/L (21-32); CHLORIDE LEVEL 98 MEQ/L (98-107); CREATININE FOR GFR 0.88 MG/DL (0.55-1.30); FERRITIN 14 NG/ML (8-252); FREE T4 1.14 NG/DL (0.76-1.46); GLOMERULAR FILTRATION RATE > 60.0 (>45); GLUCOSE, FASTING 246 MG/DL (70-100); NT-PRO BNP 209 PG/ML (<125); POTASSIUM SERUM 4.3 MEQ/L (3.5-5.1); SODIUM LEVEL 136 MEQ/L (136-145); TOTAL PROTEIN 6.7 GM/DL (6.4-8.2)
== END ==
PROVIDERS: ATTEND Family Medicine
DX: N95.0 Postmenopausal bleeding (principal)

== ENCOUNTER → 2022-02-02 | Outpatient (CLI) | payer MEDICAID ==
[~2022-02-02] MED LIST changes: +EXCETAB32 PO; -EXCETAB33 PO
== END ==
LOC: M LABSMTC 09:34
PROVIDERS: ATTEND Anesthesiology
DX: Z01.818 Encounter for other preprocedural examination (principal); Z11.52 Encounter for screening for COVID-19

== ENCOUNTER → 2022-02-26 | Outpatient (REF) | payer MEDICAID, MEDICARE ==
[2022-02-27 10:24] LABS: APPEARANCE, URINE HAZY (CLEAR); BACTERIA, URINE AUTO NEGATIVE (NEGATIVE); BILIRUBIN, URINE AUTO NEGATIVE (NEGATIVE); BLOOD, URINE BLOOD 2+ (NEGATIVE); COLOR, URINE YELLOW (YELLOW); GLUCOSE, URINE (UA) AUTO 1+ mg/dL (NEGATIVE); GRANULAR CAST, URINE AUTO 4 /LPF; KETONE, URINE AUTO TRACE mg/dL (NEGATIVE); LEUKOCYTE ESTERASE, URINE AUTO NEGATIVE (NEGATIVE); NITRITE, URINE AUTO NEGATIVE (NEGATIVE); PROTEIN, URINE AUTO NEGATIVE (NEGATIVE); RBC, URINE AUTO 91 /HPF (0-3); SPECIFIC GRAVITY URINE AUTO 1.015 (1.002-1.035); SQUAMOUS EPITHELIAL CELL UR AU 1 /HPF (0-6); UROBILINOGEN, URINE AUTO 0.2 mg/dL (0.0-2.0); WBC, URINE AUTO 3 /HPF (0-3)
== END ==
LOC: M SFHCPLAZ 09:40
PROVIDERS: ATTEND Family Medicine
DX: R30.0 Dysuria (principal)

== ENCOUNTER 2022-03-11 02:20 | Emergency (ER) | payer MEDICAID, MEDICARE ==
[~2022-03-11] VITALS: Ht 154.9 cm; Wt 143.2 kg
[~2022-03-11 02:20] MED LIST changes: -METH-1165 PO
[2022-03-11] MEDS ORDERED: GABAPENTIN 300 MG CAP PO ONE (04:35)
[2022-03-11] MEDS ORDERED: METHOCARBAMOL 1,000 MG/10 ML VIAL (J2800) IM ONE (04:35)
[2022-03-11] MEDS ORDERED: KETOROLAC 60MG 2ML VIAL IM ONE (04:35)
[2022-03-11 06:00] VITALS: BP 167/72
[2022-03-11] MEDS ORDERED: METH-1165 PO (06:20)
== END 2022-03-11 06:47 | disposition home or self-care (01) ==
LOC: M ED 02:20 → EDBD 02:20 → M ED 06:47
DX: S76.011A Strain of muscle, fascia and tendon of right hip, initial encounter (principal); E11.9 Type 2 diabetes mellitus without complications; F31.9 Bipolar disorder, unspecified; K21.9 Gastro-esophageal reflux disease without esophagitis; Z88.8 Allergy status to other drugs, medicaments and biological substances; Z91.018 Allergy to other foods; Z91.013 Allergy to seafood; Z79.4 Long term (current) use of insulin; Z79.899 Other long term (current) drug therapy; Y93.9 Activity, unspecified; Y92.9 Unspecified place or not applicable
CPT/HCPCS: 73502; 96372; 99284; J1885; J2800

== ENCOUNTER → 2022-03-11 | Outpatient (CLI) | payer MEDICARE, MEDICAID ==
[~2022-03-11] MED LIST changes: +METH-1165 PO
== END ==
LOC: M WHC 13:50
PROVIDERS: ATTEND Physician Assistant Medical
DX: I89.0 Lymphedema, not elsewhere classified (principal)

== ENCOUNTER 2022-04-16 22:44 | Emergency (ER) | payer MEDICAID ==
[~2022-04-16] VITALS: Ht 154.9 cm; Wt 145.4 kg
[~2022-04-16 22:44] MED LIST changes: +METH-1165 PO
[2022-04-16] MEDS ORDERED: LANTINJ4 SC (23:14)
[2022-04-16] MEDS ORDERED: FERR324T21 PO (23:14)
[2022-04-16] MEDS ORDERED: METF-838 PO (23:52)
[2022-04-16] MEDS ORDERED: HUMA100I5 SC (23:52)
[2022-04-16] MEDS ORDERED: AQUAOIN12 TP (23:52)
[2022-04-16] MEDS ORDERED: [UNRECOGNIZED DRUG - CODE] TP (23:52)
[2022-04-16] MEDS ORDERED: ZOLM2.5T20 PO (23:52)
[2022-04-17] MEDS ORDERED: INSULIN LISPRO (NovoLOG) PER UNIT SC ONE (09:30)
[2022-04-17] MEDS ORDERED: LEVEMIR (INSULIN DETEMIR) 1 UNITS/0.01ML SC ONE (09:30)
[2022-04-17 11:35] VITALS: BP 138/72
== END 2022-04-17 11:54 | disposition home or self-care (01) ==
LOC: M ED 04-17 09:23
DX: S00.93XA Contusion of unspecified part of head, initial encounter (principal); W05.0XXA Fall from non-moving wheelchair, initial encounter; E11.9 Type 2 diabetes mellitus without complications; F31.9 Bipolar disorder, unspecified; G43.909 Migraine, unspecified, not intractable, without status migrainosus; Z79.4 Long term (current) use of insulin; Z99.89 Dependence on other enabling machines and devices; Z91.013 Allergy to seafood; Z88.6 Allergy status to analgesic agent; Z88.8 Allergy status to other drugs, medicaments and biological substances; Y92.9 Unspecified place or not applicable; Y99.9 Unspecified external cause status; Y93.9 Activity, unspecified
CPT/HCPCS: 70450; 72125; 73030; 73060; 96372; 99284; J1815

== ENCOUNTER → 2022-04-24 | Outpatient (REF) ==
[~2022-04-24] MED LIST changes: +AQUAOIN12 TP; +FERR324T21 PO; +HUMA100I5 SC; +[UNRECOGNIZED DRUG - CODE] TP
[2022-04-24 10:47] LABS: HEMATOCRIT 35.4 % (36.0-47.0); HEMOGLOBIN 10.4 g/dl (12.0-15.5); MEAN CORPUSCULAR HEMOGLOBIN 26.3 pg (27.0-33.0); MEAN CORPUSCULAR HGB CONC 29.4 g/dl (32.0-36.5); MEAN CORPUSCULAR VOLUME 89.4 fl (80.0-96.0); PLATELET COUNT, AUTOMATED 270 10^3/uL (150-450); RED BLOOD COUNT 3.96 10^6/uL (4.00-5.40); WHITE BLOOD COUNT 7.8 10^3/uL (4.0-10.0)
[2022-04-24 11:40] LABS: ALBUMIN 2.6 GM/DL (3.2-5.2); ALT/SGPT 18 U/L (12-78); BILIRUBIN,TOTAL 0.2 MG/DL (0.2-1.0); BLOOD UREA NITROGEN 15 MG/DL (7-18); C REACTIVE PROTEIN QUANTITATIV 1.42 MG/DL (0.00-0.30); CALCIUM LEVEL 8.7 MG/DL (8.8-10.2); CARBON DIOXIDE LEVEL 31 MEQ/L (21-32); CHLORIDE LEVEL 96 MEQ/L (98-107); CREATININE FOR GFR 0.96 MG/DL (0.55-1.30); GLOMERULAR FILTRATION RATE > 60.0 (>45); GLUCOSE, FASTING 180 MG/DL (70-100); POTASSIUM SERUM 3.9 MEQ/L (3.5-5.1); SODIUM LEVEL 135 MEQ/L (136-145); TOTAL PROTEIN 7.2 GM/DL (6.4-8.2)
== END ==
LOC: SKLAB5 10:42
PROVIDERS: ATTEND Nurse Practitioner Family
DX: L03.90 Cellulitis, unspecified (principal); E03.9 Hypothyroidism, unspecified; I50.9 Heart failure, unspecified; R60.9 Edema, unspecified

== ENCOUNTER → 2022-05-26 | Outpatient (REF) | payer MEDICAID, OTHER, MEDICARE | LOC: SKLAB5 10:16 | PROVIDERS: ATTEND Internal Medicine | DX: R05.9 Cough, unspecified (principal); U09.9 Post COVID-19 condition, unspecified ==

== ENCOUNTER → 2022-06-09 | Outpatient (REF) | payer MEDICAID ==
[2022-06-09 11:45] LABS: HEMOGLOBIN A1c 9.5 %
== END ==
LOC: SKLAB5 11:42
PROVIDERS: ATTEND Internal Medicine
DX: E11.9 Type 2 diabetes mellitus without complications (principal)

== ENCOUNTER → 2022-06-19 | Outpatient (RCR) | payer MEDICAID, OTHER | LOC: M PT 05-29 14:20 | PROVIDERS: ATTEND Physician Assistant Medical | DX: I89.0 Lymphedema, not elsewhere classified (principal) ==

== ENCOUNTER 2022-07-15 12:45 | Outpatient (RCR) | payer MEDICAID | END 2022-07-20 | LOC: M PT 12:45 | PROVIDERS: ATTEND Physician Assistant Medical | DX: I89.0 Lymphedema, not elsewhere classified (principal) ==

== ENCOUNTER 2022-07-30 14:08 | Outpatient (RCR) | payer MEDICAID | END 2022-08-19 | LOC: M PT 14:08 | PROVIDERS: ATTEND Physician Assistant Medical | DX: I89.0 Lymphedema, not elsewhere classified (principal) ==

== ENCOUNTER → 2022-07-30 | Outpatient (REF) | payer MEDICAID ==
[2022-08-18 09:30] LABS: FREE T4 0.97 NG/DL (0.89-1.76); THYROID STIMULATING HORMONE 21.2 uIU/ML (0.55-4.78)
== END ==
LOC: SKLAB5 11:30
PROVIDERS: ATTEND Nurse Practitioner Family
DX: E03.9 Hypothyroidism, unspecified (principal)

== ENCOUNTER → 2022-07-31 | Outpatient (REF) | payer MEDICAID ==
[2022-07-31 01:28] LABS: APPEARANCE, URINE MANUAL CLOUDY (CLEAR); BILIRUBIN, URINE MANUAL NEGATIVE (NEGATIVE); BLOOD URINE MANUAL POSITIVE (NEGATIVE); COLOR, URINE MANUAL YELLOW (YELLOW); GLUCOSE, URINE (UA) MANUAL NEGATIVE (NEGATIVE); KETONE, URINE MANUAL NEGATIVE (NEGATIVE); LEUKOCYTE ESTERASE, URINE MAN POSITIVE (NEGATIVE); NITRITE, URINE MANUAL NEGATIVE (NEGATIVE); PROTEIN, URINE MANUAL 1+ mg/dL (NEGATIVE); UROBILINOGEN, URINE MANUAL NORMAL (NORMAL)
[2022-07-31 01:36] LABS: BACTERIA, URINE LARGE AMOUNT; RBC, URINE 30-40 /hpf (0-3); SQUAMOUS EPITHELIAL CELL URINE MOD AMOUNT /hpf (SMALL AMT); WBC, URINE TNTC /hpf (0-3)
[2022-07-31 01:37] LABS: HYALINE CAST, URINE NONE SEEN /lpf (0-1)
== END ==
LOC: SKLAB5 09:37
PROVIDERS: ATTEND Internal Medicine
DX: R41.0 Disorientation, unspecified (principal); R60.0 Localized edema

== ENCOUNTER → 2022-08-07 | Outpatient (REF) | payer MEDICAID ==
[2022-08-07 07:57] LABS: HEMATOCRIT 35.6 % (36.0-47.0); HEMOGLOBIN 11.1 g/dl (12.0-15.5); MEAN CORPUSCULAR HEMOGLOBIN 28.9 pg (27.0-33.0); MEAN CORPUSCULAR HGB CONC 31.2 g/dl (32.0-36.5); MEAN CORPUSCULAR VOLUME 92.7 fl (80.0-96.0); PLATELET COUNT, AUTOMATED 201 10^3/uL (150-450); RED BLOOD COUNT 3.84 10^6/uL (4.00-5.40); WHITE BLOOD COUNT 7.1 10^3/uL (4.0-10.0)
[2022-08-07 08:46] LABS: ALBUMIN 2.6 G/DL (3.2-5.2); ALT/SGPT 12 U/L (7.0-40); BILIRUBIN,TOTAL 0.2 MG/DL (0.3-1.2); BLOOD UREA NITROGEN 13 MG/DL (9-23); CALCIUM LEVEL 9.3 MG/DL (8.3-10.6); CARBON DIOXIDE LEVEL 34 MMOL/L (20-31); CHLORIDE LEVEL 98 MMOL/L (98-107); CREATININE FOR GFR 0.69 MG/DL (0.55-1.30); GLOMERULAR FILTRATION RATE > 60.0 (>45); GLUCOSE, FASTING 173 MG/DL (74-106); SODIUM LEVEL 139 MMOL/L (136-145); TOTAL PROTEIN 5.9 G/DL (5.7-8.2)
== END ==
LOC: SKLAB5 11:38
PROVIDERS: ATTEND Nurse Practitioner Family
DX: E03.9 Hypothyroidism, unspecified (principal); I50.9 Heart failure, unspecified

== ENCOUNTER → 2022-09-15 | Outpatient (REF) | payer MEDICAID ==
[2022-09-14 13:20] LABS: ALBUMIN 2.9 G/DL (3.2-5.2); ALKALINE PHOSPHATASE 58 U/L (46-116); ALT/SGPT 17 U/L (7.0-40); AST/SGOT 17 U/L (<34); BILIRUBIN,TOTAL 0.3 MG/DL (0.3-1.2); BLOOD UREA NITROGEN 19 MG/DL (9-23); CARBON DIOXIDE LEVEL 27 MMOL/L (20-31); CHLORIDE LEVEL 93 MMOL/L (98-107); CREATININE FOR GFR 0.73 MG/DL (0.55-1.30); GLOMERULAR FILTRATION RATE > 60.0 (>45); GLUCOSE, FASTING 163 MG/DL (74-106); POTASSIUM SERUM 3.9 MMOL/L (3.5-5.1); SODIUM LEVEL 136 MMOL/L (136-145); TOTAL PROTEIN 6.9 G/DL (5.7-8.2)
== END ==
LOC: SKLAB5 10:02
PROVIDERS: ATTEND Nurse Practitioner Family
DX: R41.82 Altered mental status, unspecified (principal)

== ENCOUNTER → 2022-10-09 | Outpatient (REF) | payer MEDICAID ==
[2022-10-09 07:43] LABS: HEMOGLOBIN A1c 6.9 % (4.0-6.0)
== END ==
LOC: SKLAB5 08:47
PROVIDERS: ATTEND Internal Medicine
DX: E11.9 Type 2 diabetes mellitus without complications (principal)

== ENCOUNTER → 2022-10-13 | Outpatient (REF) | payer MEDICAID ==
[2022-10-13 15:22] LABS: HEMATOCRIT 38.2 % (36.0-47.0); MEAN CORPUSCULAR HEMOGLOBIN 30.7 pg (27.0-33.0); MEAN CORPUSCULAR HGB CONC 31.4 g/dl (32.0-36.5); MEAN CORPUSCULAR VOLUME 97.7 fl (80.0-96.0); PLATELET COUNT, AUTOMATED 180 10^3/uL (150-450); RED BLOOD COUNT 3.91 10^6/uL (4.00-5.40); WHITE BLOOD COUNT 7.2 10^3/uL (4.0-10.0)
[2022-10-13 15:40] LABS: ALBUMIN 2.6 G/DL (3.2-5.2); ALKALINE PHOSPHATASE 53 U/L (46-116); ALT/SGPT 15 U/L (7.0-40); AST/SGOT 16 U/L (<34); BILIRUBIN,TOTAL 0.3 MG/DL (0.3-1.2); BLOOD UREA NITROGEN 12 MG/DL (9-23); CALCIUM LEVEL 8.4 MG/DL (8.3-10.6); CARBON DIOXIDE LEVEL 37 MMOL/L (20-31); CHLORIDE LEVEL 92 MMOL/L (98-107); CREATININE FOR GFR 0.77 MG/DL (0.55-1.30); GLOMERULAR FILTRATION RATE > 60.0 (>45); GLUCOSE, FASTING 135 MG/DL (74-106); POTASSIUM SERUM 3.2 MMOL/L (3.5-5.1); SODIUM LEVEL 136 MMOL/L (136-145); TOTAL PROTEIN 6.6 G/DL (5.7-8.2)
== END ==
LOC: SKLAB5 13:58
PROVIDERS: ATTEND Internal Medicine
DX: U07.1 COVID-19 (principal)

== ENCOUNTER → 2022-10-15 | Outpatient (REF) | payer MEDICAID ==
[2022-10-15 09:58] LABS: HEMATOCRIT 38.6 % (36.0-47.0); HEMOGLOBIN 12.3 g/dl (12.0-15.5); MEAN CORPUSCULAR HEMOGLOBIN 30.8 pg (27.0-33.0); MEAN CORPUSCULAR HGB CONC 31.9 g/dl (32.0-36.5); MEAN CORPUSCULAR VOLUME 96.5 fl (80.0-96.0); PLATELET COUNT, AUTOMATED 178 10^3/uL (150-450); WHITE BLOOD COUNT 4.9 10^3/uL (4.0-10.0)
[2022-10-15 10:24] LABS: ALBUMIN 2.7 G/DL (3.2-5.2); ALKALINE PHOSPHATASE 56 U/L (46-116); ALT/SGPT 15 U/L (7.0-40); AST/SGOT 12 U/L (<34); BILIRUBIN,TOTAL 0.2 MG/DL (0.3-1.2); BLOOD UREA NITROGEN 11 MG/DL (9-23); CALCIUM LEVEL 8.8 MG/DL (8.3-10.6); CARBON DIOXIDE LEVEL 36 MMOL/L (20-31); CHLORIDE LEVEL 93 MMOL/L (98-107); CREATININE FOR GFR 0.66 MG/DL (0.55-1.30); GLOMERULAR FILTRATION RATE > 60.0 (>45); GLUCOSE, FASTING 148 MG/DL (74-106); POTASSIUM SERUM 3.4 MMOL/L (3.5-5.1); SODIUM LEVEL 136 MMOL/L (136-145); TOTAL PROTEIN 6.3 G/DL (5.7-8.2)
== END ==
LOC: SKLAB5 13:40
PROVIDERS: ATTEND Internal Medicine
DX: U07.1 COVID-19 (principal)

== ENCOUNTER → 2022-10-19 | Outpatient (REF) | payer MEDICAID ==
[2022-10-19 11:58] LABS: HEMATOCRIT 39.3 % (36.0-47.0); HEMOGLOBIN 12.6 g/dl (12.0-15.5); MEAN CORPUSCULAR HEMOGLOBIN 30.9 pg (27.0-33.0); MEAN CORPUSCULAR HGB CONC 32.1 g/dl (32.0-36.5); MEAN CORPUSCULAR VOLUME 96.3 fl (80.0-96.0); PLATELET COUNT, AUTOMATED 178 10^3/uL (150-450); RED BLOOD COUNT 4.08 10^6/uL (4.00-5.40); WHITE BLOOD COUNT 7.3 10^3/uL (4.0-10.0)
[2022-10-19 12:29] LABS: ALBUMIN 2.7 G/DL (3.2-5.2); ALKALINE PHOSPHATASE 56 U/L (46-116); ALT/SGPT 13 U/L (7.0-40); AST/SGOT 13 U/L (<34); BILIRUBIN,TOTAL 0.3 MG/DL (0.3-1.2); BLOOD UREA NITROGEN 12 MG/DL (9-23); CALCIUM LEVEL 8.9 MG/DL (8.3-10.6); CARBON DIOXIDE LEVEL 33 MMOL/L (20-31); CHLORIDE LEVEL 94 MMOL/L (98-107); CREATININE FOR GFR 0.69 MG/DL (0.55-1.30); GLOMERULAR FILTRATION RATE > 60.0 (>45); GLUCOSE, FASTING 214 MG/DL (74-106); POTASSIUM SERUM 3.2 MMOL/L (3.5-5.1); SODIUM LEVEL 138 MMOL/L (136-145); TOTAL PROTEIN 6.5 G/DL (5.7-8.2)
== END ==
LOC: SKLAB5 10:59
PROVIDERS: ATTEND Internal Medicine
DX: U07.1 COVID-19 (principal)

== ENCOUNTER → 2022-10-22 | Outpatient (REF) | payer MEDICAID | LOC: SKLAB5 09:00 | PROVIDERS: ATTEND Internal Medicine | DX: U07.1 COVID-19 (principal); Z53.8 Procedure and treatment not carried out for other reasons ==

== ENCOUNTER → 2022-10-22 | Outpatient (REF) | payer MEDICAID ==
[2022-10-22 08:25] LABS: HEMOGLOBIN 11.9 g/dl (12.0-15.5); MEAN CORPUSCULAR HEMOGLOBIN 30.4 pg (27.0-33.0); MEAN CORPUSCULAR HGB CONC 31.3 g/dl (32.0-36.5); MEAN CORPUSCULAR VOLUME 96.9 fl (80.0-96.0); PLATELET COUNT, AUTOMATED 187 10^3/uL (150-450); RED BLOOD COUNT 3.92 10^6/uL (4.00-5.40); WHITE BLOOD COUNT 7.2 10^3/uL (4.0-10.0)
[2022-10-22 08:48] LABS: ALBUMIN 2.6 G/DL (3.2-5.2); ALKALINE PHOSPHATASE 51 U/L (46-116); ALT/SGPT 12 U/L (7.0-40); AST/SGOT 13 U/L (<34); BILIRUBIN,TOTAL 0.3 MG/DL (0.3-1.2); BLOOD UREA NITROGEN 10 MG/DL (9-23); CALCIUM LEVEL 8.4 MG/DL (8.3-10.6); CARBON DIOXIDE LEVEL 33 MMOL/L (20-31); CHLORIDE LEVEL 94 MMOL/L (98-107); CREATININE FOR GFR 0.75 MG/DL (0.55-1.30); GLOMERULAR FILTRATION RATE > 60.0 (>45); GLUCOSE, FASTING 93 MG/DL (74-106); POTASSIUM SERUM 3.2 MMOL/L (3.5-5.1); SODIUM LEVEL 138 MMOL/L (136-145); TOTAL PROTEIN 6.1 G/DL (5.7-8.2)
== END ==
LOC: SKLAB5 09:01
PROVIDERS: ATTEND Internal Medicine
DX: U07.1 COVID-19 (principal)

== ENCOUNTER 2022-10-29 09:58 | Outpatient (RCR) | payer MEDICAID | END 2022-11-17 | LOC: M PT 09:58 | PROVIDERS: ATTEND Physician Assistant Medical | DX: I89.0 Lymphedema, not elsewhere classified (principal) ==

== ENCOUNTER → 2022-11-06 | Outpatient (REF) | payer MEDICAID ==
[2022-11-06 08:30] LABS: HEMOGLOBIN 12.2 g/dl (12.0-15.5); MEAN CORPUSCULAR HEMOGLOBIN 30.8 pg (27.0-33.0); MEAN CORPUSCULAR HGB CONC 32.1 g/dl (32.0-36.5); PLATELET COUNT, AUTOMATED 183 10^3/uL (150-450); RED BLOOD COUNT 3.96 10^6/uL (4.00-5.40); WHITE BLOOD COUNT 7.8 10^3/uL (4.0-10.0)
[2022-11-06 08:37] LABS: ALBUMIN 2.5 G/DL (3.2-5.2); ALKALINE PHOSPHATASE 46 U/L (46-116); ALT/SGPT 15 U/L (7.0-40); AST/SGOT 11 U/L (<34); BILIRUBIN,TOTAL 0.2 MG/DL (0.3-1.2); BLOOD UREA NITROGEN 17 MG/DL (9-23); CALCIUM LEVEL 8.8 MG/DL (8.3-10.6); CARBON DIOXIDE LEVEL 36 MMOL/L (20-31); CHLORIDE LEVEL 96 MMOL/L (98-107); CREATININE FOR GFR 0.66 MG/DL (0.55-1.30); GLOMERULAR FILTRATION RATE > 60.0 (>45); GLUCOSE, FASTING 205 MG/DL (74-106); POTASSIUM SERUM 3.7 MMOL/L (3.5-5.1); SODIUM LEVEL 137 MMOL/L (136-145)
== END ==
LOC: SKLAB5 13:59
PROVIDERS: ATTEND Internal Medicine
DX: E03.9 Hypothyroidism, unspecified (principal); I50.9 Heart failure, unspecified

== ENCOUNTER → 2022-11-09 | Outpatient (REF) | payer MEDICAID ==
[2022-11-09 10:02] LABS: BASO # 0.1 10^3/uL (0.0-0.2); BASO % 0.7 % (0.0-1.0); EOS # 0.3 10^3/uL (0.0-0.5); EOS % 4.5 % (0.0-3.0); HEMATOCRIT 39.9 % (36.0-47.0); HEMOGLOBIN 12.8 g/dl (12.0-15.5); LYMPH # 1.5 10^3/uL (1.5-5.0); MEAN CORPUSCULAR HEMOGLOBIN 31.3 pg (27.0-33.0); MEAN CORPUSCULAR HGB CONC 32.1 g/dl (32.0-36.5); MEAN CORPUSCULAR VOLUME 97.6 fl (80.0-96.0); MONO # 0.8 10^3/uL (0.0-0.8); MONO % 11.1 % (2.0-8.0); NEUTROPHILS # 4.3 10^3/uL (1.5-8.5); NEUTROPHILS % 60.6 % (36.0-66.0); PLATELET COUNT, AUTOMATED 187 10^3/uL (150-450); RED BLOOD COUNT 4.09 10^6/uL (4.00-5.40)
[2022-11-09 10:14] LABS: HEMOGLOBIN A1c 6.8 % (4.0-6.0)
[2022-11-09 10:51] LABS: ALBUMIN 2.6 G/DL (3.2-5.2); ALKALINE PHOSPHATASE 51 U/L (46-116); ALT/SGPT 18 U/L (7.0-40); AST/SGOT 19 U/L (<34); BILIRUBIN,TOTAL 0.3 MG/DL (0.3-1.2); BLOOD UREA NITROGEN 20 MG/DL (9-23); CALCIUM LEVEL 9.4 MG/DL (8.3-10.6); CARBON DIOXIDE LEVEL 35 MMOL/L (20-31); CHLORIDE LEVEL 96 MMOL/L (98-107); CREATININE FOR GFR 0.65 MG/DL (0.55-1.30); GLOMERULAR FILTRATION RATE > 60.0 (>45); GLUCOSE, FASTING 116 MG/DL (74-106); POTASSIUM SERUM 3.8 MMOL/L (3.5-5.1); SODIUM LEVEL 137 MMOL/L (136-145); THYROID STIMULATING HORMONE 6.435 uIU/ML (0.55-4.78); THYROXINE (T4) 11.2 UG/DL (4.5-10.9); TOTAL PROTEIN 6.5 G/DL (5.7-8.2)
== END ==
LOC: SKLAB5 09:20
PROVIDERS: ATTEND Nurse Practitioner Family
DX: E03.9 Hypothyroidism, unspecified (principal); R41.0 Disorientation, unspecified

== ENCOUNTER → 2022-11-10 | Outpatient (REF) | payer MEDICAID ==
[2022-11-10 11:01] LABS: APPEARANCE, URINE CLEAR (CLEAR); BACTERIA, URINE AUTO NEGATIVE (NEGATIVE); BILIRUBIN, URINE AUTO NEGATIVE (NEGATIVE); BLOOD, URINE BLOOD 1+ (NEGATIVE); COLOR, URINE YELLOW (YELLOW); GLUCOSE, URINE (UA) AUTO NEGATIVE (NEGATIVE); KETONE, URINE AUTO NEGATIVE (NEGATIVE); LEUKOCYTE ESTERASE, URINE AUTO NEGATIVE (NEGATIVE); MUCUS, URINE SMALL (NEGATIVE); NITRITE, URINE AUTO NEGATIVE (NEGATIVE); PROTEIN, URINE AUTO NEGATIVE (NEGATIVE); RBC, URINE AUTO 1 /HPF (0-3); SPECIFIC GRAVITY URINE AUTO 1.012 (1.002-1.035); SQUAMOUS EPITHELIAL CELL UR AU 1 /HPF (0-6); UROBILINOGEN, URINE AUTO 0.2 mg/dL (0.0-2.0); WBC, URINE AUTO 1 /HPF (0-3)
== END ==
LOC: SKLAB5 10:15
PROVIDERS: ATTEND Nurse Practitioner Family
DX: E03.9 Hypothyroidism, unspecified (principal)

== ENCOUNTER → 2023-02-05 | Outpatient (REF) | payer MEDICAID ==
[~2023-02-05] MED LIST changes: +FLUT50SP17 NARES; -FLUTISP NARES
[2023-02-05 10:37] LABS: HEMATOCRIT 36.3 % (36.0-47.0); HEMOGLOBIN 11.7 g/dl (12.0-15.5); MEAN CORPUSCULAR HEMOGLOBIN 30.6 pg (27.0-33.0); MEAN CORPUSCULAR HGB CONC 32.2 g/dl (32.0-36.5); PLATELET COUNT, AUTOMATED 202 10^3/uL (150-450); RED BLOOD COUNT 3.82 10^6/uL (4.00-5.40); WHITE BLOOD COUNT 12.9 10^3/uL (4.0-10.0)
[2023-02-05 11:04] LABS: ALBUMIN 2.7 G/DL (3.2-5.2); ALKALINE PHOSPHATASE 57 U/L (46-116); ALT/SGPT 14 U/L (7.0-40); AST/SGOT 9 U/L (<34); BILIRUBIN,TOTAL 0.3 MG/DL (0.3-1.2); BLOOD UREA NITROGEN 27 MG/DL (9-23); CALCIUM LEVEL 9.2 MG/DL (8.3-10.6); CARBON DIOXIDE LEVEL 32 MMOL/L (20-31); CHLORIDE LEVEL 94 MMOL/L (98-107); CREATININE FOR GFR 0.65 MG/DL (0.55-1.30); GLOMERULAR FILTRATION RATE > 60.0 (>45); GLUCOSE, FASTING 274 MG/DL (74-106); POTASSIUM SERUM 3.1 MMOL/L (3.5-5.1); SODIUM LEVEL 135 MMOL/L (136-145); TOTAL PROTEIN 6.4 G/DL (5.7-8.2)
== END ==
LOC: SKLAB5 11:13
PROVIDERS: ATTEND Internal Medicine
DX: I50.9 Heart failure, unspecified (principal); E03.9 Hypothyroidism, unspecified

== ENCOUNTER 2023-02-25 16:36 | Emergency (ER) | payer MEDICAID ==
[~2023-02-25] VITALS: Ht 149.9 cm; Wt 120.9 kg
[2023-02-25 19:29] LABS: BASO # 0.1 10^3/uL (0.0-0.2); BASO % 0.9 % (0.0-1.0); EOS # 0.2 10^3/uL (0.0-0.5); EOS % 1.9 % (0.0-3.0); HEMATOCRIT 41.8 % (36.0-47.0); HEMOGLOBIN 13.7 g/dl (12.0-15.5); LYMPH # 1.9 10^3/uL (1.5-5.0); LYMPH % 19.9 % (24.0-44.0); MEAN CORPUSCULAR HEMOGLOBIN 31.3 pg (27.0-33.0); MEAN CORPUSCULAR HGB CONC 32.8 g/dl (32.0-36.5); MEAN CORPUSCULAR VOLUME 95.4 fl (80.0-96.0); MONO # 1.1 10^3/uL (0.0-0.8); MONO % 11.6 % (2.0-8.0); NEUTROPHILS % 64.1 % (36.0-66.0); PLATELET COUNT, AUTOMATED 208 10^3/uL (150-450); RED BLOOD COUNT 4.38 10^6/uL (4.00-5.40); WHITE BLOOD COUNT 9.4 10^3/uL (4.0-10.0)
[2023-02-25 19:52] LABS: VALPROIC ACID (DEPAKOTE) 68.9 UG/ML (50.0-100.0)
[2023-02-25 19:53] LABS: ALKALINE PHOSPHATASE 60 U/L (46-116); ALT/SGPT 12 U/L (7.0-40); AST/SGOT < 8 U/L (<34); BILIRUBIN,DIRECT 0.1 MG/DL (<0.4); BILIRUBIN,TOTAL 0.3 MG/DL (0.3-1.2); BLOOD UREA NITROGEN 35 MG/DL (9-23); CALCIUM LEVEL 9.7 MG/DL (8.3-10.6); CARBON DIOXIDE LEVEL 34 MMOL/L (20-31); CHLORIDE LEVEL 94 MMOL/L (98-107); CREATININE FOR GFR 0.75 MG/DL (0.55-1.30); GLOMERULAR FILTRATION RATE > 60.0 (>45); GLUCOSE, FASTING 236 MG/DL (74-106); MAGNESIUM LEVEL 1.5 MG/DL (1.8-2.4); PHOSPHORUS LEVEL 4.2 MG/DL (2.4-5.1); POTASSIUM SERUM 3.5 MMOL/L (3.5-5.1); SODIUM LEVEL 135 MMOL/L (136-145); TOTAL PROTEIN 6.9 G/DL (5.7-8.2)
[2023-02-25 20:19] VITALS: TEMP 97.3
[2023-02-25] MEDS ORDERED: MAG SULF 1GM/100ML (MAG RUN) 1 GM in IV 1 EA IV ONE (20:55)
[2023-02-25] MEDS ORDERED: VIMP100T PO (21:12)
[2023-02-25 21:15] VITALS: O2SAT 96
[2023-02-25 21:30] VITALS: BP 110/71
== END 2023-02-25 22:29 | disposition home or self-care (01) ==
LOC: EDBD 16:36 → M ED 16:36
DX: G40.909 Epilepsy, unspecified, not intractable, without status epilepticus (principal); E83.42 Hypomagnesemia; E11.9 Type 2 diabetes mellitus without complications; I10 Essential (primary) hypertension; F32.A Depression, unspecified; E03.9 Hypothyroidism, unspecified; Z79.02 Long term (current) use of antithrombotics/antiplatelets; Z79.811 Long term (current) use of aromatase inhibitors; Z79.4 Long term (current) use of insulin; Z79.899 Other long term (current) drug therapy
CPT/HCPCS: 36415; 70450; 80048; 80076; 80164; 82140; 82330; 83605; 83735; 84100; 85025; 93041; 94760; 96374; 99285; J3475

== ENCOUNTER 2023-03-11 18:21 | Emergency (ER) | payer MEDICAID ==
[2023-03-11 19:19] LABS: BASO # 0.1 10^3/uL (0.0-0.2); BASO % 0.7 % (0.0-1.0); EOS # 0.3 10^3/uL (0.0-0.5); EOS % 2.7 % (0.0-3.0); HEMATOCRIT 39.6 % (36.0-47.0); HEMOGLOBIN 12.9 g/dl (12.0-15.5); LYMPH # 2.4 10^3/uL (1.5-5.0); LYMPH % 25.7 % (24.0-44.0); MEAN CORPUSCULAR HGB CONC 32.6 g/dl (32.0-36.5); MEAN CORPUSCULAR VOLUME 95.2 fl (80.0-96.0); MONO # 0.8 10^3/uL (0.0-0.8); MONO % 8.4 % (2.0-8.0); NEUTROPHILS # 5.7 10^3/uL (1.5-8.5); NEUTROPHILS % 60.8 % (36.0-66.0); PLATELET COUNT, AUTOMATED 208 10^3/uL (150-450); RED BLOOD COUNT 4.16 10^6/uL (4.00-5.40); WHITE BLOOD COUNT 9.4 10^3/uL (4.0-10.0)
[2023-03-11 19:40] LABS: ERYTHROCYTE SEDIMENTATION RATE 33 mm/hr (0-30)
[2023-03-11 19:44] LABS: BLOOD UREA NITROGEN 30 MG/DL (9-23); CALCIUM LEVEL 9.3 MG/DL (8.3-10.6); CARBON DIOXIDE LEVEL 37 MMOL/L (20-31); CHLORIDE LEVEL 91 MMOL/L (98-107); CK-MB VALUE MASS < 1.0 NG/ML (<3.6); CPK CREATINE PHOSPHOKINASE < 15 U/L (34-145); CREATININE FOR GFR 0.74 MG/DL (0.55-1.30); GLOMERULAR FILTRATION RATE > 60.0 (>45); GLUCOSE, FASTING 208 MG/DL (74-106); POTASSIUM SERUM 3.9 MMOL/L (3.5-5.1); SODIUM LEVEL 133 MMOL/L (136-145)
[2023-03-11 21:06] LABS: CK-MB VALUE MASS < 1.0 NG/ML (<3.6)
[2023-03-11 21:08] LABS: CPK CREATINE PHOSPHOKINASE < 15 U/L (34-145)
[2023-03-11 22:40] LABS: THYROID STIMULATING HORMONE 2.632 uIU/ML (0.55-4.78)
[2023-03-11 23:06] LABS: APPEARANCE, URINE CLOUDY (CLEAR); BACTERIA, URINE AUTO 3+ (NEGATIVE); BILIRUBIN, URINE AUTO NEGATIVE (NEGATIVE); BLOOD, URINE BLOOD 3+ (NEGATIVE); COLOR, URINE RED (YELLOW); GLUCOSE, URINE (UA) AUTO NEGATIVE (NEGATIVE); KETONE, URINE AUTO TRACE mg/dL (NEGATIVE); LEUKOCYTE ESTERASE, URINE AUTO 3+ (NEGATIVE); NITRITE, URINE AUTO NEGATIVE (NEGATIVE); PROTEIN, URINE AUTO 2+ mg/dL (NEGATIVE); RBC, URINE AUTO TNTC /HPF (0-3); SQUAMOUS EPITHELIAL CELL UR AU 2 /HPF (0-6); UROBILINOGEN, URINE AUTO 0.2 mg/dL (0.0-2.0); WBC, URINE AUTO TNTC /HPF (0-3)
[2023-03-11 23:31] VITALS: BP 169/63
[2023-03-11 23:36] VITALS: TEMP 97.8; O2SAT 96
== END 2023-03-11 23:55 | disposition home or self-care (01) ==
LOC: M ED 18:21 → EDBD 18:21 → M ED 23:55
DX: R53.1 Weakness (principal); R79.9 Abnormal finding of blood chemistry, unspecified; E11.9 Type 2 diabetes mellitus without complications; I10 Essential (primary) hypertension; E78.5 Hyperlipidemia, unspecified; F32.A Depression, unspecified; G43.909 Migraine, unspecified, not intractable, without status migrainosus; Z79.4 Long term (current) use of insulin; Z88.6 Allergy status to analgesic agent; Z88.8 Allergy status to other drugs, medicaments and biological substances; Z91.013 Allergy to seafood

== ENCOUNTER → 2023-03-11 | Outpatient (REF) | payer MEDICAID ==
[~2023-03-11] MED LIST changes: +VIMP100T PO
[2023-03-11 16:09] LABS: VENOUS BASE EXCESS 7.6 (-2.0-2.0); VENOUS HCO3 34.8 MMOL/L (23.0-27.0); VENOUS PARTIAL PRESSURE CO2 60.6 mmHg (38.0-50.0); VENOUS PARTIAL PRESSURE O2 53.9 mmHg (30.0-50.0); VENOUS PH 7.377 UNITS (7.330-7.430); VENOUS STANDARD HCO3 31.1 MMOL/L; VENOUS TOTAL CO2 36.7 MMOL/L (24.0-28.0)
[2023-03-11 16:27] LABS: HEMATOCRIT 38.5 % (36.0-47.0); HEMOGLOBIN 12.2 g/dl (12.0-15.5); MEAN CORPUSCULAR HEMOGLOBIN 30.7 pg (27.0-33.0); MEAN CORPUSCULAR HGB CONC 31.7 g/dl (32.0-36.5); PLATELET COUNT, AUTOMATED 184 10^3/uL (150-450); RED BLOOD COUNT 3.97 10^6/uL (4.00-5.40); WHITE BLOOD COUNT 9.4 10^3/uL (4.0-10.0)
[2023-03-11 16:47] LABS: ALBUMIN 2.6 G/DL (3.2-5.2); ALKALINE PHOSPHATASE 52 U/L (46-116); ALT/SGPT 11 U/L (7.0-40); AST/SGOT < 8 U/L (<34); BILIRUBIN,TOTAL 0.2 MG/DL (0.3-1.2); BLOOD UREA NITROGEN 31 MG/DL (9-23); CALCIUM LEVEL 9.1 MG/DL (8.3-10.6); CARBON DIOXIDE LEVEL 32 MMOL/L (20-31); CHLORIDE LEVEL 91 MMOL/L (98-107); CREATININE FOR GFR 0.68 MG/DL (0.55-1.30); GLOMERULAR FILTRATION RATE > 60.0 (>45); GLUCOSE, FASTING 275 MG/DL (74-106); POTASSIUM SERUM 3.4 MMOL/L (3.5-5.1); SODIUM LEVEL 132 MMOL/L (136-145)
[2023-03-11 16:48] LABS: FREE T4 1.38 NG/DL (0.89-1.76)
[2023-03-11 16:51] LABS: CPK CREATINE PHOSPHOKINASE < 15 U/L (34-145)
== END ==
LOC: SKLAB5 15:05
PROVIDERS: ATTEND Internal Medicine
DX: G93.40 Encephalopathy, unspecified (principal); R94.31 Abnormal electrocardiogram [ECG] [EKG]

== ENCOUNTER → 2023-05-07 | Outpatient (REF) | payer MEDICAID ==
[~2023-05-07] MED LIST changes: +DICL100G10 TOP; -DICL1GEL3 TOP; -GABA-283 PO; +GABA-284 PO; -LIDO1CRE42 TOP; +LIDO30CR18 TOP
[2023-05-07 06:50] LABS: HEMATOCRIT 35.9 % (36.0-47.0); HEMOGLOBIN 11.4 g/dl (12.0-15.5); MEAN CORPUSCULAR HEMOGLOBIN 31.1 pg (27.0-33.0); MEAN CORPUSCULAR HGB CONC 31.8 g/dl (32.0-36.5); MEAN CORPUSCULAR VOLUME 98.1 fl (80.0-96.0); PLATELET COUNT, AUTOMATED 184 10^3/uL (150-450); RED BLOOD COUNT 3.66 10^6/uL (4.00-5.40); WHITE BLOOD COUNT 7.8 10^3/uL (4.0-10.0)
[2023-05-07 07:19] LABS: ALBUMIN 2.6 G/DL (3.2-5.2); ALKALINE PHOSPHATASE 57 U/L (46-116); ALT/SGPT < 9 U/L (7.0-40); AST/SGOT < 8 U/L (<34); BILIRUBIN,TOTAL 0.3 MG/DL (0.3-1.2); BLOOD UREA NITROGEN 17 MG/DL (9-23); CARBON DIOXIDE LEVEL 33 MMOL/L (20-31); CHLORIDE LEVEL 98 MMOL/L (98-107); CREATININE FOR GFR 0.67 MG/DL (0.55-1.30); GLOMERULAR FILTRATION RATE > 60.0 (>45); GLUCOSE, FASTING 128 MG/DL (74-106); POTASSIUM SERUM 3.5 MMOL/L (3.5-5.1); SODIUM LEVEL 137 MMOL/L (136-145); TOTAL PROTEIN 6.2 G/DL (5.7-8.2)
== END ==
LOC: SKLAB5 07:00
PROVIDERS: ATTEND Internal Medicine
DX: E03.9 Hypothyroidism, unspecified (principal); I50.9 Heart failure, unspecified

== ENCOUNTER → 2023-08-24 | Outpatient (CLI) | payer MEDICAID ==
[~2023-08-24] MED LIST changes: -FLUT50SP17 NARES; +FLUTISP NARES
== END ==
LOC: CANPRECLI → M SLEEP 08:22
PROVIDERS: ATTEND Psychiatry & Neurology Neurology
DX: R56.9 Unspecified convulsions (principal); Z53.9 Procedure and treatment not carried out, unspecified reason

== ENCOUNTER → 2023-09-01 | Outpatient (CLI) | payer MEDICAID | LOC: M SLEEP 09:28 | PROVIDERS: ATTEND Psychiatry & Neurology Neurology | DX: R56.9 Unspecified convulsions (principal) ==

== ENCOUNTER 2023-09-21 02:48 | Emergency (ER) | payer MEDICAID ==
[2023-09-21 04:20] LABS: BASO # 0.1 10^3/uL (0.0-0.2); BASO % 0.6 % (0.0-1.0); EOS # 0.3 10^3/uL (0.0-0.5); HEMATOCRIT 39.5 % (36.0-47.0); HEMOGLOBIN 12.9 g/dl (12.0-15.5); LYMPH # 2.8 10^3/uL (1.5-5.0); LYMPH % 34.5 % (24.0-44.0); MEAN CORPUSCULAR HEMOGLOBIN 31.5 pg (27.0-33.0); MEAN CORPUSCULAR HGB CONC 32.7 g/dl (32.0-36.5); MEAN CORPUSCULAR VOLUME 96.3 fl (80.0-96.0); MONO # 0.8 10^3/uL (0.0-0.8); MONO % 9.3 % (2.0-8.0); NEUTROPHILS # 4.2 10^3/uL (1.5-8.5); NEUTROPHILS % 51.1 % (36.0-66.0); PLATELET COUNT, AUTOMATED 215 10^3/uL (150-450); WHITE BLOOD COUNT 8.2 10^3/uL (4.0-10.0)
[2023-09-21 04:46] LABS: ETHYL ALCOHOL (ETHANOL) < 0.003 % (0.000-0.010)
[2023-09-21 04:48] LABS: ALBUMIN 3.1 G/DL (3.2-5.2); ALKALINE PHOSPHATASE 61 U/L (46-116); ALT/SGPT 13 U/L (7.0-40); AST/SGOT 22 U/L (<34); BILIRUBIN,DIRECT < 0.1 MG/DL (<0.4); BILIRUBIN,TOTAL 0.2 MG/DL (0.3-1.2); BLOOD UREA NITROGEN 19 MG/DL (9-23); CARBON DIOXIDE LEVEL 33 MMOL/L (20-31); CHLORIDE LEVEL 97 MMOL/L (98-107); CK-MB VALUE MASS < 1.0 NG/ML (<3.6); CREATININE FOR GFR 0.59 MG/DL (0.55-1.30); GLOMERULAR FILTRATION RATE > 60.0 (>45); GLUCOSE, FASTING 200 MG/DL (74-106); POTASSIUM SERUM 4.9 MMOL/L (3.5-5.1); SALICYLATE LEVEL < 3.0 MG/DL (<30); SODIUM LEVEL 136 MMOL/L (136-145); TOTAL PROTEIN 7.1 G/DL (5.7-8.2)
[2023-09-21 04:49] LABS: RSV AMPLIFICATION NEGATIVE (NEGATIVE)
[2023-09-21 04:51] LABS: THYROID STIMULATING HORMONE 13.259 uIU/ML (0.55-4.78)
[2023-09-21 04:54] LABS: CPK CREATINE PHOSPHOKINASE 32 U/L (34-145); MB/CK RELATIVE INDEX 3.12 (< OR =4)
[2023-09-21 05:18] VITALS: TEMP 98.1
[2023-09-21] MEDS ORDERED: AMIT50TA PO (05:28)
[2023-09-21] MEDS ORDERED: JANU100T PO (05:29)
[2023-09-21] MEDS ORDERED: OMEP-173 PO (05:30)
[2023-09-21] MEDS ORDERED: ISOVUE-370 76% 100ML VIAL As Ordered ONE (05:51)
[2023-09-21 06:04] LABS: FREE T4 1.31 NG/DL (0.89-1.76)
[2023-09-21 06:09] LABS: ABG BASE EXCESS 6.4 (-2.0-2.0); ABG HCO3 32.5 MMOL/L (22.0-26.0); ABG O2 SATURATION 96.1 % (95.0-99.0); ABG PARTIAL PRESSURE CO2 52.5 mmHg (35.0-45.0); ABG PARTIAL PRESSURE O2 86.8 mmHg (75.0-100.0); ABG STANDARD HCO3 30.3 MMOL/L. (22.0-26.0); ABG TOTAL CO2 34.1 MMOL/L (23.0-31.0); ABG pH (ARTERIAL) 7.409 UNITS (7.350-7.450)
[2023-09-21 06:17] LABS: CK-MB VALUE MASS < 1.0 NG/ML (<3.6)
[2023-09-21 06:25] LABS: CPK CREATINE PHOSPHOKINASE 16 U/L (34-145); MB/CK RELATIVE INDEX 6.25 (< OR =4)
[2023-09-21 06:26] LABS: VALPROIC ACID (DEPAKOTE) 97.4 UG/ML (50.0-100.0)
[2023-09-21] MEDS ORDERED: LACOSAMIDE 50 MG TAB (VIMPAT) PO ONE (06:45)
[2023-09-21] MEDS ORDERED: VIMP150T PO (06:54)
[2023-09-21 07:37] VITALS: BP 129/59; O2SAT 97
== END 2023-09-21 07:39 | disposition home or self-care (01) ==
LOC: EDBD 02:48 → M ED 02:48
DX: G40.A09 Absence epileptic syndrome, not intractable, without status epilepticus (principal); K21.9 Gastro-esophageal reflux disease without esophagitis; F41.1 Generalized anxiety disorder; E11.9 Type 2 diabetes mellitus without complications; Z86.79 Personal history of other diseases of the circulatory system; Z79.4 Long term (current) use of insulin; Z88.6 Allergy status to analgesic agent; Z88.8 Allergy status to other drugs, medicaments and biological substances; Z91.013 Allergy to seafood; Z79.83 Long term (current) use of bisphosphonates; Z79.891 Long term (current) use of opiate analgesic; Z79.899 Other long term (current) drug therapy
CPT/HCPCS: 36415; 36600; 70450; 70496; 70498; 71045; 80048; 80076; 80143; 80164; 82077; 82140; 82550; 82553; 82803; 83605; 84439; 84443; 85025; 87040; 87077; 87631; 93005; 93041; 94760; 99285; Q9967

== ENCOUNTER → 2023-11-05 | Outpatient (REF) | payer MEDICAID ==
[~2023-11-05] MED LIST changes: +AMIT50TA PO; -MIRA1POW3 PO; +MIRA33506 PO; +OMEP-173 PO; +VIMP150T PO
[2023-11-05 11:27] LABS: HEMATOCRIT 38.3 % (36.0-47.0); HEMOGLOBIN 12.3 g/dl (12.0-15.5); MEAN CORPUSCULAR HEMOGLOBIN 31.3 pg (27.0-33.0); MEAN CORPUSCULAR HGB CONC 32.1 g/dl (32.0-36.5); MEAN CORPUSCULAR VOLUME 97.5 fl (80.0-96.0); PLATELET COUNT, AUTOMATED 184 10^3/uL (150-450); RED BLOOD COUNT 3.93 10^6/uL (4.00-5.40); WHITE BLOOD COUNT 6.4 10^3/uL (4.0-10.0)
[2023-11-05 11:55] LABS: ALKALINE PHOSPHATASE 59 U/L (46-116); ALT/SGPT 10 U/L (7.0-40); AST/SGOT < 8 U/L (<34); BILIRUBIN,TOTAL 0.2 MG/DL (0.3-1.2); BLOOD UREA NITROGEN 18 MG/DL (9-23); CALCIUM LEVEL 8.8 MG/DL (8.3-10.6); CARBON DIOXIDE LEVEL 33 MMOL/L (20-31); CHLORIDE LEVEL 98 MMOL/L (98-107); CREATININE FOR GFR 0.61 MG/DL (0.55-1.30); GLOMERULAR FILTRATION RATE > 60.0 (>45); GLUCOSE, FASTING 220 MG/DL (74-106); POTASSIUM SERUM 3.9 MMOL/L (3.5-5.1); SODIUM LEVEL 136 MMOL/L (136-145); TOTAL PROTEIN 6.6 G/DL (5.7-8.2)
[2023-11-05 12:02] LABS: THYROID STIMULATING HORMONE 4.778 uIU/ML (0.55-4.78)
== END ==
LOC: SKLAB5 11:06
PROVIDERS: ATTEND Internal Medicine
DX: E03.9 Hypothyroidism, unspecified (principal); I50.9 Heart failure, unspecified

== ENCOUNTER → 2023-12-01 | Outpatient (REF) | payer MEDICARE, MEDICAID ==
[~2023-12-01] MED LIST changes: -MELA1TAB9 PO; +MELA5TAB58 PO
[2023-12-01 17:17] LABS: HEMOGLOBIN A1c 7.7 % (4.0-6.0)
== END ==
LOC: SKLAB5 15:24
PROVIDERS: ATTEND Nurse Practitioner Family
DX: E11.9 Type 2 diabetes mellitus without complications (principal); G40.909 Epilepsy, unspecified, not intractable, without status epilepticus

== ENCOUNTER 2023-12-11 23:22 | Inpatient (IN) | payer MEDICAID, MEDICARE ==
[~2023-12-11] VITALS: Ht 175.3 cm; Wt 119.5 kg
[2023-12-11 23:56] LABS: VENOUS BASE EXCESS 5.7 (-2.0-2.0); VENOUS HCO3 32.3 MMOL/L (23.0-27.0); VENOUS O2 SATURATION 85.4 % (60.0-80.0); VENOUS PARTIAL PRESSURE CO2 54.8 mmHg (38.0-50.0); VENOUS PARTIAL PRESSURE O2 52.8 mmHg (30.0-50.0); VENOUS PH 7.388 UNITS (7.330-7.430); VENOUS STANDARD HCO3 29.3 MMOL/L
[2023-12-11 23:57] LABS: IONIZED CALCIUM 4.1 MG/DL (4.5-5.3)
[2023-12-12 00:27] LABS: ABG HCO3 26.2 MMOL/L (22.0-26.0); ABG O2 SATURATION 96.6 % (95.0-99.0); ABG PARTIAL PRESSURE CO2 39.4 mmHg (35.0-45.0); ABG STANDARD HCO3 26.3 MMOL/L. (22.0-26.0); ABG TOTAL CO2 27.4 MMOL/L (23.0-31.0); ABG pH (ARTERIAL) 7.441 UNITS (7.350-7.450)
[2023-12-12 00:37] LABS: BASO % 0.4 % (0.0-1.0); EOS # 0.1 10^3/uL (0.0-0.5); EOS % 1.4 % (0.0-3.0); HEMATOCRIT 40.5 % (36.0-47.0); HEMOGLOBIN 13.1 g/dl (12.0-15.5); LYMPH % 32.2 % (24.0-44.0); MEAN CORPUSCULAR HGB CONC 32.3 g/dl (32.0-36.5); MONO % 11.1 % (2.0-8.0); NEUTROPHILS % 53.6 % (36.0-66.0); PLATELET COUNT, AUTOMATED 180 10^3/uL (150-450); RED BLOOD COUNT 4.22 10^6/uL (4.00-5.40); WHITE BLOOD COUNT 9.3 10^3/uL (4.0-10.0)
[2023-12-12 00:40] LABS: ALKALINE PHOSPHATASE 50 U/L (46-116); ALT/SGPT 16 U/L (7.0-40); AST/SGOT 46 U/L (<34); BILIRUBIN,DIRECT < 0.1 MG/DL (<0.4); BILIRUBIN,TOTAL 0.2 MG/DL (0.3-1.2); BLOOD UREA NITROGEN 20 MG/DL (9-23); CALCIUM LEVEL 9.1 MG/DL (8.3-10.6); CARBON DIOXIDE LEVEL 33 MMOL/L (20-31); CHLORIDE LEVEL 94 MMOL/L (98-107); CREATININE FOR GFR 0.63 MG/DL (0.55-1.30); GLOMERULAR FILTRATION RATE > 60.0 (>45); GLUCOSE, FASTING 186 MG/DL (74-106); MAGNESIUM LEVEL 1.6 MG/DL (1.8-2.4); PHOSPHORUS LEVEL 4.5 MG/DL (2.4-5.1); POTASSIUM SERUM 5.5 MMOL/L (3.5-5.1); SODIUM LEVEL 133 MMOL/L (136-145)
[2023-12-12] MEDS ORDERED: ISOVUE-370 76% 100ML VIAL As Ordered ONE (00:56)
[2023-12-12] MEDS: NS 1,000 ML IV ONE (02:32)
[2023-12-12 03:46] LABS: APPEARANCE, URINE CLOUDY (CLEAR); BACTERIA, URINE AUTO NEGATIVE (NEGATIVE); BILIRUBIN, URINE AUTO NEGATIVE (NEGATIVE); BLOOD, URINE BLOOD NEGATIVE (NEGATIVE); COLOR, URINE YELLOW (YELLOW); GLUCOSE, URINE (UA) AUTO NEGATIVE (NEGATIVE); KETONE, URINE AUTO NEGATIVE (NEGATIVE); LEUKOCYTE ESTERASE, URINE AUTO 3+ (NEGATIVE); NITRITE, URINE AUTO NEGATIVE (NEGATIVE); PROTEIN, URINE AUTO 1+ mg/dL (NEGATIVE); RBC, URINE AUTO 7 /HPF (0-3); SPECIFIC GRAVITY URINE AUTO 1.034 (1.002-1.035); SQUAMOUS EPITHELIAL CELL UR AU 1 /HPF (0-6); UROBILINOGEN, URINE AUTO 0.2 mg/dL (0.0-2.0); WBC, URINE AUTO TNTC /HPF (0-3)
[2023-12-12] MEDS: NS 500 ML IV ONE (04:51)
[2023-12-12] MEDS ORDERED: ACETAMINOPHEN TAB 650MG DOSE (2X325MG) PO PRN (05:20)
[2023-12-12 06:00] VITALS: BP 100/53; TEMP 98.3; O2SAT 98
[2023-12-12] MEDS: FOSPHENYTOIN SODIUM IV ONE (06:31)
[2023-12-12] MEDS: NS IV ONE (06:31)
[2023-12-12] MEDS ORDERED: FLEEENE12 PR (07:04)
[2023-12-12] MEDS ORDERED: BISA10SU PR (07:04)
[2023-12-12] MEDS ORDERED: ACET1TAB55 PO (07:04)
[2023-12-12] MEDS ORDERED: GABA600T4 PO (07:04)
[2023-12-12] MEDS ORDERED: MILK24002 PO (07:04)
[2023-12-12] MEDS ORDERED: TRAZ-252 PO (07:04)
[2023-12-12] MEDS ORDERED: VIMP150T PO (07:04)
[2023-12-12] MEDS ORDERED: VIMP100T PO (07:04)
[2023-12-12] MEDS ORDERED: MM S100C PO (07:04)
[2023-12-12] MEDS ORDERED: HOME MED LIST COMPLETE! XX SCH (07:05)
[2023-12-12 07:15] LABS: BASO # 0.1 10^3/uL (0.0-0.2); BASO % 0.6 % (0.0-1.0); EOS # 0.2 10^3/uL (0.0-0.5); EOS % 2.1 % (0.0-3.0); HEMATOCRIT 36.2 % (36.0-47.0); HEMOGLOBIN 11.6 g/dl (12.0-15.5); LYMPH # 3.9 10^3/uL (1.5-5.0); LYMPH % 39.3 % (24.0-44.0); MEAN CORPUSCULAR HEMOGLOBIN 31.1 pg (27.0-33.0); MEAN CORPUSCULAR VOLUME 97.1 fl (80.0-96.0); MONO # 1.1 10^3/uL (0.0-0.8); MONO % 11.4 % (2.0-8.0); NEUTROPHILS # 4.4 10^3/uL (1.5-8.5); NEUTROPHILS % 44.8 % (36.0-66.0); PLATELET COUNT, AUTOMATED 132 10^3/uL (150-450); RED BLOOD COUNT 3.73 10^6/uL (4.00-5.40); WHITE BLOOD COUNT 9.9 10^3/uL (4.0-10.0)
[2023-12-12 07:38] VITALS: BP 92/68; TEMP 97.5; O2SAT 98
[2023-12-12 07:39] LABS: BLOOD UREA NITROGEN 19 MG/DL (9-23); CARBON DIOXIDE LEVEL 29 MMOL/L (20-31); CHLORIDE LEVEL 103 MMOL/L (98-107); GLOMERULAR FILTRATION RATE > 60.0 (>45); GLUCOSE, FASTING 86 MG/DL (74-106); POTASSIUM SERUM 4.9 MMOL/L (3.5-5.1); SODIUM LEVEL 136 MMOL/L (136-145)
[2023-12-12] MEDS ORDERED: PILL CUTTER 1 EACH XX PRN (08:55)
[2023-12-12] MEDS: LACOSAMIDE 50 MG TAB (VIMPAT) PO SCH ×2 (09:06→20:10)
[2023-12-12] MEDS: LEVOTHYROXINE 100MCG TABLET (0.1MG) PO SCH (09:07)
[2023-12-12] MEDS: DOCUSATE SODIUM 100MG CAPSULE PO SCH (09:07)
[2023-12-12 11:40] VITALS: TEMP 97.6; O2SAT 97
[2023-12-12 12:00] VITALS: BP 92/60
[2023-12-12] MEDS ORDERED: DEXTROSE 50% 50ML SYRINGE IV PRN (12:00)
[2023-12-12] MEDS ORDERED: GLUCOSE 4GM CHEW TABLET PO PRN (12:00)
[2023-12-12] MEDS ORDERED: GLUCAGON INJ 1MG VIAL SC PRN (12:00)
[2023-12-12] MEDS: DIVALPROEX 250MG TAB PO SCH (12:43)
[2023-12-12] MEDS: INSULIN LISPRO (NovoLOG) PER UNIT SC SCH ×2 (12:43→19:40)
[2023-12-12 17:00] VITALS: BP 133/81; TEMP 97.9; O2SAT 96
[2023-12-12 22:00] VITALS: BP 132/78; TEMP 97.5; O2SAT 95
[2023-12-13 06:00] VITALS: BP 127/68; TEMP 97.7; O2SAT 97
[2023-12-13 06:40] LABS: BLOOD UREA NITROGEN 13 MG/DL (9-23); CARBON DIOXIDE LEVEL 32 MMOL/L (20-31); CHLORIDE LEVEL 103 MMOL/L (98-107); CREATININE FOR GFR 0.59 MG/DL (0.55-1.30); GLOMERULAR FILTRATION RATE > 60.0 (>45); GLUCOSE, FASTING 110 MG/DL (74-106); POTASSIUM SERUM 4.7 MMOL/L (3.5-5.1); SODIUM LEVEL 138 MMOL/L (136-145)
[2023-12-13 06:46] LABS: BASO # 0.1 10^3/uL (0.0-0.2); BASO % 0.8 % (0.0-1.0); EOS # 0.2 10^3/uL (0.0-0.5); HEMATOCRIT 37.6 % (36.0-47.0); HEMOGLOBIN 12.1 g/dl (12.0-15.5); LYMPH # 2.9 10^3/uL (1.5-5.0); LYMPH % 38.7 % (24.0-44.0); MEAN CORPUSCULAR HEMOGLOBIN 31.8 pg (27.0-33.0); MEAN CORPUSCULAR HGB CONC 32.2 g/dl (32.0-36.5); MEAN CORPUSCULAR VOLUME 98.7 fl (80.0-96.0); MONO # 0.7 10^3/uL (0.0-0.8); MONO % 9.8 % (2.0-8.0); NEUTROPHILS # 3.4 10^3/uL (1.5-8.5); NEUTROPHILS % 46.1 % (36.0-66.0); PLATELET COUNT, AUTOMATED 133 10^3/uL (150-450); RED BLOOD COUNT 3.81 10^6/uL (4.00-5.40); WHITE BLOOD COUNT 7.4 10^3/uL (4.0-10.0)
[2023-12-13] MEDS: cefTRIAXone SOD 1 GM in D5W MINI-BAG PLUS 50 ML IV SCH (13:24)
[2023-12-13] MEDS: SITagliptin 50 MG TAB (JANUVIA) PO SCH (13:24)
[2023-12-13] MEDS: GABAPENTIN 300 MG CAP PO SCH (13:24)
[2023-12-13] MEDS: DULoxetine 20MG CAP (CYMBALTA) PO SCH (13:24)
[2023-12-13 14:00] VITALS: TEMP 97.9; O2SAT 97
[2023-12-13 20:10] VITALS: BP 141/71; TEMP 97.7; O2SAT 95
[2023-12-13] MEDS: AMITRIPTYLINE 50 MG TAB PO SCH (21:59)
[2023-12-13] MEDS: DIVALPROEX SPRINKLE 125 MG CAP PO SCH (23:24)
[2023-12-14 05:18] VITALS: BP 133/71; TEMP 97.5; O2SAT 97
[2023-12-14 07:03] LABS: BASO # 0.1 10^3/uL (0.0-0.2); BASO % 0.9 % (0.0-1.0); EOS # 0.2 10^3/uL (0.0-0.5); EOS % 2.3 % (0.0-3.0); HEMOGLOBIN 11.7 g/dl (12.0-15.5); LYMPH # 2.5 10^3/uL (1.5-5.0); LYMPH % 36.3 % (24.0-44.0); MEAN CORPUSCULAR HEMOGLOBIN 31.4 pg (27.0-33.0); MEAN CORPUSCULAR HGB CONC 32.5 g/dl (32.0-36.5); MEAN CORPUSCULAR VOLUME 96.5 fl (80.0-96.0); MONO # 0.9 10^3/uL (0.0-0.8); MONO % 13.3 % (2.0-8.0); NEUTROPHILS # 3.1 10^3/uL (1.5-8.5); NEUTROPHILS % 45.4 % (36.0-66.0); PLATELET COUNT, AUTOMATED 146 10^3/uL (150-450); RED BLOOD COUNT 3.73 10^6/uL (4.00-5.40); WHITE BLOOD COUNT 6.8 10^3/uL (4.0-10.0)
[2023-12-14 07:34] LABS: BLOOD UREA NITROGEN 11 MG/DL (9-23); CALCIUM LEVEL 8.7 MG/DL (8.3-10.6); CARBON DIOXIDE LEVEL 30 MMOL/L (20-31); CHLORIDE LEVEL 105 MMOL/L (98-107); CREATININE FOR GFR 0.62 MG/DL (0.55-1.30); GLOMERULAR FILTRATION RATE > 60.0 (>45); GLUCOSE, FASTING 190 MG/DL (74-106); POTASSIUM SERUM 4.4 MMOL/L (3.5-5.1); SODIUM LEVEL 138 MMOL/L (136-145)
[2023-12-14] MEDS ORDERED: CEFD1CAP9 PO (08:58)
[2023-12-14] MEDS: DULoxetine 20MG CAP (CYMBALTA) PO SCH (09:10)
[2023-12-14] MEDS: DOCUSATE SOD LIQ 100MG/10ML UDC PO SCH (09:11)
== END 2023-12-14 13:42 | DRG 53 ==
LOC: M ED 23:22 → EDBD 23:22 → M ED INP 12-12 05:16 → ENRESERV 12-12 05:36 → M PCU 12-12 06:02 → M MSPAV 12-12 16:56
PROVIDERS: ADMIT Internal Medicine; ATTEND Internal Medicine Nephrology
DX: G40.909 Epilepsy, unspecified, not intractable, without status epilepticus (principal); I27.20 Pulmonary hypertension, unspecified; I11.0 Hypertensive heart disease with heart failure; E66.01 Morbid (severe) obesity due to excess calories; E87.5 Hyperkalemia; I50.32 Chronic diastolic (congestive) heart failure; F03.90 Unspecified dementia, unspecified severity, without behavioral disturbance, psychotic disturbance, mood disturbance, and anxiety; E11.43 Type 2 diabetes mellitus with diabetic autonomic (poly)neuropathy; K31.84 Gastroparesis; R13.10 Dysphagia, unspecified; N30.90 Cystitis, unspecified without hematuria; K21.9 Gastro-esophageal reflux disease without esophagitis; R47.1 Dysarthria and anarthria; Z68.38 Body mass index [BMI] 38.0-38.9, adult; Z74.01 Bed confinement status; F43.10 Post-traumatic stress disorder, unspecified; E03.9 Hypothyroidism, unspecified; F41.1 Generalized anxiety disorder; F32.A Depression, unspecified; M19.90 Unspecified osteoarthritis, unspecified site; K59.00 Constipation, unspecified; D50.9 Iron deficiency anemia, unspecified; I87.2 Venous insufficiency (chronic) (peripheral); Z91.013 Allergy to seafood; Z88.8 Allergy status to other drugs, medicaments and biological substances; Z88.6 Allergy status to analgesic agent; Z79.899 Other long term (current) drug therapy; Z79.4 Long term (current) use of insulin

== ENCOUNTER → 2024-01-10 | Outpatient (REF) | payer MEDICARE, MEDICAID ==
[~2024-01-10] MED LIST changes: +ACET1TAB55 PO; +BISA10SU PR; +CEFD1CAP9 PO; +FLEEENE12 PR; +GABA600T4 PO; +MILK24002 PO; +TRAZ-252 PO
== END ==
LOC: SKLAB5 08:36
PROVIDERS: ATTEND Nurse Practitioner Family
DX: G40.909 Epilepsy, unspecified, not intractable, without status epilepticus (principal)

== ENCOUNTER → 2024-03-07 | Outpatient (REF) | payer MEDICARE, MEDICAID ==
[~2024-03-07] MED LIST changes: +ESOM1CAP20 PO; -ESOM1CAP5 PO
[2024-03-07 10:15] LABS: HEMATOCRIT 41.6 % (36.0-47.0); HEMOGLOBIN 13.4 g/dl (12.0-15.5); MEAN CORPUSCULAR HEMOGLOBIN 30.8 pg (27.0-33.0); MEAN CORPUSCULAR HGB CONC 32.2 g/dl (32.0-36.5); MEAN CORPUSCULAR VOLUME 95.6 fl (80.0-96.0); PLATELET COUNT, AUTOMATED 156 10^3/uL (150-450); RED BLOOD COUNT 4.35 10^6/uL (4.00-5.40); WHITE BLOOD COUNT 6.3 10^3/uL (4.0-10.0)
[2024-03-07 10:36] LABS: HEMOGLOBIN A1c 9.8 % (4.0-6.0)
[2024-03-07 10:41] LABS: VALPROIC ACID (DEPAKOTE) 82.2 UG/ML (50.0-100.0)
[2024-03-07 10:43] LABS: ALKALINE PHOSPHATASE 70 U/L (46-116); ALT/SGPT 14 U/L (7.0-40); AST/SGOT < 8 U/L (<34); BILIRUBIN,TOTAL 0.2 MG/DL (0.3-1.2); BLOOD UREA NITROGEN 16 MG/DL (9-23); CALCIUM LEVEL 9.2 MG/DL (8.3-10.6); CARBON DIOXIDE LEVEL 34 MMOL/L (20-31); CHLORIDE LEVEL 99 MMOL/L (98-107); CREATININE FOR GFR 0.61 MG/DL (0.55-1.30); GLOMERULAR FILTRATION RATE > 60.0 (>45); GLUCOSE, FASTING 261 MG/DL (74-106); SODIUM LEVEL 138 MMOL/L (136-145); TOTAL PROTEIN 6.8 G/DL (5.7-8.2)
[2024-03-07 10:44] LABS: THYROID STIMULATING HORMONE 4.823 uIU/ML (0.55-4.78)
== END ==
LOC: SKLAB5 07:00
PROVIDERS: ATTEND Internal Medicine
DX: E03.9 Hypothyroidism, unspecified (principal); L03.90 Cellulitis, unspecified; E11.9 Type 2 diabetes mellitus without complications; G40.909 Epilepsy, unspecified, not intractable, without status epilepticus; Z79.899 Other long term (current) drug therapy

== ENCOUNTER → 2024-04-04 | Outpatient (REF) | payer MEDICARE, MEDICAID | LOC: SKLAB5 09:58 | PROVIDERS: ATTEND Internal Medicine | DX: G40.909 Epilepsy, unspecified, not intractable, without status epilepticus (principal) ==

== ENCOUNTER → 2024-04-28 | Outpatient (REF) | payer MEDICARE, MEDICAID ==
[2024-04-28 09:52] LABS: BASO % 0.5 % (0.0-1.0); EOS # 0.1 10^3/uL (0.0-0.5); EOS % 1.8 % (0.0-3.0); HEMATOCRIT 37.2 % (36.0-47.0); HEMOGLOBIN 12.2 g/dl (12.0-15.5); LYMPH # 1.6 10^3/uL (1.5-5.0); LYMPH % 21.6 % (24.0-44.0); MEAN CORPUSCULAR HEMOGLOBIN 31.6 pg (27.0-33.0); MEAN CORPUSCULAR HGB CONC 32.8 g/dl (32.0-36.5); MEAN CORPUSCULAR VOLUME 96.4 fl (80.0-96.0); MONO # 1.1 10^3/uL (0.0-0.8); MONO % 14.9 % (2.0-8.0); NEUTROPHILS # 4.4 10^3/uL (1.5-8.5); NEUTROPHILS % 59.6 % (36.0-66.0); PLATELET COUNT, AUTOMATED 161 10^3/uL (150-450); RED BLOOD COUNT 3.86 10^6/uL (4.00-5.40); WHITE BLOOD COUNT 7.4 10^3/uL (4.0-10.0)
[2024-04-28 10:16] LABS: ALBUMIN 2.7 G/DL (3.2-5.2); ALKALINE PHOSPHATASE 55 U/L (46-116); ALT/SGPT 13 U/L (7.0-40); AST/SGOT 9 U/L (<34); BILIRUBIN,TOTAL 0.2 MG/DL (0.3-1.2); BLOOD UREA NITROGEN 10 MG/DL (9-23); CALCIUM LEVEL 8.7 MG/DL (8.3-10.6); CARBON DIOXIDE LEVEL 32 MMOL/L (20-31); CHLORIDE LEVEL 99 MMOL/L (98-107); CREATININE FOR GFR 0.54 MG/DL (0.55-1.30); GLOMERULAR FILTRATION RATE > 60.0 (>45); GLUCOSE, FASTING 147 MG/DL (74-106); POTASSIUM SERUM 4.2 MMOL/L (3.5-5.1); SODIUM LEVEL 136 MMOL/L (136-145); TOTAL PROTEIN 6.5 G/DL (5.7-8.2)
== END ==
LOC: SKLAB5 08:16
PROVIDERS: ATTEND Internal Medicine
DX: U07.1 COVID-19 (principal); Z79.899 Other long term (current) drug therapy

== ENCOUNTER 2024-05-09 02:27 | Emergency (ER) | payer MEDICARE, MEDICAID ==
[2024-05-09 03:37] LABS: INR 0.95; PARTIAL THROMBOPLASTIN TIME 21.5 SECONDS (24.8-34.2); PROTHROMBIN TIME 12.4 SECONDS (12.5-14.5)
[2024-05-09 04:43] LABS: CK-MB VALUE MASS < 1.0 NG/ML (<3.6)
[2024-05-09 04:44] LABS: BLOOD UREA NITROGEN 17 MG/DL (9-23); CALCIUM LEVEL 9.2 MG/DL (8.3-10.6); CARBON DIOXIDE LEVEL 27 MMOL/L (20-31); CHLORIDE LEVEL 102 MMOL/L (98-107); CREATININE FOR GFR 0.72 MG/DL (0.55-1.30); GLOMERULAR FILTRATION RATE > 60.0 (>45); GLUCOSE, FASTING 139 MG/DL (74-106); POTASSIUM SERUM 4.5 MMOL/L (3.5-5.1); SODIUM LEVEL 135 MMOL/L (136-145)
[2024-05-09 04:53] LABS: CPK CREATINE PHOSPHOKINASE 15 U/L (34-145); MB/CK RELATIVE INDEX 6.66 (< OR =4)
[2024-05-09 05:18] LABS: BASO # 0.1 10^3/uL (0.0-0.2); BASO % 0.7 % (0.0-1.0); EOS # 0.3 10^3/uL (0.0-0.5); EOS % 3.1 % (0.0-3.0); HEMATOCRIT 38.9 % (36.0-47.0); HEMOGLOBIN 12.6 g/dl (12.0-15.5); LYMPH # 3.2 10^3/uL (1.5-5.0); LYMPH % 35.2 % (24.0-44.0); MEAN CORPUSCULAR HEMOGLOBIN 31.2 pg (27.0-33.0); MEAN CORPUSCULAR HGB CONC 32.4 g/dl (32.0-36.5); MEAN CORPUSCULAR VOLUME 96.3 fl (80.0-96.0); MONO % 10.6 % (2.0-8.0); NEUTROPHILS # 4.4 10^3/uL (1.5-8.5); NEUTROPHILS % 48.1 % (36.0-66.0); PLATELET COUNT, AUTOMATED 185 10^3/uL (150-450); RED BLOOD COUNT 4.04 10^6/uL (4.00-5.40); WHITE BLOOD COUNT 9.1 10^3/uL (4.0-10.0)
[2024-05-09 05:51] LABS: CK-MB VALUE MASS < 1.0 NG/ML (<3.6); CPK CREATINE PHOSPHOKINASE < 15 U/L (34-145)
[2024-05-09 06:42] VITALS: BP 158/80; TEMP 96.8; O2SAT 99
== END 2024-05-09 06:49 | disposition home or self-care (01) ==
LOC: M ED 02:27
DX: Z71.1 Person with feared health complaint in whom no diagnosis is made (principal); I10 Essential (primary) hypertension; G40.909 Epilepsy, unspecified, not intractable, without status epilepticus; F41.9 Anxiety disorder, unspecified; F43.10 Post-traumatic stress disorder, unspecified; F31.9 Bipolar disorder, unspecified; K59.00 Constipation, unspecified; E11.9 Type 2 diabetes mellitus without complications; Z86.79 Personal history of other diseases of the circulatory system; Z79.84 Long term (current) use of oral hypoglycemic drugs; Z88.6 Allergy status to analgesic agent; Z88.8 Allergy status to other drugs, medicaments and biological substances; Z91.013 Allergy to seafood; Z91.048 Other nonmedicinal substance allergy status; Z79.811 Long term (current) use of aromatase inhibitors; Z79.899 Other long term (current) drug therapy

== ENCOUNTER → 2024-05-09 | Outpatient (REF) | payer MEDICARE, MEDICAID ==
[2024-05-10 10:37] LABS: HEPATITIS B SURFACE ANTIGEN NEGATIVE (NEGATIVE)
[2024-05-10 10:50] LABS: HIV SCREEN CENTAUR SOURCE NEGATIVE (NEGATIVE)
== END ==
LOC: SKLAB5 13:58
PROVIDERS: ATTEND Internal Medicine
DX: Z11.59 Encounter for screening for other viral diseases (principal); Z11.4 Encounter for screening for human immunodeficiency virus [HIV]

== ENCOUNTER → 2024-05-13 | Outpatient (REF) | payer MEDICARE, MEDICAID ==
[~2024-05-13] MED LIST changes: +GABA-1490 PO; -GABA600T4 PO
== END ==
LOC: SKLAB5 05-12 14:03
PROVIDERS: ATTEND Internal Medicine
DX: G40.909 Epilepsy, unspecified, not intractable, without status epilepticus (principal)

== ENCOUNTER → 2024-06-06 | Outpatient (REF) | payer MEDICARE, MEDICAID ==
[2024-06-06 16:03] LABS: HEMATOCRIT 39.3 % (36.0-47.0); HEMOGLOBIN 12.5 g/dl (12.0-15.5); MEAN CORPUSCULAR HEMOGLOBIN 30.9 pg (27.0-33.0); MEAN CORPUSCULAR HGB CONC 31.8 g/dl (32.0-36.5); MEAN CORPUSCULAR VOLUME 97.3 fl (80.0-96.0); PLATELET COUNT, AUTOMATED 198 10^3/uL (150-450); RED BLOOD COUNT 4.04 10^6/uL (4.00-5.40)
[2024-06-06 16:25] LABS: HEMOGLOBIN A1c 7.6 % (4.0-6.0); VALPROIC ACID (DEPAKOTE) 47.3 UG/ML (50.0-100.0)
[2024-06-06 16:27] LABS: THYROID STIMULATING HORMONE 12.863 uIU/ML (0.55-4.78)
[2024-06-06 16:29] LABS: ALBUMIN 2.9 G/DL (3.2-5.2); ALKALINE PHOSPHATASE 61 U/L (46-116); ALT/SGPT 14 U/L (7.0-40); AST/SGOT 11 U/L (<34); BILIRUBIN,TOTAL 0.2 MG/DL (0.3-1.2); BLOOD UREA NITROGEN 17 MG/DL (9-23); CALCIUM LEVEL 9.2 MG/DL (8.3-10.6); CARBON DIOXIDE LEVEL 28 MMOL/L (20-31); CHLORIDE LEVEL 101 MMOL/L (98-107); GLOMERULAR FILTRATION RATE > 60.0 (>45); GLUCOSE, FASTING 196 MG/DL (74-106); POTASSIUM SERUM 4.2 MMOL/L (3.5-5.1); SODIUM LEVEL 138 MMOL/L (136-145); TOTAL PROTEIN 6.7 G/DL (5.7-8.2)
== END ==
LOC: SKLAB5 07:00
PROVIDERS: ATTEND Internal Medicine
DX: G40.909 Epilepsy, unspecified, not intractable, without status epilepticus (principal); E11.9 Type 2 diabetes mellitus without complications; I50.9 Heart failure, unspecified; E03.9 Hypothyroidism, unspecified

== ENCOUNTER → 2024-07-04 | Outpatient (REF) | payer MEDICARE, MEDICAID ==
[~2024-07-04] MED LIST changes: +GABA-1172 PO; -GABA-282 PO
== END ==
LOC: SKLAB5 08:14
PROVIDERS: ATTEND Internal Medicine
DX: G40.909 Epilepsy, unspecified, not intractable, without status epilepticus (principal); Z79.899 Other long term (current) drug therapy

== ENCOUNTER → 2024-09-22 | Outpatient (REF) | payer MEDICARE, MEDICAID ==
[~2024-09-22] MED LIST changes: +BUDE180A2 INH; -BUDE180INH INH; -GEOD40CA13 PO; +MAGN400O73 PO; -MILK24002 PO; +NYST1POW3 TOP; -NYST1POW9 TOP; -VALP250S PO; +VALP250S26 PO; +ZIPR40CA27 PO; -ZIPR80CA12 PO; +ZIPR80CA31 PO
[2024-09-22 10:27] LABS: HEMATOCRIT 38.2 % (36.0-47.0); HEMOGLOBIN 12.2 g/dl (12.0-15.5); MEAN CORPUSCULAR HEMOGLOBIN 30.3 pg (27.0-33.0); MEAN CORPUSCULAR HGB CONC 31.9 g/dl (32.0-36.5); PLATELET COUNT, AUTOMATED 194 10^3/uL (150-450); RED BLOOD COUNT 4.02 10^6/uL (4.00-5.40); WHITE BLOOD COUNT 7.7 10^3/uL (4.0-10.0)
[2024-09-22 10:53] LABS: VALPROIC ACID (DEPAKOTE) 74.3 UG/ML (50.0-100.0)
[2024-09-22 11:20] LABS: ALBUMIN 2.9 G/DL (3.2-5.2); ALKALINE PHOSPHATASE 54 U/L (35-104); ALT/SGPT 14 U/L (7.0-40); AST/SGOT < 8 U/L (<34); BILIRUBIN,TOTAL 0.2 MG/DL (0.3-1.2); BLOOD UREA NITROGEN 16 MG/DL (9-23); CALCIUM LEVEL 9.4 MG/DL (8.3-10.6); CARBON DIOXIDE LEVEL 33 MMOL/L (20-31); CHLORIDE LEVEL 96 MMOL/L (98-107); GLOMERULAR FILTRATION RATE > 60.0 (>45); GLUCOSE, FASTING 154 MG/DL (74-106); POTASSIUM SERUM 4.3 MMOL/L (3.5-5.1); SODIUM LEVEL 138 MMOL/L (136-145); THYROID STIMULATING HORMONE 10.559 uIU/ML (0.55-4.78); TOTAL PROTEIN 6.7 G/DL (5.7-8.2)
== END ==
LOC: SKLAB5 10:20
PROVIDERS: ATTEND Internal Medicine
DX: E03.9 Hypothyroidism, unspecified (principal); I50.9 Heart failure, unspecified; E11.9 Type 2 diabetes mellitus without complications; G40.909 Epilepsy, unspecified, not intractable, without status epilepticus

== ENCOUNTER → 2024-09-26 | Outpatient (REF) | payer MEDICARE, MEDICAID ==
[2024-09-26 08:42] LABS: BLOOD UREA NITROGEN 16 MG/DL (9-23); CALCIUM LEVEL 9.3 MG/DL (8.3-10.6); CARBON DIOXIDE LEVEL 35 MMOL/L (20-31); CHLORIDE LEVEL 102 MMOL/L (98-107); CREATININE FOR GFR 0.55 MG/DL (0.55-1.30); GLOMERULAR FILTRATION RATE > 60.0 (>45); GLUCOSE, FASTING 160 MG/DL (74-106); POTASSIUM SERUM 4.4 MMOL/L (3.5-5.1); SODIUM LEVEL 139 MMOL/L (136-145)
== END ==
LOC: SKLAB5 02:48
PROVIDERS: ATTEND Internal Medicine
DX: G40.909 Epilepsy, unspecified, not intractable, without status epilepticus (principal)

== ENCOUNTER → 2024-10-17 | Outpatient (REF) | payer MEDICARE, MEDICAID | LOC: SKLAB5 07:00 | PROVIDERS: ATTEND Internal Medicine | DX: G40.909 Epilepsy, unspecified, not intractable, without status epilepticus (principal) ==

== ENCOUNTER → 2025-01-18 | Outpatient (REF) | payer MEDICARE, MEDICAID ==
[2025-01-18 07:39] LABS: HEMATOCRIT 36.3 % (36.0-47.0); HEMOGLOBIN 11.8 g/dl (12.0-15.5); MEAN CORPUSCULAR HEMOGLOBIN 31.1 pg (27.0-33.0); MEAN CORPUSCULAR HGB CONC 32.5 g/dl (32.0-36.5); MEAN CORPUSCULAR VOLUME 95.5 fl (80.0-96.0); PLATELET COUNT, AUTOMATED 178 10^3/uL (150-450); WHITE BLOOD COUNT 7.7 10^3/uL (4.0-10.0)
[2025-01-18 08:06] LABS: ALBUMIN 2.7 G/DL (3.2-5.2); ALKALINE PHOSPHATASE 52 U/L (35-104); ALT/SGPT 14 U/L (7.0-40); AST/SGOT < 8 U/L (<34); BILIRUBIN,TOTAL 0.2 MG/DL (0.3-1.2); BLOOD UREA NITROGEN 16 MG/DL (9-23); CALCIUM LEVEL 8.7 MG/DL (8.3-10.6); CARBON DIOXIDE LEVEL 33 MMOL/L (20-31); CHLORIDE LEVEL 98 MMOL/L (98-107); CREATININE FOR GFR 0.58 MG/DL (0.55-1.30); GLOMERULAR FILTRATION RATE > 90.0 (>45); GLUCOSE, FASTING 131 MG/DL (74-106); POTASSIUM SERUM 3.9 MMOL/L (3.5-5.1); SODIUM LEVEL 139 MMOL/L (136-145)
[2025-01-18 08:23] LABS: HEMOGLOBIN A1c 8.5 % (4.0-6.0)
== END ==
LOC: SKLAB5 07:00
PROVIDERS: ATTEND Internal Medicine
DX: E03.9 Hypothyroidism, unspecified (principal); G40.909 Epilepsy, unspecified, not intractable, without status epilepticus; Z79.899 Other long term (current) drug therapy; E11.9 Type 2 diabetes mellitus without complications

== ENCOUNTER → 2025-05-17 | Outpatient (REF) | payer MEDICARE, MEDICAID ==
[~2025-05-17] MED LIST changes: +ACET-1515 PO; -ACET650T15 PO; +AMMO12CR4 TOP; -AMMO12CR7 TOP; -DEPA250T32 PO; +DIVA-41 PO; +DIVA-65 PO; -DIVA500T94 PO; +LIDO1ADH93 TD; -LIDO5DIS41 TD; +LORA-1164 PO; -LORA-622 PO
[2025-05-17 09:33] LABS: PLATELET COUNT, AUTOMATED 201 10^3/uL (150-450)
[2025-05-17 09:48] LABS: ESTIMATED AVERAGE GLUCOSE 189.0 MG/DL (60-110)
[2025-05-17 09:53] LABS: VALPROIC ACID (DEPAKOTE) 67.2 UG/ML (50.0-100.0)
[2025-05-17 09:55] LABS: ALT/SGPT 11 U/L (7.0-40); AST/SGOT 11 U/L (<34); CALCIUM LEVEL 8.9 MG/DL (8.3-10.6); CARBON DIOXIDE LEVEL 32 MMOL/L (20-31); CHLORIDE LEVEL 99 MMOL/L (98-107); CREATININE FOR GFR 0.60 MG/DL (0.55-1.30); GLOMERULAR FILTRATION RATE > 90.0 (>45); POTASSIUM SERUM 4.4 MMOL/L (3.5-5.1); SODIUM LEVEL 140 MMOL/L (136-145)
== END ==
LOC: SKLAB5 07:00
PROVIDERS: ATTEND Internal Medicine
DX: E03.9 Hypothyroidism, unspecified (principal); I50.9 Heart failure, unspecified; E11.9 Type 2 diabetes mellitus without complications; G40.909 Epilepsy, unspecified, not intractable, without status epilepticus; Z79.899 Other long term (current) drug therapy

== ENCOUNTER → 2025-06-01 | Outpatient (REF) | payer MEDICARE, MEDICAID ==
[2025-06-01 11:59] LABS: PLATELET COUNT, AUTOMATED 223 10^3/uL (150-450)
[2025-06-01 12:26] LABS: CALCIUM LEVEL 9.1 MG/DL (8.3-10.6); CARBON DIOXIDE LEVEL 28 MMOL/L (20-31); CHLORIDE LEVEL 99 MMOL/L (98-107); CHOLESTEROL LEVEL 160 MG/DL (<200); CHOLESTEROL RISK RATIO 3.61 (<5); CREATININE FOR GFR 0.58 MG/DL (0.55-1.30); GLOMERULAR FILTRATION RATE > 90.0 (>45); LDL CHOLESTEROL 79.8 MG/DL (<100); NON-HDL-C 115.8 MG/DL; POTASSIUM SERUM 4.4 MMOL/L (3.5-5.1); SODIUM LEVEL 138 MMOL/L (136-145); TRIGLYCERIDES LEVEL 180 MG/DL (<150)
[2025-06-01 12:28] LABS: ESTIMATED AVERAGE GLUCOSE 192.0 MG/DL (60-110)
== END ==
LOC: SKLAB5 07:00
PROVIDERS: ATTEND Internal Medicine
DX: E03.9 Hypothyroidism, unspecified (principal); E11.9 Type 2 diabetes mellitus without complications; D64.9 Anemia, unspecified

== ENCOUNTER → 2025-06-04 | Outpatient (REF) | payer MEDICARE, MEDICAID ==
[2025-06-04 16:31] LABS: FREE T4 0.96 NG/DL (0.89-1.76)
== END ==
LOC: SKLAB5 13:41
PROVIDERS: ATTEND Internal Medicine
DX: E03.9 Hypothyroidism, unspecified (principal)

== ENCOUNTER → 2025-08-08 | Outpatient (REF) | payer MEDICARE, MEDICAID ==
[2025-08-08 09:15] LABS: FREE T4 0.94 NG/DL (0.89-1.76)
== END ==
LOC: SKLAB5 07:24
PROVIDERS: ATTEND Internal Medicine
DX: E03.9 Hypothyroidism, unspecified (principal)

== ENCOUNTER → 2025-09-11 | Outpatient (REF) | payer MEDICARE, MEDICAID ==
[2025-09-11 09:47] LABS: ESTIMATED AVERAGE GLUCOSE 174.0 MG/DL (60-110)
== END ==
LOC: SKLAB5 07:00
PROVIDERS: ATTEND Internal Medicine
DX: G40.909 Epilepsy, unspecified, not intractable, without status epilepticus (principal); Z79.899 Other long term (current) drug therapy; E11.9 Type 2 diabetes mellitus without complications